=== PATIENT | female | born 1955 | race Caucasian/White ===

== ENCOUNTER 2023-07-06 10:53 | Outpatient (OUT) | payer MEDICARE, OTHER, SELFPAY ==
--- NOTE | 2023-07-06 10:55 | MM_ITS ---
Patient: TANYA WOODS Exam Date: 07/06/2023 : 1955 Gender:F Ordering : DR Karen Oneill M.D. Admission #: [id number] Family : Order #: [id number] CLICK HERE TO VIEW EXAM RADIOLOGY REPORT PROCEDURE: MM TOMOSYNTHESIS SCREENING BI COMPARISON: MG MAMM SCREEN ALCIDES W CAD, 08/25/2020. MG MAMM SCREEN ALCIDES W CAD, 09/13/2018. MG MAMM ALCIDES SCRN W CAD DIG, 10/03/2016. MG MAMM ALCIDES SCRN W CAD DIG, 04/08/2013. INDICATIONS: Screening Calculator Name NCI Breast Cancer Risk Assessment Tool 5 Year Breast Cancer Risk 1.40% Lifetime Breast Cancer Risk 5.00% Personal Breast Cancer No Personal Ovarian Cancer No Treatments None Family Cancers Mother with uterine cancer at age 50. LOCATION: [facility] [place] BREAST COMPOSITION: Heterogeneously dense,which may obscure small masses. FINDINGS: DIAGNOSTIC CATEGORY 2--BENIGN FINDING: RIGHT BREAST: No significant suspicious finding. Scattered benign-appearing nodules are present. Scattered benign-appearing calcifications are present. No significant change has occurred. LEFT BREAST: No significant suspicious finding. Scattered benign-appearing nodules are present. Scattered benign-appearing calcifications are present. No significant change has occurred. RECOMMENDATIONS: ROUTINE MAMMOGRAM AND CLINICAL EVALUATION IN 12 MONTHS. PLEASE NOTE: A NORMAL MAMMOGRAM DOES NOT EXCLUDE THE POSSIBILITY OF BREAST CANCER. A CLINICALLY SUSPICIOUS PALPABLE LUMP SHOULD BE BIOPSIED. Dictated by: Elijah Dailey M.D. on 07/07/2023 at 11:16 Approved by: Elijah Dailey M.D. on 07/07/2023 at 11:18
== END 2023-07-06 10:54 | disposition home or self-care (01) ==
LOC: MAMMO 10:53
PROVIDERS: PCP Family Medicine; Visit Provider Family Medicine
DX: Z12.31 Encounter for screening mammogram for malignant neoplasm of breast (principal); Z80.49 Family history of malignant neoplasm of other genital organs
CPT/HCPCS: 77063; 77067

== ENCOUNTER 2023-07-11 13:52 | Outpatient (OUT) | payer MEDICARE, OTHER, SELFPAY ==
--- NOTE | 2023-07-11 14:02 | ECG_ITS ---
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
--- NOTE | 2023-07-11 14:24 | XR_ITS ---
The [address] [address] Patient Name: TANYA WOODS MRN: [id number] date: 1955 Sex: F Assigned Patient Location: RAD Current Patient Location: RAD Accession/Order Number: [id number] Exam Date: 07/11/2023 14:27 Report Date: 07/11/2023 16:07 At the request of: CORDELL MASTERS Procedure: XR chest 2V EXAMINATION: XR chest 2V, 07/11/2023 2:27 PM EDT HISTORY: Cough, congestion COMPARISON: CT 08/12/2019 TECHNIQUE: PA and lateral views of the chest were obtained. FINDINGS: Medical devices: None. Cardiomediastinal silhouette is within normal limits. Minimal linear atelectasis/scarring in the lingula and anterior left lower lobe. Lungs are otherwise clear. No pleural effusion or pneumothorax. No acute bony or soft tissue abnormalities. XR/XR chest 2V IMPRESSION: 1. No acute cardiopulmonary abnormality. Electronically authenticated by: VIVIAN DRAPER Date: 07/11/2023 16:07
== END 2023-07-11 13:53 | disposition home or self-care (01) ==
LOC: RAD 13:56
PROVIDERS: PCP Family Medicine; Visit Provider Family Medicine
DX: R07.9 Chest pain, unspecified (principal)
CPT/HCPCS: 71046; 93005

== ENCOUNTER 2024-04-06 11:10 | Outpatient (OUT) | payer MEDICARE, OTHER, SELFPAY ==
[2024-04-06 11:49] LABS: Microalbum Creatinine Ratio Ur 6.9 mg/g (0.0-29.9)
[2024-04-06 11:52] LABS: Basophils Absolute Auto 0.1 10^3/uL (0.0-0.1); Basophils Percent Auto 0.7 % (0.2-2.0); Eosinophils Absolute Auto 0.1 10^3/uL (0.0-0.7); Eosinophils Percent Auto 1.4 % (0.9-7.0); Hematocrit 43.3 % (36.0-48.0); Immature Granulocytes Abs Auto 0.03 10^3/uL (0.00-0.03); Immature Granulocytes Pct Auto 0.4 % (0.0-0.5); Lymphocytes Percent Auto 23.1 % (20.5-60.0); Mean Corpuscular HGB Conc 32.3 g/dL (29.9-35.2); Mean Corpuscular Hemoglobin 31.2 pg (26.7-34.0); Mean Corpuscular Volume 96.4 fL (81.0-99.0); Mean Platelet Volume 9.1 fL (9.5-13.5); Monocytes Absolute Auto 0.5 10^3/uL (0.3-0.8); Monocytes Percent Auto 6.1 % (1.7-12.0); Neutrophils Absolute Auto 5.8 10^3/uL (1.4-6.5); Neutrophils Percent Auto 68.3 % (43.0-75.0); Platelet Count 375 10^3/uL (150-450); Red Blood Count 4.49 10^6/uL (4.20-5.40); Red Cell Distribution Width 12.7 % (11.0-15.0); White Blood Count 8.5 10^3/uL (4.0-11.0)
[2024-04-06 12:13] LABS: Free T4 1.07 ng/dL (0.76-1.46)
[2024-04-06 12:17] LABS: Alanine Aminotransferase 19 U/L (14-59); Albumin Globulin Ratio 0.8; Albumin Level 3.3 g/dL (3.4-5.0); Alkaline Phosphatase 99 U/L (46-116); Anion Gap 13.2; Aspartate Amino Transferase 9 U/L (15-37); BUN Creatinine Ratio 6.1; Bilirubin Total 0.7 mg/dL (0.2-1.0); Calcium 8.5 mg/dL (8.5-10.1); Carbon Dioxide 27.3 mmol/L (21.0-32.0); Chloride 101 mmol/L (98-107); Chol HDL Ratio 3.6; Cholesterol 153 mg/dL (<=200); Estimated GFR (African America >60 (>=60); Estimated GFR (Non-African Ame >60 (>=60); Glucose 146 mg/dL (74-106); HDL Cholesterol 43 mg/dL (40-60); Potassium 3.5 mmol/L (3.5-5.1); Sodium 138 mmol/L (136-145); Thyroid Stimulating Hormone 5.119 uIU/mL (0.358-3.740); Total Protein 7.3 g/dL (6.4-8.2); Triglycerides 206 mg/dL (<=150); VLDL CHOLESTEROL 41.2 mg/dL
[2024-04-06 13:22] LABS: Bilirubin Urine NEGATIVE (NEGATIVE); Blood Urine NEGATIVE (NEGATIVE); Clarity Urine CLEAR (CLEAR); Color Urine YELLOW (YELLOW); Glucose Urine UA NEGATIVE (NEGATIVE); Ketones Urine NEGATIVE (NEGATIVE); Leukocyte Esterase Urine NEGATIVE (NEGATIVE); Nitrite Urine NEGATIVE (NEGATIVE); Protein Urine TRACE mg/dL (NEG/TRACE); Specific Gravity Urine >=1.030 (1.005-1.025); Urobilinogen Urine 0.2 EU/dL (0.2-1.0)
[2024-04-06 13:27] LABS: Urine Microscopic Indicated NO
== END 2024-04-06 11:11 | disposition home or self-care (01) ==
PROVIDERS: PCP Nurse Practitioner; Visit Provider Nurse Practitioner
DX: E03.9 Hypothyroidism, unspecified (principal); E11.59 Type 2 diabetes mellitus with other circulatory complications; I10 Essential (primary) hypertension
CPT/HCPCS: 36415; 80053; 80061; 81003; 82043; 82570; 84439; 84443; 85025

== ENCOUNTER 2024-11-07 13:28 | Outpatient (OUT) | payer MEDICARE, OTHER, SELFPAY ==
[2024-11-07 14:39] LABS: Basophils Absolute Auto 0.1 10^3/uL (0.0-0.1); Basophils Percent Auto 0.8 % (0.2-2.0); Eosinophils Absolute Auto 0.1 10^3/uL (0.0-0.7); Eosinophils Percent Auto 1.7 % (0.9-7.0); Hematocrit 42.6 % (36.0-48.0); Hemoglobin 14.2 g/dL (12.0-16.0); Immature Granulocytes Abs Auto 0.02 10^3/uL (0.00-0.03); Immature Granulocytes Pct Auto 0.3 % (0.0-0.5); Lymphocytes Absolute Auto 1.7 10^3/uL (1.2-3.8); Lymphocytes Percent Auto 25.4 % (20.5-60.0); Mean Corpuscular HGB Conc 33.3 g/dL (29.9-35.2); Mean Corpuscular Hemoglobin 31.2 pg (26.7-34.0); Mean Corpuscular Volume 93.6 fL (81.0-99.0); Mean Platelet Volume 9.3 fL (9.5-13.5); Monocytes Absolute Auto 0.6 10^3/uL (0.3-0.8); Monocytes Percent Auto 8.6 % (1.7-12.0); Neutrophils Absolute Auto 4.2 10^3/uL (1.4-6.5); Neutrophils Percent Auto 63.2 % (43.0-75.0); Platelet Count 361 10^3/uL (150-450); Red Blood Count 4.55 10^6/uL (4.20-5.40); Red Cell Distribution Width 13.1 % (11.0-15.0); White Blood Count 6.6 10^3/uL (4.0-11.0)
[2024-11-07 15:13] LABS: Anion Gap 9.5; BUN Creatinine Ratio 10.4; Calcium 8.2 mg/dL (8.5-10.1); Carbon Dioxide 30.6 mmol/L (21.0-32.0); Chloride 102 mmol/L (98-107); Estimated GFR (African America >60 (>=60 mL/min/1.73m^2); Estimated GFR (Non-African Ame 52 (>=60 mL/min/1.73m^2); Glucose 172 mg/dL (74-106); Potassium 4.1 mmol/L (3.5-5.1); Sodium 138 mmol/L (136-145); Thyroid Stimulating Hormone 1.524 uIU/mL (0.358-3.740)
== END 2024-11-07 13:29 | disposition home or self-care (01) ==
LOC: LAB 13:30
PROVIDERS: PCP Nurse Practitioner; Visit Provider Nurse Practitioner
DX: E03.9 Hypothyroidism, unspecified (principal); I63.9 Cerebral infarction, unspecified; E11.59 Type 2 diabetes mellitus with other circulatory complications
CPT/HCPCS: 36415; 80048; 84439; 84443; 85025

== ENCOUNTER 2024-11-13 14:01 | Outpatient (OUT) | payer MEDICARE, OTHER, SELFPAY ==
--- OUTSIDE RECORDS SUMMARY | 2024-11-13 14:28 | XMS_ITS | CCD ---
Author Organization [facility] Care Team Providers Care Refrigeration Engineer Name Role Phone Cordell Masters Primary Care Provider BHARAT ARMANDO Referring Unavailable SARA-TORI PEDRAZA Consulting Unavailable DAVID KEY Admitting Unavailable CORBY CHARLES Attending Unavailable RANDAL, LILLIAM Mera Consulting Unavailable CHIQUIJATINDER ELLISON Consulting Unavailable JAGDISHLEONORA WRIGHT Consulting Unavailable AOUAMYLES Campo Consulting Unavailable CHRIS BUTLER Consulting Unavailable LUCINA RIVAS Consulting Unavailable ERICK CAIN Consulting Unavailable MANOLO CONKLIN Referring Unavailable CORDELL MASTERS Primary Care Unavailable LONGTHORNE POORNIMA Referring Unavailable CORDELL MASTERS Primary Care Unavailable Cordell Masters MD Primary Care Provider DR CORDELL MASTERS Primary Care Unavailable GUERRERO, DR CORDELL Reed Admitting Unavailable GUERRERO, DR CORDELL Reed Attending Unavailable GUERRERO, DR CORDELL Reed Consulting Unavailable GUERRERO, DR CORDELL Reed Primary Care Unavailable GUERRERO, DR CORDELL Reed Admitting Unavailable GUERRERO, DR CORDELL Reed Attending Unavailable GUERRERO, DR CORDELL Reed Consulting Unavailable Cordell Masters Unavailable RANDAL, GEOFF Attending Unavailable RANDAL, GEOFF Referring Unavailable CORDELL MASTERS Primary Care Unavailable RANDAL, GEOFF Attending Unavailable RANDAL, GEOFF Referring Unavailable CORDELL MASTERS Primary Care Unavailable RANDAL, GEOFF Attending Unavailable RANDAL, GEOFF Referring Unavailable CORDELL MASTERS Primary Care Unavailable RANDAL, GEOFF Attending Unavailable RANDAL, GEOFF Referring Unavailable CORDELL MASTERS Primary Care Unavailable RANDAL, GEOFF Attending Unavailable RANDAL, GEOFF Referring Unavailable CORDELL MASTERS Primary Care Unavailable Anna PET HOUSE SITTER, Monika Unavailable Joshua BROWNPaul Primary Care Provider [phone] Anna PET HOUSE SITTER, Monika Unavailable HALLE BYERS Attending Unavailable NATHANIEL MURILLO Referring Unavailable MONIKA CASTILLO Attending Unavailable MONIKA CASTILLO Attending Unavailable HALLE BYERS Attending Unavailable HALLE BYERS Attending Unavailable MONIKA CASTILLO Attending Unavailable Medications Current Medications Medication Drug Class(es) Dates Sig (Normalized) Sig (Original) 3 ML semaglutide 1.34 MG/ML Pen Injector [Ozempic] (3 sources) Start: 03-10-2023 Ozempic (1 MG/DOSE) 4 MG/3ML as directed Subcutaneous February, Active amLODIPine 10 mg oral tablet (16 sources) Dihydropyridine Calcium Channel Ryley Start: 04-03-2024 End: 01-22-2025 take 1 tablet by mouth once daily amLODIPine (Norvasc) 10 MG tablet Indications: Primary hypertension (CMS/HCC) Take 1 tablet (10 mg) by mouth Daily 90 tablet 1 10/24/2024 01/22/2025 Active Start: 01-01-2024 take 10 mg by mouth once daily Amlodipine Active 10 MG PO Daily January 01, 2024 12:00am take 1 tablet by hailey th every twenty-four hours amLODIPine Besylate 10 MG 1 tablet Orally Once a day Active aspirin 81 mg oral tablet (4 sources) Platelet Aggregation Inhibitor, Nonsteroidal Anti-inflammatory Drug take 81 mg by mouth once daily ASPIRIN 81 PO Take 81 mg by mouth Daily Active atorvastatin 80 mg oral tablet (11 sources) HMG-CoA Reductase Inhibitor Start: 024 End: 025 take 1 tablet by mouth at bedtime atorvastatin (Lipitor) 80 MG tablet Indications: 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/HCC) Take 1 tablet (80 mg) by mouth at bedtime 90 tablet 1 10/24/2024 01/22/2025 Active Start: 01-01-2024 take 1 tablet by hailey th once daily Atorvastatin Active 0 .ROUTE .COMPLEX January 01, 2024 10:06am TAKE 1 TABLET BY MOUTH EVERY DAY FOR 90 DAYS Start: 01-01-2024 End: 01-01-2024 take 80 mg by mouth once daily Atorvastatin Discontinu ed 80 MG PO Daily 90 90 January 01, 2024 12:00am January 01, 2024 10:06am carvedilol 25 mg oral tablet (19 sources) alpha-Adrenergic Ryley, beta-Adrenergic Ryley Start: 04-03-2024 End: 01-22-2025 take 1 tablet by mouth in the morning carvedilol (Coreg) 25 MG tablet Indications: Primary hypertension (CMS/HCC) Take 1 tablet (25 mg) by mouth in the morning and 1 tablet (25 mg) in the evening. Take with meals. 180 tablet 1 10/24/2024 01/22/2025 Active Start: 01-01-2024 take 25 mg by mouth twice pura y Carvedilol Active 25 MG PO Twice daily January 01, 2024 12:00am take 1 tablet by hailey th every twelve hours Carvedilol 25 MG 1 tablet with food Orally Twice a day Active take 1 tablet by hailey th twice daily at mealtime carvedilol (COREG) 12.5 MG tablet Take 12.5 mg by mouth 2 times daily (with meals) 0 Active clopidogrel 75 mg oral tablet (13 sources) [id number] Platelet Inhibitor Start: 08-09-2024 End: 01-22-2025 take 1 tablet by mouth once daily clopidogrel (Plavix) 75 MG tablet Indications: Cerebrovascular accident (CVA), unspecified mechanism (CMS/HCC) Take 1 tablet (75 mg) by mouth Daily 90 tablet 1 10/24/2024 01/22/2025 Active Start: 01-01-2024 take 75 mg by mouth once daily Clopidogrel Active 75 MG PO Daily January 01, 2024 12:00am take 1 tablet by hailey th once daily Clopidogrel Bisulfate 75 MG TAKE 1 TABLET BY MOUTH EVERY DAY for 90 Active escitalopram 10 mg oral tablet (15 sources) Serotonin Reuptake Inhibitor Start: 04-03-2024 End: 01-22-2025 take 1 tablet by mouth once daily escitalopram (Lexapro) 10 MG tablet Indications: Anxiety and depression (CMS/HCC) Take 1 tablet (10 mg) by mouth Daily 90 tablet 1 10/24/2024 01/22/2025 Active Start: 01-01-2024 take 10 mg by mouth once daily Escitalopram Oxalate Active 10 MG PO Daily January 01, 2024 12:00am take 1 tablet by hailey th every twenty-four hours Lexapro 10 MG 1 tablet Orally Once a day for 30 days Active glipiZIDE 10 mg oral tablet (14 sources) Sulfonylurea Start: 04-03-2024 take 1 tablet by mouth once daily glipiZIDE (Glucotrol) 10 MG tablet Indications: 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/HCC) Take 1 tablet (10 mg) by mouth Daily 90 tablet 1 04/03/2024 Active Start: 01-01-2024 take 10 mg by mouth once daily Glipizide Active 10 MG PO Daily January 01, 2024 12:00am take 1 tablet by hailey th once daily glipiZIDE 10 MG TAKE 1 TABLET BY MOUTH EVERY DAY for 90 Active hyoscyamine sulfate 0.125 mg oral tablet (6 sources) take 1 tablet by mouth every four hours as needed hyoscyamine (ANASPAZ;LEVSIN) 125 MCG tablet Take 125 mcg by mouth every 4 hours as needed for Cramping 0 Active 3 ml insulin glargine 100 unt/ml pen injector (7 sources) Insulin Analog Start: 05-23-20 24 insulin glargine (Lantus SoloStar) 100 UNIT/ML pen Indications: 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/HCC) Inject 24 Units under the skin at bedtime 15 mL 3 05/23/2024 Active levothyroxine sodium 0.112 mg oral tablet (20 sources) l-Thyroxine Start: 10-16-19 End: 01-23-20 take 1 tablet by mouth before mealtime levothyroxine (Synthroid, Levoxyl) 112 MCG tablet Indications: Hypothyroidism, unspecified type (CMS/HCC) Take 1 tablet (112 mcg) by mouth in the morning. Take before meals. 90 tablet 1 10/24/2024 01/22/2025 Active Start: 04-03-2024 take 1 tablet by hailey th before mealtime levothyroxine (Synthroid, Levoxyl) 112 MCG tablet Indications: Hypothyroidism, unspecified type (CMS/HCC) Take 1 tablet (112 mcg) by mouth in the morning. Take before meals. 90 tablet 1 04/03/2024 Active Start: 01-15-2024 take 1 tablet by hailey th once daily Levothyroxine Active 0 .ROUTE .COMPLEX 90 January 15, 2024 12:35pm TAKE 1 TABLET BY MOUTH EVERY DAY Start: 01-01-2024 End: 01-15-2024 take 112 ug by mouth once daily Levothyroxine Discontinued 112 MCG PO Daily January 01, 2024 12:00am January 15, 2024 12:35pm Start: 01-12-2023 take 1 tablet by hailey th every twenty-four hours Levothyroxine Sodium 112 MCG 1 tablet Orally Once a day for 90 days Dec, Active take 1 tablet by hailey th once daily Levothyroxine Sodium 112 MCG TAKE 1 TABLET BY MOUTH EVERY DAY for 90 Active take 1 tablet by hailey th once daily levothyroxine (SYNTHROID) 150 MCG tablet Take 150 mcg by mouth Daily 0 Active 24 hr metFORMIN hydrochloride 500 mg extended release oral tablet (13 sources) Biguanide Start: 01-01-2024 take 500 mg by mouth once daily Metformin Active 500 MG PO Daily January 01, 2024 12:00am Start: 01-09-2023 take 1 tablet by hailey th every twenty-four hours metFORMIN HCl ER 500 MG 1 tablet Orally Once a day for 90 days Dec, Active take 1 tablet by mouth once pura y metFORMIN (GLUCOPHAGE) 500 MG tablet Take 500 mg by mouth nightly 0 Active metoprolol tartrate 25 mg oral tablet (3 sources) beta-Adrenergic Ryley Start: 08-24-2019 take 1 tablet by mouth twice daily metoprolol tartrate (LOPRESSOR) 25 MG tablet Take 1 tablet by mouth 2 times daily 60 tablet 3 08/24/2019 Active ozempic (1 mg/dose) 4 mg/3ml solution pen-injector (3 sources) Start: 03-10-2023 Ozempic (1 MG/DOSE) 4 MG/3ML as directed Subcutaneous February, Active pen needle 33G x 4 mm misc (7 sources) Start: 03-14-2024 pen needle 33G x 4 mm misc Indications: 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/HCC) Injections subcutaneous daily 100 each 3 03/14/2024 Active Semaglutide (1 source) Start: 01-01-2024 Semaglutide Active 1 MG SUBCUT As Directed January 01, 2024 12:00am Semaglutide,0.25 or 0.5MG/DOS, (Ozempic, 0.25 or 0.5 MG/DOSE,) 2 MG/3ML solution pen-injector (7 sources) Semaglutide,0.25 or 0.5MG/DOS, (Ozempic, 0.25 or 0.5 MG/DOSE,) 2 MG/3ML solution pen-injector Inject 0.5 mg under the skin every 7 (seven) days Active SITagliptin 100 mg oral tablet (6 sources) Dipeptidyl Peptidase 4 Inhibitor Start: 08-22-2019 take 1 tablet by mouth once daily JANUVIA 100 MG tablet TAKE 1 TABLET BY MOUTH EVERY DAY 0 08/22/2019 Active sulfamethoxazole 800 mg / trimethoprim 160 mg oral tablet (3 sources) Dihydrofolate Reductase Inhibitor Antibacterial, Sulfonamide Antimicrobial Start: 03-10-2023 take 1 tablet by mouth every twelve hours Bactrim DS 800-160 MG 1 tablet Orally Twice a day for 10 day(s) February, Active Completed/Discontinued Medications Medication Drug Class(es) Dates Sig (Normalized) Sig (Original) levoFLOXacin 750 mg oral tablet (4 sources) Quinolone Antimicrobial Start: 01-01-2024 End: 01-25-2024 take 750 mg by mouth once daily Levofloxacin Discontinued 750 MG PO Daily January 01, 2024 12:00am January 25, 2024 10:46am take 1 tablet by mouth once pura y Levaquin 750 MG 1 tablet Orally Once a day for 5 days Active Problems Active Problems Problem Classification Problem Date Documented Da te Episodic/Chronic Acute cerebrovascular disease (9 sources) Cerebrovascular accident; Translations: [Cerebral infarction, unspecified] Onset: 04-08-2024 04-08-2024 Chronic Anxiety disorders (16 sources) Mixed anxiety and depressive disorder; Translations: [Other specified anxiety disorders] Onset: 04-03-2024 Chronic Chronic obstructive pulmonary disease and bronchiectasis (2 sources) Bronchitis, not specified as acute or chronic; Translations: [BRONCHITIS NOT SPEC ACUTE/CHRON] Onset: 04-13-2022 Episodic Diabetes mellitus with complications (18 sources) Type 2 diabetes mellitus with hyperglycemia; Translations: [Type 2 diabetes mellitus] Onset: 08-14-2019 08-19-2024 Chronic Diabetes mellitus without complication (20 sources) Type 2 diabetes mellitus without complication; Translations: [Type 2 diabetes mellitus without complications] Onset: 08-14-2019 08-14-2019 Chronic Essential hypertension (15 sources) Essential hypertension; Translations: [Essential (primary) hypertension] Onset: 04-03-2024 04-03-2024 Chronic Malaise and fatigue (10 sources) Chronic fatigue, unspecified; Translations: [Fatigue] Onset: 03-10-2023 Chronic Malaise and fatigue (6 sources) Fatigue; Translations: [Other fatigue] Episodic Mood disorders (6 sources) Depression; Translations: [Depression] Chronic Other aftercare (16 sources) Long-term current use of insulin; Translations: [senior care (current) use of insulin] Onset: 08-23-2024 Resolved: 10-24-2024 08-23-2024 Episodic Other gastrointestinal disorders (1 source) Irritable bowel syndrome; Translations: [Mixed irritable bowel syndrome] Chronic Other lower respiratory disease (1 source) Other forms of dyspnea; Translations: [Other forms of dyspnea] Onset: 08-17-2023 Episodic Other lower respiratory disease (1 source) Shortness of breath; Translations: [Shortness of breath] Onset: 08-17-2023 Episodic Other nutritional; endocrine; and metabolic disorders (7 sources) Obesity caused by energy imbalance; Translations: [Class 1 obesity due to excess calories in adult] Onset: 05-08-2024 05-08-2024 Chronic Other nutritional; endocrine; and metabolic disorders (2 sources) Hypocalcemia; Translations: [Hypocalcemia] Onset: 11-08-2024 11-08-2024 Chronic Thyroid disorders (20 sources) Hypothyroidism; Translations: [Hypothyroidism, unspecified] Onset: 08-14-2019 08-14-2019 Chronic Past or Other Problems Problem Classification Problem Date Documented Da te Episodic/Chronic Mood disorders (7 sources) Mood disorders Onset: 05-08-2024 05-08-2024 Other connective tissue disease (7 sources) Bursitis of left shoulder; Translations: [Bursitis of left shoulder] Onset: 05-08-2024 Resolved: 05-08-2024 05-08-2024 Episodic Other non-traumatic joint disorders (9 sources) Chronic pain of left upper limb; Translations: [Pain in left shoulder] Onset: 05-08-2024 05-08-2024 Episodic Other screening for suspected conditions (not mental disorders or infectious disease) (7 sources) Patient encounter status; Translations: [Encounter for screening mammogram for malignant neoplasm of breast] Onset: 04-04-2024 04-04-2024 Episodic Other upper respiratory infections (7 sources) Acute upper respiratory infection; Translations: [Acute upper respiratory infection, unspecified] Onset: 04-03-2024 Resolved: 10-24-2024 04-03-2024 Episodic Radha-; endo-; and myocarditis; cardiomyopathy (except that caused by tuberculosis or sexually transmitted disease) (20 sources) Pericardial effusion; Translations: [Acute bloody pericarditis] Onset: 08-13-2019 08-14-2019 Episodic Pleurisy; pneumothorax; pulmonary collapse (19 sources) Pleural effusion; Translations: [Atelectasis] 08-22-2019 Episodic Pneumonia (except that caused by tuberculosis or sexually transmitted disease) (6 sources) Infective pneumonia; Translations: [Pneumonia due to infectious organism] Onset: 08-14-2019 08-14-2019 Episodic Residual codes; unclassified (1 source) History of pericardiectomy; Translations: [S/P pericardial window creation] Episodic Viral infection (12 sources) Coxsackie virus disease; Translations: [Enterovirus infection, unspecified] Onset: 10-23-2019 10-23-2019 Episodic Results Test Name Value Interpretation Reference Range Facility ALL CBC WITH AUTO DIFFon BASOPHILS ABSOLUTE AUTO 0.1 [facility] Basophils/100 WBC (Bld) 0.8 % 0.2 - 2.0 % [facility] Eosinophils/100 WBC (Bld) 1.7 % 0.9 - 7.0 % [facility] Erythrocyte distribution width (RBC) [Ratio] 13.1 % 11.0 - 15.0 % [facility] Hematocrit (Bld) [Volume fraction] 42.6 % 36.0 - 48.0 % [facility] Hemoglobin (Bld) [Mass/Vol] 14.2 g/dL 12.0 - 16.0 g/dL [facility] IMMATURE GRANULOCYTES ABS AUTO 0.02 [facility] Immature granulocytes/100 WBC (Bld) 0.3 % 0.0 - 0.5 % [facility] Interpretation and review of laboratory results Abnormal [facility] LYMPHOCYTES ABSOLUTE AUTO 1.7 [facility] Lymphocytes/100 WBC (Bld) 25.4 % 20.5 - 60.0 % [facility] MCH (RBC) [Entitic mass] 31.2 pg 26.7 - 34.0 pg [facility] MCHC (RBC) [Mass/Vol] 33.3 g/dL 29.9 - 35.2 g/dL [facility] MCV (RBC) [Entitic vol] 93.6 fL 81.0 - 99.0 fL [facility] MONOCYTES ABSOLUTE AUTO 0.6 [facility] Monocytes/100 WBC (Bld) 8.6 % 1.7 - 12.0 % [facility] NEUTROPHILS ABSOLUTE AUTO 4.2 [facility] Neutrophils/100 WBC (Bld) 63.2 % 43.0 - 75.0 % [facility] Platelet mean volume (Bld) [Entitic vol] 9.3 fL Low 9.5 - 13.5 fL [facility] TBH EO # 0.1 [facility] PLT 361 [facility] RBC 4.55 [facility] WBC 6.6 [facility] HbA1c (Bld) [Mass fraction]o n 08-23-2024 Interpretation and review of laboratory results Normal [facility] - Hematology and Cell countson 08-23-2024 HbA1c (Bld) [Mass fraction] 6.6 % [facility] CBC AUTO DIFFon 03-10-2023 BASO # 0.0 103/ul Normal 0.0-0.1 [facility] Comment on above: Performed By: #### C BC #### [facility] [address] [place] [address] Dr. Almaz Hayward Basophils/100 WBC (Bld) 0.5 % Normal 0.2-2.0 [facility] Comment on above: Performed By: #### C BC #### [facility] [address] [place] [address] Dr. Almaz Hayward EO # 0.0 103/ul Normal 0.0-0.7 [facility] Comment on above: Performed By: #### C BC #### [facility] [address] [place] [address] Dr. Almaz Hayward Eosinophils/100 WBC (Bld) 0.5 % Critically low 0.9-7.0 [facility] Comment on above: Performed By: #### C BC #### [facility] [address] [place] [address] Dr. Almaz Hayward Erythrocyte distribution width (RBC) [Ratio] 12.6 % Normal 11.0-15.0 [facility] Comment on above: Performed By: #### C BC #### [facility] [address] [place] [address] Dr. Almaz Hayward Hematocrit (Bld) [Volume fraction] 46.3 % Normal 36.0-48.0 [facility] Comment on above: Performed By: #### C BC #### [facility] [address] [place] [address] Dr. Almaz Hayward Hemoglobin (Bld) [Mass/Vol] 15.8 g/dL Normal 12.0-16.0 [facility] Comment on above: Performed By: #### C BC #### [facility] [address] [place] [address] Dr. Almaz Hayward IG # 0.02 10e3/ul Normal 0.00-0.03 [facility] Comment on above: Performed By: #### C BC #### [facility] [address] [place] [address] Dr. Almaz Hayward IG % 0.3 % Normal 0.0-0.5 [facility] Comment on above: Performed By: #### C BC #### [facility] [address] [place] [address] Dr. Almaz Hayward LYMPH # 1.3 103/ul Normal 1.2-3.8 [facility] Comment on above: Performed By: #### C BC #### [facility] [address] [place] [address] Dr. Almaz Hayward Lymphocytes/100 WBC (Bld) 22.8 % Normal 20.5-60.0 [facility] Comment on above: Performed By: #### C BC #### [facility] [address] [place] [address] Dr. Almaz Hayward MANUAL DIFF REQ NO Normal [facility] Comment on above: Performed By: #### C BC #### [facility] [address] [place] [address] Dr. Almaz Hayward MCH (RBC) [Entitic mass] 30.9 pg Normal 26.7-34.0 [facility] Comment on above: Performed By: #### C BC #### [facility] [address] [place] [address] Dr. Almaz Hayward MCHC (RBC) [Mass/Vol] 34.1 g/dL Normal 29.9-35.2 [facility] Comment on above: Performed By: #### C BC #### [facility] [address] [place] [address] Dr. Almaz Hayward MCV (RBC) [Entitic vol] 90.4 fL Normal 81.0-99.0 [facility] Comment on above: Performed By: #### C BC #### [facility] [address] [place] [address] Dr. Almaz Hayward MONO # 0.3 103/ul Normal 0.3-0.8 [facility] Comment on above: Performed By: #### C BC #### [facility] [address] [place] [address] Dr. Almaz Hayward Monocytes/100 WBC (Bld) 5.6 % Normal 1.7-12.0 [facility] Comment on above: Performed By: #### C BC #### [facility] [address] [place] [address] Dr. Almaz Hayward NEUT # 4.1 103/ul Normal 1.4-6.5 [facility] Comment on above: Performed By: #### C BC #### [facility] [address] [place] [address] Dr. Almaz Hayward Neutrophils/100 WBC (Bld) 70.3 % Normal 43.0-75.0 [facility] Comment on above: Performed By: #### C BC #### [facility] [address] [place] [address] Dr. Almaz Hayward Platelet mean volume (Bld) [Entitic vol] 9.1 fL Critically low 9.5-13.5 [facility] Comment on above: Performed By: #### C BC #### [facility] [address] [place] [address] Dr. Almaz Hayward PLT 321 103/ul Normal 150-450 [facility] Comment on above: Performed By: #### C BC #### [facility] [address] [place] [address] Dr. Almaz Hayward RBC 5.12 106/ul Normal 4.20-5.40 [facility] Comment on above: Performed By: #### C BC #### [facility] [address] [place] [address] Dr. Almaz Hayward WBC 5.9 103/ul Normal 4.0-11.0 [facility] Comment on above: Performed By: #### C BC #### [facility] [address] [place] [address] Dr. Almaz Hayward FREE T4on 03-10-2023 Free T4 [Mass/Vol] 1.09 ng/dL Normal 0.76-1.46 [facility] Comment on above: Performed By: #### F T4 #### [facility] [address] [place] [address] Dr. Almaz Hayward GLYCOHEMOGLOBIN A1Con 2022 ADA RECOMMENDATION SEE BELOW Normal [facility] Comment on above: Result Comment: ADA RECOMMENDED LIMIT 4.0 - 6.0 ADA THERAPEUTIC TARGET < 7.0 ACTION SUGGESTED > 7.0 Performed By: #### A 1C #### [facility] [address] [place] [address] Dr. Almaz Hayward Glucose [Mass/Vol] 278 mg/dL Normal [facility] Comment on above: Performed By: #### A 1C #### [facility] [address] [place] [address] Dr. Almaz Hayward HbA1c (Bld) [Mass fraction] 11.3 % Critically high 4.5-6.2 [facility] Comment on above: Performed By: #### A 1C #### [facility] [address] [place] [address] Dr. Almaz Hayward PROF 14(COMP METB)on 023 Albumin [Mass/Vol] 3.8 g/dL Normal 3.4-5.0 [facility] Comment on above: Performed By: #### T SH, CMP #### [facility] [address] [address] [address] Almaz Hayward Albumin/Globulin [Mass ratio] 0.9 {ratio} Normal [facility] Comment on above: Performed By: #### T SH, CMP #### [facility] [address] [address] [address] Almaz Hayward ALP [Catalytic activity/Vol] 114 U/L Normal 46-116 [facility] Comment on above: Performed By: #### T SH, CMP #### [facility] [address] [address] [address] Almaz Hayward ALT [Catalytic activity/Vol] 25 U/L Normal 14-59 [facility] Comment on above: Performed By: #### T WEN, CMP #### [facility] [address] [place] [address] Dr. Almaz Hayward Anion gap [Moles/Vol] 14.9 mmol/L Normal [facility] Comment on above: Performed By: #### T WEN, CMP #### [facility] [address] [place] [address] Dr. lAmaz Hayward AST [Catalytic activity/Vol] 12 U/L Critically low 15-37 [facility] Comment on above: Performed By: #### T WEN, CMP #### [facility] [address] [place] [address] Dr. Almaz Hayward Bilirubin [Mass/Vol] 0.7 mg/dL Normal 0.2-1.0 [facility] Comment on above: Performed By: #### T WEN, CMP #### [facility] [address] [place] [address] Dr. Almaz Hayward Calcium [Mass/Vol] 9.3 mg/dL Normal 8.5-10.1 [facility] Comment on above: Performed By: #### T SH, CMP #### [facility] [address] [place] [address] Dr. Almaz Hayward Chloride [Moles/Vol] 98 mmol/L Normal 98-107 [facility] Comment on above: Performed By: #### T WEN, CMP #### [facility] [address] [address] [address] Almaz Hayward CO2 [Moles/Vol] 26.9 mmol/L Normal 21.0-32.0 [facility] Comment on above: Performed By: #### T SH, CMP #### [facility] [address] [address] [address] Almaz Hayward Creatinine [Mass/Vol] 0.89 mg/dL Normal 0.55-1.02 [facility] Comment on above: Performed By: #### T SH, CMP #### [facility] [address] [address] [address] Almaz Hayward EGFR-AF PALESTINIAN >60 Normal >=60 [facility] Comment on above: Performed By: #### T SH, CMP #### [facility] [address] [place] [address] Dr. Almaz Hayward EGFR-NON AF PALESTINIAN >60 Normal >=60 [facility] Comment on above: Performed By: #### T SH, CMP #### [facility] [address] [place] [address] Dr. Almaz Hayward Globulin (S) [Mass/Vol] 4.2 g/dL Normal [facility] Comment on above: Performed By: #### T SH, CMP #### [facility] [address] [place] [address] Dr. Almaz Hayward Glucose [Mass/Vol] 304 mg/dL Critically high 74-106 [facility] Comment on above: Performed By: #### T SH, CMP #### [facility] [address] [place] [address] Dr. Almaz Hayward Potassium [Moles/Vol] 3.8 mmol/L Normal 3.5-5.1 [facility] Comment on above: Performed By: #### T SH, CMP #### [facility] [address] [place] [address] Dr. Almaz Hayward Protein [Mass/Vol] 8.0 g/dL Normal 6.4-8.2 [facility] Comment on above: Performed By: #### T SH, CMP #### [facility] [address] [place] [address] Dr. Almaz Hayward Sodium [Moles/Vol] 136 mmol/L Normal 136-145 [facility] Comment on above: Performed By: #### T SH, CMP #### [facility] [address] [place] [address] Dr. Almaz Hayward Urea nitrogen [Mass/Vol] 10.0 mg/dL Normal 7.0-18.0 [facility] Comment on above: Performed By: #### T WEN, CMP #### [facility] [address] [place] [address] Dr. Almaz Hayward Urea nitrogen/Creatinine [Mass ratio] 11.2 mg/mg Normal [facility] Comment on above: Performed By: #### T WEN, CMP #### [facility] [address] [place] [address] Dr. Almaz Hayward TSHon 03-10-2023 TSH 2.289 uIU/mL Normal 0.358-3.740 [facility] Comment on above: Performed By: #### C VDTB #### [facility] [address] [place] [address] Dr. Almaz Hayward CBC AUTO DIFFon 04-08-2022 BASO # 0.1 103/ul Normal 0.0-0.1 [facility] Comment on above: Performed By: #### C VDTBH #### [facility] [address] [place] [address] Dr. Almaz Hayward Basophils/100 WBC (Bld) 0.6 % Normal 0.2-2.0 [facility] Comment on above: Performed By: #### C VDTBH #### [facility] [address] [place] [address] Dr. Almaz Hayward EO # 0.1 103/ul Normal 0.0-0.7 [facility] Comment on above: Performed By: #### C VDTBH #### [facility] [address] [place] [address] Dr. Almaz Hayward Eosinophils/100 WBC (Bld) 1.2 % Normal 0.9-7.0 [facility] Comment on above: Performed By: #### C VDTBH #### [facility] [address] [place] [address] Dr. Almaz Hayward Erythrocyte distribution width (RBC) [Ratio] 12.9 % Normal 11.0-15.0 [facility] Comment on above: Performed By: #### C VDTBH #### [facility] [address] [place] [address] Dr. Almaz Hayward Hematocrit (Bld) [Volume fraction] 43.1 % Normal 36.0-48.0 [facility] Comment on above: Performed By: #### C VDTBH #### [facility] [address] [place] [address] Dr. Almaz Hayward Hemoglobin (Bld) [Mass/Vol] 14.5 g/dL Normal 12.0-16.0 [facility] Comment on above: Performed By: #### C VDTBH #### [facility] [address] [place] [address] Dr. Almaz Hayward IG # 0.04 10e3/ul Critically high 0.00-0.03 [facility] Comment on above: Performed By: #### C VDTBH #### [facility] [address] [place] [address] Dr. Almaz Hayward IG % 0.5 % Normal 0.0-0.5 [facility] Comment on above: Performed By: #### C VDTBH #### [facility] [address] [place] [address] Dr. Almaz Hayward LYMPH # 1.6 103/ul Normal 1.2-3.8 [facility] Comment on above: Performed By: #### C VDTBH #### [facility] [address] [place] [address] Dr. Almaz Hayward Lymphocytes/100 WBC (Bld) 20.1 % Critically low 20.5-60.0 [facility] Comment on above: Performed By: #### C VDTBH #### [facility] [address] [place] [address] Dr. Almaz Hayward MANUAL DIFF REQ NO Normal [facility] Comment on above: Performed By: #### C VDTBH #### [facility] [address] [place] [address] Dr. Almaz Hayward MCH (RBC) [Entitic mass] 31.3 pg Normal 26.7-34.0 [facility] Comment on above: Performed By: #### C VDTBH #### [facility] [address] [place] [address] Dr. Almaz Hayward MCHC (RBC) [Mass/Vol] 33.6 g/dL Normal 29.9-35.2 [facility] Comment on above: Performed By: #### C VDTBH #### [facility] [address] [place] [address] Dr. Almaz Hayward MCV (RBC) [Entitic vol] 93.1 fL Normal 81.0-99.0 [facility] Comment on above: Performed By: #### C VDTBH #### [facility] [address] [place] [address] Dr. Almaz Hayward MONO # 0.5 103/ul Normal 0.3-0.8 [facility] Comment on above: Performed By: #### C VDTBH #### [facility] [address] [place] [address] Dr. Almaz Hayward Monocytes/100 WBC (Bld) 7.0 % Normal 1.7-12.0 [facility] Comment on above: Performed By: #### C VDTBH #### [facility] [address] [place] [address] Dr. Almaz Hayward NEUT # 5.5 103/ul Normal 1.4-6.5 [facility] Comment on above: Performed By: #### C VDTBH #### [facility] [address] [place] [address] Dr. Almaz Hayward Neutrophils/100 WBC (Bld) 70.6 % Normal 43.0-75.0 [facility] Comment on above: Performed By: #### C VDTBH #### [facility] [address] [place] [address] Dr. Almaz Hayward Platelet mean volume (Bld) [Entitic vol] 9.1 fL Critically low 9.5-13.5 [facility] Comment on above: Performed By: #### C VDTBH #### [facility] [address] [place] [address] Dr. Almaz Hayward PLT 364 103/ul Normal 150-450 [facility] Comment on above: Performed By: #### C VDTBH #### [facility] [address] [place] [address] Dr. Almaz Hayward RBC 4.63 106/ul Normal 4.20-5.40 [facility] Comment on above: Performed By: #### C VDTBH #### [facility] [address] [place] [address] Dr. Almaz Hayward WBC 7.7 103/ul Normal 4.0-11.0 [facility] Comment on above: Performed By: #### C VDTBH #### [facility] [address] [place] [address] Dr. Almaz Hayward Covid-19 PCR ([facility])on 03-17 SARS-CoV-2 (COVID-19) RNA TI+probe Ql (Unsp spec) Not detected Normal NOT DETECTED [facility] Comment on above: Result Comment: When diagnostic testing is negative, the possibility of a false negative should be considered in the context of a patient's recent exposures and the presence of clinical signs and symptoms consistent with SARS-CoV-2. This test is not yet approved or cleared by the [place] FDA. When there are no FDA-approved or cleared tests available, and other criteria are met, FDA can make tests available under an emergency access mechanism called an Emergency Use Authorization (EUA). The EUA for this test is supported by the Supervisor [place] [employer] of Health and Human Service's declaration that circumstances exist to justify the emergency use of in vitro diagnostics for the detection and/or diagnosis of the virus that causes COVID-19. This EUA will remain in effect for the duration of the COVID-19 declaration justifying emergency of IVDs, unless it is terminated or revoked by the FDA (after which the test may no longer be used). Performed By: #### C VDTBH #### [facility] [address] [address] [address] Almaz Hayward FREE T4on 04-08-2022 Free T4 [Mass/Vol] 1.29 ng/dL Normal 0.76-1.46 [facility] Comment on above: Performed By: #### F T4 #### [facility] [address] [address] [address] Almaz Hayward GLYCOHEMOGLOBIN A1Con 2021 ADA RECOMMENDATION SEE BELOW Normal [facility] Comment on above: Result Comment: ADA RECOMMENDED LIMIT 4.0 - 6.0 ADA THERAPEUTIC TARGET < 7.0 ACTION SUGGESTED > 7.0 Performed By: #### A 1C #### [facility] [address] [place] [address] Dr. Almaz Hayward Glucose [Mass/Vol] 163 mg/dL Normal [facility] Comment on above: Performed By: #### A 1C #### [facility] [address] [place] [address] Dr. Almaz Hayward HbA1c (Bld) [Mass fraction] 7.3 % Critically high 4.5-6.2 [facility] Comment on above: Performed By: #### A 1C #### [facility] [address] [place] [address] Dr. Almaz Hayward LIPID PROFILEon 04-08-2022 CHOL-HDL RATIO NORM SEE BELOW Normal [facility] Comment on above: Result Comment: 3.3 - 4.4 LOW RISK 4.4 - 7.1 AVERAGE RISK 7.1 - 11.0 MODERATE RISK >11.0 HIGH RISK Performed By: #### T SH, CMP, LIPID #### [facility] [address] [place] [address] Dr. Almaz Hayward Cholesterol [Mass/Vol] 160 mg/dL Normal <=200 [facility] Comment on above: Performed By: #### T SH, CMP, LIPID #### [facility] [address] [place] [address] Dr. Almaz Hayward Cholesterol in HDL [Mass/Vol] 43 mg/dL Normal 40-60 [facility] Comment on above: Performed By: #### T SH, CMP, LIPID #### [facility] [address] [address] [address] Almaz Hayward Cholesterol in LDL [Mass/Vol] 66.6 mg/dL Normal [facility] Comment on above: Performed By: #### T WEN, CMP, LIPID #### [facility] [address] [address] [address] Almaz Hayward Cholesterol.total/Ch olesterol in HDL [Mass ratio] 3.7 {ratio} Normal [facility] Comment on above: Performed By: #### T SH, CMP, LIPID #### [facility] [address] [address] [address] Almaz Hayward HDL NORMAL > or = 60 mg/dl - LO W CARDIOVASCULAR RISK <40 mg/dl - HIGH CARDIOVASCULAR RISK Normal [facility] Comment on above: Performed By: #### T WEN, CMP, LIPID #### [facility] [address] [place] [address] Dr. Almaz Hayward LDL CALC NORMAL SEE BELOW Normal [facility] Comment on above: Result Comment: <100 mg/dl OPTIMAL 100 - 129 mg/dl NEAR OR ABOVE OPTIMAL 130 - 159 mg/dl BORDERLINE HIGH 160 - 189 mg/dl HIGH >190 mg/dl VERY HIGH Performed By: #### T WEN CMP, LIPID #### [facility] [address] [place] [address] Dr. Almaz Hayward Triglyceride [Mass/Vol] 252 mg/dL Critically high <=150 [facility] Comment on above: Performed By: #### T WEN CMP, LIPID #### [facility] [address] [address] [address] Almaz Hayward VLDL CALC 50.4 mg/dL Normal [facility] Comment on above: Performed By: #### T SH, CMP, LIPID #### [facility] [address] [place] [address] Dr. Almaz Hayward PROF 14(COMP METB)on 022 Albumin [Mass/Vol] 3.5 g/dL Normal 3.4-5.0 [facility] Comment on above: Performed By: #### T SH, CMP, LIPID #### [facility] [address] [address] [address] Almaz Hayward Albumin/Globulin [Mass ratio] 0.9 {ratio} Normal [facility] Comment on above: Performed By: #### T SH, CMP, LIPID #### [facility] [address] [address] [address] Almaz Hayward ALP [Catalytic activity/Vol] 110 U/L Normal 46-116 [facility] Comment on above: Performed By: #### T SH, CMP, LIPID #### [facility] [address] [address] [address] Almaz Hayward ALT [Catalytic activity/Vol] 26 U/L Normal 14-59 [facility] Comment on above: Performed By: #### T SH, CMP, LIPID #### [facility] [address] [address] [address] Almaz Hayward Anion gap [Moles/Vol] 12.9 mmol/L Normal [facility] Comment on above: Performed By: #### T SH, CMP, LIPID #### [facility] [address] [address] [address] Almaz Hayward AST [Catalytic activity/Vol] 10 U/L Critically low 15-37 [facility] Comment on above: Performed By: #### T SH, CMP, LIPID #### [facility] [address] [address] [address] Almaz Hayward Bilirubin [Mass/Vol] 0.8 mg/dL Normal 0.2-1.0 [facility] Comment on above: Performed By: #### T SH, CMP, LIPID #### [facility] [address] [address] [address] Almaz Hayward Calcium [Mass/Vol] 8.7 mg/dL Normal 8.5-10.1 [facility] Comment on above: Performed By: #### T SH, CMP, LIPID #### [facility] [address] [address] [address] Almaz Hayward Chloride [Moles/Vol] 104 mmol/L Normal 98-107 [facility] Comment on above: Performed By: #### T SH, CMP, LIPID #### [facility] [address] [address] [address] Almaz Hayward CO2 [Moles/Vol] 27.0 mmol/L Normal 21.0-32.0 [facility] Comment on above: Performed By: #### T SH, CMP, LIPID #### [facility] [address] [address] [address] Almaz Hayward Creatinine [Mass/Vol] 0.71 mg/dL Normal 0.55-1.02 [facility] Comment on above: Performed By: #### T SH, CMP, LIPID #### [facility] [address] [address] [address] Almaz Hayward EGFR-AF PALESTINIAN >60 Normal >=60 [facility] Comment on above: Performed By: #### T SH, CMP, LIPID #### [facility] [address] [address] [address] Almaz Hayward EGFR-NON AF PALESTINIAN >60 Normal >=60 [facility] Comment on above: Performed By: #### T SH, CMP, LIPID #### [facility] [address] [address] [address] Almaz Hayward Globulin (S) [Mass/Vol] 4.1 g/dL Normal [facility] Comment on above: Performed By: #### T SH, CMP, LIPID #### [facility] [address] [address] [address] Almaz Hayward Glucose [Mass/Vol] 169 mg/dL Critically high 74-106 [facility] Comment on above: Performed By: #### T SH, CMP, LIPID #### [facility] [address] [address] [address] Almaz Hayward Potassium [Moles/Vol] 3.9 mmol/L Normal 3.5-5.1 [facility] Comment on above: Performed By: #### T SH, CMP, LIPID #### [facility] [address] [address] [address] Almaz Hayward Protein [Mass/Vol] 7.6 g/dL Normal 6.4-8.2 [facility] Comment on above: Performed By: #### T SH, CMP, LIPID #### [facility] [address] [address] [address] Almaz Hayward Sodium [Moles/Vol] 140 mmol/L Normal 136-145 [facility] Comment on above: Performed By: #### T SH, CMP, LIPID #### [facility] [address] [address] [address] Almaz Hayward Urea nitrogen [Mass/Vol] 10.0 mg/dL Normal 7.0-18.0 [facility] Comment on above: Performed By: #### T SH, CMP, LIPID #### [facility] [address] [address] [address] Almaz Hayward Urea nitrogen/Creatinine [Mass ratio] 14.1 mg/mg Normal [facility] Comment on above: Performed By: #### T SH, CMP, LIPID #### [facility] [address] [address] [address] Almaz Hayward TSHon 04-08-2022 TSH 0.096 uIU/mL Critically low 0.358-3.740 [facility] Comment on above: Performed By: #### T SH, CMP, LIPID #### [facility] [address] [place] [address] Dr. Almaz Naranjo 11-02-2019 Dontae rose. B1 1:80 Normal <1:10 [facility] Comment on above: Performed By: #### C DP, TROPI, BMP, CRP, SED #### [facility] [place] [address] Code And Test Clerk: MD Dontae Moran. B2 1:80 Normal <1:10 [facility] Comment on above: Performed By: #### C DP, TROPI, BMP, CRP, SED #### [facility] [address] [place] [address] [id number] Code And Test Clerk: MD Dontae Moran. B3 1:320 Normal <1:10 [facility] Comment on above: Performed By: #### C DP, TROPI, BMP, CRP, SED #### [facility] [place] [address] Code And Test Clerk: MD Dontae Moran. B4 1:320 Normal <1:10 [facility] Comment on above: Performed By: #### C DP, TROPI, BMP, CRP, SED #### [facility] [address] [place] [id number] Code And Test Clerk: MD Dontae Moran. B5 1:20 Normal <1:10 [facility] Comment on above: Performed By: #### C DP, TROPI, BMP, CRP, SED #### [facility] [address] [place] [id number] Code And Test Clerk: MD Dontae Moran. B6 <1:10 Normal <1:10 [facility] Comment on above: Result Comment: (NOT E) INTERPRETIVE INFORMATION: Coxsackie B Virus Single positive antibody titers of greater than or equal to 1:80 may indicate past or current infection. Sero- conversion or an increase in titers between acute and convalescent sera of at least fourfold is considered strong evidence of current or recent infection. Performed by [facility], [address] [place] [address] [id number] [email or web address], Clive Dowell MD, Lab. Director Performed By: #### C DP, TROPI, BMP, CRP, SED #### [facility] [employer] [address] [place] [id number] Code And Test Clerk: Campos Escobedo MD XR CHEST STANDARD (2 VW)Orde red By: Juanjo Coates on 10-21-2019 Interval decrease in the left effusion and improved aeration of the lung bases. No new airspace disease in the interval. [employer] Work Phone: EXAMINATION: TWO XRA Y VIEWS OF THE CHEST 10/21/2019 12:52 pm COMPARISON: September 06, 2019, August 24, 2019 HISTORY: ORDERING SYSTEM PROVIDED HISTORY: Pleural effusion on left TECHNOLOGIST PROVIDED HISTORY: pleural effusion FINDINGS: Interval decrease in left pleural effusion. Improved aeration of the lung bases. No new airspace disease, pneumothorax or evidence for edema. The cardiac mediastinal contours appear unchanged. No acute osseous abnormality identified. [employer] Phone: Yeyo, [facility] Incoming Radiant Results From [facility] - 10/21/2019 1:50 PM EST EXAMINATION: TWO XRAY VIEWS OF THE CHEST 10/21/2019 12:52 pm COMPARISON: September 06, 2019, August 24, 2019 HISTORY: ORDERING SYSTEM PROVIDED HISTORY: Pleural effusion on left TECHNOLOGIST PROVIDED HISTORY: pleural effusion FINDINGS: Interval decrease in left pleural effusion. Improved aeration of the lung bases. No new airspace disease, pneumothorax or evidence for edema. The cardiac mediastinal contours appear unchanged. No acute osseous abnormality identified. IMPRESSION: Interval decrease in the left effusion and improved aeration of the lung bases. No new airspace disease in the interval. [employer] Phone: Cult,Mycobacteriaon 10-07-20 19 Cult,Mycobacteria Specimen Description .THORACENTESIS FLUID Special Requests NOT REPORTED Direct Exam NO ACID FAST BACILLI SEEN (CONCENTRATED SMEAR) Culture NO GROWTH 44 DAYS Report Status FINAL 10/07/2019 [facility] Comment on above: Performed By: #### C DP, TROPI, BMP, CRP, SED #### [facility] [address] [place] [id number] Code And Test Clerk: Campos Escobedo MD Cult,Mycobacteria Specimen Description .PERICARDIAL FLUID Special Requests NOT REPORTED Direct Exam NO ACID FAST BACILLI SEEN (CONCENTRATED SMEAR) Culture NO GROWTH 45 DAYS Report Status FINAL 10/07/2019 [facility] Comment on above: Performed By: #### C DP, TROPI, BMP, CRP, SED #### [facility] [address] [place] [id number] Code And Test Clerk: Campos Escobedo MD Cult,Funguson 09-23-2019 Cult,Fungus Specimen Description .THORACENTESIS FLUID Special Requests NOT REPORTED Culture NO GROWTH 31 DAYS Report Status FINAL 09/23/2019 [facility] Comment on above: Performed By: #### C DP, TROPI, BMP, CRP, SED #### [facility] [address] [place] [address] [id number] Code And Test Clerk: Campos Escobedo MD Cult,Fungus Specimen Description .HEART Special Requests .TISSUE Culture NO GROWTH 33 DAYS Report Status FINAL 09/23/2019 Normal [facility] Comment on above: Performed By: #### C DP, TROPI, BMP, CRP, SED #### [facility] [address] [place] [address] [id number] Code And Test Clerk: Campos Escobedo MD Cult,Fungus Specimen Description .PERICARDIAL FLUID Special Requests NOT REPORTED Culture NO GROWTH 33 DAYS Report Status FINAL 09/23/2019 [facility] Comment on above: Performed By: #### C DP, TROPI, BMP, CRP, SED #### [address] [id number] Code And Test Clerk: Campos Escobedo MD ECHO Limitedon 09-04-2019 Transthoracic Echocardiography Report (TTE) Patient Name BLAKE Date of Study 09/04/2019 TANYA Date of 1955 Gender Female Age 64 year(s) Race Room Number Height: 65 inch, 165.1 cm Corporate ID [id number] Weight: 175 pounds, 79.4 kg # Patient Acct [id number] BSA: 1.87 m^2 BMI: 29.12 # kg/m^2 MR # [id number] [employer] Elaine,Alessandra Interpreting Physician Geoff Burr Fellow Referring Nurse Practitioner Interpreting Referring Physician HAN Story Fellow Type of Study TTE procedure:2D Echocardiogram, Limited Echo. Procedure Date Date: 09/04/2019 Start: 09:01 AM Study Location: [place] [facility] Technical Quality: Good visualization History / Tech. Comments: Procedure explained to patient. Limited echo to re-assess pericardial effusion. S/P Pericardial window, pericardial effusion, pneumonia Patient Status: Outpatient Height: 65 inches Weight: 175 pounds BSA: 1.87 m^2 BMI: 29.12 kg/m^2 HR: 66 bpm CONCLUSIONS Summary Limited Echo Global left ventricular systolic function is low normal. Estimated ejection fraction is 50 % . Calculated EF via heart model is 50 %. No significant pericardial effusion is seen. Anterior echo free space suggestive of adipose tissue is seen. Signature FINDINGS Left Ventricle Global left ventricular systolic function is low normal. Estimated ejection fraction is 50 % . Calculated EF via heart model is 50 %. Pericardial Effusion No significant pericardial effusion is seen. Anterior echo free space suggestive of adipose tissue is seen. 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 Procedure Date Date: 09/04/2019 Start: 09:01 AM Study Location: [facility] Technical Quality: Good visualization History / Tech. Comments: Procedure explained to patient. Limited echo to re-assess pericardial effusion. S/P Pericardial window, pericardial effusion, pneumonia Patient Status: Outpatient Height: 65 inches Weight: 175 pounds BSA: 1.87 m^2 BMI: 29.12 kg/m^2 HR: 66 bpm CONCLUSIONS Summary Limited Echo Global left ventricular systolic function is low normal. Estimated ejection fraction is 50 % . Calculated EF via heart model is 50 %. No significant pericardial effusion is seen. Anterior echo free space suggestive of adipose tissue is seen. Signature --------- - --------- - --------- - --------- - FINDINGS Left Ventricle Global left ventricular systolic function is low normal. Estimated ejection fraction is 50 % . Calculated EF via heart model is 50 %. Pericardial Effusion No significant pericardial effusion is seen. Anterior echo free space suggestive of adipose tissue is seen. [place], [place] Cult,Fluidon 08-29-2019 Cult,Fluid Specimen Description .THORACENTESIS FLUID Special Requests NOT REPORTED Direct Exam MODERATE NEUTROPHILS NO BACTERIA SEEN Gram stain made from cytocentrifuged specimen. Organisms and cells will be concentrated. Culture NO GROWTH 6 DAYS Report Status FINAL 08/29/2019 Normal [facility] Comment on above: Performed By: #### C DP, TROPI, BMP, CRP, SED #### [facility] [address] [place] [id number] Code And Test Clerk: Campos Escobedo MD Fluid Cell Count and Diffon 08-27-2019 Other Cells MONOCYTES, MESOTHELI AL CELLS Normal [facility] Comment on above: Result Comment: The reference range and other method performance specifications have not been established for this body fluid. The test result must be integrated into the clinical context for interpretation. Performed By: #### C DP, TROPI, BMP, CRP, SED #### [facility] [place] [address] Code And Test Clerk: Campos Escobedo MD LOIS Screenon 08-26-2019 LOIS Screen Negative Normal NEG [facility] Comment on above: Result Comment: This test was run on the [employer] LOIS test system. The system provides ten test results (HEp-2NA, dsDNA, SSA, SSB, Sm, BIO[employer]PERATIONS ENGINEER, Scl-70, Leonor-1, Centromere and Histone analytes) from a single patient sample. A negative LOIS screen indicates that the specimen was negative for all ten markers. Performed By: #### C DP, TROPI, BMP, CRP, SED #### [address] [address] Code And Test Clerk: Campos Escobedo MD LOIS Screen Negative Normal NEG [facility] [place] Comment on above: Result Comment: This test was run on the [employer] LOIS test system. The system provides ten test results (HEp-2NA, dsDNA, SSA, SSB, Sm, BIO[employer]S [employer] OPERATIONS ENGINEER, Scl-70, Leonor-1, Centromere and Histone analytes) from a single patient sample. A negative LOIS screen indicates that the specimen was negative for all ten markers. Performed By: #### C DP, TROPI, BMP, CRP, SED #### [place] [address] Code And Test Clerk: Campos Escobedo MD Anti CCPon 08-26-2019 Anti CCP <1.5 Normal <4.0 [facility] [place] Comment on above: Result Comment: Reference Range: 0.0-4.0 U/mL Non Reactive/Negative >4.0 U/mL Reactive/Positive Performed By: #### C DP, TROPI, BMP, CRP, SED #### [place] [address] Code And Test Clerk: MD Dontae Moran 08-26-2019 Dontae rose. B1 1:160 Normal <1:10 [facility] Comment on above: Performed By: #### C DP, TROPI, BMP, CRP, SED #### [address] [address] Code And Test Clerk: MD Dontae Moran. B2 1:320 Normal <1:10 [facility] Comment on above: Performed By: #### C DP, TROPI, BMP, CRP, SED #### [address] [address] Code And Test Clerk: MD Dontae Moran. B3 1:160 Normal <1:10 [facility] Comment on above: Performed By: #### C DP, TROPI, BMP, CRP, SED #### [facility] [address] [place] [address] Code And Test Clerk: MD Dontae Moran. B4 1:160 Normal <1:10 [facility] Comment on above: Performed By: #### C DP, TROPI, BMP, CRP, SED #### [facility] [address] [place] [address] Code And Test Clerk: MD Dontae Moran. B5 1:20 Normal <1:10 [facility] Comment on above: Performed By: #### C DP, TROPI, BMP, CRP, SED #### [facility] [address] [place] [address] Code And Test Clerk: MD Dontae Moran. B6 <1:10 Normal <1:10 [facility] Comment on above: Result Comment: (NOT E) INTERPRETIVE INFORMATION: Coxsackie B Virus Single positive antibody titers of greater than or equal to 1:80 may indicate past or current infection. Sero- conversion or an increase in titers between acute and convalescent sera of at least fourfold is considered strong evidence of current or recent infection. Performed by [facility], [address] [place] [phone] [email or web address], Clive Dowell MD, Lab. Director Performed By: #### C DP, TROPI, BMP, CRP, SED #### [facility] [place] [address] [place] [address] Code And Test Clerk: Campos Escobedo MD Cult,Aerobe/Anaerobeon 08-26 Cult,Aerobe/Anaerobe Specimen Descriptio n .PERITONEAL FLUID Special Requests NOT REPORTED Direct Exam FEW NEUTROPHILS NO BACTERIA SEEN Culture NO GROWTH 5 DAYS Report Status FINAL 08/26/2019 [facility] Comment on above: Performed By: #### C DP, TROPI, BMP, CRP, SED #### [address] [address] Code And Test Clerk: Campos Escobedo MD Cult,Tissueon 08-26-2019 Cult,Tissue Specimen Description .HEART Special Requests NOT REPORTED Direct Exam RARE NEUTROPHILS NO BACTERIA SEEN Culture NO GROWTH 5 DAYS Report Status FINAL 08/26/2019 [facility] Comment on above: Performed By: #### C DP, TROPI, BMP, CRP, SED #### [address] [id number] Code And Test Clerk: Campos Escobedo MD APTTon 08-24-2019 aPTT Coag (Bld) [Time] 23.9 s Normal 20.5-30.5 [facility] Comment on above: Performed By: #### C DP, TROPI, BMP, CRP, SED #### [address] [address] Code And Test Clerk: Campos Escobedo MD Basic Metabolic Profon 08-24 (cont.) [facility] Comment on above: Result Comment: Aver age GFR for 60-69 years old: 85 mL/min/1.73sq m Chronic Kidney Disease: <60 mL/min/1.73sq m Kidney failure: <15 mL/min/1.73sq m eGFR calculated using average adult body mass. Additional eGFR calculator available at: http://www.[employer].com/multiple_crcl_2012.htm Performed By: #### C DP, TROPI, BMP, CRP, SED #### [address] [id number] Code And Test Clerk: Campos Escobedo MD Anion gap [Moles/Vol] 12 mmol/L Normal 9-17 [facility] Comment on above: Performed By: #### C DP, TROPI, BMP, CRP, SED #### [facility] [address] Code And Test Clerk: Campos Escobedo MD Calcium [Mass/Vol] 8.7 mg/dL Normal 8.6-10.4 [facility] Comment on above: Performed By: #### C DP, TROPI, BMP, CRP, SED #### [address] [address] Code And Test Clerk: Campos Escobedo MD Chloride [Moles/Vol] 102 mmol/L Normal 98-107 [facility] Comment on above: Performed By: #### C DP, TROPI, BMP, CRP, SED #### [address] [address] Code And Test Clerk: Campos Escobedo MD CO2 [Moles/Vol] 23 mmol/L Normal 20-31 [facility] Comment on above: Performed By: #### C DP, TROPI, BMP, CRP, SED #### [address] [address] Code And Test Clerk: Campos Escobedo MD Creatinine [Mass/Vol] 0.54 mg/dL Normal 0.50-0.90 [facility] Comment on above: Performed By: #### C DP, TROPI, BMP, CRP, SED #### [address] [address] Code And Test Clerk: Campos Escobedo MD GFR, Amer >60 Normal >60 [facility] Comment on above: Performed By: #### C DP, TROPI, BMP, CRP, SED #### [address] [address] Code And Test Clerk: Campos Escobedo MD GFR,non Amer >60 Normal >60 [facility] Comment on above: Performed By: #### C DP, TROPI, BMP, CRP, SED #### [address] [id number] Code And Test Clerk: Campos Escobedo MD Glucose [Mass/Vol] 173 mg/dL High 70-99 [facility] Comment on above: Performed By: #### C DP, TROPI, BMP, CRP, SED #### [facility] [employer] [address] [place] [id number] Code And Test Clerk: Campos Escobedo MD Potassium [Moles/Vol] 4.5 mmol/L Normal 3.7-5.3 [facility] Comment on above: Performed By: #### C DP, TROPI, BMP, CRP, SED #### [facility] [employer] [address] [place] [address] Code And Test Clerk: Campos Escobedo MD Sodium [Moles/Vol] 137 mmol/L Normal 135-144 [facility] Comment on above: Performed By: #### C DP, TROPI, BMP, CRP, SED #### [facility] [employer] [address] [place] [id number] Code And Test Clerk: Campos Escobedo MD Urea nitrogen [Mass/Vol] 10 mg/dL Normal 8-23 [facility] Comment on above: Performed By: #### C DP, TROPI, BMP, CRP, SED #### [facility] [employer] [address] [place] [id number] Code And Test Clerk: Campos Escobedo MD BUN/CRE Ratio NOT REPORTED Normal 9-20 [facility] Comment on above: Performed By: #### C DP, TROPI, BMP, CRP, SED #### [facility] [employer] [address] [place] [phone] Code And Test Clerk: Campos Escobedo MD Staging: NOT REPORTED Normal [facility] Comment on above: Performed By: #### C DP, TROPI, BMP, CRP, SED #### [facility] [employer] [address] [place] [phone] Code And Test Clerk: Campos Escobedo MD CBC with Diffon 08-24-2019 Abs. Basophil 0.10 k/uL Normal 0.00-0.20 [facility] Comment on above: Performed By: #### C DP, TROPI, BMP, CRP, SED #### [address] [address] Code And Test Clerk: Campos Escobedo MD Abs.Imm.Granulocyte 0.12 k/uL Normal 0.00-0.30 [facility] Comment on above: Performed By: #### C DP, TROPI, BMP, CRP, SED #### [place] [address] Code And Test Clerk: Campos Escobedo MD Abs.Neutrophil (Seg) 4.17 k/uL Normal 1.50-8.10 [facility] Comment on above: Performed By: #### C DP, TROPI, BMP, CRP, SED #### [place] [address] Code And Test Clerk: Campos Escobedo MD Basophils/100 WBC (Bld) 1 % Normal 0-2 [facility] Comment on above: Performed By: #### C DP, TROPI, BMP, CRP, SED #### [place] [address] Code And Test Clerk: Campos Escobedo MD Eosinophils (Bld) [#/Vol] 0.29 10*3/uL Normal 0.00-0.44 [facility] Comment on above: Performed By: #### C DP, TROPI, BMP, CRP, SED #### [place] [address] Code And Test Clerk: Campos Escobedo MD Eosinophils/100 WBC (Bld) 4 % Normal 1-4 [facility] Comment on above: Performed By: #### C DP, TROPI, BMP, CRP, SED #### [place] [address] Code And Test Clerk: Campos Escobedo MD Erythrocyte distribution width (RBC) [Ratio] 12.8 % Normal 11.8-14.4 [facility] Comment on above: Performed By: #### C DP, TROPI, BMP, CRP, SED #### [place] [address] Code And Test Clerk: Campos Escobedo MD Hematocrit (Bld) [Volume fraction] 39.2 % Normal 36.3-47.1 [facility] Comment on above: Performed By: #### C DP, TROPI, BMP, CRP, SED #### [place] [address] Code And Test Clerk: Campos Escobedo MD Hemoglobin (Bld) [Mass/Vol] 11.9 g/dL Normal 11.9-15.1 [facility] Comment on above: Performed By: #### C DP, TROPI, BMP, CRP, SED #### [place] [address] Code And Test Clerk: Campos Escobedo MD Immature granulocytes (Bld) [#/Vol] 2 % High 0 [facility] Comment on above: Performed By: #### C DP, TROPI, BMP, CRP, SED #### [place] [address] Code And Test Clerk: Campos Escobedo MD Lymphocytes (Bld) [#/Vol] 2.68 10*3/uL Normal 1.10-3.70 [facility] [place] Comment on above: Performed By: #### C DP, TROPI, BMP, CRP, SED #### [place] [address] Code And Test Clerk: Campos Escobedo MD Lymphocytes/100 WBC (Bld) 34 % Normal 24-43 [facility] Comment on above: Performed By: #### C DP, TROPI, BMP, CRP, SED #### [place] [address] Code And Test Clerk: Campos Escobedo MD MCH (RBC) [Entitic mass] 29.8 pg Normal 25.2-33.5 [facility] Comment on above: Performed By: #### C DP, TROPI, BMP, CRP, SED #### [address] [address] Code And Test Clerk: Campos Escobedo MD MCHC (RBC) [Mass/Vol] 30.4 g/dL Normal 28.4-34.8 [facility] Comment on above: Performed By: #### C DP, TROPI, BMP, CRP, SED #### [place] [address] Code And Test Clerk: Campos Escobedo MD MCV (RBC) [Entitic vol] 98.0 fL Normal 82.6-102.9 [facility] [place] Comment on above: Performed By: #### C DP, TROPI, BMP, CRP, SED #### [place] [address] Code And Test Clerk: Campos Escobedo MD Monocytes (Bld) [#/Vol] 0.54 10*3/uL Normal 0.10-1.20 [facility] Comment on above: Performed By: #### C DP, TROPI, BMP, CRP, SED #### [place] [address] Code And Test Clerk: Campos Escobedo MD Monocytes/100 WBC (Bld) 7 % Normal 3-12 [facility] Comment on above: Performed By: #### C DP, TROPI, BMP, CRP, SED #### [address] [address] Code And Test Clerk: Campos Escobedo MD Neutrophil (Seg) 52 % Normal 36-65 [facility] Comment on above: Performed By: #### C DP, TROPI, BMP, CRP, SED #### [address] [address] Code And Test Clerk: Campos Escobedo MD NRBC Automated 0.0 per 100 WBC Normal 0.0 [facility] Comment on above: Performed By: #### C DP, TROPI, BMP, CRP, SED #### [address] [address] Code And Test Clerk: Campos Escobedo MD Platelet mean volume (Bld) [Entitic vol] 9.0 fL Normal 8.1-13.5 [facility] Comment on above: Performed By: #### C DP, TROPI, BMP, CRP, SED #### [address] [address] Code And Test Clerk: Campos Escobedo MD Platelets (Bld) [#/Vol] 664 10*3/uL High 138-453 [facility] Comment on above: Performed By: #### C DP, TROPI, BMP, CRP, SED #### [address] [address] Code And Test Clerk: Campos Escobedo MD RBC (Bld) [#/Vol] 4.00 10*6/uL Normal 3.95-5.11 [facility] Comment on above: Performed By: #### C DP, TROPI, BMP, CRP, SED #### [address] [address] Code And Test Clerk: Campos Escobedo MD WBC (Bld) [#/Vol] 7.9 10*3/uL Normal 3.5-11.3 [facility] Comment on above: Performed By: #### C DP, TROPI, BMP, CRP, SED #### [address] [address] Code And Test Clerk: Campos Escobedo MD Auto Diff Performed NOT REPORTED Normal [facility] Comment on above: Performed By: #### C DP, TROPI, BMP, CRP, SED #### [facility] [address] [place] [address] Code And Test Clerk: Campos Escobedo MD Platelets (Bld) [#/Vol] NOT REPORTED Normal [facility] Comment on above: Performed By: #### C DP, TROPI, BMP, CRP, SED #### [address] [address] Code And Test Clerk: Campos Escobedo MD RBC morphology finding Nom (Bld) NOT REPORTED Normal [facility] Comment on above: Performed By: #### C DP, TROPI, BMP, CRP, SED #### [facility] [employer] [address] [place] [address] Code And Test Clerk: Campos Escobedo MD WBC Morphology NOT REPORTED Normal [facility] Comment on above: Performed By: #### C DP, TROPI, BMP, CRP, SED #### [facility] [employer] [address] [place] [address] Code And Test Clerk: Campos Escobedo MD Calcium, Ionicon 08-24-2019 Calcium [Mass/Vol] 1.15 mmol/L Normal 1.13-1.33 [facility] [place] Comment on above: Performed By: #### C DP, TROPI, BMP, CRP, SED #### [address] [address] Code And Test Clerk: MD Dontae Moran 08-24-2019 Dontae garcia B1 1:80 Normal <1:10 [facility] Comment on above: Performed By: #### C DP, TROPI, BMP, CRP, SED #### [facility] [employer] [address] [place] [id number] Code And Test Clerk: MD Dontae Moran B2 1:160 Normal <1:10 [facility] Comment on above: Performed By: #### C DP, TROPI, BMP, CRP, SED #### [facility] [employer] [address] [place] [address] Code And Test Clerk: MD Dontae Moran. B3 1:320 Normal <1:10 [facility] Comment on above: Performed By: #### C DP, TROPI, BMP, CRP, SED #### [address] [address] Code And Test Clerk: MD Dontae Moran. B4 1:320 Normal <1:10 [facility] Comment on above: Performed By: #### C DP, TROPI, BMP, CRP, SED #### [address] [address] Code And Test Clerk: MD Dontae Moran. B5 1:20 Normal <1:10 [facility] Comment on above: Performed By: #### C DP, TROPI, BMP, CRP, SED #### [address] [address] Code And Test Clerk: MD Dontae Moran. B6 <1:10 Normal <1:10 [facility] Comment on above: Result Comment: (NOT E) INTERPRETIVE INFORMATION: Coxsackie B Virus Single positive antibody titers of greater than or equal to 1:80 may indicate past or current infection. Sero- conversion or an increase in titers between acute and convalescent sera of at least fourfold is considered strong evidence of current or recent infection. Performed by [facility], [address] [place] [id number] [email or web address], Clive Dowell MD, Lab. Director Performed By: #### C DP, TROPI, BMP, CRP, SED #### [address] [address] Code And Test Clerk: Campos Escobedo MD Magnesiumon 08-24-2019 Magnesium [Mass/Vol] 2.0 mg/dL Normal 1.6-2.6 [facility] Comment on above: Performed By: #### C DP, TROPI, BMP, CRP, SED #### [facility] [employer] [address] [place] [address] [phone] Code And Test Clerk: Campos Escobedo MD PTon 08-24-2019 INR Coag (PPP) [Relative time] 0.9 {INR} Normal [facility] Comment on above: Result Comment: Therapeutic Range: Moderate Anticoagulant Intensity: INR = 2.0-3.0 High Anticoagulant Intensity: INR = 2.5-3.5 Performed By: #### C DP, TROPI, BMP, CRP, SED #### [facility] [employer] [address] [place] [address] [phone] Code And Test Clerk: Campos Escobedo MD PT Coag (PPP) [Time] 9.9 s Normal 9.0-12.0 [facility] Comment on above: Performed By: #### C DP, TROPI, BMP, CRP, SED #### [facility] [address] [place] [phone] Code And Test Clerk: Campos Escobedo MD Phosphorus, Inorg.on 019 Phosphorus, Inorg. 3.3 mg/dL Normal 2.6-4.5 [facility] [place] Comment on above: Performed By: #### C DP, TROPI, BMP, CRP, SED #### [facility] [address] [place] [address] [phone] Code And Test Clerk: Campos Escobedo MD XR CHEST PORTABLEon 08-24-20 19 XR CHEST PORTABLE EXAMINATION: ONE XRAY VIEW OF THE CHEST 08/24/2019 8:28 am COMPARISON: August 23, 2019, August 21, 2019 HISTORY: ORDERING SYSTEM PROVIDED HISTORY: Pleural effusion s/p thoracentesis TECHNOLOGIST PROVIDED HISTORY: Pleural effusion s/p thoracentesis Reason for Exam: port upr FINDINGS: Interval reduction of small left effusion. Left basilar opacities remain. No new airspace disease identified. No pneumothorax. The cardiac and mediastinal contours appear unchanged. IMPRESSION: Interval reduction of left pleural effusion with small amount remaining. No pneumothorax identified. Interpreted by: Vladimir Acevedo MD Signed by: Vladimir Acevedo MD 08/24/19 Final result Normal [facility] APTTon 08-23-2019 aPTT Coag (Bld) [Time] 23.2 s Normal 20.5-30.5 [facility] Comment on above: Performed By: #### C DP, IOCAL, PT, PTT, BMP, MG, MAIKEL, TSHX #### [address] [id number] Code And Test Clerk: Campos Escobedo MD Basic Metabolic Profon 08-23 (cont.) Normal [facility] Comment on above: Result Comment: Aver age GFR for 60-69 years old: 85 mL/min/1.73sq m Chronic Kidney Disease: <60 mL/min/1.73sq m Kidney failure: <15 mL/min/1.73sq m eGFR calculated using average adult body mass. Additional eGFR calculator available at: http://www.[employer]/multiple_crcl_2012.htm Performed By: #### C DP, TROPI, BMP, CRP, SED #### [address] [address] Code And Test Clerk: Campos Escobedo MD Anion gap [Moles/Vol] 14 mmol/L Normal 9-17 [facility] Comment on above: Performed By: #### C DP, TROPI, BMP, CRP, SED #### [facility] [employer] [address] [place] [address] [phone] Code And Test Clerk: Campos Escobedo MD Calcium [Mass/Vol] 8.7 mg/dL Normal 8.6-10.4 [facility] Comment on above: Performed By: #### C DP, TROPI, BMP, CRP, SED #### [facility] [employer] [address] [place] [address] [phone] Code And Test Clerk: Campos Escobedo MD Chloride [Moles/Vol] 99 mmol/L Normal 98-107 [facility] Comment on above: Performed By: #### C DP, TROPI, BMP, CRP, SED #### [address] [address] Code And Test Clerk: Campos Escobedo MD CO2 [Moles/Vol] 22 mmol/L Normal 20-31 [facility] Comment on above: Performed By: #### C DP, TROPI, BMP, CRP, SED #### [address] [address] Code And Test Clerk: Campos Escobedo MD Creatinine [Mass/Vol] 0.55 mg/dL Normal 0.50-0.90 [facility] Comment on above: Performed By: #### C DP, TROPI, BMP, CRP, SED #### [facility] [employer] [address] [place] [phone] Code And Test Clerk: Campos Escobedo MD GFR, Amer >60 Normal >60 [facility] Comment on above: Performed By: #### C DP, TROPI, BMP, CRP, SED #### [address] [address] Code And Test Clerk: Campos Escobedo MD GFR,non Amer >60 Normal >60 [facility] Comment on above: Performed By: #### C DP, TROPI, BMP, CRP, SED #### [address] [address] Code And Test Clerk: Campos Escobedo MD Glucose [Mass/Vol] 141 mg/dL High 70-99 [facility] [place] Comment on above: Performed By: #### C DP, TROPI, BMP, CRP, SED #### [facility] [employer] [address] [place] [phone] Code And Test Clerk: Campos Escobedo MD Potassium [Moles/Vol] 3.9 mmol/L Normal 3.7-5.3 [facility] [place] Comment on above: Performed By: #### C DP, TROPI, BMP, CRP, SED #### [address] [address] Code And Test Clerk: Campos Escobedo MD Sodium [Moles/Vol] 135 mmol/L Normal 135-144 [facility] [place] Comment on above: Performed By: #### C DP, TROPI, BMP, CRP, SED #### [address] [address] Code And Test Clerk: Campos Escobedo MD Urea nitrogen [Mass/Vol] 18 mg/dL Normal 8-23 [facility] [place] Comment on above: Performed By: #### C DP, TROPI, BMP, CRP, SED #### [address] [address] Code And Test Clerk: Campos Escobedo MD BUN/CRE Ratio NOT REPORTED Normal 9- [facility] [place] Comment on above: Performed By: #### C DP, TROPI, BMP, CRP, SED #### [facility] [employer] [address] [place] [id number] Code And Test Clerk: Campos Escobedo MD Staging: NOT REPORTED Normal [facility] [place] Comment on above: Performed By: #### C DP, TROPI, BMP, CRP, SED #### [address] [address] Code And Test Clerk: Campos Escobedo MD C-Reactive Proteinon 019 CRP [Mass/Vol] 31.5 mg/L High 0.0-5.0 [facility] [place] Comment on above: Performed By: #### C DP, TROPI, BMP, CRP, SED #### [facility] [employer] [address] [place] [id number] Code And Test Clerk: Campos Escobedo MD CBC with Diffon 08-23-2019 Abs. Basophil 0.07 k/uL Normal 0.00-0.20 [facility] [place] Comment on above: Performed By: #### C DP, IOCAL, PT, PTT, BMP, MG, MAIKEL, TSHX #### [address] [address] Code And Test Clerk: Campos Escobedo MD Abs.Imm.Granulocyte 0.10 k/uL Normal 0.00-0.30 [facility] [place] Comment on above: Performed By: #### C DP, IOCAL, PT, PTT, BMP, MG, MAIKEL, TSHX #### [address] [address] Code And Test Clerk: Campos Escobedo MD Abs.Neutrophil (Seg) 7.10 k/uL Normal 1.50-8.10 [facility] Comment on above: Performed By: #### C DP, IOCAL, PT, PTT, BMP, MG, MAIKEL, TSHX #### [place] [address] Code And Test Clerk: Campos Escobedo MD Basophils/100 WBC (Bld) 1 % Normal 0-2 [facility] [place] Comment on above: Performed By: #### C DP, IOCAL, PT, PTT, BMP, MG, MAIKEL, TSHX #### [place] [address] Code And Test Clerk: Campos Escobedo MD Eosinophils (Bld) [#/Vol] 0.41 10*3/uL Normal 0.00-0.44 [facility] [place] Comment on above: Performed By: #### C DP, IOCAL, PT, PTT, BMP, MG, MAIKEL, TSHX #### [facility] [employer] [address] [place] [id number] Code And Test Clerk: Campos Escobedo MD Eosinophils/100 WBC (Bld) 4 % Normal 1-4 [facility] [place] Comment on above: Performed By: #### C DP, IOCAL, PT, PTT, BMP, MG, MAIKEL, TSHX #### [address] [address] Code And Test Clerk: Campos Escobedo MD Erythrocyte distribution width (RBC) [Ratio] 13.0 % Normal 11.8-14.4 [facility] [place] Comment on above: Performed By: #### C DP, IOCAL, PT, PTT, BMP, MG, MAIKEL, TSHX #### [address] [address] Code And Test Clerk: Campos Escobedo MD Hematocrit (Bld) [Volume fraction] 36.6 % Normal 36.3-47.1 [facility] [place] Comment on above: Performed By: #### C DP, IOCAL, PT, PTT, BMP, MG, MAIKEL, TSHX #### [place] [address] Code And Test Clerk: Campos Escobedo MD Hemoglobin (Bld) [Mass/Vol] 11.3 g/dL Low 11.9-15.1 [facility] [place] Comment on above: Performed By: #### C DP, IOCAL, PT, PTT, BMP, MG, MAIKEL, TSHX #### [place] [address] Code And Test Clerk: Campos Escobedo MD Immature granulocytes (Bld) [#/Vol] 1 % High 0 [facility] [place] Comment on above: Performed By: #### C DP, IOCAL, PT, PTT, BMP, MG, MAIKEL, TSHX #### [place] [address] Code And Test Clerk: Campos Escobedo MD Lymphocytes (Bld) [#/Vol] 2.58 10*3/uL Normal 1.10-3.70 [facility] [place] Comment on above: Performed By: #### C DP, IOCAL, PT, PTT, BMP, MG, MAIKEL, TSHX #### [address] [address] Code And Test Clerk: Campos Escobedo MD Lymphocytes/100 WBC (Bld) 24 % Normal 24-43 [facility] [place] Comment on above: Performed By: #### C DP, IOCAL, PT, PTT, BMP, MG, MAIKEL, TSHX #### [facility] [employer] [address] [place] [phone] Code And Test Clerk: Campos Escobedo MD MCH (RBC) [Entitic mass] 30.1 pg Normal 25.2-33.5 [facility] [place] Comment on above: Performed By: #### C DP, IOCAL, PT, PTT, BMP, MG, MAIKEL, TSHX #### [facility] [employer] [address] [place] [id number] Code And Test Clerk: Campos Escobedo MD MCHC (RBC) [Mass/Vol] 30.9 g/dL Normal 28.4-34.8 [facility] [place] Comment on above: Performed By: #### C DP, IOCAL, PT, PTT, BMP, MG, MAIKEL, TSHX #### [address] [address] Code And Test Clerk: Campos Escobedo MD MCV (RBC) [Entitic vol] 97.3 fL Normal 82.6-102.9 [facility] [place] Comment on above: Performed By: #### C DP, IOCAL, PT, PTT, BMP, MG, MAIKEL, TSHX #### [facility] [employer] [address] [place] [phone] Code And Test Clerk: Campos Escobedo MD Monocytes (Bld) [#/Vol] 0.47 10*3/uL Normal 0.10-1.20 [facility] [place] Comment on above: Performed By: #### C DP, IOCAL, PT, PTT, BMP, MG, MAIKEL, TSHX #### [facility] [employer] [address] [place] [phone] Code And Test Clerk: Campos Escobedo MD Monocytes/100 WBC (Bld) 4 % Normal 3-12 [facility] [place] Comment on above: Performed By: #### C DP, IOCAL, PT, PTT, BMP, MG, MAIKEL, TSHX #### [address] [address] Code And Test Clerk: Campos Escobedo MD Neutrophil (Seg) 66 % High 36-65 [facility] Comment on above: Performed By: #### C DP, IOCAL, PT, PTT, BMP, MG, MAIKEL, TSHX #### [address] [address] Code And Test Clerk: Campos Escobedo MD NRBC Automated 0.0 per 100 WBC Normal 0.0 [facility] [place] Comment on above: Performed By: #### C DP, IOCAL, PT, PTT, BMP, MG, MAIKEL, TSHX #### [address] [address] Code And Test Clerk: Campos Escobedo MD Platelet mean volume (Bld) [Entitic vol] 8.9 fL Normal 8.1-13.5 [facility] [place] Comment on above: Performed By: #### C DP, IOCAL, PT, PTT, BMP, MG, MAIKEL, TSHX #### [address] [address] Code And Test Clerk: Campos Escobedo MD Platelets (Bld) [#/Vol] 638 10*3/uL High 138-453 [facility] [place] Comment on above: Performed By: #### C DP, IOCAL, PT, PTT, BMP, MG, MAIKEL, TSHX #### [address] [address] Code And Test Clerk: Campos Escobedo MD RBC (Bld) [#/Vol] 3.76 10*6/uL Low 3.95-5.11 [facility] [place] Comment on above: Performed By: #### C DP, IOCAL, PT, PTT, BMP, MG, MAIKEL, TSHX #### [address] [address] Code And Test Clerk: Campos Escobedo MD WBC (Bld) [#/Vol] 10.7 10*3/uL Normal 3.5-11.3 [facility] [place] Comment on above: Performed By: #### C DP, IOCAL, PT, PTT, BMP, MG, MAIKEL, TSHX #### [address] [address] Code And Test Clerk: Campos Escobedo MD Auto Diff Performed NOT REPORTED Normal [facility] Comment on above: Performed By: #### C DP, IOCAL, PT, PTT, BMP, MG, MAIKEL, TSHX #### [address] [address] Code And Test Clerk: Campos Escobedo MD Platelets (Bld) [#/Vol] NOT REPORTED Normal [facility] [place] Comment on above: Performed By: #### C DP, IOCAL, PT, PTT, BMP, MG, MAIKEL, TSHX #### [address] [address] Code And Test Clerk: Campos Escobedo MD RBC morphology finding Nom (Bld) NOT REPORTED Normal [facility] [place] Comment on above: Performed By: #### C DP, IOCAL, PT, PTT, BMP, MG, AMIKEL, TSHX #### [address] [address] Code And Test Clerk: Campos Escobedo MD WBC Morphology NOT REPORTED Normal [facility] Comment on above: Performed By: #### C DP, IOCAL, PT, PTT, BMP, MG, MAIKEL, TSHX #### [address] [address] Code And Test Clerk: Campos Escobedo MD Calcium, Ionicon 08-23-2019 Calcium [Mass/Vol] 1.22 mmol/L Normal 1.13-1.33 [facility] [place] Comment on above: Performed By: #### C DP, IOCAL, PT, PTT, BMP, MG, MAIKEL, TSHX #### [address] [id number] Code And Test Clerk: Campos Escobedo MD Cult,Funguson 08-23-2019 Cult,Fungus Specimen Description .BODY FLUID Special Requests NOT REPORTED Culture DUPLICATE ORDER Report Status FINAL 08/23/2019 [facility] Comment on above: Performed By: #### C DP, TROPI, BMP, CRP, SED #### [address] [address] Code And Test Clerk: Campos Escobedo MD Cult,Mycobacteriaon 08-23-20 19 Cult,Mycobacteria Specimen Description .BODY FLUID Special Requests NOT REPORTED Direct Exam NOT REPORTED Culture DUPLICATE ORDER Report Status FINAL 08/23/2019 [facility] Comment on above: Performed By: #### C DP, TROPI, BMP, CRP, SED #### [address] [address] Code And Test Clerk: Campos Escobedo MD Fluid Cell Count and Diffon 08-23-2019 Lymphocytes/100 WBC (Bld) 49 % Normal [facility] [place] Comment on above: Result Comment: The reference range and other method performance specifications have not been established for this body fluid. The test result must be integrated into the clinical context for interpretation. Performed By: #### C DP, TROPI, BMP, CRP, SED #### [address] [address] Code And Test Clerk: Campos Escobedo MD Neutrophils/100 WBC (Bld) 4 % Normal [facility] [place] Comment on above: Result Comment: The reference range and other method performance specifications have not been established for this body fluid. The test result must be integrated into the clinical context for interpretation. Performed By: #### C DP, TROPI, BMP, CRP, SED #### [address] [address] Code And Test Clerk: Campos Escobedo MD RBC (Bld) [#/Vol] 73420 /mm3 Normal [facility] Comment on above: Result Comment: The reference range and other method performance specifications have not been established for this body fluid. The test result must be integrated into the clinical context for interpretation. Performed By: #### C DP, TROPI, BMP, CRP, SED #### [facility] [address] [place] [address] Code And Test Clerk: Campos Escobedo MD WBC (Bld) [#/Vol] 5151 /mm3 Normal [facility] Comment on above: Result Comment: The reference range and other method performance specifications have not been established for this body fluid. The test result must be integrated into the clinical context for interpretation. Performed By: #### C DP, TROPI, BMP, CRP, SED #### [address] [address] Code And Test Clerk: Campos Escobedo MD Appearance (U) NOT REPORTED Normal [facility] Comment on above: Performed By: #### C DP, TROPI, BMP, CRP, SED #### [address] [address] Code And Test Clerk: Campos Escobedo MD Basophils/100 WBC (Bld) NOT REPORTED Normal 0 [facility] [place] Comment on above: Performed By: #### C DP, TROPI, BMP, CRP, SED #### [facility] [address] [place] [address] Code And Test Clerk: Campos Escobedo MD Color (U) NOT REPORTED Normal [facility] [place] Comment on above: Performed By: #### C DP, TROPI, BMP, CRP, SED #### [facility] [address] [place] [address] Code And Test Clerk: Campos Escobedo MD Comment NOT REPORTED Normal [facility] [place] Comment on above: Performed By: #### C DP, TROPI, BMP, CRP, SED #### [facility] [address] [place] [address] Code And Test Clerk: Campos Escobedo MD Eosinophils (Bld) [#/Vol] NOT REPORTED Normal 0 [facility] [place] Comment on above: Performed By: #### C DP, TROPI, BMP, CRP, SED #### [address] [address] Code And Test Clerk: Campos Escobedo MD [place]/Macrophage NOT REPORTED Normal [facility] Comment on above: Performed By: #### C DP, TROPI, BMP, CRP, SED #### [address] [address] Code And Test Clerk: Campos Escobedo MD Type of Specimen .THORACENTESIS FLUID Normal [facility] [place] Comment on above: Performed By: #### C DP, TROPI, BMP, CRP, SED #### [facility] [employer] [address] [place] [address] Code And Test Clerk: Campos Escobedo MD Glucose,Fluidon 08-23-2019 Glucose [Mass/Vol] 160 mg/dL Normal [facility] [place] Comment on above: Result Comment: Ther e are no normals for body fluid samples. Performed By: #### C DP, TROPI, BMP, CRP, SED #### [address] [id number] Code And Test Clerk: Campos Escobedo MD Gram Stainon 08-23-2019 Microscopic observation Gram stain Nom (Unsp spec) Specimen Description .THORACENTESIS FLUID Special Requests NOT REPORTED Direct Exam DUPLICATE ORDER Report Status FINAL 08/23/2019 Normal [facility] [place] Comment on above: Performed By: #### C DP, TROPI, BMP, CRP, SED #### [address] [address] Code And Test Clerk: Campos Escobedo MD [facility] (NOTE) [phone] [facility] [employer] ANATOMIC PATHOLOGY [address] [place] [phone] NONGYNECOLOGICAL CYTOPATHOLOGY CONSULTATION Patient Name: TANYA BLAKE Med Rec: [id number] Path Number: [id number] Collected: 08/23/2019 Received: 08/26/2019 Reported: 08/28/2019 08:37 -- Diagnosis -- THORACENTESIS FLUID LEFT: NEGATIVE FOR MALIGNANCY. REACTIVE MESOTHELIAL CELLS. Johnson Hurtado Electronically Signed Out rdd/08/28/2019 Clinical Information No information given. Source of Specimen 1: THORACENTESIS FLUID LEFT Gross Description LEFT THORACENTESIS 100.0 ml. red cloudy fluid. MICROSCOPIC DESCRIPTION The smears and cell block show many mesothelial cells with a subpopulation of atypical large individual cells. These cells are further characterise utilizing immunostains with appropriately reactive controls. Atypical cells show mesothelial phenotype and are positive for CK 7, CK 5/6, calretinin and are negative for CK 20, TTF-1, and CEA. Mucin stain with an appropriate control is negative as well. Morphology and stain profile indicate reactive mesothelial cells. Note: The case is reviewed in intradepartmental pathology consultation with consensus (DEONTE, LHM, SLS, JOSUE). Normal [facility] [place] Comment on above: Performed By: #### C DP, TROPI, BMP, CRP, SED #### [facility] [address] [place] [address] [phone] Code And Test Clerk: Campos Escobedo MD Lactate Dehydrog, Flon 08-23 LD - Fluid 316 U/L Normal [facility] [place] Comment on above: Result Comment: Ther e are no normals for body fluid samples. Performed By: #### C DP, TROPI, BMP, CRP, SED #### [facility] [address] [place] [address] [id number] Code And Test Clerk: Campos Escobedo MD Type of Specimen .THORACENTESIS FLUID Normal [facility] [place] Comment on above: Performed By: #### C DP, TROPI, BMP, CRP, SED #### [facility] [address] [place] [address] Code And Test Clerk: Campos Escobedo MD Lactate Dehydrogenaseon LDH [Catalytic activity/Vol] 195 U/L Normal 135-214 [facility] [place] Comment on above: Performed By: #### C DP, TROPI, BMP, CRP, SED #### [facility] [employer] [address] [place] [address] Code And Test Clerk: Campos Escobedo MD Liver Profileon 08-23-2019 Albumin [Mass/Vol] 3.3 g/dL Low 3.5-5.2 [facility] [place] Comment on above: Performed By: #### C DP, TROPI, BMP, CRP, SED #### [facility] [employer] [address] [place] [address] Code And Test Clerk: Campos Escobedo MD Albumin/Globulin [Mass ratio] 1.0 {ratio} Normal 1.0-2.5 [facility] [place] Comment on above: Performed By: #### C DP, TROPI, BMP, CRP, SED #### [address] [address] Code And Test Clerk: Campos Escobedo MD Alkaline Phos 94 U/L Normal 35-104 [facility] [place] Comment on above: Performed By: #### C DP, TROPI, BMP, CRP, SED #### [address] [address] Code And Test Clerk: Campos Escobedo MD ALT [Catalytic activity/Vol] 11 U/L Normal 5-33 [facility] [place] Comment on above: Performed By: #### C DP, TROPI, BMP, CRP, SED #### [facility] [employer] [address] [place] [address] Code And Test Clerk: Campos Escobedo MD AST [Catalytic activity/Vol] 8 U/L Normal <32 [facility] [place] Comment on above: Performed By: #### C DP, TROPI, BMP, CRP, SED #### [facility] [employer] [address] [place] [address] Code And Test Clerk: Campos Escobedo MD Bilirubin Ql (U) 0.15 mg/dL Low 0.3-1.2 [facility] Comment on above: Performed By: #### C DP, TROPI, BMP, CRP, SED #### [facility] [employer] [address] [place] [address] Code And Test Clerk: Campos Escobedo MD Bilirubin, Indirect CANNOT BE CALCULATED Normal 0.00-1 .00 [facility] [place] Comment on above: Performed By: #### C DP, TROPI, BMP, CRP, SED #### [facility] [employer] [address] [place] [address] Code And Test Clerk: Campos Escobedo MD Bilirubin.direct [Mass/Vol] mg/dL Normal <0.31 [facility] [place] Comment on above: Performed By: #### C DP, TROPI, BMP, CRP, SED #### [facility] [employer] [address] [place] [address] Code And Test Clerk: Campos Escobedo MD Protein [Mass/Vol] 6.7 g/dL Normal 6.4-8.3 [facility] [place] Comment on above: Performed By: #### C DP, TROPI, BMP, CRP, SED #### [facility] [employer] [address] [place] [address] Code And Test Clerk: Campos Escobedo MD Globulin (S) [Mass/Vol] NOT REPORTED Normal 1.5-3.8 [facility] [place] Comment on above: Performed By: #### C DP, TROPI, BMP, CRP, SED #### [facility] [employer] [address] [place] [address] Code And Test Clerk: Campos Escobedo MD Magnesiumon 08-23-2019 Magnesium [Mass/Vol] 1.9 mg/dL Normal 1.6-2.6 [facility] Comment on above: Performed By: #### C DP, TROPI, BMP, CRP, SED #### [facility] [employer] [address] [place] [address] Code And Test Clerk: Campos Escobedo MD Non-Raw Material Planner Cytologyon 9 Case No: NOT REPORTED Normal [facility] [place] Comment on above: Performed By: #### C DP, TROPI, BMP, CRP, SED #### [address] [address] Code And Test Clerk: Campos Escobedo MD Specimen Description .THORACENTESIS FLUID Normal [facility] [place] Comment on above: Performed By: #### C DP, TROPI, BMP, CRP, SED #### [address] [address] Code And Test Clerk: Campos Escobedo MD PH, Quant, Fluidon 9 pH,Quant-Fluid 7.0 Normal [facility] [place] Comment on above: Result Comment: Ther e are no normals for body fluid samples. Performed By: #### C DP, TROPI, BMP, CRP, SED #### [place] [address] Code And Test Clerk: Campos Escobedo MD PTon 08-23-2019 INR Coag (PPP) [Relative time] 0.9 {INR} Normal [facility] [place] Comment on above: Result Comment: Therapeutic Range: Moderate Anticoagulant Intensity: INR = 2.0-3.0 High Anticoagulant Intensity: INR = 2.5-3.5 Performed By: #### C DP, IOCAL, PT, PTT, BMP, MG, MAIKEL, TSHX #### [address] [address] Code And Test Clerk: Campos Escobedo MD PT Coag (PPP) [Time] 10.1 s Normal 9.0-12.0 [facility] Comment on above: Performed By: #### C DP, IOCAL, PT, PTT, BMP, MG, MAIKEL, TSHX #### [address] [address] Code And Test Clerk: Campos Escobedo MD Phosphorus, Inorg.on 019 Phosphorus, Inorg. 3.6 mg/dL Normal 2.6-4.5 [facility] [place] Comment on above: Performed By: #### C DP, TROPI, BMP, CRP, SED #### [facility] [address] [place] [address] Code And Test Clerk: Campos Escobedo MD Protein,Tot,Fluidon 08-23-20 Tot Prot. Conc. 4.0 g/dL Normal [facility] [place] Comment on above: Result Comment: Ther e are no normals for body fluid samples. Performed By: #### C DP, TROPI, BMP, CRP, SED #### [facility] [address] [place] [address] Code And Test Clerk: Campos Escobedo MD THORACENTESISon 9 THORACENTESIS PROCEDURE: ULTRASOUNDGUIDED left THORACENTESIS 08/23/2019 HISTORY: ORDERING SYSTEM PROVIDED HISTORY: Left pleural effusion for thoracentesis ultrasound guided TECHNOLOGIST PROVIDED HISTORY: Left pleural effusion for thoracentesis ultrasound guided TECHNIQUE: Informed consent was obtained after a detailed explanation of the procedure including risks, benefits, and alternatives. [place] protocol was performed. The left chest was prepped and draped in sterile fashion and local anesthesia was achieved with lidocaine. An 5 Hungarian needle sheath was advanced under ultrasound guidance into pleural effusion and thoracentesis was performed. The patient tolerated the procedure well. Estimated blood loss: Minimal FINDINGS: A total of 200 mL was removed. Ayad colored fluid IMPRESSION: Successful ultrasound guided thoracentesis. Interpreted by: Gordo Brar MD Signed by: Gordo Brar MD 08/23/19 Final result Normal [facility] [place] XR CHEST (2 VW)on 08-23-2019 XR CHEST (2 VW) EXAMINATION: TWO XRAY VIEWS OF THE CHEST 08/23/2019 9:25 am COMPARISON: Chest radiograph performed 08/21/2019. HISTORY: ORDERING SYSTEM PROVIDED HISTORY: pleural effusion TECHNOLOGIST PROVIDED HISTORY: pleural effusion Reason for Exam: pleural effusion FINDINGS: There are bibasilar effusions. There is no pneumothorax. The mediastinal structures are stable. The upper abdomen is unremarkable. The extrathoracic soft tissues are unremarkable. IMPRESSION: Similar bibasilar effusions. Interpreted by: Renard Salcedo MD Signed by: Renard Salcedo MD 08/23/19 Final result Normal [facility] [place] APTTon 08-22-2019 aPTT Coag (Bld) [Time] 24.7 s Normal 20.5-30.5 [facility] [place] Comment on above: Performed By: #### C DP, IOCAL, PT, PTT, BMP, MG, MAIKEL, TSHX #### [address] [id number] Code And Test Clerk: Campos Escobedo MD Basic Metab w/rfx MGon 08-22 (cont.) Normal [facility] [place] Comment on above: Result Comment: Aver age GFR for 60-69 years old: 85 mL/min/1.73sq m Chronic Kidney Disease: <60 mL/min/1.73sq m Kidney failure: <15 mL/min/1.73sq m eGFR calculated using average adult body mass. Additional eGFR calculator available at: http://www.[employer]/multiple_crcl_2012.htm Performed By: #### C DP, IOCAL, PT, PTT, BMP, MG, MAIKEL, TSHX #### [address] [phone] Code And Test Clerk: Campos Escobedo MD Anion gap [Moles/Vol] 12 mmol/L Normal 9-17 [facility] [place] Comment on above: Performed By: #### C DP, IOCAL, PT, PTT, BMP, MG, MAIKEL, TSHX #### [facility] [employer] [address] [place] [address] [phone] Code And Test Clerk: Campos Escobedo MD Calcium [Mass/Vol] 8.9 mg/dL Normal 8.6-10.4 [facility] [place] Comment on above: Performed By: #### C DP, IOCAL, PT, PTT, BMP, MG, MAIKEL, TSHX #### [facility] [employer] [address] [place] [address] [phone] Code And Test Clerk: Campos Escobedo MD Chloride [Moles/Vol] 101 mmol/L Normal 98-107 [facility] Comment on above: Performed By: #### C DP, IOCAL, PT, PTT, BMP, MG, MAIKEL, TSHX #### [address] [address] Code And Test Clerk: Campos Escobedo MD CO2 [Moles/Vol] 27 mmol/L Normal 20-31 [facility] [place] Comment on above: Performed By: #### C DP, IOCAL, PT, PTT, BMP, MG, MAIKEL, TSHX #### [address] [address] Code And Test Clerk: Campos Escobedo MD Creatinine [Mass/Vol] 0.60 mg/dL Normal 0.50-0.90 [facility] [place] Comment on above: Performed By: #### C DP, IOCAL, PT, PTT, BMP, MG, MAIKEL, TSHX #### [address] [address] Code And Test Clerk: Campos Escobedo MD GFR, Amer >60 Normal >60 [facility] Comment on above: Performed By: #### C DP, IOCAL, PT, PTT, BMP, MG, MAIKEL, TSHX #### [address] [address] Code And Test Clerk: Campos Escobedo MD GFR,non Amer >60 Normal >60 [facility] [place] [facility] Comment on above: Performed By: #### C DP, IOCAL, PT, PTT, BMP, MG, MAIKEL, TSHX #### [address] [address] Code And Test Clerk: Campos Escobedo MD Glucose [Mass/Vol] 204 mg/dL High 70-99 [facility] [place] Comment on above: Performed By: #### C DP, IOCAL, PT, PTT, BMP, MG, MAIKEL, TSHX #### [address] [address] Code And Test Clerk: Campos Escobedo MD Potassium [Moles/Vol] 4.8 mmol/L Normal 3.7-5.3 [facility] [place] Comment on above: Performed By: #### C DP, IOCAL, PT, PTT, BMP, MG, MAIKEL, TSHX #### [address] [id number] Code And Test Clerk: Campos Escobedo MD Sodium [Moles/Vol] 140 mmol/L Normal 135-144 [facility] [place] Comment on above: Performed By: #### C DP, IOCAL, PT, PTT, BMP, MG, MAIKEL, TSHX #### [place] [address] Code And Test Clerk: Campos Escobedo MD Urea nitrogen [Mass/Vol] 17 mg/dL Normal 8-23 [facility] [place] Comment on above: Performed By: #### C DP, IOCAL, PT, PTT, BMP, MG, MAIKEL, TSHX #### [place] [address] Code And Test Clerk: Campos Escobedo MD BUN/CRE Ratio NOT REPORTED Normal 9-20 [facility] [place] Comment on above: Performed By: #### C DP, IOCAL, PT, PTT, BMP, MG, MAIKEL, TSHX #### [address] [address] Code And Test Clerk: Campos Escobedo MD Staging: NOT REPORTED Normal [facility] [place] Comment on above: Performed By: #### C DP, IOCAL, PT, PTT, BMP, MG, MAIKEL, TSHX #### [address] [address] Code And Test Clerk: Campos Escobedo MD CBC with Diffon 08-22-2019 Abs. Basophil 0.05 k/uL Normal 0.00-0.20 [facility] [place] Comment on above: Performed By: #### C DP, IOCAL, PT, PTT, BMP, MG, MAIKEL, TSHX #### [address] [address] Code And Test Clerk: Campos Escobedo MD Abs.Imm.Granulocyte 0.12 k/uL Normal 0.00-0.30 [facility] [place] Comment on above: Performed By: #### C DP, IOCAL, PT, PTT, BMP, MG, MAIKEL, TSHX #### [place] [address] Code And Test Clerk: Campos Escobedo MD Abs.Neutrophil (Seg) 11.05 k/uL High 1.50-8.10 [facility] Comment on above: Performed By: #### C DP, IOCAL, PT, PTT, BMP, MG, MAIKEL, TSHX #### [address] [address] Code And Test Clerk: Campos Escobedo MD Basophils/100 WBC (Bld) 0 % Normal 0-2 [facility] [place] Comment on above: Performed By: #### C DP, IOCAL, PT, PTT, BMP, MG, MAIKEL, TSHX #### [place] [address] Code And Test Clerk: Campos Escobedo MD Eosinophils (Bld) [#/Vol] 0.20 10*3/uL Normal 0.00-0.44 [facility] [place] Comment on above: Performed By: #### C DP, IOCAL, PT, PTT, BMP, MG, MAIKEL, TSHX #### [address] [address] Code And Test Clerk: Campos Escobedo MD Eosinophils/100 WBC (Bld) 1 % Normal 1-4 [facility] [place] Comment on above: Performed By: #### C DP, IOCAL, PT, PTT, BMP, MG, MAIKEL, TSHX #### [address] [address] Code And Test Clerk: Campos Escobedo MD Erythrocyte distribution width (RBC) [Ratio] 12.7 % Normal 11.8-14.4 [facility] [place] Comment on above: Performed By: #### C DP, IOCAL, PT, PTT, BMP, MG, MAIKEL, TSHX #### [place] [address] Code And Test Clerk: Campos Escobedo MD Hematocrit (Bld) [Volume fraction] 34.7 % Low 36.3-47.1 [facility] [place] Comment on above: Performed By: #### C DP, IOCAL, PT, PTT, BMP, MG, MAIKEL, TSHX #### [place] [address] Code And Test Clerk: Campos Escobedo MD Hemoglobin (Bld) [Mass/Vol] 10.8 g/dL Low 11.9-15.1 [facility] [place] Comment on above: Performed By: #### C DP, IOCAL, PT, PTT, BMP, MG, MAIKEL, TSHX #### [place] [address] Code And Test Clerk: Campos Escobedo MD Immature granulocytes (Bld) [#/Vol] 1 % High 0 [facility] [place] Comment on above: Performed By: #### C DP, IOCAL, PT, PTT, BMP, MG, MAIKEL, TSHX #### [place] [address] Code And Test Clerk: Campos Escobedo MD Lymphocytes (Bld) [#/Vol] 1.79 10*3/uL Normal 1.10-3.70 [facility] [place] Comment on above: Performed By: #### C DP, IOCAL, PT, PTT, BMP, MG, MAIKEL, TSHX #### [place] [address] Code And Test Clerk: Campos Escobedo MD Lymphocytes/100 WBC (Bld) 13 % Low 24-43 [facility] [place] Comment on above: Performed By: #### C DP, IOCAL, PT, PTT, BMP, MG, MAIKEL, TSHX #### [address] [address] Code And Test Clerk: Campos Escobedo MD MCH (RBC) [Entitic mass] 29.9 pg Normal 25.2-33.5 [facility] [place] Comment on above: Performed By: #### C DP, IOCAL, PT, PTT, BMP, MG, MAIKEL, TSHX #### [address] [address] Code And Test Clerk: Campos Escobedo MD MCHC (RBC) [Mass/Vol] 31.1 g/dL Normal 28.4-34.8 [facility] [place] Comment on above: Performed By: #### C DP, IOCAL, PT, PTT, BMP, MG, MAIKEL, TSHX #### [address] [address] Code And Test Clerk: Campos Escobedo MD MCV (RBC) [Entitic vol] 96.1 fL Normal 82.6-102.9 [facility] [place] Comment on above: Performed By: #### C DP, IOCAL, PT, PTT, BMP, MG, MAIKEL, TSHX #### [address] [address] Code And Test Clerk: Campos Escobedo MD Monocytes (Bld) [#/Vol] 0.71 10*3/uL Normal 0.10-1.20 [facility] [place] Comment on above: Performed By: #### C DP, IOCAL, PT, PTT, BMP, MG, MAIKEL, TSHX #### [address] [address] Code And Test Clerk: Campos Escobedo MD Monocytes/100 WBC (Bld) 5 % Normal 3-12 [facility] [place] Comment on above: Performed By: #### C DP, IOCAL, PT, PTT, BMP, MG, MAIKEL, TSHX #### [address] [address] Code And Test Clerk: Campos Escobedo MD Neutrophil (Seg) 79 % High 36-65 [facility] Comment on above: Performed By: #### C DP, IOCAL, PT, PTT, BMP, MG, MAIKEL, TSHX #### [address] [address] Code And Test Clerk: Campos Escobedo MD NRBC Automated 0.0 per 100 WBC Normal 0.0 [facility] Comment on above: Performed By: #### C DP, IOCAL, PT, PTT, BMP, MG, MAIKEL, TSHX #### [address] [address] Code And Test Clerk: Campos Escobedo MD Platelet mean volume (Bld) [Entitic vol] 9.1 fL Normal 8.1-13.5 [facility] [place] Comment on above: Performed By: #### C DP, IOCAL, PT, PTT, BMP, MG, MAIKEL, TSHX #### [address] [address] Code And Test Clerk: Campos Escobedo MD Platelets (Bld) [#/Vol] 625 10*3/uL High 138-453 [facility] Comment on above: Performed By: #### C DP, IOCAL, PT, PTT, BMP, MG, MAIKEL, TSHX #### [address] [address] Code And Test Clerk: Campos Escobedo MD RBC (Bld) [#/Vol] 3.61 10*6/uL Low 3.95-5.11 [facility] Comment on above: Performed By: #### C DP, IOCAL, PT, PTT, BMP, MG, MAIKEL, TSHX #### [address] [address] Code And Test Clerk: Campos Escobedo MD WBC (Bld) [#/Vol] 13.9 10*3/uL High 3.5-11.3 [facility] Comment on above: Performed By: #### C DP, IOCAL, PT, PTT, BMP, MG, MAIKEL, TSHX #### [address] [address] Code And Test Clerk: Campos Escobedo MD Auto Diff Performed NOT REPORTED Normal [facility] Comment on above: Performed By: #### C DP, IOCAL, PT, PTT, BMP, MG, MAIKEL, TSHX #### [address] [address] Code And Test Clerk: Campos Escobedo MD Platelets (Bld) [#/Vol] NOT REPORTED Normal [facility] Comment on above: Performed By: #### C DP, IOCAL, PT, PTT, BMP, MG, MAIKEL, TSHX #### [address] [address] Code And Test Clerk: Campos Escobedo MD RBC morphology finding Nom (Bld) NOT REPORTED Normal [facility] Comment on above: Performed By: #### C DP, IOCAL, PT, PTT, BMP, MG, MAIKEL, TSHX #### [address] [address] Code And Test Clerk: Campos Escobedo MD WBC Morphology NOT REPORTED Normal [facility] Comment on above: Performed By: #### C DP, IOCAL, PT, PTT, BMP, MG, MAIKEL, TSHX #### [address] [address] Code And Test Clerk: Campos Escobedo MD Calcium, Ionicon 08-22-2019 Calcium [Mass/Vol] 1.18 mmol/L Normal 1.13-1.33 [facility] [place] Comment on above: Performed By: #### C DP, IOCAL, PT, PTT, BMP, MG, MAIKEL, TSHX #### [address] [id number] Code And Test Clerk: Campos Escobedo MD K (Potassium)on 08-22-2019 Potassium [Moles/Vol] 4.3 mmol/L Normal 3.7-5.3 [facility] Comment on above: Performed By: #### C DP, IOCAL, PT, PTT, BMP, MG, MAIKEL, TSHX #### [address] [id number] Code And Test Clerk: Campos Escobedo MD Magnesiumon 08-22-2019 Magnesium [Mass/Vol] 2.0 mg/dL Normal 1.6-2.6 [facility] [place] [facility] Comment on above: Performed By: #### C DP, IOCAL, PT, PTT, BMP, MG, MAIKEL, TSHX #### [facility] [employer] [address] [place] [address] [id number] Code And Test Clerk: Campos Escobedo MD Magnesium [Mass/Vol] 2.2 mg/dL Normal 1.6-2.6 [facility] Comment on above: Performed By: #### C DP, IOCAL, PT, PTT, BMP, MG, MAIKEL, TSHX #### [facility] [employer] [address] [place], [place] [address] Code And Test Clerk: Campos Escobedo MD PTon 08-22-2019 INR Coag (PPP) [Relative time] 0.9 {INR} Normal [facility] Comment on above: Result Comment: Therapeutic Range: Moderate Anticoagulant Intensity: INR = 2.0-3.0 High Anticoagulant Intensity: INR = 2.5-3.5 Performed By: #### C DP, IOCAL, PT, PTT, BMP, MG, MAIKEL, TSHX #### [facility] [employer] [address] [place], [place] [address] Code And Test Clerk: Campos Escobedo MD PT Coag (PPP) [Time] 9.6 s Normal 9.0-12.0 [facility] [place] [facility] Comment on above: Performed By: #### C DP, IOCAL, PT, PTT, BMP, MG, MAIKEL, TSHX #### [address] [id number] Code And Test Clerk: Campos Escobedo MD Phosphorus, Inorg.on 019 Phosphorus, Inorg. 3.7 mg/dL Normal 2.6-4.5 [facility] Comment on above: Performed By: #### C DP, IOCAL, PT, PTT, BMP, MG, MAIKEL, TSHX #### [address] [id number] Code And Test Clerk: Campos Escobedo MD APTTon 08-21-2019 aPTT Coag (Bld) [Time] 26.4 s Normal 20.5-30.5 [facility] Comment on above: Performed By: #### C DP, IOCAL, PT, PTT, BMP, MG, MAIKEL, TSHX #### [address] [id number] Code And Test Clerk: Campos Escobedo MD Basic Metabolic Profon 08-21 (cont.) Normal [facility] Comment on above: Result Comment: Aver age GFR for 60-69 years old: 85 mL/min/1.73sq m Chronic Kidney Disease: <60 mL/min/1.73sq m Kidney failure: <15 mL/min/1.73sq m eGFR calculated using average adult body mass. Additional eGFR calculator available at: http://www.[employer].Youtuo/multiple_crcl_2012.htm Performed By: #### C DP, IOCAL, PT, PTT, BMP, MG, MAIKEL, TSHX #### [address] [id number] Code And Test Clerk: Campos Escobedo MD Anion gap [Moles/Vol] 14 mmol/L Normal - [facility] Comment on above: Performed By: #### C DP, IOCAL, PT, PTT, BMP, MG, MAIKEL, TSHX #### [address] [id number] Code And Test Clerk: Campos Escobedo MD Calcium [Mass/Vol] 8.5 mg/dL Low 8.6-10.4 [facility] Comment on above: Performed By: #### C DP, IOCAL, PT, PTT, BMP, MG, MAIKEL, TSHX #### [address] [address] Code And Test Clerk: Campos Escobedo MD Chloride [Moles/Vol] 100 mmol/L Normal 98-107 [facility] [place] [facility] Comment on above: Performed By: #### C DP, IOCAL, PT, PTT, BMP, MG, MAIKEL, TSHX #### [place] [address] Code And Test Clerk: Campos Escobedo MD CO2 [Moles/Vol] 24 mmol/L Normal 20-31 [facility] Comment on above: Performed By: #### C DP, IOCAL, PT, PTT, BMP, MG, MAIKEL, TSHX #### [place] [address] Code And Test Clerk: Campos Escobedo MD Creatinine [Mass/Vol] 0.44 mg/dL Low 0.50-0.90 [facility] Comment on above: Performed By: #### C DP, IOCAL, PT, PTT, BMP, MG, MAIKEL, TSHX #### [place] [address] Code And Test Clerk: Campos Escobedo MD GFR, Amer >60 Normal >60 [facility] Comment on above: Performed By: #### C DP, IOCAL, PT, PTT, BMP, MG, MAIKEL, TSHX #### [address] [address] Code And Test Clerk: Campos Escobedo MD GFR,non Amer >60 Normal >60 [facility] [place] [facility] Comment on above: Performed By: #### C DP, IOCAL, PT, PTT, BMP, MG, MAIKEL, TSHX #### [address] [address] Code And Test Clerk: Campos Escobedo MD Glucose [Mass/Vol] 205 mg/dL High 70-99 [facility] Comment on above: Performed By: #### C DP, IOCAL, PT, PTT, BMP, MG, MAIKEL, TSHX #### [address] [address] Code And Test Clerk: Campos Escobedo MD Potassium [Moles/Vol] 4.0 mmol/L Normal 3.7-5.3 [facility] Comment on above: Performed By: #### C DP, IOCAL, PT, PTT, BMP, MG, MAIKEL, TSHX #### [address] [address] Code And Test Clerk: Campos Escobedo MD Sodium [Moles/Vol] 138 mmol/L Normal 135-144 [facility] Comment on above: Performed By: #### C DP, IOCAL, PT, PTT, BMP, MG, MAIKEL, TSHX #### [address] [address] Code And Test Clerk: Campos Escobedo MD Urea nitrogen [Mass/Vol] 12 mg/dL Normal 8-23 [facility] Comment on above: Performed By: #### C DP, IOCAL, PT, PTT, BMP, MG, MAIKEL, TSHX #### [address] [address] Code And Test Clerk: Campos Escobedo MD BUN/CRE Ratio NOT REPORTED Normal 9-20 [facility] Comment on above: Performed By: #### C DP, IOCAL, PT, PTT, BMP, MG, MAIKEL, TSHX #### [address] [address] Code And Test Clerk: Campos Escobedo MD Staging: NOT REPORTED Normal [facility] Comment on above: Performed By: #### C DP, IOCAL, PT, PTT, BMP, MG, MAIKEL, TSHX #### [place] [address] Code And Test Clerk: Campos Escobedo MD CBC with Diffon 08-21-2019 Abs. Basophil 0.09 k/uL Normal 0.00-0.20 [facility] Comment on above: Performed By: #### C DP, IOCAL, PT, PTT, BMP, MG, MAIKEL, TSHX #### [place] [address] Code And Test Clerk: Campos Escobedo MD Abs.Imm.Granulocyte 0.16 k/uL Normal 0.00-0.30 [facility] Comment on above: Performed By: #### C DP, IOCAL, PT, PTT, BMP, MG, MAIKEL, TSHX #### [place] [address] Code And Test Clerk: Campos Escobedo MD Abs.Neutrophil (Seg) 5.82 k/uL Normal 1.50-8.10 [facility] [place] [facility] Comment on above: Performed By: #### C DP, IOCAL, PT, PTT, BMP, MG, MAIKEL, TSHX #### [place] [address] Code And Test Clerk: Campos Escobedo MD Basophils/100 WBC (Bld) 1 % Normal 0-2 [facility] Comment on above: Performed By: #### C DP, IOCAL, PT, PTT, BMP, MG, MAIKEL, TSHX #### [place] [address] Code And Test Clerk: Campos Escobedo MD Eosinophils (Bld) [#/Vol] 0.56 10*3/uL High 0.00-0.44 [facility] Comment on above: Performed By: #### C DP, IOCAL, PT, PTT, BMP, MG, MAIKEL, TSHX #### [address] [place] [address] Code And Test Clerk: Campos Escobedo MD Eosinophils/100 WBC (Bld) 6 % High 1-4 [facility] Comment on above: Performed By: #### C DP, IOCAL, PT, PTT, BMP, MG, MAIKEL, TSHX #### [place] [address] Code And Test Clerk: Campos Escobedo MD Erythrocyte distribution width (RBC) [Ratio] 12.5 % Normal 11.8-14.4 [facility] Comment on above: Performed By: #### C DP, IOCAL, PT, PTT, BMP, MG, MAIKEL, TSHX #### [place] [address] Code And Test Clerk: Campos Escobedo MD Hematocrit (Bld) [Volume fraction] 35.2 % Low 36.3-47.1 [facility] Comment on above: Performed By: #### C DP, IOCAL, PT, PTT, BMP, MG, MAIKEL, TSHX #### [place] [address] Code And Test Clerk: Campos Escobedo MD Hemoglobin (Bld) [Mass/Vol] 11.1 g/dL Low 11.9-15.1 [facility] Comment on above: Performed By: #### C DP, IOCAL, PT, PTT, BMP, MG, MAIKEL, TSHX #### [place] [address] Code And Test Clerk: Campos Escobedo MD Immature granulocytes (Bld) [#/Vol] 2 % High 0 [facility] Comment on above: Performed By: #### C DP, IOCAL, PT, PTT, BMP, MG, MAIKEL, TSHX #### [address] [address] Code And Test Clerk: Campos Escobedo MD Lymphocytes (Bld) [#/Vol] 1.68 10*3/uL Normal 1.10-3.70 [facility] Comment on above: Performed By: #### C DP, IOCAL, PT, PTT, BMP, MG, MAIKEL, TSHX #### [address] [id number] Code And Test Clerk: Campos Escobedo MD Lymphocytes/100 WBC (Bld) 19 % Low 24-43 [facility] Comment on above: Performed By: #### C DP, IOCAL, PT, PTT, BMP, MG, MAIKEL, TSHX #### [place] [address] Code And Test Clerk: Campos Escobedo MD MCH (RBC) [Entitic mass] 29.8 pg Normal 25.2-33.5 [facility] Comment on above: Performed By: #### C DP, IOCAL, PT, PTT, BMP, MG, MAIKEL, TSHX #### [place] [address] Code And Test Clerk: Campos Escobedo MD MCHC (RBC) [Mass/Vol] 31.5 g/dL Normal 28.4-34.8 [facility] Comment on above: Performed By: #### C DP, IOCAL, PT, PTT, BMP, MG, MAIKEL, TSHX #### [address] [address] Code And Test Clerk: Campos Escobedo MD MCV (RBC) [Entitic vol] 94.4 fL Normal 82.6-102.9 [facility] Comment on above: Performed By: #### C DP, IOCAL, PT, PTT, BMP, MG, MAIKEL, TSHX #### [address] [address] Code And Test Clerk: Campos Escobedo MD Monocytes (Bld) [#/Vol] 0.70 10*3/uL Normal 0.10-1.20 [facility] Comment on above: Performed By: #### C DP, IOCAL, PT, PTT, BMP, MG, MAIKEL, TSHX #### [address] [address] Code And Test Clerk: Campos Escobedo MD Monocytes/100 WBC (Bld) 8 % Normal 3-12 [facility] Comment on above: Performed By: #### C DP, IOCAL, PT, PTT, BMP, MG, MAIKEL, TSHX #### [address] [address] Code And Test Clerk: Campos Escobedo MD Neutrophil (Seg) 65 % Normal 36-65 [facility] Comment on above: Performed By: #### C DP, IOCAL, PT, PTT, BMP, MG, MAIKEL, TSHX #### [address] [address] Code And Test Clerk: Campos Escobedo MD NRBC Automated 0.0 per 100 WBC Normal 0.0 [facility] Comment on above: Performed By: #### C DP, IOCAL, PT, PTT, BMP, MG, MAIKEL, TSHX #### [address] [address] Code And Test Clerk: Campos Escobedo MD Platelet mean volume (Bld) [Entitic vol] 8.7 fL Normal 8.1-13.5 [facility] Comment on above: Performed By: #### C DP, IOCAL, PT, PTT, BMP, MG, MAIKEL, TSHX #### [address] [address] Code And Test Clerk: Campos Escobedo MD Platelets (Bld) [#/Vol] 576 10*3/uL High 138-453 [facility] Comment on above: Performed By: #### C DP, IOCAL, PT, PTT, BMP, MG, MAIKEL, TSHX #### [address] [address] Code And Test Clerk: Campos Escobedo MD RBC (Bld) [#/Vol] 3.73 10*6/uL Low 3.95-5.11 [facility] Comment on above: Performed By: #### C DP, IOCAL, PT, PTT, BMP, MG, MAIKEL, TSHX #### [address] [address] Code And Test Clerk: Campos Escobedo MD WBC (Bld) [#/Vol] 9.0 10*3/uL Normal 3.5-11.3 [facility] Comment on above: Performed By: #### C DP, IOCAL, PT, PTT, BMP, MG, MAIKEL, TSHX #### [address] [address] Code And Test Clerk: Campos Escobedo MD Auto Diff Performed NOT REPORTED Normal [facility] Comment on above: Performed By: #### C DP, IOCAL, PT, PTT, BMP, MG, MAIKEL, TSHX #### [place] [address] Code And Test Clerk: Campos Escobedo MD Platelets (Bld) [#/Vol] NOT REPORTED Normal [facility] Comment on above: Performed By: #### C DP, IOCAL, PT, PTT, BMP, MG, MAIKEL, TSHX #### [address] [address] Code And Test Clerk: Campos Escobedo MD RBC morphology finding Nom (Bld) NOT REPORTED Normal [facility] Comment on above: Performed By: #### C DP, IOCAL, PT, PTT, BMP, MG, MAIKEL, TSHX #### [address] [address] Code And Test Clerk: Campos Escobedo MD WBC Morphology NOT REPORTED Normal [facility] Comment on above: Performed By: #### C DP, IOCAL, PT, PTT, BMP, MG, MAIKEL, TSHX #### [address], [place] [id number] Code And Test Clerk: Campos Escobedo MD Calcium, Ionicon 08-21-2019 Calcium [Mass/Vol] 1.09 mmol/L Low 1.13-1.33 [facility] Comment on above: Performed By: #### C DP, IOCAL, PT, PTT, BMP, MG, MAIKEL, TSHX #### [address] [id number] Code And Test Clerk: Campos Escobedo MD Cult,Aerobe/Anaerobeon 08-21 Cult,Aerobe/Anaerobe Specimen Descriptio n .HEART Special Requests .TISSUE Direct Exam NOT REPORTED Culture DUE TO THE SPECIMEN TYPE, THE ORDER WAS CANCELED AND REORDERED. PLEASE REFER TO: TISSUE CULTURE Report Status FINAL 08/21/2019 [facility] Comment on above: Performed By: #### C DP, IOCAL, PT, PTT, BMP, MG, MAIKEL, TSHX #### [address] [id number] Code And Test Clerk: Campos Escobedo MD Histology [facility] 08-21 Histology [facility] (NOTE) [id number] [facility] CONSULTING PATHOLOGISTS [facility]ATOM[facility] PATHOLOG[facility] [address] [place] [phone] NONGYNECOLOGICAL CYTOPATHOLOGY CONSULTATION Patient Name: TANYA BLAKE [facility] Rec: [id number] Path Number: [id number] Collected: 08/21/2019 Received: 08/21/2019 Reported: 08/22/2019 12:28 -- Diagnosis -- PERICARDIAL FLUID: NEGATIVE FOR MALIGNANCY. Johnson Hurtado Electronically Signed Out rdd/08/22/2019 Clinical Information Pericardial effusion. Source of Specimen 1: PERICARDIAL FLUID Gross Description PERICARDIAL FLUID 15.0 ml. red cloudy fluid. MICROSCOPIC DESCRIPTION Microscopic examination performed. [facility] Comment on above: Performed By: #### C DP, IOCAL, PT, PTT, BMP, MG, MAIKEL, TSHX #### [address] [address] Code And Test Clerk: Campos Escobedo MD Magnesiumon 08-21-2019 Magnesium [Mass/Vol] 1.9 mg/dL Normal 1.6-2.6 [facility] [place] [facility] Comment on above: Performed By: #### C DP, IOCAL, PT, PTT, BMP, MG, MAIKEL, TSHX #### [address] [id number] Code And Test Clerk: Campos Escobedo MD Non-Raw Material Planner Cytologyon 9 Case No: [id number] Normal [facility] Comment on above: Performed By: #### C DP, IOCAL, PT, PTT, BMP, MG, MAIKEL, TSHX #### [address] [id number] Code And Test Clerk: Campos Escobedo MD Specimen Description PERICARDIAL FLUID Normal [facility] Comment on above: Performed By: #### C DP, IOCAL, PT, PTT, BMP, MG, MAIKEL, TSHX #### [address] [address] Code And Test Clerk: Campos Escobedo MD OPERATIVE REPORTon 9 OPERATIVE REPORT [address] [phone] OPERATIVE REPORT PATIENT NAME: TANYA BLAKE : 1955 MED REC NO: [id number] ROOM: [id number] ACCOUNT NO: [id number] ADMIT DATE: 08/12/2019 PROVIDER: Erick Cain MD DATE OF PROCEDURE: 08/21/2019 PRIMARY ATTENDING SURGEON: rEick Cain MD OTHER ASSISTANTS: Included Maura Mackey RN, RFA PREOPERATIVE DIAGNOSIS: Large circumferential pericardial effusion. POSTOPERATIVE DIAGNOSIS: Large circumferential pericardial effusion. PROCEDURES: Subxiphoid incision, pericardial window creation, drainage of fluid, pericardial biopsy, cultures and cytology studies of fluid sent, drain placement with 19-mm Rigoberto. COMPLICATIONS: None. CONDITION: Stable. DISPOSITION: To CVICU. ESTIMATED BLOOD LOSS: Not applicable. ANESTHESIA: General endotracheal with Dr. Alvaro Francis. INDICATIONS FOR SURGERY: The patient is a 64-year-old woman on whom I was consulted for a large circumferential pericardial effusion after she was taken to the lab systems analyst, and it was deemed to be not approachable in this matter safely; therefore, we were consulted for pericardial window creation. With her consent, I took her to surgery for this on 08/21/2019. FINDINGS AT SURGERY: There was 250 mL of bloody drainage. There was some fibrinous material within this drainage as well. I sent some of this as well as pericardial tissue for studies and sent the fluid for culture and studies as well. I left a 19-mm Rigoberto in place. Also noteworthy was a transesophageal echocardiogram was performed live-time, which showed resolution of all but the most posterior part of the effusion, which was not physiologically significant. SURGERY IN DETAIL: The patient was identified in her bed in the CVICU and was transported to the operating room, where she was induced for general endotracheal anesthesia without difficulty. This included uneventful endotracheal intubation and the appropriate placement of lines and access for cardiac surgery. The operation began with the performance of a subxiphoid incision and I removed the very tip of the xiphoid. Through this, I was able to access the pericardium and achieve a window procedure. 250 mL of fluid were expressed and I gathered some of the fibrinous tissue from inside the pericardium as well at the pericardium itself and sent these things for studies. Ultimately, a 19-mm Rigoberto was left in place and WILLOW guide and showed that there was a small residual posterior effusion, but this was not physiologically significant. It was not safe for me to perform more aggressive maneuvers to work posteriorly through this incision given the anatomy, and I was uncomfortable doing so, therefore. Because there was a small and insignificant effusion, I left this behind. The wound was then closed in the usual layered fashion. The patient tolerated the procedure well and was extubated and brought to the CVICU in stable condition. There were no adequately trained or available residents for assistance in this operation, and the presence of Maura Mackey was critical for first assistance necessary to complete the operation. ERICK CAIN MD [id number]/[id number] Doc#: [id number] CC: Normal [facility] PTon 08-21-2019 INR Coag (PPP) [Relative time] 1.0 {INR} Normal [facility] Comment on above: Result Comment: Therapeutic Range: Moderate Anticoagulant Intensity: INR = 2.0-3.0 High Anticoagulant Intensity: INR = 2.5-3.5 Performed By: #### C DP, IOCAL, PT, PTT, BMP, MG, MAIKEL, TSHX #### [employer] [address] [place] [address] [id number] Code And Test Clerk: Campos Escobedo MD PT Coag (PPP) [Time] 10.4 s Normal 9.0-12.0 [facility] Comment on above: Performed By: #### C DP, IOCAL, PT, PTT, BMP, MG, MAIKEL, TSHX #### [address] [address] Code And Test Clerk: Camops Escobedo MD Phosphorus, Inorg.on 019 Phosphorus, Inorg. 3.3 mg/dL Normal 2.6-4.5 [facility] Comment on above: Performed By: #### C DP, IOCAL, PT, PTT, BMP, MG, MAIKEL, TSHX #### [employer] [address] [place] [address] Code And Test Clerk: Campos Escobedo MD Surgical Pathologyon 019 Surgical Pathology (NOTE) [id number] [facility] [employer] CONSULTING PATHOLOGISTS [facility] [address] [place] [id number] SURGICAL PATHOLOGY CONSULTATION Patient Name: TANYA BLAKE [facility] Rec: [id number] Path Number: [id number] Collected: 08/21/2019 Received: 08/21/2019 Reported: 08/22/2019 13:12 -- Diagnosis -- Diagnosis pericardium, biopsy: Chronic inflammation and organizing fibrinous exudate. Negative for malignancy. Johnson Hurtado Electronically Signed Out rdd/08/22/2019 Clinical Information Pre-op Diagnosis: PERICARDIAL EFFUSION Operative Findings: PERICARDIUM Operation Performed: PERICARDIAL WINDOW CREATION Source of Specimen 1: PERICARDIUM Gross Description TANYA BLAKE, PERICARDIUM Received fresh for frozen section are rubbery fragments of pink tissue 1 x 1 x 0.3 cm. FSX 1 1cs. Intraoperative Diagnosis FSDX: Pericardium, heavy inflammation. (RDD, 0850) Microscopic Description Microscopic examination performed. Normal [facility] Comment on above: Performed By: #### C DP, IOCAL, PT, PTT, BMP, MG, MAIKEL, TSHX #### [facility] [address] [place] [address] Code And Test Clerk: Campos Escobedo MD Type + Screenon 08-21-2019 Type + Screen Sample Expiration 08/23/2019,2359 Arm Band Number [id number] ABO/Rh(D) O POSITIVE Antibody Screen NEGATIVE Unit Number [id number] Blood Component Type Leukocyte Reduced Red Cell Unit Division 00 Status of Unit REL FROM ALLOC Transfusion Status OK TO TRANSFUSE Crossmatch Result COMPATIBLE Unit Number [id number] Blood Component Type Leukocyte Reduced Red Cell Unit Division 00 Status of Unit REL FROM ALLOC Transfusion Status OK TO TRANSFUSE Crossmatch Result COMPATIBLE Normal [facility] Comment on above: Performed By: #### C DP, IOCAL, PT, PTT, BMP, MG, MAIKEL, TSHX #### [facility] [address] [place] [address] Code And Test Clerk: Campos Escobedo MD XR CHEST PORTABLEon 08-21-20 19 XR CHEST PORTABLE EXAMINATION: ONE XRAY VIEW OF THE CHEST 08/21/2019 5:29 pm COMPARISON: 17 August 2019 HISTORY: ORDERING SYSTEM PROVIDED HISTORY: follow up pna, Lt effusion TECHNOLOGIST PROVIDED HISTORY: follow up pna, Lt effusion FINDINGS: AP portable view of the chest time stamped at 1720 hours demonstrates cardiomegaly, with heart size slightly smaller than on prior exam. Prior right basilar opacity has resolved. There is still blunting of the left costophrenic angle with left retrocardiac density possibly related to effusion IMPRESSION: Interval clearing of right basilar opacity. Persistent left effusion with left retrocardiac opacity. Interpreted by: Jillian Delong MD Signed by: Jillian Delong MD 08/21/19 Final result Normal [facility] APTTon 08-20-2019 aPTT Coag (Bld) [Time] 25.5 s Normal 20.5-30.5 [facility] Comment on above: Performed By: #### C DP, IOCAL, PT, PTT, BMP, MG, MAIKEL, TSHX #### [address] [id number] Code And Test Clerk: Campos Escobedo MD Basic Metabolic Profon 08-20 (cont.) Normal [facility] Comment on above: Result Comment: Aver age GFR for 60-69 years old: 85 mL/min/1.73sq m Chronic Kidney Disease: <60 mL/min/1.73sq m Kidney failure: <15 mL/min/1.73sq m eGFR calculated using average adult body mass. Additional eGFR calculator available at: http://www.[employer]/multiple_crcl_2012.htm Performed By: #### C DP, IOCAL, PT, PTT, BMP, MG, MAIKEL, TSHX #### [address] [id number] Code And Test Clerk: Campos Escobedo MD Anion gap [Moles/Vol] 11 mmol/L Normal 9-17 [facility] Comment on above: Performed By: #### C DP, IOCAL, PT, PTT, BMP, MG, MAIKEL, TSHX #### [address] [id number] Code And Test Clerk: Campos Escobedo MD Calcium [Mass/Vol] 8.6 mg/dL Normal 8.6-10.4 [facility] Comment on above: Performed By: #### C DP, IOCAL, PT, PTT, BMP, MG, MAIKEL, TSHX #### [address] [id number] Code And Test Clerk: Campos Escobedo MD Chloride [Moles/Vol] 100 mmol/L Normal 98-107 [facility] Comment on above: Performed By: #### C DP, IOCAL, PT, PTT, BMP, MG, MAIKEL, TSHX #### [address] [address] Code And Test Clerk: Campos Escobedo MD CO2 [Moles/Vol] 25 mmol/L Normal 20-31 [facility] Comment on above: Performed By: #### C DP, IOCAL, PT, PTT, BMP, MG, MAIKEL, TSHX #### [address] [address] Code And Test Clerk: Campos Escobedo MD Creatinine [Mass/Vol] 0.55 mg/dL Normal 0.50-0.90 [facility] Comment on above: Performed By: #### C DP, IOCAL, PT, PTT, BMP, MG, MAIKEL, TSHX #### [address] [address] Code And Test Clerk: Campos Escobedo MD GFR, Amer >60 Normal >60 [facility] Comment on above: Performed By: #### C DP, IOCAL, PT, PTT, BMP, MG, MAIKEL, TSHX #### [address] [address] Code And Test Clerk: Campos Escobedo MD GFR,non Amer >60 Normal >60 [facility] Comment on above: Performed By: #### C DP, IOCAL, PT, PTT, BMP, MG, MAIKEL, TSHX #### [address] [address] Code And Test Clerk: Campos Escobedo MD Glucose [Mass/Vol] 199 mg/dL High 70-99 [facility] Comment on above: Performed By: #### C DP, IOCAL, PT, PTT, BMP, MG, MAIKEL, TSHX #### [address] [address] Code And Test Clerk: Campos Escobedo MD Potassium [Moles/Vol] 4.1 mmol/L Normal 3.7-5.3 [facility] Comment on above: Performed By: #### C DP, IOCAL, PT, PTT, BMP, MG, MAIKEL, TSHX #### [address] [id number] Code And Test Clerk: Campos Escobedo MD Sodium [Moles/Vol] 136 mmol/L Normal 135-144 [facility] Comment on above: Performed By: #### C DP, IOCAL, PT, PTT, BMP, MG, MAIKEL, TSHX #### [address] [address] Code And Test Clerk: Campos Escobedo MD Urea nitrogen [Mass/Vol] 11 mg/dL Normal 8-23 [facility] Comment on above: Performed By: #### C DP, IOCAL, PT, PTT, BMP, MG, MAIKEL, TSHX #### [address] [address] Code And Test Clerk: Campos Escobedo MD BUN/CRE Ratio NOT REPORTED Normal 9- [facility] Comment on above: Performed By: #### C DP, IOCAL, PT, PTT, BMP, MG, MAIKEL, TSHX #### [address] [address] Code And Test Clerk: Campos Escobedo MD Staging: NOT REPORTED Normal [facility] Comment on above: Performed By: #### C DP, IOCAL, PT, PTT, BMP, MG, MAIKEL, TSHX #### [address] [address] Code And Test Clerk: Campos Escobedo MD Blood Bank Specimenon 2018 Blood Bank Specimen NOT REPORTED Normal [facility] CBC with Diffon 08-20-2019 Abs. Basophil 0.09 k/uL Normal 0.00-0.20 [facility] Comment on above: Performed By: #### C DP, IOCAL, PT, PTT, BMP, MG, MAIKEL, TSHX #### [facility] [employer] [address] [place] [id number] Code And Test Clerk: Campos Escobedo MD Abs.Imm.Granulocyte 0.09 k/uL Normal 0.00-0.30 [facility] Comment on above: Performed By: #### C DP, IOCAL, PT, PTT, BMP, MG, MAIKEL, TSHX #### [place] [address] Code And Test Clerk: Campos Escobedo MD Abs.Neutrophil (Seg) 5.67 k/uL Normal 1.50-8.10 [facility] Comment on above: Performed By: #### C DP, IOCAL, PT, PTT, BMP, MG, MAIKEL, TSHX #### [place] [address] Code And Test Clerk: Campos Escobedo MD Basophils/100 WBC (Bld) 1 % Normal 0-2 [facility] Comment on above: Performed By: #### C DP, IOCAL, PT, PTT, BMP, MG, MAIKEL, TSHX #### [place] [address] Code And Test Clerk: Campos Escobedo MD Eosinophils (Bld) [#/Vol] 0.56 10*3/uL High 0.00-0.44 [facility] Comment on above: Performed By: #### C DP, IOCAL, PT, PTT, BMP, MG, MAIKEL, TSHX #### [facility] [employer] [address] [place] [address] Code And Test Clerk: Campos Escobedo MD Eosinophils/100 WBC (Bld) 6 % High 1-4 [facility] Comment on above: Performed By: #### C DP, IOCAL, PT, PTT, BMP, MG, MAIKEL, TSHX #### [facility] [employer] [address] [place] [address] Code And Test Clerk: Campos Escobedo MD Erythrocyte distribution width (RBC) [Ratio] 12.6 % Normal 11.8-14.4 [facility] Comment on above: Performed By: #### C DP, IOCAL, PT, PTT, BMP, MG, MAIKEL, TSHX #### [place] [address] Code And Test Clerk: Campos Escobedo MD Hematocrit (Bld) [Volume fraction] 35.6 % Low 36.3-47.1 [facility] Comment on above: Performed By: #### C DP, IOCAL, PT, PTT, BMP, MG, MAIKEL, TSHX #### [place] [address] Code And Test Clerk: Campos Escobedo MD Hemoglobin (Bld) [Mass/Vol] 11.3 g/dL Low 11.9-15.1 [facility] Comment on above: Performed By: #### C DP, IOCAL, PT, PTT, BMP, MG, MAIKEL, TSHX #### [place] [address] Code And Test Clerk: Campos Escobedo MD Immature granulocytes (Bld) [#/Vol] 1 % High 0 [facility] Comment on above: Performed By: #### C DP, IOCAL, PT, PTT, BMP, MG, MAIKEL, TSHX #### [place] [address] Code And Test Clerk: Campos Escobedo MD Lymphocytes (Bld) [#/Vol] 1.57 10*3/uL Normal 1.10-3.70 [facility] Comment on above: Performed By: #### C DP, IOCAL, PT, PTT, BMP, MG, MAIKEL, TSHX #### [place] [address] Code And Test Clerk: Campos Escobedo MD Lymphocytes/100 WBC (Bld) 18 % Low 24-43 [facility] Comment on above: Performed By: #### C DP, IOCAL, PT, PTT, BMP, MG, MAIKEL, TSHX #### [address] [id number] Code And Test Clerk: Campos Escobedo MD MCH (RBC) [Entitic mass] 30.5 pg Normal 25.2-33.5 [facility] Comment on above: Performed By: #### C DP, IOCAL, PT, PTT, BMP, MG, MAIKEL, TSHX #### [place] [address] Code And Test Clerk: Campos Escobedo MD MCHC (RBC) [Mass/Vol] 31.7 g/dL Normal 28.4-34.8 [facility] Comment on above: Performed By: #### C DP, IOCAL, PT, PTT, BMP, MG, MAIKEL, TSHX #### [place] [address] Code And Test Clerk: Campos Escobedo MD MCV (RBC) [Entitic vol] 96.0 fL Normal 82.6-102.9 [facility] Comment on above: Performed By: #### C DP, IOCAL, PT, PTT, BMP, MG, MAIKEL, TSHX #### [address] [address] Code And Test Clerk: Campos Escobedo MD Monocytes (Bld) [#/Vol] 0.73 10*3/uL Normal 0.10-1.20 [facility] Comment on above: Performed By: #### C DP, IOCAL, PT, PTT, BMP, MG, MAIKEL, TSHX #### [address] [address] Code And Test Clerk: Campos Escobedo MD Monocytes/100 WBC (Bld) 8 % Normal 3-12 [facility] Comment on above: Performed By: #### C DP, IOCAL, PT, PTT, BMP, MG, MAIKEL, TSHX #### [address] [address] Code And Test Clerk: Campos Escobedo MD Neutrophil (Seg) 65 % Normal 36-65 [facility] Comment on above: Performed By: #### C DP, IOCAL, PT, PTT, BMP, MG, MAIKEL, TSHX #### [address] [address] Code And Test Clerk: Campos Escobedo MD NRBC Automated 0.0 per 100 WBC Normal 0.0 [facility] Comment on above: Performed By: #### C DP, IOCAL, PT, PTT, BMP, MG, MAIKEL, TSHX #### [address] [address] Code And Test Clerk: Campos Escobedo MD Platelet mean volume (Bld) [Entitic vol] 8.9 fL Normal 8.1-13.5 [facility] Comment on above: Performed By: #### C DP, IOCAL, PT, PTT, BMP, MG, MAIKEL, TSHX #### [address] [address] Code And Test Clerk: Campos Escobedo MD Platelets (Bld) [#/Vol] 599 10*3/uL High 138-453 [facility] Comment on above: Performed By: #### C DP, IOCAL, PT, PTT, BMP, MG, MAIKEL, TSHX #### [address] [address] Code And Test Clerk: Campos Escobedo MD RBC (Bld) [#/Vol] 3.71 10*6/uL Low 3.95-5.11 [facility] Comment on above: Performed By: #### C DP, IOCAL, PT, PTT, BMP, MG, MAIKEL, TSHX #### [address] [address] Code And Test Clerk: Campos Escobedo MD WBC (Bld) [#/Vol] 8.7 10*3/uL Normal 3.5-11.3 [facility] Comment on above: Performed By: #### C DP, IOCAL, PT, PTT, BMP, MG, MAIKEL, TSHX #### [address] [address] Code And Test Clerk: Campos Escobedo MD Auto Diff Performed NOT REPORTED Normal [facility] Comment on above: Performed By: #### C DP, IOCAL, PT, PTT, BMP, MG, MAIKEL, TSHX #### [address] [address] Code And Test Clerk: Campos Escobedo MD Platelets (Bld) [#/Vol] NOT REPORTED Normal [facility] Comment on above: Performed By: #### C DP, IOCAL, PT, PTT, BMP, MG, MAIKEL, TSHX #### [facility] [employer] [address] [place] [address] Code And Test Clerk: Campos Escobedo MD RBC morphology finding Nom (Bld) NOT REPORTED Normal [facility] Comment on above: Performed By: #### C DP, IOCAL, PT, PTT, BMP, MG, MAIKEL, TSHX #### [facility] [employer] [address] [place] [address] Code And Test Clerk: Campos Escobedo MD WBC Morphology NOT REPORTED Normal [facility] Comment on above: Performed By: #### C DP, IOCAL, PT, PTT, BMP, MG, MAIKEL, TSHX #### [facility] [employer] [address] [place] [id number] Code And Test Clerk: Campos Escobedo MD Calcium, Ionicon 08-20-2019 Calcium [Mass/Vol] 1.20 mmol/L Normal 1.13-1.33 [facility] Comment on above: Performed By: #### C DP, IOCAL, PT, PTT, BMP, MG, MAIKEL, TSHX #### [address] [id number] Code And Test Clerk: Campos Escobedo MD Magnesiumon 08-20-2019 Magnesium [Mass/Vol] 2.0 mg/dL Normal 1.6-2.6 [facility] Comment on above: Performed By: #### C DP, IOCAL, PT, PTT, BMP, MG, MAIKEL, TSHX #### [place] [id number] Code And Test Clerk: Campos Escobedo MD PTon 08-20-2019 INR Coag (PPP) [Relative time] 1.0 {INR} Normal [facility] Comment on above: Result Comment: Therapeutic Range: Moderate Anticoagulant Intensity: INR = 2.0-3.0 High Anticoagulant Intensity: INR = 2.5-3.5 Performed By: #### C DP, IOCAL, PT, PTT, BMP, MG, MAIKEL, TSHX #### [address] [id number] Code And Test Clerk: Campos Escobedo MD PT Coag (PPP) [Time] 10.3 s Normal 9.0-12.0 [facility] Comment on above: Performed By: #### C DP, IOCAL, PT, PTT, BMP, MG, MAIKEL, TSHX #### [place] [id number] Code And Test Clerk: Campos Escobedo MD Phosphorus, Inorg.on 019 Phosphorus, Inorg. 3.4 mg/dL Normal 2.6-4.5 [facility] Comment on above: Performed By: #### C DP, IOCAL, PT, PTT, BMP, MG, MAIKEL, TSHX #### [address] [id number] Code And Test Clerk: Campos Escobedo MD APTTon 08-19-2019 aPTT Coag (Bld) [Time] 26.3 s Normal 20.5-30.5 [facility] Comment on above: Performed By: #### C DP, IOCAL, PT, PTT, BMP, MG, MAIKEL, TSHX #### [address] [address] Code And Test Clerk: Campos Escobedo MD Basic Metabolic Profon 08-19 (cont.) [facility] Comment on above: Result Comment: Aver age GFR for 60-69 years old: 85 mL/min/1.73sq m Chronic Kidney Disease: <60 mL/min/1.73sq m Kidney failure: <15 mL/min/1.73sq m eGFR calculated using average adult body mass. Additional eGFR calculator available at: http://www.[employer]/multiple_crcl_2011.htm Performed By: #### C DP, IOCAL, PT, PTT, BMP, MG, MAIKEL, TSHX #### [address] [address] Code And Test Clerk: Campos Escobedo MD Anion gap [Moles/Vol] 12 mmol/L Normal 9-17 [facility] Comment on above: Performed By: #### C DP, IOCAL, PT, PTT, BMP, MG, MAIKEL, TSHX #### [address] [address] Code And Test Clerk: Campos Escobedo MD Calcium [Mass/Vol] 8.7 mg/dL Normal 8.6-10.4 [facility] Comment on above: Performed By: #### C DP, IOCAL, PT, PTT, BMP, MG, MAIKEL, TSHX #### [address] [address] Code And Test Clerk: Campos Escobedo MD Chloride [Moles/Vol] 101 mmol/L Normal 98-107 [facility] Comment on above: Performed By: #### C DP, IOCAL, PT, PTT, BMP, MG, MAIKEL, TSHX #### [address] [address] Code And Test Clerk: Campos Escobedo MD CO2 [Moles/Vol] 24 mmol/L Normal 20-31 [facility] Comment on above: Performed By: #### C DP, IOCAL, PT, PTT, BMP, MG, MAIKEL, TSHX #### [address] [phone] Code And Test Clerk: Campos Escobedo MD Creatinine [Mass/Vol] 0.47 mg/dL Low 0.50-0.90 [facility] Comment on above: Performed By: #### C DP, IOCAL, PT, PTT, BMP, MG, MAIKEL, TSHX #### [address] [address] Code And Test Clerk: Campos Escobedo MD GFR, Amer >60 Normal >60 [facility] Comment on above: Performed By: #### C DP, IOCAL, PT, PTT, BMP, MG, MAIKLE, TSHX #### [address] [address] Code And Test Clerk: Campos Escobedo MD GFR,non Amer >60 Normal >60 [facility] Comment on above: Performed By: #### C DP, IOCAL, PT, PTT, BMP, MG, MAIKEL, TSHX #### [address] [id number] Code And Test Clerk: Campos Escobedo MD Glucose [Mass/Vol] 200 mg/dL High 70-99 [facility] Comment on above: Performed By: #### C DP, IOCAL, PT, PTT, BMP, MG, MAIKEL, TSHX #### [address] [address] Code And Test Clerk: Campos Escobdeo MD Potassium [Moles/Vol] 4.3 mmol/L Normal 3.7-5.3 [facility] Comment on above: Performed By: #### C DP, IOCAL, PT, PTT, BMP, MG, MAIKEL, TSHX #### [address] [address] Code And Test Clerk: Campos Escobedo MD Sodium [Moles/Vol] 137 mmol/L Normal 135-144 [facility] Comment on above: Performed By: #### C DP, IOCAL, PT, PTT, BMP, MG, MAIKEL, TSHX #### [address] [address] Code And Test Clerk: Campos Escobedo MD Urea nitrogen [Mass/Vol] 9 mg/dL Normal 8-23 [facility] Comment on above: Performed By: #### C DP, IOCAL, PT, PTT, BMP, MG, MAIKEL, TSHX #### [address] [address] Code And Test Clerk: Campos Escobedo MD BUN/CRE Ratio NOT REPORTED Normal 9-20 [facility] Comment on above: Performed By: #### C DP, IOCAL, PT, PTT, BMP, MG, MAIKEL, TSHX #### [address] [address] Code And Test Clerk: Campos Escobedo MD Staging: NOT REPORTED Normal [facility] Comment on above: Performed By: #### C DP, IOCAL, PT, PTT, BMP, MG, MAIKEL, TSHX #### [address] [address] Code And Test Clerk: Campos Escobedo MD CBC with Diffon 08-19-2019 Abs. Basophil 0.07 k/uL Normal 0.00-0.20 [facility] Comment on above: Performed By: #### C DP, IOCAL, PT, PTT, BMP, MG, MAIKEL, TSHX #### [address] [address] Code And Test Clerk: Campos Escobedo MD Abs.Imm.Granulocyte 0.09 k/uL Normal 0.00-0.30 [facility] Comment on above: Performed By: #### C DP, IOCAL, PT, PTT, BMP, MG, MAIKEL, TSHX #### [place] [address] Code And Test Clerk: Campos Escobedo MD Abs.Neutrophil (Seg) 5.72 k/uL Normal 1.50-8.10 [facility] Comment on above: Performed By: #### C DP, IOCAL, PT, PTT, BMP, MG, MAIKEL, TSHX #### [place] [address] Code And Test Clerk: Campos Escobedo MD Basophils/100 WBC (Bld) 1 % Normal 0-2 [facility] Comment on above: Performed By: #### C DP, IOCAL, PT, PTT, BMP, MG, MAIKEL, TSHX #### [place] [address] Code And Test Clerk: Campos Escobedo MD Eosinophils (Bld) [#/Vol] 0.49 10*3/uL High 0.00-0.44 [facility] Comment on above: Performed By: #### C DP, IOCAL, PT, PTT, BMP, MG, MAIKEL, TSHX #### [place] [address] Code And Test Clerk: Campos Escobedo MD Eosinophils/100 WBC (Bld) 6 % High 1-4 [facility] Comment on above: Performed By: #### C DP, IOCAL, PT, PTT, BMP, MG, MAIKEL, TSHX #### [place] [address] Code And Test Clerk: Campos Escobedo MD Erythrocyte distribution width (RBC) [Ratio] 12.7 % Normal 11.8-14.4 [facility] Comment on above: Performed By: #### C DP, IOCAL, PT, PTT, BMP, MG, MAIKEL, TSHX #### [address] [address] Code And Test Clerk: Campos Escobedo MD Hematocrit (Bld) [Volume fraction] 37.4 % Normal 36.3-47.1 [facility] Comment on above: Performed By: #### C DP, IOCAL, PT, PTT, BMP, MG, MAIKEL, TSHX #### [place] [address] Code And Test Clerk: Campos Escobedo MD Hemoglobin (Bld) [Mass/Vol] 11.7 g/dL Low 11.9-15.1 [facility] Comment on above: Performed By: #### C DP, IOCAL, PT, PTT, BMP, MG, MAIKEL, TSHX #### [address] [address] Code And Test Clerk: Campos Escobedo MD Immature granulocytes (Bld) [#/Vol] 1 % High 0 [facility] Comment on above: Performed By: #### C DP, IOCAL, PT, PTT, BMP, MG, MAIKEL, TSHX #### [place] [address] Code And Test Clerk: Campos Escobedo MD Lymphocytes (Bld) [#/Vol] 1.24 10*3/uL Normal 1.10-3.70 [facility] Comment on above: Performed By: #### C DP, IOCAL, PT, PTT, BMP, MG, MAIKEL, TSHX #### [address] [address] Code And Test Clerk: Campos Escoebdo MD Lymphocytes/100 WBC (Bld) 15 % Low 24-43 [facility] [place] Comment on above: Performed By: #### C DP, IOCAL, PT, PTT, BMP, MG, MAIKEL, TSHX #### [address] [address] Code And Test Clerk: Campos Escobedo MD MCH (RBC) [Entitic mass] 30.2 pg Normal 25.2-33.5 [facility] [place] Comment on above: Performed By: #### C DP, IOCAL, PT, PTT, BMP, MG, MAIKEL, TSHX #### [address] [address] Code And Test Clerk: Campos Escobedo MD MCHC (RBC) [Mass/Vol] 31.3 g/dL Normal 28.4-34.8 [facility] [place] Comment on above: Performed By: #### C DP, IOCAL, PT, PTT, BMP, MG, MAIKEL, TSHX #### [address] [address] Code And Test Clerk: Campos Escobedo MD MCV (RBC) [Entitic vol] 96.6 fL Normal 82.6-102.9 [facility] [place] Comment on above: Performed By: #### C DP, IOCAL, PT, PTT, BMP, MG, MAIKEL, TSHX #### [address] [address] Code And Test Clerk: Campos Escobedo MD Monocytes (Bld) [#/Vol] 0.72 10*3/uL Normal 0.10-1.20 [facility] [place] Comment on above: Performed By: #### C DP, IOCAL, PT, PTT, BMP, MG, MAIKEL, TSHX #### [place] [address] Code And Test Clerk: Campos Escobedo MD Monocytes/100 WBC (Bld) 9 % Normal 3-12 [facility] [place] Comment on above: Performed By: #### C DP, IOCAL, PT, PTT, BMP, MG, MAIKEL, TSHX #### [address] [address] Code And Test Clerk: Campos Escobedo MD Neutrophil (Seg) 69 % High 36-65 [facility] Comment on above: Performed By: #### C DP, IOCAL, PT, PTT, BMP, MG, MAIKEL, TSHX #### [address] [id number] Code And Test Clerk: Campos Escobedo MD NRBC Automated 0.0 per 100 WBC Normal 0.0 [facility] [place] Comment on above: Performed By: #### C DP, IOCAL, PT, PTT, BMP, MG, MAIKEL, TSHX #### [address] [id number] Code And Test Clerk: Campos Escobedo MD Platelet mean volume (Bld) [Entitic vol] 8.6 fL Normal 8.1-13.5 [facility] [place] Comment on above: Performed By: #### C DP, IOCAL, PT, PTT, BMP, MG, MAIKEL, TSHX #### [address] [address] Code And Test Clerk: Campos Escobedo MD Platelets (Bld) [#/Vol] 588 10*3/uL High 138-453 [facility] [place] Comment on above: Performed By: #### C DP, IOCAL, PT, PTT, BMP, MG, MAIKEL, TSHX #### [address] [address] Code And Test Clerk: Campos Escobedo MD RBC (Bld) [#/Vol] 3.87 10*6/uL Low 3.95-5.11 [facility] [place] Comment on above: Performed By: #### C DP, IOCAL, PT, PTT, BMP, MG, MAIKEL, TSHX #### [address] [address] Code And Test Clerk: Campos Escobedo MD WBC (Bld) [#/Vol] 8.3 10*3/uL Normal 3.5-11.3 [facility] [place] Comment on above: Performed By: #### C DP, IOCAL, PT, PTT, BMP, MG, MAIKEL, TSHX #### [address] [place] [address] Code And Test Clerk: Campos Escobedo MD Auto Diff Performed NOT REPORTED Normal [facility] Comment on above: Performed By: #### C DP, IOCAL, PT, PTT, BMP, MG, MAIKEL, TSHX #### [address] [address] Code And Test Clerk: Campos Escobedo MD Platelets (Bld) [#/Vol] NOT REPORTED Normal [facility] [place] Comment on above: Performed By: #### C DP, IOCAL, PT, PTT, BMP, MG, MAIKEL, TSHX #### [address] [address] Code And Test Clerk: Campos Escobedo MD RBC morphology finding Nom (Bld) NOT REPORTED Normal [facility] [place] Comment on above: Performed By: #### C DP, IOCAL, PT, PTT, BMP, MG, MAIKEL, TSHX #### [address] [address] Code And Test Clerk: Campos Escobedo MD WBC Morphology NOT REPORTED Normal [facility] Comment on above: Performed By: #### C DP, IOCAL, PT, PTT, BMP, MG, MAIKEL, TSHX #### [address] [address] Code And Test Clerk: Campos Escobedo MD Calcium, Ionicon 08-19-2019 Calcium [Mass/Vol] 0.99 mmol/L Low 1.13-1.33 [facility] [place] Comment on above: Performed By: #### C DP, IOCAL, PT, PTT, BMP, MG, MAIKEL, TSHX #### [facility] [address] [place] [id number] Code And Test Clerk: Campos Escobedo MD Hemoglobin A1Con 08-19-2019 HbA1c (Bld) [Mass fraction] 7.4 % High 4.0-6.0 [facility] [place] Comment on above: Performed By: #### C DP, IOCAL, PT, PTT, BMP, MG, MAIKEL, TSHX #### [address] [id number] Code And Test Clerk: Campos Escobedo MD HbA1c (Bld) [Mass fraction] 166 mg/dL Normal [facility] [place] Comment on above: Result Comment: The ADA and AACC recommend providing the estimated average glucose result to permit better patient understanding of their HBA1c result. Performed By: #### C DP, IOCAL, PT, PTT, BMP, MG, MAIKEL, TSHX #### [address] [id number] Code And Test Clerk: Campos Escobedo MD Inf Dis Interventionon 08-19 Intervention: IV to PO Normal [facility] [place] Comment on above: Performed By: #### C DP, IOCAL, PT, PTT, BMP, MG, MAIKEL, TSHX #### [place] [id number] Code And Test Clerk: Campos Escobedo MD Magnesiumon 08-19-2019 Magnesium [Mass/Vol] 2.2 mg/dL Normal 1.6-2.6 [facility] Comment on above: Performed By: #### C DP, IOCAL, PT, PTT, BMP, MG, MAIKEL, TSHX #### [address] [id number] Code And Test Clerk: Campos Escobedo MD PTon 08-19-2019 INR Coag (PPP) [Relative time] 0.9 {INR} Normal [facility] [place] Comment on above: Result Comment: Therapeutic Range: Moderate Anticoagulant Intensity: INR = 2.0-3.0 High Anticoagulant Intensity: INR = 2.5-3.5 Performed By: #### C DP, IOCAL, PT, PTT, BMP, MG, MAIKEL, TSHX #### [address] [id number] Code And Test Clerk: Campos Escobedo MD PT Coag (PPP) [Time] 10.0 s Normal 9.0-12.0 [facility] Comment on above: Performed By: #### C DP, IOCAL, PT, PTT, BMP, MG, MAIKEL, TSHX #### [address] [address] Code And Test Clerk: Campos Escobedo MD Phosphorus, Inorg.on 019 Phosphorus, Inorg. 3.3 mg/dL Normal 2.6-4.5 [facility] [place] Comment on above: Performed By: #### C DP, IOCAL, PT, PTT, BMP, MG, MAIKEL, TSHX #### [address] [address] Code And Test Clerk: Campos Escobedo MD APTTon 08-18-2019 aPTT Coag (Bld) [Time] 24.7 s Normal 20.5-30.5 [facility] [place] Comment on above: Performed By: #### C DP, IOCAL, PT, PTT, BMP, MG, MAIKEL, TSHX #### [address] [address] Code And Test Clerk: Campos Escobedo MD Basic Metabolic Profon 08-18 (cont.) [facility] Comment on above: Result Comment: Aver age GFR for 60-69 years old: 85 mL/min/1.73sq m Chronic Kidney Disease: <60 mL/min/1.73sq m Kidney failure: <15 mL/min/1.73sq m eGFR calculated using average adult body mass. Additional eGFR calculator available at: http://www.[employer].com/multiple_crcl_2012.htm Performed By: #### C DP, IOCAL, PT, PTT, BMP, MG, MAIKEL, TSHX #### [address] [address] Code And Test Clerk: Campos Escobedo MD Anion gap [Moles/Vol] 12 mmol/L Normal 9-17 [facility] [place] Comment on above: Performed By: #### C DP, IOCAL, PT, PTT, BMP, MG, MAIKEL, TSHX #### [address] [phone] Code And Test Clerk: Campos Escobedo MD Calcium [Mass/Vol] 8.9 mg/dL Normal 8.6-10.4 [facility] Comment on above: Performed By: #### C DP, IOCAL, PT, PTT, BMP, MG, MAIKEL, TSHX #### [address] [address] Code And Test Clerk: Campos Escobedo MD Chloride [Moles/Vol] 98 mmol/L Normal 98-107 [facility] Comment on above: Performed By: #### C DP, IOCAL, PT, PTT, BMP, MG, MAIKEL, TSHX #### [address] [address] Code And Test Clerk: Campos Escobedo MD CO2 [Moles/Vol] 26 mmol/L Normal 20-31 [facility] [place] Comment on above: Performed By: #### C DP, IOCAL, PT, PTT, BMP, MG, MAIKEL, TSHX #### [address] [address] Code And Test Clerk: Campos Escobedo MD Creatinine [Mass/Vol] 0.51 mg/dL Normal 0.50-0.90 [facility] [place] Comment on above: Performed By: #### C DP, IOCAL, PT, PTT, BMP, MG, MAIKEL, TSHX #### [address] [address] Code And Test Clerk: Campos Escobedo MD GFR, Amer >60 Normal >60 [facility] Comment on above: Performed By: #### C DP, IOCAL, PT, PTT, BMP, MG, MAIKEL, TSHX #### [address] [phone] Code And Test Clerk: Campos Escobedo MD GFR,non Amer >60 Normal >60 [facility] Comment on above: Performed By: #### C DP, IOCAL, PT, PTT, BMP, MG, MAIKEL, TSHX #### [address] [phone] Code And Test Clerk: Campos Escobedo MD Glucose [Mass/Vol] 206 mg/dL High 70-99 [facility] [place] Comment on above: Performed By: #### C DP, IOCAL, PT, PTT, BMP, MG, MAIKEL, TSHX #### [address] [phone] Code And Test Clerk: Campos Escobedo MD Potassium [Moles/Vol] 4.8 mmol/L Normal 3.7-5.3 [facility] [place] Comment on above: Result Comment: SPEC IMEN SLIGHTLY HEMOLYZED, RESULTS MAY BE ADVERSELY AFFECTED. Performed By: #### C DP, IOCAL, PT, PTT, BMP, MG, MAIKEL, TSHX #### [address] [phone] Code And Test Clerk: Campos Escobedo MD Sodium [Moles/Vol] 136 mmol/L Normal 135-144 [facility] [place] Comment on above: Performed By: #### C DP, IOCAL, PT, PTT, BMP, MG, MAIKEL, TSHX #### [address] [phone] Code And Test Clerk: Campos Escobedo MD Urea nitrogen [Mass/Vol] 8 mg/dL Normal 8-23 [facility] Comment on above: Performed By: #### C DP, IOCAL, PT, PTT, BMP, MG, MAIKEL, TSHX #### [address] [id number] Code And Test Clerk: Campos Escobedo MD BUN/CRE Ratio NOT REPORTED Normal 9-20 [facility] Comment on above: Performed By: #### C DP, IOCAL, PT, PTT, BMP, MG, MAIKEL, TSHX #### [address] [address] Code And Test Clerk: Campos Escobedo MD Staging: NOT REPORTED Normal [facility] Comment on above: Performed By: #### C DP, IOCAL, PT, PTT, BMP, MG, MAIKEL, TSHX #### [place] [address] Code And Test Clerk: Campos Escobedo MD CBC with Diffon 08-18-2019 Abs. Basophil 0.08 k/uL Normal 0.00-0.20 [facility] Comment on above: Performed By: #### C DP, IOCAL, PT, PTT, BMP, MG, MAIKEL, TSHX #### [place] [address] Code And Test Clerk: Campos Escobedo MD Abs.Imm.Granulocyte 0.08 k/uL Normal 0.00-0.30 [facility] Comment on above: Performed By: #### C DP, IOCAL, PT, PTT, BMP, MG, MAIKEL, TSHX #### [place] [address] Code And Test Clerk: Campos Escobedo MD Abs.Neutrophil (Seg) 6.32 k/uL Normal 1.50-8.10 [facility] Comment on above: Performed By: #### C DP, IOCAL, PT, PTT, BMP, MG, MAIKEL, TSHX #### [place] [address] Code And Test Clerk: Campos Escobedo MD Basophils/100 WBC (Bld) 1 % Normal 0-2 [facility] Comment on above: Performed By: #### C DP, IOCAL, PT, PTT, BMP, MG, MAIKEL, TSHX #### [address] [address] Code And Test Clerk: Campos Escobedo MD Eosinophils (Bld) [#/Vol] 0.43 10*3/uL Normal 0.00-0.44 [facility] Comment on above: Performed By: #### C DP, IOCAL, PT, PTT, BMP, MG, MAIKEL, TSHX #### [place] [address] Code And Test Clerk: Campos Escobedo MD Eosinophils/100 WBC (Bld) 5 % High 1-4 [facility] Comment on above: Performed By: #### C DP, IOCAL, PT, PTT, BMP, MG, MAIKEL, TSHX #### [place] [address] Code And Test Clerk: Campos Escobedo MD Erythrocyte distribution width (RBC) [Ratio] 12.7 % Normal 11.8-14.4 [facility] Comment on above: Performed By: #### C DP, IOCAL, PT, PTT, BMP, MG, MAIKEL, TSHX #### [place] [address] Code And Test Clerk: Campos Escobedo MD Hematocrit (Bld) [Volume fraction] 36.6 % Normal 36.3-47.1 [facility] Comment on above: Performed By: #### C DP, IOCAL, PT, PTT, BMP, MG, MAIKEL, TSHX #### [place] [address] Code And Test Clerk: Campos Escobedo MD Hemoglobin (Bld) [Mass/Vol] 11.7 g/dL Low 11.9-15.1 [facility] Comment on above: Performed By: #### C DP, IOCAL, PT, PTT, BMP, MG, MAIKEL, TSHX #### [address] [address] Code And Test Clerk: Campos Escobedo MD Immature granulocytes (Bld) [#/Vol] 1 % High 0 [facility] Comment on above: Performed By: #### C DP, IOCAL, PT, PTT, BMP, MG, MAIKEL, TSHX #### [address] [address] Code And Test Clerk: Campos Escobedo MD Lymphocytes (Bld) [#/Vol] 1.17 10*3/uL Normal 1.10-3.70 [facility] [place] Comment on above: Performed By: #### C DP, IOCAL, PT, PTT, BMP, MG, MAIKEL, TSHX #### [address] [address] Code And Test Clerk: Campos Escobedo MD Lymphocytes/100 WBC (Bld) 13 % Low 24-43 [facility] Comment on above: Performed By: #### C DP, IOCAL, PT, PTT, BMP, MG, MAIKEL, TSHX #### [address] [address] Code And Test Clerk: Campos Escobedo MD MCH (RBC) [Entitic mass] 31.0 pg Normal 25.2-33.5 [facility] Comment on above: Performed By: #### C DP, IOCAL, PT, PTT, BMP, MG, MAIKEL, TSHX #### [address] [address] Code And Test Clerk: Campos Escobedo MD MCHC (RBC) [Mass/Vol] 32.0 g/dL Normal 28.4-34.8 [facility] Comment on above: Performed By: #### C DP, IOCAL, PT, PTT, BMP, MG, MAIKEL, TSHX #### [address] [address] Code And Test Clerk: Campos Escobedo MD MCV (RBC) [Entitic vol] 97.1 fL Normal 82.6-102.9 [facility] Comment on above: Performed By: #### C DP, IOCAL, PT, PTT, BMP, MG, MAIKEL, TSHX #### [facility] [employer] [address] [place] [id number] Code And Test Clerk: Campos Escobedo MD Monocytes (Bld) [#/Vol] 0.71 10*3/uL Normal 0.10-1.20 [facility] Comment on above: Performed By: #### C DP, IOCAL, PT, PTT, BMP, MG, MAIKEL, TSHX #### [address] [address] Code And Test Clerk: Campos Escobedo MD Monocytes/100 WBC (Bld) 8 % Normal 3-12 [facility] Comment on above: Performed By: #### C DP, IOCAL, PT, PTT, BMP, MG, MAIKEL, TSHX #### [address] [address] Code And Test Clerk: Campos Escobedo MD Neutrophil (Seg) 72 % High 36-65 [facility] Comment on above: Performed By: #### C DP, IOCAL, PT, PTT, BMP, MG, MAIKEL, TSHX #### [address] [address] Code And Test Clerk: Campos Escobedo MD NRBC Automated 0.0 per 100 WBC Normal 0.0 [facility] Comment on above: Performed By: #### C DP, IOCAL, PT, PTT, BMP, MG, MAIKEL, TSHX #### [address] [address] Code And Test Clerk: Campos Escobedo MD Platelet mean volume (Bld) [Entitic vol] 8.8 fL Normal 8.1-13.5 [facility] Comment on above: Performed By: #### C DP, IOCAL, PT, PTT, BMP, MG, MAIKEL, TSHX #### [address] [address] Code And Test Clerk: Campos Escobedo MD Platelets (Bld) [#/Vol] 612 10*3/uL High 138-453 [facility] Comment on above: Performed By: #### C DP, IOCAL, PT, PTT, BMP, MG, MAIKEL, TSHX #### [address] [address] Code And Test Clerk: Campos Escobedo MD RBC (Bld) [#/Vol] 3.77 10*6/uL Low 3.95-5.11 [facility] Comment on above: Performed By: #### C DP, IOCAL, PT, PTT, BMP, MG, MAIKEL, TSHX #### [address] [address] Code And Test Clerk: Campos Escobedo MD WBC (Bld) [#/Vol] 8.8 10*3/uL Normal 3.5-11.3 [facility] Comment on above: Performed By: #### C DP, IOCAL, PT, PTT, BMP, MG, MAIKEL, TSHX #### [place] [address] Code And Test Clerk: Campos Escobedo MD Auto Diff Performed NOT REPORTED Normal [facility] Comment on above: Performed By: #### C DP, IOCAL, PT, PTT, BMP, MG, MAIKEL, TSHX #### [address] [address] Code And Test Clerk: Campos Escobedo MD Platelets (Bld) [#/Vol] NOT REPORTED Normal [facility] Comment on above: Performed By: #### C DP, IOCAL, PT, PTT, BMP, MG, MAIKEL, TSHX #### [address] [address] Code And Test Clerk: Campos Escobedo MD RBC morphology finding Nom (Bld) NOT REPORTED Normal [facility] Comment on above: Performed By: #### C DP, IOCAL, PT, PTT, BMP, MG, MAIKEL, TSHX #### [address] [address] Code And Test Clerk: Campos Escobedo MD WBC Morphology NOT REPORTED Normal [facility] Comment on above: Performed By: #### C DP, IOCAL, PT, PTT, BMP, MG, MAIKEL, TSHX #### [facility] [address] [place] [address] [phone] Code And Test Clerk: Campos Escobedo MD Calcium, Ionicon 08-18-2019 Calcium [Mass/Vol] 1.14 mmol/L Normal 1.13-1.33 [facility] Comment on above: Performed By: #### C DP, TROPI, BMP, CRP, SED #### [facility] [employer] [address] [place] [address] [phone] Code And Test Clerk: Campos Escobedo MD Magnesiumon 08-18-2019 Magnesium [Mass/Vol] 2.1 mg/dL Normal 1.6-2.6 [facility] Comment on above: Performed By: #### C DP, IOCAL, PT, PTT, BMP, MG, MAIKEL, TSHX #### [facility] [employer] [address] [place] [id number] Code And Test Clerk: Campos Escobedo MD PTon 08-18-2019 INR Coag (PPP) [Relative time] 1.0 {INR} Normal [facility] Comment on above: Result Comment: Therapeutic Range: Moderate Anticoagulant Intensity: INR = 2.0-3.0 High Anticoagulant Intensity: INR = 2.5-3.5 Performed By: #### C DP, IOCAL, PT, PTT, BMP, MG, MAIKEL, TSHX #### [facility] [employer] [address] [place] [id number] Code And Test Clerk: Campos Escobedo MD PT Coag (PPP) [Time] 10.3 s Normal 9.0-12.0 [facility] Comment on above: Performed By: #### C DP, IOCAL, PT, PTT, BMP, MG, MAIKEL, TSHX #### [facility] [employer] [address] [place] [address] [phone] Code And Test Clerk: Campos Escobedo MD Phosphorus, Inorg.on 019 Phosphorus, Inorg. 3.4 mg/dL Normal 2.6-4.5 [facility] Comment on above: Performed By: #### C DP, IOCAL, PT, PTT, BMP, MG, MAIKEL, TSHX #### [address] [id number] Code And Test Clerk: Campos Escobedo MD APTTon 08-17-2019 aPTT Coag (Bld) [Time] 26.5 s Normal 20.5-30.5 [facility] Comment on above: Performed By: #### C DP, TROPI, BMP, CRP, SED #### [place] [id number] Code And Test Clerk: Campos Escobedo MD Basic Metabolic Profon 08-17 (cont.) Normal [facility] Comment on above: Result Comment: Aver age GFR for 60-69 years old: 85 mL/min/1.73sq m Chronic Kidney Disease: <60 mL/min/1.73sq m Kidney failure: <15 mL/min/1.73sq m eGFR calculated using average adult body mass. Additional eGFR calculator available at: http://www.[employer]/multiple_crcl_2012.htm Performed By: #### C DP, TROPI, BMP, CRP, SED #### [place] [id number] Code And Test Clerk: Campos Escobedo MD Anion gap [Moles/Vol] 11 mmol/L Normal 9-17 [facility] Comment on above: Performed By: #### C DP, TROPI, BMP, CRP, SED #### [facility] [employer] [address] [place] [address] [phone] Code And Test Clerk: Campos Escobedo MD Calcium [Mass/Vol] 8.6 mg/dL Normal 8.6-10.4 [facility] Comment on above: Performed By: #### C DP, TROPI, BMP, CRP, SED #### [address] [address] Code And Test Clerk: Campos Escobedo MD Chloride [Moles/Vol] 101 mmol/L Normal 98-107 [facility] Comment on above: Performed By: #### C DP, TROPI, BMP, CRP, SED #### [address] [address] Code And Test Clerk: Campos Escobedo MD CO2 [Moles/Vol] 27 mmol/L Normal 20-31 [facility] Comment on above: Performed By: #### C DP, TROPI, BMP, CRP, SED #### [address] [address] Code And Test Clerk: Campos Escobedo MD Creatinine [Mass/Vol] 0.57 mg/dL Normal 0.50-0.90 [facility] Comment on above: Performed By: #### C DP, TROPI, BMP, CRP, SED #### [address] [address] Code And Test Clerk: Campos Escobedo MD GFR, Amer >60 Normal >60 [facility] Comment on above: Performed By: #### C DP, TROPI, BMP, CRP, SED #### [address] [address] Code And Test Clerk: Campos Escobedo MD GFR,non Amer >60 Normal >60 [facility] Comment on above: Performed By: #### C DP, TROPI, BMP, CRP, SED #### [facility] [employer] [address] [place] [id number] Code And Test Clerk: Campos Escobedo MD Glucose [Mass/Vol] 178 mg/dL High 70-99 [facility] Comment on above: Performed By: #### C DP, TROPI, BMP, CRP, SED #### [address] [address] Code And Test Clerk: Campos Escobedo MD Potassium [Moles/Vol] 4.1 mmol/L Normal 3.7-5.3 [facility] Comment on above: Performed By: #### C DP, TROPI, BMP, CRP, SED #### [address] [address] Code And Test Clerk: Campos Escobedo MD Sodium [Moles/Vol] 139 mmol/L Normal 135-144 [facility] Comment on above: Performed By: #### C DP, TROPI, BMP, CRP, SED #### [address] [address] Code And Test Clerk: Campos Escobedo MD Urea nitrogen [Mass/Vol] 10 mg/dL Normal 8-23 [facility] Comment on above: Performed By: #### C DP, TROPI, BMP, CRP, SED #### [address] [address] Code And Test Clerk: Campos Escobedo MD BUN/CRE Ratio NOT REPORTED Normal -20 [facility] Comment on above: Performed By: #### C DP, TROPI, BMP, CRP, SED #### [address] [address] Code And Test Clerk: Campos Escobedo MD Staging: NOT REPORTED Normal [facility] Comment on above: Performed By: #### C DP, TROPI, BMP, CRP, SED #### [address] [address] Code And Test Clerk: Campos Escobedo MD CBC with Diffon 08-17-2019 Abs. Basophil 0.07 k/uL Normal 0.00-0.20 [facility] Comment on above: Performed By: #### C DP, TROPI, BMP, CRP, SED #### [facility] [employer] [address] [place] [phone] Code And Test Clerk: Campos Escobedo MD Abs.Imm.Granulocyte 0.11 k/uL Normal 0.00-0.30 [facility] Comment on above: Performed By: #### C DP, TROPI, BMP, CRP, SED #### [place] [address] Code And Test Clerk: Campos Escobedo MD Abs.Neutrophil (Seg) 6.28 k/uL Normal 1.50-8.10 [facility] Comment on above: Performed By: #### C DP, TROPI, BMP, CRP, SED #### [place] [address] Code And Test Clerk: Campos Escobedo MD Basophils/100 WBC (Bld) 1 % Normal 0-2 [facility] Comment on above: Performed By: #### C DP, TROPI, BMP, CRP, SED #### [place] [address] Code And Test Clerk: Campos Escobedo MD Eosinophils (Bld) [#/Vol] 0.43 10*3/uL Normal 0.00-0.44 [facility] Comment on above: Performed By: #### C DP, TROPI, BMP, CRP, SED #### [place] [address] Code And Test Clerk: Campos Escobedo MD Eosinophils/100 WBC (Bld) 5 % High 1-4 [facility] Comment on above: Performed By: #### C DP, TROPI, BMP, CRP, SED #### [place] [address] Code And Test Clerk: Campos Escobedo MD Erythrocyte distribution width (RBC) [Ratio] 12.7 % Normal 11.8-14.4 [facility] Comment on above: Performed By: #### C DP, TROPI, BMP, CRP, SED #### [address] [address] Code And Test Clerk: Campos Escobedo MD Hematocrit (Bld) [Volume fraction] 33.9 % Low 36.3-47.1 [facility] Comment on above: Performed By: #### C DP, TROPI, BMP, CRP, SED #### [place] [address] Code And Test Clerk: Campos Escobedo MD Hemoglobin (Bld) [Mass/Vol] 10.6 g/dL Low 11.9-15.1 [facility] Comment on above: Performed By: #### C DP, TROPI, BMP, CRP, SED #### [place] [address] Code And Test Clerk: Campos Escobedo MD Immature granulocytes (Bld) [#/Vol] 1 % High 0 [facility] Comment on above: Performed By: #### C DP, TROPI, BMP, CRP, SED #### [place] [address] Code And Test Clerk: Campos Escobedo MD Lymphocytes (Bld) [#/Vol] 1.70 10*3/uL Normal 1.10-3.70 [facility] Comment on above: Performed By: #### C DP, TROPI, BMP, CRP, SED #### [place] [address] Code And Test Clerk: Campos Escobedo MD Lymphocytes/100 WBC (Bld) 18 % Low 24-43 [facility] [facility] Comment on above: Performed By: #### C DP, TROPI, BMP, CRP, SED #### [place] [address] Code And Test Clerk: Campos Escobedo MD MCH (RBC) [Entitic mass] 30.3 pg Normal 25.2-33.5 [facility] Comment on above: Performed By: #### C DP, TROPI, BMP, CRP, SED #### [address] [address] Code And Test Clerk: Campos Escobedo MD MCHC (RBC) [Mass/Vol] 31.3 g/dL Normal 28.4-34.8 [facility] Comment on above: Performed By: #### C DP, TROPI, BMP, CRP, SED #### [address] [address] Code And Test Clerk: Campos Escobedo MD MCV (RBC) [Entitic vol] 96.9 fL Normal 82.6-102.9 [facility] Comment on above: Performed By: #### C DP, TROPI, BMP, CRP, SED #### [address] [address] Code And Test Clerk: Campos Escobedo MD Monocytes (Bld) [#/Vol] 0.98 10*3/uL Normal 0.10-1.20 [facility] Comment on above: Performed By: #### C DP, TROPI, BMP, CRP, SED #### [address] [address] Code And Test Clerk: Campos Escobedo MD Monocytes/100 WBC (Bld) 10 % Normal 3-12 [facility] Comment on above: Performed By: #### C DP, TROPI, BMP, CRP, SED #### [address] [address] Code And Test Clerk: Campos Escobedo MD Neutrophil (Seg) 65 % Normal 36-65 [facility] Comment on above: Performed By: #### C DP, TROPI, BMP, CRP, SED #### [address] [address] Code And Test Clerk: Campos Escobedo MD NRBC Automated 0.0 per 100 WBC Normal 0.0 [facility] Comment on above: Performed By: #### C DP, TROPI, BMP, CRP, SED #### [address] [address] Code And Test Clerk: Campos Escobedo MD Platelet mean volume (Bld) [Entitic vol] 9.1 fL Normal 8.1-13.5 [facility] Comment on above: Performed By: #### C DP, TROPI, BMP, CRP, SED #### [address] [address] Code And Test Clerk: Campos Escobedo MD Platelets (Bld) [#/Vol] 575 10*3/uL High 138-453 [facility] Comment on above: Performed By: #### C DP, TROPI, BMP, CRP, SED #### [address] [address] Code And Test Clerk: Campos Escobedo MD RBC (Bld) [#/Vol] 3.50 10*6/uL Low 3.95-5.11 [facility] Comment on above: Performed By: #### C DP, TROPI, BMP, CRP, SED #### [address] [address] Code And Test Clerk: Campos Escobedo MD WBC (Bld) [#/Vol] 9.6 10*3/uL Normal 3.5-11.3 [facility] Comment on above: Performed By: #### C DP, TROPI, BMP, CRP, SED #### [address] [address] Code And Test Clerk: Campos Escobedo MD Auto Diff Performed NOT REPORTED Normal [facility] Comment on above: Performed By: #### C DP, TROPI, BMP, CRP, SED #### [address] [address] Code And Test Clerk: Campos Escobedo MD Platelets (Bld) [#/Vol] NOT REPORTED Normal [facility] Comment on above: Performed By: #### C DP, TROPI, BMP, CRP, SED #### [facility] [employer] [address] [place] [phone] Code And Test Clerk: Campos Escobedo MD RBC morphology finding Nom (Bld) NOT REPORTED Normal [facility] Comment on above: Performed By: #### C DP, TROPI, BMP, CRP, SED #### [facility] [employer] [address] [place] [address] Code And Test Clerk: Campos Escobedo MD WBC Morphology NOT REPORTED Normal [facility] Comment on above: Performed By: #### C DP, TROPI, BMP, CRP, SED #### [facility] [address] [place] [address] Code And Test Clerk: Campos Escobedo MD Calcium, Ionicon 08-17-2019 Calcium [Mass/Vol] 1.14 mmol/L Normal 1.13-1.33 [facility] Comment on above: Performed By: #### C DP, TROPI, BMP, CRP, SED #### [facility] [employer] [address] [place] [phone] Code And Test Clerk: Campos Escobedo MD Magnesiumon 08-17-2019 Magnesium [Mass/Vol] 2.0 mg/dL Normal 1.6-2.6 [facility] Comment on above: Performed By: #### C DP, TROPI, BMP, CRP, SED #### [facility] [address] [place] [address] Code And Test Clerk: Campos Escobedo MD PTon 08-17-2019 INR Coag (PPP) [Relative time] 1.0 {INR} Normal [facility] Comment on above: Result Comment: Therapeutic Range: Moderate Anticoagulant Intensity: INR = 2.0-3.0 High Anticoagulant Intensity: INR = 2.5-3.5 Performed By: #### C DP, TROPI, BMP, CRP, SED #### [facility] [address] [place] [id number] Code And Test Clerk: Campos Escobedo MD PT Coag (PPP) [Time] 10.6 s Normal 9.0-12.0 [facility] Comment on above: Performed By: #### C DP, TROPI, BMP, CRP, SED #### [facility] [employer] [address] [place] [address] [phone] Code And Test Clerk: Campos Escobedo MD Phosphorus, Inorg.on 019 Phosphorus, Inorg. 3.6 mg/dL Normal 2.6-4.5 [facility] [place] Comment on above: Performed By: #### C DP, TROPI, BMP, CRP, SED #### [facility] [employer] [address] [place] [phone] Code And Test Clerk: Campos Escobedo MD XR CHEST (2 VW)on 08-17-2019 XR CHEST (2 VW) EXAMINATION: TWO XRAY VIEWS OF THE CHEST 08/17/2019 9:17 am COMPARISON: Chest radiograph dated 08/13/2019 HISTORY: ORDERING SYSTEM PROVIDED HISTORY: left lower lobe pneumonia TECHNOLOGIST PROVIDED HISTORY: Portable if pt not mobile left lower lobe pneumonia FINDINGS: No interval change of infiltrate at the left lung base. Stable moderate left pleural effusion. Mild atelectasis at the right lung base. Small right pleural effusion. Stable cardiomegaly. No pneumothorax. No free air IMPRESSION: No interval change of infiltrate at the left lung base. Stable moderate left pleural effusion. Mild atelectasis at the right lung base. Small right pleural effusion. Interpreted by: Olamide Fontanez MD Signed by: Olamide Fontanez MD 08/17/19 Final result Normal [facility] APTTon 08-16-2019 aPTT Coag (Bld) [Time] 24.5 s Normal 20.5-30.5 [facility] Comment on above: Performed By: #### C DP, TROPI, BMP, CRP, SED #### [facility] [employer] [address] [place] [address] [phone] Code And Test Clerk: Campos Escobedo MD Basic Metabolic Profon 11-01 -2019 (cont.) Normal [facility] Comment on above: Result Comment: Aver age GFR for 60-69 years old: 85 mL/min/1.73sq m Chronic Kidney Disease: <60 mL/min/1.73sq m Kidney failure: <15 mL/min/1.73sq m eGFR calculated using average adult body mass. Additional eGFR calculator available at: http://www.[employer]/multiple_crcl_2012.htm Performed By: #### C DP, TROPI, BMP, CRP, SED #### [facility] [address] [place] [id number] Code And Test Clerk: Campos Escobedo MD Anion gap [Moles/Vol] 14 mmol/L Normal 9-17 [facility] Comment on above: Performed By: #### C DP, TROPI, BMP, CRP, SED #### [facility] [employer] [address] [place] [phone] Code And Test Clerk: Campos Escobedo MD Calcium [Mass/Vol] 8.6 mg/dL Normal 8.6-10.4 [facility] Comment on above: Performed By: #### C DP, TROPI, BMP, CRP, SED #### [facility] [employer] [address] [place] [id number] Code And Test Clerk: Campos Escobedo MD Chloride [Moles/Vol] 102 mmol/L Normal 98-107 [facility] Comment on above: Performed By: #### C DP, TROPI, BMP, CRP, SED #### [facility] [address] [place] [address] Code And Test Clerk: Campos Escobedo MD CO2 [Moles/Vol] 21 mmol/L Normal 20-31 [facility] Comment on above: Performed By: #### C DP, TROPI, BMP, CRP, SED #### [facility] [address] [place] [address] Code And Test Clerk: Campos Escobedo MD Creatinine [Mass/Vol] 0.45 mg/dL Low 0.50-0.90 [facility] Comment on above: Performed By: #### C DP, TROPI, BMP, CRP, SED #### [address] [address] Code And Test Clerk: Campos Escobedo MD GFR, Amer >60 Normal >60 [facility] Comment on above: Performed By: #### C DP, TROPI, BMP, CRP, SED #### [address] [address] Code And Test Clerk: Campos Escobedo MD GFR,non Amer >60 Normal >60 [facility] Comment on above: Performed By: #### C DP, TROPI, BMP, CRP, SED #### [address] [address] Code And Test Clerk: Campos Escobedo MD Glucose [Mass/Vol] 191 mg/dL High 70-99 [facility] Comment on above: Performed By: #### C DP, TROPI, BMP, CRP, SED #### [address] [address] Code And Test Clerk: Campos Escobedo MD Potassium [Moles/Vol] 3.6 mmol/L Low 3.7-5.3 [facility] Comment on above: Performed By: #### C DP, TROPI, BMP, CRP, SED #### [facility] [employer] [address] [place] [phone] Code And Test Clerk: Campos Escobedo MD Sodium [Moles/Vol] 137 mmol/L Normal 135-144 [facility] Comment on above: Performed By: #### C DP, TROPI, BMP, CRP, SED #### [facility] [employer] [address] [place] [phone] Code And Test Clerk: Campos Escobedo MD Urea nitrogen [Mass/Vol] 8 mg/dL Normal 8-23 [facility] Comment on above: Performed By: #### C DP, TROPI, BMP, CRP, SED #### [place] [address] Code And Test Clerk: Campos Escobedo MD BUN/CRE Ratio NOT REPORTED Normal 9-20 [facility] Comment on above: Performed By: #### C DP, TROPI, BMP, CRP, SED #### [place] [address] Code And Test Clerk: Campos Escobedo MD Staging: NOT REPORTED Normal [facility] Comment on above: Performed By: #### C DP, TROPI, BMP, CRP, SED #### [place] [address] Code And Test Clerk: Campos Escobedo MD CBC with Diffon 08-16-2019 Abs. Basophil 0.08 k/uL Normal 0.00-0.20 [facility] Comment on above: Performed By: #### C DP, TROPI, BMP, CRP, SED #### [place] [address] Code And Test Clerk: Campos Escobedo MD Abs.Imm.Granulocyte 0.09 k/uL Normal 0.00-0.30 [facility] Comment on above: Performed By: #### C DP, TROPI, BMP, CRP, SED #### [place] [address] Code And Test Clerk: Campos Escobedo MD Abs.Neutrophil (Seg) 7.15 k/uL Normal 1.50-8.10 [facility] Comment on above: Performed By: #### C DP, TROPI, BMP, CRP, SED #### [place] [address] Code And Test Clerk: Campos Escobedo MD Basophils/100 WBC (Bld) 1 % Normal 0-2 [facility] Comment on above: Performed By: #### C DP, TROPI, BMP, CRP, SED #### [address] [address] Code And Test Clerk: Campos Escobedo MD Eosinophils (Bld) [#/Vol] 0.38 10*3/uL Normal 0.00-0.44 [facility] Comment on above: Performed By: #### C DP, TROPI, BMP, CRP, SED #### [place] [address] Code And Test Clerk: Campos Escobedo MD Eosinophils/100 WBC (Bld) 4 % Normal 1-4 [facility] Comment on above: Performed By: #### C DP, TROPI, BMP, CRP, SED #### [place] [address] Code And Test Clerk: Campos Escobedo MD Erythrocyte distribution width (RBC) [Ratio] 12.4 % Normal 11.8-14.4 [facility] Comment on above: Performed By: #### C DP, TROPI, BMP, CRP, SED #### [place] [address] Code And Test Clerk: Campos Escobedo MD Hematocrit (Bld) [Volume fraction] 34.5 % Low 36.3-47.1 [facility] Comment on above: Performed By: #### C DP, TROPI, BMP, CRP, SED #### [place] [address] Code And Test Clerk: Campos Escobedo MD Hemoglobin (Bld) [Mass/Vol] 10.8 g/dL Low 11.9-15.1 [facility] Comment on above: Performed By: #### C DP, TROPI, BMP, CRP, SED #### [place] [address] Code And Test Clerk: Campos Escobedo MD Immature granulocytes (Bld) [#/Vol] 1 % High 0 [facility] Comment on above: Performed By: #### C DP, TROPI, BMP, CRP, SED #### [address] [address] Code And Test Clerk: Campos Escobedo MD Lymphocytes (Bld) [#/Vol] 1.20 10*3/uL Normal 1.10-3.70 [facility] Comment on above: Performed By: #### C DP, TROPI, BMP, CRP, SED #### [address] [address] Code And Test Clerk: Campos Escobedo MD Lymphocytes/100 WBC (Bld) 12 % Low 24-43 [facility] Comment on above: Performed By: #### C DP, TROPI, BMP, CRP, SED #### [place] [address] Code And Test Clerk: Campos Escobedo MD MCH (RBC) [Entitic mass] 30.4 pg Normal 25.2-33.5 [facility] Comment on above: Performed By: #### C DP, TROPI, BMP, CRP, SED #### [address] [address] Code And Test Clerk: Campos Escobedo MD MCHC (RBC) [Mass/Vol] 31.3 g/dL Normal 28.4-34.8 [facility] Comment on above: Performed By: #### C DP, TROPI, BMP, CRP, SED #### [address] [address] Code And Test Clerk: Campos Escobedo MD MCV (RBC) [Entitic vol] 97.2 fL Normal 82.6-102.9 [facility] Comment on above: Performed By: #### C DP, TROPI, BMP, CRP, SED #### [address] [address] Code And Test Clerk: Campos Escobedo MD Monocytes (Bld) [#/Vol] 0.77 10*3/uL Normal 0.10-1.20 [facility] Comment on above: Performed By: #### C DP, TROPI, BMP, CRP, SED #### [address] [address] Code And Test Clerk: Campos Escobedo MD Monocytes/100 WBC (Bld) 8 % Normal 3-12 [facility] Comment on above: Performed By: #### C DP, TROPI, BMP, CRP, SED #### [address] [address] Code And Test Clerk: Campos Escobedo MD Neutrophil (Seg) 74 % High 36-65 [facility] Comment on above: Performed By: #### C DP, TROPI, BMP, CRP, SED #### [address] [address] Code And Test Clerk: Campos Escobedo MD NRBC Automated 0.0 per 100 WBC Normal 0.0 [facility] Comment on above: Performed By: #### C DP, TROPI, BMP, CRP, SED #### [address] [address] Code And Test Clerk: Campos Escobedo MD Platelet mean volume (Bld) [Entitic vol] 9.0 fL Normal 8.1-13.5 [facility] Comment on above: Performed By: #### C DP, TROPI, BMP, CRP, SED #### [address] [address] Code And Test Clerk: Campos Escobedo MD Platelets (Bld) [#/Vol] 560 10*3/uL High 138-453 [facility] Comment on above: Performed By: #### C DP, TROPI, BMP, CRP, SED #### [address] [address] Code And Test Clerk: Campos Escobedo MD RBC (Bld) [#/Vol] 3.55 10*6/uL Low 3.95-5.11 [facility] Comment on above: Performed By: #### C DP, TROPI, BMP, CRP, SED #### [address] [address] Code And Test Clerk: Campos Escobedo MD WBC (Bld) [#/Vol] 9.7 10*3/uL Normal 3.5-11.3 [facility] Comment on above: Performed By: #### C DP, TROPI, BMP, CRP, SED #### [address] [address] Code And Test Clerk: Campos Escobedo MD Auto Diff Performed NOT REPORTED Normal [facility] Comment on above: Performed By: #### C DP, TROPI, BMP, CRP, SED #### [address] [address] Code And Test Clerk: Campos Escobedo MD Platelets (Bld) [#/Vol] NOT REPORTED Normal [facility] Comment on above: Performed By: #### C DP, TROPI, BMP, CRP, SED #### [address] [address] Code And Test Clerk: Campos Escobedo MD RBC morphology finding Nom (Bld) NOT REPORTED Normal [facility] Comment on above: Performed By: #### C DP, TROPI, BMP, CRP, SED #### [address] [address] Code And Test Clerk: Campos Escobedo MD WBC Morphology NOT REPORTED Normal [facility] Comment on above: Performed By: #### C DP, TROPI, BMP, CRP, SED #### [address] [address] Code And Test Clerk: Campos Escobedo MD Calcium, Ionicon 08-16-2019 Calcium [Mass/Vol] 1.21 mmol/L Normal 1.13-1.33 [facility] Comment on above: Performed By: #### C DP, TROPI, BMP, CRP, SED #### [facility] [address] [place] [address] Code And Test Clerk: Campos Escobedo MD Magnesiumon 08-16-2019 Magnesium [Mass/Vol] 2.1 mg/dL Normal 1.6-2.6 [facility] Comment on above: Performed By: #### C DP, TROPI, BMP, CRP, SED #### [facility] [employer] [address] [place] [id number] Code And Test Clerk: Campos Escobedo MD Mycoplasma Ab, IgMon 019 Mycoplasma Ab, IgM 0.39 Normal <0.91 [facility] Comment on above: Result Comment: Reference Range: <=0.90 Negative 0.91-1.09 Equivocal >=1.10 Positive Performed By: #### C DP, TROPI, BMP, CRP, SED #### [facility] [employer] [address] [place] [phone] Code And Test Clerk: Campos Escobedo MD PTon 08-16-2019 INR Coag (PPP) [Relative time] 1.0 {INR} Normal [facility] Comment on above: Result Comment: Therapeutic Range: Moderate Anticoagulant Intensity: INR = 2.0-3.0 High Anticoagulant Intensity: INR = 2.5-3.5 Performed By: #### C DP, TROPI, BMP, CRP, SED #### [facility] [employer] [address] [place] [address] Code And Test Clerk: Campos Escobedo MD PT Coag (PPP) [Time] 10.7 s Normal 9.0-12.0 [facility] Comment on above: Performed By: #### C DP, TROPI, BMP, CRP, SED #### [facility] [address] [place] [address] Code And Test Clerk: Campos Escobedo MD Phosphorus, Inorg.on Phosphorus, Inorg. 3.3 mg/dL Normal 2.6-4.5 [facility] Comment on above: Performed By: #### C DP, TROPI, BMP, CRP, SED #### [address] [address] Code And Test Clerk: Campos Escobedo MD Specimen Rejectionon Reason for rejection Unable to perform testing: Specimen clotted. Normal [facility] Comment on above: Performed By: #### C DP, TROPI, BMP, CRP, SED #### [address] [address] Code And Test Clerk: Campos Escobedo MD Source of sample .BLOOD Normal [facility] Comment on above: Performed By: #### C DP, TROPI, BMP, CRP, SED #### [address] [address] Code And Test Clerk: Campos Escobedo MD Test ordered PT, PTT Normal [facility] Comment on above: Performed By: #### C DP, TROPI, BMP, CRP, SED #### [facility] [employer] [address] [place] [phone] Code And Test Clerk: Campos Escobedo MD ----- NOT REPORTED Normal [facility] Comment on above: Performed By: #### C DP, TROPI, BMP, CRP, SED #### [facility] [employer] [address] [place] [address] Code And Test Clerk: Campos Escobedo MD APTTon 08-15-2019 aPTT Coag (Bld) [Time] 27.3 s Normal 20.5-30.5 [facility] Comment on above: Performed By: #### C DP, TROPI, BMP, CRP, SED #### [facility] [employer] [address] [place] [phone] Code And Test Clerk: Campos Escobedo MD Basic Metabolic Profon 08-15 (cont.) Normal [facility] Comment on above: Result Comment: Aver age GFR for 60-69 years old: 85 mL/min/1.73sq m Chronic Kidney Disease: <60 mL/min/1.73sq m Kidney failure: <15 mL/min/1.73sq m eGFR calculated using average adult body mass. Additional eGFR calculator available at: http://www.[employer]/multiple_crcl_2012.htm Performed By: #### C DP, TROPI, BMP, CRP, SED #### [facility] [employer] [address] [place] [id number] Code And Test Clerk: Campos Escobedo MD Anion gap [Moles/Vol] 11 mmol/L Normal 9-17 [facility] Comment on above: Performed By: #### C DP, TROPI, BMP, CRP, SED #### [address] [address] Code And Test Clerk: Campos Escobedo MD Calcium [Mass/Vol] 8.1 mg/dL Low 8.6-10.4 [facility] Comment on above: Performed By: #### C DP, TROPI, BMP, CRP, SED #### [facility] [employer] [address] [place] [phone] Code And Test Clerk: Campos Escobedo MD Chloride [Moles/Vol] 103 mmol/L Normal 98-107 [facility] Comment on above: Performed By: #### C DP, TROPI, BMP, CRP, SED #### [facility] [employer] [address] [place] [address] Code And Test Clerk: Campos Escobedo MD CO2 [Moles/Vol] 23 mmol/L Normal 20-31 [facility] Comment on above: Performed By: #### C DP, TROPI, BMP, CRP, SED #### [facility] [employer] [address] [place] [address] Code And Test Clerk: Campos Escobedo MD Creatinine [Mass/Vol] 0.49 mg/dL Low 0.50-0.90 [facility] Comment on above: Performed By: #### C DP, TROPI, BMP, CRP, SED #### [address] [address] Code And Test Clerk: Campos Escobedo MD GFR, Amer >60 Normal >60 [facility] Comment on above: Performed By: #### C DP, TROPI, BMP, CRP, SED #### [facility] [employer] [address] [place] [address] Code And Test Clerk: Campos Escobedo MD GFR,non Amer >60 Normal >60 [facility] Comment on above: Performed By: #### C DP, TROPI, BMP, CRP, SED #### [address] [address] Code And Test Clerk: Campos Escobedo MD Glucose [Mass/Vol] 183 mg/dL High 70-99 [facility] Comment on above: Performed By: #### C DP, TROPI, BMP, CRP, SED #### [address] [address] Code And Test Clerk: Campos Escobedo MD Potassium [Moles/Vol] 3.6 mmol/L Low 3.7-5.3 [facility] Comment on above: Performed By: #### C DP, TROPI, BMP, CRP, SED #### [facility] [employer] [address] [place] [id number] Code And Test Clerk: Campos Escobedo MD Sodium [Moles/Vol] 137 mmol/L Normal 135-144 [facility] Comment on above: Performed By: #### C DP, TROPI, BMP, CRP, SED #### [facility] [employer] [address] [place] [id number] Code And Test Clerk: Campos Escobedo MD Urea nitrogen [Mass/Vol] 5 mg/dL Low 8-23 [facility] Comment on above: Performed By: #### C DP, TROPI, BMP, CRP, SED #### [address] [address] Code And Test Clerk: Campos Escobedo MD BUN/CRE Ratio NOT REPORTED Normal 07-05 [facility] Comment on above: Performed By: #### C DP, TROPI, BMP, CRP, SED #### [address] [address] Code And Test Clerk: Campos Escobedo MD Staging: NOT REPORTED Normal [facility] Comment on above: Performed By: #### C DP, TROPI, BMP, CRP, SED #### [address] [address] Code And Test Clerk: Campos Escobedo MD C-Reactive Proteinon 019 CRP [Mass/Vol] 169.1 mg/L High 0.0-5.0 [facility] Comment on above: Performed By: #### C DP, TROPI, BMP, CRP, SED #### [address] [address] Code And Test Clerk: Campos Escobedo MD CBC with Diffon 08-15-2019 Abs. Basophil 0.06 k/uL Normal 0.00-0.20 [facility] Comment on above: Performed By: #### C DP, TROPI, BMP, CRP, SED #### [address] [address] Code And Test Clerk: Campos Escobedo MD Abs.Imm.Granulocyte 0.10 k/uL Normal 0.00-0.30 [facility] Comment on above: Performed By: #### C DP, TROPI, BMP, CRP, SED #### [address] [address] Code And Test Clerk: Campos Escobedo MD Abs.Neutrophil (Seg) 7.41 k/uL Normal 1.50-8.10 [facility] Comment on above: Performed By: #### C DP, TROPI, BMP, CRP, SED #### [place] [address] Code And Test Clerk: Campos Escobedo MD Basophils/100 WBC (Bld) 1 % Normal 0-2 [facility] Comment on above: Performed By: #### C DP, TROPI, BMP, CRP, SED #### [place] [address] Code And Test Clerk: Campos Escobedo MD Eosinophils (Bld) [#/Vol] 0.38 10*3/uL Normal 0.00-0.44 [facility] [place] Comment on above: Performed By: #### C DP, TROPI, BMP, CRP, SED #### [place] [address] Code And Test Clerk: Campos Escobedo MD Eosinophils/100 WBC (Bld) 4 % Normal 1-4 [facility] [place] Comment on above: Performed By: #### C DP, TROPI, BMP, CRP, SED #### [place] [address] Code And Test Clerk: Campos Escobedo MD Erythrocyte distribution width (RBC) [Ratio] 12.4 % Normal 11.8-14.4 [facility] [place] Comment on above: Performed By: #### C DP, TROPI, BMP, CRP, SED #### [place] [address] Code And Test Clerk: Campos Escobedo MD Hematocrit (Bld) [Volume fraction] 31.0 % Low 36.3-47.1 [facility] [place] Comment on above: Performed By: #### C DP, TROPI, BMP, CRP, SED #### [place] [address] Code And Test Clerk: Campos Escobedo MD Hemoglobin (Bld) [Mass/Vol] 9.9 g/dL Low 11.9-15.1 [facility] [place] Comment on above: Performed By: #### C DP, TROPI, BMP, CRP, SED #### [address] [address] Code And Test Clerk: Campos Escobedo MD Immature granulocytes (Bld) [#/Vol] 1 % High 0 [facility] Comment on above: Performed By: #### C DP, TROPI, BMP, CRP, SED #### [address] [address] Code And Test Clerk: Campos Escobedo MD Lymphocytes (Bld) [#/Vol] 1.03 10*3/uL Low 1.10-3.70 [facility] [place] Comment on above: Performed By: #### C DP, TROPI, BMP, CRP, SED #### [address] [address] Code And Test Clerk: Campos Escobedo MD Lymphocytes/100 WBC (Bld) 11 % Low 24-43 [facility] [place] Comment on above: Performed By: #### C DP, TROPI, BMP, CRP, SED #### [address] [address] Code And Test Clerk: Campos Escobedo MD MCH (RBC) [Entitic mass] 30.9 pg Normal 25.2-33.5 [facility] [place] Comment on above: Performed By: #### C DP, TROPI, BMP, CRP, SED #### [facility] [employer] [address] [place] [address] Code And Test Clerk: Campos Escobedo MD MCHC (RBC) [Mass/Vol] 31.9 g/dL Normal 28.4-34.8 [facility] [place] Comment on above: Performed By: #### C DP, TROPI, BMP, CRP, SED #### [facility] [employer] [address] [place] [address] Code And Test Clerk: Campos Escobedo MD MCV (RBC) [Entitic vol] 96.9 fL Normal 82.6-102.9 [facility] [place] Comment on above: Performed By: #### C DP, TROPI, BMP, CRP, SED #### [address] [address] Code And Test Clerk: Campos Escobedo MD Monocytes (Bld) [#/Vol] 0.72 10*3/uL Normal 0.10-1.20 [facility] [place] Comment on above: Performed By: #### C DP, TROPI, BMP, CRP, SED #### [address] [address] Code And Test Clerk: Campos Escobedo MD Monocytes/100 WBC (Bld) 7 % Normal 3-12 [facility] [place] Comment on above: Performed By: #### C DP, TROPI, BMP, CRP, SED #### [address] [address] Code And Test Clerk: Campos Escobedo MD Neutrophil (Seg) 76 % High 36-65 [facility] Comment on above: Performed By: #### C DP, TROPI, BMP, CRP, SED #### [address] [address] Code And Test Clerk: Campos Escobedo MD NRBC Automated 0.0 per 100 WBC Normal 0.0 [facility] [place] Comment on above: Performed By: #### C DP, TROPI, BMP, CRP, SED #### [address] [address] Code And Test Clerk: Campos Escobedo MD Platelet mean volume (Bld) [Entitic vol] 8.8 fL Normal 8.1-13.5 [facility] [place] Comment on above: Performed By: #### C DP, TROPI, BMP, CRP, SED #### [address] [address] Code And Test Clerk: Campos Escobedo MD Platelets (Bld) [#/Vol] 486 10*3/uL High 138-453 [facility] [place] Comment on above: Performed By: #### C DP, TROPI, BMP, CRP, SED #### [address] [address] Code And Test Clerk: Campos Escobedo MD RBC (Bld) [#/Vol] 3.20 10*6/uL Low 3.95-5.11 [facility] Comment on above: Performed By: #### C DP, TROPI, BMP, CRP, SED #### [address] [address] Code And Test Clerk: Campos Escobedo MD WBC (Bld) [#/Vol] 9.7 10*3/uL Normal 3.5-11.3 [facility] [place] Comment on above: Performed By: #### C DP, TROPI, BMP, CRP, SED #### [address] [address] Code And Test Clerk: Campos Escobedo MD Auto Diff Performed NOT REPORTED Normal [facility] Comment on above: Performed By: #### C DP, TROPI, BMP, CRP, SED #### [address] [address] Code And Test Clerk: Campos Escobedo MD Platelets (Bld) [#/Vol] NOT REPORTED Normal [facility] Comment on above: Performed By: #### C DP, TROPI, BMP, CRP, SED #### [address] [address] Code And Test Clerk: Campos Escobedo MD RBC morphology finding Nom (Bld) NOT REPORTED Normal [facility] Comment on above: Performed By: #### C DP, TROPI, BMP, CRP, SED #### [facility] [employer] [address] [place] [address] Code And Test Clerk: Campos Escobdeo MD WBC Morphology NOT REPORTED Normal [facility] Comment on above: Performed By: #### C DP, TROPI, BMP, CRP, SED #### [facility] [employer] [address] [place] [id number] Code And Test Clerk: Campos Escobedo MD Calcium, Ionicon 08-15-2019 Calcium [Mass/Vol] 1.06 mmol/L Low 1.13-1.33 [facility] [place] Comment on above: Performed By: #### C DP, TROPI, BMP, CRP, SED #### [facility] [employer] [address] [place] [address] Code And Test Clerk: Campos Escobedo MD Magnesiumon 08-15-2019 Magnesium [Mass/Vol] 1.9 mg/dL Normal 1.6-2.6 [facility] Comment on above: Performed By: #### C DP, TROPI, BMP, CRP, SED #### [facility] [employer] [address] [place] [phone] Code And Test Clerk: Campos Escobedo MD PTon 08-15-2019 INR Coag (PPP) [Relative time] 1.0 {INR} Normal [facility] Comment on above: Result Comment: Therapeutic Range: Moderate Anticoagulant Intensity: INR = 2.0-3.0 High Anticoagulant Intensity: INR = 2.5-3.5 Performed By: #### C DP, TROPI, BMP, CRP, SED #### [facility] [employer] [address] [place] [address] Code And Test Clerk: Campos Escobedo MD PT Coag (PPP) [Time] 10.7 s Normal 9.0-12.0 [facility] Comment on above: Performed By: #### C DP, TROPI, BMP, CRP, SED #### [facility] [employer] [address] [place] [address] Code And Test Clerk: Campos Escobedo MD Phosphorus, Inorg.on 019 Phosphorus, Inorg. 2.9 mg/dL Normal 2.6-4.5 [facility] [place] Comment on above: Performed By: #### C DP, TROPI, BMP, CRP, SED #### [facility] [employer] [address] [place] [address] Code And Test Clerk: Campos Escobedo MD APTTon 08-14-2019 aPTT Coag (Bld) [Time] 26.3 s Normal 20.5-30.5 [facility] Comment on above: Performed By: #### C DP, TROPI, BMP, CRP, SED #### [place] [address] Code And Test Clerk: Campos Escobedo MD Basic Metabolic Profon 08-14 (cont.) Normal [facility] Comment on above: Result Comment: Aver age GFR for 60-69 years old: 85 mL/min/1.73sq m Chronic Kidney Disease: <60 mL/min/1.73sq m Kidney failure: <15 mL/min/1.73sq m eGFR calculated using average adult body mass. Additional eGFR calculator available at: http://www.[employer]/multiple_crcl_2012.htm Performed By: #### C DP, TROPI, BMP, CRP, SED #### [facility] [employer] [address] [place] [address] Code And Test Clerk: Campos Escobedo MD Anion gap [Moles/Vol] 13 mmol/L Normal 9-17 [facility] Comment on above: Performed By: #### C DP, TROPI, BMP, CRP, SED #### [facility] [employer] [address] [place] [address] Code And Test Clerk: Campos Escobedo MD Calcium [Mass/Vol] 8.1 mg/dL Low 8.6-10.4 [facility] Comment on above: Performed By: #### C DP, TROPI, BMP, CRP, SED #### [facility] [employer] [address] [place] [address] Code And Test Clerk: Campos Escobedo MD Chloride [Moles/Vol] 101 mmol/L Normal 98-107 [facility] Comment on above: Performed By: #### C DP, TROPI, BMP, CRP, SED #### [address] [address] Code And Test Clerk: Campos Escobedo MD CO2 [Moles/Vol] 23 mmol/L Normal 20-31 [facility] Comment on above: Performed By: #### C DP, TROPI, BMP, CRP, SED #### [address] [address] Code And Test Clerk: Campos Escobedo MD Creatinine [Mass/Vol] 0.56 mg/dL Normal 0.50-0.90 [facility] Comment on above: Performed By: #### C DP, TROPI, BMP, CRP, SED #### [facility] [employer] [address] [place] [id number] Code And Test Clerk: Campos Escobedo MD GFR, Amer >60 Normal >60 [facility] Comment on above: Performed By: #### C DP, TROPI, BMP, CRP, SED #### [facility] [employer] [address] [place] [address] Code And Test Clerk: Campos Escobedo MD GFR,non Amer >60 Normal >60 [facility] Comment on above: Performed By: #### C DP, TROPI, BMP, CRP, SED #### [facility] [employer] [address] [place] [address] Code And Test Clerk: Campos Escobedo MD Glucose [Mass/Vol] 164 mg/dL High 70-99 [facility] Comment on above: Performed By: #### C DP, TROPI, BMP, CRP, SED #### [facility] [employer] [address] [place] [address] Code And Test Clerk: Campos Escobedo MD Potassium [Moles/Vol] 3.8 mmol/L Normal 3.7-5.3 [facility] Comment on above: Performed By: #### C DP, TROPI, BMP, CRP, SED #### [address] [address] Code And Test Clerk: Campos Escobedo MD Sodium [Moles/Vol] 137 mmol/L Normal 135-144 [facility] Comment on above: Performed By: #### C DP, TROPI, BMP, CRP, SED #### [address] [address] Code And Test Clerk: Campos Escobedo MD Urea nitrogen [Mass/Vol] 7 mg/dL Low 8- [facility] Comment on above: Performed By: #### C DP, TROPI, BMP, CRP, SED #### [address] [address] Code And Test Clerk: Campos Escobedo MD BUN/CRE Ratio NOT REPORTED Normal - [facility] Comment on above: Performed By: #### C DP, TROPI, BMP, CRP, SED #### [address] [address] Code And Test Clerk: Campos Escobedo MD Staging: NOT REPORTED Normal [facility] Comment on above: Performed By: #### C DP, TROPI, BMP, CRP, SED #### [address] [address] Code And Test Clerk: Campos Escobedo MD CBC with Diffon 08-14-2019 Abs. Basophil 0.05 k/uL Normal 0.00-0.20 [facility] Comment on above: Performed By: #### C DP, TROPI, BMP, CRP, SED #### [facility] [employer] [address] [place] [address] Code And Test Clerk: Campos Escobedo MD Abs.Imm.Granulocyte 0.11 k/uL Normal 0.00-0.30 [facility] Comment on above: Performed By: #### C DP, TROPI, BMP, CRP, SED #### [place] [address] Code And Test Clerk: Campos Escobedo MD Abs.Neutrophil (Seg) 6.99 k/uL Normal 1.50-8.10 [facility] Comment on above: Performed By: #### C DP, TROPI, BMP, CRP, SED #### [place] [address] Code And Test Clerk: Campos Escobedo MD Basophils/100 WBC (Bld) 1 % Normal 0-2 [facility] Comment on above: Performed By: #### C DP, TROPI, BMP, CRP, SED #### [place] [address] Code And Test Clerk: Campos Escobedo MD Eosinophils (Bld) [#/Vol] 0.38 10*3/uL Normal 0.00-0.44 [facility] Comment on above: Performed By: #### C DP, TROPI, BMP, CRP, SED #### [place] [address] Code And Test Clerk: Campos Escobedo MD Eosinophils/100 WBC (Bld) 4 % Normal 1-4 [facility] Comment on above: Performed By: #### C DP, TROPI, BMP, CRP, SED #### [place] [address] Code And Test Clerk: Campos Escobedo MD Erythrocyte distribution width (RBC) [Ratio] 12.6 % Normal 11.8-14.4 [facility] Comment on above: Performed By: #### C DP, TROPI, BMP, CRP, SED #### [place] [address] Code And Test Clerk: Campos Escobedo MD Hematocrit (Bld) [Volume fraction] 31.7 % Low 36.3-47.1 [facility] Comment on above: Performed By: #### C DP, TROPI, BMP, CRP, SED #### [facility] [employer] [address] [place] [phone] Code And Test Clerk: Campos Escobedo MD Hemoglobin (Bld) [Mass/Vol] 9.9 g/dL Low 11.9-15.1 [facility] Comment on above: Performed By: #### C DP, TROPI, BMP, CRP, SED #### [facility] [employer] [address] [place] [address] Code And Test Clerk: Campos Escobedo MD Immature granulocytes (Bld) [#/Vol] 1 % High 0 [facility] Comment on above: Performed By: #### C DP, TROPI, BMP, CRP, SED #### [facility] [employer] [address] [place] [address] Code And Test Clerk: Campos Escobedo MD Lymphocytes (Bld) [#/Vol] 1.19 10*3/uL Normal 1.10-3.70 [facility] Comment on above: Performed By: #### C DP, TROPI, BMP, CRP, SED #### [facility] [employer] [address] [place] [address] Code And Test Clerk: Campos Escobedo MD Lymphocytes/100 WBC (Bld) 13 % Low 24-43 [facility] Comment on above: Performed By: #### C DP, TROPI, BMP, CRP, SED #### [facility] [employer] [address] [place] [address] Code And Test Clerk: Campos Escobedo MD MCH (RBC) [Entitic mass] 30.3 pg Normal 25.2-33.5 [facility] Comment on above: Performed By: #### C DP, TROPI, BMP, CRP, SED #### [facility] [employer] [address] [place] [address] Code And Test Clerk: Campos Escobedo MD MCHC (RBC) [Mass/Vol] 31.2 g/dL Normal 28.4-34.8 [facility] Comment on above: Performed By: #### C DP, TROPI, BMP, CRP, SED #### [address] [address] Code And Test Clerk: Campos Escobedo MD MCV (RBC) [Entitic vol] 96.9 fL Normal 82.6-102.9 [facility] Comment on above: Performed By: #### C DP, TROPI, BMP, CRP, SED #### [place] [address] Code And Test Clerk: Campos Escobedo MD Monocytes (Bld) [#/Vol] 0.79 10*3/uL Normal 0.10-1.20 [facility] Comment on above: Performed By: #### C DP, TROPI, BMP, CRP, SED #### [address] [address] Code And Test Clerk: Campos Escobedo MD Monocytes/100 WBC (Bld) 8 % Normal 3-12 [facility] Comment on above: Performed By: #### C DP, TROPI, BMP, CRP, SED #### [address] [address] Code And Test Clerk: Campos Escobedo MD Neutrophil (Seg) 73 % High 36-65 [facility] Comment on above: Performed By: #### C DP, TROPI, BMP, CRP, SED #### [address] [address] Code And Test Clerk: Campos Escobedo MD NRBC Automated 0.0 per 100 WBC Normal 0.0 [facility] Comment on above: Performed By: #### C DP, TROPI, BMP, CRP, SED #### [place] [address] Code And Test Clerk: Campos Escobedo MD Platelet mean volume (Bld) [Entitic vol] 8.8 fL Normal 8.1-13.5 [facility] Comment on above: Performed By: #### C DP, TROPI, BMP, CRP, SED #### [address] [address] Code And Test Clerk: Campos Escobedo MD Platelets (Bld) [#/Vol] 493 10*3/uL High 138-453 [facility] Comment on above: Performed By: #### C DP, TROPI, BMP, CRP, SED #### [address] [address] Code And Test Clerk: Campos Escobedo MD RBC (Bld) [#/Vol] 3.27 10*6/uL Low 3.95-5.11 [facility] Comment on above: Performed By: #### C DP, TROPI, BMP, CRP, SED #### [address] [address] Code And Test Clerk: Campos Escobedo MD WBC (Bld) [#/Vol] 9.5 10*3/uL Normal 3.5-11.3 [facility] Comment on above: Performed By: #### C DP, TROPI, BMP, CRP, SED #### [address] [address] Code And Test Clerk: Campos Escobedo MD Auto Diff Performed NOT REPORTED Normal [facility] Comment on above: Performed By: #### C DP, TROPI, BMP, CRP, SED #### [address] [address] Code And Test Clerk: Campos Escobedo MD Platelets (Bld) [#/Vol] NOT REPORTED Normal [facility] Comment on above: Performed By: #### C DP, TROPI, BMP, CRP, SED #### [address] [address] Code And Test Clerk: Campos Escobedo MD RBC morphology finding Nom (Bld) NOT REPORTED Normal [facility] Comment on above: Performed By: #### C DP, TROPI, BMP, CRP, SED #### [address] [address] Code And Test Clerk: Campos Escobedo MD WBC Morphology NOT REPORTED Normal [facility] Comment on above: Performed By: #### C DP, TROPI, BMP, CRP, SED #### [address] [address] Code And Test Clerk: Campos Escobedo MD Calcium, Ionicon 08-14-2019 Calcium [Mass/Vol] 1.09 mmol/L Low 1.13-1.33 [facility] Comment on above: Performed By: #### C DP, TROPI, BMP, CRP, SED #### [address] [address] Code And Test Clerk: Campos Escobedo MD Magnesiumon 08-14-2019 Magnesium [Mass/Vol] 1.8 mg/dL Normal 1.6-2.6 [facility] Comment on above: Performed By: #### C DP, TROPI, BMP, CRP, SED #### [address] [address] Code And Test Clerk: Campos Escobedo MD Mycoplasma Ab, IgMon 019 Mycoplasma Ab, IgM 0.40 Normal <0.91 [facility] Comment on above: Result Comment: Reference Range: <=0.90 Negative 0.91-1.09 Equivocal >=1.10 Positive Performed By: #### C DP, TROPI, BMP, CRP, SED #### [address] [address] Code And Test Clerk: Campos Escobedo MD PTon 08-14-2019 INR Coag (PPP) [Relative time] 1.0 {INR} Normal [facility] Comment on above: Result Comment: Therapeutic Range: Moderate Anticoagulant Intensity: INR = 2.0-3.0 High Anticoagulant Intensity: INR = 2.5-3.5 Performed By: #### C DP, TROPI, BMP, CRP, SED #### [address] [address] Code And Test Clerk: Campos Escobedo MD PT Coag (PPP) [Time] 10.7 s Normal 9.0-12.0 [facility] Comment on above: Performed By: #### C DP, TROPI, BMP, CRP, SED #### [address] [address] Code And Test Clerk: Campos Escobedo MD Phosphorus, Inorg.on 019 Phosphorus, Inorg. 3.1 mg/dL Normal 2.6-4.5 [facility] Comment on above: Performed By: #### C DP, TROPI, BMP, CRP, SED #### [facility] [employer] [address] [place] [address] Code And Test Clerk: Campos Escobedo MD APTTon 08-13-2019 aPTT Coag (Bld) [Time] 26.0 s Normal 20.5-30.5 [facility] Comment on above: Performed By: #### C DP, IOCAL, PT, PTT, BMP, MG, MAIKEL, TSHX #### [facility] [employer] [address] [place] [address] Code And Test Clerk: Campos Escobedo MD Basic Metabolic Profon 08-13 (cont.) Normal [facility] Comment on above: Result Comment: Aver age GFR for 60-69 years old: 85 mL/min/1.73sq m Chronic Kidney Disease: <60 mL/min/1.73sq m Kidney failure: <15 mL/min/1.73sq m eGFR calculated using average adult body mass. Additional eGFR calculator available at: http://www.[employer]/multiple_crcl_2011.htm Performed By: #### C DP, IOCAL, PT, PTT, BMP, MG, MAIKEL, TSHX #### [address] [address] Code And Test Clerk: Campos Escobedo MD Anion gap [Moles/Vol] 14 mmol/L Normal 9-17 [facility] Comment on above: Performed By: #### C DP, IOCAL, PT, PTT, BMP, MG, MAIKEL, TSHX #### [address] [address] Code And Test Clerk: Campos Escobedo MD Calcium [Mass/Vol] 8.3 mg/dL Low 8.6-10.4 [facility] Comment on above: Performed By: #### C DP, IOCAL, PT, PTT, BMP, MG, MAIKEL, TSHX #### [place] [address] Code And Test Clerk: Campos Escobedo MD Chloride [Moles/Vol] 97 mmol/L Low 98-107 [facility] Comment on above: Performed By: #### C DP, IOCAL, PT, PTT, BMP, MG, MAIKEL, TSHX #### [address] [address] Code And Test Clerk: Campos Escobedo MD CO2 [Moles/Vol] 23 mmol/L Normal 20-31 [facility] Comment on above: Performed By: #### C DP, IOCAL, PT, PTT, BMP, MG, MAIKEL, TSHX #### [address] [address] Code And Test Clerk: Campos Escobedo MD Creatinine [Mass/Vol] 0.51 mg/dL Normal 0.50-0.90 [facility] Comment on above: Performed By: #### C DP, IOCAL, PT, PTT, BMP, MG, MAIKEL, TSHX #### [address] [address] Code And Test Clerk: Campos Escobedo MD GFR, Amer >60 Normal >60 [facility] Comment on above: Performed By: #### C DP, IOCAL, PT, PTT, BMP, MG, MAIKEL, TSHX #### [address] [address] Code And Test Clerk: Campos Escobedo MD GFR,non Amer >60 Normal >60 [facility] Comment on above: Performed By: #### C DP, IOCAL, PT, PTT, BMP, MG, MAIKEL, TSHX #### [address] [address] Code And Test Clerk: Campos Escobedo MD Glucose [Mass/Vol] 192 mg/dL High 70-99 [facility] Comment on above: Performed By: #### C DP, IOCAL, PT, PTT, BMP, MG, MAIKEL, TSHX #### [address] [address] Code And Test Clerk: Campos Escobedo MD Potassium [Moles/Vol] 3.3 mmol/L Low 3.7-5.3 [facility] Comment on above: Performed By: #### C DP, IOCAL, PT, PTT, BMP, MG, MAIKEL, TSHX #### [address] [address] Code And Test Clerk: Campos Escobedo MD Sodium [Moles/Vol] 134 mmol/L Low 135-144 [facility] Comment on above: Performed By: #### C DP, IOCAL, PT, PTT, BMP, MG, MAIKEL, TSHX #### [address] [address] Code And Test Clerk: Campos Escobedo MD Urea nitrogen [Mass/Vol] 8 mg/dL Normal 8-23 [facility] Comment on above: Performed By: #### C DP, IOCAL, PT, PTT, BMP, MG, MAIKEL, TSHX #### [address] [address] Code And Test Clerk: Campos Escobedo MD BUN/CRE Ratio NOT REPORTED Normal - [facility] Comment on above: Performed By: #### C DP, IOCAL, PT, PTT, BMP, MG, MAIKEL, TSHX #### [address] [address] Code And Test Clerk: Campos Escobedo MD Staging: NOT REPORTED Normal [facility] Comment on above: Performed By: #### C DP, IOCAL, PT, PTT, BMP, MG, MAIKEL, TSHX #### [address] [address] Code And Test Clerk: Campos Escobedo MD Anion gap [Moles/Vol] 15 mmol/L Normal - [facility] Comment on above: Performed By: #### C DP, TROPI, BMP, CRP, SED #### [address] [address] Code And Test Clerk: Campos Escobedo MD Calcium [Mass/Vol] 8.4 mg/dL Low 8.6-10.4 [facility] Comment on above: Performed By: #### C DP, TROPI, BMP, CRP, SED #### [address] [address] Code And Test Clerk: Campos Escobedo MD Chloride [Moles/Vol] 98 mmol/L Normal 98-107 [facility] Comment on above: Performed By: #### C DP, TROPI, BMP, CRP, SED #### [address] [address] Code And Test Clerk: Campos Escobedo MD CO2 [Moles/Vol] 24 mmol/L Normal 20-31 [facility] Comment on above: Performed By: #### C DP, TROPI, BMP, CRP, SED #### [address] [address] Code And Test Clerk: Campos Escobedo MD Creatinine [Mass/Vol] 0.53 mg/dL Normal 0.50-0.90 [facility] Comment on above: Performed By: #### C DP, TROPI, BMP, CRP, SED #### [address] [address] Code And Test Clerk: Campos Escobedo MD GFR, Amer >60 Normal >60 [facility] Comment on above: Performed By: #### C DP, TROPI, BMP, CRP, SED #### [address] [address] Code And Test Clerk: Campos Escobedo MD GFR,non Amer >60 Normal >60 [facility] Comment on above: Performed By: #### C DP, TROPI, BMP, CRP, SED #### [address] [address] Code And Test Clerk: Campos Escobedo MD Glucose [Mass/Vol] 169 mg/dL High 70-99 [facility] [place] Comment on above: Performed By: #### C DP, TROPI, BMP, CRP, SED #### [address] [address] Code And Test Clerk: Campos Escobedo MD Potassium [Moles/Vol] 3.3 mmol/L Low 3.7-5.3 [facility] [place] Comment on above: Performed By: #### C DP, TROPI, BMP, CRP, SED #### [address] [address] Code And Test Clerk: Campos Escobedo MD Sodium [Moles/Vol] 137 mmol/L Normal 135-144 [facility] [place] Comment on above: Performed By: #### C DP, TROPI, BMP, CRP, SED #### [facility] [employer] [address] [place] [address] [place] [address] Code And Test Clerk: Campos Escobedo MD Urea nitrogen [Mass/Vol] 8 mg/dL Normal 8-23 [facility] [place] Comment on above: Performed By: #### C DP, TROPI, BMP, CRP, SED #### [address] [address] Code And Test Clerk: Campos Escobedo MD (cont.) Normal [facility] [place] Comment on above: Result Comment: Aver age GFR for 60-69 years old: 85 mL/min/1.73sq m Chronic Kidney Disease: <60 mL/min/1.73sq m Kidney failure: <15 mL/min/1.73sq m eGFR calculated using average adult body mass. Additional eGFR calculator available at: http://www.[employer]/multiple_crcl_2012.htm Performed By: #### C DP, TROPI, BMP, CRP, SED #### [address] [address] Code And Test Clerk: Campos Escobedo MD BUN/CRE Ratio NOT REPORTED Normal - [facility] [place] Comment on above: Performed By: #### C DP, TROPI, BMP, CRP, SED #### [facility] [employer] [address] [place] [address] Code And Test Clerk: Campos Escobedo MD Staging: NOT REPORTED Normal [facility] [place] Comment on above: Performed By: #### C DP, TROPI, BMP, CRP, SED #### [facility] [employer] [address] [place] [address] Code And Test Clerk: Campos Escobedo MD C-Reactive Proteinon 10-29- 019 CRP [Mass/Vol] 169.2 mg/L High 0.0-5.0 [facility] [place] Comment on above: Performed By: #### C DP, TROPI, BMP, CRP, SED #### [facility] [employer] [address] [place] [address] Code And Test Clerk: Campos Escobedo MD CBC with Diffon 08-13-2019 Abs. Basophil 0.06 k/uL Normal 0.00-0.20 [facility] [place] Comment on above: Performed By: #### C DP, IOCAL, PT, PTT, BMP, MG, MAIKEL, TSHX #### [place] [address] Code And Test Clerk: Campos Escobedo MD Abs.Imm.Granulocyte 0.08 k/uL Normal 0.00-0.30 [facility] [place] Comment on above: Performed By: #### C DP, IOCAL, PT, PTT, BMP, MG, MAIKEL, TSHX #### [place] [address] Code And Test Clerk: Campos Escobedo MD Abs.Neutrophil (Seg) 7.45 k/uL Normal 1.50-8.10 [facility] Comment on above: Performed By: #### C DP, IOCAL, PT, PTT, BMP, MG, MAIKEL, TSHX #### [place] [address] Code And Test Clerk: Campos Escobedo MD Basophils/100 WBC (Bld) 1 % Normal 0-2 [facility] [place] Comment on above: Performed By: #### C DP, IOCAL, PT, PTT, BMP, MG, MAIKEL, TSHX #### [place] [address] Code And Test Clerk: Campos Escobedo MD Eosinophils (Bld) [#/Vol] 0.35 10*3/uL Normal 0.00-0.44 [facility] [place] Comment on above: Performed By: #### C DP, IOCAL, PT, PTT, BMP, MG, MAIKEL, TSHX #### [address] [address] Code And Test Clerk: Campos Escobedo MD Eosinophils/100 WBC (Bld) 4 % Normal 1-4 [facility] [place] Comment on above: Performed By: #### C DP, IOCAL, PT, PTT, BMP, MG, MAIKEL, TSHX #### [place] [address] Code And Test Clerk: Campos Escobedo MD Erythrocyte distribution width (RBC) [Ratio] 12.4 % Normal 11.8-14.4 [facility] [place] Comment on above: Performed By: #### C DP, IOCAL, PT, PTT, BMP, MG, MAIKEL, TSHX #### [place] [address] Code And Test Clerk: Campos Escobedo MD Hematocrit (Bld) [Volume fraction] 33.5 % Low 36.3-47.1 [facility] [place] Comment on above: Performed By: #### C DP, IOCAL, PT, PTT, BMP, MG, MAIKEL, TSHX #### [place] [address] Code And Test Clerk: Campos Escobedo MD Hemoglobin (Bld) [Mass/Vol] 10.6 g/dL Low 11.9-15.1 [facility] [place] Comment on above: Performed By: #### C DP, IOCAL, PT, PTT, BMP, MG, MAIKEL, TSHX #### [place] [address] Code And Test Clerk: Campos Escobedo MD Immature granulocytes (Bld) [#/Vol] 1 % High 0 [facility] [place] Comment on above: Performed By: #### C DP, IOCAL, PT, PTT, BMP, MG, MAIKEL, TSHX #### [place] [address] Code And Test Clerk: Campos Escobedo MD Lymphocytes (Bld) [#/Vol] 1.20 10*3/uL Normal 1.10-3.70 [facility] [place] Comment on above: Performed By: #### C DP, IOCAL, PT, PTT, BMP, MG, MAIKEL, TSHX #### [address] [address] Code And Test Clerk: Campos Escobedo MD Lymphocytes/100 WBC (Bld) 12 % Low 24-43 [facility] [place] Comment on above: Performed By: #### C DP, IOCAL, PT, PTT, BMP, MG, MAIKEL, TSHX #### [address] [address] Code And Test Clerk: Campos Escobedo MD MCH (RBC) [Entitic mass] 30.1 pg Normal 25.2-33.5 [facility] [place] Comment on above: Performed By: #### C DP, IOCAL, PT, PTT, BMP, MG, MAIKEL, TSHX #### [address] [address] Code And Test Clerk: Campos Escobedo MD MCHC (RBC) [Mass/Vol] 31.6 g/dL Normal 28.4-34.8 [facility] [place] Comment on above: Performed By: #### C DP, IOCAL, PT, PTT, BMP, MG, MAIKEL, TSHX #### [address] [address] Code And Test Clerk: Campos Escobedo MD MCV (RBC) [Entitic vol] 95.2 fL Normal 82.6-102.9 [facility] [place] Comment on above: Performed By: #### C DP, IOCAL, PT, PTT, BMP, MG, MAIKEL, TSHX #### [address] [address] Code And Test Clerk: Campos Escobedo MD Monocytes (Bld) [#/Vol] 0.83 10*3/uL Normal 0.10-1.20 [facility] [place] Comment on above: Performed By: #### C DP, IOCAL, PT, PTT, BMP, MG, MAIKEL, TSHX #### [address] [address] Code And Test Clerk: Campos Escobedo MD Monocytes/100 WBC (Bld) 8 % Normal 3-12 [facility] [place] Comment on above: Performed By: #### C DP, IOCAL, PT, PTT, BMP, MG, MAIKEL, TSHX #### [address] [address] Code And Test Clerk: Campos Escobedo MD Neutrophil (Seg) 74 % High 36-65 [facility] Comment on above: Performed By: #### C DP, IOCAL, PT, PTT, BMP, MG, MAIKEL, TSHX #### [address] [address] Code And Test Clerk: Campos Escobedo MD NRBC Automated 0.0 per 100 WBC Normal 0.0 [facility] [place] Comment on above: Performed By: #### C DP, IOCAL, PT, PTT, BMP, MG, MAIKEL, TSHX #### [address] [address] Code And Test Clerk: Campos Escobedo MD Platelet mean volume (Bld) [Entitic vol] 9.1 fL Normal 8.1-13.5 [facility] [place] Comment on above: Performed By: #### C DP, IOCAL, PT, PTT, BMP, MG, MAIKEL, TSHX #### [address] [address] Code And Test Clerk: Campos Escobedo MD Platelets (Bld) [#/Vol] 487 10*3/uL High 138-453 [facility] [place] Comment on above: Performed By: #### C DP, IOCAL, PT, PTT, BMP, MG, MAIKEL, TSHX #### [address] [address] Code And Test Clerk: Campos Escobedo MD RBC (Bld) [#/Vol] 3.52 10*6/uL Low 3.95-5.11 [facility] [place] Comment on above: Performed By: #### C DP, IOCAL, PT, PTT, BMP, MG, MAIKEL, TSHX #### [address] [address] Code And Test Clerk: Campos Escobedo MD WBC (Bld) [#/Vol] 10.0 10*3/uL Normal 3.5-11.3 [facility] [place] Comment on above: Performed By: #### C DP, IOCAL, PT, PTT, BMP, MG, MAIKEL, TSHX #### [address] [address] Code And Test Clerk: Campos Escobedo MD Auto Diff Performed NOT REPORTED Normal [facility] Comment on above: Performed By: #### C DP, IOCAL, PT, PTT, BMP, MG, MAIKEL, TSHX #### [place] [address] Code And Test Clerk: Campos Escobedo MD Platelets (Bld) [#/Vol] NOT REPORTED Normal [facility] [place] Comment on above: Performed By: #### C DP, IOCAL, PT, PTT, BMP, MG, MAIKEL, TSHX #### [address] [address] Code And Test Clerk: Campos Escobedo MD RBC morphology finding Nom (Bld) NOT REPORTED Normal [facility] [place] Comment on above: Performed By: #### C DP, IOCAL, PT, PTT, BMP, MG, MAIKEL, TSHX #### [address] [address] Code And Test Clerk: Campos Escobedo MD WBC Morphology NOT REPORTED Normal [facility] Comment on above: Performed By: #### C DP, IOCAL, PT, PTT, BMP, MG, MAIKEL, TSHX #### [address] [address] Code And Test Clerk: Campos Escobedo MD Abs. Basophil 0.06 k/uL Normal 0.00-0.20 [facility] [place] Comment on above: Performed By: #### C DP, TROPI, BMP, CRP, SED #### [place] [address] Code And Test Clerk: Campos Escobedo MD Abs.Imm.Granulocyte 0.08 k/uL Normal 0.00-0.30 [facility] [place] Comment on above: Performed By: #### C DP, TROPI, BMP, CRP, SED #### [place] [address] Code And Test Clerk: Campos Escobedo MD Abs.Neutrophil (Seg) 6.97 k/uL Normal 1.50-8.10 [facility] Comment on above: Performed By: #### C DP, TROPI, BMP, CRP, SED #### [place] [address] Code And Test Clerk: Campos Escobedo MD Basophils/100 WBC (Bld) 1 % Normal 0-2 [facility] [place] Comment on above: Performed By: #### C DP, TROPI, BMP, CRP, SED #### [place] [address] Code And Test Clerk: Campos Escobedo MD Eosinophils (Bld) [#/Vol] 0.35 10*3/uL Normal 0.00-0.44 [facility] [place] Comment on above: Performed By: #### C DP, TROPI, BMP, CRP, SED #### [address] [address] Code And Test Clerk: Campos Escobedo MD Eosinophils/100 WBC (Bld) 4 % Normal 1-4 [facility] [place] Comment on above: Performed By: #### C DP, TROPI, BMP, CRP, SED #### [address] [address] Code And Test Clerk: Campos Escobedo MD Erythrocyte distribution width (RBC) [Ratio] 12.5 % Normal 11.8-14.4 [facility] [place] Comment on above: Performed By: #### C DP, TROPI, BMP, CRP, SED #### [address] [address] Code And Test Clerk: Campos Escobedo MD Hematocrit (Bld) [Volume fraction] 32.3 % Low 36.3-47.1 [facility] [place] Comment on above: Performed By: #### C DP, TROPI, BMP, CRP, SED #### [address] [address] Code And Test Clerk: Campos Escobedo MD Hemoglobin (Bld) [Mass/Vol] 10.6 g/dL Low 11.9-15.1 [facility] [place] Comment on above: Performed By: #### C DP, TROPI, BMP, CRP, SED #### [place] [address] Code And Test Clerk: Campos Escobedo MD Immature granulocytes (Bld) [#/Vol] 1 % High 0 [facility] [place] Comment on above: Performed By: #### C DP, TROPI, BMP, CRP, SED #### [address] [address] Code And Test Clerk: Campos Escobedo MD Lymphocytes (Bld) [#/Vol] 1.62 10*3/uL Normal 1.10-3.70 [facility] [place] Comment on above: Performed By: #### C DP, TROPI, BMP, CRP, SED #### [address] [address] Code And Test Clerk: Campos Escobedo MD Lymphocytes/100 WBC (Bld) 16 % Low 24-43 [facility] [place] Comment on above: Performed By: #### C DP, TROPI, BMP, CRP, SED #### [address] [address] Code And Test Clerk: Campos Escobedo MD MCH (RBC) [Entitic mass] 30.9 pg Normal 25.2-33.5 [facility] [place] Comment on above: Performed By: #### C DP, TROPI, BMP, CRP, SED #### [address] [address] Code And Test Clerk: Campos Escobedo MD MCHC (RBC) [Mass/Vol] 32.8 g/dL Normal 28.4-34.8 [facility] Comment on above: Performed By: #### C DP, TROPI, BMP, CRP, SED #### [address] [address] Code And Test Clerk: Campos Escobedo MD MCV (RBC) [Entitic vol] 94.2 fL Normal 82.6-102.9 [facility] Comment on above: Performed By: #### C DP, TROPI, BMP, CRP, SED #### [place] [address] Code And Test Clerk: Campos Escobedo MD Monocytes (Bld) [#/Vol] 0.96 10*3/uL Normal 0.10-1.20 [facility] [place] Comment on above: Performed By: #### C DP, TROPI, BMP, CRP, SED #### [address] [address] Code And Test Clerk: Campos Escobedo MD Monocytes/100 WBC (Bld) 10 % Normal 3-12 [facility] [place] Comment on above: Performed By: #### C DP, TROPI, BMP, CRP, SED #### [address] [address] Code And Test Clerk: Campos Escobedo MD Neutrophil (Seg) 68 % High 36-65 [facility] Comment on above: Performed By: #### C DP, TROPI, BMP, CRP, SED #### [place] [address] Code And Test Clerk: Campos Escobedo MD NRBC Automated 0.0 per 100 WBC Normal 0.0 [facility] [place] Comment on above: Performed By: #### C DP, TROPI, BMP, CRP, SED #### [address] [address] Code And Test Clerk: Campos Escobedo MD Platelet mean volume (Bld) [Entitic vol] 8.7 fL Normal 8.1-13.5 [facility] [place] Comment on above: Performed By: #### C DP, TROPI, BMP, CRP, SED #### [place] [address] Code And Test Clerk: Campos Escobedo MD Platelets (Bld) [#/Vol] 460 10*3/uL High 138-453 [facility] [place] Comment on above: Performed By: #### C DP, TROPI, BMP, CRP, SED #### [place] [address] Code And Test Clerk: Campos Escobedo MD RBC (Bld) [#/Vol] 3.43 10*6/uL Low 3.95-5.11 [facility] [place] Comment on above: Performed By: #### C DP, TROPI, BMP, CRP, SED #### [address] [address] Code And Test Clerk: Campos Escobedo MD WBC (Bld) [#/Vol] 10.0 10*3/uL Normal 3.5-11.3 [facility] [place] Comment on above: Performed By: #### C DP, TROPI, BMP, CRP, SED #### [address] [address] Code And Test Clerk: Campos Escobedo MD Auto Diff Performed NOT REPORTED Normal [facility] Comment on above: Performed By: #### C DP, TROPI, BMP, CRP, SED #### [address] [address] Code And Test Clerk: Campos Escobedo MD Platelets (Bld) [#/Vol] NOT REPORTED Normal [facility] Comment on above: Performed By: #### C DP, TROPI, BMP, CRP, SED #### [address] [address] Code And Test Clerk: Campos Escobedo MD RBC morphology finding Nom (Bld) NOT REPORTED Normal [facility] Comment on above: Performed By: #### C DP, TROPI, BMP, CRP, SED #### [address] [address] Code And Test Clerk: Campos Escobedo MD WBC Morphology NOT REPORTED Normal [facility] Comment on above: Performed By: #### C DP, TROPI, BMP, CRP, SED #### [address] [address] Code And Test Clerk: Campos Escobedo MD Calcium, Ionicon 08-13-2019 Calcium [Mass/Vol] 1.08 mmol/L Low 1.13-1.33 [facility] [place] Comment on above: Performed By: #### C DP, IOCAL, PT, PTT, BMP, MG, MAIKEL, TSHX #### [address] [address] Code And Test Clerk: Campos Escobedo MD Flu A/B Ag Detectionon 08-13 Flu A/B Ag Detection Specimen Descriptio n .NASOPHARYNGEAL SWAB Special Requests NOT REPORTED Direct Exam PRESUMPTIVE NEGATIVE for Influenza A + B antigens. PCR testing to confirm this result is available upon request. Specimen will be saved in the laboratory for 7 days. Please call [phone] if PCR testing is indicated. Report Status FINAL 08/13/2019 Normal [facility] Comment on above: Performed By: #### C DP, TROPI, BMP, CRP, SED #### [address] [address] Code And Test Clerk: Campos Escobedo MD MRSA, DNA, Nasalon 9 MRSA, DNA, Nasal NEGATIVE: MRSA DNA n ot detected by nucleic acid amplification. Normal NMRSAA [facility] Comment on above: Result Comment: Results should be used as an adjunct to nosocomial control efforts to identify patients needing enhanced precautions. The test is not intended to identify patients with staphylococcal infections. Results should not be used to guide or monitor treatment for MRSA infections. Performed By: #### C DP, TROPI, BMP, CRP, SED #### [facility] [address] [place] [id number] Code And Test Clerk: Campos Escobedo MD Specimen Description .NASAL SWAB Normal [facility] Comment on above: Performed By: #### C DP, TROPI, BMP, CRP, SED #### [facility] [employer] [address] [place] [address] Code And Test Clerk: Campos Escobedo MD Magnesiumon 08-13-2019 Magnesium [Mass/Vol] 1.8 mg/dL Normal 1.6-2.6 [facility] Comment on above: Performed By: #### C DP, TROPI, BMP, CRP, SED #### [facility] [employer] [address] [place] [address] Code And Test Clerk: Campos Escobedo MD PTon 08-13-2019 INR Coag (PPP) [Relative time] 1.0 {INR} Normal [facility] Comment on above: Result Comment: Therapeutic Range: Moderate Anticoagulant Intensity: INR = 2.0-3.0 High Anticoagulant Intensity: INR = 2.5-3.5 Performed By: #### C DP, IOCAL, PT, PTT, BMP, MG, MAIKEL, TSHX #### [facility] [employer] [address] [place] [address] Code And Test Clerk: Campos Escobedo MD PT Coag (PPP) [Time] 11.0 s Normal 9.0-12.0 [facility] Comment on above: Performed By: #### C DP, IOCAL, PT, PTT, BMP, MG, MAIKEL, TSHX #### [facility] [employer] [address] [place] [address] Code And Test Clerk: Campos Escobedo MD Phosphorus, Inorg.on 019 Phosphorus, Inorg. 2.8 mg/dL Normal 2.6-4.5 [facility] Comment on above: Performed By: #### C DP, TROPI, BMP, CRP, SED #### [facility] [employer] [address] [place] [address] Code And Test Clerk: Campos Escobedo MD Sedimentation Rateon 019 Sedimentation Rate 104 mm High 0-20 [facility] Comment on above: Performed By: #### C DP, TROPI, BMP, CRP, SED #### [facility] [employer] [address] [place] [address] Code And Test Clerk: Campos Escobedo MD TSH w/reflex to FT4on 2018 TSH Qn 4.54 m[IU]/L Normal 0.30-5.00 [facility] Comment on above: Performed By: #### C DP, TROPI, BMP, CRP, SED #### [facility] [employer] [address] [place] [address] Code And Test Clerk: Campos Escobedo MD Troponinon 08-13-2019 Troponin I.cardiac [Mass/Vol] 6 ng/L Normal 0-14 [facility] Comment on above: Result Comment: High Sensitivity Troponin values cannot be compared with other Troponin methodologies. Patients with high levels of Biotin oral intake (i.e >5mg/day) may have falsely decreased Troponin levels. Samples collected within 8 hours of biotin intake may require additional information for diagnosis. Performed By: #### C DP, TROPI, BMP, CRP, SED #### [facility] [employer] [address] [place] [address] Code And Test Clerk: Campos Escobedo MD Troponin I.cardiac [Mass/Vol] NOT REPORTED Normal <0.03 [facility] Comment on above: Performed By: #### C DP, TROPI, BMP, CRP, SED #### [id number] [place], [place] [id number] Code And Test Clerk: Campos Escobedo MD XR CHEST PORTABLEon 08-13-20 XR CHEST PORTABLE EXAMINATION: ONE XRAY VIEW OF THE CHEST 08/13/2019 6:08 am COMPARISON: None. HISTORY: ORDERING SYSTEM PROVIDED HISTORY: re eval Left lower pna on CTA TECHNOLOGIST PROVIDED HISTORY: re eval Left lower pna on CTA Reason for Exam: uprt port Acuity: Unknown Type of Exam: Unknown FINDINGS: Cardiomegaly. Retrocardiac airspace opacity. Right basilar atelectasis/scarring. Trachea is midline. Osseous structures and soft tissues are grossly intact. IMPRESSION: Cardiomegaly and retrocardiac airspace disease. Interpreted by: Kai Elias MD Signed by: Kai Elias MD 08/13/19 Final result Normal [facility] Vital Signs Date Time Vital Sign Value Performing Clinician Facility 10-24-2024 14:51-0500 Body height 162.6 cm Monika Castillo [employer] Work Phone: [facility] 10-24-2024 14:51-0500 Body mass index (BMI) [Ratio] 32.82 kg/m2 Monika Castillo [employer] Work Phone: [facility] 10-24-2024 14:51-0500 Body temperature 98.8 [degF] Monika Castillo [employer] Work Phone: [facility] 10-24-2024 14:51-0500 Body weight 86.73 kg Monika Castillo [employer] Work Phone: [facility] 10-24-2024 14:51-0500 Diastolic blood pressure 80 mm[Hg] Monika Castillo [employer] Work Phone: [facility] 10-24-2024 14:51-0500 Heart rate 78 /min Monika Castillo [employer] Work Phone: [facility] 10-24-2024 14:51-0500 Respiratory rate 18 /min Monika Castillo [employer] Work Phone: [facility] 10-24-2024 14:51-0500 SaO2% (BldA) [Mass fraction] 94 % Monika Castillo [employer] Work Phone: [facility] 10-24-2024 14:51-0500 Systolic blood pressure 138 mm[Hg] Monika Castillo [employer] Work Phone: [facility] 08-23-2024 10:18-0500 Body height 162.6 cm Halle Petznick DO Work Phone: [facility] 08-23-2024 10:18-0500 Body mass index (BMI) [Ratio] 31.93 kg/m2 Halle Petznick DO Work Phone: [facility] 08-23-2024 10:18-0500 Body temperature 97.9 [degF] Halle Petznick DO Work Phone: [facility] 08-23-2024 10:18-0500 Body weight 84.37 kg Halle Petznick DO Work Phone: [facility] 08-23-2024 10:18-0500 Diastolic blood pressure 82 mm[Hg] Halle Petznick DO Work Phone: [facility] 08-23-2024 10:18-0500 Heart rate 60 /min Halle Petznick DO Work Phone: [facility] 08-23-2024 10:18-0500 SaO2% (BldA) [Mass fraction] 94 % Halle Petznick DO Work Phone: [facility] 08-23-2024 10:18-0500 Systolic blood pressure 136 mm[Hg] Halle Petznick DO Work Phone: [facility] 01-25-2024 10:41-0400 Body height 162.56 cm [facility] 01-25-2024 10:41-0400 Body mass index (BMI) [Ratio] 32.4 kg/m2 [facility] 01-25-2024 10:41-0400 Body weight 85.72 kg [facility] 01-25-2024 10:41-0400 Diastolic blood pressure 79 mm[Hg] [facility] 01-25-2024 10:41-0400 Heart rate 71 /min [facility] 01-25-2024 10:41-0400 Systolic blood pressure 136 mm[Hg] [facility] 09-26-2023 10:45-0500 Body height 162.56 cm Cordell Masters Other [employer] [facility] [employer] Other 09-26-2023 10:45-0500 Body mass index (BMI) [Ratio] 30.86 kg/m2 Cordell Masters Other [employer] Other 09-26-2023 10:45-0500 Body temperature 96.1 [degF] Cordell Masters Other [employer] Other 09-26-2023 10:45-0500 Body weight 81.56 kg Cordell Masters Other [employer] Other 09-26-2023 10:45-0500 Diastolic blood pressure 71 mm[Hg] Cordell Masters Other [employer] Other 09-26-2023 10:45-0500 Systolic blood pressure 135 mm[Hg] Cordell Masters Other [employer] Other Encounters Encounter Date Encounter Type Care Provider Facility Start: 11-08-2024 End: 11-08-2024 Orders Only Monika Castillo [employer] Work Phone: [facility] Comment on above: Hypocalcemia (Primar y Dx) Start: 11-07-2024 End: 11-07-2024 Clinisync Result Encounter Monika Castillo [employer] Work Phone: [facility] External Department Unsolicited Start: 11-07-2024 End: 11-07-2024 Clinisync Result Encounter Monika Castillo [employer] Work Phone: [facility] External Department Unsolicited Start: 10-24-2024 End: 10-24-2024 Office outpatient visit 25 minutes Monika Castillo [employer] Work Phone: [facility] Comment on above: Primary hypertension (CMS/HCC) (Primary Dx); 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/HCC); 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); Other specified diabetes mellitus without complications (CMS/HCC); 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) (CMS/[facility]); Anxiety and depression (CMS/HCC); Hypothyroidism, unspecified type ([facility]/HCC); Pericardial effusion; Cerebrovascular accident (CVA), unspecified mechanism ([facility]/HCC); Chronic left shoulder pain Start: 10-24-2024 End: 10-24-2024 ambulatory MONIKA CASTILLO Not Available Start: 10-24-2024 End: 10-24-2024 Bamboo flowsheet Monika Castillo [employer] Work Phone: [facility] Start: 10-24-2024 End: 10-24-2024 Bamboo flowsheet Monika Castillo [employer] Work Phone: [facility] Start: 08-23-2024 End: 08-23-2024 Office outpatient visit 25 minutes Halle Byers DO Work Phone: [facility] [phone] Comment on above: 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) (HCC) ([facility]/HCC) (Primary Dx); 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/HCC); Long-term insulin use ([facility]) Start: 08-23-2024 End: 08-23-2024 ambulatory HALLE M PETZNICK Not Available Start: 05-23-2024 End: 05-23-2024 ambulatory HALLE M PETZNICK Not Available Start: 05-08-2024 End: 05-08-2024 ambulatory MONIKA AICHHOLZ Not Available Start: 05-08-2024 Patient encounter procedure Halle Petznick DO Work Phone: [facility] Start: 04-03-2024 End: 04-03-2024 ambulatory MONIKA CASTILLO Not Available Start: 03-14-2024 End: 03-14-2024 ambulatory HALLE BYERS Not Available Start: 01-25-2024 End: 01-25-2024 ambulatory [facility] Work Phone: Start: 01-25-2024 End: 01-25-2024 Patient encounter procedure [facility] Physician [facility] Work Phone: Start: 01-01-2024 Non-patient / Non-visit [facility] Work Phone: Start: 11-02-2023 End: 11-02-2023 ambulatory Cordell Masters Other [facility] Other Start: 11-02-2023 Telephone encounter [facility] Start: 10-05-2023 End: 10-05-2023 ambulatory Cordell Masters Other [facility] Other Start: 10-05-2023 Telephone encounter [facility] Start: 09-26-2023 End: 09-26-2023 ambulatory Codrell Masters Other [facility] Other Start: 09-26-2023 Office outpatient vi sit 15 minutes [facility] Start: 08-18-2023 End: 08-21-2023 ambulatory [facility]OFF RANDAL [facility] Start: 08-17-2023 End: 08-20-2023 ambulatory GEOFF RANDAL [facility] Start: 08-02-2023 End: 08-02-2023 ambulatory Cordell Masters Other [facility] Other Start: 08-02-2023 Telephone encounter [facility] Start: 07-13-2023 End: 07-13-2023 ambulatory Cordell Masters Other [facility] Other Start: 07-13-2023 Telephone encounter [facility] Start: 03-14-2023 End: 03-14-2023 ambulatory Cordell Masters Other [facility] Other Start: 03-14-2023 Telephone encounter [facility] Start: 03-10-2023 End: 03-11-[address] CORDELL MASTERS Facility:[facility] Start: 04-13-2022 Encounter for genera l adult medical examination without abnormal findings DR CORDELL MASTERS [facility] Start: 04-08-2022 End: 04-09-[address] CORDELL MASTERS Facility:[facility] Start: 04-08-2022 End: 04-09-2022 Encounter for general adult medical examination without abnormal findings DR CORDELL MASTERS Facility:[facility] Start: 10-24-2019 End: 10-25-2019 Patient encounter procedure POORNIMA GREEN [facility] Start: 10-24-2019 End: 10-24-2019 Subsequent hospital visit by physician Cordell Masters MD Work Phone: [facility] Comment on above: Coxsackie virus infe ction Start: 10-21-2019 End: 10-23-2019 Subsequent hospital visit by physician [address] Radiology Comment on above: Pleural effusion on left Start: 09-18-2019 End: 09-18-2019 Subsequent hospital visit by physician Cordell Masters [facility] Laboratory Comment on above: Coxsackie virus infe ction Start: 09-06-2019 End: 09-08-2019 Subsequent hospital visit by physician Cordell Masters [facility] Start: 09-04-2019 End: 09-05-2019 Patient encounter procedure MANOLO CONKLIN [facility] Start: 09-04-2019 End: 09-04-2019 Subsequent hospital visit by physician Lito Echo [address] [facility] Comment on above: S/P pericardial wind ow creation; Pericardial effusion Start: 08-13-2019 End: 08-24-2019 Evaluation and management of inpatient BHARAT ARMANDO [facility] [place] Procedures Date Procedure Procedure Detail Performing Clinician Start: 11-07-2024 ALL CBC WITH AUTO DIFF Monika Anna [employer] Work Phone: Start: 08-23-2024 Hemoglobin glycosylated a1c Halle Byers DO Work Phone: Start: 04-04-2024 Colonoscopy Halle devi DO Work Phone: Start: 04-04-2024 Mammography Halle devi DO Work Phone: Start: 10-24-[address] [facility] Start: 10-21-2019 Radiologic exam ches t 2 views Juanjo Coates MD Work Phone: Start: 09-04-2019 Echo transthorc r-t 2d w/wo m-mode rec f-up/lmtd [facility]AT [facility] Start: 09-04-2019 ECHOCARDIOGRAM LIMITED Manolo Ornelas Óscar Work Phone: Start: 08-24-2019 Gluc bld gluc mntr d ev cleared fda spec home use [facility]AT [facility] Start: 08-24-2019 ACAPELLA BHARAT RE [facility]EC[facility] Start: 08-24-2019 Assay of magnesium STEP HEN REINECK Start: 08-24-2019 Assay of phosphorus inorganic BH[facility]AT REINECK Start: 08-24-2019 Basic metabolic pane l calcium total BH[facility]AT RE[facility]EC[facility] Start: 08-24-2019 Blood count complete auto&auto difrntl wbc [facility]AT [facility] Start: 08-24-2019 Calcium ionized [facility]AT [facility] Start: 08-24-2019 INCENTIVE SPIROMETRY RT BHARAT RE[facility]ECK Start: 08-24-2019 Prothrombin time STEPHE N REINECK Start: 08-24-2019 Thromboplastin time partial plasma/whole blood BHARAT REINECK Start: 08-24-2019 ACAPELLA BH[facility]AT RE INEC[facility] Start: 08-24-2019 INCENTIVE SPIROMETRY RT [facility]AT RE[facility]ECK Start: 08-24-2019 ACAPELLA BHARAT RE INECK Start: 08-24-2019 INCENTIVE SPIROMETRY RT [facility]AT RE[facility]EC[facility] Start: 08-24-2019 DISCHARGE PATIENT IMELDA EN REINECK Start: 08-24-2019 ACAPELLA BHARAT RE INECK Start: 08-24-2019 INCENTIVE SPIROMETRY RT [facility]AT [facility] Start: 08-24-2019 Glucose blood reagent strip [facility]AT [facility] Start: 08-24-2019 ACABELINDA BLANKENSHIPCK Start: 08-24-2019 INCENTIVE SPIROMETRY RT [facility] Start: 08-24-2019 Gluc bld gluc mntr d ev cleared fda spec home use [facility]AT REINECK Start: 08-24-2019 Radiologic exam ches t single view [facility]AT [facility] Start: 08-24-2019 ACAPERADHA GOLDMAN INECK Start: 08-24-2019 INCENTIVE SPIROMETRY RT [facility] Start: 08-24-2019 INITIATE OXYGEN THER APY PROTOCOL [facility]AT [facility] Start: 08-24-[address] [facility] Start: 08-24-2019 Glucose blood reagent strip BHARAT RE[facility]EC[facility] Start: 08-24-2019 ACAPELLA BHARAT GOLDMAN INECK Start: 08-24-2019 INCENTIVE SPIROMETRY RT [facility]AT REINECK Start: 08-24-2019 Assay of magnesium STEP HEN REINECK Start: 08-24-2019 Assay of phosphorus inorganic BHARAT REINECK Start: 08-24-2019 Basic metabolic pane l calcium total BHARAT REINECK Start: 08-24-2019 Blood count complete auto&auto difrntl wbc BHARAT REINECK Start: 08-24-2019 Calcium ionized BHARAT REINECK Start: 08-24-2019 Prothrombin time STEPHE N REINECK Start: 08-24-2019 Thromboplastin time partial plasma/whole blood BHARAT REINECK Start: 08-24-2019 Gluc bld gluc mntr d ev cleared fda spec home use BHARAT REINECK Start: 08-24-2019 INTAKE AND OUTPUT IMELDA EN REINECK Start: 08-24-2019 Gluc bld gluc mntr d ev cleared fda spec home use [facility]AT REINECK Start: 08-24-2019 ACAPELLJenny GOLDMAN INECK Start: 08-24-2019 INCENTIVE SPIROMETRY RT [facility]AT [facility]EC[facility] Start: 08-23-2019 Glucose blood reagent strip BHARAT REINECK Start: 08-23-2019 ACAPELLA BHARAT GOLDMAN INECK Start: 08-23-2019 INCENTIVE SPIROMETRY RT [facility]AT REINECK Start: 08-23-2019 Gluc bld gluc mntr d ev cleared fda spec home use BH[facility]AT REINECK Start: 08-23-2019 Culture fngi mold/ye ast prsmptv oth xcpt blood [facility]AT REINEC[facility] Start: 08-23-2019 Cytopath fl nongyn, sm/fltr [facility] Start: 08-23-2019 Culture tubercle/oth acid-fast bacilli any isol [facility]AT OTOOLEECK Start: 08-23-2019 Cul bact xcpt urine blood/stool aerobic isol [facility]AT [facility] Start: 08-23-2019 Smr prim src gram/gi emsa stain bct fungi/cell [facility]AT OTOOLEECK Start: 08-23-2019 Cell count misc body fluids w/differential count BH[facility]AT OTOOLEECK Start: 08-23-2019 Glucose body fluid o ther than blood BH[facility]AT OTOOLEECK Start: 08-23-2019 Lactate dehydrogenase ldh BH[facility]AT OTOOLEECK Start: 08-23-2019 Ph body fluid not el sewhere specified BHARAT OTOOLEECK Start: 08-23-2019 Protein total xcpt refractometry oth src BH[facility]AT OTOOLEECK Start: 08-23-2019 ACAPELLA BHARATSKYLAR POND Start: 08-23-2019 INCENTIVE SPIROMETRY RT BHARAT OTOOLEECK Start: 08-23-2019 Glucose blood reagent strip BHARAT OTOOLEECK Start: 08-23-2019 ACAPELLA BHARAT POND Start: 08-23-2019 INCENTIVE SPIROMETRY RT BHARAT OTOOLEECK Start: 08-23-2019 DIETARY NUTRITION SUPPLEMENTS BHARAT OTOOLEECK Start: 08-23-2019 Antinuclear antibodies lois BHARAT OTOOLEECK Start: 08-23-2019 ACAPELLA BHARAT POND Start: 08-23-2019 INCENTIVE SPIROMETRY RT BHARAT OTOOLEECK Start: 08-23-2019 Thoracentesis needle /cath pleura w/imaging BHARAT OTOOLEECK Start: 08-23-2019 ACAPELLA BHARATSKYLAR POND Start: 08-23-2019 INCENTIVE SPIROMETRY RT BHARAT OTOOLEECK Start: 08-23-2019 Antinuclear antibodies lois [facility]AT [facility] Start: 08-23-2019 C-reactive protein JEANETH CHENG REINECK Start: 08-23-2019 Cyclic citrullinated peptide antibody BHARAT OTOOLEECK Start: 08-23-2019 Hepatic function panel BHARAT OTOOLEECK Start: 08-23-2019 Lactate dehydrogenase ldh BHARAT REINECK Start: 08-23-2019 Glucose blood reagent strip BHARAT OTOOLEECK Start: 08-23-2019 ACAPELLA BHARATSKYLAR POND Start: 08-23-2019 INCENTIVE SPIROMETRY RT BHARAT OTOOLEECK Start: 08-23-2019 Radiologic exam ches t 2 views BHARAT OTOOLEECK Start: 08-23-2019 Gluc bld gluc mntr d ev cleared fda spec home use BHARAT REINECK Start: 08-23-2019 ACAPELLA BHARAT RE INECK Start: 08-23-2019 INCENTIVE SPIROMETRY RT BH[facility]AT REINECK Start: 08-23-[address] [facility] Start: 08-23-2019 INITIATE OXYGEN THER APY PROTOCOL BHARAT REINECK Start: 08-23-2019 Glucose blood reagent strip BAHRAT REINECK Start: 08-23-2019 ACAPELLA BHARAT RE INECK Start: 08-23-2019 INCENTIVE SPIROMETRY RT BHARAT REINECK Start: 08-23-2019 Gluc bld gluc mntr d ev cleared fda spec home use BHARAT REINECK Start: 08-23-2019 Assay of magnesium STEP HEN REINECK Start: 08-23-2019 Assay of phosphorus inorganic BHARAT REINECK Start: 08-23-2019 Basic metabolic pane l calcium total BHARAT REINECK Start: 08-23-2019 Blood count complete auto&auto difrntl wbc BHARAT REINECK Start: 08-23-2019 Calcium ionized BHARAT REINECK Start: 08-23-2019 Prothrombin time STEPHE N REINECK Start: 08-23-2019 Thromboplastin time partial plasma/whole blood BHARAT REINECK Start: 08-23-2019 INTAKE AND OUTPUT IMELDA EN REINECK Start: 08-23-2019 Gluc bld gluc mntr d ev cleared fda spec home use BHARAT REINECK Start: 08-23-2019 ACAPELLA BHARAT RE INECK Start: 08-23-2019 INCENTIVE SPIROMETRY RT BHARAT REINECK Start: 08-22-2019 Glucose blood reagent strip BHARAT REINECK Start: 08-22-2019 ACAPELLA BHARAT RE INECK Start: 08-22-2019 INCENTIVE SPIROMETRY RT BHARAT REINECK Start: 08-22-2019 Gluc bld gluc mntr d ev cleared fda spec home use BHARAT REINECK Start: 08-22-2019 ACAPELLA BHARAT RE INECK Start: 08-22-2019 INCENTIVE SPIROMETRY RT BHARAT REINECK Start: 08-22-2019 Assay of magnesium STEP HEN REINECK Start: 08-22-2019 Potassium serum plasma/whole blood BHARAT REINECK Start: 08-22-2019 ACAPELLA BHARAT RE INECK Start: 08-22-2019 INCENTIVE SPIROMETRY RT BHARAT REINECK Start: 08-22-2019 Glucose blood reagent strip BHARAT REINECK Start: 08-22-[address] JAYNA [facility] Start: 08-22-2019 ACAPELLA BHARAT POND Start: 08-22-2019 INCENTIVE SPIROMETRY RT BHARAT REINECK Start: 08-22-2019 ACAPERADHA POND Start: 08-22-2019 INCENTIVE SPIROMETRY RT BHARAT REINECK Start: 08-22-2019 Glucose blood reagent strip BHARAT REINECK Start: 08-22-2019 ACAPESCARLETTJenny GOLDMAN KRZYSZTOFETHAN Start: 08-22-2019 INCENTIVE SPIROMETRY RT BHARAT REINECK Start: 08-22-2019 Gluc bld gluc mntr d ev cleared fda spec home use BHARAT REINECK Start: 08-22-2019 ACAPELLA BHARAT POND Start: 08-22-2019 INCENTIVE SPIROMETRY RT BHARAT REINECK Start: 08-22-2019 INITIATE OXYGEN THER APY PROTOCOL BHARAT REINECK Start: 08-22-2019 Glucose blood reagent strip BHARAT REINECK Start: 08-22-2019 Assay of magnesium STEP SKYLAR REINECK Start: 08-22-2019 Assay of phosphorus inorganic BHARAT REINECK Start: 08-22-2019 Blood count complete auto&auto difrntl wbc BHARAT REINECK Start: 08-22-2019 Calcium ionized BHARAT REINECK Start: 08-22-2019 Comprehensive metabo lic panel BHARAT REINECK Start: 08-22-2019 Prothrombin time STEPHE N REINECK Start: 08-22-2019 Thromboplastin time partial plasma/whole blood BHARAT REINECK Start: 08-22-2019 ACAPERADHA BHARAT GOLDMAN KRZYSZTOFETHAN Start: 08-22-2019 INCENTIVE SPIROMETRY RT BHARAT REINECK Start: 08-22-2019 Gluc bld gluc mntr d ev cleared fda spec home use BHARAT REINECK Start: 08-22-2019 DAILY WEIGHTS BHARAT JOHNSON Start: 08-22-2019 INTAKE AND OUTPUT IMELDA EN REINECK Start: 08-22-2019 Gluc bld gluc mntr d ev cleared fda spec home use BHARAT REINECK Start: 08-22-2019 ACAPELLJenny POND Start: 08-22-2019 INCENTIVE SPIROMETRY RT BHARAT REINECK Start: 08-21-2019 Glucose blood reagent strip BHARAT REINECK Start: 08-21-2019 ACAPERADHA BHARAT GOLDMAN DEJAH Start: 08-21-2019 INCENTIVE SPIROMETRY RT BHARAT REINECK Start: 08-21-2019 Gluc bld gluc mntr d ev cleared fda spec home use BHARAT REINECK Start: 08-21-2019 ACAPELLJenny NICHOLSON RE KRZYSZTOFCK Start: 08-21-2019 INCENTIVE SPIROMETRY RT BHARAT REINECK Start: 08-21-2019 Radiologic exam ches t single view BHARAT REINECK Start: 08-21-2019 Glucose blood reagent strip BHARAT REINECK Start: 08-21-2019 ACAPERADHA NICHOLSON RE KRZYSZTOFCK Start: 08-21-2019 INCENTIVE SPIROMETRY RT BHARAT REINECK Start: 08-21-2019 ACAPELLA BHARAT RE INECK Start: 08-21-2019 INCENTIVE SPIROMETRY RT BHARAT REINECK Start: 08-21-2019 Level iv surg pathol ogy gross&microscopic exam BHARAT REINECK Start: 08-21-2019 ACAPERADHA NICHOLSON RE KRZYSZTOFCK Start: 08-21-2019 INCENTIVE SPIROMETRY RT BHARAT REINECK Start: 08-21-2019 DIET CARDIAC BHARAT POND Start: 08-21-2019 Glucose blood reagent strip BHARAT REINECK Start: 08-21-2019 Cul prsmptv pthgnc o rganism scrn w/colony estimj BHARAT REINECK Start: 08-21-2019 Culture fngi mold/ye ast prsmptv oth xcpt blood BHARAT REINECK Start: 08-21-2019 Culture tubercle/oth acid-fast bacilli any isol BHARAT REINECK Start: 08-21-2019 Cytopath fl nongyn, sm/fltr BH[facility]AT REINEC[facility] Start: 08-21-2019 OT EVAL AND TREAT IMELDA EN REINECK Start: 08-21-2019 PLACE INTERMITTENT PNEUMATIC COMPRESSION DEVICE BHARAT REINECK Start: 08-21-2019 PT EVAL AND TREAT IMELDA EN REINECK Start: 08-21-2019 ACAPELLA BHARAT RE INECK Start: 08-21-2019 ADVANCE DIET TOLE RATED (NURSING COMMUNICATION) BHARAT REINECK Start: 08-21-2019 AMBULATE PATIENT STEPHE N REINECK Start: 08-21-2019 CHEST TUBE TO CONTIN UOUS SUCTION BHARAT REINECK Start: 08-21-2019 ELEVATE HOB BHARAT RE DEJAH Start: 08-21-2019 ENCOURAGE DEEP BREAT TREVOR AND COUGHING BHARAT REINECK Start: 08-21-2019 FULL CODE BHARAT RE INECK Start: 08-21-2019 INCENTIVE SPIROMETRY RT BHARAT REINECK Start: 08-21-2019 INTAKE AND OUTPUT IMELDA EN REINECK Start: 08-21-2019 NOTIFY PHYSICIAN (SPECIFY) BHARAT REINECK Start: 08-21-2019 NURSING COMMUNICATION S DOMONIQUE OTOOLEECK Start: 08-21-2019 TUBE SITE CARE BHARAT REINECK Start: 08-21-2019 VITAL SIGNS BHARAT POND Start: 08-21-2019 WOUND CARE BHARAT GOLDMAN INEETHAN Start: 08-21-2019 Gluc bld gluc mntr d ev cleared fda spec home use BHARAT REINECK Start: 08-21-2019 Cul prsmptv pthgnc o rganism scrn w/colony estimj BHARAT REINECK Start: 08-21-2019 Cul bact xcpt urine blood/stool aerobic isol BHARAT REINECK Start: 08-21-2019 Culture fngi mold/ye ast prsmptv oth xcpt blood BHARAT REINECK Start: 08-21-2019 Level iv surg pathol ogy gross&microscopic exam BHARAT REINECK Start: 08-21-2019 INITIATE OXYGEN THER APY PROTOCOL BHARAT REINECK Start: 08-21-2019 PREPARE RBC (CROSSMATCH) BHARAT REINECK Start: 08-21-2019 Transfusion blood/bl ood components BHARAT REINECK Start: 08-21-2019 Assay of magnesium STEP SKYLAR REINECK Start: 08-21-2019 Assay of phosphorus inorganic BHARAT REINECK Start: 08-21-2019 Basic metabolic pane l calcium total BHARAT REINECK Start: 08-21-2019 Blood count complete auto&auto difrntl wbc BHARAT REINECK Start: 08-21-2019 Calcium ionized BHARAT REINECK Start: 08-21-2019 Prothrombin time STEPHE N REINECK Start: 08-21-2019 Thromboplastin time partial plasma/whole blood BHARAT REINECK Start: 08-21-2019 Gluc bld gluc mntr d ev cleared fda spec home use BHARAT REINECK Start: 08-21-2019 INTAKE AND OUTPUT IMELDA EN REINECK Start: 08-21-2019 Gluc bld gluc mntr d ev cleared fda spec home use BHARAT REINECK Start: 08-20-2019 Glucose blood reagent strip BHARAT REINECK Start: 08-20-2019 Gluc bld gluc mntr d ev cleared fda spec home use BHARAT REINECK Start: 08-20-2019 Glucose blood reagent strip BHARAT REINECK Start: 08-20-2019 Glucose blood reagent strip BHARAT REINECK Start: 08-20-2019 Autol bld/component collj storage predeposited BHARAT REINECK Start: 08-20-2019 TYPE AND SCREEN BHARAT REINECK Start: 08-20-2019 Gluc bld gluc mntr d ev cleared fda spec home use BHARAT REINECK Start: 08-20-2019 INITIATE OXYGEN THER APY PROTOCOL BHARAT REINECK Start: 08-20-2019 Glucose blood reagent strip BHARAT REINECK Start: 08-20-2019 Assay of magnesium STEP HEN REINECK Start: 08-20-2019 Assay of phosphorus inorganic BHARAT REINECK Start: 08-20-2019 Basic metabolic pane l calcium total BHARAT REINECK Start: 08-20-2019 Blood count complete auto&auto difrntl wbc BHARAT REINECK Start: 08-20-2019 Calcium ionized BHARAT REINECK Start: 08-20-2019 Prothrombin time STEPHE N REINECK Start: 08-20-2019 Thromboplastin time partial plasma/whole blood BHARAT REINECK Start: 08-20-2019 Gluc bld gluc mntr d ev cleared fda spec home use BHARAT REINECK Start: 08-20-2019 INTAKE AND OUTPUT IMELDA EN REINECK Start: 08-20-2019 Gluc bld gluc mntr d ev cleared fda spec home use BHARAT REINECK Start: 08-19-2019 Glucose blood reagent strip BHARAT REINECK Start: 08-19-2019 Gluc bld gluc mntr d ev cleared fda spec home use BHARAT REINECK Start: 08-19-[address] SERENAEN REINEC[facility] Start: 08-19-2019 Glucose blood reagent strip BHARAT REINECK Start: 08-19-2019 IP CONSULT TO CARDIOTHORACIC SURGERY BHARAT REINECK Start: 08-19-2019 Glucose blood reagent strip BHARAT REINECK Start: 08-19-2019 Echo transthorc r-t 2d w/wo m-mode rec f-up/lmtd BHARAT REINECK Start: 08-19-2019 Gluc bld gluc mntr d ev cleared fda spec home use BHARAT REINECK Start: 08-19-2019 INITIATE OXYGEN THER APY PROTOCOL BHARAT REINECK Start: 08-19-2019 Assay of magnesium STEP HEN REINECK Start: 08-19-2019 Assay of phosphorus inorganic BHARAT REINECK Start: 08-19-2019 Basic metabolic pane l calcium total BHARAT REINECK Start: 08-19-2019 Blood count complete auto&auto difrntl wbc BHARAT REINECK Start: 08-19-2019 Calcium ionized BHARAT REINECK Start: 08-19-2019 Hemoglobin glycosylated a1c BHARAT REINECK Start: 08-19-2019 Prothrombin time STEPHE N REINECK Start: 08-19-2019 Thromboplastin time partial plasma/whole blood BHARAT REINECK Start: 08-19-2019 Glucose blood reagent strip BHARAT REINECK Start: 08-19-2019 Gluc bld gluc mntr d ev cleared fda spec home use BHARAT REINECK Start: 08-19-2019 INTAKE AND OUTPUT IMELDA EN REINECK Start: 08-19-2019 Gluc bld gluc mntr d ev cleared fda spec home use BHARAT REINECK Start: 08-18-2019 Gluc bld gluc mntr d ev cleared fda spec home use BHARAT REINECK Start: 08-18-2019 Glucose blood reagent strip BHARAT REINECK Start: 08-18-2019 Glucose blood reagent strip BHARAT REINECK Start: 08-18-2019 Gluc bld gluc mntr d ev cleared fda spec home use BHARAT REINECK Start: 08-18-2019 Assay of magnesium STEP HEN REINECK Start: 08-18-2019 Assay of phosphorus inorganic BHARAT REINECK Start: 08-18-2019 Basic metabolic pane l calcium total BHARAT REINECK Start: 08-18-2019 Blood count complete auto&auto difrntl wbc BHARAT REINECK Start: 08-18-2019 Calcium ionized BHARAT REINECK Start: 08-18-2019 Prothrombin time STEPHE N REINECK Start: 08-18-2019 Thromboplastin time partial plasma/whole blood BHARAT REINECK Start: 08-18-2019 INITIATE OXYGEN THER APY PROTOCOL BHARAT REINECK Start: 08-18-2019 Glucose blood reagent strip BHARAT REINECK Start: 08-18-2019 Gluc bld gluc mntr d ev cleared fda spec home use BHARAT REINECK Start: 08-18-2019 INTAKE AND OUTPUT IMELDA EN REINECK Start: 08-18-2019 Gluc bld gluc mntr d ev cleared fda spec home use BHARAT REINECK Start: 08-17-2019 Glucose blood reagent strip BHARAT REINECK Start: 08-17-2019 Gluc bld gluc mntr d ev cleared fda spec home use BHARAT REINECK Start: 08-17-2019 Glucose blood reagent strip BHARAT REINECK Start: 08-17-2019 Glucose blood reagent strip BHARAT REINECK Start: 08-17-2019 Radiologic exam ches t 2 views BHARAT REINECK Start: 08-17-2019 Gluc bld gluc mntr d ev cleared fda spec home use BHARAT REINECK Start: 08-17-2019 INITIATE OXYGEN THER APY PROTOCOL BHARAT REINECK Start: 08-17-2019 Glucose blood reagent strip BHARAT REINECK Start: 08-17-2019 Assay of magnesium STEP HEN REINECK Start: 08-17-2019 Assay of phosphorus inorganic BHARAT REINECK Start: 08-17-2019 Basic metabolic pane l calcium total BHARAT REINECK Start: 08-17-2019 Blood count complete auto&auto difrntl wbc BHARAT REINECK Start: 08-17-2019 Calcium ionized BHARAT REINECK Start: 08-17-2019 Prothrombin time STEPHE N REINECK Start: 08-17-2019 Thromboplastin time partial plasma/whole blood BHARAT REINECK Start: 08-17-2019 Gluc bld gluc mntr d ev cleared fda spec home use BHARAT REINECK Start: 08-17-2019 INTAKE AND OUTPUT IMELDA EN REINECK Start: 08-17-2019 Gluc bld gluc mntr d ev cleared fda spec home use BHARAT REINECK Start: 08-16-2019 Glucose blood reagent strip BHARAT REINECK Start: 08-16-2019 Gluc bld gluc mntr d ev cleared fda spec home use BHARAT REINECK Start: 08-16-2019 Culture fngi mold/ye ast prsmptv oth xcpt blood BHARAT REINECK Start: 08-16-2019 Culture tubercle/oth acid-fast bacilli any isol BHARAT REINECK Start: 08-16-2019 Glucose blood reagent strip BHARAT REINECK Start: 08-16-2019 Calcium ionized BHARAT REINECK Start: 08-16-2019 PREVIOUS SPECIMEN IMELDA EN REINECK Start: 08-16-2019 Prothrombin time STEPHE N REINECK Start: 08-16-2019 Thromboplastin time partial plasma/whole blood BHARAT REINECK Start: 08-16-2019 Glucose blood reagent strip BHARAT REINECK Start: 08-16-2019 Gluc bld gluc mntr d ev cleared fda spec home use BHARAT REINECK Start: 08-16-2019 VERIFY INFORMED CONSENT BHARAT REINECK Start: 08-16-2019 INITIATE OXYGEN THER APY PROTOCOL BHARAT REINECK Start: 08-16-2019 Assay of magnesium STEP SKYLAR REINECK Start: 08-16-2019 Assay of phosphorus inorganic BHARAT REINECK Start: 08-16-2019 Basic metabolic pane l calcium total BHARAT REINECK Start: 08-16-2019 Blood count complete auto&auto difrntl wbc BHARAT REINECK Start: 08-16-2019 Drug tst prsmv instr mnt chem analyzers pr date BHARAT REINECK Start: 08-16-2019 Glucose blood reagent strip BHARAT REINECK Start: 08-16-2019 Cul prsmptv pthgnc o rganism scrn w/[place] estimj BHARAT REINECK Start: 08-16-2019 Gluc bld gluc mntr d ev cleared fda spec home use BHARAT REINECK Start: 08-16-2019 INTAKE AND OUTPUT IMELDA EN REINECK Start: 08-16-2019 Gluc bld gluc mntr d ev cleared fda spec home use BHARAT REINECK Start: 08-15-2019 Glucose blood reagent strip BHARAT REINECK Start: 08-15-2019 Gluc bld gluc mntr d ev cleared fda spec home use BHARAT REINECK Start: 08-15-2019 Glucose blood reagent strip BHARAT REINECK Start: 08-15-2019 R & l hrt cath w/njx l ventriculog img s&i BHARAT REINECK Start: 08-15-2019 Echo transthorc r-t 2d w/wo m-mode rec f-up/lmtd BHARAT REINECK Start: 08-15-2019 Glucose blood reagent strip BHARAT REINECK Start: 08-15-2019 Gluc bld gluc mntr d ev cleared fda spec home use BHARAT REINECK Start: 08-15-2019 INITIATE OXYGEN THER APY PROTOCOL BHARAT REINECK Start: 08-15-2019 Assay of magnesium STEP SKYLAR REINECK Start: 08-15-2019 Assay of phosphorus inorganic BHARAT REINECK Start: 08-15-2019 Basic metabolic pane l calcium total BHARAT REINECK Start: 08-15-2019 Blood count complete auto&auto difrntl wbc BHARAT REINECK Start: 08-15-2019 C-reactive protein STEP SKYLAR REINECK Start: 08-15-2019 Calcium ionized BHARAT REINECK Start: 08-15-2019 Prothrombin time STEPHE N REINECK Start: 08-15-2019 Thromboplastin time partial plasma/whole blood BHARAT REINECK Start: 08-15-2019 Gluc bld gluc mntr d ev cleared fda spec home use BHARAT REINECK Start: 08-15-2019 INTAKE AND OUTPUT IMELDA EN REINECK Start: 08-15-2019 Gluc bld gluc mntr d ev cleared fda spec home use BHARAT REINECK Start: 08-14-2019 Glucose blood reagent strip BHARAT REINECK Start: 08-14-2019 Gluc bld gluc mntr d ev cleared fda spec home use BHARAT REINECK Start: 08-14-[address] EPHEN RE[facility]ECK Start: 08-14-2019 INFECTIOUS DISEASE INTERVENTION BHARAT REINECK Start: 08-14-2019 Glucose blood reagent strip BHARAT REINECK Start: 08-14-2019 MAINTAIN INTERMITTEN T PNEUMATIC COMPRESSION DEVICE BHARAT REINECK Start: 08-14-2019 Echo transthorc r-t 2d w/wo m-mode rec f-up/lmtd BHARAT REINECK Start: 08-14-2019 Glucose blood reagent strip BHARAT REINECK Start: 08-14-2019 Antibody mycoplsm IMELDA EN REINECK Start: 08-14-[address] EPHEN REINECK Start: 08-14-2019 Gluc bld gluc mntr d ev cleared fda spec home use BHARAT REINECK Start: 08-14-2019 IP CONSULT TO INFECT IOUS DISEASES BHARAT REINECK Start: 08-14-2019 INITIATE OXYGEN THER APY PROTOCOL BHARAT REINECK Start: 08-14-2019 Glucose blood reagent strip BHARAT REINECK Start: 08-14-2019 Assay of magnesium STEP HEN REINECK Start: 08-14-2019 Assay of phosphorus inorganic BHARAT REINECK Start: 08-14-2019 Basic metabolic pane l calcium total BHARAT REINECK Start: 08-14-2019 Blood count complete auto&auto difrntl wbc BHARAT REINECK Start: 08-14-2019 Calcium ionized BHARAT REINECK Start: 08-14-2019 Prothrombin time STEPHE N REINECK Start: 08-14-2019 Thromboplastin time partial plasma/whole blood BHARAT REINECK Start: 08-14-2019 Gluc bld gluc mntr d ev cleared fda spec home use BHARAT REINECK Start: 08-14-2019 INTAKE AND OUTPUT IMELDA EN REINECK Start: 08-14-2019 Gluc bld gluc mntr d ev cleared fda spec home use BHARAT REINECK Start: 08-13-2019 Glucose blood reagent strip BHARAT REINECK Start: 08-13-2019 IP CONSULT TO HOSPITALIST BHARAT REINECK Start: 08-13-2019 Gluc bld gluc mntr d ev cleared fda spec home use BHARAT REINECK Start: 08-13-2019 Glucose blood reagent strip BHARAT REINECK Start: 08-13-2019 TRANSFER PATIENT STEPHE N REINECK Start: 08-13-2019 Glucose blood reagent strip BHARAT REINECK Start: 08-13-2019 Gluc bld gluc mntr d ev cleared fda spec home use BHARAT REINECK Start: 08-13-2019 INITIATE OXYGEN THER APY PROTOCOL BHARAT REINECK Start: 08-13-2019 Glucose blood reagent strip BHARAT REINECK Start: 08-13-2019 Radiologic exam ches t single view BHARAT REINECK Start: 08-13-2019 Assay of magnesium STEP HEN REINECK Start: 08-13-2019 Assay of phosphorus inorganic BHARAT REINECK Start: 08-13-2019 Assay of thyroid stimulating hormone tsh BHARAT REINECK Start: 08-13-2019 Basic metabolic pane l calcium total BHARAT REINECK Start: 08-13-2019 Blood count complete auto&auto difrntl wbc BHARAT REINECK Start: 08-13-2019 Calcium ionized BHARAT REINECK Start: 08-13-2019 Prothrombin time STEPHE N REINECK Start: 08-13-2019 Thromboplastin time partial plasma/whole blood BHARAT REINECK Start: 08-13-2019 Gluc bld gluc mntr d ev cleared fda spec home use BHARAT REINECK Start: 08-13-2019 Iaadiadoo influenza PIERRE PHEN REINECK Start: 08-13-2019 Glucose blood reagent strip BHARAT REINECK Start: 08-13-2019 DAILY WEIGHTS BHARAT JOHNSON Start: 08-13-2019 INTAKE AND OUTPUT IMELDA EN REINECK Start: 08-13-2019 Gluc bld gluc mntr d ev cleared fda spec home use BHARAT REINECK Start: 08-13-2019 Assay of troponin quantitative BHARAT REINECK Start: 08-13-2019 Basic metabolic pane l calcium total BHARAT REINECK Start: 08-13-2019 Blood count complete auto&auto difrntl wbc BHARAT REINECK Start: 08-13-2019 C-reactive protein JEANETH HEN REINECK Start: 08-13-2019 Sedimentation rate r bc automated BHARAT REINECK Start: 08-13-2019 Antibody mycoplsm IMELDA EN REINECK Start: 08-13-2019 Iadna s aureus methi cillin resist amp probe tq BHARAT REINECK Start: 08-13-2019 Ecg routine ecg w/le ast 12 lds w/i&r BHARAT REINECK Start: 08-13-2019 EKG REPORT BHARAT POND Start: 08-13-2019 IP CONSULT TO CARDIOLOGY BHARAT REINECK Start: 08-13-2019 REASON FOR NO CHEMIC AL VTE PROPHYLAXIS BHARAT REINECK Start: 08-13-2019 BEDREST BHARAT POND Start: 08-13-2019 INITIATE OXYGEN THER APY PROTOCOL BHARAT REINECK Start: 08-13-2019 INTAKE AND OUTPUT IMELDA EN REINECK Start: 08-13-2019 NOTIFY PHYSICIAN (SPECIFY) BHARAT REINECK Start: 08-13-2019 PLACE INTERMITTENT PNEUMATIC COMPRESSION DEVICE BHARAT REINECK Start: 08-13-2019 RESPIRATORY CARE TANYA LUATION ONLY BHARAT REINECK Start: 08-13-[address] JAYNA REINECK Start: 08-13-2019 VITAL SIGNS BHARAT POND Start: 08-12-2019 PATIENT STATUS (DIRECT) BHARAT ARMANDO Plan of Treatment Date Care Activity Detail Author Start: 04-04-2034 Screening for malignant neoplasm of colon [facility] Start: 07-16-2025 Glaucoma screening Diabetes: Retinopathy Screening [facility] Start: 05-08-2025 Medicare Annual Wellness (AWV) Medicare Annual Wellness (AWV) [facility] Start: 04-06-2025 Urine screening for protein Diabetes: Urine Protein Screening [facility] Start: 04-04-2025 Screening for malignant neoplasm of breast Mammogram [facility] Start: 01-22-2025 End: 01-22-2025 Patient encounter procedure 01/22/2025 1:00 PM EDT Office Visit [facility] [address] [place] [address] Monika Castillo NP [address] [place] [address] [facility] Start: 12-19-2024 End: 12-19-2024 Patient encounter procedure 12/19/2024 11:15 AM EST Office Visit [facility] [address] [place] [phone] ToniHalle allred [address] [place] [address] [facility] [address] Start: 11-23-2024 Hemoglobin A1c measurement Diabetes: Hemoglobin A1C [facility] Start: 11-08-2024 End: 11-08-2025 25-hydroxyvitamin D3 [Mass/volume] in Serum or Plasma Vitamin D 25 hydroxy Lab Routine Hypocalcemia Expected: 11/08/2024 (Approximate), Expires: 11/08/2025 [facility] Work Phone: Comment on above: Expected: 11/08/2024 (Approximate), Expi res: 11/08/2025 Start: 10-24-2024 End: 10-24-2024 Patient encounter procedure 10/24/2024 2:40 PM EST Office Visit [facility] [address] [place] [phone] Monika Castillo, FABIOLA [address] [place] [address] Primary hypertension (CMS/HCC) (Primary Dx); 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/HCC); 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); Other specified diabetes mellitus without complications (CMS/HCC); 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); Anxiety and depression (CMS/HCC) [facility] Comment on above: Primary hypertension (CMS/HCC) (Primary Dx); 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/HCC); senior care (current) use of insulin (CMS/HCC); Other specified diabetes mellitus without complications (CMS/HCC); 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); Anxiety and depression (CMS/HCC) Start: 10-24-2024 End: 10-24-2025 Basic metabolic 1998 panel - Serum or Plasma Basic metabolic panel Lab Routine Type 2 diabetes mellitus with other circulatory complications ([facility]/HCC) Expected: 10/24/2024 (Approximate), Expires: 10/24/2025 [facility] Comment on above: Expected: 10/24/2024 (Approximate), Expi res: 10/24/2025 Start: 10-24-2024 End: 10-24-2025 CBC W Auto Differential panel - Blood CBC and differential Lab Routine Cerebrovascular accident (CVA), unspecified mechanism ([facility]) Expected: 10/24/2024 (Approximate), Expires: 10/24/2025 [facility] Comment on above: Expected: 10/24/2024 (Approximate), Expi res: 10/24/2025 Start: 10-24-2024 End: 10-24-2025 Thyrotropin [Units/volume] in Serum or Plasma TSH Lab Routine Hypothyroidism, unspecified type ([facility]/HCC) Expected: 10/24/2024 (Approximate), Expires: 10/24/2025 [facility] Work Phone: Comment on above: Expected: 10/24/2024 (Approximate), Expi res: 10/24/2025 Start: 10-24-2024 End: 10-24-2025 Thyroxine (T4) free [Mass/volume] in Serum or Plasma T4, free Lab Routine Hypothyroidism, unspecified type ([facility]/HCC) Expected: 10/24/2024 (Approximate), Expires: 10/24/2025 [facility] Comment on above: Expected: 10/24/2024 (Approximate), Expi res: 10/24/2025 Start: 01-25-2024 Patient referral [facility] Work Phone: Start: 08-19-2020 A1C test (Diabetic or Prediabetic) A1C test (Diabetic or Prediabetic) [facility] Start: 08-13-2020 TSH testing TSH testing [facility] Start: 01-16-2020 End: 01-16-2020 Patient encounter procedure 01/16/2020 Office Visit Infectious Diseases Chris Butler MD [address] [facility] [address] [place] [address] [phone] [facility] Start: 11-21-2019 End: 11-21-2019 Patient encounter procedure 11/21/2019 Office Visit Pulmonology Juanjo Coates MD [address] [facility] [address] [place] [address] [phone] [facility] Start: 10-24-2019 End: 10-24-2019 Office Visit [facility] Comment on above: Acute bloody pericarditis (Primary Dx); Coxsackie virus infection; Pneumonia of left lower lobe due to infectious organism (HCC); Pleural effusion on left; Type 2 diabetes mellitus without complication, without long-term current use of insulin (HCC) Start: 09-26-2019 End: 09-26-2019 Office Visit 09/26/2019 Office Visit Pulmonology Juanjo Coates MD [address] [address] [phone] [facility] [place] Start: 06-16-2019 Influenza vaccination Flu vaccine (#1) [place], [place] Start: 2006 Breast cancer screen Breast cancer screen [place], [place] Start: 2006 Colon cancer screen colonoscopy Colon cancer screen colonoscopy [place] Start: 2006 Shingles Vaccine (1 of 2) Shingles Vaccine (1 of 2) [place], [place] Start: 1977 Cervical cancer screen Cervical cancer screen [place], [place] Start: 1974 Diabetic microalbuminuria test Diabetic microalbuminuria test [place] Start: 1971 HIV screen HIV screen [place] Start: 1967 DTaP/Tdap/Td vaccine (1 - Tdap) DTaP/Tdap/Td vaccine (1 - Tdap) [place] Start: 1966 [object Object] Diabetic foot exam [place] Start: 1966 Diabetic retinal exam Diabetic retinal exam [place], [place] Start: 1966 Lipid screen Lipid screen [place] Start: 1962 Pneumococcal 0-64 years Vaccine (1 of 1 - PPSV23) Pneumococcal 0-64 years Vaccine (1 of 1 - PPSV23) [place], [place] Start: 1956 Hepatitis C screen Hepatitis C screen [place], [place] Start: 1956 Screening for malignant neoplasm of colon [facility] End: 09-18-2019 Coxsackie B Virus Abs Coxsackie B Virus Abs Lab Routine Coxsackie virus infection 1 Occurrences starting 09/18/2019 until 09/18/2019 [place] Comment on above: 1 Occurrences starting 09/18/2019 until 09/18/2019 Coxsackie B Virus Abs [place] End: 10-24-2019 Coxsackie B Virus Abs Coxsackie B Virus Abs Lab Routine Coxsackie virus infection 1 Occurrences starting 10/24/2019 until 10/24/2019 [facility] Work Phone: Comment on above: 1 Occurrences starting 10/24/2019 until 10/24/2019 Patient referral [facility] Work Phone: Payers Date Payer Category Payer Private Health Insurance [facility] [place] [id number] 2021 Medicare MEDICARE [id number] 2018 Unknown VERONICA SANDOVAL [facility] SAMREEN xxxxxxxxxxx 2018-Present [phone] [address] [place] [address] xxxxxxxxxxx [id number] 2018 Unknown [id number] 1959 Medicare [id number] 1959 Unknown [id number] 1956 Unknown [id number] [id number]. 175 1956 Unknown [id number] 2.16.840.1.838332.3.579.2. 175 1956 Unknown [id number] 2.16.840.1.116146.3.579.2. 175 1956 Unknown [id number] 2.16.840.1.940489.3.579.2. 593 1956 Unknown [id number] 2.16.840.1.174150.3.579.2. 593 1956 Unknown [id number] 2.16.840.1.021613.3.579.2. 173 1956 Unknown [id number] 2.16.840.1.325420.3.579.2. 173 1956 Unknown [id number] 2.16.840.1.501454.3.579.2. 173 1956 Unknown [id number] 2.16.840.1.299146.3.579.2. 173 1956 Unknown [id number] 2.16.840.1.753534.3.579.2. 173 1956 Unknown [id number] 2.16.840.1.044648.3.579.2. 1259 1956 Unknown [id number] 2.16.840.1.375897.3.579.2. 9 1956 Unknown [id number] 2.16.840.1.020731.3.579.2. 9 1956 Unknown [id number] 2.16.840.1.621720.3.579.2. 9 1956 Unknown [id number] 2.16.840.1.152532.3.579.2. 9 1956 Unknown [id number] [id number]. 1259 Social History Date Type Detail Facility Start: 09-04-2019 End: 03-14-2024 Tobacco smoking status NHIS Never smoker [place] Start: 09-04-2019 End: 10-24-2019 Alcohol intake Ex-drinker (finding) [facility] Start: 1955 Sex Assigned At Not on file [place] Start: 05-20-2024 End: 08-23-2024 Sex Assigned At [facility] Start: 1955 Sex Assigned At Female F [facility] Start: 03-14-2024 Tobacco use and exposure Smokeless tobacco non-user [facility] Start: 08-23-2024 End: 10-24-2024 Alcoholic beverage intake Current drinker of alcohol (finding) [facility] Start: 05-20-2024 End: 08-23-2024 History of Social function [facility] How often do you nee d to have someone help you when you read instructions, pamphlets, or other written material from your doctor or pharmacy [SILS] Never [facility] How often to you hav e a drink containing alcohol? 2-4 times a month [facility] How many standard drinks containing alcohol do you have on a typical day? 1 or 2 [facility] How often do you hav e 6 or more drinks on 1 occasion? Never [facility] In the past 12 month s, was there a time when you were not able to pay the mortgage or rent on time? No [facility] Start: 04-03-2024 Alcohol Comment drinks caffine [facility] Start: 03-07-2024 Gender identity Identifies as female gender (finding) [facility] Medical Equipment Procedure Code Equipment Code Equipment Origin al Text Equipment Identifier Dates Inject 1 each un sunday the skin Daily Start: 03-14-2024 Clinical Notes 08-02-2023 to 10-24-2024 Monika Castillo NP - 10/24/2024 4:45 PM Thad Castillo NP - 10/24/2024 4:44 PM Thad Castillo, FABIOLA - 10/24/2024 3:23 PM Thad Castillo NP - 10/24/2024 3:22 PM ESTPatient Instructions Note Date & Type Note Facility 10-24-2024 History of Presen t illness Narrative Associated Problem(s): Chronic left shoulder pain Suspect more bursitis, not cuff pathology Had ortho appt cancelled it, she will call them back to schedule Associated Problem(s): Hypothyroidism (CMS/HCC) Is currently taking her levo, however is feeling more fatigue Will check labs to see where TSH stands also check CBC and chem 8 Associated Problem(s): Pericardial effusion Does not want to follow with cardiology in [place] Had stress and ECHO late 2022, EF >55% Associated Problem(s): CVA (cerebral vascular accident) (CMS/HCC) Plavix and asa Pt provider who takes care of her diabetes had taken her off of her metformin Pt has not had her appt for her shoulder yet she did however she had to cancel it and has not rescheduled. Shoulder does feel worse and is effecting her left hand-pt states the pain is not every day it comes and goes and is unsure if it is related to any of her past falls Tanya Blake is a 69 y.o. female presents with chief complaint of Anxiety HPI: Anxiety Presents for follow-up visit. Patient reports no chest pain, compulsions, depressed mood, dizziness, excessive worry, insomnia, irritability, muscle tension, nausea, nervous/anxious behavior, palpitations, restlessness, shortness of breath or suicidal ideas. Symptoms occur occasionally. The severity of symptoms is mild. The quality of sleep is good. Compliance with medications is 76-100%. Shoulder Pain This is a chronic problem. The current episode started more than 1 year ago. Pertinent negatives include no fever. Depression Visit Type: follow-up Patient is not experiencing: anhedonia, compulsions, depressed mood, excessive worry, feelings of worthlessness, hypersomnia, insomnia, irritability, muscle tension, nervousness/anxiety, palpitations, restlessness, shortness of breath, suicidal ideas, suicidal planning, thoughts of and weight loss. Frequency of symptoms: occasionally Severity: mild Sleep quality: good Nighttime awakenings: none Compliance with medications: 76-100% Thyroid Problem Presents for follow-up visit. Symptoms include fatigue. Patient reports no anxiety, constipation, depressed mood, diarrhea, dry skin, hoarse voice, menstrual problem, palpitations, tremors or weight loss. The symptoms have been worsening. SUBJECTIVE: MEDICATIONS: Current Outpatient Medications Medication Instructions amLODIPine (NORVASC) 10 mg, Oral, Daily ASPIRIN 81 PO 81 mg, Daily atorvastatin (LIPITOR) 80 mg, Oral, Nightly BD Pen Needle Lauren 2nd Gen 32G X 4 MM misc 1 each, Daily carvedilol (COREG) 25 mg, Oral, 2 times daily with meals clopidogrel (PLAVIX) 75 mg, Oral, Daily escitalopram (LEXAPRO) 10 mg, Oral, Daily glipiZIDE (GLUCOTROL) 10 mg, Oral, Daily Lantus SoloStar 24 Units, Subcutaneous, Nightly levothyroxine (SYNTHROID, LEVOXYL) 112 mcg, Oral, Daily before breakfast Ozempic (0.25 or 0.5 MG/DOSE) 0.5 mg, Every 7 days pen needle 33G x 4 mm misc Injections subcutaneous daily ALLERGIES: No Known Allergies REVIEW OF SYMPTOMS: Review of Systems Constitutional: Positive for fatigue. Negative for appetite change, chills, fever, irritability and weight loss. HENT: Negative for congestion, ear pain, hoarse voice and sore throat. Eyes: Negative for pain, discharge, redness and visual disturbance. Respiratory: Negative for cough, shortness of breath and wheezing. Cardiovascular: Negative for chest pain, palpitations and leg swelling. Gastrointestinal: Negative for abdominal pain, blood in stool, constipation, diarrhea, nausea and vomiting. Genitourinary: Negative for difficulty urinating, dysuria, frequency and menstrual problem. Musculoskeletal: Positive for arthralgias. Negative for back pain, joint swelling and myalgias. Skin: Negative for rash and wound. Neurological: Negative for dizziness, tremors, seizures, syncope and headaches. Psychiatric/Behavioral: Positive for depression. Negative for behavioral problems, self-injury and suicidal ideas. The patient is not nervous/anxious and does not have insomnia. Hematological: Does not bruise/bleed easily. Endocrine: Negative for polydipsia, polyphagia and polyuria. Allergic/Immunologic: Negative for environmental allergies and food allergies. PAST MEDICAL HISTORY Past Medical History: Diagnosis Date Anxiety Depression (CMS/HCC) Diabetes mellitus (CMS/HCC) Disease of thyroid gland (CMS/HCC) Hypertension (CMS/HCC) Inflammatory bowel disease SOB (shortness of breath) Past Surgical History: Procedure Laterality Date FOOT SURGERY HYSTERECTOMY KNEE SURGERY Right PERICARDIUM SURGERY 08/18/2019 family history includes COPD in her mother; Heart disease in her father and mother; Ovarian cancer in her mother; Thyroid disease in her mother. OBJECTIVE: Visit Vitals BP 138/80 (BP Location: Left arm, Patient Position: Sitting, BP Cuff Size: Adult long) Pulse 78 Temp 98.8 F (Temporal) Resp 18 Ht 5' 4 Wt 191 lb 3.2 oz SpO2 94% BMI 32.82 kg/m Smoking Status Never BSA 1.98 m Physical Exam Vitals and nursing note reviewed. Constitutional: General: She is not in acute distress. Appearance: Normal appearance. She is obese. HENT: Head: Normocephalic and atraumatic. Right Ear: External ear normal. Left Ear: External ear normal. Nose: Nose normal. Mouth/Throat: Mouth: Mucous membranes are moist. Eyes: Extraocular Movements: Extraocular movements intact. Conjunctiva/sclera: Conjunctivae normal. Neck: Vascular: No carotid bruit. Cardiovascular: Rate and Rhythm: Normal rate and regular rhythm. Pulses: Normal pulses. Heart sounds: Normal heart sounds. Pulmonary: Effort: Pulmonary effort is normal. Breath sounds: Normal breath sounds. No wheezing or rales. Abdominal: General: Bowel sounds are normal. There is no distension. Palpations: Abdomen is soft. There is no mass. Tenderness: There is no abdominal tenderness. Musculoskeletal: Cervical back: Normal range of motion and neck supple. Right lower leg: No edema. Left lower leg: No edema. Comments: Painful ROM left shoulder, +tenderness AC joint line, cuff strength 5/5 +empty can and cross arm abduction Lymphadenopathy: Cervical: No cervical adenopathy. Skin: General: Skin is warm and dry. Capillary Refill: Capillary refill takes 2 to 3 seconds. Findings: No rash. Neurological: General: No focal deficit present. Mental Status: She is alert and oriented to person, place, and time. Psychiatric: Mood and Affect: Mood normal. Behavior: Behavior normal. Thought Content: Thought content normal. Judgment: Judgment normal. ASSESSMENT AND PLAN: Follow up in about 3 months (around 01/22/2025) for Recheck. 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 Take medications (pills or insulin) as directed. Monitor for s/s of hypoglycemia (sweaty, dizziness, nausea, vomiting, or shakiness). Watch for increase in thirst, urination, or appetite. Inspect feet frequently monitoring for open wounds , and also recommend yearly eye exam. Pt should attempt to remain as physically active as chronic conditions allow, as well as trying to follow a diet low in carbohydrates, and simple sugars. Continues with dr byers Current meds: ozempic, insulin, glipizide, statin Pericardial effusion Does not want to follow with cardiology in [place] Had stress and ECHO late 2022, EF >55% Primary hypertension (CMS/HCC) - Primary Please check blood pressure daily and record DASH diet Limit caffeine Take medication as directed Contact office if chest pain, pressure, dizziness, shortness of breath, swelling legs Recommend slow position changes Current meds: amlodipine, carvedilol, Relevant Medications amLODIPine (Norvasc) 10 MG tablet carvedilol (Coreg) 25 MG tablet Anxiety and depression (CMS/HCC) Is currently taking lexapro, no dose change at this time Has a new puppy which is helping Relevant Medications escitalopram (Lexapro) 10 MG tablet CVA (cerebral vascular accident) (CMS/HCC) Plavix and asa Relevant Medications clopidogrel (Plavix) 75 MG tablet Other Relevant Orders CBC and differential Chronic left shoulder pain Suspect more bursitis, not cuff pathology Had ortho appt cancelled it, she will call them back to 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 Take medications (pills or insulin) as directed. Monitor for s/s of hypoglycemia (sweaty, dizziness, nausea, vomiting, or shakiness). Watch for increase in thirst, urination, or appetite. Inspect feet frequently monitoring for open wounds , and also recommend yearly eye exam. Pt should attempt to remain as physically active as chronic conditions allow, as well as trying to follow a diet low in carbohydrates, and simple sugars. Continues with dr byers Current meds: ozempic, insulin, glipizide, statin Associated Problem(s): Primary hypertension (CMS/HCC) Please check blood pressure daily and record DASH diet Limit caffeine Take medication as directed Contact office if chest pain, pressure, dizziness, shortness of breath, swelling legs Recommend slow position changes Current meds: amlodipine, carvedilol, documented in this encounter [facility] 10-24-2024 Instructions Monika Castillo NP - 10/24/2024 2:40 PM EST Check thyroid lab to make sure thyroid is ok, Call ortho for appt documented in this encounter [facility] 08-23-2024 History of Presen t illness Narrative Associated Problem(s): 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/HCC) During the appointment today all pertinent labs, imaging, health maintenance, and glucose readings were reviewed. Encouraged to check blood glucose throughout the day with some fasting and some PP readings. They are to bring their glucose meter/cgm in to all appointments. All of the patients questions, treatment options, and current care plan and goals were discussed. A copy of this along with pertinent instructions were given to the patient at the end of the appointment. The patient voices understanding of all of this and is to call in between appointments if they have any problems or questions. Tanya Blake is doing very well and encouraged on this. , Will stay on current medications. She is to take her meter to work with her and check if she feels low. She can decrease her lantus to 20-22 units the night before work if she knows she will be really active that day. Images from the original note were not included. Tanya Blake is a 69 y.o. female presents with chief complaint of Diabetes HPI: Diabetes Mellitus Follow-up: Tanya Blake is here for follow-up evaluation of diabetes mellitus. The initial diagnosis of diabetes was made around 2020 Complications include: none She has been checking her blood glucose 2 times a day Bg running 150's in the am, 150's at bedtime Last A1c: 7.3 (05/23/24) Eye exam: 2022 [employer] [facility] Current concerns include: Bg have been improving overall between 150-170 Diet: watching carbs and portions sizes, Snacks: carrots with ranch, crackers with peanut butter, strawberries and rasperries Drinks: coffee with milk or half and half, water Exercise: none Hypoglycemia: none SUBJECTIVE: PROBLEM LIST SOCIAL ALLERGIES: Patient Active Problem List Diagnosis Hypothyroidism ([facility]) Type 2 diabetes mellitus with other circulatory complications ([facility]) 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) ([facility]) ([facility]) Acute bloody pericarditis Coxsackie virus infection Pericardial effusion Primary hypertension ([facility]) URI, acute Anxiety and depression ([facility]) Encounter for screening mammogram for malignant neoplasm of breast CVA (cerebral vascular accident) ([facility]) Encounter for subsequent annual wellness visit (AWV) in Medicare patient Class 1 obesity due to excess calories in adult Chronic left shoulder pain Long-term insulin use ([facility]) Social History Tobacco Use Smoking status: Never Smokeless tobacco: Never Vaping Use Vaping status: Never Used Substance Use Topics Alcohol use: Yes Comment: drinks caffine Drug use: Never No Known Allergies Synopsis [facility] 08/23/2024 07/02/2024 23:59 05/26/2024 01:00 Antidiabetic medications glipiZIDE 10 mg Daily PO - -Rx End 10 mg Daily PO Insulin Glargine 24 Units Nightly SC 24 Units Nightly SC 24 Units Nightly SC Semaglutide 0.5 mg q7 days SC (2 MG/3ML SOPN) Inject 0.5 mg under the skin every 7 (seven) days Inject 0.5 mg under the skin every 7 (seven) days Labs MHPT A1C 6.6 Outpatient prescription Medication marked as long-term Patient-reported REVIEW OF SYMPTOMS: Review of Systems Constitutional: Negative for appetite change, fatigue and unexpected weight change. Eyes: Negative for visual disturbance. Respiratory: Negative for cough, shortness of breath and wheezing. Cardiovascular: Negative for chest pain, palpitations and leg swelling. Neurological: Negative for numbness. Endocrine: Negative for polydipsia, polyphagia and polyuria. OBJECTIVE: 08/23/2024 10:18 AM 05/23/2024 10:37 AM 05/08/2024 4:06 PM Vitals BMI 31.93 kg/m2 31.76 kg/m2 31.93 kg/m2 Systolic 136 134 140 Diastolic 82 78 80 Heart Rate 60 78 72 Temp 97.9 F 98 F 98.5 F Resp 18 Height (in) 5' 4 5' 4 5' 4 Weight (lb) 186 185 186 Visit Report Report Report Report Physical Exam Constitutional: General: She is not in acute distress. Appearance: Normal appearance. Cardiovascular: Rate and Rhythm: Normal rate and regular rhythm. Heart sounds: No murmur heard. No friction rub. No gallop. Pulmonary: Breath sounds: Normal breath sounds. No wheezing, rhonchi or rales. Musculoskeletal: General: No swelling. Neurological: Mental Status: She is alert. ASSESSMENT AND PLAN: Problem List Items Addressed This Visit 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/HCC) During the appointment today all pertinent labs, imaging, health maintenance, and glucose readings were reviewed. Encouraged to check blood glucose throughout the day with some fasting and some PP readings. They are to bring their glucose meter/cgm in to all appointments. All of the patients questions, treatment options, and current care plan and goals were discussed. A copy of this along with pertinent instructions were given to the patient at the end of the appointment. The patient voices understanding of all of this and is to call in between appointments if they have any problems or questions. Tanya Blake is doing very well and encouraged on this. , Will stay on current medications. She is to take her meter to work with her and check if she feels low. She can decrease her lantus to 20-22 units the night before work if she knows she will be really active that day. 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 Patient's Medications New Prescriptions No medications on file Previous Medications AMLODIPINE (NORVASC) 10 MG TABLET Take 1 tablet (10 mg) by mouth Daily ATORVASTATIN (LIPITOR) 80 MG TABLET Take 1 tablet (80 mg) by mouth at bedtime BD PEN NEEDLE LAURNE 2ND GEN 32G X 4 MM MISC Inject 1 each under the skin Daily CARVEDILOL (COREG) 25 MG TABLET Take 1 tablet (25 mg) by mouth in the morning and 1 tablet (25 mg) in the evening. Take with meals. ESCITALOPRAM (LEXAPRO) 10 MG TABLET Take 1 tablet (10 mg) by mouth Daily GLIPIZIDE (GLUCOTROL) 10 MG TABLET Take 1 tablet (10 mg) by mouth Daily INSULIN GLARGINE (LANTUS SOLOSTAR) 100 UNIT/ML PEN Inject 24 Units under the skin at bedtime LEVOTHYROXINE (SYNTHROID, LEVOXYL) 112 MCG TABLET Take 1 tablet (112 mcg) by mouth in the morning. Take before meals. PEN NEEDLE 33G X 4 MM MISC Injections subcutaneous daily SEMAGLUTIDE,0.25 OR 0.5MG/DOS, (OZEMPIC, 0.25 OR 0.5 MG/DOSE,) 2 MG/3ML SOLUTION PEN-INJECTOR Inject 0.5 mg under the skin every 7 (seven) days Modified Medications No medications on file Discontinued Medications No medications on file I have reviewed and reconciled the history and medication list with the patient today. documented in this encounter [facility] 11-02-2023 Evaluation note Encounter Date Diagnosis Assessment Notes Oct, Depression with anxiety (ICD-10 - F41.8) [facility] Other 12-12-2023 Evaluation note* Encounter Date Diagnosis Assessment Notes Treatment Notes Treatment Clinical Notes Sep, Bronchitis (ICD-10 - J40) discussed her hx of several episodes of pneumonia and her daughter's decreased immune system. No crackles or wheezing on exam. Will treat empirically before her symptoms worsen. If they do, she understands to call for CXR or go to ER. [facility] Other 10-18-2023 Evaluation note* Encounter Date Diagnosis Assessment Notes Treatment Notes Treatment Clinical Notes Jul, Depression with anxiety (ICD-10 - F41.8) [facility] Other Evaluation note* Diagnosis Pleural effusion on left Unspecified pleural effusion documented in this encounter [employer] Phone: evaluation note* Diagnosis Coxsackie virus infection Coxsackievirus infection in conditions classified elsewhere and of unspecified site documented in this encounter [employer] Phone: [email or web address] noteNo InformationNort [employer] Other Evaluation note* Diagnosis Onset Date Resolution Status Type II diabetes mellitus [facility] Work Phone: Evaluation note* Diagnosis 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/HCC)- Primary 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) Anxiety and depression (CMS/HCC)- Primary Hypothyroidism, unspecified type (CMS/HCC) 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/HCC) Primary hypertension (CMS/HCC) Unspecified essential hypertension URI, acute Acute upper respiratory infections of unspecified site Acute bloody pericarditis Unspecified acute pericarditis Encounter for subsequent annual wellness visit (AWV) in Medicare patient- Primary Class 1 obesity due to excess calories with serious comorbidity and body mass index (BMI) of 31.0 to 31.9 in adult Chronic left shoulder pain Pain in joint, shoulder region 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)- Primary 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/HCC) Long-term insulin use (CMS/HCC) documented in this encounter [facility] Healthcare[facility]* Diagnosis 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/HCC)- Primary 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) Anxiety and depression (CMS/HCC)- Primary Hypothyroidism, unspecified type (CMS/HCC) 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/HCC) Primary hypertension (CMS/HCC) Unspecified essential hypertension URI, acute Acute upper respiratory infections of unspecified site Acute bloody pericarditis Unspecified acute pericarditis Encounter for subsequent annual wellness visit (AWV) in Medicare patient- Primary Class 1 obesity due to excess calories with serious comorbidity and body mass index (BMI) of 31.0 to 31.9 in adult Chronic left shoulder pain Pain in joint, shoulder region 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) ([facility]/HCC)- Primary 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/HCC) Long-term insulin use (CMS/HCC) Primary hypertension (CMS/HCC)- Primary Unspecified essential hypertension 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/HCC) 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) Other specified diabetes mellitus without complications (CMS/HCC) 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) ([facility]/HCC) Anxiety and depression (CMS/HCC) Hypothyroidism, unspecified type (CMS/HCC) Pericardial effusion Unspecified disease of pericardium Cerebrovascular accident (CVA), unspecified mechanism (CMS/HCC) Chronic left shoulder pain Pain in joint, shoulder region documented in this encounter [facility] HealthcareEvaluation note* Diagnosis 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/HCC)- Primary 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) Anxiety and depression (CMS/HCC)- Primary Hypothyroidism, unspecified type (CMS/HCC) 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/HCC) Primary hypertension (CMS/HCC) Unspecified essential hypertension URI, acute Acute upper respiratory infections of unspecified site Acute bloody pericarditis Unspecified acute pericarditis Encounter for subsequent annual wellness visit (AWV) in Medicare patient- Primary Class 1 obesity due to excess calories with serious comorbidity and body mass index (BMI) of 31.0 to 31.9 in adult Chronic left shoulder pain Pain in joint, shoulder region 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) ([facility]/HCC)- Primary 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/HCC) Long-term insulin use ([facility]/HCC) Primary hypertension ([facility]/HCC)- Primary Unspecified essential hypertension 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/HCC) 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 ([facility]/HCC) Other specified diabetes mellitus without complications ([facility]/HCC) 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) ([facility]) ([facility]) Anxiety and depression ([facility]/HCC) Hypothyroidism, unspecified type (CMS/HCC) Pericardial effusion Unspecified disease of pericardium Cerebrovascular accident (CVA), unspecified mechanism ([facility]/HCC) Chronic left shoulder pain Pain in joint, shoulder region Hypocalcemia- Primary documented in this encounter [facility] Narrative - Reported* Type Description Date Medical History Type 2 diabetes mellitus without complications Medical History Acquired hypothyroidism Medical History Depression Medical History Essential (primary) hypertension Medical History Irritable bowel synd george with both constipation and diarrhea Medical History Fatigue Surgical History HYST BSO Surgical History RIGHT KNEE ARTHROSCOPY/MENISECT ROM Surgical History FOOT SURGERY Hospitalization History SEE SURGICAL HX [facility] Other Hospital Discharge instructionsAmbulatory Orders* Referral to Diabetes Management Time Frame: 01/25/24, Location: None [facility] Work Phone: Assessments Diagnosis Coxsackie virus infection Coxsackievirus infection in conditions classified elsewhere and of unspecified site Diagnosis S/P pericardial window creation Pericardial effusion Unspecified disease of pericardium Advance Directives Documents on File Type Date Recorded Patient 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 Service Writer Expl anation Advance Directives and Living Will Power of Pneumatic System Conveyor Operator Latest Code Status on File Code Status Date Activated Date Inactivated Comments Full Code 08/21/2019 9:02 AM 08/24/2019 9:24 PM Full Code 08/16/2019 8:23 AM 08/21/2019 9:01 AM Full Code 08/12/2019 10:41 PM 08/16/2019 8:23 AM Documents on File Type Date Recorded Patient Automotive Service Writer Expl anation Advance Directives and Living Will Power of Pneumatic System Conveyor Operator Latest Code Status on File Code Status Date Activated Date Inactivated Comments Full Code 08/21/2019 9:02 AM 08/24/2019 9:24 PM Full Code 08/16/2019 8:23 AM 08/21/2019 9:01 AM Full Code 08/12/2019 10:41 PM 08/16/2019 8:23 AM Advance Directive Response Recorded Date/ Time Advance Directives No January 24, 2 024 10:20am Summary Purpose Family History Relationship Condition Age at Onset Recorded Date/T vega daughter Malignant neoplasm Unknown father Unknown Heart disease Unknown Not Specified Unknown Reason for Referral Status Reason Specialty Diagnoses / Procedures Re ferred By Contact Referred To Contact Closed Cardiology Diagnoses S/P pericardial window creation Pericardial effusion Procedures ECHO Limited HC 2-D ECHOCARDIOGRAM LTD OR [facility] 2D ECHO WITHOUT CONTRAST - WITH DOP/COLOR FLOW Manolo Conklin PA [address] [facility] [address] [address] Chief Complaint and Reason for Visit Chief Complaint Amb Documentation BS discussion Reason for Visit Type II diabetes colten litus Additional Source Comments INFORMATION SOURCE (unrecogn ized section and content) DATE CREATED AUTHOR 11/02/2019 [facility] DATE CREATED AUTHOR AUTHOR'S ORGANIZ ATION 03/24/2023 [facility] DATE CREATED AUTHOR AUTHOR'S ORGANIZ ATION 08/21/2023 [facility] DATE CREATED AUTHOR AUTHOR'S ORGANIZ ATION 10/29/2024 [facility] EPIC Reason for Visit (unrecogniz ed section and content) Status Reason Specialty Diagnoses / Procedures Re ferred By Contact Referred To Contact Closed Cardiology Diagnoses S/P pericardial window creation Pericardial effusion Procedures ECHO Limited HC 2-D ECHOCARDIOGRAM LTD OR FOLL 2D ECHO WITHOUT CONTRAST - WITH DOP/COLOR FLOW Manolo Conklin PA [address] [facility] [address] [address] Reason Comments Diabetes Reason Comments Anxiety Care Teams (unrecognized sec tion and content) Team Status: Active Member Role Status Dates Cordell Masters MD Primary Care Provider Active Team Status: Active Member Role Status Dates Cordell Masters MD Primary Care Provider Active Start: January 01, 2024 RHIANNON Hager Attending Provider Active Start : January 01, 2024 Team Status: Inactive Member Role Status Dates Cordell Masters MD Primary Care Provide r, Attending Provider Active Start: January 25, 2024 End: January 25, 2024 Refrigeration Engineer Relationship Specialty Start Date End Date Paul Lewis MD [address] [place] [phone] PCP - General Family Medicine 05/01/24 Monika Castillo NP [address] [place] [phone] Nurse Practitioner Family Medicine 04/03/24 Monika Castillo NP [address] [place] [phone] Nurse Practitioner Family Medicine 05/01/24 Refrigeration Engineer Relationship Specialty Start Date End Date Paul Lewis MD [address] [place] [phone] PCP - General Family Medicine 05/01/24 Monika Castillo NP [address] [place] [phone] Nurse Practitioner Family Medicine 04/03/24 Monika Castillo NP [address] [place] [phone] Nurse Practitioner Family Medicine 05/01/24 Refrigeration Engineer Relationship Specialty Start Date End Date Paul Lewis MD [address] [place] [phone] PCP - General Family Medicine 05/01/24 Monika Castillo NP [address] [place] [phone] Nurse Practitioner Family Medicine 04/03/24 Monika Castillo NP [address] [place] [phone] Nurse Practitioner Family Medicine 05/01/24 Refrigeration Engineer Relationship Specialty Start Date End Date Paul Lewis MD [address] [place] [phone] PCP - General Family Medicine 05/01/24 Monika Castillo NP [address] [place] [phone] Nurse Practitioner Family Medicine 04/03/24 Monika Castillo NP [address] [place] [phone] Nurse Practitioner Family Medicine 05/01/24 Refrigeration Engineer Relationship Specialty Start Date End Date Paul Lewis MD [address] [place] [phone] PCP - General Family Medicine 05/01/24 Monika Castillo NP [address] [place] [address] Nurse Practitioner Family Medicine 04/03/24 Monika Castillo NP [address] [place] [address] Nurse Practitioner Family Medicine 05/01/24 Goals (unrecognized section and content) Goals may be documented in a n alternate section FOR RECORDS PERTAINING TO PATIENTS WHO ARE OR HAVE BEEN ENROLLED IN A CHEMICAL DEPENDENCY/SUBSTANCEABUSE PROGRAM, SOME INFORMATION MAY BE OMITTED. This clinical summary was aggregated from multiple sources. Caution should be exercised in using it in the provision of clinical care. This summary normalizes information from multiple sources, and as a consequence, information in this document may materially change the coding, format and clinical context of patient data. In addition, data may be omitted in some cases. CLINICAL DECISIONS SHOULD BE BASED ON THE PRIMARY CLINICAL RECORDS. [facility] [employer] provides no warranty or guarantee of the accuracy or completeness of information in this document.
== END 2024-11-13 14:02 | disposition home or self-care (01) ==
PROVIDERS: PCP Nurse Practitioner; Visit Provider Nurse Practitioner
DX: E83.51 Hypocalcemia (principal)
CPT/HCPCS: 36415; 82306

== ENCOUNTER 2025-03-22 09:14 | Outpatient (OUT) | payer MEDICARE, OTHER, SELFPAY ==
--- OUTSIDE RECORDS SUMMARY | 2025-03-12 15:20 | XMS_ITS | Encounter Summary ---
Author Organization [facility] Address [address] [place] [address] Care Team Providers Care Pinking Machine Operator Name Role Phone Monika Castillo CHASER APPRENTICE Unavailable [phone] Paul Lewis MD Primary Care Provider [phone] Monika Castillo CHASER APPRENTICE Unavailable [phone] Reason for Visit * Reason Comments Hypertension Encounter Details Date Type Department Care Team (Late st Contact Info) Description 03/12/2025 3:20 PM EDT Office Visit [facility] [address] [place] [address] Monika Castillo, FABIOLA [address] [place] [address] Anxiety and depression (CMS/HCC) (Primary Dx); Class 1 obesity due to excess calories with serious comorbidity and body mass index (BMI) of 31.0 to 31.9 in adult; Hypothyroidism, unspecified type (CMS/HCC); Encounter for screening mammogram for malignant neoplasm of breast; Primary hypertension (CMS/HCC); Type 2 diabetes mellitus with other circulatory complications; Vitamin D deficiency Social History Tobacco Use Types Packs/Day Years Used Date Smoking Tobacco: Never Smokeless Tobacco: Never Alcohol Use Standard Drinks/Week Comments Not Currently 0 (1 standard drink = 0.6 oz pur e alcohol) drinks caffine B1300 Health Literacy Answer Date Recor ded How often do you need to hav e someone help you when you read instructions, pamphlets, or other written material from your doctor or pharmacy? Never 05/20/2024 Social Connection and Isolation Panel [NHANES] A nswer Date Recorded In a typical week, how many times do you talk on the phone with family, friends, or neighbors? Twice a week 05/20/2024 How often do you get togethe r with friends or relatives? Once a week 05/20/2024 How often do you attend samaritan or latter-day serv ices? Patient declined 05/20/2024 Active Member of Clubs or Organizations Not on f ile 05/20/2024 Attends Club or Organization Meetings Not on celia e 05/20/2024 Marital Status Not on file 05/20/2024 AUDIT-C Answer Date Recorded Q1: How often do you have a drink containing alc ohol? 2-4 times a month 05/20/2024 Average Number of Drinks Not on file 024 Frequency of Binge Drinking Not on file 02/2024 PHQ-2 Answer Date Recorded Patient Health Questionnaire-2 Score 0 12/26/2024 Housing Stability Vital Sign Answer Lbaze e Recorded In the last 12 months, was t here a time when you were not able to pay the mortgage or rent on time? No 05/20/2024 In the past 12 months, how m any times have you moved where you were living? 0 05/20/2024 At any time in the past 12 m [facility], were you homeless or living in a jail (including now)? No 05/20/2024 Comments Unknown Sex and Gender Information Value Date Recorded Sex Assigned at Not on file Legal Sex Female 6:52 PM EDT Gender Identity Female 03/07/2024 8:36 AM EDT Sexual Orientation Not on file documented as of this encounter Last Filed Vital Signs Vital Sign Reading Time Taken Comments Blood Pressure 142/82 03/12/2025 4:18 PM EDT Pulse 81 03/12/2025 3:38 PM EDT Temperature 36.7 C (98 F) 03/12/2025 3:38 PM EDT Respiratory Rate 19 03/12/2025 3:38 PM EDT Oxygen Saturation 93% 03/12/2025 3:38 PM EDT Inhaled Oxygen Concentration - - Weight 88.4 kg (194 lb 12.8 oz) 03/12/2025 3:38 PM EDT Height - - Body Mass Index 33.44 12/26/2024 11:02 AM EDT documented in this encounter Patient Instructions * Patient Instructions* Monika Castillo NP - 03/12/2025 3:20 PM EDT Increase escitalopram to 20mg documented in this encounter Progress Notes * TANIYA KENNEY - 03/12/2025 3:20 PM EDT Pt would like a vit D refill 02 stats range 89-93 wheezing Pt states she does not feel SOB or tightness in her chest * Monika Castillo NP - 03/12/2025 3:20 PM EDT Images from the original note were not included. Cheri Blake is a 69 y.o. female presents with chief complaint of Hypertension HPI: Depression/anxiety: taking lexapro, no SI/HI/hallucinations, going through life and the motions, some crying, irritate/aggitate easily, sleeping takes an OTC sleep aid, puppy helps. Would like to increase lexapro Hypertension This is a chronic problem. The current episode started more than 1 year ago. The problem is controlled. Pertinent negatives include no blurred vision, chest pain, headaches, palpitations, peripheral edema or shortness of breath. There are no associated agents to hypertension. Risk factors for coronary artery disease include diabetes mellitus, dyslipidemia and sedentary lifestyle. Past treatments include beta blockers and calcium channel blockers. The current treatment provides significant improvement. There are no compliance problems. Identifiable causes of hypertension include a thyroid problem. Thyroid Problem Presents for follow-up visit. Symptoms include anxiety and depressed mood. Patient reports no constipation, diarrhea, hair loss, hoarse voice, leg swelling, palpitations, tremors, weight gain or weight loss. The symptoms have been stable. SUBJECTIVE: MEDICATIONS: Current Outpatient Medications Medication Instructions amLODIPine (NORVASC) 10 mg, Oral, Daily ASPIRIN 81 PO 81 mg, Daily atorvastatin (LIPITOR) 80 mg, Oral, Nightly BD Pen Needle Lauren 2nd Gen 32G X 4 MM misc 1 each, Daily carvedilol (COREG) 25 mg, Oral, 2 times daily with meals cholecalciferol (VITAMIN D-3) 125 mcg, Oral, Daily escitalopram (LEXAPRO) 20 mg, Oral, Daily glipiZIDE (GLUCOTROL) 10 mg, Oral, Daily Lantus SoloStar 24 Units, Subcutaneous, Nightly levothyroxine (SYNTHROID, LEVOXYL) 112 mcg, Oral, Daily before breakfast Ozempic (0.25 or 0.5 MG/DOSE) 0.5 mg, Every 7 days ALLERGIES: No Known Allergies REVIEW OF SYMPTOMS: Review of Systems Constitutional: Negative for appetite change, chills, fever, weight gain and weight loss. HENT: Negative for congestion, ear pain, hoarse voice and sore throat. Eyes: Negative for blurred vision, pain, discharge, redness and visual disturbance. Respiratory: Negative for cough, shortness of breath and wheezing. Cardiovascular: Negative for chest pain, palpitations and leg swelling. Gastrointestinal: Negative for abdominal pain, blood in stool, constipation, diarrhea, nausea and vomiting. Genitourinary: Negative for difficulty urinating, dysuria and frequency. Musculoskeletal: Negative for arthralgias, back pain, joint swelling and myalgias. Skin: Negative for rash and wound. Neurological: Negative for dizziness, tremors, seizures, syncope and headaches. Psychiatric/Behavioral: Negative for behavioral problems, self-injury and suicidal ideas. The patient is nervous/anxious. Depression Hematological: Does not bruise/bleed easily. Endocrine: Negative [...] family history includes COPD in her mother; Cancer in her mother; Heart disease in her father and mother; Ovarian cancer in her mother; Thyroid disease in her mother. OBJECTIVE: Visit Vitals BP 142/82 (BP Location: Left arm, Patient Position: Sitting, BP Cuff Size: Large adult) Pulse 81 Temp 98 ??F (Temporal) Resp 19 Wt 194 lb 12.8 oz SpO2 93% BMI 33.44 kg/m?? Smoking Status Never BSA 2 m?? Physical Exam Vitals and nursing note reviewed. Constitutional: General: She is not in acute distress. Appearance: Normal appearance. HENT: Head: Normocephalic and atraumatic. Right Ear: External ear normal. Left Ear: External ear normal. Ears: Comments: Large amount cerumen removed Nose: Nose normal. No congestion or rhinorrhea. Mouth/Throat: Mouth: Mucous membranes are moist. Pharynx: No oropharyngeal exudate or posterior oropharyngeal erythema. Eyes: Extraocular Movements: Extraocular movements intact. Conjunctiva/sclera: Conjunctivae normal. Neck: Vascular: No carotid bruit. Cardiovascular: Rate and Rhythm: Normal rate and regular rhythm. Pulses: Normal pulses. Heart sounds: Normal heart sounds. Pulmonary: Effort: Pulmonary effort is normal. Breath sounds: Normal breath sounds. Abdominal: General: Bowel sounds are normal. There is no distension. Palpations: Abdomen is soft. There is no mass. Tenderness: There is no abdominal tenderness. Musculoskeletal: General: Normal range of motion. Cervical back: Normal range of motion and neck supple. Lymphadenopathy: Cervical: No cervical adenopathy. Skin: General: [...] ASSESSMENT AND PLAN: Follow up in about 6 weeks (around 04/23/2025) for Recheck. Problem List Items Addressed This Visit Hypothyroidism (CMS/HCC) Thyroid levels from 11/09 are stable Current dose : levo 112mcg daily Relevant Medications levothyroxine (Synthroid, Levoxyl) 112 MCG tablet Type 2 diabetes mellitus with other circulatory complications Relevant Medications atorvastatin (Lipitor) 80 MG tablet Primary hypertension (CMS/HCC) Relevant Medications amLODIPine (Norvasc) 10 MG tablet carvedilol (Coreg) 25 MG tablet Anxiety and depression (CMS/HCC) - Primary Is currently taking lexapro Relevant Medications escitalopram (Lexapro) 20 MG tablet Encounter for screening mammogram for malignant neoplasm of breast Relevant Orders Bilateral screening mammogram Class 1 obesity due to excess calories in adult Discussed with patient their BMI (actual, verses recommended). We have also discussed lifestyle modifications: attempts to perform physical activity as chronic conditions allow, also to monitor dietary intake: increasing protein/fruits/veggies and lowering carb intake (unless contraindicated). Limit sodas, juices, and sugary drinks. Currently takes GLP 1 for diabetes Vitamin D deficiency Relevant Medications cholecalciferol (Vitamin D-3) 125 MCG (5000 UT) capsule Other Relevant Orders Vitamin D 25 hydroxy * Monika Castillo NP - 03/12/2025 7:18 AM EDTAssociated Problem(s): Anxiety and depression (CMS/HCC) Is currently taking lexapro * Monika Castillo NP - 03/12/2025 7:17 AM EDTAssociated Problem(s): Hypothyroidism (CMS/HCC) Thyroid levels from 11/09 are stable Current dose : levo 112mcg daily * Monika Castillo NP - 03/12/2025 7:16 AM EDTAssociated Problem(s): Class 1 obesity due to excess calories in adult Discussed with patient their BMI (actual, verses recommended). We have also discussed lifestyle modifications: attempts to perform physical activity as chronic conditions allow, also to monitor dietary intake: increasing protein/fruits/veggies and lowering carb intake (unless contraindicated). Limit sodas, juices, and sugary drinks. Currently takes GLP 1 for diabetes documented in this encounter Plan of Treatment Upcoming Encounters Date Type Department Care Team (Late st Contact Info) Description 04/24/2025 10:00 AM EDT Office Visit [facility] [address] [place] [address] Monika Castillo NP [address] [place] [phone] 05/01/2025 10:30 AM EDT Office Visit [facility] [address] [place] [phone] Halle Kaur DO [address] [place] [id number] Scheduled Orders Name Type Priority Associated Diagnoses Orde r Schedule Bilateral screening mammogram Imaging Routine Encounter for screening mammogram for malignant neoplasm of breast Expected: 04/12/2025 (Approximate), Expires: 05/12/2026 Vitamin D 25 hydroxy Lab Routine Vitamin D deficiency Expected: 03/12/2025 (Approximate), Expires: 03/12/2026 documented as of this encounter Visit Diagnoses Diagnosis Anxiety and depression (CMS/HCC)- Primary Class 1 obesity due to excess calories with serious comorbidity and body mass index (BMI) of 31.0 to 31.9 in adult Hypothyroidism, unspecified type (CMS/HCC) Encounter for screening mammogram for malignant neoplasm of breast Primary hypertension (CMS/HCC) Unspecified essential hypertension Type 2 diabetes mellitus with other circulatory complications Vitamin D deficiency documented in this encounter Additional Health Concerns Assessment Noted Time PHQ-9 Depression Total Score: 7 05/08/20 24 4:15 PM EDT documented as of this encounter Care Teams Pinking Machine Operator Relationship Specialty Start Date End Date Paul Lewis MD [address] [place] [phone] PCP - General Family Medicine 05/01/24 Monika Castillo NP [address] [place] [phone] Nurse Practitioner Family Medicine 04/03/24 Monika Castillo NP [address] [place] [address] Nurse Practitioner Family Medicine 05/01/24 documented as of this encounter
--- OUTSIDE RECORDS SUMMARY | 2025-03-22 09:19 | XMS_ITS | Encounter Summary ---
Author Organization [facility] Address [address] [place] [address] Care Team Providers Care Manager Environmental Health And Safety Name Role Phone Karen Oneill MD Primary Care Provider [phone] Monika Castillo NP Unavailable [phone] Paul Lewis MD Primary Care Provider [phone] Monika Castillo NP Unavailable [phone] Encounter Details Date Type Department Care Team (Late st Contact Info) Description 04/04/2024 Orders Only [facility] [address] [place] [address] Karen Oneill MD [address] [place] [address] Social History Tobacco Use Types Packs/Day Years Used Date Smoking Tobacco: Never Smokeless Tobacco: Never Alcohol Use Standard Drinks/Week Comments Yes 0 (1 standard drink = 0.6 oz pur e alcohol) drinks caffine AUDIT-C Answer Date Recorded Q1: How often do you have a drink containing alc ohol? Monthly or less 03/14/2024 Q2: How many drinks containi ng alcohol do you have on a typical day when you are drinking? 1 or 2 03/14/2024 Q3: How often do you have si x or more drinks on one occasion? Never 03/14/2024 PHQ-2 Answer Date Recorded Patient Health Questionnaire-2 Score 2 04/03/2024 Comments Unknown Sex and Gender Information Value Date Recorded Sex Assigned at Not on file Legal Sex Female 6:52 PM EDT Gender Identity Female 03/07/2024 8:36 AM EDT Sexual Orientation Not on file documented as of this encounter Plan of Treatment Upcoming Encounters Date Type Department Care Team (Late Contact Info) Description 04/24/2025 10:00 AM EDT Office Visit [facility] [address] [place] [address] Monika Castillo, FABIOLA [address] [place] [address] 05/01/2025 10:30 AM EDT Office Visit [facility] [address] [place] [address] Halle Kaur, DO [address] [place] [address] documented as of this encounter Procedures Procedure Name Priority Date/Time Associated Diagnosis Comments COLONOSCOPY Routine 04/04/2024 3:31 PM EDT COLONOSCOPY Routine 04/04/2024 2:19 PM EDT MAMMOGRAM, BILATERAL, SCREEN:* Routine 04/04/2024 1:30 PM EDT documented in this encounter Results * Colonoscopy (04/04/2024 3:31 PM EDT) Anatomical Region Laterality Modality Endoscopy Hay Marin MD ENDOSCOPY PROCEDURE ORDERABLES F inal Result * Colonoscopy (04/04/2024 2:19 PM EDT) Anatomical Region Laterality Modality Endoscopy Hay Marin MD ENDOSCOPY PROCEDURE ORDERABLES F inal Result * MAMMOGRAM, BILATERAL, SCREEN:* (04/04/2024 1:30 PM EDT) Anatomical Region Laterality Modality Radiographic Elba ging Karen Oneill MD IMG XR PROCEDURES Final Result documented in this encounter Visit Diagnoses Not on filedocumented in this encounter Care Teams Manager Environmental Health And Safety Relationship Specialty Start Date End Date Karen Oneill MD PCP - General Family Medicine 04/03/24 04/30/24 Paul Lewis MD [address] [place] [address] PCP - General Family Medicine 05/01/24 Monika Castillo NP [address] [place] [phone] Nurse Practitioner Family Medicine 04/03/24 Monika Castillo NP [address] [place] [phone] Nurse Practitioner Family Medicine 05/01/24 documented as of this encounter
--- OUTSIDE RECORDS SUMMARY | 2025-03-22 09:19 | XMS_ITS | Encounter Summary ---
Author Organization [facility] Address [address] [facility] [place] [address] Care Team Providers Care Drapery Hemmer Automatic Name Role Phone Karen Oneill MD Primary Care Provider [phone] Karen Oneill MD Primary Care Provider [phone] Monika Castillo BUILDER'S LABOURER Unavailable [phone] Paul Lewis MD Primary Care Provider [phone] Monika Castillo BUILDER'S LABOURER Unavailable [phone] Encounter Details Date Type Department Care Team (Late st Contact Info) Description 03/21/2024 Abstract [facility] [address] [facility] [address] [place] [address] Halle Kaur, DO [address] [facility] [address] [place] [address] Social History Tobacco Use Types Packs/Day Years Used Date Smoking Tobacco: Never Smokeless Tobacco: Never Alcohol Use Standard Drinks/Week Comments Yes 0 (1 standard drink = 0.6 oz pur e alcohol) AUDIT-C Answer Date Recorded Q1: How often do you have a drink containing alc ohol? Monthly or less 03/14/2024 Q2: How many drinks containi ng alcohol do you have on a typical day when you are drinking? 1 or 2 03/14/2024 Q3: How often do you have si x or more drinks on one occasion? Never 03/14/2024 Comments Unknown Sex and Gender Information Value [...] [facility] [address] [place] [address] Monika Castillo, FABIOLA [address] [place] [address] 05/01/2025 10:30 AM EDT Office Visit [facility] [address] [place] [address] Halle Kaur DO [address] [place] [address] documented as of this encounter Visit Diagnoses Not on filedocumented in this encounter Care Teams Drapery Hemmer Automatic Relationship Specialty Start Date End Date Karen Oneill MD PCP - General Family Medicine 03/14/24 04/02/24 Karen Oneill MD PCP - General Family Medicine 04/03/24 04/30/24 Paul Lewis MD [address] [place] [address] PCP - General Family Medicine 05/01/24 Monika Castillo NP [address] [place] [address] Nurse Practitioner Family Medicine 04/03/24 Monika Castillo NP [address] [place] [address] Nurse Practitioner Family Medicine 05/01/24 documented as of this encounter
--- OUTSIDE RECORDS SUMMARY | 2025-03-22 09:19 | XMS_ITS | Encounter Summary ---
Author Organization [facility] Address [address] [facility] [place] [address] Care Team Providers Care Packaging Line Attendant Name Role Phone Monika Castillo FORGING PRESS OPERATOR Unavailable [phone] Paul Lewis MD Primary Care Provider [phone] Monika Castillo FORGING PRESS OPERATOR Unavailable [phone] Reason for Visit * Reason Comments Med Refill Encounter Details Date Type Department Care Team (Late st Contact Info) Description 09/26/2024 Refill [facility] [address] [place] [address] Halle Kaur, DO [address] [facility] [address] [place] [address] Primary hypertension (CMS/HCC) Social History Tobacco Use Types Packs/Day Years [...] week 05/20/2024 How often do you attend taoism or yarsanism serv ices? Patient declined 05/20/2024 Active Member [...] Date Recorded Patient Health Questionnaire-2 Score 0 08/23/2024 Housing Stability Vital Sign Answer Blaze e Recorded In the last 12 months, was t here a time when you were not able to pay the mortgage or rent on time? No 05/20/2024 In the past 12 months, how m any times have you moved where you were living? 0 05/20/2024 At any time in the past 12 m [facility], were you homeless or living in a halfway (including now)? No 05/20/2024 Comments Unknown Sex [...] 04/24/2025 10:00 AM EDT Office Visit [facility] [address] [place] [address] Monika Castillo NP [address] [place] [address] 05/01/2025 10:30 AM EDT Office Visit [facility] [address] [place] [address] Halle Kaur DO [address] [place] [address] documented as of this encounter Visit Diagnoses Diagnosis Primary hypertension (CMS/HCC) Unspecified essential hypertension documented in this encounter Additional Health Concerns Assessment Noted Time PHQ-9 Depression Total Score: 7 05/08/20 4:15 PM EDT documented as of this encounter Care Teams Packaging Line Attendant Relationship Specialty Start Date End Date Paul Lewis MD [address] [place] [place] [address] PCP - General Family Medicine 05/01/24 Monika Castillo NP [address] [place] [address] Nurse Practitioner Family Medicine 04/03/24 Monika Castillo NP [address] [place] [address] Nurse Practitioner Family Medicine 05/01/24 documented as of this encounter
--- OUTSIDE RECORDS SUMMARY | 2025-03-22 09:19 | XMS_ITS | Encounter Summary ---
Author Organization [facility] Address [address] [facility] [place] [address] Care Team Providers Care Transformation Manager Name Role Phone Karen Oneill MD Primary Care Provider [phone] Karen Oneill MD Primary Care Provider [phone] Monika Castillo EMERY WHEEL MOLDER Unavailable [phone] Paul Lewis MD Primary Care Provider [phone] Monika Castillo EMERY WHEEL MOLDER Unavailable [phone] Encounter Details Date Type Department Care Team (Late st Contact Info) Description 03/21/2024 Abstract [facility] [address] [facility] [address] [place] [address] Halle Kaur, DO [address] [facility] [address] [place] [address] Social History Tobacco Use Types Packs/Day Years [...] [facility] [address] [place] [address] Monika Castillo, FABIOLA [address] [place] [address] 05/01/2025 10:30 AM EDT Office Visit [facility] [address] [place] [address] Halle Kaur DO [address] [place] [address] documented as of this encounter Visit Diagnoses Not on filedocumented in this encounter Care Teams Transformation Manager Relationship Specialty Start Date End Date Karen Oneill MD PCP - General Family Medicine 03/14/24 04/02/24 Karen Oneill MD PCP - General Family Medicine 04/03/24 04/30/24 Paul Lewis MD [address] [place] [address] PCP - General Family Medicine 05/01/24 Monika Castillo NP [address] [place] [address] Nurse Practitioner Family Medicine 04/03/24 Monika Castillo NP [address] [place] [address] Nurse Practitioner Family Medicine 05/01/24 documented as of this encounter
--- OUTSIDE RECORDS SUMMARY | 2025-03-22 09:19 | XMS_ITS | Clinical Summary ---
Author Organization [facility] Address [address] [place] [address] Care Team Providers Care Application Tester Name Role Phone Monika Castillo NP Unavailable [phone] Paul Lewis MD Primary Care Provider [phone] Monika Castillo ENVIRONMENTAL PROJECT MANAGER Unavailable [phone] Allergies No known active allergies Medications Semaglutide,0.25 or 0.5MG/DOS, (Ozempic, 0.25 or 0.5 MG/DOSE,) 2 MG/3ML solution pen-injector Inject 0.5 mg under the skin every 7 (seven) days Active BD Pen Needle Lauren 2nd Gen 32G X 4 MM misc Inject 1 each under the skin Daily 4 Active insulin glargine (Lantus SoloStar) 100 UNIT/ML penIndications:Ty pe 2 diabetes mellitus with other circulatory complications Inject 24 Units under the skin at bedtime 15 mL 3 4 Active ASPIRIN 81 PO Take 81 mg by mouth Daily Active glipiZIDE (Glucotrol) 10 MG tabletIndications :Type 2 diabetes mellitus with other circulatory complications Take 1 tablet (10 mg) by mouth Daily 90 tablet 1 5 03/26/20 25 Active amLODIPine (Norvasc) 10 MG tabletIndications :Primary hypertension (CMS/HCC) Take 1 tablet (10 mg) by mouth Daily 90 tablet 1 5 06/10/20 25 Active atorvastatin (Lipitor) 80 MG tabletIndications :Type 2 diabetes mellitus with other circulatory complications Take 1 tablet (80 mg) by mouth at bedtime 90 tablet 1 5 06/10/20 25 Active carvedilol (Coreg) 25 MG tabletIndications :Primary hypertension (CMS/HCC) Take 1 tablet (25 mg) by mouth in the morning and 1 tablet (25 mg) in the evening. Take with meals. 180 tablet 1 5 06/10/20 25 Active levothyroxine (Synthroid, Levoxyl) 112 MCG tabletIndications :Hypothyroidism, unspecified type (CMS/HCC) Take 1 tablet (112 mcg) by mouth in the morning. Take before meals. 90 tablet 1 5 06/10/20 25 Active cholecalciferol (Vitamin D-3) 125 MCG (5000 UT) capsuleIndication s:Vitamin D deficiency Take 1 capsule (125 mcg) by mouth Daily 90 capsule 5 06/10/20 25 Active escitalopram (Lexapro) 20 MG tabletIndications :Anxiety and depression (CMS/HCC) Take 1 tablet (20 mg) by mouth Daily 90 tablet 5 06/10/20 25 Active amLODIPine (Norvasc) 10 MG tabletIndications :Primary hypertension (CMS/HCC) Take 1 tablet (10 mg) by mouth Daily 90 tablet 1 5 03/12/20 25 Discontinu ed(Reorder ) atorvastatin (Lipitor) 80 MG tabletIndications :Type 2 diabetes mellitus with other circulatory complications Take 1 tablet (80 mg) by mouth at bedtime 90 tablet 1 5 03/12/20 25 Discontinu ed(Reorder ) escitalopram (Lexapro) 10 MG tabletIndications :Anxiety and depression (CMS/HCC) Take 1 tablet (10 mg) by mouth Daily 90 tablet 1 5 03/12/20 25 Discontinu ed(Ineffec tive) levothyroxine (Synthroid, Levoxyl) 112 MCG tabletIndications :Hypothyroidism, unspecified type (CMS/HCC) Take 1 tablet (112 mcg) by mouth in the morning. Take before meals. 90 tablet 1 5 03/12/20 25 Discontinu ed(Reorder ) cholecalciferol (Vitamin D-3) 125 MCG (5000 UT) capsuleIndication s:Vitamin D deficiency Take 1 capsule (125 mcg) by mouth Daily 90 capsule 5 03/12/20 25 Discontinu ed(Reorder ) carvedilol (Coreg) 25 MG tabletIndications :Primary hypertension (CMS/HCC) Take 1 tablet (25 mg) by mouth in the morning and 1 tablet (25 mg) in the evening. Take with meals. 180 tablet 1 5 03/12/20 25 Discontinu ed(Reorder ) Active Problems Problem Noted Date Diagnosed Date Vitamin D deficiency 11/13/2024 Hypocalcemia 11/08/2024 [facility] (current) use of insulin 10/24/2024 Other specified diabetes mellitus without compli cations 10/24/2024 Assessment & Plan (10/24/2024 7:26 AM EST): Cont with dr kaur Encounter for subsequent [employer] wellness visit (AWV) in Medicare patient 05/08/2024 Assessment & Plan (05/08/2024 4:32 PM EDT): I have reviewed Ht/Wt/BMI, I have reviewed recommended vaccines for patient's age, as well as all recommended screenings I have reviewed available care everywhere notes as well. I have recommended eating a balanced diet, as well as activity as chronic conditions allow It is recommended that the patient have a yearly eye exam, as well as twice a year dental exams Fu in this office for wellness on a yearly basis Class 1 obesity due to excess calories in adult 05/08/2024 Assessment & Plan (03/12/2025 7:16 AM EDT): Discussed with patient their BMI (actual, verses recommended). We have also discussed lifestyle modifications: attempts to perform physical activity as chronic conditions allow, also to monitor dietary intake: increasing protein/fruits/veggies and lowering carb intake (unless contraindicated). Limit sodas, juices, and sugary drinks. Currently takes GLP 1 for diabetes Chronic left shoulder pain 05/08/2024 Assessment & Plan (10/24/2024 4:45 PM EST): Suspect more bursitis, not cuff pathology Had ortho appt cancelled it, she will call them back to schedule Assessment & Plan (05/08/2024 4:54 PM EDT): Suspect more bursitis, and less rotator cuff Will send to ortho for possible injection and management of this CVA (cerebral vascular accident) 04/08/2024 Assessment & Plan (10/24/2024 3:22 PM EST): Plavix and asa Encounter for screening mamm ogram for malignant neoplasm of breast 04/04/2024 Overview (04/04/2024): 07/06/23: [facility] normal Acute bloody pericarditis 04/03/2024 Assessment & Plan (04/03/2024 11:54 AM EDT): Follows every 6-12 months w cardiology Difficulty getting to her appt up in [place] d/t daughter being sick with pancreatic cancer ,cardiology will not fill her meds if they dont see her Primary hypertension 04/03/2024 Assessment & Plan (10/24/2024 7:23 AM EST): Please check blood pressure daily and record DASH diet Limit caffeine Take medication as directed Contact office if chest pain, pressure, dizziness, shortness of breath, swelling legs Recommend slow position changes Current meds: amlodipine, carvedilol, Assessment & Plan (04/03/2024 11:55 AM EDT): At goal, re ordered meds Check labs Obtain notes from PCP and cardiology Anxiety and depression 04/03/2024 Assessment & Plan (03/12/2025 7:18 AM EDT): Is currently taking lexapro Assessment & Plan (10/24/2024 4:44 PM EST): Is currently taking lexapro, no dose change at this time Has a new puppy which is helping Assessment & Plan (04/03/2024 11:56 AM EDT): Feels that she is doing adequate with her lexapro dose where it is Daughter has terminal cancer, another daughter heart problems 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 Continues with dr kaur Current meds: ozempic, insulin, glipizide, statin Assessment & Plan (05/23/2024 9:04 PM EDT): During the appointment today all pertinent labs, [...] if they have any problems or questions. Cheri Blake is doing very well and encouraged on this. , Instructions given today include: Insulin instructions. Will stop metformin and increase her insulin. Would like to eventually wean off glipizide but can't do this yet. May consider increasing ozempic in the future as well. She gets this through patient assistance. Coxsackie virus infection 10/23/2019 Hypothyroidism 08/14/2019 Assessment & Plan (03/12/2025 7:17 AM EDT): Thyroid levels from 11/09 are stable Current dose : levo 112mcg daily Assessment & Plan (10/24/2024 4:44 PM EST): Is currently taking her levo, however is feeling more fatigue Will check labs to see where TSH stands also check CBC and chem 8 Assessment & Plan (04/03/2024 11:55 AM EDT): Continue current med at current dose Check labs Type 2 diabetes mellitus wit h other circulatory complications 08/14/2019 Assessment & Plan (12/26/2024 11:26 AM EDT): During the appointment today all pertinent labs, [...] if they have any problems or questions. Cheri Blake is doing very well and encouraged on this. , Will stay on current medications. , Instructions given today include: Insulin instructions and Dietary education Assessment & Plan (08/23/2024 10:47 AM EST): During the appointment today all pertinent labs, [...] if they have any problems or questions. Cheri Blake is doing very well and encouraged on this. , Will stay on current medications. She is to take her meter to work with her and check if she feels low. She can decrease her lantus to 20-22 units the night before work if she knows she will be really active that day. Assessment & Plan (04/03/2024 11:55 AM EDT): Continue following with dr kaur Assessment & Plan (03/14/2024 12:01 PM EDT): During the appointment today all pertinent labs, [...] if they have any problems or questions. Cheri Blake is struggling to gain control of their diabetes. I am very concerned for diabetes related complications. , Discussed dietary changes at length. Encouraged to limit simple carbs and focus more on healthy protein/fat with all meals and snacks. They should also avoid any sugary drinks. , Discussed importance of checking blood glucose regularly and bringing them in to their appointment in order for me to better adjust their medications. , Instructed on the proper insulin injection technique either in the abdomen, upper outer thigh, or back of the arm. They are to rotate injection sites to prevent scar tissue. , Instructions given today include: Hypoglycemia management, Insulin instructions, and Dietary education. Suspect that she has RACHEL. Would like to eventually get her off glipizide but can't do that yet. Will start lantus. Insulin Injections: Instructed on the physiology of insulin as well as administration of this. Discussed signs/symptoms of hypoglycemia and treatment if needed. Will increase ozempic and work on getting her set up through patient assistance for this to help with cost. Pericardial effusion 08/13/2019 Assessment & Plan (10/24/2024 3:23 PM EST): Does not want to follow with cardiology in [place] Had stress and ECHO late 2022, EF >55% Resolved Problems Problem Noted Date Diagnosed Date Resolved Date Long-term insulin use 08/23/20242024 Chronic bursitis of left shoulder 05/08/2024 05/08/2024 Assessment & Plan (05/08/2024 4:53 PM EDT): Suspect bursitis URI, acute 04/03/2024 10/24/2024 Assessment & Plan (04/03/2024 11:56 AM EDT): Will treat with atb d/t her co morbidities Augmentin, fluids, rest Fu if not better No acute distress at this time Encounters Date Type Department Care Team Description 03/12/2025 3:20 PM EDT Office Visit [facility] [address] [place] [address] Monika Castillo NP Anxiety and depression (CMS/HCC) (Primary Dx); Class 1 obesity due to excess calories with serious comorbidity and body mass index (BMI) of 31.0 to 31.9 in adult; Hypothyroidism, unspecified type (CMS/HCC); Encounter for screening mammogram for malignant neoplasm of breast; Primary hypertension (CMS/HCC); Type 2 diabetes mellitus with other circulatory complications; Vitamin D deficiency 01/26/2025 Refill [facility] [address] [place] [address] Monika Castillo NP Primary hypertension (CMS/HCC) 12/26/2024 11:15 AM EDT Office Visit [facility] [address] [place] [address] Halle Kaur DO 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) (Primary Dx); 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/HCC); [facility] (current) use of insulin (CMS/HCC) 12/26/2024 Abstract [facility] [address] [address] Halle Kaur DO 12/26/2024 Travel 12/26/2024 [facility] [address] [place] [address] Monika Castillo NP 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/HCC) from Last 3 Months Family History Medical History Relation Name Comments Heart disease Father Simone Rios COPD Mother Cheri Rios Cancer Mother Cheri Gabriel Heart disease Mother Cheri Rios Ovarian cancer Mother Cheri Rios Thyroid disease Mother Cheri Rios Relation Name Status Comments Daughter Alive 21- of diego creatic cancer at 46 years1- heart disease Father Simone Rios Mother Cheri Rios Son Alive 21 had open hea rt surgery1- hypertension Social History Tobacco Use Types Packs/Day Years Used Date Smoking Tobacco: Never Smokeless Tobacco: Never Tobacco Cessation:Counseling Given: Not Answered Alcohol Use Standard Drinks/Week Comments Not Currently [...] week 05/20/2024 How often do you attend oriental orthodox or rastafarian serv ices? Patient declined 05/20/2024 Active Member [...] 0 12/26/2024 Housing Stability Vital Sign Answer Blaze e Recorded In the last 12 months, was t here a time when you were not able to pay the mortgage or rent on time? No 05/20/2024 In the past 12 months, how m any times have you moved where you were living? 0 05/20/2024 At any time in the past 12 m [facility], were you homeless or living in a [facility] (including now)? No 05/20/2024 Comments Unknown Sex and Gender Information Value Date Recorded Sex Assigned at Not on file Legal Sex Female 6:52 PM EDT Gender Identity Female 03/07/2024 8:36 AM EDT Sexual Orientation Not on file Last Filed Vital Signs Vital Sign Reading Time Taken Comments Blood Pressure 142/82 03/12/2025 4:18 PM EDT Pulse 81 03/12/2025 3:38 PM EDT Temperature 36.7 C (98 F) 03/12/2025 3:38 PM EDT Respiratory Rate 19 03/12/2025 3:38 PM EDT Oxygen Saturation 93% 03/12/2025 3:38 PM EDT Inhaled Oxygen Concentration - - Weight 88.4 kg (194 lb 12.8 oz) 03/12/2025 3:38 PM EDT Height 162.6 cm (5' 4 ) 12/26/2024 11:0 2 AM EDT Body Mass Index 33.44 12/26/2024 11:02 AM EDT Plan of Treatment Upcoming Encounters Date Type Department Care Team (Late st Contact Info) Description 04/24/2025 10:00 AM EDT Office Visit [facility] [address] [place] [address] Monika Castillo, ENVIRONMENTAL PROJECT MANAGER [address] [place] [address] 05/01/2025 10:30 AM EDT Office Visit [facility] [address] [place] [phone] Halle Kaur DO [address] [place] [address] Health Maintenance Due Date Last Done Comments CT Colonography 1956 FIT-DNA 1956 FIT 1956 FOBT 1955 Sigmoidoscopy 1955 Diabetes: Hemoglobin A1C 03/28/2025 025, 08/23/2024, 05/23/2024, Additional history exists Mammogram 04/04/2025 04/04/2024 Diabetes: Urine Protein Screening 04/06/2025 024 Medicare Annual Wellness (AWV) 05/08/2025 0 05/08/2024, 05/08/2024, 05/08/2024 Diabetes: Retinopathy Screening 07/16/2025 Colonoscopy 04/04/2034 04/04/2024, 04/04/2024 Colorectal Cancer Screening 04/04/2034 Influenza Vaccine Discontinued Pneumococcal Vaccine: 65+ Years Discontinued Procedures Procedure Name Priority Date/Time Associated Diagnosis Comments POCT GLYCOSYLATED HEMOGLOBIN (HGB A1C) Routine 12/26/2024 11:15 AM EDT Type 2 diabetes mellitus with other circulatory complications ([facility]) COLONOSCOPY Routine 04/04/2024 2:19 PM EDT MAMMOGRAM, BILATERAL, SCREEN:* Routine 04/04/2024 1:30 PM EDT from Last 3 Months or Most Recently Relevant to Health Maintenance Results * POCT glycosylated hemoglobin (Hb A1C) docked device (12/26/2024 11:15 AM EDT) Hemoglobin A1C 6.9 Blood Venous blood specimen / Unknown 12/26/2024 11:15 AM EDT Halle Kaur DO POINT OF CARE TEST ENTER/E DIT ORDERABLES Final Result * Colonoscopy (04/04/2024 2:19 PM EDT) Anatomical Region Laterality Modality Endoscopy Hay Marin MD ENDOSCOPY PROCEDURE ORDERABLES F inal Result * MAMMOGRAM, BILATERAL, SCREEN:* (04/04/2024 1:30 PM EDT) Anatomical Region Laterality Modality Radiographic Elba ging aKren Oneill MD IMG XR PROCEDURES Final Result from Last 3 Months or Most Recently Relevant to Health Maintenance Insurance [employer] Care Teams Application Tester Relationship Specialty Start Date End Date Paul Lewis MD [address] [place] [address] PCP - General Family Medicine 05/01/24 Monika Castillo NP [address] [place] [address] [place] [address] Nurse Practitioner Family Medicine 04/03/24 Monika Castillo NP [address] [place] [address] Nurse Practitioner Family Medicine 05/01/24
--- OUTSIDE RECORDS SUMMARY | 2025-03-22 09:19 | XMS_ITS | Encounter Summary ---
Author Organization [facility] Address [address] [facility] [place] [address] Care Team Providers Care Land Survey Technician Name Role Phone Monika Castillo UNBUNDLER Unavailable [phone] Paul Lewis MD Primary Care Provider [phone] Monika Castillo UNBUNDLER Unavailable [phone] Encounter Details Date Type Department Care Team (Late st Contact Info) Description 12/26/2024 Abstract [facility] [address] [place] [address] Halle Kaur, DO [address] [facility] [address] [place] [address] Social History Tobacco Use Types Packs/Day Years [...] week 05/20/2024 How often do you attend islam or gnosticist serv ices? Patient declined 05/20/2024 Active Member [...] any time in the past 12 m [facility], were you homeless or living in a [facility] (including now)? No 05/20/2024 Comments Unknown Sex and Gender Information Value Date Recorded Sex Assigned at Not on file Legal Sex Female 6:52 PM EDT Gender Identity Female 03/07/2024 8:36 AM EDT Sexual Orientation Not on file documented as of this encounter Functional Status * Over the past 2 weeks, how often have you been bothered by any of the following problems? Question Answer Date of Assessment Author Little interest or pleasure in doing things Not at all 12/26/2024 11:02 AM EDT Genny Carrizales LPN Feeling down, depressed, or hopeless Not at all 12/26/2024 11:02 AM EDT Genny Carrizales LPN Patient Health Questionnaire-2 Score 0 12/26/2024 11:02 AM EDT Rivera Carrizales LPN documented as of this encounter Plan of Treatment Upcoming Encounters Date Type Department Care Team (Late st Contact Info) Description 04/24/2025 10:00 AM EDT Office Visit [facility] [address] [place] [address] Monika Castillo NP [address] [place] [address] 05/01/2025 10:30 AM EDT Office Visit [facility] [address] [place] [phone] Halle Kaur DO [address] [place] [address] documented as of this encounter Visit Diagnoses Not on filedocumented in this encounter Additional Health Concerns Assessment Noted Time PHQ-9 Depression Total Score: 7 05/08/20 4:15 PM EDT documented as of this encounter Care Teams Land Survey Technician Relationship Specialty Start Date End Date Paul Lewis MD [address] [place] [phone] PCP - General Family Medicine 05/01/24 Monika Castillo NP [address] [place] [address] Nurse Practitioner Family Medicine 04/03/24 Monika Castillo NP [address] [place] [id number] Nurse Practitioner Family Medicine 05/01/24 documented as of this encounter
--- OUTSIDE RECORDS SUMMARY | 2025-03-22 09:19 | XMS_ITS | Clinical Summary ---
Author Organization [facility] Address [address] [place] [address] Care Team Providers Care Global Implementation Manager Name Role Phone Karen Oneill MD Primary Care Provider [phone] Allergies No known active allergies Medications metFORMIN (GLUCOPHAGE) 500 MG tablet Take 500 mg by mouth nightly Active hyoscyamine (ANASPAZ;LEVSIN ) 125 MCG tablet Take 125 mcg by mouth every 4 hours as needed for Cramping Active levothyroxine (SYNTHROID) 150 MCG tablet Take 150 mcg by mouth Daily Active JANUVIA 100 MG tablet TAKE 1 TABLET BY MOUTH EVERY DAY 0 9 Active atorvastatin (LIPITOR) 80 MG tablet Take 1 tablet by mouth 3 Active clopidogrel (PLAVIX) 75 MG tablet Take 1 tablet by mouth daily 3 Active carvedilol (COREG) 25 MG tablet TAKE 1 TABLET BY MOUTH TWICE A DAY *NEED TO CALL FOR AN APPOINTMENT FOR FURTHER REFILLS* 180 tablet 3 Active Active Problems Problem Noted Date Diagnosed Date Coxsackie virus infection 10/23/2019 Pneumonia due to infectious organism 08/14/2019 Hypothyroidism 08/14/2019 Type 2 diabetes mellitus wit hout complication, without long-term current use of insulin 08/14/2019 Pericardial effusion 08/13/2019 Pleural effusion on left Atelectasis Bloody pleural effusion Acute bloody pericarditis Social History Tobacco Use Types Packs/Day Years Used Date Smoking Tobacco: Never Smokeless Tobacco: Never Alcohol Use Standard Drinks/Week Comments Not Currently 0 (1 standard drink = 0.6 oz pur e alcohol) Comments Unknown Sex and Gender Information Value Date Recorded Sex Assigned at Not on file Legal Sex Female 4:19 PM EST Gender Identity Not on file Sexual Orientation Not on file Last Filed Vital Signs Vital Sign Reading Time Taken Comments Blood Pressure 178/108 08/17/2023 10:16 AM EDT Pulse 90 10/24/2019 2:01 PM EST Temperature 36.9 C (98.5 F) 10/24/2019 2:00 PM EST Respiratory Rate 16 09/26/2019 3:58 PM EST Oxygen Saturation 97% 09/26/2019 3:58 PM EST Inhaled Oxygen Concentration - - Weight 81.2 kg (178 lb 15.9 oz) 023 10:16 AM EDT Height 165.1 cm (5' 5 ) 08/17/2023 10:1 6 AM EDT Body Mass Index 29.79 08/17/2023 10:16 AM EDT Plan of Treatment Health Maintenance Due Date Last Done Comments Diabetic foot exam 1966 Lipids 1966 Depression Screen 1968 Diabetic Alb to Cr ratio (uACR) test 1974 Diabetic retinal exam 1974 Hepatitis C screen 1974 DTaP/Tdap/Td vaccine (1 - Tdap) 1975 Pneumococcal 50+ years Vaccine (1 of 2 - PCV) 1975 Breast cancer screen 1996 Colonoscopy 2001 Colorectal Cancer Screen 2001 FIT/FOBT: Average risk 2001 Fecal-DNA (Cologuard): Average risk 2001 Sigmoidoscopy/CT colonography 2001 Shingles vaccine (1 of 2) 2006 DEXA (modify frequency per FRAX score) 2011 Respiratory Syncytial Virus (RSV) or age 60 yrs+ (1 - Risk 60-74 years 1-dose series) 2016 A1C test (Diabetic or Prediabetic) 08/19/2020 08/19/2019 GFR test (Diabetes, CKD 3-4, OR last GFR 15-59) 08/24/2020 08/24/2019, 08/23/2019, 08/22/2019, Additional history exists Annual Wellness Visit (Medicare) 09/11/2023 COVID-19 Vaccine ( season) 2024 Flu vaccine (Season Ended) 2025 Hepatitis A vaccine Aged Out No longe r eligible based on patient's age to complete this topic Hepatitis B vaccine Aged Out No longe r eligible based on patient's age to complete this topic Hib vaccine Aged Out No longer eligi ble based on patient's age to complete this topic Meningococcal (ACWY) vaccine Aged Out No longer eligible based on patient's age to complete this topic Meningococcal B vaccine Aged Out No l onger eligible based on patient's age to complete this topic Polio vaccine Aged Out No longer elig ible based on patient's age to complete this topic Procedures Procedure Name Priority Date/Time Associated Diagnosis Comments BASIC METABOLIC PANEL Routine 08/24/2019 4:49 AM EST HEMOGLOBIN A1C Routine 08/19/2019 7:37 AM EST from Last 3 Months or Most Recently Relevant to Health Maintenance Results * (ABNORMAL) Basic Metabolic Panel (08/24/2019 4:49 AM EST) Glucose 173(H) 70 - 99 mg/dL 08/24/2019 4:49 AM EST [facility] BUN 10 8 - 23 mg/dL 08/24/2019 4:49 AM EST [facility] Creatinine 0.54 0.50 - 0.90 mg/dL 08/24/2019 4:49 AM EST [facility] BUN/Creatinine Ratio NOT REPORTED 9 - 20 08/24/2019 4:49 AM EST [facility] Calcium 8.7 8.6 - 10.4 mg/dL 08/24/2019 4:49 AM EST [facility] Sodium 137 135 - 144 mmol/L 08/24/2019 4:49 AM EST [facility] Potassium 4.5 3.7 - 5.3 mmol/L 08/24/2019 4:49 AM EST [facility] Chloride 102 98 - 107 mmol/L 08/24/2019 4:49 AM EST [facility] CO2 23 20 - 31 mmol/L 08/24/2019 4:49 AM EST [facility] Anion Gap 12 9 - 17 mmol/L 08/24/2019 4:49 AM EST [facility] GFR Non- >60 >60 mL/min 08/24/2019 4:49 AM EST [facility] GFR >60 >60 mL/min 08/24/2019 4:49 AM EST [facility] GFR Comment 08/24/2019 4:49 AM EST [facility] Comment: Average GFR for 60-69 years old: 85 mL/min/1.73sq m Chronic Kidney Disease: <60 mL/min/1.73sq m Kidney failure: <15 mL/min/1.73sq m eGFR calculated using average adult body mass. Additional eGFR calculator available at: http://www.[employer]/multiple_crcl_2012.htm GFR Staging NOT REPORTED 08/24/2019 4:49 AM EST [facility] BLOOD SPECIMEN / Unknown 08/24/2019 4:49 AM EST 08/24/2019 4:59 AM EST us Manolo SHORT CHEMISTRY ORDERABLES Final Result Performing Organization Address [facility] Co de Phone Number [facility] [address] [place] [address] * (ABNORMAL) HEMOGLOBIN A1C (08/19/2019 7:37 AM EST) Hemoglobin A1C 7.4(H) 4.0 - 6.0 % 08/19/2019 7:37 AM EST [facility] Estimated Avg Glucose 166 mg/dL 08/19/2019 7:37 AM EST [facility] Comment: The ADA and AACC recommend providing the estimated average glucose result to permit better patient understanding of their HBA1c result. BLOOD SPECIMEN / Unknown 08/19/2019 7:37 AM EST 08/19/2019 7:51 AM EST us Laurent Flood MD CHEMISTRY ORDERABLES Final Resul t Performing Organization Address [facility] Co de Phone Number [facility] [address] [place] [address] from Last 3 Months or Most Recently Relevant to Health Maintenance Insurance MEDICARE [place] [id number] [facility] [place] Advance Directives * Full Code (Latest Code Status on File) Date Activated Date Inactivated Comments 08/21/2019 9:02 AM 08/24/2019 9:24 PM * Full Code Date Activated Date Inactivated Comments 08/16/2019 8:23 AM 08/21/2019 9:01 AM * Full Code Date Activated Date Inactivated Comments 08/12/2019 10:41 PM 08/16/2019 8:23 AM Care Teams Global Implementation Manager Relationship Specialty Start Date End Date Karen Oneill MD PCP - General Family Medicine 09/04/19
--- OUTSIDE RECORDS SUMMARY | 2025-03-22 09:19 | XMS_ITS | Encounter Summary ---
Author Organization [facility] Address [address] [place] [address] Care Team Providers Care Claim Benefit Specialist Name Role Phone Monika Castillo BARREL [employer]OOK Unavailable [phone] Paul Lewis MD Primary Care Provider Monika Castillo [employer]OOK Unavailable [phone] Reason for Visit * Reason Comments Med Refill Encounter Details Date Type Department Care Team (Late st Contact Info) Description 10/16/2024 Refill [facility] [address] [place] [address] Monika Castillo, FABIOLA [address] [place] [address] Hypothyroidism, unspecified type (CMS/HCC) Social History Tobacco Use Types Packs/Day [...] week 05/20/2024 How often do you attend protestant or methodist serv ices? Patient declined 05/20/2024 Active Member [...] any time in the past 12 m [facility], were you homeless or living in a fdc (including now)? No 05/20/2024 Comments Unknown Sex and Gender Information Value Date Recorded Sex Assigned at Not on file Legal Sex Female 6:52 PM EDT Gender Identity Female 03/07/2024 8:36 AM EDT Sexual Orientation Not on file documented as of this encounter Miscellaneous Notes * Telephone Encounter - Monika Castillo NP - 10/16/2024 8:15 PM EST Please contact pt, she needs a fu appt with me [place] documented in this encounter Plan of Treatment Upcoming Encounters Date Type Department Care Team (Late st Contact Info) Description 04/24/2025 10:00 AM EDT Office Visit [facility] [address] [place] [phone] Monika Castillo NP [address] [place] [address] 05/01/2025 10:30 AM EDT Office Visit [facility] [address] [place] [address] Halle Kaur, [address] [place] [address] documented as of this encounter Visit Diagnoses Diagnosis Hypothyroidism, unspecified type (CMS/HCC) documented in this encounter Additional Health Concerns Assessment Noted Time PHQ-9 Depression Total Score: 7 05/08/20 4:15 PM EDT documented as of this encounter Care Teams Claim Benefit Specialist Relationship Specialty Start Date End Date Pual Lewis MD [address] [place] [phone] PCP - General Family Medicine 05/01/24 Monika Castillo NP [address] [place] [phone] Nurse Practitioner Family Medicine 04/03/24 Monika Castillo NP [address] [place] [phone] Nurse Practitioner Family Medicine 05/01/24 documented as of this encounter
--- OUTSIDE RECORDS SUMMARY | 2025-03-22 09:20 | XMS_ITS | CCD ---
Author Organization [facility] Care Team Providers Care Telephone Sales Representative Name Role Phone Cordell Masters Primary Care [...] Unavailable CORDELL MASTERS Primary Care Unavailable Anna CONTENT PRODUCTION SPECIALIST, Monika Unavailable Joshua BROWNPaul Primary Care Provider Anna CONTENT PRODUCTION SPECIALIST, Monika Unavailable MARY KAY WOMACK Attending Unavailable MARY KAY WOMACK Referring Unavailable MONIKA CASTILLO Attending Unavailable MONIKA CASTILLO Attending Unavailable HALLE BYERS Attending Unavailable MONIKA CASTILLO Attending Unavailable HALLE BYERS Attending Unavailable HALLE BYERS Attending Unavailable MONIKA CASTILLO Attending Unavailable Medications Current Medications Medication Drug Class(es) Dates Sig (Normalized) Sig (Original) 3 ML semaglutide 1.34 MG/ML Pen Injector [Ozempic] (3 sources) Start: 03-10-2023 Ozempic (1 MG/DOSE) 4 MG/3ML as directed Subcutaneous February, Active aspirin 81 mg oral tablet (16 sources) Platelet Aggregation Inhibitor, Nonsteroidal Anti-inflammatory Drug take 81 mg by mouth once daily ASPIRIN 81 PO Take 81 mg by mouth Daily Active clopidogrel 75 mg oral tablet (20 sources) P2Y12 Platelet Inhibitor Start: 08-09-2024 End: [...] MOUTH EVERY DAY for 90 Active escitalopram 20 mg oral tablet (20 sources) Serotonin Reuptake Inhibitor Start: 03-12-2025 End: 06-10-2025 take 1 tablet by mouth once daily escitalopram (Lexapro) 20 MG tablet Indications: Anxiety and depression (CMS/HCC) Take 1 tablet (20 mg) by mouth Daily 90 tablet 03/12/2025 06/10/2025 Active Start: 04-03-2024 End: 03-12-2025 take 1 tablet by mouth once daily escitalopram (Lexapro) 10 MG tablet Indications: Anxiety and depression (CMS/HCC) Take 1 tablet (10 mg) by mouth Daily 90 tablet 1 10/24/2024 03/12/2025 Discontinued (Ineffective) Start: 01-01-2024 take 10 mg by mouth once daily Escitalopram Oxalate Active 10 MG PO Daily January 01, 2024 12:00am take 1 tablet by hailey th every twenty-four hours Lexapro 10 MG 1 tablet Orally Once a day for 30 days Active glipiZIDE 10 mg oral tablet (20 sources) Sulfonylurea Start: 12-26-2024 End: 03-26-2025 take 1 tablet by mouth once daily glipiZIDE (Glucotrol) 10 MG tablet Indications: Type 2 diabetes mellitus with other circulatory complications Take 1 tablet (10 mg) by mouth Daily 90 tablet 1 12/26/2024 03/26/2025 Active Start: 04-03-2024 take 1 tablet by hailey th once daily glipiZIDE (Glucotrol) 10 MG tablet [...] ml insulin glargine 100 unt/ml pen injector (19 sources) Insulin Analog Start: insulin glargine (Lantus SoloStar) 100 UNIT/ML pen Indications: Type 2 diabetes mellitus with other circulatory complications Inject 24 Units under the skin at bedtime 15 mL 3 05/23/2024 Active 24 hr metFORMIN hydrochloride 500 mg extended release oral tablet (13 sources) Biguanide Start: take 500 mg by mouth once daily [...] pen needle 33G x 4 mm misc (16 sources) Start: 03-14-2024 End: 12-26-2024 pen needle 33G x 4 mm misc Indications: 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/HCC) Injections subcutaneous daily 100 each 3 03/14/2024 12/26/2024 Discontinued (Therapy completed) Start: 03-14-2024 pen needle 33G x 4 mm misc Indications: 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/HCC) Injections subcutaneous daily 100 each 3 03/14/2024 Active Semaglutide (1 source) Start: 01-01-2024 Semaglutide Active 1 MG SUBCUT As Directed January 01, 2024 12:00am Semaglutide,0.25 or 0.5MG/DOS, (Ozempic, 0.25 or 0.5 MG/DOSE,) 2 MG/3ML solution pen-injector (19 sources) Semaglutide,0.25 or 0.5MG/DOS, (Ozempic, 0.25 or [...] Drug Class(es) Dates Sig (Normalized) Sig (Original) amLODIPine 10 mg oral tablet (20 sources) Dihydropyridine Calcium Channel Ryley Start: 04-03-2024 End: 06-10-2025 take 1 tablet by mouth once daily amLODIPine (Norvasc) 10 MG tablet Indications: Primary hypertension (CMS/HCC) Take 1 tablet (10 mg) by mouth Daily 90 tablet 1 10/24/2024 03/12/2025 Discontinued (Reorder) Start: 01-01-2024 take 10 mg by mouth once daily Amlodipine Active 10 MG PO Daily January 01, 2024 12:00am take 1 tablet by hailey th every twenty-four hours amLODIPine Besylate 10 MG 1 tablet Orally Once a day Active atorvastatin 80 mg oral tablet (20 sources) HMG-CoA Reductase Inhibitor Start: 04-03-2024 End: 06-10-2025 take 1 tablet by mouth at bedtime atorvastatin (Lipitor) 80 MG tablet Indications: Type 2 diabetes mellitus with other circulatory complications Take 1 tablet (80 mg) by mouth at bedtime 90 tablet 1 10/24/2024 03/12/2025 Discontinued (Reorder) Start: 01-01-2024 take 1 tablet by hailey th once daily Atorvastatin Active 0 .ROUTE .COMPLEX January 01, 2024 10:06am TAKE 1 TABLET BY MOUTH EVERY DAY FOR 90 DAYS Start: 01-01-2024 End: 01-01-2024 take 80 mg by mouth once daily Atorvastatin Discontinu ed 80 MG PO Daily 90 January 01, 2024 12:00am January 01, 2024 10:06am carvedilol 25 mg oral tablet (20 sources) alpha-Adrenergic Ryley, beta-Adrenergic Ryley Start: 04-03-2024 End: 06-10-2025 take 1 tablet by mouth in the morning carvedilol (Coreg) 25 MG tablet Indications: Primary hypertension (CMS/HCC) Take 1 tablet (25 mg) by mouth in the morning and 1 tablet (25 mg) in the evening. Take with meals. 180 tablet 1 01/27/2025 03/12/2025 Discontinued (Reorder) Start: 01-01-2024 take 25 mg by mouth [...] 2 times daily (with meals) 0 Active cholecalciferol 0.125 mg oral capsule (15 sources) Vitamin D Start: 11-13-2024 End: 06-10-2025 take 1 capsule by mouth once daily cholecalciferol (Vitamin D-3) 125 MCG (5000 UT) capsule Indications: Vitamin D deficiency Take 1 capsule (125 mcg) by mouth Daily 90 capsule 12/11/2024 03/12/2025 Discontinued (Reorder) levoFLOXacin 750 mg oral tablet (4 sources) Quinolone Antimicrobial Start: 01-01-2024 End: 01-25-2024 take 750 mg by mouth once daily Levofloxacin Discontinued 750 MG PO Daily January 01, 2024 12:00am January 25, 2024 10:46am take 1 tablet by mouth once pura y Levaquin 750 MG 1 tablet Orally Once a day for 5 days Active levothyroxine sodium 0.112 mg oral tablet (20 sources) l-Thyroxine Start: 10-16-2024 End: 06-10-2025 take 1 tablet by mouth before mealtime levothyroxine (Synthroid, Levoxyl) 112 MCG tablet Indications: Hypothyroidism, unspecified type (CMS/HCC) Take 1 tablet (112 mcg) by mouth in the morning. Take before meals. 90 tablet 1 10/24/2024 03/12/2025 Discontinued (Reorder) Start: 04-03-2024 take 1 tablet by hailey [...] 150 mcg by mouth Daily 0 Active 1 ml methylPREDNISolone acetate 40 mg/ml injection (4 sources) Corticosteroid Start: 11-20-2024 End: 11-20-2024 methylPREDNISolone acetate (DEPO-Medrol) injection 40 mg Start: 11-20-2024 End: 11-20-2024 40 mg, Intra-articular, Once PRN Procedure, Starting on Mon11/20/24 at 1623, For 1 dose Problems Active Problems Problem Classification Problem Date Documented Da te Episodic/Chronic Acute cerebrovascular disease (20 sources) Cerebrovascular accident; Translations: [Cerebral infarction, unspecified] Onset: 4 04-08-2024 Chronic Anxiety disorders (20 sources) Mixed anxiety and depressive disorder; Translations: [Other specified anxiety disorders] Onset: 4 Chronic Chronic obstructive pulmonary disease and bronchiectasis (2 sources) Bronchitis, not specified as acute or chronic; Translations: [BRONCHITIS NOT SPEC ACUTE/CHRON] Onset: 2 Episodic Diabetes mellitus with complications (20 sources) Type 2 diabetes mellitus with hyperglycemia; Translations: [Type 2 diabetes mellitus] Onset: 9 08-19-2024 Chronic Diabetes mellitus without complication (20 sources) Type 2 diabetes mellitus without complication; Translations: [Type 2 diabetes mellitus without complications] Onset: 9 08-14-2019 Chronic Essential hypertension (20 sources) Essential hypertension; Translations: [Essential (primary) hypertension] Onset: 4 04-03-2024 Chronic Malaise and fatigue (10 sources) Chronic fatigue, unspecified; Translations: [Fatigue] Onset: 3 Chronic Malaise and fatigue (6 sources) Fatigue; Translations: [Other fatigue] Episodic Mood disorders (6 sources) Depression; Translations: [Depression] Chronic Nutritional deficiencies (16 sources) Vitamin D deficiency; Translations: [Vitamin D deficiency, unspecified] Onset: 5 11-13-2024 Chronic Osteoarthritis (2 sources) Arthritis of left acromioclavicular joint; Translations: [Primary osteoarthritis, left shoulder] 11-20-2024 Chronic Other gastrointestinal disorders (1 source) Irritable bowel syndrome; Translations: [Mixed irritable bowel syndrome] Chronic Other lower respiratory disease (1 source) Other forms of dyspnea; Translations: [Other forms of dyspnea] Onset: 3 Episodic Other lower respiratory disease (1 source) Shortness of breath; Translations: [Shortness of breath] Onset: 3 Episodic Other non-traumatic joint disorders (4 sources) Disorder of shoulder; Translations: [Other specified joint disorders, left shoulder] 11-20-2024 Episodic Other non-traumatic joint disorders (2 sources) Pain in left shoulder; Translations: [Pain in joint, shoulder region] 11-19-2024 Episodic Other nutritional; endocrine; and metabolic disorders (20 sources) Obesity caused by energy imbalance; Translations: [Class 1 obesity due to excess calories in adult] Onset: 4 05-08-2024 Chronic Other nutritional; endocrine; and metabolic disorders (14 sources) Hypocalcemia; Translations: [Hypocalcemia] Onset: 5 11-08-2024 Chronic Other screening for suspected conditions (not mental disorders or infectious disease) (20 sources) Patient encounter status; Translations: [Encounter for screening mammogram for malignant neoplasm of breast] Onset: 4 04-04-2024 Episodic Thyroid disorders (20 sources) Hypothyroidism; Translations: [Hypothyroidism, unspecified] Onset: 9 08-14-2019 Chronic Past or Other Problems Problem Classification Problem Date Documented Da te Episodic/Chronic Mood disorders (19 sources) Mood disorders Onset: 05-08-2024 05-08-2024 Other aftercare (20 sources) Long-term current use of insulin; 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] Onset: 08-23-2024 Resolved: 10-24-2024 08-23-2024 Episodic Other connective tissue disease (19 sources) Bursitis of left shoulder; Translations: [Bursitis of left shoulder] Onset: 05-08-2024 Resolved: 05-08-2024 05-08-2024 Episodic Other non-traumatic joint disorders (20 sources) Chronic pain of left upper limb; Translations: [Pain in left shoulder] Onset: 05-08-2024 05-08-2024 Episodic Other upper respiratory infections (19 sources) Acute upper respiratory infection; Translations: [Acute [...] [S/P pericardial window creation] Episodic Viral infection (20 sources) Coxsackie virus disease; Translations: [Enterovirus infection, unspecified] Onset: 10-23-2019 10-23-2019 Episodic Results Test Name Value Interpretation Reference Range Facility HbA1c (Bld) [Mass fraction]o n 12-26-2024 Interpretation and review of laboratory results Normal [facility] - Hematology and Cell countson 12-26-2024 HbA1c (Bld) [Mass fraction] 6.9 % [facility] No Panel Informationon 11-20 Mary Kay Womack NP 11/20/2024 4:24 PM L Inj/Asp: L subacromial bursa on 11/20/2024 4:23 PM Indications: pain Details: 20 G needle, ultrasound-guided lateral approach Medications: 40 mg methylPREDNISolone acetate 40 MG/ML Outcome: tolerated well, no immediate complications Site cleaned with isopropyl alcohol Procedure, treatment alternatives, risks and benefits explained, specific risks discussed. Consent was given by the patient. [facility] XR Shoulder - left 2 Viewson 11-20-2024 Imaging Result: 11/20/2024: external AP, Grashey and scapular Y of left shoulder show humeral head to be well centered in the glenoid fossa without evidence of fracture or dislocation or degeneration. The acromioclavicular joint showed global degenerative changes with decreased joint space and marginal osteophytes noted. Lung zavala visualized on today's x-ray showed excellent lung markings. Impression no acute bony process left shoulder. Mary Kay Womack SENIOR LINUX SYSTEMS ENGINEER-SANFORIZER [facility] Radiology Study observation (narrative) [facility] TBH VITAMIN D 25 OHon 2024 VITAMIN D 6.3 ng/mL [facility] Comment on above: <20 ng/mL Vit D defi cient 20-<30 ng/mL Vit D insufficient 30-100 ng/mL Vit D sufficient >100 ng/mL Potential Toxicity [facility] ALL CBC WITH AUTO DIFFon BASOPHILS ABSOLUTE AUTO 0.1 [facility] Basophils/100 WBC (Bld) 0.8 % 0.2 - 2.0 % [facility] Eosinophils/100 WBC (Bld) 1.7 % 0.9 - 7.0 % [facility] Erythrocyte distribution width (RBC) [Ratio] 13.1 % 11.0 - 15.0 % [facility] Hematocrit (Bld) [Volume fraction] 42.6 % 36.0 - 48.0 % [facility] Hemoglobin (Bld) [Mass/Vol] 14.2 g/dL 12.0 - 16.0 g/dL [facility] IMMATURE GRANULOCYTES ABS AUTO 0.02 [facility] Immature granulocytes/100 WBC (Bld) 0.3 % 0.0 - 0.5 % [facility] Interpretation and review of laboratory results Abnormal [facility] LYMPHOCYTES ABSOLUTE AUTO 1.7 [facility] Lymphocytes/100 WBC (Bld) 25.4 % 20.5 - 60.0 % [facility] MCH (RBC) [Entitic mass] 31.2 pg 26.7 - 34.0 pg [facility] MCHC (RBC) [Mass/Vol] 33.3 g/dL 29.9 - 35.2 g/dL [facility] MCV (RBC) [Entitic vol] 93.6 fL 81.0 - 99.0 fL [facility] MONOCYTES ABSOLUTE AUTO 0.6 [facility] Monocytes/100 WBC (Bld) 8.6 % 1.7 - 12.0 % [facility] NEUTROPHILS ABSOLUTE AUTO 4.2 [facility] Neutrophils/100 WBC (Bld) 63.2 % 43.0 - 75.0 % [facility] Platelet mean volume (Bld) [Entitic vol] 9.3 fL Low 9.5 - 13.5 fL [facility] EO # 0.1 [facility] PLT 361 [facility] RBC 4.55 [facility] WBC 6.6 [facility] HbA1c (Bld) [Mass fraction]o n 08-23-2024 Interpretation and review of laboratory results Normal [facility] - Hematology and Cell countson 08-23-2024 HbA1c (Bld) [Mass fraction] 6.6 % [facility] CBC AUTO DIFFon 03-10-2023 BASO # 0.0 103/ul Normal 0.0-0.1 [facility] Comment on above: Performed By: #### C BC #### [facility] [address] [place] [address] Dr. Almaz Hayward Basophils/100 WBC (Bld) 0.5 % Normal 0.2-2.0 [facility] Comment on above: Performed By: #### C BC #### [facility] [address] [place] [address] Dr. Almaz Hayward EO # 0.0 103/ul Normal 0.0-0.7 [facility] Comment on above: Performed By: #### C BC #### [facility] [address] [place] [address] Dr. Almaz Hayward Eosinophils/100 WBC (Bld) 0.5 % Critically low 0.9-7.0 [facility] Comment on above: Performed By: #### C BC #### [facility] [address] [place] [address] Dr. Almaz Hayward Erythrocyte distribution width (RBC) [Ratio] 12.6 % Normal 11.0-15.0 [facility] Comment on above: Performed By: #### C BC #### [facility] [address] [place] [address] Dr. Almaz Hayward Hematocrit (Bld) [Volume fraction] 46.3 % Normal 36.0-48.0 [facility] Comment on above: Performed By: #### C BC #### [facility] [address] [place] [address] Dr. Almaz Hayward Hemoglobin (Bld) [Mass/Vol] 15.8 g/dL Normal 12.0-16.0 [facility] Comment on above: Performed By: #### C BC #### [facility] [address] [place] [address] Dr. Almaz Hayward IG # 0.02 10e3/ul Normal 0.00-0.03 [facility] Comment on above: Performed By: #### C BC #### [facility] [address] [place] [address] Dr. Almaz Hayward IG % 0.3 % Normal 0.0-0.5 [facility] Comment on above: Performed By: #### C BC #### [facility] [address] [place] [address] Dr. Almaz Hayward LYMPH # 1.3 103/ul Normal 1.2-3.8 [facility] Comment on above: Performed By: #### C BC #### [facility] [address] [place] [address] Dr. Almaz Hayward Lymphocytes/100 WBC (Bld) 22.8 % Normal 20.5-60.0 [facility] Comment on above: Performed By: #### C BC #### [facility] [address] [place] [address] Dr. Almaz Hayward MANUAL DIFF REQ NO Normal [facility] Comment on above: Performed By: #### C BC #### [facility] [address] [place] [address] Dr. Almaz Hayward MCH (RBC) [Entitic mass] 30.9 pg Normal 26.7-34.0 [facility] Comment on above: Performed By: #### C BC #### [facility] [address] [place] [address] Dr. Almaz Hayward MCHC (RBC) [Mass/Vol] 34.1 g/dL Normal 29.9-35.2 [facility] Comment on above: Performed By: #### C BC #### [facility] [address] [address] [address] Almaz Hayward MCV (RBC) [Entitic vol] 90.4 fL Normal 81.0-99.0 [facility] Comment on above: Performed By: #### C BC #### [facility] [address] [address] [address] Almaz Hayward MONO # 0.3 103/ul Normal 0.3-0.8 [facility] Comment on above: Performed By: #### C BC #### [facility] [address] [address] [address] Almaz Hayward Monocytes/100 WBC (Bld) 5.6 % Normal 1.7-12.0 [facility] Comment on above: Performed By: #### C BC #### [facility] [address] [place] [address] Dr. Almaz Hayward NEUT # 4.1 103/ul Normal 1.4-6.5 [facility] Comment on above: Performed By: #### C BC #### [facility] [address] [place] [address] Dr. Almaz Hayward Neutrophils/100 WBC (Bld) 70.3 % Normal 43.0-75.0 [facility] Comment on above: Performed By: #### C BC #### [facility] [address] [place] [address] Dr. Almaz Hayward Platelet mean volume (Bld) [Entitic vol] 9.1 fL Critically low 9.5-13.5 [facility] Comment on above: Performed By: #### C BC #### [facility] [address] [place] [address] Dr. Almaz Hayward PLT 321 103/ul Normal 150-450 [facility] Comment on above: Performed By: #### C BC #### [facility] [address] [address] [address] Almaz Hayward RBC 5.12 106/ul Normal 4.20-5.40 [facility] Comment on above: Performed By: #### C BC #### [facility] [address] [place] [address] Dr. Almaz Hayward WBC 5.9 103/ul Normal 4.0-11.0 [facility] Comment on above: Performed By: #### C BC #### [facility] [address] [place] [address] Dr. Almaz Hayward FREE T4on 03-10-2023 Free T4 [Mass/Vol] 1.09 ng/dL Normal 0.76-1.46 [facility] Comment on above: Performed By: #### F T4 #### [facility] [address] [place] [address] Dr. Almaz Hayward GLYCOHEMOGLOBIN A1Con 2022 ADA RECOMMENDATION SEE BELOW Normal [facility] Comment on above: Result Comment: ADA RECOMMENDED LIMIT 4.0 - 6.0 ADA THERAPEUTIC TARGET < 7.0 ACTION SUGGESTED > 7.0 Performed By: #### A 1C #### [facility] [address] [place] [address] Dr. Almaz Hayward Glucose [Mass/Vol] 278 mg/dL Normal [facility] Comment on above: Performed By: #### A 1C #### [facility] [address] [place] [address] Dr. Almaz Hayward HbA1c (Bld) [Mass fraction] 11.3 % Critically high 4.5-6.2 [facility] Comment on above: Performed By: #### A 1C #### [facility] [address] [place] [address] Dr. Almaz Hyaward PROF 14(COMP METB)on 023 Albumin [Mass/Vol] 3.8 g/dL Normal 3.4-5.0 [facility] Comment on above: Performed By: #### T SH, CMP #### [facility] [address] [place] [address] Dr. Almaz Hayward Albumin/Globulin [Mass ratio] 0.9 {ratio} Normal [facility] Comment on above: Performed By: #### T SH, CMP #### [facility] [address] [place] [address] Dr. Almaz Hayward ALP [Catalytic activity/Vol] 114 U/L Normal 46-116 [facility] Comment on above: Performed By: #### T SH, CMP #### [facility] [address] [place] [address] Dr. Almaz Hayward ALT [Catalytic activity/Vol] 25 U/L Normal 14-59 [facility] Comment on above: Performed By: #### T SH, CMP #### [facility] [address] [place] [address] Dr. Almaz Hayward Anion gap [Moles/Vol] 14.9 mmol/L Normal [facility] Comment on above: Performed By: #### T SH, CMP #### [facility] [address] [place] [address] Dr. Almaz Hayward AST [Catalytic activity/Vol] 12 U/L Critically low 15-37 [facility] Comment on above: Performed By: #### T SH, CMP #### [facility] [address] [place] [address] Dr. Almaz Hayward Bilirubin [Mass/Vol] 0.7 mg/dL Normal 0.2-1.0 [facility] Comment on above: Performed By: #### T SH, CMP #### [facility] [address] [place] [address] Dr. Almaz Hayward Calcium [Mass/Vol] 9.3 mg/dL Normal 8.5-10.1 [facility] Comment on above: Performed By: #### T SH, CMP #### [facility] [address] [place] [address] Dr. Almaz Hayward Chloride [Moles/Vol] 98 mmol/L Normal 98-107 [facility] Comment on above: Performed By: #### T SH, CMP #### [facility] [address] [place] [address] Dr. Almaz Hayward CO2 [Moles/Vol] 26.9 mmol/L Normal 21.0-32.0 [facility] Comment on above: Performed By: #### T SH, CMP #### [facility] [address] [place] [address] Dr. Almaz Hayward Creatinine [Mass/Vol] 0.89 mg/dL Normal 0.55-1.02 [facility] Comment on above: Performed By: #### T SH, CMP #### [facility] [address] [place] [address] Dr. Almaz Hayward EGFR-AF MONEGASQUE >60 Normal >=60 [facility] Comment on above: Performed By: #### T SH, CMP #### [facility] [address] [place] [address] Dr. Almaz Hayward EGFR-NON AF MONEGASQUE >60 Normal >=60 [facility] Comment on above: Performed By: #### T SH, CMP #### [facility] [address] [place] [address] Dr. Almaz Hayward Globulin (S) [Mass/Vol] 4.2 g/dL Normal [facility] Comment on above: Performed By: #### T SH, CMP #### [facility] [address] [place] [address] Dr. Almaz Hayward Glucose [Mass/Vol] 304 mg/dL Critically high 74-106 [facility] Comment on above: Performed By: #### T SH, CMP #### [facility] [address] [place] [address] Dr. Almaz Hayward Potassium [Moles/Vol] 3.8 mmol/L Normal 3.5-5.1 [facility] Comment on above: Performed By: #### T SH, CMP #### [facility] [address] [place] [address] Dr. Almaz Hayward Protein [Mass/Vol] 8.0 g/dL Normal 6.4-8.2 [facility] Comment on above: Performed By: #### T SH, CMP #### [facility] [address] [place] [address] Dr. Almaz Hayward Sodium [Moles/Vol] 136 mmol/L Normal 136-145 [facility] Comment on above: Performed By: #### T SH, CMP #### [facility] [address] [place] [address] Dr. Almaz Hayward Urea nitrogen [Mass/Vol] 10.0 mg/dL Normal 7.0-18.0 [facility] Comment on above: Performed By: #### T SH, CMP #### [facility] [address] [place] [address] Dr. Almaz Hayward Urea nitrogen/Creatinine [Mass ratio] 11.2 mg/mg Normal [facility] Comment on above: Performed By: #### T SH, CMP #### [facility] [address] [place] [address] Dr. Almaz Hayward TSHon 03-10-2023 TSH 2.289 uIU/mL Normal 0.358-3.740 [facility] Comment on above: Performed By: #### C VDTB #### [facility] [address] [place] [address] Dr. Almaz Hayward CBC AUTO DIFFon 04-08-2022 BASO # 0.1 103/ul Normal 0.0-0.1 [facility] Comment on above: Performed By: #### C VDTB #### [facility] [address] [place] [address] Dr. Almaz Hayward Basophils/100 WBC (Bld) 0.6 % Normal 0.2-2.0 [facility] Comment on above: Performed By: #### C VDTBH #### [facility] [address] [place] [address] Dr. Almaz Hayward EO # 0.1 103/ul Normal 0.0-0.7 [facility] Comment on above: Performed By: #### C VDTBH #### [facility] [address] [place] [address] Dr. Almaz Hayward Eosinophils/100 WBC (Bld) 1.2 % Normal 0.9-7.0 [facility] Comment on above: Performed By: #### C VDTBH #### [facility] [address] [place] [address] Dr. Almaz Hayward Erythrocyte distribution width (RBC) [Ratio] 12.9 % Normal 11.0-15.0 [facility] Comment on above: Performed By: #### C VDTBH #### [facility] [address] [place] [address] Dr. Almaz Hayward Hematocrit (Bld) [Volume fraction] 43.1 % Normal 36.0-48.0 [facility] Comment on above: Performed By: #### C VDTBH #### [facility] [address] [place] [address] Dr. Almaz Hayward Hemoglobin (Bld) [Mass/Vol] 14.5 g/dL Normal 12.0-16.0 [facility] Comment on above: Performed By: #### C VDTBH #### [facility] [address] [place] [address] Dr. Almaz Hayward IG # 0.04 10e3/ul Critically high 0.00-0.03 [facility] Comment on above: Performed By: #### C VDTBH #### [facility] [address] [place] [address] Dr. Almaz Hayward IG % 0.5 % Normal 0.0-0.5 [facility] Comment on above: Performed By: #### C VDTBH #### [facility] [address] [place] [address] Dr. Almaz Hayward LYMPH # 1.6 103/ul Normal 1.2-3.8 [facility] Comment on above: Performed By: #### C VDTBH #### [facility] [address] [place] [address] Dr. Almaz Hayward Lymphocytes/100 WBC (Bld) 20.1 % Critically low 20.5-60.0 [facility] Comment on above: Performed By: #### C VDTBH #### [facility] [address] [place] [address] Dr. Almaz Hayward MANUAL DIFF REQ NO Normal [facility] Comment on above: Performed By: #### C VDTBH #### [facility] [address] [place] [address] Dr. Almaz Hayward MCH (RBC) [Entitic mass] 31.3 pg Normal 26.7-34.0 [facility] Comment on above: Performed By: #### C VDTBH #### [facility] [address] [place] [address] Dr. Almaz Hayward MCHC (RBC) [Mass/Vol] 33.6 g/dL Normal 29.9-35.2 [facility] Comment on above: Performed By: #### C VDTBH #### [facility] [address] [place] [address] Dr. Almaz Hayward MCV (RBC) [Entitic vol] 93.1 fL Normal 81.0-99.0 [facility] Comment on above: Performed By: #### C VDTBH #### [facility] [address] [place] [address] Dr. Almaz Hayward MONO # 0.5 103/ul Normal 0.3-0.8 [facility] Comment on above: Performed By: #### C VDTBH #### [facility] [address] [place] [address] Dr. Almaz Hayward Monocytes/100 WBC (Bld) 7.0 % Normal 1.7-12.0 [facility] Comment on above: Performed By: #### C VDTBH #### [facility] [address] [place] [address] Dr. Almaz Hayward NEUT # 5.5 103/ul Normal 1.4-6.5 [facility] Comment on above: Performed By: #### C VDTBH #### [facility] [address] [place] [address] Dr. Almaz Hayward Neutrophils/100 WBC (Bld) 70.6 % Normal 43.0-75.0 [facility] Comment on above: Performed By: #### C VDTBH #### [facility] [address] [place] [address] Dr. Almaz Hayward Platelet mean volume (Bld) [Entitic vol] 9.1 fL Critically low 9.5-13.5 [facility] Comment on above: Performed By: #### C VDTBH #### [facility] [address] [place] [address] Dr. Almaz Hayward PLT 364 103/ul Normal 150-450 [facility] Comment on above: Performed By: #### C VDTBH #### [facility] [address] [place] [address] Dr. Almaz Hayward RBC 4.63 106/ul Normal 4.20-5.40 [facility] Comment on above: Performed By: #### C VDTBH #### [facility] [address] [place] [address] Dr. Almaz Hayward WBC 7.7 103/ul Normal 4.0-11.0 [facility] Comment on above: Performed By: #### C VDTBH #### [facility] [address] [place] [address] Dr. Almaz Hayward Covid-19 PCR ([facility])on 03-17 SARS-CoV-2 (COVID-19) RNA TI+probe Ql (Unsp spec) Not detected Normal NOT DETECTED [facility] Comment on above: Result Comment: When diagnostic [...] for this test is supported by the [place] of Health and Human Service's declaration that [...] used). Performed By: #### C VDTBH #### [facility] [address] [place] [address] Dr. Almaz Hayward FREE T4on 04-08-2022 Free T4 [Mass/Vol] 1.29 ng/dL Normal 0.76-1.46 [facility] Comment on above: Performed By: #### F T4 #### [facility] [address] [place] [address] Dr. Almaz Hayward GLYCOHEMOGLOBIN A1Con 2021 ADA RECOMMENDATION SEE BELOW Normal [facility] Comment on above: Result Comment: ADA RECOMMENDED LIMIT 4.0 - 6.0 ADA THERAPEUTIC TARGET < 7.0 ACTION SUGGESTED > 7.0 Performed By: #### A 1C #### [facility] [address] [address] [address] Almaz Hayward Glucose [Mass/Vol] 163 mg/dL Normal [facility] Comment on above: Performed By: #### A 1C #### [facility] [address] [address] [address] Almaz Hayward HbA1c (Bld) [Mass fraction] 7.3 % Critically high 4.5-6.2 [facility] Comment on above: Performed By: #### A 1C #### [facility] [address] [place] [address] Dr. Almaz Hayward LIPID PROFILEon 04-08-2022 CHOL-HDL RATIO NORM SEE BELOW Normal [facility] Comment on above: Result Comment: 3.3 - 4.4 LOW RISK 4.4 - 7.1 AVERAGE RISK 7.1 - 11.0 MODERATE RISK >11.0 HIGH RISK Performed By: #### T SH, CMP, LIPID #### [facility] [address] [place] [address] Dr. Almaz Hayward Cholesterol [Mass/Vol] 160 mg/dL Normal <=200 [facility] Comment on above: Performed By: #### T SH, CMP, LIPID #### [facility] [address] [place] [address] Dr. Almaz Hayward Cholesterol in HDL [Mass/Vol] 43 mg/dL Normal 40-60 [facility] Comment on above: Performed By: #### T SH, CMP, LIPID #### [facility] [address] [place] [address] Dr. Almaz Hayward Cholesterol in LDL [Mass/Vol] 66.6 mg/dL Normal [facility] Comment on above: Performed By: #### T SH, CMP, LIPID #### [facility] [address] [place] [address] Dr. Almaz Hayward Cholesterol.total/Ch olesterol in HDL [Mass ratio] 3.7 {ratio} Normal [facility] Comment on above: Performed By: #### T SH, CMP, LIPID #### [facility] [address] [address] [address] Almaz Hayward HDL NORMAL > or = 60 mg/dl - LO W CARDIOVASCULAR RISK <40 mg/dl - HIGH CARDIOVASCULAR RISK Normal [facility] Comment on above: Performed By: #### T SH, CMP, LIPID #### [facility] [address] [address] [address] Almaz Hayward LDL CALC NORMAL SEE BELOW Normal [facility] Comment on above: Result Comment: <100 mg/dl OPTIMAL 100 - 129 mg/dl NEAR OR ABOVE OPTIMAL 130 - 159 mg/dl BORDERLINE HIGH 160 - 189 mg/dl HIGH >190 mg/dl VERY HIGH Performed By: #### T SH, CMP, LIPID #### [facility] [address] [address] [address] Almaz Hayward Triglyceride [Mass/Vol] 252 mg/dL Critically high <=150 [facility] Comment on above: Performed By: #### T SH, CMP, LIPID #### [facility] [address] [address] [address] Almaz Hayward VLDL CALC 50.4 mg/dL Normal [facility] Comment on above: Performed By: #### T SH, CMP, LIPID #### [facility] [address] [address] [address] Almaz Hayward PROF 14(COMP METB)on 022 Albumin [Mass/Vol] 3.5 g/dL Normal 3.4-5.0 [facility] Comment on above: Performed By: #### T SH, CMP, LIPID #### [facility] [address] [place] [address] Dr. Almaz Hayward Albumin/Globulin [Mass ratio] 0.9 {ratio} Normal [facility] Comment on above: Performed By: #### T SH, CMP, LIPID #### [facility] [address] [address] [address] Almaz Hayward ALP [Catalytic activity/Vol] 110 U/L Normal 46-116 [facility] Comment on above: Performed By: #### T SH, CMP, LIPID #### [facility] [address] [address] [address] Almaz Hayward ALT [Catalytic activity/Vol] 26 U/L Normal 14-59 [facility] Comment on above: Performed By: #### T SH, CMP, LIPID #### [facility] [address] [address] [address] Almaz Hayward Anion gap [Moles/Vol] 12.9 mmol/L Normal [facility] Comment on above: Performed By: #### T SH, CMP, LIPID #### [facility] [address] [place] [address] Dr. Almaz Hayward AST [Catalytic activity/Vol] 10 U/L Critically low 15-37 [facility] Comment on above: Performed By: #### T SH, CMP, LIPID #### [facility] [address] [place] [address] Dr. Almaz Hayward Bilirubin [Mass/Vol] 0.8 mg/dL Normal 0.2-1.0 [facility] Comment on above: Performed By: #### T SH, CMP, LIPID #### [facility] [address] [place] [address] Dr. Almaz Hayward Calcium [Mass/Vol] 8.7 mg/dL Normal 8.5-10.1 [facility] Comment on above: Performed By: #### T SH, CMP, LIPID #### [facility] [address] [place] [address] Dr. Almaz Hayward Chloride [Moles/Vol] 104 mmol/L Normal 98-107 [facility] Comment on above: Performed By: #### T SH, CMP, LIPID #### [facility] [address] [place] [address] Dr. Almaz Hayward CO2 [Moles/Vol] 27.0 mmol/L Normal 21.0-32.0 [facility] Comment on above: Performed By: #### T SH, CMP, LIPID #### [facility] [address] [place] [address] Dr. Almaz Hayward Creatinine [Mass/Vol] 0.71 mg/dL Normal 0.55-1.02 [facility] Comment on above: Performed By: #### T SH, CMP, LIPID #### [facility] [address] [address] [address] Almaz Hayward EGFR-AF MONEGASQUE >60 Normal >=60 [facility] Comment on above: Performed By: #### T SH, CMP, LIPID #### [facility] [address] [address] [address] Almaz Hayward EGFR-NON AF MONEGASQUE >60 Normal >=60 [facility] Comment on above: Performed By: #### T SH, CMP, LIPID #### [facility] [address] [address] [address] Almaz Hayward Globulin (S) [Mass/Vol] 4.1 g/dL Normal [facility] Comment on above: Performed By: #### T SH, CMP, LIPID #### [facility] [address] [address] [address] Almaz Hayward Glucose [Mass/Vol] 169 mg/dL Critically high 74-106 [facility] Comment on above: Performed By: #### T WEN CMP, LIPID #### [facility] [address] [place] [address] Dr. Almaz Hayward Potassium [Moles/Vol] 3.9 mmol/L Normal 3.5-5.1 [facility] Comment on above: Performed By: #### T SH, CMP, LIPID #### [facility] [address] [place] [address] Dr. Almaz Hayward Protein [Mass/Vol] 7.6 g/dL Normal 6.4-8.2 [facility] Comment on above: Performed By: #### T SH, CMP, LIPID #### [facility] [address] [place] [address] Dr. Almaz Hayward Sodium [Moles/Vol] 140 mmol/L Normal 136-145 [facility] Comment on above: Performed By: #### T SH, CMP, LIPID #### [facility] [address] [address] [address] Almaz Hayward Urea nitrogen [Mass/Vol] 10.0 mg/dL Normal 7.0-18.0 [facility] Comment on above: Performed By: #### T SH, CMP, LIPID #### [facility] [address] [address] [address] Almaz Hayward Urea nitrogen/Creatinine [Mass ratio] 14.1 mg/mg Normal [facility] Comment on above: Performed By: #### T WEN, CMP, LIPID #### [facility] [address] [address] [address] Almaz Hayward TSHon 04-08-2022 TSH 0.096 uIU/mL Critically low 0.358-3.740 [facility] Comment on above: Performed By: #### T WEN, CMP, LIPID #### [facility] [address] [place] [address] Dr. Almaz Stewart Abon 11-02-2019 Dontae rose. B1 1:80 Normal <1:10 [facility] Comment on above: Performed By: #### C DP, TROPI, BMP, CRP, SED #### [facility] [address] [place] [phone] Equine Pharmacology Technician: MD Dontae Moran. B2 1:80 Normal <1:10 [facility] Comment on above: Performed By: #### C DP, TROPI, BMP, CRP, SED #### [facility] [address] [place] [id number] Equine Pharmacology Technician: MD Dontae Moran. B3 1:320 Normal <1:10 [facility] Comment on above: Performed By: #### C DP, TROPI, BMP, CRP, SED #### [facility] [address] [place] [id number] Equine Pharmacology Technician: MD Dontae Moran. B4 1:320 Normal <1:[address] [facility] Comment on above: Performed By: #### C DP, TROPI, BMP, CRP, SED #### [facility] [place], [place] [phone] Equine Pharmacology Technician: MD Dontae Moran. B5 1:20 Normal <1:10 [facility] Comment on above: Performed By: #### C DP, TROPI, BMP, CRP, SED #### [facility] [address] [place] [address] [phone] Equine Pharmacology Technician: MD Dontae Moran. B6 <1:10 Normal <1:10 [facility] Comment on above: Result Comment: (NOT E) INTERPRETIVE INFORMATION: Coxsackie B Virus Single positive antibody titers of greater than or equal to 1:80 may indicate past or current infection. Sero- conversion or an increase in titers between acute and convalescent sera of at least fourfold is considered strong evidence of current or recent infection. Performed by [facility], [address] [place] [id number] [email or web address], Clive Dowell MD, Lab. Director Performed By: #### C DP, TROPI, BMP, CRP, SED #### [facility] [address] [place] [address] [phone] Equine Pharmacology Technician: Campos Escobedo MD XR CHEST STANDARD (2 VW)Orde red By: Juanjo Coates on 10-21-2019 Interval decrease in the left effusion and improved aeration of the lung bases. No new airspace disease in the interval. [employer] Phone: EXAMINATION: TWO XRA Y VIEWS OF [...] appear unchanged. No acute osseous abnormality identified. [employer] Phone: [employer], [employer] Incoming Radiant Results From [employer] - 10/21/2019 1:50 PM EST EXAMINATION: TWO [...] No new airspace disease in the interval. [facility] [employer] Phone: Cult,Mycobacteriaon 10-07-20 19 Cult,Mycobacteria Specimen Description .THORACENTESIS FLUID Special Requests NOT REPORTED Direct Exam NO ACID FAST BACILLI SEEN (CONCENTRATED SMEAR) Culture NO GROWTH 44 DAYS Report Status FINAL 10/07/2019 [facility] Comment on above: Performed By: #### C DP, TROPI, BMP, CRP, SED #### [email or web address] [address] [place] [address] [phone] Equine Pharmacology Technician: Campos Escobedo MD Cult,Mycobacteria Specimen Description .PERICARDIAL FLUID Special Requests NOT REPORTED Direct Exam NO ACID FAST BACILLI SEEN (CONCENTRATED SMEAR) Culture NO GROWTH 45 DAYS Report Status FINAL 10/07/2019 [facility] Comment on above: Performed By: #### C DP, TROPI, BMP, CRP, SED #### [email or web address] [address] [place] [address] [phone] Equine Pharmacology Technician: Campos Escobedo MD Cult,Funguson 09-23-2019 Cult,Fungus Specimen Description .THORACENTESIS FLUID Special Requests NOT REPORTED Culture NO GROWTH 31 DAYS Report Status FINAL 09/23/2019 [facility] Comment on above: Performed By: #### C DP, TROPI, BMP, CRP, SED #### [email or web address] [address] [place] [address] [phone] Equine Pharmacology Technician: Campos Escobedo MD Cult,Fungus Specimen Description .HEART Special Requests .TISSUE Culture NO GROWTH 33 DAYS Report Status FINAL 09/23/2019 Normal [facility] Comment on above: Performed By: #### C DP, TROPI, BMP, CRP, SED #### [email or web address] [facility] [place] [address] Equine Pharmacology Technician: Campos Escobedo MD Cult,Fungus Specimen Description .PERICARDIAL FLUID Special Requests NOT REPORTED Culture NO GROWTH 33 DAYS Report Status FINAL 09/23/2019 [facility] Comment on above: Performed By: #### C DP, TROPI, BMP, CRP, SED #### [email or web address] [address] [place], [place] [id number] Equine Pharmacology Technician: Campos Escobedo MD ECHO Limitedon 09-04-2019 Transthoracic Echocardiography Report (TTE) Patient Name BLAKE Date of Study 09/04/2019 TANYA Date of 1955 Gender Female Age 64 year(s) Race Room Number Height: 65 inch, 165.1 cm Corporate ID [id number] Weight: 175 pounds, 79.4 kg # Patient Acct [id number] BSA: 1.87 m^2 BMI: 29.12 # kg/m^2 MR # [id number] [employer] Alessandra Henry Interpreting Physician Geoff Burr Fellow Referring Nurse Practitioner Interpreting Referring Physician HAN Story Fellow Type of Study TTE procedure:2D Echocardiogram, Limited Echo. Procedure Date Date: 09/04/2019 Start: 09:01 AM Study Location: [facility] Technical Quality: Good visualization History / Tech. [...] space suggestive of adipose tissue is seen. [facility] [place], [place] [employer], [employer] Incoming Cardio Results From [facility] - 09/04/2019 12:26 PM EST Transthoracic Echocardiography Report (TTE) Patient Name BLAKE Date of Study 09/04/2019 TANYA Date of 1955 Gender Female Age 64 year(s) Race Room Number Height: 65 inch, 165.1 cm Corporate ID [id number] Weight: 175 pounds, 79.4 kg # Patient Acct [id number] BSA: 1.87 m^2 BMI: 29.12 # kg/m^2 MR # [id number] [employer]ger Alessandra Henry Interpreting Physician Geoff Burr Fellow Referring Nurse Practitioner Interpreting Referring Physician HAN Story Fellow Type of Study TTE procedure:2D Echocardiogram, Limited Echo. Procedure Date Date: 09/04/2019 Start: 09:01 AM Study Location: [facility] Technical Quality: Good visualization History / Tech. [...] space suggestive of adipose tissue is seen. [facility], [place] Cult,Fluidon 08-29-2019 Cult,Fluid Specimen Description .THORACENTESIS FLUID Special Requests NOT REPORTED Direct Exam MODERATE NEUTROPHILS NO BACTERIA SEEN Gram stain made from cytocentrifuged specimen. Organisms and cells will be concentrated. Culture NO GROWTH 6 DAYS Report Status FINAL 08/29/2019 Normal [facility] Comment on above: Performed By: #### C DP, TROPI, BMP, CRP, SED #### [address] [address] Equine Pharmacology Technician: Campos Escobedo MD Fluid Cell Count and Diffon 08-27-2019 Other Cells MONOCYTES, MESOTHELI AL CELLS Normal [facility] Comment on above: Result Comment: The reference range and other method performance specifications have not been established for this body fluid. The test result must be integrated into the clinical context for interpretation. Performed By: #### C DP, TROPI, BMP, CRP, SED #### [address] [address] Equine Pharmacology Technician: Campos Escobedo MD LOIS Screenon 08-26-2019 LOIS Screen Negative Normal NEG [facility] Comment on above: Result Comment: This test was run on the [employer] LOIS test system. The system provides ten test results (HEp-2NA, dsDNA, SSA, SSB, Sm, CONSTRUCTION JOB COST ESTIMATOR, Scl-70, Leonor-1, Centromere and Histone analytes) from a single patient sample. A negative LOIS screen indicates that the specimen was negative for all ten markers. Performed By: #### C DP, TROPI, BMP, CRP, SED #### [address] [address] Equine Pharmacology Technician: Campos Escobedo MD LOIS Screen Negative Normal NEG [facility] Comment on above: Result Comment: This test was run on the [employer] LOIS test system. The system provides ten test results (HEp-2NA, dsDNA, SSA, SSB, Sm, CONSTRUCTION JOB COST ESTIMATOR, Scl-70, Leonor-1, Centromere and Histone analytes) from a single patient sample. A negative LOIS screen indicates that the specimen was negative for all ten markers. Performed By: #### C DP, TROPI, BMP, CRP, SED #### [facility] [address] [place] [phone] Equine Pharmacology Technician: Campos Escobedo MD Anti CCPon 08-26-2019 Anti CCP <1.5 Normal <4.0 [facility] Comment on above: Result Comment: Reference Range: 0.0-4.0 U/mL Non Reactive/Negative >4.0 U/mL Reactive/Positive Performed By: #### C DP, TROPI, BMP, CRP, SED #### [address] [address] Equine Pharmacology Technician: MD Dontae Moran 08-26-2019 Dontae rose. B1 1:160 Normal <1:10 [facility] Comment on above: Performed By: #### C DP, TROPI, BMP, CRP, SED #### [facility] [address] [place] [id number] Equine Pharmacology Technician: MD Dontae Moran. B2 1:320 Normal <1:10 [facility] Comment on above: Performed By: #### C DP, TROPI, BMP, CRP, SED #### [facility] [address] [place] [id number] Equine Pharmacology Technician: MD Dontae Moran. B3 1:160 Normal <1:10 [facility] Comment on above: Performed By: #### C DP, TROPI, BMP, CRP, SED #### [facility] [address] [place] [phone] Equine Pharmacology Technician: MD Dontae Moran. B4 1:160 Normal <1:10 [facility] Comment on above: Performed By: #### C DP, TROPI, BMP, CRP, SED #### [facility] [address] [phone] Equine Pharmacology Technician: MD Dontae Moran. B5 1:20 Normal <1:10 [facility] Comment on above: Performed By: #### C DP, TROPI, BMP, CRP, SED #### [facility] [address] [place] [address] [phone] Equine Pharmacology Technician: MD Dontae Moran. B6 <1:10 Normal <1:10 [facility] Comment on above: Result Comment: (NOT E) INTERPRETIVE INFORMATION: Coxsackie B Virus Single positive antibody titers of greater than or equal to 1:80 may indicate past or current infection. Sero- conversion or an increase in titers between acute and convalescent sera of at least fourfold is considered strong evidence of current or recent infection. Performed by [facility], [address] [place] [address] [id number] [email or web address], Clive Dowell MD, Lab. Director Performed By: #### C DP, TROPI, BMP, CRP, SED #### [address] [phone] Equine Pharmacology Technician: Campos Escobedo MD Cult,Aerobe/Anaerobeon 08-26 Cult,Aerobe/Anaerobe Specimen Descriptio n .PERITONEAL FLUID Special Requests NOT REPORTED Direct Exam FEW NEUTROPHILS NO BACTERIA SEEN Culture NO GROWTH 5 DAYS Report Status FINAL 08/26/2019 Normal [facility] Comment on above: Performed By: #### C DP, TROPI, BMP, CRP, SED #### [facility] [address] [place] [address] [phone] Equine Pharmacology Technician: Campos Escobedo MD Cult,Tissueon 08-26-2019 Cult,Tissue Specimen Description .HEART Special Requests NOT REPORTED Direct Exam RARE NEUTROPHILS NO BACTERIA SEEN Culture NO GROWTH 5 DAYS Report Status FINAL 08/26/2019 [facility] Comment on above: Performed By: #### C DP, TROPI, BMP, CRP, SED #### [address] [phone] Equine Pharmacology Technician: Campos Escobedo MD APTTon 08-24-2019 aPTT Coag (Bld) [Time] 23.9 s Normal 20.5-30.5 [facility] Comment on above: Performed By: #### C DP, TROPI, BMP, CRP, SED #### [address] [phone] Equine Pharmacology Technician: Campos Escobedo MD Basic Metabolic Profon 08-24 (cont.) [facility] Comment on above: Result Comment: Aver age GFR for 60-69 years old: 85 mL/min/1.73sq m Chronic Kidney Disease: <60 mL/min/1.73sq m Kidney failure: <15 mL/min/1.73sq m eGFR calculated using average adult body mass. Additional eGFR calculator available at: http://www.FlagTap.TORIA/multiple_crcl_2012.htm Performed By: #### C DP, TROPI, BMP, CRP, SED #### [address] [phone] Equine Pharmacology Technician: Campos Escoebdo MD Anion gap [Moles/Vol] 12 mmol/L Normal 9-17 [facility] Comment on above: Performed By: #### C DP, TROPI, BMP, CRP, SED #### [address] [phone] Equine Pharmacology Technician: Campos Escobedo MD Calcium [Mass/Vol] 8.7 mg/dL Normal 8.6-10.4 [facility] Comment on above: Performed By: #### C DP, TROPI, BMP, CRP, SED #### [facility] [address] [place] [address] Equine Pharmacology Technician: Campos Escobedo MD Chloride [Moles/Vol] 102 mmol/L Normal 98-107 [facility] Comment on above: Performed By: #### C DP, TROPI, BMP, CRP, SED #### [address] [address] Equine Pharmacology Technician: Campos Escobedo MD CO2 [Moles/Vol] 23 mmol/L Normal 20-31 [facility] Comment on above: Performed By: #### C DP, TROPI, BMP, CRP, SED #### [address] [address] Equine Pharmacology Technician: Campos Escobedo MD Creatinine [Mass/Vol] 0.54 mg/dL Normal 0.50-0.90 [facility] Comment on above: Performed By: #### C DP, TROPI, BMP, CRP, SED #### [address] [address] Equine Pharmacology Technician: Campos Escobedo MD GFR, Amer >60 Normal >60 [facility] Comment on above: Performed By: #### C DP, TROPI, BMP, CRP, SED #### [address] [address] Equine Pharmacology Technician: Campos Escobedo MD GFR,non Amer >60 Normal >60 [facility] Comment on above: Performed By: #### C DP, TROPI, BMP, CRP, SED #### [address] [address] Equine Pharmacology Technician: Campos Escobedo MD Glucose [Mass/Vol] 173 mg/dL High 70-99 [facility] Comment on above: Performed By: #### C DP, TROPI, BMP, CRP, SED #### [address] [address] Equine Pharmacology Technician: Campos Escobedo MD Potassium [Moles/Vol] 4.5 mmol/L Normal 3.7-5.3 [facility] Comment on above: Performed By: #### C DP, TROPI, BMP, CRP, SED #### [address] [address] Equine Pharmacology Technician: Campos Escobedo MD Sodium [Moles/Vol] 137 mmol/L Normal 135-144 [facility] Comment on above: Performed By: #### C DP, TROPI, BMP, CRP, SED #### [address] [address] Equine Pharmacology Technician: Campos Escobedo MD Urea nitrogen [Mass/Vol] 10 mg/dL Normal 8-23 [facility] Comment on above: Performed By: #### C DP, TROPI, BMP, CRP, SED #### [address] [address] Equine Pharmacology Technician: Campos Escobedo MD BUN/CRE Ratio NOT REPORTED Normal 9-20 [facility] Comment on above: Performed By: #### C DP, TROPI, BMP, CRP, SED #### [address] [address] Equine Pharmacology Technician: Campos Escobedo MD Staging: NOT REPORTED Normal [facility] Comment on above: Performed By: #### C DP, TROPI, BMP, CRP, SED #### [address] [address] Equine Pharmacology Technician: Campos Escobedo MD CBC with Diffon 08-24-2019 Abs. Basophil 0.10 k/uL Normal 0.00-0.20 [facility] Comment on above: Performed By: #### C DP, TROPI, BMP, CRP, SED #### [facility] [address] [place] [address] Equine Pharmacology Technician: Campos Escobedo MD Abs.Imm.Granulocyte 0.12 k/uL Normal 0.00-0.30 [facility] Comment on above: Performed By: #### C DP, TROPI, BMP, CRP, SED #### [address] [address] Equine Pharmacology Technician: Campos Escobedo MD Abs.Neutrophil (Seg) 4.17 k/uL Normal 1.50-8.10 [facility] Comment on above: Performed By: #### C DP, TROPI, BMP, CRP, SED #### [address] [address] Equine Pharmacology Technician: Campos Escobedo MD Basophils/100 WBC (Bld) 1 % Normal 0-2 [facility] Comment on above: Performed By: #### C DP, TROPI, BMP, CRP, SED #### [place] [address] Equine Pharmacology Technician: Campos Escobedo MD Eosinophils (Bld) [#/Vol] 0.29 10*3/uL Normal 0.00-0.44 [facility] Comment on above: Performed By: #### C DP, TROPI, BMP, CRP, SED #### [address] [address] Equine Pharmacology Technician: Campos Escobedo MD Eosinophils/100 WBC (Bld) 4 % Normal 1-4 [facility] Comment on above: Performed By: #### C DP, TROPI, BMP, CRP, SED #### [place] [address] Equine Pharmacology Technician: Campos Escobedo MD Erythrocyte distribution width (RBC) [Ratio] 12.8 % Normal 11.8-14.4 [facility] Comment on above: Performed By: #### C DP, TROPI, BMP, CRP, SED #### [address] [address] Equine Pharmacology Technician: Campos Escobedo MD Hematocrit (Bld) [Volume fraction] 39.2 % Normal 36.3-47.1 [facility] Comment on above: Performed By: #### C DP, TROPI, BMP, CRP, SED #### [place] [address] Equine Pharmacology Technician: Campos Escobedo MD Hemoglobin (Bld) [Mass/Vol] 11.9 g/dL Normal 11.9-15.1 [facility] Comment on above: Performed By: #### C DP, TROPI, BMP, CRP, SED #### [place] [address] Equine Pharmacology Technician: Campos Escobedo MD Immature granulocytes (Bld) [#/Vol] 2 % High 0 [facility] Comment on above: Performed By: #### C DP, TROPI, BMP, CRP, SED #### [place] [address] Equine Pharmacology Technician: Campos Escobedo MD Lymphocytes (Bld) [#/Vol] 2.68 10*3/uL Normal 1.10-3.70 [facility] Comment on above: Performed By: #### C DP, TROPI, BMP, CRP, SED #### [place] [address] Equine Pharmacology Technician: Campos Escobedo MD Lymphocytes/100 WBC (Bld) 34 % Normal 24-43 [facility] Comment on above: Performed By: #### C DP, TROPI, BMP, CRP, SED #### [place] [address] Equine Pharmacology Technician: Campos Escobedo MD MCH (RBC) [Entitic mass] 29.8 pg Normal 25.2-33.5 [facility] Comment on above: Performed By: #### C DP, TROPI, BMP, CRP, SED #### [place] [address] Equine Pharmacology Technician: Campos Escobedo MD MCHC (RBC) [Mass/Vol] 30.4 g/dL Normal 28.4-34.8 [facility] Comment on above: Performed By: #### C DP, TROPI, BMP, CRP, SED #### [address] [address] Equine Pharmacology Technician: Campos Escobedo MD MCV (RBC) [Entitic vol] 98.0 fL Normal 82.6-102.9 [facility] Comment on above: Performed By: #### C DP, TROPI, BMP, CRP, SED #### [address] [address] Equine Pharmacology Technician: Campos Escobedo MD Monocytes (Bld) [#/Vol] 0.54 10*3/uL Normal 0.10-1.20 [facility] Comment on above: Performed By: #### C DP, TROPI, BMP, CRP, SED #### [address] [address] Equine Pharmacology Technician: Campos Escobeod MD Monocytes/100 WBC (Bld) 7 % Normal 3-12 [facility] Comment on above: Performed By: #### C DP, TROPI, BMP, CRP, SED #### [address] [address] Equine Pharmacology Technician: Campos Escobedo MD Neutrophil (Seg) 52 % Normal 36-65 [facility] Comment on above: Performed By: #### C DP, TROPI, BMP, CRP, SED #### [address] [address] Equine Pharmacology Technician: Campos Escobedo MD NRBC Automated 0.0 per 100 WBC Normal 0.0 [facility] Comment on above: Performed By: #### C DP, TROPI, BMP, CRP, SED #### [address] [place] [address] Equine Pharmacology Technician: Campos Escobedo MD Platelet mean volume (Bld) [Entitic vol] 9.0 fL Normal 8.1-13.5 [facility] Comment on above: Performed By: #### C DP, TROPI, BMP, CRP, SED #### [address] [address] Equine Pharmacology Technician: Campos Escobedo MD Platelets (Bld) [#/Vol] 664 10*3/uL High 138-453 [facility] Comment on above: Performed By: #### C DP, TROPI, BMP, CRP, SED #### [address] [address] Equine Pharmacology Technician: Campos Escobedo MD RBC (Bld) [#/Vol] 4.00 10*6/uL Normal 3.95-5.11 [facility] Comment on above: Performed By: #### C DP, TROPI, BMP, CRP, SED #### [address] [address] Equine Pharmacology Technician: Campos Escobedo MD WBC (Bld) [#/Vol] 7.9 10*3/uL Normal 3.5-11.3 [facility] Comment on above: Performed By: #### C DP, TROPI, BMP, CRP, SED #### [address] [address] Equine Pharmacology Technician: Campos Escobedo MD Auto Diff Performed NOT REPORTED Normal [facility] Comment on above: Performed By: #### C DP, TROPI, BMP, CRP, SED #### [address] [address] Equine Pharmacology Technician: Campos Escobedo MD Platelets (Bld) [#/Vol] NOT REPORTED Normal [facility] Comment on above: Performed By: #### C DP, TROPI, BMP, CRP, SED #### [facility] [address] [place] [address] Equine Pharmacology Technician: Campos Escobedo MD RBC morphology finding Nom (Bld) NOT REPORTED Normal [facility] Comment on above: Performed By: #### C DP, TROPI, BMP, CRP, SED #### [facility] [address] [place] [address] Equine Pharmacology Technician: Campos Escobedo MD WBC Morphology NOT REPORTED Normal [facility] Comment on above: Performed By: #### C DP, TROPI, BMP, CRP, SED #### [facility] [address] [place] [address] Equine Pharmacology Technician: Campos Escobedo MD Calcium, Ionicon 08-24-2019 Calcium [Mass/Vol] 1.15 mmol/L Normal 1.13-1.33 [facility] Comment on above: Performed By: #### C DP, TROPI, BMP, CRP, SED #### [facility] [address] [place] [address] Equine Pharmacology Technician: MD Dontae Moran 08-24-2019 Dontae rose. B1 1:80 Normal <1:10 [facility] Comment on above: Performed By: #### C DP, TROPI, BMP, CRP, SED #### [facility] [address] [place] [address] Equine Pharmacology Technician: MD Dontae Moran. B2 1:160 Normal <1:10 [facility] Comment on above: Performed By: #### C DP, TROPI, BMP, CRP, SED #### [facility] [address] [place] [address] Equine Pharmacology Technician: MD Dontae Moran B3 1:320 Normal <1:10 [facility] Comment on above: Performed By: #### C DP, TROPI, BMP, CRP, SED #### [address] [place] [place] [address] Equine Pharmacology Technician: MD Dontae Moran B4 1:320 Normal <1:10 [facility] Comment on above: Performed By: #### C DP, TROPI, BMP, CRP, SED #### [address] [address] Equine Pharmacology Technician: MD Dontae Moran B5 1:20 Normal <1:10 [facility] Comment on above: Performed By: #### C DP, TROPI, BMP, CRP, SED #### [address] [address] Equine Pharmacology Technician: MD Dontae Moran. B6 <1:10 Normal <1:10 [facility] Comment on above: Result Comment: (NOT E) INTERPRETIVE INFORMATION: Coxsackie B Virus Single positive antibody titers of greater than or equal to 1:80 may indicate past or current infection. Sero- conversion or an increase in titers between acute and convalescent sera of at least fourfold is considered strong evidence of current or recent infection. Performed by [facility], [address] [place] [id number] [email or web address], Clive Dowell MD, Lab. Director Performed By: #### C DP, TROPI, BMP, CRP, SED #### [facility] [address] [place] [address] Equine Pharmacology Technician: Campos Escobedo MD Magnesiumon 08-24-2019 Magnesium [Mass/Vol] 2.0 mg/dL Normal 1.6-2.6 [facility] Comment on above: Performed By: #### C DP, TROPI, BMP, CRP, SED #### [facility] [address] [place] [address] Equine Pharmacology Technician: Campos Escobedo MD PTon 08-24-2019 INR Coag (PPP) [Relative time] 0.9 {INR} Normal [facility] Comment on above: Result Comment: Therapeutic Range: Moderate Anticoagulant Intensity: INR = 2.0-3.0 High Anticoagulant Intensity: INR = 2.5-3.5 Performed By: #### C DP, TROPI, BMP, CRP, SED #### [email or web address] [address] [place] [address] [phone] Equine Pharmacology Technician: Campos Escobedo MD PT Coag (PPP) [Time] 9.9 s Normal 9.0-12.0 [facility] Comment on above: Performed By: #### C DP, TROPI, BMP, CRP, SED #### [facility] [address] [place] [address] [phone] Equine Pharmacology Technician: Campos Escobedo MD Phosphorus, Inorg.on 019 Phosphorus, Inorg. 3.3 mg/dL Normal 2.6-4.5 [facility] Comment on above: Performed By: #### C DP, TROPI, BMP, CRP, SED #### [facility] [address] [place] [address] [phone] Equine Pharmacology Technician: Campos Escobedo MD XR CHEST PORTABLEon 08-24-20 XR CHEST PORTABLE EXAMINATION: ONE XRAY VIEW [...] Vladimir Acevedo MD 08/24/19 Final result Normal [facility] APTTon 08-23-2019 aPTT Coag (Bld) [Time] 23.2 s Normal 20.5-30.5 [facility] Comment on above: Performed By: #### C DP, IOCAL, PT, PTT, BMP, MG, MAIKEL, TSHX #### [address] [address] Equine Pharmacology Technician: Campos Escobedo MD Basic Metabolic Profon 08-23 (cont.) Normal [facility] Comment on above: Result Comment: Aver age GFR for 60-69 years old: 85 mL/min/1.73sq m Chronic Kidney Disease: <60 mL/min/1.73sq m Kidney failure: <15 mL/min/1.73sq m eGFR calculated using average adult body mass. Additional eGFR calculator available at: http://www.FlagTap.TORIA/multiple_crcl_2011.htm Performed By: #### C DP, TROPI, BMP, CRP, SED #### [address] [address] Equine Pharmacology Technician: Campos Escobedo MD Anion gap [Moles/Vol] 14 mmol/L Normal 9-17 [facility] Comment on above: Performed By: #### C DP, TROPI, BMP, CRP, SED #### [address] [address] Equine Pharmacology Technician: Campos Escobedo MD Calcium [Mass/Vol] 8.7 mg/dL Normal 8.6-10.4 [facility] Comment on above: Performed By: #### C DP, TROPI, BMP, CRP, SED #### [address] [address] Equine Pharmacology Technician: Campos Escobedo MD Chloride [Moles/Vol] 99 mmol/L Normal 98-107 [facility] Comment on above: Performed By: #### C DP, TROPI, BMP, CRP, SED #### [facility] [address] [place] [address] Equine Pharmacology Technician: Campos Escobedo MD CO2 [Moles/Vol] 22 mmol/L Normal 20-31 [facility] Comment on above: Performed By: #### C DP, TROPI, BMP, CRP, SED #### [address] [address] Equine Pharmacology Technician: Campos Escobedo MD Creatinine [Mass/Vol] 0.55 mg/dL Normal 0.50-0.90 [facility] Comment on above: Performed By: #### C DP, TROPI, BMP, CRP, SED #### [address] [address] Equine Pharmacology Technician: Campos Escobedo MD GFR, Amer >60 Normal >60 [facility] Comment on above: Performed By: #### C DP, TROPI, BMP, CRP, SED #### [address] [address] Equine Pharmacology Technician: Campos Escobedo MD GFR,non Amer >60 Normal >60 [facility] Comment on above: Performed By: #### C DP, TROPI, BMP, CRP, SED #### [address] [address] Equine Pharmacology Technician: Campos Escobedo MD Glucose [Mass/Vol] 141 mg/dL High 70-99 [facility] Comment on above: Performed By: #### C DP, TROPI, BMP, CRP, SED #### [address] [address] Equine Pharmacology Technician: Campos Escobedo MD Potassium [Moles/Vol] 3.9 mmol/L Normal 3.7-5.3 [facility] Comment on above: Performed By: #### C DP, TROPI, BMP, CRP, SED #### [address] [address] Equine Pharmacology Technician: Campos Escobedo MD Sodium [Moles/Vol] 135 mmol/L Normal 135-144 [facility] Comment on above: Performed By: #### C DP, TROPI, BMP, CRP, SED #### [address] [address] Equine Pharmacology Technician: Campos Escobedo MD Urea nitrogen [Mass/Vol] 18 mg/dL Normal - [facility] Comment on above: Performed By: #### C DP, TROPI, BMP, CRP, SED #### [address] [address] Equine Pharmacology Technician: Campos Escobedo MD BUN/CRE Ratio NOT REPORTED Normal - [facility] Comment on above: Performed By: #### C DP, TROPI, BMP, CRP, SED #### [address] [address] Equine Pharmacology Technician: Campos Escobedo MD Staging: NOT REPORTED Normal [facility] Comment on above: Performed By: #### C DP, TROPI, BMP, CRP, SED #### [address] [address] Equine Pharmacology Technician: Campos Escobedo MD C-Reactive Proteinon 019 CRP [Mass/Vol] 31.5 mg/L High 0.0-5.0 [facility] Comment on above: Performed By: #### C DP, TROPI, BMP, CRP, SED #### [address] [address] Equine Pharmacology Technician: Campos Escobedo MD CBC with Diffon 08-23-2019 Abs. Basophil 0.07 k/uL Normal 0.00-0.20 [facility] Comment on above: Performed By: #### C DP, IOCAL, PT, PTT, BMP, MG, MAIKEL, TSHX #### [address] [address] Equine Pharmacology Technician: Campos Escobedo MD Abs.Imm.Granulocyte 0.10 k/uL Normal 0.00-0.30 [facility] Comment on above: Performed By: #### C DP, IOCAL, PT, PTT, BMP, MG, MAIKEL, TSHX #### [address] [address] Equine Pharmacology Technician: Campos Escobedo MD Abs.Neutrophil (Seg) 7.10 k/uL Normal 1.50-8.10 [facility] Comment on above: Performed By: #### C DP, IOCAL, PT, PTT, BMP, MG, MAIKEL, TSHX #### [place] [address] Equine Pharmacology Technician: Campos Escobedo MD Basophils/100 WBC (Bld) 1 % Normal 0-2 [facility] Comment on above: Performed By: #### C DP, IOCAL, PT, PTT, BMP, MG, MAIKEL, TSHX #### [place] [address] Equine Pharmacology Technician: Campos Escobedo MD Eosinophils (Bld) [#/Vol] 0.41 10*3/uL Normal 0.00-0.44 [facility] Comment on above: Performed By: #### C DP, IOCAL, PT, PTT, BMP, MG, MAIKEL, TSHX #### [place] [address] Equine Pharmacology Technician: Campos Escobedo MD Eosinophils/100 WBC (Bld) 4 % Normal 1-4 [facility] Comment on above: Performed By: #### C DP, IOCAL, PT, PTT, BMP, MG, MAIKEL, TSHX #### [place] [address] Equine Pharmacology Technician: Campos Escobedo MD Erythrocyte distribution width (RBC) [Ratio] 13.0 % Normal 11.8-14.4 [facility] Comment on above: Performed By: #### C DP, IOCAL, PT, PTT, BMP, MG, MAIKEL, TSHX #### [place] [address] Equine Pharmacology Technician: Campos Escobedo MD Hematocrit (Bld) [Volume fraction] 36.6 % Normal 36.3-47.1 [facility] Comment on above: Performed By: #### C DP, IOCAL, PT, PTT, BMP, MG, MAIKEL, TSHX #### [address] [address] Equine Pharmacology Technician: Campos Escobedo MD Hemoglobin (Bld) [Mass/Vol] 11.3 g/dL Low 11.9-15.1 [facility] Comment on above: Performed By: #### C DP, IOCAL, PT, PTT, BMP, MG, MAIKEL, TSHX #### [place] [address] Equine Pharmacology Technician: Campos Escobedo MD Immature granulocytes (Bld) [#/Vol] 1 % High 0 [facility] Comment on above: Performed By: #### C DP, IOCAL, PT, PTT, BMP, MG, MAIKEL, TSHX #### [place] [address] Equine Pharmacology Technician: Campos Escobedo MD Lymphocytes (Bld) [#/Vol] 2.58 10*3/uL Normal 1.10-3.70 [facility] Comment on above: Performed By: #### C DP, IOCAL, PT, PTT, BMP, MG, MAIKEL, TSHX #### [place] [address] Equine Pharmacology Technician: Campos Escobedo MD Lymphocytes/100 WBC (Bld) 24 % Normal 24-43 [facility] Comment on above: Performed By: #### C DP, IOCAL, PT, PTT, BMP, MG, MAIKEL, TSHX #### [address] [address] Equine Pharmacology Technician: Campos Escobedo MD MCH (RBC) [Entitic mass] 30.1 pg Normal 25.2-33.5 [facility] Comment on above: Performed By: #### C DP, IOCAL, PT, PTT, BMP, MG, MAIKEL, TSHX #### [address] [address] Equine Pharmacology Technician: Campos Escobedo MD MCHC (RBC) [Mass/Vol] 30.9 g/dL Normal 28.4-34.8 [facility] Comment on above: Performed By: #### C DP, IOCAL, PT, PTT, BMP, MG, MAIKEL, TSHX #### [place] [address] Equine Pharmacology Technician: Campos Escobedo MD MCV (RBC) [Entitic vol] 97.3 fL Normal 82.6-102.9 [facility] Comment on above: Performed By: #### C DP, IOCAL, PT, PTT, BMP, MG, MAIKEL, TSHX #### [place] [address] Equine Pharmacology Technician: Campos Escobedo MD Monocytes (Bld) [#/Vol] 0.47 10*3/uL Normal 0.10-1.20 [facility] Comment on above: Performed By: #### C DP, IOCAL, PT, PTT, BMP, MG, MAIKEL, TSHX #### [address] [address] Equine Pharmacology Technician: Campos Escobedo MD Monocytes/100 WBC (Bld) 4 % Normal 3-12 [facility] Comment on above: Performed By: #### C DP, IOCAL, PT, PTT, BMP, MG, MAIKEL, TSHX #### [place] [address] Equine Pharmacology Technician: Campos Escobedo MD Neutrophil (Seg) 66 % High 36-65 [facility] Comment on above: Performed By: #### C DP, IOCAL, PT, PTT, BMP, MG, MAIKEL, TSHX #### [address] [address] Equine Pharmacology Technician: Campos Escobedo MD NRBC Automated 0.0 per 100 WBC Normal 0.0 [facility] Comment on above: Performed By: #### C DP, IOCAL, PT, PTT, BMP, MG, MAIKEL, TSHX #### [address] [address] Equine Pharmacology Technician: Campos Escobedo MD Platelet mean volume (Bld) [Entitic vol] 8.9 fL Normal 8.1-13.5 [facility] Comment on above: Performed By: #### C DP, IOCAL, PT, PTT, BMP, MG, MAIKEL, TSHX #### [address] [address] Equine Pharmacology Technician: Campos Escobedo MD Platelets (Bld) [#/Vol] 638 10*3/uL High 138-453 [facility] Comment on above: Performed By: #### C DP, IOCAL, PT, PTT, BMP, MG, MAIKEL, TSHX #### [address] [address] Equine Pharmacology Technician: Campos Escobedo MD RBC (Bld) [#/Vol] 3.76 10*6/uL Low 3.95-5.11 [facility] Comment on above: Performed By: #### C DP, IOCAL, PT, PTT, BMP, MG, MAIKEL, TSHX #### [address] [address] Equine Pharmacology Technician: Campos Escobedo MD WBC (Bld) [#/Vol] 10.7 10*3/uL Normal 3.5-11.3 [facility] Comment on above: Performed By: #### C DP, IOCAL, PT, PTT, BMP, MG, MAIKEL, TSHX #### [address] [address] Equine Pharmacology Technician: Campos Escobedo MD Auto Diff Performed NOT REPORTED Normal [facility] Comment on above: Performed By: #### C DP, IOCAL, PT, PTT, BMP, MG, MAIKEL, TSHX #### [facility] [address] [place] [address] Equine Pharmacology Technician: Campos Escobedo MD Platelets (Bld) [#/Vol] NOT REPORTED Normal [facility] Comment on above: Performed By: #### C DP, IOCAL, PT, PTT, BMP, MG, MAIKEL, TSHX #### [facility] [address] [place] [phone] Equine Pharmacology Technician: Campos Escobedo MD RBC morphology finding Nom (Bld) NOT REPORTED Normal [facility] Comment on above: Performed By: #### C DP, IOCAL, PT, PTT, BMP, MG, MAIKEL, TSHX #### [address] [address] Equine Pharmacology Technician: Campos Escobedo MD WBC Morphology NOT REPORTED Normal [facility] Comment on above: Performed By: #### C DP, IOCAL, PT, PTT, BMP, MG, MAIKEL, TSHX #### [facility] [address] [place] [phone] Equine Pharmacology Technician: Campos Escobedo MD Calcium, Ionicon 08-23-2019 Calcium [Mass/Vol] 1.22 mmol/L Normal 1.13-1.33 [facility] Comment on above: Performed By: #### C DP, IOCAL, PT, PTT, BMP, MG, MAIKEL, TSHX #### [facility] [address] [place] [address] Equine Pharmacology Technician: Campos Escobedo MD Cult,Funguson 08-23-2019 Cult,Fungus Specimen Description .BODY FLUID Special Requests NOT REPORTED Culture DUPLICATE ORDER Report Status FINAL 08/23/2019 Normal [facility] Comment on above: Performed By: #### C DP, TROPI, BMP, CRP, SED #### [facility] [address] [place] [address] Equine Pharmacology Technician: Campos Escobedo MD Cult,Mycobacteriaon 08-23-20 19 Cult,Mycobacteria Specimen Description .BODY FLUID Special Requests NOT REPORTED Direct Exam NOT REPORTED Culture DUPLICATE ORDER Report Status FINAL 08/23/2019 Normal [facility] Comment on above: Performed By: #### C DP, TROPI, BMP, CRP, SED #### [address] [address] Equine Pharmacology Technician: Campos Escobedo MD Fluid Cell Count and Diffon 08-23-2019 Lymphocytes/100 WBC (Bld) 49 % Normal [facility] Comment on above: Result Comment: The reference range and other method performance specifications have not been established for this body fluid. The test result must be integrated into the clinical context for interpretation. Performed By: #### C DP, TROPI, BMP, CRP, SED #### [address] [address] Equine Pharmacology Technician: Campos Escobedo MD Neutrophils/100 WBC (Bld) 4 % Normal [facility] Comment on above: Result Comment: The reference range and other method performance specifications have not been established for this body fluid. The test result must be integrated into the clinical context for interpretation. Performed By: #### C DP, TROPI, BMP, CRP, SED #### [facility] [address] [address] Equine Pharmacology Technician: Campos Escobedo MD RBC (Bld) [#/Vol] 63335 /mm3 Normal [facility] Comment on above: Result Comment: The reference range and other method performance specifications have not been established for this body fluid. The test result must be integrated into the clinical context for interpretation. Performed By: #### C DP, TROPI, BMP, CRP, SED #### [facility] [address] [place] [address] Equine Pharmacology Technician: Campos Escobedo MD WBC (Bld) [#/Vol] 5151 /mm3 Normal [facility] Comment on above: Result Comment: The reference range and other method performance specifications have not been established for this body fluid. The test result must be integrated into the clinical context for interpretation. Performed By: #### C DP, TROPI, BMP, CRP, SED #### [address] [address] Equine Pharmacology Technician: Campos Escobedo MD Appearance (U) NOT REPORTED Normal [facility] Comment on above: Performed By: #### C DP, TROPI, BMP, CRP, SED #### [address] [address] Equine Pharmacology Technician: Campos Escobedo MD Basophils/100 WBC (Bld) NOT REPORTED Normal 0 [facility] Comment on above: Performed By: #### C DP, TROPI, BMP, CRP, SED #### [address] [address] Equine Pharmacology Technician: Campos Escobedo MD Color (U) NOT REPORTED Normal [facility] Comment on above: Performed By: #### C DP, TROPI, BMP, CRP, SED #### [address] [address] Equine Pharmacology Technician: Campos Escobedo MD Comment NOT REPORTED Normal [facility] Comment on above: Performed By: #### C DP, TROPI, BMP, CRP, SED #### [address] [address] Equine Pharmacology Technician: Campos Escobedo MD Eosinophils (Bld) [#/Vol] NOT REPORTED Normal 0 [facility] Comment on above: Performed By: #### C DP, TROPI, BMP, CRP, SED #### [facility] [address] [place] [address] Equine Pharmacology Technician: Campos Escobedo MD [place]/Macrophage NOT REPORTED Normal [facility] Comment on above: Performed By: #### C DP, TROPI, BMP, CRP, SED #### [address] [phone] Equine Pharmacology Technician: Campos Escobedo MD Type of Specimen .THORACENTESIS FLUID Normal [facility] Comment on above: Performed By: #### C DP, TROPI, BMP, CRP, SED #### [address] [phone] Equine Pharmacology Technician: Campos Escobedo MD Glucose,Fluidon 08-23-2019 Glucose [Mass/Vol] 160 mg/dL Normal [facility] Comment on above: Result Comment: Ther e are no normals for body fluid samples. Performed By: #### C DP, TROPI, BMP, CRP, SED #### [address] [id number] Equine Pharmacology Technician: Campos Escobedo MD Gram Stainon 08-23-2019 Microscopic observation Gram stain Nom (Unsp spec) Specimen Description .THORACENTESIS FLUID Special Requests NOT REPORTED Direct Exam DUPLICATE ORDER Report Status FINAL 08/23/2019 Normal [facility] Comment on above: Performed By: #### C DP, TROPI, BMP, CRP, SED #### [address] [id number] Equine Pharmacology Technician: Campos Escobedo MD Histology [facility] 08-23 Histology [facility] (NOTE) [id number] [facility] ANATOMIC PATHOLOGY [address] [place] [phone] NONGYNECOLOGICAL CYTOPATHOLOGY CONSULTATION Patient Name: TANYA BLAKE [facility] Rec: [id number] Path Number: [id number] Collected: 08/23/2019 Received: 08/26/2019 Reported: 08/28/2019 08:37 [...] with consensus (DEONTE, LHM, SLS, JOSUE). Normal [facility] Comment on above: Performed By: #### C DP, TROPI, BMP, CRP, SED #### [facility] [address] [place] [address] Equine Pharmacology Technician: Campos Escobedo MD Lactate Dehydrog, Flon 08-23 LD - Fluid 316 U/L Normal [facility] Comment on above: Result Comment: Ther e are no normals for body fluid samples. Performed By: #### C DP, TROPI, BMP, CRP, SED #### [facility] [address] [place] [address] Equine Pharmacology Technician: Campos Escobedo MD Type of Specimen .THORACENTESIS FLUID Normal [facility] Comment on above: Performed By: #### C DP, TROPI, BMP, CRP, SED #### [email or web address] [address] [place] [address] Equine Pharmacology Technician: Campos Escobedo MD Lactate Dehydrogenaseon LDH [Catalytic activity/Vol] 195 U/L Normal 135-214 [facility] Comment on above: Performed By: #### C DP, TROPI, BMP, CRP, SED #### [email or web address] [address] [place] [address] Equine Pharmacology Technician: Campos Escobedo MD Liver Profileon 08-23-2019 Albumin [Mass/Vol] 3.3 g/dL Low 3.5-5.2 [facility] Comment on above: Performed By: #### C DP, TROPI, BMP, CRP, SED #### [address] [address] Equine Pharmacology Technician: Campos Escobedo MD Albumin/Globulin [Mass ratio] 1.0 {ratio} Normal 1.0-2.5 [facility] Comment on above: Performed By: #### C DP, TROPI, BMP, CRP, SED #### [address] [address] Equine Pharmacology Technician: Campos Escobedo MD Alkaline Phos 94 U/L Normal 35-104 [facility] Comment on above: Performed By: #### C DP, TROPI, BMP, CRP, SED #### [address] [address] Equine Pharmacology Technician: Campos Escobedo MD ALT [Catalytic activity/Vol] 11 U/L Normal 5-33 [facility] Comment on above: Performed By: #### C DP, TROPI, BMP, CRP, SED #### [address] [address] Equine Pharmacology Technician: Campos Escobedo MD AST [Catalytic activity/Vol] 8 U/L Normal <32 [facility] Comment on above: Performed By: #### C DP, TROPI, BMP, CRP, SED #### [address] [address] Equine Pharmacology Technician: Campos Escobedo MD Bilirubin Ql (U) 0.15 mg/dL Low 0.3-1.2 [facility] Comment on above: Performed By: #### C DP, TROPI, BMP, CRP, SED #### [address] [address] Equine Pharmacology Technician: Campos Esocbedo MD Bilirubin, Indirect CANNOT BE CALCULATED Normal 0.00-1 .00 [facility] Comment on above: Performed By: #### C DP, TROPI, BMP, CRP, SED #### [facility] [address] [place] [address] Equine Pharmacology Technician: Campos Escobedo MD Bilirubin.direct [Mass/Vol] mg/dL Normal <0.31 [facility] Comment on above: Performed By: #### C DP, TROPI, BMP, CRP, SED #### [facility] [address] [place] [address] Equine Pharmacology Technician: Campos Escobedo MD Protein [Mass/Vol] 6.7 g/dL Normal 6.4-8.3 [facility] Comment on above: Performed By: #### C DP, TROPI, BMP, CRP, SED #### [facility] [address] [place] [address] Equine Pharmacology Technician: Campos Escobedo MD Globulin (S) [Mass/Vol] NOT REPORTED Normal 1.5-3.8 [facility] Comment on above: Performed By: #### C DP, TROPI, BMP, CRP, SED #### [facility] [address] [place] [address] Equine Pharmacology Technician: Campos Escobedo MD Magnesiumon 08-23-2019 Magnesium [Mass/Vol] 1.9 mg/dL Normal 1.6-2.6 [facility] Comment on above: Performed By: #### C DP, TROPI, BMP, CRP, SED #### [facility] [address] [place] [address] Equine Pharmacology Technician: Campos Escobedo MD Non-Assignment Editor Cytologyon 9 Case No: NOT REPORTED Normal [facility] Comment on above: Performed By: #### C DP, TROPI, BMP, CRP, SED #### [facility] [address] [place] [address] Equine Pharmacology Technician: Campos Escobedo MD Specimen Description .THORACENTESIS FLUID Normal [facility] Comment on above: Performed By: #### C DP, TROPI, BMP, CRP, SED #### [address] [address] Equine Pharmacology Technician: Campos Escobedo MD PH, Quant, Fluidon 9 pH,Quant-Fluid 7.0 Normal [facility] Comment on above: Result Comment: Ther e are no normals for body fluid samples. Performed By: #### C DP, TROPI, BMP, CRP, SED #### [facility] [address] [place] [address] Equine Pharmacology Technician: Campos Escobedo MD PTon 08-23-2019 INR Coag (PPP) [Relative time] 0.9 {INR} Normal [facility] Comment on above: Result Comment: Therapeutic Range: Moderate Anticoagulant Intensity: INR = 2.0-3.0 High Anticoagulant Intensity: INR = 2.5-3.5 Performed By: #### C DP, IOCAL, PT, PTT, BMP, MG, MAIKEL, TSHX #### [facility] [address] [place] [address] Equine Pharmacology Technician: Campos Escobedo MD PT Coag (PPP) [Time] 10.1 s Normal 9.0-12.0 [facility] Comment on above: Performed By: #### C DP, IOCAL, PT, PTT, BMP, MG, MAIKEL, TSHX #### [address] [address] Equine Pharmacology Technician: Campos Escobedo MD Phosphorus, Inorg.on 019 Phosphorus, Inorg. 3.6 mg/dL Normal 2.6-4.5 [facility] Comment on above: Performed By: #### C DP, TROPI, BMP, CRP, SED #### [facility] [address] [place] [address] Equine Pharmacology Technician: Campos Escobedo MD Protein,Tot,Fluidon 08-23-20 19 Tot Prot. Conc. 4.0 g/dL Normal [facility] Comment on above: Result Comment: Ther e are no normals for body fluid samples. Performed By: #### C DP, TROPI, BMP, CRP, SED #### [email or web address] [place] [address] Equine Pharmacology Technician: Campos Escobedo MD US THORACENTESISon 9 US THORACENTESIS PROCEDURE: ULTRASOUNDGUIDED left THORACENTESIS 08/23/2019 HISTORY: ORDERING SYSTEM PROVIDED HISTORY: Left pleural effusion for thoracentesis ultrasound guided TECHNOLOGIST PROVIDED HISTORY: Left pleural effusion for thoracentesis ultrasound guided TECHNIQUE: Informed consent was obtained after a detailed explanation of the procedure including risks, benefits, and alternatives. Yulee protocol was performed. The left chest was prepped and draped in sterile fashion and local anesthesia was achieved with lidocaine. An 5 Lao needle sheath was advanced under ultrasound guidance into pleural effusion and thoracentesis was performed. The patient tolerated the procedure well. Estimated blood loss: Minimal FINDINGS: A total of 200 mL was removed. Ayad colored fluid IMPRESSION: Successful ultrasound guided thoracentesis. Interpreted by: Gordo Brar MD Signed by: Gordo Brar MD 08/23/19 Final result Normal [facility] XR CHEST (2 VW)on 08-23-2019 XR CHEST [...] Renard Salcedo MD 08/23/19 Final result Normal [facility] APTTon 08-22-2019 aPTT Coag (Bld) [Time] 24.7 s Normal 20.5-30.5 [facility] Comment on above: Performed By: #### C DP, IOCAL, PT, PTT, BMP, MG, MAIKEL, TSHX #### [address] [address] Equine Pharmacology Technician: Campos Escobedo MD Basic Metab w/rfx MGon 08-22 (cont.) Normal [facility] Comment on above: Result Comment: Aver age GFR for 60-69 years old: 85 mL/min/1.73sq m Chronic Kidney Disease: <60 mL/min/1.73sq m Kidney failure: <15 mL/min/1.73sq m eGFR calculated using average adult body mass. Additional eGFR calculator available at: http://www.FlagTap.TORIA/multiple_crcl_2012.htm Performed By: #### C DP, IOCAL, PT, PTT, BMP, MG, MAIKEL, TSHX #### [address] [address] Equine Pharmacology Technician: Campos Escobedo MD Anion gap [Moles/Vol] 12 mmol/L Normal 9-17 [facility] Comment on above: Performed By: #### C DP, IOCAL, PT, PTT, BMP, MG, MAIKEL, TSHX #### [address] [address] Equine Pharmacology Technician: Campos Escobedo MD Calcium [Mass/Vol] 8.9 mg/dL Normal 8.6-10.4 [facility] Comment on above: Performed By: #### C DP, IOCAL, PT, PTT, BMP, MG, MAIKEL, TSHX #### [address] [address] Equine Pharmacology Technician: Campos Escobedo MD Chloride [Moles/Vol] 101 mmol/L Normal 98-107 [facility] Comment on above: Performed By: #### C DP, IOCAL, PT, PTT, BMP, MG, MAIKEL, TSHX #### [address] [address] Equine Pharmacology Technician: Campos Escobedo MD CO2 [Moles/Vol] 27 mmol/L Normal 20-31 [facility] Comment on above: Performed By: #### C DP, IOCAL, PT, PTT, BMP, MG, MAIKEL, TSHX #### [address] [address] Equine Pharmacology Technician: Campos Escobedo MD Creatinine [Mass/Vol] 0.60 mg/dL Normal 0.50-0.90 [facility] Comment on above: Performed By: #### C DP, IOCAL, PT, PTT, BMP, MG, MAIKEL, TSHX #### [address] [address] Equine Pharmacology Technician: Campos Escobedo MD GFR, Amer >60 Normal >60 [facility] Comment on above: Performed By: #### C DP, IOCAL, PT, PTT, BMP, MG, MAIKEL, TSHX #### [address] [address] Equine Pharmacology Technician: Campos Escobedo MD GFR,non Amer >60 Normal >60 [facility] Comment on above: Performed By: #### C DP, IOCAL, PT, PTT, BMP, MG, MAIKEL, TSHX #### [address] [address] Equine Pharmacology Technician: Campos Escobedo MD Glucose [Mass/Vol] 204 mg/dL High 70-99 [facility] Comment on above: Performed By: #### C DP, IOCAL, PT, PTT, BMP, MG, MAIKEL, TSHX #### [address] [address] Equine Pharmacology Technician: Campos Escobedo MD Potassium [Moles/Vol] 4.8 mmol/L Normal 3.7-5.3 [facility] Comment on above: Performed By: #### C DP, IOCAL, PT, PTT, BMP, MG, MAIKEL, TSHX #### [address] [address] Equine Pharmacology Technician: Campos Escobedo MD Sodium [Moles/Vol] 140 mmol/L Normal 135-144 [facility] Comment on above: Performed By: #### C DP, IOCAL, PT, PTT, BMP, MG, MAIKEL, TSHX #### [address] [address] Equine Pharmacology Technician: Campos Escobedo MD Urea nitrogen [Mass/Vol] 17 mg/dL Normal 8- [facility] Comment on above: Performed By: #### C DP, IOCAL, PT, PTT, BMP, MG, MAIKEL, TSHX #### [address] [address] Equine Pharmacology Technician: Campos Escobedo MD BUN/CRE Ratio NOT REPORTED Normal - [facility] Comment on above: Performed By: #### C DP, IOCAL, PT, PTT, BMP, MG, MAIKEL, TSHX #### [address] [address] Equine Pharmacology Technician: Campos Escobedo MD Staging: NOT REPORTED Normal [facility] Comment on above: Performed By: #### C DP, IOCAL, PT, PTT, BMP, MG, MAIKEL, TSHX #### [address] [address] Equine Pharmacology Technician: Campos Escobedo MD CBC with Diffon 08-22-2019 Abs. Basophil 0.05 k/uL Normal 0.00-0.20 [facility] Comment on above: Performed By: #### C DP, IOCAL, PT, PTT, BMP, MG, MAIKEL, TSHX #### [address] [address] Equine Pharmacology Technician: Campos Escobedo MD Abs.Imm.Granulocyte 0.12 k/uL Normal 0.00-0.30 [facility] Comment on above: Performed By: #### C DP, IOCAL, PT, PTT, BMP, MG, MAIKEL, TSHX #### [address] [address] Equine Pharmacology Technician: Campos Escobedo MD Abs.Neutrophil (Seg) 11.05 k/uL High 1.50-8.10 [facility] Comment on above: Performed By: #### C DP, IOCAL, PT, PTT, BMP, MG, MAIKEL, TSHX #### [place] [address] Equine Pharmacology Technician: Campos Escobedo MD Basophils/100 WBC (Bld) 0 % Normal 0-2 [facility] Comment on above: Performed By: #### C DP, IOCAL, PT, PTT, BMP, MG, MAIKEL, TSHX #### [place] [address] Equine Pharmacology Technician: Campos Escobedo MD Eosinophils (Bld) [#/Vol] 0.20 10*3/uL Normal 0.00-0.44 [facility] Comment on above: Performed By: #### C DP, IOCAL, PT, PTT, BMP, MG, MAIKEL, TSHX #### [place] [address] Equine Pharmacology Technician: Campos Escobedo MD Eosinophils/100 WBC (Bld) 1 % Normal 1-4 [facility] Comment on above: Performed By: #### C DP, IOCAL, PT, PTT, BMP, MG, MAIKEL, TSHX #### [place] [address] Equine Pharmacology Technician: Campos Escobedo MD Erythrocyte distribution width (RBC) [Ratio] 12.7 % Normal 11.8-14.4 [facility] Comment on above: Performed By: #### C DP, IOCAL, PT, PTT, BMP, MG, MAIKEL, TSHX #### [place] [address] Equine Pharmacology Technician: Campos Escobedo MD Hematocrit (Bld) [Volume fraction] 34.7 % Low 36.3-47.1 [facility] Comment on above: Performed By: #### C DP, IOCAL, PT, PTT, BMP, MG, MAIKEL, TSHX #### [address] [address] Equine Pharmacology Technician: Campos Escobedo MD Hemoglobin (Bld) [Mass/Vol] 10.8 g/dL Low 11.9-15.1 [facility] Comment on above: Performed By: #### C DP, IOCAL, PT, PTT, BMP, MG, MAIKEL, TSHX #### [place] [address] Equine Pharmacology Technician: Campos Escobedo MD Immature granulocytes (Bld) [#/Vol] 1 % High 0 [facility] Comment on above: Performed By: #### C DP, IOCAL, PT, PTT, BMP, MG, MAIKEL, TSHX #### [place] [address] Equine Pharmacology Technician: Campos Escobedo MD Lymphocytes (Bld) [#/Vol] 1.79 10*3/uL Normal 1.10-3.70 [facility] Comment on above: Performed By: #### C DP, IOCAL, PT, PTT, BMP, MG, MAIKEL, TSHX #### [place] [address] Equine Pharmacology Technician: Campos Escobedo MD Lymphocytes/100 WBC (Bld) 13 % Low 24-43 [facility] Comment on above: Performed By: #### C DP, IOCAL, PT, PTT, BMP, MG, MAIKEL, TSHX #### [address] [address] Equine Pharmacology Technician: Campos Escobedo MD MCH (RBC) [Entitic mass] 29.9 pg Normal 25.2-33.5 [facility] Comment on above: Performed By: #### C DP, IOCAL, PT, PTT, BMP, MG, MAIKEL, TSHX #### [address] [address] Equine Pharmacology Technician: Campos Escobedo MD MCHC (RBC) [Mass/Vol] 31.1 g/dL Normal 28.4-34.8 [facility] Comment on above: Performed By: #### C DP, IOCAL, PT, PTT, BMP, MG, MAIKEL, TSHX #### [address] [address] Equine Pharmacology Technician: Campos Escobedo MD MCV (RBC) [Entitic vol] 96.1 fL Normal 82.6-102.9 [facility] Comment on above: Performed By: #### C DP, IOCAL, PT, PTT, BMP, MG, MAIKEL, TSHX #### [address] [address] Equine Pharmacology Technician: Campos Escobedo MD Monocytes (Bld) [#/Vol] 0.71 10*3/uL Normal 0.10-1.20 [facility] Comment on above: Performed By: #### C DP, IOCAL, PT, PTT, BMP, MG, MAIKEL, TSHX #### [address] [address] Equine Pharmacology Technician: Campos Escobedo MD Monocytes/100 WBC (Bld) 5 % Normal 3-12 [facility] Comment on above: Performed By: #### C DP, IOCAL, PT, PTT, BMP, MG, MAIKEL, TSHX #### [address] [address] Equine Pharmacology Technician: Campos Escobedo MD Neutrophil (Seg) 79 % High 36-65 [facility] Comment on above: Performed By: #### C DP, IOCAL, PT, PTT, BMP, MG, MAIKEL, TSHX #### [address] [address] Equine Pharmacology Technician: Campos Escobedo MD NRBC Automated 0.0 per 100 WBC Normal 0.0 [facility] Comment on above: Performed By: #### C DP, IOCAL, PT, PTT, BMP, MG, MAIKEL, TSHX #### [address] [address] Equine Pharmacology Technician: Campos Escobedo MD Platelet mean volume (Bld) [Entitic vol] 9.1 fL Normal 8.1-13.5 [facility] Comment on above: Performed By: #### C DP, IOCAL, PT, PTT, BMP, MG, MAIKEL, TSHX #### [place] [address] Equine Pharmacology Technician: Campos Escobedo MD Platelets (Bld) [#/Vol] 625 10*3/uL High 138-453 [facility] Comment on above: Performed By: #### C DP, IOCAL, PT, PTT, BMP, MG, MAIKEL, TSHX #### [address] [address] Equine Pharmacology Technician: Campos Escobedo MD RBC (Bld) [#/Vol] 3.61 10*6/uL Low 3.95-5.11 [facility] Comment on above: Performed By: #### C DP, IOCAL, PT, PTT, BMP, MG, MAIKEL, TSHX #### [address] [address] Equine Pharmacology Technician: Campos Escobedo MD WBC (Bld) [#/Vol] 13.9 10*3/uL High 3.5-11.3 [facility] Comment on above: Performed By: #### C DP, IOCAL, PT, PTT, BMP, MG, MAIKEL, TSHX #### [address] [address] Equine Pharmacology Technician: Campos Escobedo MD Auto Diff Performed NOT REPORTED Normal [facility] Comment on above: Performed By: #### C DP, IOCAL, PT, PTT, BMP, MG, MAIKEL, TSHX #### [address] [address] Equine Pharmacology Technician: Campos Escobedo MD Platelets (Bld) [#/Vol] NOT REPORTED Normal [facility] Comment on above: Performed By: #### C DP, IOCAL, PT, PTT, BMP, MG, MAIKEL, TSHX #### [address] [address] Equine Pharmacology Technician: Campos Escobedo MD RBC morphology finding Nom (Bld) NOT REPORTED Normal [facility] Comment on above: Performed By: #### C DP, IOCAL, PT, PTT, BMP, MG, MAIKEL, TSHX #### [address] [address] Equine Pharmacology Technician: Campos Escobedo MD WBC Morphology NOT REPORTED Normal [facility] Comment on above: Performed By: #### C DP, IOCAL, PT, PTT, BMP, MG, MAIKEL, TSHX #### [facility] [address] [place] [address] Equine Pharmacology Technician: Campos Escobedo MD Calcium, Ionicon 08-22-2019 Calcium [Mass/Vol] 1.18 mmol/L Normal 1.13-1.33 [facility] Comment on above: Performed By: #### C DP, IOCAL, PT, PTT, BMP, MG, MAIKEL, TSHX #### [facility] [address] [place] [address] Equine Pharmacology Technician: Campos Escobedo MD K (Potassium)on 08-22-2019 Potassium [Moles/Vol] 4.3 mmol/L Normal 3.7-5.3 [facility] Comment on above: Performed By: #### C DP, IOCAL, PT, PTT, BMP, MG, MAIKEL, TSHX #### [address] [id number] Equine Pharmacology Technician: Campos Escobedo MD Magnesiumon 08-22-2019 Magnesium [Mass/Vol] 2.0 mg/dL Normal 1.6-2.6 [facility] Comment on above: Performed By: #### C DP, IOCAL, PT, PTT, BMP, MG, MAIKEL, TSHX #### [address] [id number] Equine Pharmacology Technician: Campos Escobedo MD Magnesium [Mass/Vol] 2.2 mg/dL Normal 1.6-2.6 [facility] Comment on above: Performed By: #### C DP, IOCAL, PT, PTT, BMP, MG, MAIKEL, TSHX #### [address] [address] Equine Pharmacology Technician: Campos Escobedo MD PTon 08-22-2019 INR Coag (PPP) [Relative time] 0.9 {INR} Normal [facility] Comment on above: Result Comment: Therapeutic Range: Moderate Anticoagulant Intensity: INR = 2.0-3.0 High Anticoagulant Intensity: INR = 2.5-3.5 Performed By: #### C DP, IOCAL, PT, PTT, BMP, MG, MAIKEL, TSHX #### [address] [phone] Equine Pharmacology Technician: Campos Escobedo MD PT Coag (PPP) [Time] 9.6 s Normal 9.0-12.0 [facility] Comment on above: Performed By: #### C DP, IOCAL, PT, PTT, BMP, MG, MAIKEL, TSHX #### [place] [address] Equine Pharmacology Technician: Campos Escobedo MD Phosphorus, Inorg.on 019 Phosphorus, Inorg. 3.7 mg/dL Normal 2.6-4.5 [facility] Comment on above: Performed By: #### C DP, IOCAL, PT, PTT, BMP, MG, MAIKEL, TSHX #### [address] [id number] Equine Pharmacology Technician: Campos Escobedo MD APTTon 08-21-2019 aPTT Coag (Bld) [Time] 26.4 s Normal 20.5-30.5 [facility] Comment on above: Performed By: #### C DP, IOCAL, PT, PTT, BMP, MG, MAIKEL, TSHX #### [address] [phone] Equine Pharmacology Technician: Campos Escobedo MD Basic Metabolic Profon 08-21 (cont.) Normal [facility] Comment on above: Result Comment: Aver age GFR for 60-69 years old: 85 mL/min/1.73sq m Chronic Kidney Disease: <60 mL/min/1.73sq m Kidney failure: <15 mL/min/1.73sq m eGFR calculated using average adult body mass. Additional eGFR calculator available at: http://www.FlagTap.TORIA/multiple_crcl_2012.htm Performed By: #### C DP, IOCAL, PT, PTT, BMP, MG, MAIKEL, TSHX #### [address] [phone] Equine Pharmacology Technician: Campos Escobedo MD Anion gap [Moles/Vol] 14 mmol/L Normal 9-17 [facility] Comment on above: Performed By: #### C DP, IOCAL, PT, PTT, BMP, MG, MAIKEL, TSHX #### [facility] [address] [place] [address] [phone] Equine Pharmacology Technician: Campos Escobedo MD Calcium [Mass/Vol] 8.5 mg/dL Low 8.6-10.4 [facility] Comment on above: Performed By: #### C DP, IOCAL, PT, PTT, BMP, MG, MAIKEL, TSHX #### [facility] [address] [place] [address] [phone] Equine Pharmacology Technician: Campos Escobedo MD Chloride [Moles/Vol] 100 mmol/L Normal 98-107 [facility] Comment on above: Performed By: #### C DP, IOCAL, PT, PTT, BMP, MG, MAIKEL, TSHX #### [address] [phone] Equine Pharmacology Technician: Campos Escobedo MD CO2 [Moles/Vol] 24 mmol/L Normal 20-31 [facility] Comment on above: Performed By: #### C DP, IOCAL, PT, PTT, BMP, MG, MAIKEL, TSHX #### [address] [phone] Equine Pharmacology Technician: Campos Escobedo MD Creatinine [Mass/Vol] 0.44 mg/dL Low 0.50-0.90 [facility] Comment on above: Performed By: #### C DP, IOCAL, PT, PTT, BMP, MG, MAIKEL, TSHX #### [facility] [address] [place] [address] [phone] Equine Pharmacology Technician: Campos Escobedo MD GFR, Amer >60 Normal >60 [facility] Comment on above: Performed By: #### C DP, IOCAL, PT, PTT, BMP, MG, MAIKEL, TSHX #### [address] [phone] Equine Pharmacology Technician: Campos Escobedo MD GFR,non Amer >60 Normal >60 [facility] Comment on above: Performed By: #### C DP, IOCAL, PT, PTT, BMP, MG, MAIKEL, TSHX #### [facility] [address] [place] [phone] Equine Pharmacology Technician: Campos Escobedo MD Glucose [Mass/Vol] 205 mg/dL High 70-99 [facility] Comment on above: Performed By: #### C DP, IOCAL, PT, PTT, BMP, MG, MAIKEL, TSHX #### [address] [address] Equine Pharmacology Technician: Campos Escobedo MD Potassium [Moles/Vol] 4.0 mmol/L Normal 3.7-5.3 [facility] Comment on above: Performed By: #### C DP, IOCAL, PT, PTT, BMP, MG, MAIKEL, TSHX #### [address] [address] Equine Pharmacology Technician: Campos Escobedo MD Sodium [Moles/Vol] 138 mmol/L Normal 135-144 [facility] Comment on above: Performed By: #### C DP, IOCAL, PT, PTT, BMP, MG, MAIKEL, TSHX #### [address] [address] Equine Pharmacology Technician: Campos Escobedo MD Urea nitrogen [Mass/Vol] 12 mg/dL Normal 8-23 [facility] Comment on above: Performed By: #### C DP, IOCAL, PT, PTT, BMP, MG, MAIKEL, TSHX #### [address] [address] Equine Pharmacology Technician: Campos Escobedo MD BUN/CRE Ratio NOT REPORTED Normal 9- [facility] Comment on above: Performed By: #### C DP, IOCAL, PT, PTT, BMP, MG, MAIKEL, TSHX #### [address] [phone] Equine Pharmacology Technician: Campos Escobedo MD Staging: NOT REPORTED Normal [facility] Comment on above: Performed By: #### C DP, IOCAL, PT, PTT, BMP, MG, MAIKEL, TSHX #### [address] [phone] Equine Pharmacology Technician: Campos Escobedo MD CBC with Diffon 08-21-2019 Abs. Basophil 0.09 k/uL Normal 0.00-0.20 [facility] Comment on above: Performed By: #### C DP, IOCAL, PT, PTT, BMP, MG, MAIKEL, TSHX #### [address] [address] Equine Pharmacology Technician: Campos Escobedo MD Abs.Imm.Granulocyte 0.16 k/uL Normal 0.00-0.30 [facility] Comment on above: Performed By: #### C DP, IOCAL, PT, PTT, BMP, MG, MAIKEL, TSHX #### [address] [address] Equine Pharmacology Technician: Campos Escobedo MD Abs.Neutrophil (Seg) 5.82 k/uL Normal 1.50-8.10 [facility] Comment on above: Performed By: #### C DP, IOCAL, PT, PTT, BMP, MG, MAIKEL, TSHX #### [place] [address] Equine Pharmacology Technician: Campos Escobedo MD Basophils/100 WBC (Bld) 1 % Normal 0-2 [facility] Comment on above: Performed By: #### C DP, IOCAL, PT, PTT, BMP, MG, MAIKEL, TSHX #### [address] [address] Equine Pharmacology Technician: Campos Escobedo MD Eosinophils (Bld) [#/Vol] 0.56 10*3/uL High 0.00-0.44 [facility] Comment on above: Performed By: #### C DP, IOCAL, PT, PTT, BMP, MG, MAIKEL, TSHX #### [address] [address] Equine Pharmacology Technician: Campos Escobedo MD Eosinophils/100 WBC (Bld) 6 % High 1-4 [facility] Comment on above: Performed By: #### C DP, IOCAL, PT, PTT, BMP, MG, MIAKEL, TSHX #### [address] [place] [address] Equine Pharmacology Technician: Campos Escobedo MD Erythrocyte distribution width (RBC) [Ratio] 12.5 % Normal 11.8-14.4 [facility] Comment on above: Performed By: #### C DP, IOCAL, PT, PTT, BMP, MG, MAIKEL, TSHX #### [place] [address] Equine Pharmacology Technician: Campos Escobedo MD Hematocrit (Bld) [Volume fraction] 35.2 % Low 36.3-47.1 [facility] Comment on above: Performed By: #### C DP, IOCAL, PT, PTT, BMP, MG, MAIKEL, TSHX #### [place] [address] Equine Pharmacology Technician: Campos Escobedo MD Hemoglobin (Bld) [Mass/Vol] 11.1 g/dL Low 11.9-15.1 [facility] Comment on above: Performed By: #### C DP, IOCAL, PT, PTT, BMP, MG, MAIKEL, TSHX #### [place] [address] Equine Pharmacology Technician: Campos Escobedo MD Immature granulocytes (Bld) [#/Vol] 2 % High 0 [facility] Comment on above: Performed By: #### C DP, IOCAL, PT, PTT, BMP, MG, MAIKEL, TSHX #### [place] [address] Equine Pharmacology Technician: Campos Escobedo MD Lymphocytes (Bld) [#/Vol] 1.68 10*3/uL Normal 1.10-3.70 [facility] Comment on above: Performed By: #### C DP, IOCAL, PT, PTT, BMP, MG, MAIKEL, TSHX #### [place] [address] Equine Pharmacology Technician: Campos Escobedo MD Lymphocytes/100 WBC (Bld) 19 % Low 24-43 [facility] Comment on above: Performed By: #### C DP, IOCAL, PT, PTT, BMP, MG, MAIKEL, TSHX #### [address] [address] Equine Pharmacology Technician: Campos Escobedo MD MCH (RBC) [Entitic mass] 29.8 pg Normal 25.2-33.5 [facility] Comment on above: Performed By: #### C DP, IOCAL, PT, PTT, BMP, MG, MAIKEL, TSHX #### [address] [address] Equine Pharmacology Technician: Campos Escobedo MD MCHC (RBC) [Mass/Vol] 31.5 g/dL Normal 28.4-34.8 [facility] Comment on above: Performed By: #### C DP, IOCAL, PT, PTT, BMP, MG, MAIKEL, TSHX #### [address] [address] Equine Pharmacology Technician: Campos Escobedo MD MCV (RBC) [Entitic vol] 94.4 fL Normal 82.6-102.9 [facility] Comment on above: Performed By: #### C DP, IOCAL, PT, PTT, BMP, MG, MAIKEL, TSHX #### [place] [address] Equine Pharmacology Technician: Campos Escobedo MD Monocytes (Bld) [#/Vol] 0.70 10*3/uL Normal 0.10-1.20 [facility] Comment on above: Performed By: #### C DP, IOCAL, PT, PTT, BMP, MG, MAIKEL, TSHX #### [address] [address] Equine Pharmacology Technician: Campos Escobedo MD Monocytes/100 WBC (Bld) 8 % Normal 3-12 [facility] Comment on above: Performed By: #### C DP, IOCAL, PT, PTT, BMP, MG, MAIKEL, TSHX #### [address] [address] Equine Pharmacology Technician: Campos Escobedo MD Neutrophil (Seg) 65 % Normal 36-65 [facility] Comment on above: Performed By: #### C DP, IOCAL, PT, PTT, BMP, MG, MAIKEL, TSHX #### [address] [address] Equine Pharmacology Technician: Campos Escobedo MD NRBC Automated 0.0 per 100 WBC Normal 0.0 [facility] Comment on above: Performed By: #### C DP, IOCAL, PT, PTT, BMP, MG, MAIKEL, TSHX #### [address] [address] Equine Pharmacology Technician: Campos Escobedo MD Platelet mean volume (Bld) [Entitic vol] 8.7 fL Normal 8.1-13.5 [facility] Comment on above: Performed By: #### C DP, IOCAL, PT, PTT, BMP, MG, MAIKEL, TSHX #### [address] [address] Equine Pharmacology Technician: Campos Escobedo MD Platelets (Bld) [#/Vol] 576 10*3/uL High 138-453 [facility] Comment on above: Performed By: #### C DP, IOCAL, PT, PTT, BMP, MG, MAIKEL, TSHX #### [address] [address] Equine Pharmacology Technician: Campos Escobedo MD RBC (Bld) [#/Vol] 3.73 10*6/uL Low 3.95-5.11 [facility] Comment on above: Performed By: #### C DP, IOCAL, PT, PTT, BMP, MG, MAIKEL, TSHX #### [address] [phone] Equine Pharmacology Technician: Campos Escobedo MD WBC (Bld) [#/Vol] 9.0 10*3/uL Normal 3.5-11.3 [facility] Comment on above: Performed By: #### C DP, IOCAL, PT, PTT, BMP, MG, MAIKEL, TSHX #### [address] [address] Equine Pharmacology Technician: Campos Escobedo MD Auto Diff Performed NOT REPORTED Normal [facility] Comment on above: Performed By: #### C DP, IOCAL, PT, PTT, BMP, MG, MAIKEL, TSHX #### [address] [address] Equine Pharmacology Technician: Campos Escobedo MD Platelets (Bld) [#/Vol] NOT REPORTED Normal [facility] Comment on above: Performed By: #### C DP, IOCAL, PT, PTT, BMP, MG, MAIKEL, TSHX #### [address] [address] Equine Pharmacology Technician: Campos Escobedo MD RBC morphology finding Nom (Bld) NOT REPORTED Normal [facility] Comment on above: Performed By: #### C DP, IOCAL, PT, PTT, BMP, MG, MAIKEL, TSHX #### [address] [address] Equine Pharmacology Technician: Campos Escobedo MD WBC Morphology NOT REPORTED Normal [facility] Comment on above: Performed By: #### C DP, IOCAL, PT, PTT, BMP, MG, MAIKEL, TSHX #### [address] [address] Equine Pharmacology Technician: Campos Escobedo MD Calcium, Ionicon 08-21-2019 Calcium [Mass/Vol] 1.09 mmol/L Low 1.13-1.33 [facility] Comment on above: Performed By: #### C DP, IOCAL, PT, PTT, BMP, MG, MAIKEL, TSHX #### [facility] [address] [place] [address] [phone] Equine Pharmacology Technician: Campos Escobedo MD Cult,Aerobe/Anaerobeon 08-21 Cult,Aerobe/Anaerobe Specimen Descriptio n .HEART Special Requests .TISSUE Direct Exam NOT REPORTED Culture DUE TO THE SPECIMEN TYPE, THE ORDER WAS CANCELED AND REORDERED. PLEASE REFER TO: TISSUE CULTURE Report Status FINAL 08/21/2019 [facility] Comment on above: Performed By: #### C DP, IOCAL, PT, PTT, BMP, MG, MAIKEL, TSHX #### [address] [phone] Equine Pharmacology Technician: Campos Escobedo MD Histology [facility] 08-21 Histology [facility] (NOTE) [id number] [facility] CONSULTING PATHOLOGISTS [facility] ANATOMIC PATHOLOGY [address] [place] [phone] NONGYNECOLOGICAL CYTOPATHOLOGY CONSULTATION Patient Name: TANYA BLAKE [facility] Rec: [id number] Path Number: [id number] Collected: 08/21/2019 Received: 08/21/2019 Reported: 08/22/2019 12:28 -- Diagnosis -- PERICARDIAL FLUID: NEGATIVE FOR MALIGNANCY. Johnson Hurtado Electronically Signed Out rdd/08/22/2019 Clinical Information Pericardial effusion. Source of Specimen 1: PERICARDIAL FLUID Gross Description PERICARDIAL FLUID 15.0 ml. red cloudy fluid. MICROSCOPIC DESCRIPTION Microscopic examination performed. Normal [facility] Comment on above: Performed By: #### C DP, IOCAL, PT, PTT, BMP, MG, MAIKEL, TSHX #### [address] [address] Equine Pharmacology Technician: Campos Escobedo MD Magnesiumon 08-21-2019 Magnesium [Mass/Vol] 1.9 mg/dL Normal 1.6-2.6 [facility] Comment on above: Performed By: #### C DP, IOCAL, PT, PTT, BMP, MG, MAIKEL, TSHX #### [facility] [address] [place] [address] Equine Pharmacology Technician: Campos Escobedo MD Non-Assignment Editor Cytologyon 9 Case No: [id number] Normal [facility] Comment on above: Performed By: #### C DP, IOCAL, PT, PTT, BMP, MG, MAIKEL, TSHX #### [facility] [address] [place] [address] Equine Pharmacology Technician: Campos Escobedo MD Specimen Description PERICARDIAL FLUID Normal [facility] Comment on above: Performed By: #### C DP, IOCAL, PT, PTT, BMP, MG, MAIKEL, TSHX #### [facility] [place] [address] Equine Pharmacology Technician: Campos Escobedo MD OPERATIVE REPORTon 9 OPERATIVE REPORT [address] [phone] OPERATIVE REPORT PATIENT NAME: TANYA BLAKE : 1955 MED REC NO: [id number] ROOM: 1009 ACCOUNT NO: [id number] ADMIT DATE: 08/12/2019 PROVIDER: Erick Cain MD DATE OF PROCEDURE: 08/21/2019 PRIMARY ATTENDING SURGEON: Erick Cain MD OTHER ASSISTANTS: Included Maura Mackey [...] after she was taken to the lab pack chemist, and it was deemed to be not [...] to complete the operation. ERICK CAIN MD [id number]_[id number] Doc#: [id number] CC: Normal [facility] PTon 08-21-2019 INR Coag (PPP) [Relative time] 1.0 {INR} Normal [facility] Comment on above: Result Comment: Therapeutic Range: Moderate Anticoagulant Intensity: INR = 2.0-3.0 High Anticoagulant Intensity: INR = 2.5-3.5 Performed By: #### C DP, IOCAL, PT, PTT, BMP, MG, MAIKEL, TSHX #### [email or web address] [address] [place] [phone] Equine Pharmacology Technician: Campos Escobedo MD PT Coag (PPP) [Time] 10.4 s Normal 9.0-12.0 [facility] Comment on above: Performed By: #### C DP, IOCAL, PT, PTT, BMP, MG, MAIKEL, TSHX #### [email or web address] [address] [place] [address] [phone] Equine Pharmacology Technician: Campos Escobedo MD Phosphorus, Inorg.on Phosphorus, Inorg. 3.3 mg/dL Normal 2.6-4.5 [facility] Comment on above: Performed By: #### C DP, IOCAL, PT, PTT, BMP, MG, MAIKEL, TSHX #### [facility] [address] [place] [address] [phone] Equine Pharmacology Technician: Campos Escobedo MD Surgical Pathologyon 019 Surgical Pathology (NOTE) [id number] [facility] CONSULTING PATHOLOGISTS [facility] ANATOMIC PATHOLOGY [address] [place] [phone] SURGICAL PATHOLOGY CONSULTATION Patient Name: TANYA BLAKE [facility] Rec: [id number] Path Number: [id number] Collected: 08/21/2019 Received: 08/21/2019 Reported: 08/22/2019 13:12 -- Diagnosis -- Diagnosis pericardium, biopsy: Chronic inflammation and organizing fibrinous exudate. Negative for malignancy. Johnson Hurtado Electronically Signed Out rdd/08/22/2019 Clinical Information Pre-op Diagnosis: PERICARDIAL EFFUSION Operative Findings: PERICARDIUM Operation Performed: PERICARDIAL WINDOW CREATION Source of Specimen 1: PERICARDIUM Gross Description TANYA BLAKE PERICARDIUM Received fresh for frozen section are rubbery fragments of pink tissue 1 x 1 x 0.3 cm. FSX 1 1cs. Intraoperative Diagnosis FSDX: Pericardium, heavy inflammation. (RDD, 0812) Microscopic Description Microscopic examination performed. Normal [facility] Comment on above: Performed By: #### C DP, IOCAL, PT, PTT, BMP, MG, MAIKEL, TSHX #### [email or web address] [address] [place] [address] Equine Pharmacology Technician: Campos Escobedo MD Type + Screenon 08-21-2019 Type + Screen Sample Expiration 08/23/2019,2359 Arm Band Number [id number] ABO/Rh(D) O POSITIVE Antibody Screen NEGATIVE Unit Number [id number] Blood Component Type Leukocyte Reduced Red Cell Unit Division 00 Status of Unit REL FROM ALLOC Transfusion Status OK TO TRANSFUSE Crossmatch Result COMPATIBLE Unit Number [id number] Blood Component Type Leukocyte Reduced Red Cell Unit Division 00 Status of Unit REL FROM ALLOC Transfusion Status OK TO TRANSFUSE Crossmatch Result COMPATIBLE Normal [facility] Comment on above: Performed By: #### C DP, IOCAL, PT, PTT, BMP, MG, MAIKEL, TSHX #### [facility] [address] [place] [address] Equine Pharmacology Technician: Campos Escobedo MD XR CHEST PORTABLEon 08-21-20 XR CHEST PORTABLE EXAMINATION: ONE XRAY VIEW [...] Jillian Delong MD 08/21/19 Final result Normal [facility] APTTon 08-20-2019 aPTT Coag (Bld) [Time] 25.5 s Normal 20.5-30.5 [facility] Comment on above: Performed By: #### C DP, IOCAL, PT, PTT, BMP, MG, MAIKEL, TSHX #### [address] [phone] Equine Pharmacology Technician: Campos Escobedo MD Basic Metabolic Profon 08-20 (cont.) Normal [facility] Comment on above: Result Comment: Aver age GFR for 60-69 years old: 85 mL/min/1.73sq m Chronic Kidney Disease: <60 mL/min/1.73sq m Kidney failure: <15 mL/min/1.73sq m eGFR calculated using average adult body mass. Additional eGFR calculator available at: http://www.FlagTap.TORIA/multiple_crcl_2012.htm Performed By: #### C DP, IOCAL, PT, PTT, BMP, MG, MAIKEL, TSHX #### [address] [address] Equine Pharmacology Technician: Campos Escobedo MD Anion gap [Moles/Vol] 11 mmol/L Normal 9-17 [facility] Comment on above: Performed By: #### C DP, IOCAL, PT, PTT, BMP, MG, MAIKEL, TSHX #### [address] [address] Equine Pharmacology Technician: Campos Escobedo MD Calcium [Mass/Vol] 8.6 mg/dL Normal 8.6-10.4 [facility] Comment on above: Performed By: #### C DP, IOCAL, PT, PTT, BMP, MG, MAIKEL, TSHX #### [address] [address] Equine Pharmacology Technician: Campos Escobedo MD Chloride [Moles/Vol] 100 mmol/L Normal 98-107 [facility] Comment on above: Performed By: #### C DP, IOCAL, PT, PTT, BMP, MG, MAIKEL, TSHX #### [address] [address] Equine Pharmacology Technician: Campos Escobedo MD CO2 [Moles/Vol] 25 mmol/L Normal 20-31 [facility] Comment on above: Performed By: #### C DP, IOCAL, PT, PTT, BMP, MG, MAIKEL, TSHX #### [address] [address] Equine Pharmacology Technician: Campos Escobedo MD Creatinine [Mass/Vol] 0.55 mg/dL Normal 0.50-0.90 [facility] Comment on above: Performed By: #### C DP, IOCAL, PT, PTT, BMP, MG, MAIKEL, TSHX #### [address] [address] Equine Pharmacology Technician: Campos Escobedo MD GFR, Amer >60 Normal >60 [facility] Comment on above: Performed By: #### C DP, IOCAL, PT, PTT, BMP, MG, MAIKEL, TSHX #### [address] [address] Equine Pharmacology Technician: Campos Escobedo MD GFR,non Amer >60 Normal >60 [facility] Comment on above: Performed By: #### C DP, IOCAL, PT, PTT, BMP, MG, MAIKEL, TSHX #### [address] [address] Equine Pharmacology Technician: Campos Escobedo MD Glucose [Mass/Vol] 199 mg/dL High 70-99 [facility] Comment on above: Performed By: #### C DP, IOCAL, PT, PTT, BMP, MG, MAIKEL, TSHX #### [address] [address] Equine Pharmacology Technician: Campos Escobedo MD Potassium [Moles/Vol] 4.1 mmol/L Normal 3.7-5.3 [facility] Comment on above: Performed By: #### C DP, IOCAL, PT, PTT, BMP, MG, MAIKEL, TSHX #### [address] [address] Equine Pharmacology Technician: Campos Escobedo MD Sodium [Moles/Vol] 136 mmol/L Normal 135-144 [facility] Comment on above: Performed By: #### C DP, IOCAL, PT, PTT, BMP, MG, MAIKEL, TSHX #### [address] [phone] Equine Pharmacology Technician: Campos Escobedo MD Urea nitrogen [Mass/Vol] 11 mg/dL Normal 8-23 [facility] Comment on above: Performed By: #### C DP, IOCAL, PT, PTT, BMP, MG, MAIKEL, TSHX #### [address] [address] Equine Pharmacology Technician: Campos Escobedo MD BUN/CRE Ratio NOT REPORTED Normal - [facility] Comment on above: Performed By: #### C DP, IOCAL, PT, PTT, BMP, MG, MAIKEL, TSHX #### [address] [address] Equine Pharmacology Technician: Campos Escobedo MD Staging: NOT REPORTED Normal [facility] Comment on above: Performed By: #### C DP, IOCAL, PT, PTT, BMP, MG, MAIKEL, TSHX #### [address] [phone] Equine Pharmacology Technician: Campos Escobedo MD Blood Bank Specimenon 2018 Blood Bank Specimen NOT REPORTED Normal [facility] CBC with Diffon 08-20-2019 Abs. Basophil 0.09 k/uL Normal 0.00-0.20 [facility] Comment on above: Performed By: #### C DP, IOCAL, PT, PTT, BMP, MG, MAIKEL, TSHX #### [address] [address] Equine Pharmacology Technician: Campos Escobedo MD Abs.Imm.Granulocyte 0.09 k/uL Normal 0.00-0.30 [facility] Comment on above: Performed By: #### C DP, IOCAL, PT, PTT, BMP, MG, MAIKEL, TSHX #### [place] [address] Equine Pharmacology Technician: Campos Escobedo MD Abs.Neutrophil (Seg) 5.67 k/uL Normal 1.50-8.10 [facility] Comment on above: Performed By: #### C DP, IOCAL, PT, PTT, BMP, MG, MAIKEL, TSHX #### [place] [address] Equine Pharmacology Technician: Campos Escobedo MD Basophils/100 WBC (Bld) 1 % Normal 0-2 [facility] Comment on above: Performed By: #### C DP, IOCAL, PT, PTT, BMP, MG, MAIKEL, TSHX #### [place] [address] Equine Pharmacology Technician: Campos Escobedo MD Eosinophils (Bld) [#/Vol] 0.56 10*3/uL High 0.00-0.44 [facility] Comment on above: Performed By: #### C DP, IOCAL, PT, PTT, BMP, MG, MAIKEL, TSHX #### [place] [address] Equine Pharmacology Technician: Campos Escobedo MD Eosinophils/100 WBC (Bld) 6 % High 1-4 [facility] Comment on above: Performed By: #### C DP, IOCAL, PT, PTT, BMP, MG, MAIKEL, TSHX #### [place] [address] Equine Pharmacology Technician: Campos Escobedo MD Erythrocyte distribution width (RBC) [Ratio] 12.6 % Normal 11.8-14.4 [facility] Comment on above: Performed By: #### C DP, IOCAL, PT, PTT, BMP, MG, MAIKEL, TSHX #### [address] [place] [address] Equine Pharmacology Technician: Campos Escobedo MD Hematocrit (Bld) [Volume fraction] 35.6 % Low 36.3-47.1 [facility] Comment on above: Performed By: #### C DP, IOCAL, PT, PTT, BMP, MG, MAIKEL, TSHX #### [place] [address] Equine Pharmacology Technician: Campos Escobedo MD Hemoglobin (Bld) [Mass/Vol] 11.3 g/dL Low 11.9-15.1 [facility] Comment on above: Performed By: #### C DP, IOCAL, PT, PTT, BMP, MG, MAIKEL, TSHX #### [place] [address] Equine Pharmacology Technician: Campos Escobedo MD Immature granulocytes (Bld) [#/Vol] 1 % High 0 [facility] Comment on above: Performed By: #### C DP, IOCAL, PT, PTT, BMP, MG, MAIKEL, TSHX #### [place] [address] Equine Pharmacology Technician: Campos Escobedo MD Lymphocytes (Bld) [#/Vol] 1.57 10*3/uL Normal 1.10-3.70 [facility] Comment on above: Performed By: #### C DP, IOCAL, PT, PTT, BMP, MG, MAIKEL, TSHX #### [place] [address] Equine Pharmacology Technician: Campos Escobedo MD Lymphocytes/100 WBC (Bld) 18 % Low 24-43 [facility] Comment on above: Performed By: #### C DP, IOCAL, PT, PTT, BMP, MG, MAIKEL, TSHX #### [place] [address] Equine Pharmacology Technician: Campos Escobedo MD MCH (RBC) [Entitic mass] 30.5 pg Normal 25.2-33.5 [facility] Comment on above: Performed By: #### C DP, IOCAL, PT, PTT, BMP, MG, MAIKEL, TSHX #### [place] [address] Equine Pharmacology Technician: Campos Escobedo MD MCHC (RBC) [Mass/Vol] 31.7 g/dL Normal 28.4-34.8 [facility] Comment on above: Performed By: #### C DP, IOCAL, PT, PTT, BMP, MG, MAIKEL, TSHX #### [place] [address] Equine Pharmacology Technician: Campos Escobedo MD MCV (RBC) [Entitic vol] 96.0 fL Normal 82.6-102.9 [facility] Comment on above: Performed By: #### C DP, IOCAL, PT, PTT, BMP, MG, MAIKEL, TSHX #### [place] [address] Equine Pharmacology Technician: Campos Escobedo MD Monocytes (Bld) [#/Vol] 0.73 10*3/uL Normal 0.10-1.20 [facility] Comment on above: Performed By: #### C DP, IOCAL, PT, PTT, BMP, MG, MAIKEL, TSHX #### [place] [address] Equine Pharmacology Technician: Campos Escobedo MD Monocytes/100 WBC (Bld) 8 % Normal 3-12 [facility] Comment on above: Performed By: #### C DP, IOCAL, PT, PTT, BMP, MG, MAIKEL, TSHX #### [place] [address] Equine Pharmacology Technician: Campos Escobedo MD Neutrophil (Seg) 65 % Normal 36-65 [facility] Comment on above: Performed By: #### C DP, IOCAL, PT, PTT, BMP, MG, MAIKEL, TSHX #### [address] [address] Equine Pharmacology Technician: Campos Escobedo MD NRBC Automated 0.0 per 100 WBC Normal 0.0 [facility] Comment on above: Performed By: #### C DP, IOCAL, PT, PTT, BMP, MG, MAIKEL, TSHX #### [address] [address] Equine Pharmacology Technician: Campos Escobedo MD Platelet mean volume (Bld) [Entitic vol] 8.9 fL Normal 8.1-13.5 [facility] Comment on above: Performed By: #### C DP, IOCAL, PT, PTT, BMP, MG, MAIKEL, TSHX #### [address] [address] Equine Pharmacology Technician: Campos Escobedo MD Platelets (Bld) [#/Vol] 599 10*3/uL High 138-453 [facility] Comment on above: Performed By: #### C DP, IOCAL, PT, PTT, BMP, MG, MAIKEL, TSHX #### [address] [address] Equine Pharmacology Technician: Campos Escobedo MD RBC (Bld) [#/Vol] 3.71 10*6/uL Low 3.95-5.11 [facility] Comment on above: Performed By: #### C DP, IOCAL, PT, PTT, BMP, MG, MAIKEL, TSHX #### [address] [address] Equine Pharmacology Technician: Campos Escobedo MD WBC (Bld) [#/Vol] 8.7 10*3/uL Normal 3.5-11.3 [facility] Comment on above: Performed By: #### C DP, IOCAL, PT, PTT, BMP, MG, MAIKEL, TSHX #### [address] [address] Equine Pharmacology Technician: Campos Escobedo MD Auto Diff Performed NOT REPORTED Normal [facility] Comment on above: Performed By: #### C DP, IOCAL, PT, PTT, BMP, MG, MAIKEL, TSHX #### [address] [address] Equine Pharmacology Technician: Campos Escobedo MD Platelets (Bld) [#/Vol] NOT REPORTED Normal [facility] Comment on above: Performed By: #### C DP, IOCAL, PT, PTT, BMP, MG, MAIKEL, TSHX #### [address] [address] Equine Pharmacology Technician: Campos Escobedo MD RBC morphology finding Nom (Bld) NOT REPORTED Normal [facility] Comment on above: Performed By: #### C DP, IOCAL, PT, PTT, BMP, MG, MAIKEL, TSHX #### [facility] [address] [place] [address] Equine Pharmacology Technician: Campos Escobedo MD WBC Morphology NOT REPORTED Normal [facility] Comment on above: Performed By: #### C DP, IOCAL, PT, PTT, BMP, MG, MAIKEL, TSHX #### [facility] [address] [place] [address] Equine Pharmacology Technician: Campos Escobedo MD Calcium, Ionicon 08-20-2019 Calcium [Mass/Vol] 1.20 mmol/L Normal 1.13-1.33 [facility] Comment on above: Performed By: #### C DP, IOCAL, PT, PTT, BMP, MG, MAIKEL, TSHX #### [facility] [address] [place] [address] Equine Pharmacology Technician: Campos Escobedo MD Magnesiumon 08-20-2019 Magnesium [Mass/Vol] 2.0 mg/dL Normal 1.6-2.6 [facility] Comment on above: Performed By: #### C DP, IOCAL, PT, PTT, BMP, MG, MAIKEL, TSHX #### [address] [phone] Equine Pharmacology Technician: Campos Escobedo MD PTon 08-20-2019 INR Coag (PPP) [Relative time] 1.0 {INR} Normal [facility] Comment on above: Result Comment: Therapeutic Range: Moderate Anticoagulant Intensity: INR = 2.0-3.0 High Anticoagulant Intensity: INR = 2.5-3.5 Performed By: #### C DP, IOCAL, PT, PTT, BMP, MG, MAIKEL, TSHX #### [address] [phone] Equine Pharmacology Technician: Campos Escobedo MD PT Coag (PPP) [Time] 10.3 s Normal 9.0-12.0 [facility] Comment on above: Performed By: #### C DP, IOCAL, PT, PTT, BMP, MG, MAIKEL, TSHX #### [address] [phone] Equine Pharmacology Technician: Campos Escobedo MD Phosphorus, Inorg.on 019 Phosphorus, Inorg. 3.4 mg/dL Normal 2.6-4.5 [facility] Comment on above: Performed By: #### C DP, IOCAL, PT, PTT, BMP, MG, MAIKEL, TSHX #### [address] [phone] Equine Pharmacology Technician: Campos Escobedo MD APTTon 08-19-2019 aPTT Coag (Bld) [Time] 26.3 s Normal 20.5-30.5 [facility] Comment on above: Performed By: #### C DP, IOCAL, PT, PTT, BMP, MG, MAIKEL, TSHX #### [address] [phone] Equine Pharmacology Technician: Campos Escobedo MD Basic Metabolic Profon 08-19 (cont.) [facility] Comment on above: Result Comment: Aver age GFR for 60-69 years old: 85 mL/min/1.73sq m Chronic Kidney Disease: <60 mL/min/1.73sq m Kidney failure: <15 mL/min/1.73sq m eGFR calculated using average adult body mass. Additional eGFR calculator available at: http://www.FlagTap.TORIA/multiple_crcl_2012.htm Performed By: #### C DP, IOCAL, PT, PTT, BMP, MG, MAIKEL, TSHX #### [address] [address] Equine Pharmacology Technician: Campos Escobedo MD Anion gap [Moles/Vol] 12 mmol/L Normal 9-17 [facility] Comment on above: Performed By: #### C DP, IOCAL, PT, PTT, BMP, MG, MAIKEL, TSHX #### [address] [address] Equine Pharmacology Technician: Campos Escobedo MD Calcium [Mass/Vol] 8.7 mg/dL Normal 8.6-10.4 [facility] Comment on above: Performed By: #### C DP, IOCAL, PT, PTT, BMP, MG, MAIKEL, TSHX #### [address] [address] Equine Pharmacology Technician: Campos Escobedo MD Chloride [Moles/Vol] 101 mmol/L Normal 98-107 [facility] Comment on above: Performed By: #### C DP, IOCAL, PT, PTT, BMP, MG, MAIKEL, TSHX #### [address] [address] Equine Pharmacology Technician: Campos Escobedo MD CO2 [Moles/Vol] 24 mmol/L Normal 20-31 [facility] Comment on above: Performed By: #### C DP, IOCAL, PT, PTT, BMP, MG, MAIKEL, TSHX #### [address] [phone] Equine Pharmacology Technician: Campos Escobedo MD Creatinine [Mass/Vol] 0.47 mg/dL Low 0.50-0.90 [facility] Comment on above: Performed By: #### C DP, IOCAL, PT, PTT, BMP, MG, MAIKEL, TSHX #### [address] [address] Equine Pharmacology Technician: Campos Escobedo MD GFR, Amer >60 Normal >60 [facility] Comment on above: Performed By: #### C DP, IOCAL, PT, PTT, BMP, MG, MAIKEL, TSHX #### [place] [address] Equine Pharmacology Technician: Campos Escobedo MD GFR,non Amer >60 Normal >60 [facility] Comment on above: Performed By: #### C DP, IOCAL, PT, PTT, BMP, MG, MAIKEL, TSHX #### [address] [address] Equine Pharmacology Technician: Campos Escobedo MD Glucose [Mass/Vol] 200 mg/dL High 70-99 [facility] Comment on above: Performed By: #### C DP, IOCAL, PT, PTT, BMP, MG, MAIKEL, TSHX #### [address] [address] Equine Pharmacology Technician: Campos Escobedo MD Potassium [Moles/Vol] 4.3 mmol/L Normal 3.7-5.3 [facility] Comment on above: Performed By: #### C DP, IOCAL, PT, PTT, BMP, MG, MAIKEL, TSHX #### [address] [address] Equine Pharmacology Technician: Campos Escobedo MD Sodium [Moles/Vol] 137 mmol/L Normal 135-144 [facility] Comment on above: Performed By: #### C DP, IOCAL, PT, PTT, BMP, MG, MAIKEL, TSHX #### [address] [address] Equine Pharmacology Technician: Campos Escobedo MD Urea nitrogen [Mass/Vol] 9 mg/dL Normal - [facility] Comment on above: Performed By: #### C DP, IOCAL, PT, PTT, BMP, MG, MAIKEL, TSHX #### [address] [address] Equine Pharmacology Technician: Campos Escobedo MD BUN/CRE Ratio NOT REPORTED Normal - [facility] Comment on above: Performed By: #### C DP, IOCAL, PT, PTT, BMP, MG, MAIKEL, TSHX #### [address] [address] Equine Pharmacology Technician: Campos Escobedo MD Staging: NOT REPORTED Normal [facility] Comment on above: Performed By: #### C DP, IOCAL, PT, PTT, BMP, MG, MAIKEL, TSHX #### [address] [address] Equine Pharmacology Technician: Campos Escobedo MD CBC with Diffon 08-19-2019 Abs. Basophil 0.07 k/uL Normal 0.00-0.20 [facility] Comment on above: Performed By: #### C DP, IOCAL, PT, PTT, BMP, MG, MAIKEL, TSHX #### [address] [address] Equine Pharmacology Technician: Campos Escobedo MD Abs.Imm.Granulocyte 0.09 k/uL Normal 0.00-0.30 [facility] Comment on above: Performed By: #### C DP, IOCAL, PT, PTT, BMP, MG, MAIKEL, TSHX #### [address] [address] Equine Pharmacology Technician: Campos Escobedo MD Abs.Neutrophil (Seg) 5.72 k/uL Normal 1.50-8.10 [facility] Comment on above: Performed By: #### C DP, IOCAL, PT, PTT, BMP, MG, MAIKEL, TSHX #### [place] [address] Equine Pharmacology Technician: Campos Escobedo MD Basophils/100 WBC (Bld) 1 % Normal 0-2 [facility] Comment on above: Performed By: #### C DP, IOCAL, PT, PTT, BMP, MG, MAIKEL, TSHX #### [place] [address] Equine Pharmacology Technician: Campos Escobedo MD Eosinophils (Bld) [#/Vol] 0.49 10*3/uL High 0.00-0.44 [facility] Comment on above: Performed By: #### C DP, IOCAL, PT, PTT, BMP, MG, MAIKEL, TSHX #### [place] [address] Equine Pharmacology Technician: Campos Escobedo MD Eosinophils/100 WBC (Bld) 6 % High 1-4 [facility] Comment on above: Performed By: #### C DP, IOCAL, PT, PTT, BMP, MG, MAIKEL, TSHX #### [place] [address] Equine Pharmacology Technician: aCmpos Escobedo MD Erythrocyte distribution width (RBC) [Ratio] 12.7 % Normal 11.8-14.4 [facility] Comment on above: Performed By: #### C DP, IOCAL, PT, PTT, BMP, MG, MAIKEL, TSHX #### [facility] [address] [place] [address] Equine Pharmacology Technician: Campos Escobedo MD Hematocrit (Bld) [Volume fraction] 37.4 % Normal 36.3-47.1 [facility] Comment on above: Performed By: #### C DP, IOCAL, PT, PTT, BMP, MG, MAIKEL, TSHX #### [address] [address] Equine Pharmacology Technician: Campos Escobedo MD Hemoglobin (Bld) [Mass/Vol] 11.7 g/dL Low 11.9-15.1 [facility] Comment on above: Performed By: #### C DP, IOCAL, PT, PTT, BMP, MG, MAIKEL, TSHX #### [address] [address] Equine Pharmacology Technician: Campos Escobedo MD Immature granulocytes (Bld) [#/Vol] 1 % High 0 [facility] Comment on above: Performed By: #### C DP, IOCAL, PT, PTT, BMP, MG, MAIKEL, TSHX #### [address] [address] Equine Pharmacology Technician: Campos Escobedo MD Lymphocytes (Bld) [#/Vol] 1.24 10*3/uL Normal 1.10-3.70 [facility] Comment on above: Performed By: #### C DP, IOCAL, PT, PTT, BMP, MG, AMIKEL, TSHX #### [address] [address] Equine Pharmacology Technician: Campos Escobedo MD Lymphocytes/100 WBC (Bld) 15 % Low 24-43 [facility] Comment on above: Performed By: #### C DP, IOCAL, PT, PTT, BMP, MG, MAIKEL, TSHX #### [facility] [address] [place] [address] Equine Pharmacology Technician: Campos Escobedo MD MCH (RBC) [Entitic mass] 30.2 pg Normal 25.2-33.5 [facility] Comment on above: Performed By: #### C DP, IOCAL, PT, PTT, BMP, MG, MAIKEL, TSHX #### [address] [address] Equine Pharmacology Technician: Campos Escobedo MD MCHC (RBC) [Mass/Vol] 31.3 g/dL Normal 28.4-34.8 [facility] Comment on above: Performed By: #### C DP, IOCAL, PT, PTT, BMP, MG, MAIKEL, TSHX #### [address] [address] Equine Pharmacology Technician: Campos Escobedo MD MCV (RBC) [Entitic vol] 96.6 fL Normal 82.6-102.9 [facility] Comment on above: Performed By: #### C DP, IOCAL, PT, PTT, BMP, MG, MAIKEL, TSHX #### [place] [address] Equine Pharmacology Technician: Campos Escobedo MD Monocytes (Bld) [#/Vol] 0.72 10*3/uL Normal 0.10-1.20 [facility] Comment on above: Performed By: #### C DP, IOCAL, PT, PTT, BMP, MG, MAIKEL, TSHX #### [address] [address] Equine Pharmacology Technician: Campos Escobedo MD Monocytes/100 WBC (Bld) 9 % Normal 3-12 [facility] Comment on above: Performed By: #### C DP, IOCAL, PT, PTT, BMP, MG, MAIKEL, TSHX #### [place] [address] Equine Pharmacology Technician: Campos Escobedo MD Neutrophil (Seg) 69 % High 36-65 [facility] Comment on above: Performed By: #### C DP, IOCAL, PT, PTT, BMP, MG, MAIKEL, TSHX #### [address] [address] Equine Pharmacology Technician: Campos Escobedo MD NRBC Automated 0.0 per 100 WBC Normal 0.0 [facility] Comment on above: Performed By: #### C DP, IOCAL, PT, PTT, BMP, MG, MAIKEL, TSHX #### [address] [address] Equine Pharmacology Technician: Campos Escobedo MD Platelet mean volume (Bld) [Entitic vol] 8.6 fL Normal 8.1-13.5 [facility] Comment on above: Performed By: #### C DP, IOCAL, PT, PTT, BMP, MG, MAIKEL, TSHX #### [address] [address] Equine Pharmacology Technician: Campos Escobedo MD Platelets (Bld) [#/Vol] 588 10*3/uL High 138-453 [facility] Comment on above: Performed By: #### C DP, IOCAL, PT, PTT, BMP, MG, MAIKEL, TSHX #### [place] [address] Equine Pharmacology Technician: Campos Escobedo MD RBC (Bld) [#/Vol] 3.87 10*6/uL Low 3.95-5.11 [facility] Comment on above: Performed By: #### C DP, IOCAL, PT, PTT, BMP, MG, MAIKEL, TSHX #### [address] [address] Equine Pharmacology Technician: Campos Escobedo MD WBC (Bld) [#/Vol] 8.3 10*3/uL Normal 3.5-11.3 [facility] Comment on above: Performed By: #### C DP, IOCAL, PT, PTT, BMP, MG, MAIKEL, TSHX #### [place] [address] Equine Pharmacology Technician: Campos Escobedo MD Auto Diff Performed NOT REPORTED Normal [facility] Comment on above: Performed By: #### C DP, IOCAL, PT, PTT, BMP, MG, MAIKEL, TSHX #### [place] [address] Equine Pharmacology Technician: Campos Escobedo MD Platelets (Bld) [#/Vol] NOT REPORTED Normal [facility] Comment on above: Performed By: #### C DP, IOCAL, PT, PTT, BMP, MG, MAIKEL, TSHX #### [address] [address] Equine Pharmacology Technician: Campos Escobedo MD RBC morphology finding Nom (Bld) NOT REPORTED Normal [facility] Comment on above: Performed By: #### C DP, IOCAL, PT, PTT, BMP, MG, MAIKEL, TSHX #### [address] [address] Equine Pharmacology Technician: Campos Escobedo MD WBC Morphology NOT REPORTED Normal [facility] Comment on above: Performed By: #### C DP, IOCAL, PT, PTT, BMP, MG, MAIKEL, TSHX #### [address] [address] Equine Pharmacology Technician: Campos Escobedo MD Calcium, Ionicon 08-19-2019 Calcium [Mass/Vol] 0.99 mmol/L Low 1.13-1.33 [facility] Comment on above: Performed By: #### C DP, IOCAL, PT, PTT, BMP, MG, MAIKEL, TSHX #### [address] [address] Equine Pharmacology Technician: Campos Escobedo MD Hemoglobin A1Con 08-19-2019 HbA1c (Bld) [Mass fraction] 7.4 % High 4.0-6.0 [facility] Comment on above: Performed By: #### C DP, IOCAL, PT, PTT, BMP, MG, MAIKEL, TSHX #### [address] [address] Equine Pharmacology Technician: Campos Escobedo MD HbA1c (Bld) [Mass fraction] 166 mg/dL Normal [facility] Comment on above: Result Comment: The ADA and AACC recommend providing the estimated average glucose result to permit better patient understanding of their HBA1c result. Performed By: #### C DP, IOCAL, PT, PTT, BMP, MG, MAIKEL, TSHX #### [facility] [address] [place] [address] [phone] Equine Pharmacology Technician: Campos Escobedo MD Inf Dis Interventionon 08-19 Intervention: IV to PO Normal [facility] Comment on above: Performed By: #### C DP, IOCAL, PT, PTT, BMP, MG, MAIKEL, TSHX #### [address] [phone] Equine Pharmacology Technician: Campos Escobedo MD Magnesiumon 08-19-2019 Magnesium [Mass/Vol] 2.2 mg/dL Normal 1.6-2.6 [facility] Comment on above: Performed By: #### C DP, IOCAL, PT, PTT, BMP, MG, MAIKEL, TSHX #### [address] [phone] Equine Pharmacology Technician: Campos Escobedo MD PTon 08-19-2019 INR Coag (PPP) [Relative time] 0.9 {INR} Normal [facility] Comment on above: Result Comment: Therapeutic Range: Moderate Anticoagulant Intensity: INR = 2.0-3.0 High Anticoagulant Intensity: INR = 2.5-3.5 Performed By: #### C DP, IOCAL, PT, PTT, BMP, MG, MAIKEL, TSHX #### [address] [phone] Equine Pharmacology Technician: Campos Escobedo MD PT Coag (PPP) [Time] 10.0 s Normal 9.0-12.0 [facility] Comment on above: Performed By: #### C DP, IOCAL, PT, PTT, BMP, MG, MAIKEL, TSHX #### [facility] [address] [place] [address] [phone] Equine Pharmacology Technician: Campos Escobedo MD Phosphorus, Inorg.on 019 Phosphorus, Inorg. 3.3 mg/dL Normal 2.6-4.5 [facility] Comment on above: Performed By: #### C DP, IOCAL, PT, PTT, BMP, MG, MAIKEL, TSHX #### [address] [phone] Equine Pharmacology Technician: Campos Escobedo MD APTTon 08-18-2019 aPTT Coag (Bld) [Time] 24.7 s Normal 20.5-30.5 [facility] Comment on above: Performed By: #### C DP, IOCAL, PT, PTT, BMP, MG, MAIKEL, TSHX #### [address] [phone] Equine Pharmacology Technician: Campos Escobedo MD Basic Metabolic Profon 08-18 (cont.) Normal [facility] Comment on above: Result Comment: Aver age GFR for 60-69 years old: 85 mL/min/1.73sq m Chronic Kidney Disease: <60 mL/min/1.73sq m Kidney failure: <15 mL/min/1.73sq m eGFR calculated using average adult body mass. Additional eGFR calculator available at: http://www.FlagTap.TORIA/multiple_crcl_2012.htm Performed By: #### C DP, IOCAL, PT, PTT, BMP, MG, MAIKEL, TSHX #### [address] [phone] Equine Pharmacology Technician: Campos Escobedo MD Anion gap [Moles/Vol] 12 mmol/L Normal 9-17 [facility] Comment on above: Performed By: #### C DP, IOCAL, PT, PTT, BMP, MG, MAIKEL, TSHX #### [address] [phone] Equine Pharmacology Technician: Campos Escobedo MD Calcium [Mass/Vol] 8.9 mg/dL Normal 8.6-10.4 [facility] Comment on above: Performed By: #### C DP, IOCAL, PT, PTT, BMP, MG, MAIKEL, TSHX #### [address] [address] Equine Pharmacology Technician: Campos Escobedo MD Chloride [Moles/Vol] 98 mmol/L Normal 98-107 [facility] Comment on above: Performed By: #### C DP, IOCAL, PT, PTT, BMP, MG, MAIKEL, TSHX #### [address] [address] Equine Pharmacology Technician: Campos Escobedo MD CO2 [Moles/Vol] 26 mmol/L Normal 20-31 [facility] Comment on above: Performed By: #### C DP, IOCAL, PT, PTT, BMP, MG, MAIKEL, TSHX #### [address] [address] Equine Pharmacology Technician: Campos Escobedo MD Creatinine [Mass/Vol] 0.51 mg/dL Normal 0.50-0.90 [facility] Comment on above: Performed By: #### C DP, IOCAL, PT, PTT, BMP, MG, MAIKEL, TSHX #### [address] [address] Equine Pharmacology Technician: Campos Escobedo MD GFR, Amer >60 Normal >60 [facility] Comment on above: Performed By: #### C DP, IOCAL, PT, PTT, BMP, MG, MAIKEL, TSHX #### [address] [address] Equine Pharmacology Technician: Campos Escobedo MD GFR,non Amer >60 Normal >60 [facility] Comment on above: Performed By: #### C DP, IOCAL, PT, PTT, BMP, MG, MAIKEL, TSHX #### [address] [address] Equine Pharmacology Technician: Campos Escobedo MD Glucose [Mass/Vol] 206 mg/dL High 70-99 [facility] Comment on above: Performed By: #### C DP, IOCAL, PT, PTT, BMP, MG, MAIKEL, TSHX #### [facility] [address] [place] [address] Equine Pharmacology Technician: Campos Escobedo MD Potassium [Moles/Vol] 4.8 mmol/L Normal 3.7-5.3 [facility] Comment on above: Result Comment: SPEC IMEN SLIGHTLY HEMOLYZED, RESULTS MAY BE ADVERSELY AFFECTED. Performed By: #### C DP, IOCAL, PT, PTT, BMP, MG, MAIKEL, TSHX #### [address] [address] Equine Pharmacology Technician: Campos Escobedo MD Sodium [Moles/Vol] 136 mmol/L Normal 135-144 [facility] Comment on above: Performed By: #### C DP, IOCAL, PT, PTT, BMP, MG, MAIKEL, TSHX #### [facility] [address] [place] [address] Equine Pharmacology Technician: Campos Escobedo MD Urea nitrogen [Mass/Vol] 8 mg/dL Normal 8-23 [facility] Comment on above: Performed By: #### C DP, IOCAL, PT, PTT, BMP, MG, MAIKEL, TSHX #### [facility] [address] [place] [phone] Equine Pharmacology Technician: Campos Escobedo MD BUN/CRE Ratio NOT REPORTED Normal 9-20 [facility] Comment on above: Performed By: #### C DP, IOCAL, PT, PTT, BMP, MG, MAIKEL, TSHX #### [address] [address] Equine Pharmacology Technician: Campos Escobedo MD Staging: NOT REPORTED Normal [facility] Comment on above: Performed By: #### C DP, IOCAL, PT, PTT, BMP, MG, MAIKEL, TSHX #### [address] [address] Equine Pharmacology Technician: Campos Escobedo MD CBC with Diffon 08-18-2019 Abs. Basophil 0.08 k/uL Normal 0.00-0.20 [facility] Comment on above: Performed By: #### C DP, IOCAL, PT, PTT, BMP, MG, MAIKEL, TSHX #### [place] [address] Equine Pharmacology Technician: Campos Escobedo MD Abs.Imm.Granulocyte 0.08 k/uL Normal 0.00-0.30 [facility] Comment on above: Performed By: #### C DP, IOCAL, PT, PTT, BMP, MG, MAIKEL, TSHX #### [place] [address] Equine Pharmacology Technician: Campos Escobedo MD Abs.Neutrophil (Seg) 6.32 k/uL Normal 1.50-8.10 [facility] Comment on above: Performed By: #### C DP, IOCAL, PT, PTT, BMP, MG, MAIKEL, TSHX #### [place] [address] Equine Pharmacology Technician: Campos Escobedo MD Basophils/100 WBC (Bld) 1 % Normal 0-2 [facility] Comment on above: Performed By: #### C DP, IOCAL, PT, PTT, BMP, MG, MAIKEL, TSHX #### [place] [address] Equine Pharmacology Technician: Campos Escobedo MD Eosinophils (Bld) [#/Vol] 0.43 10*3/uL Normal 0.00-0.44 [facility] Comment on above: Performed By: #### C DP, IOCAL, PT, PTT, BMP, MG, MAIKEL, TSHX #### [place] [address] Equine Pharmacology Technician: Campos Escobedo MD Eosinophils/100 WBC (Bld) 5 % High 1-4 [facility] Comment on above: Performed By: #### C DP, IOCAL, PT, PTT, BMP, MG, MAIKEL, TSHX #### [place] [address] Equine Pharmacology Technician: Campos Escobedo MD Erythrocyte distribution width (RBC) [Ratio] 12.7 % Normal 11.8-14.4 [facility] Comment on above: Performed By: #### C DP, IOCAL, PT, PTT, BMP, MG, MAIKEL, TSHX #### [place] [address] Equine Pharmacology Technician: Campos Escobedo MD Hematocrit (Bld) [Volume fraction] 36.6 % Normal 36.3-47.1 [facility] Comment on above: Performed By: #### C DP, IOCAL, PT, PTT, BMP, MG, MAIKEL, TSHX #### [place] [address] Equine Pharmacology Technician: Campos Escobedo MD Hemoglobin (Bld) [Mass/Vol] 11.7 g/dL Low 11.9-15.1 [facility] Comment on above: Performed By: #### C DP, IOCAL, PT, PTT, BMP, MG, MAIKEL, TSHX #### [place] [address] Equine Pharmacology Technician: Campos Escobedo MD Immature granulocytes (Bld) [#/Vol] 1 % High 0 [facility] Comment on above: Performed By: #### C DP, IOCAL, PT, PTT, BMP, MG, MAIKEL, TSHX #### [place] [address] Equine Pharmacology Technician: Campos Escobedo MD Lymphocytes (Bld) [#/Vol] 1.17 10*3/uL Normal 1.10-3.70 [facility] Comment on above: Performed By: #### C DP, IOCAL, PT, PTT, BMP, MG, MAIKEL, TSHX #### [address] [address] Equine Pharmacology Technician: Campos Escobedo MD Lymphocytes/100 WBC (Bld) 13 % Low 24-43 [facility] Comment on above: Performed By: #### C DP, IOCAL, PT, PTT, BMP, MG, MAIKEL, TSHX #### [address] [address] Equine Pharmacology Technician: Campos Escobedo MD MCH (RBC) [Entitic mass] 31.0 pg Normal 25.2-33.5 [facility] Comment on above: Performed By: #### C DP, IOCAL, PT, PTT, BMP, MG, MAIKEL, TSHX #### [address] [address] Equine Pharmacology Technician: Campos Escobedo MD MCHC (RBC) [Mass/Vol] 32.0 g/dL Normal 28.4-34.8 [facility] Comment on above: Performed By: #### C DP, IOCAL, PT, PTT, BMP, MG, MAIKEL, TSHX #### [address] [address] Equine Pharmacology Technician: Campos Escobedo MD MCV (RBC) [Entitic vol] 97.1 fL Normal 82.6-102.9 [facility] Comment on above: Performed By: #### C DP, IOCAL, PT, PTT, BMP, MG, MAIKEL, TSHX #### [address] [phone] Equine Pharmacology Technician: Campos Escobedo MD Monocytes (Bld) [#/Vol] 0.71 10*3/uL Normal 0.10-1.20 [facility] Comment on above: Performed By: #### C DP, IOCAL, PT, PTT, BMP, MG, MAIKEL, TSHX #### [address] [address] Equine Pharmacology Technician: Campos Escobedo MD Monocytes/100 WBC (Bld) 8 % Normal 3-12 [facility] Comment on above: Performed By: #### C DP, IOCAL, PT, PTT, BMP, MG, MAIKEL, TSHX #### [address] [address] Equine Pharmacology Technician: Campos Escobedo MD Neutrophil (Seg) 72 % High 36-65 [facility] Comment on above: Performed By: #### C DP, IOCAL, PT, PTT, BMP, MG, MAIKEL, TSHX #### [address] [address] Equine Pharmacology Technician: Campos Escobedo MD NRBC Automated 0.0 per 100 WBC Normal 0.0 [facility] Comment on above: Performed By: #### C DP, IOCAL, PT, PTT, BMP, MG, MAIKEL, TSHX #### [address] [address] Equine Pharmacology Technician: Campos Escobedo MD Platelet mean volume (Bld) [Entitic vol] 8.8 fL Normal 8.1-13.5 [facility] Comment on above: Performed By: #### C DP, IOCAL, PT, PTT, BMP, MG, MAIKEL, TSHX #### [address] [address] Equine Pharmacology Technician: Campos Escobedo MD Platelets (Bld) [#/Vol] 612 10*3/uL High 138-453 [facility] Comment on above: Performed By: #### C DP, IOCAL, PT, PTT, BMP, MG, MAIKEL, TSHX #### [address] [address] Equine Pharmacology Technician: Campos Escobedo MD RBC (Bld) [#/Vol] 3.77 10*6/uL Low 3.95-5.11 [facility] Comment on above: Performed By: #### C DP, IOCAL, PT, PTT, BMP, MG, MAIKEL, TSHX #### [address] [address] Equine Pharmacology Technician: Campos Escobedo MD WBC (Bld) [#/Vol] 8.8 10*3/uL Normal 3.5-11.3 [facility] Comment on above: Performed By: #### C DP, IOCAL, PT, PTT, BMP, MG, MAIKEL, TSHX #### [address] [address] Equine Pharmacology Technician: Campos Escobedo MD Auto Diff Performed NOT REPORTED Normal [facility] Comment on above: Performed By: #### C DP, IOCAL, PT, PTT, BMP, MG, MAIKEL, TSHX #### [address] [address] Equine Pharmacology Technician: Campos Escobedo MD Platelets (Bld) [#/Vol] NOT REPORTED Normal [facility] Comment on above: Performed By: #### C DP, IOCAL, PT, PTT, BMP, MG, MAIKEL, TSHX #### [address] [address] Equine Pharmacology Technician: Campos Escobedo MD RBC morphology finding Nom (Bld) NOT REPORTED Normal [facility] Comment on above: Performed By: #### C DP, IOCAL, PT, PTT, BMP, MG, MAIKEL, TSHX #### [address] [address] Equine Pharmacology Technician: Campos Escobedo MD WBC Morphology NOT REPORTED Normal [facility] Comment on above: Performed By: #### C DP, IOCAL, PT, PTT, BMP, MG, MAIKEL, TSHX #### [address] [address] Equine Pharmacology Technician: Campos Escobedo MD Calcium, Ionicon 08-18-2019 Calcium [Mass/Vol] 1.14 mmol/L Normal 1.13-1.33 [facility] Comment on above: Performed By: #### C DP, TROPI, BMP, CRP, SED #### [facility] [address] [place], [place] [id number] Equine Pharmacology Technician: Campos Escobedo MD Magnesiumon 08-18-2019 Magnesium [Mass/Vol] 2.1 mg/dL Normal 1.6-2.6 [facility] Comment on above: Performed By: #### C DP, IOCAL, PT, PTT, BMP, MG, MAIKEL, TSHX #### [facility] [address] [place] [address] Equine Pharmacology Technician: Campos Escobedo MD PTon 08-18-2019 INR Coag (PPP) [Relative time] 1.0 {INR} Normal [facility] Comment on above: Result Comment: Therapeutic Range: Moderate Anticoagulant Intensity: INR = 2.0-3.0 High Anticoagulant Intensity: INR = 2.5-3.5 Performed By: #### C DP, IOCAL, PT, PTT, BMP, MG, MAIKEL, TSHX #### [facility] [address] [place] [address] Equine Pharmacology Technician: Capmos Escobedo MD PT Coag (PPP) [Time] 10.3 s Normal 9.0-12.0 [facility] Comment on above: Performed By: #### C DP, IOCAL, PT, PTT, BMP, MG, MAIKEL, TSHX #### [facility] [address] [place] [address] Equine Pharmacology Technician: Campos Escobedo MD Phosphorus, Inorg.on 019 Phosphorus, Inorg. 3.4 mg/dL Normal 2.6-4.5 [facility] Comment on above: Performed By: #### C DP, IOCAL, PT, PTT, BMP, MG, MAIKEL, TSHX #### [address] [id number] Equine Pharmacology Technician: Campos Escobedo MD APTTon 08-17-2019 aPTT Coag (Bld) [Time] 26.5 s Normal 20.5-30.5 [facility] Comment on above: Performed By: #### C DP, TROPI, BMP, CRP, SED #### [address] [id number] Equine Pharmacology Technician: Campos Escobedo MD Basic Metabolic Profon 08-17 (cont.) Normal [facility] Comment on above: Result Comment: Aver age GFR for 60-69 years old: 85 mL/min/1.73sq m Chronic Kidney Disease: <60 mL/min/1.73sq m Kidney failure: <15 mL/min/1.73sq m eGFR calculated using average adult body mass. Additional eGFR calculator available at: http://www.[employer]/multiple_crcl_2012.htm Performed By: #### C DP, TROPI, BMP, CRP, SED #### [address] [address] Equine Pharmacology Technician: Campos Escobedo MD Anion gap [Moles/Vol] 11 mmol/L Normal 9-17 [facility] Comment on above: Performed By: #### C DP, TROPI, BMP, CRP, SED #### [address] [id number] Equine Pharmacology Technician: Campos Escobedo MD Calcium [Mass/Vol] 8.6 mg/dL Normal 8.6-10.4 [facility] Comment on above: Performed By: #### C DP, TROPI, BMP, CRP, SED #### [address] [address] Equine Pharmacology Technician: Campos Escobedo MD Chloride [Moles/Vol] 101 mmol/L Normal 98-107 [facility] Comment on above: Performed By: #### C DP, TROPI, BMP, CRP, SED #### [facility] [address] [place] [address] Equine Pharmacology Technician: Campos Escobedo MD CO2 [Moles/Vol] 27 mmol/L Normal 20-31 [facility] Comment on above: Performed By: #### C DP, TROPI, BMP, CRP, SED #### [address] [address] Equine Pharmacology Technician: Campos Escobedo MD Creatinine [Mass/Vol] 0.57 mg/dL Normal 0.50-0.90 [facility] Comment on above: Performed By: #### C DP, TROPI, BMP, CRP, SED #### [facility] [address] [place] [address] Equine Pharmacology Technician: Campos Escobedo MD GFR, Amer >60 Normal >60 [facility] Comment on above: Performed By: #### C DP, TROPI, BMP, CRP, SED #### [facility] [address] [place] [address] Equine Pharmacology Technician: Campos Escobedo MD GFR,non Amer >60 Normal >60 [facility] Comment on above: Performed By: #### C DP, TROPI, BMP, CRP, SED #### [facility] [address] [place] [address] Equine Pharmacology Technician: Campos Escobedo MD Glucose [Mass/Vol] 178 mg/dL High 70-99 [facility] Comment on above: Performed By: #### C DP, TROPI, BMP, CRP, SED #### [facility] [address] [place] [address] Equine Pharmacology Technician: Campos Escobedo MD Potassium [Moles/Vol] 4.1 mmol/L Normal 3.7-5.3 [facility] Comment on above: Performed By: #### C DP, TROPI, BMP, CRP, SED #### [address] [address] Equine Pharmacology Technician: Campos Escobedo MD Sodium [Moles/Vol] 139 mmol/L Normal 135-144 [facility] Comment on above: Performed By: #### C DP, TROPI, BMP, CRP, SED #### [address] [address] Equine Pharmacology Technician: Campos Escobedo MD Urea nitrogen [Mass/Vol] 10 mg/dL Normal 8-23 [facility] Comment on above: Performed By: #### C DP, TROPI, BMP, CRP, SED #### [address] [address] Equine Pharmacology Technician: Campos Escobedo MD BUN/CRE Ratio NOT REPORTED Normal 9-20 [facility] Comment on above: Performed By: #### C DP, TROPI, BMP, CRP, SED #### [address] [address] Equine Pharmacology Technician: Campos Escobedo MD Staging: NOT REPORTED Normal [facility] Comment on above: Performed By: #### C DP, TROPI, BMP, CRP, SED #### [address] [address] Equine Pharmacology Technician: Campos Escobdeo MD CBC with Diffon 08-17-2019 Abs. Basophil 0.07 k/uL Normal 0.00-0.20 [facility] Comment on above: Performed By: #### C DP, TROPI, BMP, CRP, SED #### [facility] [address] [place] [address] Equine Pharmacology Technician: Campos Escobedo MD Abs.Imm.Granulocyte 0.11 k/uL Normal 0.00-0.30 [facility] Comment on above: Performed By: #### C DP, TROPI, BMP, CRP, SED #### [address] [address] Equine Pharmacology Technician: Campos Escobedo MD Abs.Neutrophil (Seg) 6.28 k/uL Normal 1.50-8.10 [facility] Comment on above: Performed By: #### C DP, TROPI, BMP, CRP, SED #### [address] [address] Equine Pharmacology Technician: Campos Escobedo MD Basophils/100 WBC (Bld) 1 % Normal 0-2 [facility] Comment on above: Performed By: #### C DP, TROPI, BMP, CRP, SED #### [place] [address] Equine Pharmacology Technician: Campos Escobedo MD Eosinophils (Bld) [#/Vol] 0.43 10*3/uL Normal 0.00-0.44 [facility] Comment on above: Performed By: #### C DP, TROPI, BMP, CRP, SED #### [place] [address] Equine Pharmacology Technician: Campos Escobedo MD Eosinophils/100 WBC (Bld) 5 % High 1-4 [facility] Comment on above: Performed By: #### C DP, TROPI, BMP, CRP, SED #### [place] [address] Equine Pharmacology Technician: Campos Escobedo MD Erythrocyte distribution width (RBC) [Ratio] 12.7 % Normal 11.8-14.4 [facility] Comment on above: Performed By: #### C DP, TROPI, BMP, CRP, SED #### [place] [address] Equine Pharmacology Technician: Campos Escobedo MD Hematocrit (Bld) [Volume fraction] 33.9 % Low 36.3-47.1 [facility] Comment on above: Performed By: #### C DP, TROPI, BMP, CRP, SED #### [address] [address] Equine Pharmacology Technician: Campos Escobedo MD Hemoglobin (Bld) [Mass/Vol] 10.6 g/dL Low 11.9-15.1 [facility] Comment on above: Performed By: #### C DP, TROPI, BMP, CRP, SED #### [address] [address] Equine Pharmacology Technician: Campos Escobedo MD Immature granulocytes (Bld) [#/Vol] 1 % High 0 [facility] Comment on above: Performed By: #### C DP, TROPI, BMP, CRP, SED #### [place] [address] Equine Pharmacology Technician: Campos Escobedo MD Lymphocytes (Bld) [#/Vol] 1.70 10*3/uL Normal 1.10-3.70 [facility] Comment on above: Performed By: #### C DP, TROPI, BMP, CRP, SED #### [place] [address] Equine Pharmacology Technician: Campos Escobedo MD Lymphocytes/100 WBC (Bld) 18 % Low 24-43 [facility] Comment on above: Performed By: #### C DP, TROPI, BMP, CRP, SED #### [place] [address] Equine Pharmacology Technician: Campos Escobedo MD MCH (RBC) [Entitic mass] 30.3 pg Normal 25.2-33.5 [facility] Comment on above: Performed By: #### C DP, TROPI, BMP, CRP, SED #### [address] [address] Equine Pharmacology Technician: Campos Escobedo MD MCHC (RBC) [Mass/Vol] 31.3 g/dL Normal 28.4-34.8 [facility] Comment on above: Performed By: #### C DP, TROPI, BMP, CRP, SED #### [address] [address] Equine Pharmacology Technician: Campos Escobedo MD MCV (RBC) [Entitic vol] 96.9 fL Normal 82.6-102.9 [facility] Comment on above: Performed By: #### C DP, TROPI, BMP, CRP, SED #### [address] [address] Equine Pharmacology Technician: Campos Escobedo MD Monocytes (Bld) [#/Vol] 0.98 10*3/uL Normal 0.10-1.20 [facility] Comment on above: Performed By: #### C DP, TROPI, BMP, CRP, SED #### [address] [address] Equine Pharmacology Technician: Campos Escobedo MD Monocytes/100 WBC (Bld) 10 % Normal 3-12 [facility] Comment on above: Performed By: #### C DP, TROPI, BMP, CRP, SED #### [address] [address] Equine Pharmacology Technician: Campos Escobedo MD Neutrophil (Seg) 65 % Normal 36-65 [facility] Comment on above: Performed By: #### C DP, TROPI, BMP, CRP, SED #### [address] [address] Equine Pharmacology Technician: Campos Escobedo MD NRBC Automated 0.0 per 100 WBC Normal 0.0 [facility] Comment on above: Performed By: #### C DP, TROPI, BMP, CRP, SED #### [address] [address] Equine Pharmacology Technician: Campos Escobedo MD Platelet mean volume (Bld) [Entitic vol] 9.1 fL Normal 8.1-13.5 [facility] Comment on above: Performed By: #### C DP, TROPI, BMP, CRP, SED #### [address] [address] Equine Pharmacology Technician: Campos Escobedo MD Platelets (Bld) [#/Vol] 575 10*3/uL High 138-453 [facility] Comment on above: Performed By: #### C DP, TROPI, BMP, CRP, SED #### [address] [address] Equine Pharmacology Technician: Campos Escobedo MD RBC (Bld) [#/Vol] 3.50 10*6/uL Low 3.95-5.11 [facility] Comment on above: Performed By: #### C DP, TROPI, BMP, CRP, SED #### [address] [address] Equine Pharmacology Technician: Campos Escobedo MD WBC (Bld) [#/Vol] 9.6 10*3/uL Normal 3.5-11.3 [facility] Comment on above: Performed By: #### C DP, TROPI, BMP, CRP, SED #### [address] [address] Equine Pharmacology Technician: Campos Escobedo MD Auto Diff Performed NOT REPORTED Normal [facility] Comment on above: Performed By: #### C DP, TROPI, BMP, CRP, SED #### [address] [address] Equine Pharmacology Technician: Campos Escobedo MD Platelets (Bld) [#/Vol] NOT REPORTED Normal [facility] Comment on above: Performed By: #### C DP, TROPI, BMP, CRP, SED #### [address] [address] Equine Pharmacology Technician: Campos Escobedo MD RBC morphology finding Nom (Bld) NOT REPORTED Normal [facility] Comment on above: Performed By: #### C DP, TROPI, BMP, CRP, SED #### [facility] [address] [place] [address] Equine Pharmacology Technician: Campos Escobedo MD WBC Morphology NOT REPORTED Normal [facility] Comment on above: Performed By: #### C DP, TROPI, BMP, CRP, SED #### [facility] [address] [place] [address] Equine Pharmacology Technician: Campos Escobedo MD Calcium, Ionicon 08-17-2019 Calcium [Mass/Vol] 1.14 mmol/L Normal 1.13-1.33 [facility] Comment on above: Performed By: #### C DP, TROPI, BMP, CRP, SED #### [facility] [address] [place] [address] Equine Pharmacology Technician: Campos Escobedo MD Magnesiumon 08-17-2019 Magnesium [Mass/Vol] 2.0 mg/dL Normal 1.6-2.6 [facility] Comment on above: Performed By: #### C DP, TROPI, BMP, CRP, SED #### [facility] [address] [place] [address] Equine Pharmacology Technician: Campos Escobedo MD PTon 08-17-2019 INR Coag (PPP) [Relative time] 1.0 {INR} Normal [facility] Comment on above: Result Comment: Therapeutic Range: Moderate Anticoagulant Intensity: INR = 2.0-3.0 High Anticoagulant Intensity: INR = 2.5-3.5 Performed By: #### C DP, TROPI, BMP, CRP, SED #### [facility] [address] [place] [address] Equine Pharmacology Technician: Campos Escobedo MD PT Coag (PPP) [Time] 10.6 s Normal 9.0-12.0 [facility] Comment on above: Performed By: #### C DP, TROPI, BMP, CRP, SED #### [email or web address] [address] [place] [address] Equine Pharmacology Technician: Campos Escobedo MD Phosphorus, Inorg.on 019 Phosphorus, Inorg. 3.6 mg/dL Normal 2.6-4.5 [facility] Comment on above: Performed By: #### C DP, TROPI, BMP, CRP, SED #### [address] [id number] Equine Pharmacology Technician: Campos Escobedo MD XR CHEST (2 VW)on [...] Olamide Fontanez MD 08/17/19 Final result Normal [facility] APTTon 08-16-2019 aPTT Coag (Bld) [Time] 24.5 s Normal 20.5-30.5 [facility] Comment on above: Performed By: #### C DP, TROPI, BMP, CRP, SED #### [facility] [address] [place] [id number] Equine Pharmacology Technician: Campos Escobedo MD Basic Metabolic Profon 08-16 (cont.) Normal [facility] Comment on above: Result Comment: Aver age GFR for 60-69 years old: 85 mL/min/1.73sq m Chronic Kidney Disease: <60 mL/min/1.73sq m Kidney failure: <15 mL/min/1.73sq m eGFR calculated using average adult body mass. Additional eGFR calculator available at: http://www.[employer]/multiple_crcl_2012.htm Performed By: #### C DP, TROPI, BMP, CRP, SED #### [address] [address] Equine Pharmacology Technician: Campos Escobedo MD Anion gap [Moles/Vol] 14 mmol/L Normal 9-17 [facility] Comment on above: Performed By: #### C DP, TROPI, BMP, CRP, SED #### [address] [address] Equine Pharmacology Technician: Campos Escobedo MD Calcium [Mass/Vol] 8.6 mg/dL Normal 8.6-10.4 [facility] Comment on above: Performed By: #### C DP, TROPI, BMP, CRP, SED #### [address] [address] Equine Pharmacology Technician: Campos Escobedo MD Chloride [Moles/Vol] 102 mmol/L Normal 98-107 [facility] Comment on above: Performed By: #### C DP, TROPI, BMP, CRP, SED #### [address] [address] Equine Pharmacology Technician: Campos Escobedo MD CO2 [Moles/Vol] 21 mmol/L Normal 20-31 [facility] Comment on above: Performed By: #### C DP, TROPI, BMP, CRP, SED #### [address] [address] Equine Pharmacology Technician: Campos Escobedo MD Creatinine [Mass/Vol] 0.45 mg/dL Low 0.50-0.90 [facility] Comment on above: Performed By: #### C DP, TROPI, BMP, CRP, SED #### [address] [address] Equine Pharmacology Technician: Campos Escobedo MD GFR, Amer >60 Normal >60 [facility] Comment on above: Performed By: #### C DP, TROPI, BMP, CRP, SED #### [address] [address] Equine Pharmacology Technician: Campos Escobedo MD GFR,non Amer >60 Normal >60 [facility] Comment on above: Performed By: #### C DP, TROPI, BMP, CRP, SED #### [address] [address] Equine Pharmacology Technician: Campos Escobedo MD Glucose [Mass/Vol] 191 mg/dL High 70-99 [facility] Comment on above: Performed By: #### C DP, TROPI, BMP, CRP, SED #### [address] [address] Equine Pharmacology Technician: Campos Escobedo MD Potassium [Moles/Vol] 3.6 mmol/L Low 3.7-5.3 [facility] Comment on above: Performed By: #### C DP, TROPI, BMP, CRP, SED #### [address] [address] Equine Pharmacology Technician: Campos Escobedo MD Sodium [Moles/Vol] 137 mmol/L Normal 135-144 [facility] Comment on above: Performed By: #### C DP, TROPI, BMP, CRP, SED #### [address] [address] Equine Pharmacology Technician: Campos Escobedo MD Urea nitrogen [Mass/Vol] 8 mg/dL Normal 8-23 [facility] Comment on above: Performed By: #### C DP, TROPI, BMP, CRP, SED #### [facility] [address] [place] [address] Equine Pharmacology Technician: Campos Escobedo MD BUN/CRE Ratio NOT REPORTED Normal 9-20 [facility] Comment on above: Performed By: #### C DP, TROPI, BMP, CRP, SED #### [address] [address] Equine Pharmacology Technician: Campos Escobedo MD Staging: NOT REPORTED Normal [facility] Comment on above: Performed By: #### C DP, TROPI, BMP, CRP, SED #### [place] [address] Equine Pharmacology Technician: Campos Escobedo MD CBC with Diffon 08-16-2019 Abs. Basophil 0.08 k/uL Normal 0.00-0.20 [facility] Comment on above: Performed By: #### C DP, TROPI, BMP, CRP, SED #### [place] [address] Equine Pharmacology Technician: Campos Escobedo MD Abs.Imm.Granulocyte 0.09 k/uL Normal 0.00-0.30 [facility] Comment on above: Performed By: #### C DP, TROPI, BMP, CRP, SED #### [place] [address] Equine Pharmacology Technician: Campos Escobedo MD Abs.Neutrophil (Seg) 7.15 k/uL Normal 1.50-8.10 [facility] Comment on above: Performed By: #### C DP, TROPI, BMP, CRP, SED #### [place] [address] Equine Pharmacology Technician: Campos Escobedo MD Basophils/100 WBC (Bld) 1 % Normal 0-2 [facility] Comment on above: Performed By: #### C DP, TROPI, BMP, CRP, SED #### [place] [address] Equine Pharmacology Technician: Campos Escobedo MD Eosinophils (Bld) [#/Vol] 0.38 10*3/uL Normal 0.00-0.44 [facility] Comment on above: Performed By: #### C DP, TROPI, BMP, CRP, SED #### [address] [address] Equine Pharmacology Technician: Campos Escobedo MD Eosinophils/100 WBC (Bld) 4 % Normal 1-4 [facility] Comment on above: Performed By: #### C DP, TROPI, BMP, CRP, SED #### [place] [address] Equine Pharmacology Technician: Campos Escobedo MD Erythrocyte distribution width (RBC) [Ratio] 12.4 % Normal 11.8-14.4 [facility] Comment on above: Performed By: #### C DP, TROPI, BMP, CRP, SED #### [place] [address] Equine Pharmacology Technician: Campos Escobedo MD Hematocrit (Bld) [Volume fraction] 34.5 % Low 36.3-47.1 [facility] Comment on above: Performed By: #### C DP, TROPI, BMP, CRP, SED #### [place] [address] Equine Pharmacology Technician: Campos Escobedo MD Hemoglobin (Bld) [Mass/Vol] 10.8 g/dL Low 11.9-15.1 [facility] Comment on above: Performed By: #### C DP, TROPI, BMP, CRP, SED #### [place] [address] Equine Pharmacology Technician: Campos Escobedo MD Immature granulocytes (Bld) [#/Vol] 1 % High 0 [facility] Comment on above: Performed By: #### C DP, TROPI, BMP, CRP, SED #### [address] [address] Equine Pharmacology Technician: Campos Escobedo MD Lymphocytes (Bld) [#/Vol] 1.20 10*3/uL Normal 1.10-3.70 [facility] Comment on above: Performed By: #### C DP, TROPI, BMP, CRP, SED #### [place] [address] Equine Pharmacology Technician: Campos Escobedo MD Lymphocytes/100 WBC (Bld) 12 % Low 24-43 [facility] Comment on above: Performed By: #### C DP, TROPI, BMP, CRP, SED #### [place] [address] Equine Pharmacology Technician: Campos Escobedo MD MCH (RBC) [Entitic mass] 30.4 pg Normal 25.2-33.5 [facility] Comment on above: Performed By: #### C DP, TROPI, BMP, CRP, SED #### [place] [address] Equine Pharmacology Technician: Campos Escobedo MD MCHC (RBC) [Mass/Vol] 31.3 g/dL Normal 28.4-34.8 [facility] Comment on above: Performed By: #### C DP, TROPI, BMP, CRP, SED #### [place] [address] Equine Pharmacology Technician: Campos Escobedo MD MCV (RBC) [Entitic vol] 97.2 fL Normal 82.6-102.9 [facility] Comment on above: Performed By: #### C DP, TROPI, BMP, CRP, SED #### [place] [address] Equine Pharmacology Technician: Campos Escobedo MD Monocytes (Bld) [#/Vol] 0.77 10*3/uL Normal 0.10-1.20 [facility] Comment on above: Performed By: #### C DP, TROPI, BMP, CRP, SED #### [place] [address] Equine Pharmacology Technician: Campos Escobedo MD Monocytes/100 WBC (Bld) 8 % Normal 3-12 [facility] Comment on above: Performed By: #### C DP, TROPI, BMP, CRP, SED #### [address] [address] Equine Pharmacology Technician: Campos Escobedo MD Neutrophil (Seg) 74 % High 36-65 [facility] Comment on above: Performed By: #### C DP, TROPI, BMP, CRP, SED #### [facility] [address] [place] [address] Equine Pharmacology Technician: Campos Escobedo MD NRBC Automated 0.0 per 100 WBC Normal 0.0 [facility] Comment on above: Performed By: #### C DP, TROPI, BMP, CRP, SED #### [address] [address] Equine Pharmacology Technician: Campos Escobedo MD Platelet mean volume (Bld) [Entitic vol] 9.0 fL Normal 8.1-13.5 [facility] Comment on above: Performed By: #### C DP, TROPI, BMP, CRP, SED #### [address] [address] Equine Pharmacology Technician: Campos Escobedo MD Platelets (Bld) [#/Vol] 560 10*3/uL High 138-453 [facility] Comment on above: Performed By: #### C DP, TROPI, BMP, CRP, SED #### [address] [address] Equine Pharmacology Technician: Campos Escobedo MD RBC (Bld) [#/Vol] 3.55 10*6/uL Low 3.95-5.11 [facility] Comment on above: Performed By: #### C DP, TROPI, BMP, CRP, SED #### [address] [address] Equine Pharmacology Technician: Campos Escobedo MD WBC (Bld) [#/Vol] 9.7 10*3/uL Normal 3.5-11.3 [facility] Comment on above: Performed By: #### C DP, TROPI, BMP, CRP, SED #### [address] [address] Equine Pharmacology Technician: Campos Escobedo MD Auto Diff Performed NOT REPORTED Normal [facility] Comment on above: Performed By: #### C DP, TROPI, BMP, CRP, SED #### [address] [address] Equine Pharmacology Technician: Campos Escobedo MD Platelets (Bld) [#/Vol] NOT REPORTED Normal [facility] Comment on above: Performed By: #### C DP, TROPI, BMP, CRP, SED #### [address] [address] Equine Pharmacology Technician: Campos Escobedo MD RBC morphology finding Nom (Bld) NOT REPORTED Normal [facility] Comment on above: Performed By: #### C DP, TROPI, BMP, CRP, SED #### [address] [address] Equine Pharmacology Technician: Campos Escobedo MD WBC Morphology NOT REPORTED Normal [facility] Comment on above: Performed By: #### C DP, TROPI, BMP, CRP, SED #### [address] [address] Equine Pharmacology Technician: Campos Escobedo MD Calcium, Ionicon 08-16-2019 Calcium [Mass/Vol] 1.21 mmol/L Normal 1.13-1.33 [facility] Comment on above: Performed By: #### C DP, TROPI, BMP, CRP, SED #### [address] [address] Equine Pharmacology Technician: Campos Escobedo MD Magnesiumon 08-16-2019 Magnesium [Mass/Vol] 2.1 mg/dL Normal 1.6-2.6 [facility] Comment on above: Performed By: #### C DP, TROPI, BMP, CRP, SED #### [facility] [address] [place] [address] Equine Pharmacology Technician: Campos Escobedo MD Mycoplasma Ab, IgMon 019 Mycoplasma Ab, IgM 0.39 Normal <0.91 [facility] Comment on above: Result Comment: Reference Range: <=0.90 Negative 0.91-1.09 Equivocal >=1.10 Positive Performed By: #### C DP, TROPI, BMP, CRP, SED #### [facility] [address] [place] [address] Equine Pharmacology Technician: Campos Escobedo MD PTon 08-16-2019 INR Coag (PPP) [Relative time] 1.0 {INR} Normal [facility] Comment on above: Result Comment: Therapeutic Range: Moderate Anticoagulant Intensity: INR = 2.0-3.0 High Anticoagulant Intensity: INR = 2.5-3.5 Performed By: #### C DP, TROPI, BMP, CRP, SED #### [facility] [address] [place] [address] Equine Pharmacology Technician: Campos Escobedo MD PT Coag (PPP) [Time] 10.7 s Normal 9.0-12.0 [facility] Comment on above: Performed By: #### C DP, TROPI, BMP, CRP, SED #### [email or web address] [address] [place] [address] Equine Pharmacology Technician: Campos Escobedo MD Phosphorus, Inorg.on 019 Phosphorus, Inorg. 3.3 mg/dL Normal 2.6-4.5 [facility] Comment on above: Performed By: #### C DP, TROPI, BMP, CRP, SED #### [email or web address] [address] [place] [address] Equine Pharmacology Technician: Campos Escobedo MD Specimen Rejectionon 019 Reason for rejection Unable to perform testing: Specimen clotted. Normal [facility] Comment on above: Performed By: #### C DP, TROPI, BMP, CRP, SED #### [address] [address] Equine Pharmacology Technician: Campos Escobedo MD Source of sample .BLOOD Normal [facility] Comment on above: Performed By: #### C DP, TROPI, BMP, CRP, SED #### [facility] [address] [place] [address] Equine Pharmacology Technician: Campos Escobedo MD Test ordered PT, PTT [facility] Comment on above: Performed By: #### C DP, TROPI, BMP, CRP, SED #### [address] [address] Equine Pharmacology Technician: Campos Escobedo MD ----- NOT REPORTED Normal [facility] Comment on above: Performed By: #### C DP, TROPI, BMP, CRP, SED #### [address] [address] Equine Pharmacology Technician: Campos Escobedo MD APTTon 08-15-2019 aPTT Coag (Bld) [Time] 27.3 s Normal 20.5-30.5 [facility] Comment on above: Performed By: #### C DP, TROPI, BMP, CRP, SED #### [facility] [address] [place] [address] Equine Pharmacology Technician: Campos Escobedo MD Basic Metabolic Profon 08-15 (cont.) [facility] Comment on above: Result Comment: Aver age GFR for 60-69 years old: 85 mL/min/1.73sq m Chronic Kidney Disease: <60 mL/min/1.73sq m Kidney failure: <15 mL/min/1.73sq m eGFR calculated using average adult body mass. Additional eGFR calculator available at: http://www.[employer]TORIA/multiple_crcl_2012.htm Performed By: #### C DP, TROPI, BMP, CRP, SED #### [address] [address] Equine Pharmacology Technician: Campos Escobedo MD Anion gap [Moles/Vol] 11 mmol/L Normal 9-17 [facility] Comment on above: Performed By: #### C DP, TROPI, BMP, CRP, SED #### [address] [address] Equine Pharmacology Technician: Campos Escobedo MD Calcium [Mass/Vol] 8.1 mg/dL Low 8.6-10.4 [facility] Comment on above: Performed By: #### C DP, TROPI, BMP, CRP, SED #### [address] [address] Equine Pharmacology Technician: Campos Escobedo MD Chloride [Moles/Vol] 103 mmol/L Normal 98-107 [facility] Comment on above: Performed By: #### C DP, TROPI, BMP, CRP, SED #### [address] [address] Equine Pharmacology Technician: Campos Escobedo MD CO2 [Moles/Vol] 23 mmol/L Normal 20-31 [facility] Comment on above: Performed By: #### C DP, TROPI, BMP, CRP, SED #### [facility] [address] [place] [address] Equine Pharmacology Technician: Campos Escobedo MD Creatinine [Mass/Vol] 0.49 mg/dL Low 0.50-0.90 [facility] Comment on above: Performed By: #### C DP, TROPI, BMP, CRP, SED #### [facility] [address] [place] [address] Equine Pharmacology Technician: Campos Escobedo MD GFR, Amer >60 Normal >60 [facility] Comment on above: Performed By: #### C DP, TROPI, BMP, CRP, SED #### [address] [address] Equine Pharmacology Technician: Campos Escobedo MD GFR,non Amer >60 Normal >60 [facility] Comment on above: Performed By: #### C DP, TROPI, BMP, CRP, SED #### [address] [address] Equine Pharmacology Technician: Campos Escobedo MD Glucose [Mass/Vol] 183 mg/dL High 70-99 [facility] Comment on above: Performed By: #### C DP, TROPI, BMP, CRP, SED #### [address] [address] Equine Pharmacology Technician: Campos Escobedo MD Potassium [Moles/Vol] 3.6 mmol/L Low 3.7-5.3 [facility] Comment on above: Performed By: #### C DP, TROPI, BMP, CRP, SED #### [address] [address] Equine Pharmacology Technician: Campos Escobedo MD Sodium [Moles/Vol] 137 mmol/L Normal 135-144 [facility] Comment on above: Performed By: #### C DP, TROPI, BMP, CRP, SED #### [address] [address] Equine Pharmacology Technician: Campos Escobedo MD Urea nitrogen [Mass/Vol] 5 mg/dL Low 8-23 [facility] Comment on above: Performed By: #### C DP, TROPI, BMP, CRP, SED #### [facility] [address] [place] [address] Equine Pharmacology Technician: Campos Escobedo MD BUN/CRE Ratio NOT REPORTED Normal 9-20 [facility] Comment on above: Performed By: #### C DP, TROPI, BMP, CRP, SED #### [address] [address] Equine Pharmacology Technician: Campos Escobedo MD Staging: NOT REPORTED Normal [facility] Comment on above: Performed By: #### C DP, TROPI, BMP, CRP, SED #### [place] [address] Equine Pharmacology Technician: Campos Escobedo MD C-Reactive Proteinon 019 CRP [Mass/Vol] 169.1 mg/L High 0.0-5.0 [facility] Comment on above: Performed By: #### C DP, TROPI, BMP, CRP, SED #### [place] [address] Equine Pharmacology Technician: Campos Escobedo MD CBC with Diffon 08-15-2019 Abs. Basophil 0.06 k/uL Normal 0.00-0.20 [facility] Comment on above: Performed By: #### C DP, TROPI, BMP, CRP, SED #### [place] [address] Equine Pharmacology Technician: Campos Escobedo MD Abs.Imm.Granulocyte 0.10 k/uL Normal 0.00-0.30 [facility] Comment on above: Performed By: #### C DP, TROPI, BMP, CRP, SED #### [place] [address] Equine Pharmacology Technician: Campos Escobedo MD Abs.Neutrophil (Seg) 7.41 k/uL Normal 1.50-8.10 [facility] Comment on above: Performed By: #### C DP, TROPI, BMP, CRP, SED #### [address] [address] Equine Pharmacology Technician: Campos Escobedo MD Basophils/100 WBC (Bld) 1 % Normal 0-2 [facility] Comment on above: Performed By: #### C DP, TROPI, BMP, CRP, SED #### [address] [address] Equine Pharmacology Technician: Campos Escobedo MD Eosinophils (Bld) [#/Vol] 0.38 10*3/uL Normal 0.00-0.44 [facility] Comment on above: Performed By: #### C DP, TROPI, BMP, CRP, SED #### [address] [address] Equine Pharmacology Technician: Campos Escobedo MD Eosinophils/100 WBC (Bld) 4 % Normal 1-4 [facility] Comment on above: Performed By: #### C DP, TROPI, BMP, CRP, SED #### [place] [address] Equine Pharmacology Technician: Campos Escobedo MD Erythrocyte distribution width (RBC) [Ratio] 12.4 % Normal 11.8-14.4 [facility] Comment on above: Performed By: #### C DP, TROPI, BMP, CRP, SED #### [place] [address] Equine Pharmacology Technician: Campos Escobedo MD Hematocrit (Bld) [Volume fraction] 31.0 % Low 36.3-47.1 [facility] Comment on above: Performed By: #### C DP, TROPI, BMP, CRP, SED #### [place] [address] Equine Pharmacology Technician: Campos Escobedo MD Hemoglobin (Bld) [Mass/Vol] 9.9 g/dL Low 11.9-15.1 [facility] Comment on above: Performed By: #### C DP, TROPI, BMP, CRP, SED #### [address] [address] Equine Pharmacology Technician: Campos Escobedo MD Immature granulocytes (Bld) [#/Vol] 1 % High 0 [facility] Comment on above: Performed By: #### C DP, TROPI, BMP, CRP, SED #### [address] [address] Equine Pharmacology Technician: Campos Escobedo MD Lymphocytes (Bld) [#/Vol] 1.03 10*3/uL Low 1.10-3.70 [facility] Comment on above: Performed By: #### C DP, TROPI, BMP, CRP, SED #### [address] [address] Equine Pharmacology Technician: Campos Escobedo MD Lymphocytes/100 WBC (Bld) 11 % Low 24-43 [facility] Comment on above: Performed By: #### C DP, TROPI, BMP, CRP, SED #### [address] [address] Equine Pharmacology Technician: Campos Escobedo MD MCH (RBC) [Entitic mass] 30.9 pg Normal 25.2-33.5 [facility] Comment on above: Performed By: #### C DP, TROPI, BMP, CRP, SED #### [address] [address] Equine Pharmacology Technician: Campos Escobedo MD MCHC (RBC) [Mass/Vol] 31.9 g/dL Normal 28.4-34.8 [facility] Comment on above: Performed By: #### C DP, TROPI, BMP, CRP, SED #### [address] [address] Equine Pharmacology Technician: Campos Escobedo MD MCV (RBC) [Entitic vol] 96.9 fL Normal 82.6-102.9 [facility] Comment on above: Performed By: #### C DP, TROPI, BMP, CRP, SED #### [facility] [address] [place] [address] Equine Pharmacology Technician: Campos Escobedo MD Monocytes (Bld) [#/Vol] 0.72 10*3/uL Normal 0.10-1.20 [facility] Comment on above: Performed By: #### C DP, TROPI, BMP, CRP, SED #### [address] [address] Equine Pharmacology Technician: Campos Escobedo MD Monocytes/100 WBC (Bld) 7 % Normal 3-12 [facility] Comment on above: Performed By: #### C DP, TROPI, BMP, CRP, SED #### [place] [address] Equine Pharmacology Technician: Campos Escobedo MD Neutrophil (Seg) 76 % High 36-65 [facility] Comment on above: Performed By: #### C DP, TROPI, BMP, CRP, SED #### [place] [address] Equine Pharmacology Technician: Campos Escobedo MD NRBC Automated 0.0 per 100 WBC Normal 0.0 [facility] Comment on above: Performed By: #### C DP, TROPI, BMP, CRP, SED #### [place] [address] Equine Pharmacology Technician: Campos Escobedo MD Platelet mean volume (Bld) [Entitic vol] 8.8 fL Normal 8.1-13.5 [facility] Comment on above: Performed By: #### C DP, TROPI, BMP, CRP, SED #### [place] [address] Equine Pharmacology Technician: Campos Escobedo MD Platelets (Bld) [#/Vol] 486 10*3/uL High 138-453 [facility] Comment on above: Performed By: #### C DP, TROPI, BMP, CRP, SED #### [place] [address] Equine Pharmacology Technician: Campos Escobedo MD RBC (Bld) [#/Vol] 3.20 10*6/uL Low 3.95-5.11 [facility] Comment on above: Performed By: #### C DP, TROPI, BMP, CRP, SED #### [address] [address] Equine Pharmacology Technician: Campos Escobedo MD WBC (Bld) [#/Vol] 9.7 10*3/uL Normal 3.5-11.3 [facility] Comment on above: Performed By: #### C DP, TROPI, BMP, CRP, SED #### [address] [address] Equine Pharmacology Technician: Campos Escobedo MD Auto Diff Performed NOT REPORTED Normal [facility] Comment on above: Performed By: #### C DP, TROPI, BMP, CRP, SED #### [address] [address] Equine Pharmacology Technician: Campos Escobedo MD Platelets (Bld) [#/Vol] NOT REPORTED Normal [facility] Comment on above: Performed By: #### C DP, TROPI, BMP, CRP, SED #### [address] [address] Equine Pharmacology Technician: Campos Escobedo MD RBC morphology finding Nom (Bld) NOT REPORTED Normal [facility] Comment on above: Performed By: #### C DP, TROPI, BMP, CRP, SED #### [address] [address] Equine Pharmacology Technician: Campos Escobedo MD WBC Morphology NOT REPORTED Normal [facility] Comment on above: Performed By: #### C DP, TROPI, BMP, CRP, SED #### [address] [address] Equine Pharmacology Technician: Campos Escobedo MD Calcium, Ionicon 08-15-2019 Calcium [Mass/Vol] 1.06 mmol/L Low 1.13-1.33 [facility] Comment on above: Performed By: #### C DP, TROPI, BMP, CRP, SED #### [facility] [address] [place] [address] Equine Pharmacology Technician: Campos Escobedo MD Magnesiumon 08-15-2019 Magnesium [Mass/Vol] 1.9 mg/dL Normal 1.6-2.6 [facility] Comment on above: Performed By: #### C DP, TROPI, BMP, CRP, SED #### [facility] [address] [place] [address] Equine Pharmacology Technician: Campos Escobedo MD PTon 08-15-2019 INR Coag (PPP) [Relative time] 1.0 {INR} Normal [facility] Comment on above: Result Comment: Therapeutic Range: Moderate Anticoagulant Intensity: INR = 2.0-3.0 High Anticoagulant Intensity: INR = 2.5-3.5 Performed By: #### C DP, TROPI, BMP, CRP, SED #### [facility] [address] [place] [address] Equine Pharmacology Technician: Campos Escobedo MD PT Coag (PPP) [Time] 10.7 s Normal 9.0-12.0 [facility] Comment on above: Performed By: #### C DP, TROPI, BMP, CRP, SED #### [facility] [address] [place] [address] Equine Pharmacology Technician: Campos Escobedo MD Phosphorus, Inorg.on 019 Phosphorus, Inorg. 2.9 mg/dL Normal 2.6-4.5 [facility] Comment on above: Performed By: #### C DP, TROPI, BMP, CRP, SED #### [facility] [address] [place] [address] Equine Pharmacology Technician: Campos Escobedo MD APTTon 08-14-2019 aPTT Coag (Bld) [Time] 26.3 s Normal 20.5-30.5 [facility] Comment on above: Performed By: #### C DP, TROPI, BMP, CRP, SED #### [facility] [address] [place] [address] Equine Pharmacology Technician: Campos Escobedo MD Basic Metabolic Profon 08-14 (cont.) Normal [facility] Comment on above: Result Comment: Aver age GFR for 60-69 years old: 85 mL/min/1.73sq m Chronic Kidney Disease: <60 mL/min/1.73sq m Kidney failure: <15 mL/min/1.73sq m eGFR calculated using average adult body mass. Additional eGFR calculator available at: http://www.[employer]/multiple_crcl_2012.htm Performed By: #### C DP, TROPI, BMP, CRP, SED #### [facility] [address] [place] [address] Equine Pharmacology Technician: Campos Escobedo MD Anion gap [Moles/Vol] 13 mmol/L Normal 9-17 [facility] Comment on above: Performed By: #### C DP, TROPI, BMP, CRP, SED #### [facility] [address] [place] [address] Equine Pharmacology Technician: Campos Escobedo MD Calcium [Mass/Vol] 8.1 mg/dL Low 8.6-10.4 [facility] Comment on above: Performed By: #### C DP, TROPI, BMP, CRP, SED #### [facility] [address] [place] [address] Equine Pharmacology Technician: Campos Escobedo MD Chloride [Moles/Vol] 101 mmol/L Normal 98-107 [facility] Comment on above: Performed By: #### C DP, TROPI, BMP, CRP, SED #### [facility] [address] [place] [address] Equine Pharmacology Technician: Camops Escobedo MD CO2 [Moles/Vol] 23 mmol/L Normal 20-31 [facility] Comment on above: Performed By: #### C DP, TROPI, BMP, CRP, SED #### [facility] [address] [place] [address] Equine Pharmacology Technician: Campos Escobedo MD Creatinine [Mass/Vol] 0.56 mg/dL Normal 0.50-0.90 [facility] Comment on above: Performed By: #### C DP, TROPI, BMP, CRP, SED #### [address] [address] Equine Pharmacology Technician: Campos Escobedo MD GFR, Amer >60 Normal >60 [facility] Comment on above: Performed By: #### C DP, TROPI, BMP, CRP, SED #### [facility] [address] [place] [address] Equine Pharmacology Technician: Campso Escobedo MD GFR,non Amer >60 Normal >60 [facility] Comment on above: Performed By: #### C DP, TROPI, BMP, CRP, SED #### [facility] [address] [place] [address] Equine Pharmacology Technician: Campos Escobedo MD Glucose [Mass/Vol] 164 mg/dL High 70-99 [facility] Comment on above: Performed By: #### C DP, TROPI, BMP, CRP, SED #### [facility] [address] [place] [address] Equine Pharmacology Technician: Campos Escobedo MD Potassium [Moles/Vol] 3.8 mmol/L Normal 3.7-5.3 [facility] Comment on above: Performed By: #### C DP, TROPI, BMP, CRP, SED #### [facility] [address] [place] [address] Equine Pharmacology Technician: Campos Escobedo MD Sodium [Moles/Vol] 137 mmol/L Normal 135-144 [facility] Comment on above: Performed By: #### C DP, TROPI, BMP, CRP, SED #### [address] [address] Equine Pharmacology Technician: Campos Escobedo MD Urea nitrogen [Mass/Vol] 7 mg/dL Low 06-07 [facility] Comment on above: Performed By: #### C DP, TROPI, BMP, CRP, SED #### [facility] [address] [place] [address] Equine Pharmacology Technician: Campos Escobedo MD BUN/CRE Ratio NOT REPORTED Normal 07-05 [facility] Comment on above: Performed By: #### C DP, TROPI, BMP, CRP, SED #### [address] [address] Equine Pharmacology Technician: Campos Escobedo MD Staging: NOT REPORTED Normal [facility] Comment on above: Performed By: #### C DP, TROPI, BMP, CRP, SED #### [facility] [address] [place] [address] Equine Pharmacology Technician: Campos Escobedo MD CBC with Diffon 08-14-2019 Abs. Basophil 0.05 k/uL Normal 0.00-0.20 [facility] Comment on above: Performed By: #### C DP, TROPI, BMP, CRP, SED #### [facility] [address] [place] [address] Equine Pharmacology Technician: Campos Escobedo MD Abs.Imm.Granulocyte 0.11 k/uL Normal 0.00-0.30 [facility] Comment on above: Performed By: #### C DP, TROPI, BMP, CRP, SED #### [facility] [address] [place] [address] Equine Pharmacology Technician: Campos Escobedo MD Abs.Neutrophil (Seg) 6.99 k/uL Normal 1.50-8.10 [facility] Comment on above: Performed By: #### C DP, TROPI, BMP, CRP, SED #### [address] [address] Equine Pharmacology Technician: Campos Escobedo MD Basophils/100 WBC (Bld) 1 % Normal 0-2 [facility] Comment on above: Performed By: #### C DP, TROPI, BMP, CRP, SED #### [place] [address] Equine Pharmacology Technician: Campos Escobedo MD Eosinophils (Bld) [#/Vol] 0.38 10*3/uL Normal 0.00-0.44 [facility] Comment on above: Performed By: #### C DP, TROPI, BMP, CRP, SED #### [place] [address] Equine Pharmacology Technician: Campos Escobedo MD Eosinophils/100 WBC (Bld) 4 % Normal 1-4 [facility] Comment on above: Performed By: #### C DP, TROPI, BMP, CRP, SED #### [place] [address] Equine Pharmacology Technician: Campos Escobedo MD Erythrocyte distribution width (RBC) [Ratio] 12.6 % Normal 11.8-14.4 [facility] Comment on above: Performed By: #### C DP, TROPI, BMP, CRP, SED #### [place] [address] Equine Pharmacology Technician: Campos Escobedo MD Hematocrit (Bld) [Volume fraction] 31.7 % Low 36.3-47.1 [facility] Comment on above: Performed By: #### C DP, TROPI, BMP, CRP, SED #### [place] [address] Equine Pharmacology Technician: Campos Escobedo MD Hemoglobin (Bld) [Mass/Vol] 9.9 g/dL Low 11.9-15.1 [facility] Comment on above: Performed By: #### C DP, TROPI, BMP, CRP, SED #### [address] [address] Equine Pharmacology Technician: Campos Escobedo MD Immature granulocytes (Bld) [#/Vol] 1 % High 0 [facility] Comment on above: Performed By: #### C DP, TROPI, BMP, CRP, SED #### [address] [address] Equine Pharmacology Technician: Campos Escobedo MD Lymphocytes (Bld) [#/Vol] 1.19 10*3/uL Normal 1.10-3.70 [facility] Comment on above: Performed By: #### C DP, TROPI, BMP, CRP, SED #### [address] [address] Equine Pharmacology Technician: Campos Escobedo MD Lymphocytes/100 WBC (Bld) 13 % Low 24-43 [facility] Comment on above: Performed By: #### C DP, TROPI, BMP, CRP, SED #### [address] [address] Equine Pharmacology Technician: Campos Escobedo MD MCH (RBC) [Entitic mass] 30.3 pg Normal 25.2-33.5 [facility] Comment on above: Performed By: #### C DP, TROPI, BMP, CRP, SED #### [address] [address] Equine Pharmacology Technician: Campos Escobedo MD MCHC (RBC) [Mass/Vol] 31.2 g/dL Normal 28.4-34.8 [facility] Comment on above: Performed By: #### C DP, TROPI, BMP, CRP, SED #### [facility] [address] [place] [address] Equine Pharmacology Technician: Campos Escobedo MD MCV (RBC) [Entitic vol] 96.9 fL Normal 82.6-102.9 [facility] Comment on above: Performed By: #### C DP, TROPI, BMP, CRP, SED #### [address] [address] Equine Pharmacology Technician: Campos Escobedo MD Monocytes (Bld) [#/Vol] 0.79 10*3/uL Normal 0.10-1.20 [facility] Comment on above: Performed By: #### C DP, TROPI, BMP, CRP, SED #### [place] [address] Equine Pharmacology Technician: Campos Escobedo MD Monocytes/100 WBC (Bld) 8 % Normal 3-12 [facility] Comment on above: Performed By: #### C DP, TROPI, BMP, CRP, SED #### [place] [address] Equine Pharmacology Technician: Campos Escobedo MD Neutrophil (Seg) 73 % High 36-65 [facility] Comment on above: Performed By: #### C DP, TROPI, BMP, CRP, SED #### [place] [address] Equine Pharmacology Technician: Campos Escobedo MD NRBC Automated 0.0 per 100 WBC Normal 0.0 [facility] Comment on above: Performed By: #### C DP, TROPI, BMP, CRP, SED #### [address] [address] Equine Pharmacology Technician: Campos Escobedo MD Platelet mean volume (Bld) [Entitic vol] 8.8 fL Normal 8.1-13.5 [facility] Comment on above: Performed By: #### C DP, TROPI, BMP, CRP, SED #### [address] [place] [address] Equine Pharmacology Technician: Campos Escobedo MD Platelets (Bld) [#/Vol] 493 10*3/uL High 138-453 [facility] Comment on above: Performed By: #### C DP, TROPI, BMP, CRP, SED #### [address] [address] Equine Pharmacology Technician: Campos Escobedo MD RBC (Bld) [#/Vol] 3.27 10*6/uL Low 3.95-5.11 [facility] Comment on above: Performed By: #### C DP, TROPI, BMP, CRP, SED #### [address] [address] Equine Pharmacology Technician: Campos Escobedo MD WBC (Bld) [#/Vol] 9.5 10*3/uL Normal 3.5-11.3 [facility] Comment on above: Performed By: #### C DP, TROPI, BMP, CRP, SED #### [address] [address] Equine Pharmacology Technician: Campos Escobedo MD Auto Diff Performed NOT REPORTED Normal [facility] Comment on above: Performed By: #### C DP, TROPI, BMP, CRP, SED #### [address] [address] Equine Pharmacology Technician: Campos Escobedo MD Platelets (Bld) [#/Vol] NOT REPORTED Normal [facility] Comment on above: Performed By: #### C DP, TROPI, BMP, CRP, SED #### [address] [address] Equine Pharmacology Technician: Campos Escobedo MD RBC morphology finding Nom (Bld) NOT REPORTED Normal [facility] Comment on above: Performed By: #### C DP, TROPI, BMP, CRP, SED #### [address] [address] Equine Pharmacology Technician: Campos Escobedo MD WBC Morphology NOT REPORTED Normal [facility] Comment on above: Performed By: #### C DP, TROPI, BMP, CRP, SED #### [facility] [address] [place] [address] Equine Pharmacology Technician: Campos Escobedo MD Calcium, Ionicon 08-14-2019 Calcium [Mass/Vol] 1.09 mmol/L Low 1.13-1.33 [facility] Comment on above: Performed By: #### C DP, TROPI, BMP, CRP, SED #### [facility] [address] [place] [address] Equine Pharmacology Technician: Campos Escobedo MD Magnesiumon 08-14-2019 Magnesium [Mass/Vol] 1.8 mg/dL Normal 1.6-2.6 [facility] Comment on above: Performed By: #### C DP, TROPI, BMP, CRP, SED #### [facility] [address] [place] [address] Equine Pharmacology Technician: Campos Escobedo MD Mycoplasma Ab, IgMon 019 Mycoplasma Ab, IgM 0.40 Normal <0.91 [facility] Comment on above: Result Comment: Reference Range: <=0.90 Negative 0.91-1.09 Equivocal >=1.10 Positive Performed By: #### C DP, TROPI, BMP, CRP, SED #### [facility] [address] [place] [address] Equine Pharmacology Technician: Campos Escobedo MD PTon 08-14-2019 INR Coag (PPP) [Relative time] 1.0 {INR} Normal [facility] Comment on above: Result Comment: Therapeutic Range: Moderate Anticoagulant Intensity: INR = 2.0-3.0 High Anticoagulant Intensity: INR = 2.5-3.5 Performed By: #### C DP, TROPI, BMP, CRP, SED #### [facility] [address] [place] [phone] Equine Pharmacology Technician: Campos Escobedo MD PT Coag (PPP) [Time] 10.7 s Normal 9.0-12.0 [facility] Comment on above: Performed By: #### C DP, TROPI, BMP, CRP, SED #### [address] [id number] Equine Pharmacology Technician: Campos Escobedo MD Phosphorus, Inorg.on 019 Phosphorus, Inorg. 3.1 mg/dL Normal 2.6-4.5 [facility] Comment on above: Performed By: #### C DP, TROPI, BMP, CRP, SED #### [address] [phone] Equine Pharmacology Technician: Campos Escobedo MD APTTon 08-13-2019 aPTT Coag (Bld) [Time] 26.0 s Normal 20.5-30.5 [facility] Comment on above: Performed By: #### C DP, IOCAL, PT, PTT, BMP, MG, MAIKEL, TSHX #### [address] [id number] Equine Pharmacology Technician: Campos Escobedo MD Basic Metabolic Profon 08-13 (cont.) Normal [facility] Comment on above: Result Comment: Aver age GFR for 60-69 years old: 85 mL/min/1.73sq m Chronic Kidney Disease: <60 mL/min/1.73sq m Kidney failure: <15 mL/min/1.73sq m eGFR calculated using average adult body mass. Additional eGFR calculator available at: http://www.[employer].com/multiple_crcl_2012.htm Performed By: #### C DP, IOCAL, PT, PTT, BMP, MG, MAIKEL, TSHX #### [address] [address] [place], [place] [id number] Equine Pharmacology Technician: Campos Escobedo MD Anion gap [Moles/Vol] 14 mmol/L Normal - [facility] Comment on above: Performed By: #### C DP, IOCAL, PT, PTT, BMP, MG, MAIKEL, TSHX #### [address] [address] Equine Pharmacology Technician: Campos Escobedo MD Calcium [Mass/Vol] 8.3 mg/dL Low 8.6-10.4 [facility] Comment on above: Performed By: #### C DP, IOCAL, PT, PTT, BMP, MG, MAIKEL, TSHX #### [address] [address] Equine Pharmacology Technician: Campos Escobedo MD Chloride [Moles/Vol] 97 mmol/L Low 98-107 [facility] Comment on above: Performed By: #### C DP, IOCAL, PT, PTT, BMP, MG, MAIKEL, TSHX #### [address] [address] Equine Pharmacology Technician: Campos Escobedo MD CO2 [Moles/Vol] 23 mmol/L Normal 20-31 [facility] Comment on above: Performed By: #### C DP, IOCAL, PT, PTT, BMP, MG, MAIKEL, TSHX #### [facility] [address] [place] [address] Equine Pharmacology Technician: Campos Escobedo MD Creatinine [Mass/Vol] 0.51 mg/dL Normal 0.50-0.90 [facility] Comment on above: Performed By: #### C DP, IOCAL, PT, PTT, BMP, MG, MAIKEL, TSHX #### [address] [address] Equine Pharmacology Technician: Campos Escobedo MD GFR, Amer >60 Normal >60 [facility] Comment on above: Performed By: #### C DP, IOCAL, PT, PTT, BMP, MG, MAIKEL, TSHX #### [facility] [address] [place] [address] Equine Pharmacology Technician: Campos Escobedo MD GFR,non Amer >60 Normal >60 [facility] Comment on above: Performed By: #### C DP, IOCAL, PT, PTT, BMP, MG, MAIKEL, TSHX #### [address] [address] Equine Pharmacology Technician: Campos Escobedo MD Glucose [Mass/Vol] 192 mg/dL High 70-99 [facility] Comment on above: Performed By: #### C DP, IOCAL, PT, PTT, BMP, MG, MAIKEL, TSHX #### [address] [address] Equine Pharmacology Technician: Campos Escobedo MD Potassium [Moles/Vol] 3.3 mmol/L Low 3.7-5.3 [facility] Comment on above: Performed By: #### C DP, IOCAL, PT, PTT, BMP, MG, MAIKEL, TSHX #### [address] [address] Equine Pharmacology Technician: Campos Escobedo MD Sodium [Moles/Vol] 134 mmol/L Low 135-144 [facility] Comment on above: Performed By: #### C DP, IOCAL, PT, PTT, BMP, MG, MAIKEL, TSHX #### [address] [address] Equine Pharmacology Technician: Campos Escobedo MD Urea nitrogen [Mass/Vol] 8 mg/dL Normal 8-23 [facility] Comment on above: Performed By: #### C DP, IOCAL, PT, PTT, BMP, MG, MAIKEL, TSHX #### [address] [address] Equine Pharmacology Technician: Campos Escobedo MD BUN/CRE Ratio NOT REPORTED Normal 9-20 [facility] Comment on above: Performed By: #### C DP, IOCAL, PT, PTT, BMP, MG, MAIKEL, TSHX #### [address] [address] Equine Pharmacology Technician: Campos Ecsobedo MD Staging: NOT REPORTED Normal [facility] Comment on above: Performed By: #### C DP, IOCAL, PT, PTT, BMP, MG, MAIKEL, TSHX #### [address] [address] Equine Pharmacology Technician: Campos Escobedo MD Anion gap [Moles/Vol] 15 mmol/L Normal 9-17 [facility] Comment on above: Performed By: #### C DP, TROPI, BMP, CRP, SED #### [address] [address] Equine Pharmacology Technician: Campos Escobedo MD Calcium [Mass/Vol] 8.4 mg/dL Low 8.6-10.4 [facility] Comment on above: Performed By: #### C DP, TROPI, BMP, CRP, SED #### [address] [address] Equine Pharmacology Technician: Campos Escobedo MD Chloride [Moles/Vol] 98 mmol/L Normal 98-107 [facility] Comment on above: Performed By: #### C DP, TROPI, BMP, CRP, SED #### [address] [address] Equine Pharmacology Technician: Campos Escobedo MD CO2 [Moles/Vol] 24 mmol/L Normal 20-31 [facility] Comment on above: Performed By: #### C DP, TROPI, BMP, CRP, SED #### [address] [address] Equine Pharmacology Technician: Campos Escobedo MD Creatinine [Mass/Vol] 0.53 mg/dL Normal 0.50-0.90 [facility] Comment on above: Performed By: #### C DP, TROPI, BMP, CRP, SED #### [address] [address] Equine Pharmacology Technician: Campos Escobedo MD GFR, Amer >60 Normal >60 [facility] Comment on above: Performed By: #### C DP, TROPI, BMP, CRP, SED #### [address] [address] Equine Pharmacology Technician: Campos Escobedo MD GFR,non Amer >60 Normal >60 [facility] Comment on above: Performed By: #### C DP, TROPI, BMP, CRP, SED #### [address] [address] Equine Pharmacology Technician: Campos Escobedo MD Glucose [Mass/Vol] 169 mg/dL High 70-99 [facility] Comment on above: Performed By: #### C DP, TROPI, BMP, CRP, SED #### [address] [address] Equine Pharmacology Technician: Campos Escobedo MD Potassium [Moles/Vol] 3.3 mmol/L Low 3.7-5.3 [facility] Comment on above: Performed By: #### C DP, TROPI, BMP, CRP, SED #### [address] [address] Equine Pharmacology Technician: Campos Escobedo MD Sodium [Moles/Vol] 137 mmol/L Normal 135-144 [facility] Comment on above: Performed By: #### C DP, TROPI, BMP, CRP, SED #### [facility] [address] [place] [address] Equine Pharmacology Technician: Campos Escobedo MD Urea nitrogen [Mass/Vol] 8 mg/dL Normal 8-23 [facility] Comment on above: Performed By: #### C DP, TROPI, BMP, CRP, SED #### [facility] [address] [place] [address] Equine Pharmacology Technician: Campos Escobedo MD (cont.) Normal [facility] Comment on above: Result Comment: Aver age GFR for 60-69 years old: 85 mL/min/1.73sq m Chronic Kidney Disease: <60 mL/min/1.73sq m Kidney failure: <15 mL/min/1.73sq m eGFR calculated using average adult body mass. Additional eGFR calculator available at: http://www.[employer]/multiple_crcl_2012.htm Performed By: #### C DP, TROPI, BMP, CRP, SED #### [address] [address] Equine Pharmacology Technician: Campos Escobedo MD BUN/CRE Ratio NOT REPORTED Normal 07-05 [facility] Comment on above: Performed By: #### C DP, TROPI, BMP, CRP, SED #### [facility] [address] [place] [address] Equine Pharmacology Technician: Campos Escobedo MD Staging: NOT REPORTED Normal [facility] Comment on above: Performed By: #### C DP, TROPI, BMP, CRP, SED #### [facility] [address] [place] [address] Equine Pharmacology Technician: Campos Escobedo MD C-Reactive Proteinon 019 CRP [Mass/Vol] 169.2 mg/L High 0.0-5.0 [facility] Comment on above: Performed By: #### C DP, TROPI, BMP, CRP, SED #### [facility] [address] [place], [place] [phone] Equine Pharmacology Technician: Campos Escobedo MD CBC with Diffon 08-13-2019 Abs. Basophil 0.06 k/uL Normal 0.00-0.20 [facility] Comment on above: Performed By: #### C DP, IOCAL, PT, PTT, BMP, MG, MAIKEL, TSHX #### [facility] [address] [place] [address] Equine Pharmacology Technician: Campos Escobedo MD Abs.Imm.Granulocyte 0.08 k/uL Normal 0.00-0.30 [facility] Comment on above: Performed By: #### C DP, IOCAL, PT, PTT, BMP, MG, MAIKEL, TSHX #### [place] [address] Equine Pharmacology Technician: Campos Escobedo MD Abs.Neutrophil (Seg) 7.45 k/uL Normal 1.50-8.10 [facility] Comment on above: Performed By: #### C DP, IOCAL, PT, PTT, BMP, MG, MAIKEL, TSHX #### [place] [address] Equine Pharmacology Technician: Campos Escobedo MD Basophils/100 WBC (Bld) 1 % Normal 0-2 [facility] Comment on above: Performed By: #### C DP, IOCAL, PT, PTT, BMP, MG, MAIKEL, TSHX #### [place] [address] Equine Pharmacology Technician: Campos Escobedo MD Eosinophils (Bld) [#/Vol] 0.35 10*3/uL Normal 0.00-0.44 [facility] Comment on above: Performed By: #### C DP, IOCAL, PT, PTT, BMP, MG, MAIKEL, TSHX #### [place] [address] Equine Pharmacology Technician: Campos Escobedo MD Eosinophils/100 WBC (Bld) 4 % Normal 1-4 [facility] Comment on above: Performed By: #### C DP, IOCAL, PT, PTT, BMP, MG, MAIKEL, TSHX #### [address] [address] Equine Pharmacology Technician: Campos Escobedo MD Erythrocyte distribution width (RBC) [Ratio] 12.4 % Normal 11.8-14.4 [facility] Comment on above: Performed By: #### C DP, IOCAL, PT, PTT, BMP, MG, MAIKEL, TSHX #### [facility] [address] [place] [address] Equine Pharmacology Technician: Campos Escobedo MD Hematocrit (Bld) [Volume fraction] 33.5 % Low 36.3-47.1 [facility] Comment on above: Performed By: #### C DP, IOCAL, PT, PTT, BMP, MG, MAIKEL, TSHX #### [facility] [address] [place] [address] Equine Pharmacology Technician: Campos Escobedo MD Hemoglobin (Bld) [Mass/Vol] 10.6 g/dL Low 11.9-15.1 [facility] Comment on above: Performed By: #### C DP, IOCAL, PT, PTT, BMP, MG, MAIKEL, TSHX #### [facility] [address] [place] [address] Equine Pharmacology Technician: Campos Escobedo MD Immature granulocytes (Bld) [#/Vol] 1 % High 0 [facility] Comment on above: Performed By: #### C DP, IOCAL, PT, PTT, BMP, MG, MAIKEL, TSHX #### [place] [address] Equine Pharmacology Technician: Campos Escobedo MD Lymphocytes (Bld) [#/Vol] 1.20 10*3/uL Normal 1.10-3.70 [facility] Comment on above: Performed By: #### C DP, IOCAL, PT, PTT, BMP, MG, MAIKEL, TSHX #### [facility] [address] [place] [address] Equine Pharmacology Technician: Campos Escobedo MD Lymphocytes/100 WBC (Bld) 12 % Low 24-43 [facility] Comment on above: Performed By: #### C DP, IOCAL, PT, PTT, BMP, MG, MAIKEL, TSHX #### [address] [address] Equine Pharmacology Technician: Campos Escobedo MD MCH (RBC) [Entitic mass] 30.1 pg Normal 25.2-33.5 [facility] Comment on above: Performed By: #### C DP, IOCAL, PT, PTT, BMP, MG, MAIKEL, TSHX #### [address] [address] Equine Pharmacology Technician: Campos Escobedo MD MCHC (RBC) [Mass/Vol] 31.6 g/dL Normal 28.4-34.8 [facility] Comment on above: Performed By: #### C DP, IOCAL, PT, PTT, BMP, MG, MAIKEL, TSHX #### [address] [address] Equine Pharmacology Technician: Campos Escobedo MD MCV (RBC) [Entitic vol] 95.2 fL Normal 82.6-102.9 [facility] Comment on above: Performed By: #### C DP, IOCAL, PT, PTT, BMP, MG, MAIKEL, TSHX #### [address] [address] Equine Pharmacology Technician: Campos Escobedo MD Monocytes (Bld) [#/Vol] 0.83 10*3/uL Normal 0.10-1.20 [facility] Comment on above: Performed By: #### C DP, IOCAL, PT, PTT, BMP, MG, MAIKEL, TSHX #### [address] [address] Equine Pharmacology Technician: Campos Escobedo MD Monocytes/100 WBC (Bld) 8 % Normal 3-12 [facility] Comment on above: Performed By: #### C DP, IOCAL, PT, PTT, BMP, MG, MAIKEL, TSHX #### [address] [address] Equine Pharmacology Technician: Campos Escobedo MD Neutrophil (Seg) 74 % High 36-65 [facility] Comment on above: Performed By: #### C DP, IOCAL, PT, PTT, BMP, MG, MAIKEL, TSHX #### [address] [address] Equine Pharmacology Technician: Campos Escobedo MD NRBC Automated 0.0 per 100 WBC Normal 0.0 [facility] Comment on above: Performed By: #### C DP, IOCAL, PT, PTT, BMP, MG, MAIKEL, TSHX #### [address] [address] Equine Pharmacology Technician: Campos Escobedo MD Platelet mean volume (Bld) [Entitic vol] 9.1 fL Normal 8.1-13.5 [facility] Comment on above: Performed By: #### C DP, IOCAL, PT, PTT, BMP, MG, MAIKEL, TSHX #### [address] [address] Equine Pharmacology Technician: Campos Escobedo MD Platelets (Bld) [#/Vol] 487 10*3/uL High 138-453 [facility] Comment on above: Performed By: #### C DP, IOCAL, PT, PTT, BMP, MG, MAIKEL, TSHX #### [address] [address] Equine Pharmacology Technician: Campos Escobedo MD RBC (Bld) [#/Vol] 3.52 10*6/uL Low 3.95-5.11 [facility] Comment on above: Performed By: #### C DP, IOCAL, PT, PTT, BMP, MG, MAIKEL, TSHX #### [address] [address] Equine Pharmacology Technician: Campos Escobedo MD WBC (Bld) [#/Vol] 10.0 10*3/uL Normal 3.5-11.3 [facility] Comment on above: Performed By: #### C DP, IOCAL, PT, PTT, BMP, MG, MAIKEL, TSHX #### [place] [address] Equine Pharmacology Technician: Campos Escobedo MD Auto Diff Performed NOT REPORTED Normal [facility] Comment on above: Performed By: #### C DP, IOCAL, PT, PTT, BMP, MG, MAIKEL, TSHX #### [place] [address] Equine Pharmacology Technician: Campos Escobedo MD Platelets (Bld) [#/Vol] NOT REPORTED Normal [facility] Comment on above: Performed By: #### C DP, IOCAL, PT, PTT, BMP, MG, MAIKEL, TSHX #### [place] [address] Equine Pharmacology Technician: Campos Escobedo MD RBC morphology finding Nom (Bld) NOT REPORTED Normal [facility] Comment on above: Performed By: #### C DP, IOCAL, PT, PTT, BMP, MG, MAIKEL, TSHX #### [place] [address] Equine Pharmacology Technician: Campos Escobedo MD WBC Morphology NOT REPORTED Normal [facility] Comment on above: Performed By: #### C DP, IOCAL, PT, PTT, BMP, MG, MAIKEL, TSHX #### [place] [address] Equine Pharmacology Technician: Campos Escobedo MD Abs. Basophil 0.06 k/uL Normal 0.00-0.20 [facility] Comment on above: Performed By: #### C DP, TROPI, BMP, CRP, SED #### [address] [address] Equine Pharmacology Technician: Campos Escobedo MD Abs.Imm.Granulocyte 0.08 k/uL Normal 0.00-0.30 [facility] Comment on above: Performed By: #### C DP, TROPI, BMP, CRP, SED #### [place] [address] Equine Pharmacology Technician: Campos Escobedo MD Abs.Neutrophil (Seg) 6.97 k/uL Normal 1.50-8.10 [facility] Comment on above: Performed By: #### C DP, TROPI, BMP, CRP, SED #### [place] [address] Equine Pharmacology Technician: Campos Escobedo MD Basophils/100 WBC (Bld) 1 % Normal 0-2 [facility] Comment on above: Performed By: #### C DP, TROPI, BMP, CRP, SED #### [place] [address] Equine Pharmacology Technician: Campos Escobedo MD Eosinophils (Bld) [#/Vol] 0.35 10*3/uL Normal 0.00-0.44 [facility] Comment on above: Performed By: #### C DP, TROPI, BMP, CRP, SED #### [place] [address] Equine Pharmacology Technician: Campos Escobedo MD Eosinophils/100 WBC (Bld) 4 % Normal 1-4 [facility] Comment on above: Performed By: #### C DP, TROPI, BMP, CRP, SED #### [place] [address] Equine Pharmacology Technician: Campos Escobedo MD Erythrocyte distribution width (RBC) [Ratio] 12.5 % Normal 11.8-14.4 [facility] Comment on above: Performed By: #### C DP, TROPI, BMP, CRP, SED #### [place] [address] Equine Pharmacology Technician: Campos Escobedo MD Hematocrit (Bld) [Volume fraction] 32.3 % Low 36.3-47.1 [facility] Comment on above: Performed By: #### C DP, TROPI, BMP, CRP, SED #### [address] [address] Equine Pharmacology Technician: Campos Escobedo MD Hemoglobin (Bld) [Mass/Vol] 10.6 g/dL Low 11.9-15.1 [facility] Comment on above: Performed By: #### C DP, TROPI, BMP, CRP, SED #### [address] [address] Equine Pharmacology Technician: Campos Escobedo MD Immature granulocytes (Bld) [#/Vol] 1 % High 0 [facility] Comment on above: Performed By: #### C DP, TROPI, BMP, CRP, SED #### [address] [address] Equine Pharmacology Technician: Campos Escobedo MD Lymphocytes (Bld) [#/Vol] 1.62 10*3/uL Normal 1.10-3.70 [facility] Comment on above: Performed By: #### C DP, TROPI, BMP, CRP, SED #### [address] [address] Equine Pharmacology Technician: Campos Escobedo MD Lymphocytes/100 WBC (Bld) 16 % Low 24-43 [facility] Comment on above: Performed By: #### C DP, TROPI, BMP, CRP, SED #### [facility] [address] [place] [address] Equine Pharmacology Technician: Campos Escobedo MD MCH (RBC) [Entitic mass] 30.9 pg Normal 25.2-33.5 [facility] Comment on above: Performed By: #### C DP, TROPI, BMP, CRP, SED #### [facility] [address] [place] [address] Equine Pharmacology Technician: Campos Escobedo MD MCHC (RBC) [Mass/Vol] 32.8 g/dL Normal 28.4-34.8 [facility] Comment on above: Performed By: #### C DP, TROPI, BMP, CRP, SED #### [address] [address] Equine Pharmacology Technician: Campos Escobedo MD MCV (RBC) [Entitic vol] 94.2 fL Normal 82.6-102.9 [facility] Comment on above: Performed By: #### C DP, TROPI, BMP, CRP, SED #### [address] [address] Equine Pharmacology Technician: Campos Escobedo MD Monocytes (Bld) [#/Vol] 0.96 10*3/uL Normal 0.10-1.20 [facility] Comment on above: Performed By: #### C DP, TROPI, BMP, CRP, SED #### [address] [address] Equine Pharmacology Technician: Campos Escobedo MD Monocytes/100 WBC (Bld) 10 % Normal 3-12 [facility] Comment on above: Performed By: #### C DP, TROPI, BMP, CRP, SED #### [address] [address] Equine Pharmacology Technician: Campos Escobedo MD Neutrophil (Seg) 68 % High 36-65 [facility] Comment on above: Performed By: #### C DP, TROPI, BMP, CRP, SED #### [address] [address] Equine Pharmacology Technician: Campos Escobedo MD NRBC Automated 0.0 per 100 WBC Normal 0.0 [facility] Comment on above: Performed By: #### C DP, TROPI, BMP, CRP, SED #### [address] [address] Equine Pharmacology Technician: Campos Escobedo MD Platelet mean volume (Bld) [Entitic vol] 8.7 fL Normal 8.1-13.5 [facility] Comment on above: Performed By: #### C DP, TROPI, BMP, CRP, SED #### [address] [address] Equine Pharmacology Technician: Campos Escobedo MD Platelets (Bld) [#/Vol] 460 10*3/uL High 138-453 [facility] Comment on above: Performed By: #### C DP, TROPI, BMP, CRP, SED #### [address] [address] Equine Pharmacology Technician: Campos Escobedo MD RBC (Bld) [#/Vol] 3.43 10*6/uL Low 3.95-5.11 [facility] Comment on above: Performed By: #### C DP, TROPI, BMP, CRP, SED #### [address] [address] Equine Pharmacology Technician: Campos Escobedo MD WBC (Bld) [#/Vol] 10.0 10*3/uL Normal 3.5-11.3 [facility] Comment on above: Performed By: #### C DP, TROPI, BMP, CRP, SED #### [address] [address] Equine Pharmacology Technician: Campos Escobedo MD Auto Diff Performed NOT REPORTED Normal [facility] Comment on above: Performed By: #### C DP, TROPI, BMP, CRP, SED #### [address] [address] Equine Pharmacology Technician: Campos Escobedo MD Platelets (Bld) [#/Vol] NOT REPORTED Normal [facility] Comment on above: Performed By: #### C DP, TROPI, BMP, CRP, SED #### [address] [address] Equine Pharmacology Technician: Campos Escobedo MD RBC morphology finding Nom (Bld) NOT REPORTED Normal [facility] Comment on above: Performed By: #### C DP, TROPI, BMP, CRP, SED #### [facility] [address] [place] [address] Equine Pharmacology Technician: Campos Escobedo MD WBC Morphology NOT REPORTED Normal [facility] Comment on above: Performed By: #### C DP, TROPI, BMP, CRP, SED #### [facility] [address] [place] [address] Equine Pharmacology Technician: Campos Escobedo MD Calcium, Ionicon 08-13-2019 Calcium [Mass/Vol] 1.08 mmol/L Low 1.13-1.33 [facility] Comment on above: Performed By: #### C DP, IOCAL, PT, PTT, BMP, MG, MAIKEL, TSHX #### [address] [address] Equine Pharmacology Technician: Campos Escobedo MD Flu A/B Ag Detectionon 08-13 Flu A/B Ag Detection Specimen Descriptio n .NASOPHARYNGEAL SWAB Special Requests NOT REPORTED Direct Exam PRESUMPTIVE NEGATIVE for Influenza A + B antigens. PCR testing to confirm this result is available upon request. Specimen will be saved in the laboratory for 7 days. Please call [phone] if PCR testing is indicated. Report Status FINAL 08/13/2019 Normal [facility] Comment on above: Performed By: #### C DP, TROPI, BMP, CRP, SED #### [address] [address] Equine Pharmacology Technician: Campos Escobedo MD MRSA, DNA, Nasalon 9 MRSA, DNA, Nasal NEGATIVE: MRSA DNA n ot detected by nucleic acid amplification. [facility] Comment on above: Result Comment: Results should be used as an adjunct to nosocomial control efforts to identify patients needing enhanced precautions. The test is not intended to identify patients with staphylococcal infections. Results should not be used to guide or monitor treatment for MRSA infections. Performed By: #### C DP, TROPI, BMP, CRP, SED #### [address] [address] Equine Pharmacology Technician: Campos Escobedo MD Specimen Description .NASAL SWAB Normal [facility] Comment on above: Performed By: #### C DP, TROPI, BMP, CRP, SED #### [place] [address] Equine Pharmacology Technician: Campos Escobedo MD Magnesiumon 08-13-2019 Magnesium [Mass/Vol] 1.8 mg/dL Normal 1.6-2.6 [facility] Comment on above: Performed By: #### C DP, TROPI, BMP, CRP, SED #### [place] [address] Equine Pharmacology Technician: Campos Escobedo MD PTon 08-13-2019 INR Coag (PPP) [Relative time] 1.0 {INR} Normal [facility] Comment on above: Result Comment: Therapeutic Range: Moderate Anticoagulant Intensity: INR = 2.0-3.0 High Anticoagulant Intensity: INR = 2.5-3.5 Performed By: #### C DP, IOCAL, PT, PTT, BMP, MG, MAIKEL, TSHX #### [address] [address] Equine Pharmacology Technician: Campos Escobedo MD PT Coag (PPP) [Time] 11.0 s Normal 9.0-12.0 [facility] Comment on above: Performed By: #### C DP, IOCAL, PT, PTT, BMP, MG, MAIKEL, TSHX #### [address] [id number] Equine Pharmacology Technician: Campos Escobedo MD Phosphorus, Inorg.on 019 Phosphorus, Inorg. 2.8 mg/dL Normal 2.6-4.5 [facility] Comment on above: Performed By: #### C DP, TROPI, BMP, CRP, SED #### [facility] [address] [place] [phone] Equine Pharmacology Technician: Campos Escobedo MD Sedimentation Rateon 019 Sedimentation Rate 104 mm High 0-20 [facility] Comment on above: Performed By: #### C DP, TROPI, BMP, CRP, SED #### [facility] [address] [place] [id number] Equine Pharmacology Technician: Campos Escobedo MD TSH w/reflex to FT4on 2018 TSH Qn 4.54 m[IU]/L Normal 0.30-5.00 [facility] Comment on above: Performed By: #### C DP, TROPI, BMP, CRP, SED #### [address] [address] Equine Pharmacology Technician: Campos Escobedo MD Troponinon 08-13-2019 Troponin I.cardiac [Mass/Vol] 6 ng/L Normal 0-14 [facility] Comment on above: Result Comment: High Sensitivity Troponin values cannot be compared with other Troponin methodologies. Patients with high levels of Biotin oral intake (i.e >5mg/day) may have falsely decreased Troponin levels. Samples collected within 8 hours of biotin intake may require additional information for diagnosis. Performed By: #### C DP, TROPI, BMP, CRP, SED #### [facility] [address] [place] [phone] Equine Pharmacology Technician: Campos Escobedo MD Troponin I.cardiac [Mass/Vol] NOT REPORTED Normal <0.03 [facility] Comment on above: Performed By: #### C DP, TROPI, BMP, CRP, SED #### [facility] [address] [place] [address] Equine Pharmacology Technician: Campos Escobedo MD XR CHEST PORTABLEon 08-13-20 19 XR CHEST PORTABLE EXAMINATION: ONE XRAY [...] Kai Elias MD 08/13/19 Final result Normal [facility] Vital Signs Date Time Vital Sign Value Performing Clinician Facility 03-12-2025 16:18-0400 Diastolic blood pressure 82 mm[Hg] Monikajenny Castillo CONTENT PRODUCTION SPECIALIST Work Phone: [facility] 03-12-2025 16:18-0400 Systolic blood pressure 142 mm[Hg] Monika Anna CONTENT PRODUCTION SPECIALIST Work Phone: [facility] 03-12-2025 15:38-0400 Body mass index (BMI) [Ratio] 33.44 kg/m2 Monika Anna CONTENT PRODUCTION SPECIALIST Work Phone: [facility] 03-12-2025 15:38-0400 Body temperature 98.01 [degF] Monika Anna CONTENT PRODUCTION SPECIALIST Work Phone: [facility] 03-12-2025 15:38-0400 Body weight 88.36 kg Monika Anna CONTENT PRODUCTION SPECIALIST Work Phone: [facility] 03-12-2025 15:38-0400 Heart rate 81 /min Monika Anna CONTENT PRODUCTION SPECIALIST Work Phone: [facility] 03-12-2025 15:38-0400 Respiratory rate 19 /min Monika Anna CONTENT PRODUCTION SPECIALIST Work Phone: [facility] 03-12-2025 15:38-0400 SaO2% (BldA) [Mass fraction] 93 % Monika Anna CONTENT PRODUCTION SPECIALIST Work Phone: [facility] 12-26-2024 11:02-0400 Body height 162.6 cm Halle Petznick DO Work Phone: [facility] 12-26-2024 11:02-0400 Body mass index (BMI) [Ratio] 32.96 kg/m2 Halle Petznick DO Work Phone: [facility] 12-26-2024 11:02-0400 Body temperature 97.9 [degF] Halle Petznick DO Work Phone: [facility] 12-26-2024 11:02-0400 Body weight 87.09 kg Halle Petznick DO Work Phone: [facility] 12-26-2024 11:02-0400 Diastolic blood pressure 64 mm[Hg] Halle Petznick DO Work Phone: [facility] 12-26-2024 11:02-0400 Heart rate 73 /min Halle Petznick DO Work Phone: [facility] 12-26-2024 11:02-0400 SaO2% (BldA) [Mass fraction] 93 % Halle Petznick DO Work Phone: [facility] 12-26-2024 11:02-0400 Systolic blood pressure 122 mm[Hg] Halle Petznick DO Work Phone: [facility] 10-24-2024 14:51-0500 Body height 162.6 cm Monika Castillo CONTENT PRODUCTION SPECIALIST Work Phone: [facility] 10-24-2024 14:51-0500 Body mass index (BMI) [Ratio] 32.82 kg/m2 Monika Anna CONTENT PRODUCTION SPECIALIST Work Phone: [facility] 10-24-2024 14:51-0500 Body temperature 98.8 [degF] Monika Anna CONTENT PRODUCTION SPECIALIST Work Phone: [facility] 10-24-2024 14:51-0500 Body weight 86.73 kg Monika Anna CONTENT PRODUCTION SPECIALIST Work Phone: [facility] 10-24-2024 14:51-0500 Diastolic blood pressure 80 mm[Hg] Monika Anna CONTENT PRODUCTION SPECIALIST Work Phone: [facility] 10-24-2024 14:51-0500 Heart rate 78 /min Monika Castillo CONTENT PRODUCTION SPECIALIST Work Phone: [facility] 10-24-2024 14:51-0500 Respiratory rate 18 /min Monika Castillo CONTENT PRODUCTION SPECIALIST Work Phone: [facility] 10-24-2024 14:51-0500 SaO2% (BldA) [Mass fraction] 94 % Monika Castillo CONTENT PRODUCTION SPECIALIST Work Phone: [facility] 10-24-2024 14:51-0500 Systolic blood pressure 138 mm[Hg] Monika Castillo CONTENT PRODUCTION SPECIALIST Work Phone: [facility] 08-23-2024 10:18-0500 Body height 162.6 cm Halle Petznick DO Work Phone: [facility] 08-23-2024 10:18-0500 Body mass index (BMI) [Ratio] 31.93 kg/m2 Halle Petznick DO Work Phone: [facility] 08-23-2024 10:18-0500 Body temperature 97.9 [degF] Ahlle Petznick DO Work Phone: [facility] 08-23-2024 10:18-0500 Body weight 84.37 kg Halle Petznick DO Work Phone: [facility] 08-23-2024 10:18-0500 Diastolic blood pressure 82 mm[Hg] Halle Petznick DO Work Phone: [facility] 08-23-2024 10:18-0500 Heart rate 60 /min Halle Petznick DO Work Phone: [facility] 08-23-2024 10:18-0500 SaO2% (BldA) [Mass fraction] 94 % Halle Petznick DO Work Phone: [facility] 08-23-2024 10:18-0500 Systolic blood pressure 136 mm[Hg] Halle Petznick DO Work Phone: [facility] 01-25-2024 10:41-0400 Body height 162.56 cm [facility] 01-25-2024 10:41-0400 Body mass index (BMI) [Ratio] 32.4 kg/m2 [facility] 01-25-2024 10:41-0400 Body weight 85.72 kg [facility] 01-25-2024 10:41-0400 Diastolic blood pressure 79 mm[Hg] [facility] 01-25-2024 10:41-0400 Heart rate 71 /min [facility] 01-25-2024 10:41-0400 Systolic blood pressure 136 mm[Hg] [facility] 09-26-2023 10:45-0500 Body height 162.56 cm Cordell Masters Other [facility] [employer] Other 09-26-2023 10:45-0500 Body mass index (BMI) [Ratio] 30.86 kg/m2 Cordell Masters Other [employer] Other 09-26-2023 10:45-0500 Body temperature 96.1 [degF] Cordell Masters Other [employer] Other 09-26-2023 10:45-0500 Body weight 81.56 kg Cordell Masters Other [employer] Other 09-26-2023 10:45-0500 Diastolic blood pressure 71 mm[Hg] Cordell Masters Other [employer] Other 09-26-2023 10:45-0500 Systolic blood pressure 135 mm[Hg] Cordell Masters Other [employer] Other Encounters Encounter Date Encounter Type Care Provider Facility Start: 03-12-2025 End: 03-12-2025 Office outpatient visit 25 minutes Monika Castillo CONTENT PRODUCTION SPECIALIST Work Phone: [facility] Comment on above: Anxiety and depressi on ([facility]/HCC) (Primary Dx); Class 1 obesity due to excess calories with serious comorbidity and body mass index (BMI) of 31.0 to 31.9 in adult; Hypothyroidism, unspecified type ([facility]); Encounter for screening mammogram for malignant neoplasm of breast; Primary hypertension ([facility]); Type 2 diabetes mellitus with other circulatory complications; Vitamin D deficiency Start: 03-12-2025 End: 03-12-2025 ambulatory MONIKA AICHHOLZ Not Available Start: 01-26-2025 End: 01-27-2025 Refill Monika Aichholz CONTENT PRODUCTION SPECIALIST Work Phone: [facility] FM Comment on above: Primary hypertension ([facility]) Start: 12-26-2024 End: 12-26-2024 Office outpatient visit 25 minutes Halle Byers DO Work Phone: [facility] [phone] Comment on above: 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) ([facility]) ([facility]) (Primary Dx); Type 2 diabetes mellitus with other circulatory complications ([facility]); alf (current) use of insulin ([facility]) Start: 12-26-2024 End: 12-26-2024 ambulatory HALLE BYERS Not Available Start: 12-11-2024 End: 12-11-2024 Refill Monika Aichholz CONTENT PRODUCTION SPECIALIST Work Phone: [facility] FM Comment on above: Vitamin D deficiency Start: 12-06-2024 End: 12-06-2024 Refill Monika Aichholz CONTENT PRODUCTION SPECIALIST Work Phone: [facility] Comment on above: Vitamin D deficiency Start: 11-20-2024 End: 11-20-2024 Office outpatient new 45 minutes Mary Kay Womack CONTENT PRODUCTION SPECIALIST Work Phone: [facility] Comment on above: Impingement of left shoulder (Primary Dx); Left shoulder pain, unspecified chronicity; Arthritis of left acromioclavicular joint Start: 11-20-2024 End: 11-20-2024 ambulatory MARY KAY WOMACK Not Available Start: 11-20-2024 End: 11-20-2024 Bamboo flowsheet Mary Kay Womack CONTENT PRODUCTION SPECIALIST Work Phone: [facility] Start: 11-20-2024 End: 11-20-2024 Bamboo flowsheet Mary Kay Womack CONTENT PRODUCTION SPECIALIST Work Phone: [facility] Start: 11-13-2024 End: 11-13-2024 Clinisync Result Encounter Monika Anna CONTENT PRODUCTION SPECIALIST Work Phone: [facility] Unsolicited Start: 11-13-2024 End: 11-13-2024 Clinisync Result Encounter Monika Anna CONTENT PRODUCTION SPECIALIST Work Phone: [facility] Unsolicited Start: 11-13-2024 End: 11-13-2024 Refill Monika Castillo CONTENT PRODUCTION SPECIALIST Work Phone: [facility] Comment on above: Vitamin D deficiency (Primary Dx) Start: 11-08-2024 End: 11-08-2024 Orders Only Monika Castillo CONTENT PRODUCTION SPECIALIST Work Phone: [facility] Comment on above: Hypocalcemia (Primar y Dx) Start: 11-07-2024 End: 11-07-2024 Clinisync Result Encounter Monika Anna CONTENT PRODUCTION SPECIALIST Work Phone: [facility] Unsolicited Start: 11-07-2024 End: 11-07-2024 Clinisync Result Encounter Monika Anna CONTENT PRODUCTION SPECIALIST Work Phone: [facility] Unsolicited Start: 10-24-2024 End: 10-24-2024 Office outpatient visit 25 minutes Monika Castillo CONTENT PRODUCTION SPECIALIST Work Phone: [facility] Comment on above: Primary hypertension (CMS/HCC) (Primary Dx); 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/HCC); alf (current) use of insulin (CMS/HCC); Other specified diabetes mellitus without complications (CMS/HCC); 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); Anxiety and depression (CMS/HCC); Hypothyroidism, unspecified type (CMS/HCC); Pericardial effusion; Cerebrovascular accident (CVA), unspecified mechanism ([facility]); Chronic left shoulder pain Start: 10-24-2024 End: 10-24-2024 ambulatory MONIKA AICHHOLZ Not Available Start: 10-24-2024 End: 10-24-2024 Bamboo flowsheet Monika Aichholz CONTENT PRODUCTION SPECIALIST Work Phone: [facility] Start: 10-24-2024 End: 10-24-2024 Bamboo flowsheet Monika Aichholz CONTENT PRODUCTION SPECIALIST Work Phone: [facility] Start: 08-23-2024 End: 08-23-2024 Office outpatient visit 25 minutes Halle Johnson Byers DO Work Phone: [facility] 230 Comment on above: 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) ([facility]) ([facility]) (Primary Dx); Type 2 diabetes mellitus with other circulatory complications ([facility]); Long-term insulin use ([facility]) Start: 08-23-2024 End: 08-23-2024 ambulatory HALLE Ornelas PETABHISHEKICK Not Available Start: 05-23-2024 End: 05-23-2024 ambulatory HALLE Ornelas PETZNICK Not Available Start: 05-08-2024 End: 05-08-2024 ambulatory MONIKA AICHHOLZ Not Available Start: 05-08-2024 Patient encounter procedure Al tanvi Byers DO Work Phone: [facility] Start: 04-03-2024 End: 04-03-2024 ambulatory MONIKA AICHHOLZ Not Available Start: 01-25-2024 End: 01-25-2024 ambulatory [facility] Work Phone: Start: 01-25-2024 End: 01-25-2024 Patient encounter procedure [facility] Work Phone: Start: 01-01-2024 Non-patient / Non-visit [facility] Work Phone: Start: 11-02-2023 End: 11-02-2023 ambulatory Cordell Masters Other [employer] Other Start: 11-02-2023 Telephone encounter Cordell Masters [facility] Start: 10-05-2023 End: 10-05-2023 ambulatory Cordell Masters Other [employer] Other Start: 10-05-2023 Telephone encounter Cordell Masters [facility] Start: 09-26-2023 End: 09-26-2023 ambulatory Cordell Masters Other [employer] Other Start: 09-26-2023 Office outpatient vi sit 15 minutes Cordell Masters [facility] Start: 08-18-2023 End: 08-21-2023 ambulatory [facility] Start: 08-17-2023 End: 08-20-2023 ambulatory GEOFF RANDAL [facility] Start: 08-02-2023 End: 08-02-2023 ambulatory Cordell Masters Other [employer] Other Start: 08-02-2023 Telephone encounter Cordell Masters [facility] Start: 07-13-2023 End: 07-13-2023 ambulatory Cordell Masters Other [employer] Other Start: 07-13-2023 Telephone encounter Cordell Masters [facility] Start: 03-14-2023 End: 03-14-2023 ambulatory Cordell Masters Other [employer] Other Start: 03-14-2023 Telephone encounter Cordell Masters [facility] Start: 03-10-2023 End: 03-11-[address] CORDELL MASTERS Facility:[facility] Start: 04-13-2022 Encounter for genera l adult medical examination without abnormal findings DR CORDELL MASTERS [facility] Start: 04-08-2022 End: 04-09-[address] CORDELL MASTERS Facility:[facility] Start: 04-08-2022 End: 04-09-2022 Encounter for general adult medical examination without abnormal findings DR CORDELL MASTERS Facility:[facility] Start: 10-24-2019 End: 10-25-2019 Patient encounter procedure POORNIMA GREEN [facility] Start: 10-24-2019 End: 10-24-2019 Subsequent hospital visit by physician Cordell Masters MD Work Phone: [facility] Comment on above: Coxsackie virus infe ction Start: 10-21-2019 End: 10-23-2019 Subsequent hospital visit by physician [address] Radiology Comment on above: Pleural effusion on left Start: 09-18-2019 End: 09-18-2019 Subsequent hospital visit by physician Cordell Masters [facility] Comment on above: Coxsackie virus infe ction Start: 09-06-2019 End: 09-08-2019 Subsequent hospital visit by physician Cordell Masters [facility]iology Start: 09-04-2019 End: 09-05-2019 Patient encounter procedure MANOLO CONKLIN [facility] Start: 09-04-2019 End: 09-04-2019 Subsequent hospital visit by physician [id number] Comment on above: S/P pericardial wind ow creation; Pericardial effusion Start: 08-13-2019 End: 08-24-2019 Evaluation and management of inpatient BHARAT ARMANDO [facility] Procedures Date Procedure Procedure Detail Performing Clinician Start: 12-26-2024 Hemoglobin glycosylated a1c Halle Byers DO Work Phone: Start: 11-20-2024 Arthrocentesis aspir &/inj major jt/bursa w/us Mary Kay Womack CONTENT PRODUCTION SPECIALIST Work Phone: Start: 11-20-2024 Radex shoulder compl ete minimum 2 views Mary Kay Womack CONTENT PRODUCTION SPECIALIST Work Phone: Start: 11-13-2024 TBH VITAMIN D 25 [place] Lis a Anna CONTENT PRODUCTION SPECIALIST Work Phone: Start: 11-07-2024 ALL CBC WITH AUTO DIFF Monika Castillo CONTENT PRODUCTION SPECIALIST Work Phone: Start: 08-23-2024 Hemoglobin glycosylated a1c Halle Byers DO Work Phone: Start: 04-04-2024 Colonoscopy aHlle devi DO Work Phone: Start: 04-04-2024 Mammography Halle devi DO Work Phone: Start: 10-24-[address] [facility] Start: 10-21-2019 Radiologic exam ches t 2 views Juanjo Coates MD Work Phone: Start: 09-04-2019 Echo transthorc r-t 2d w/wo m-mode rec f-up/lmtd BHARAT [facility] Start: 09-04-2019 ECHOCARDIOGRAM LIMITED Manolo Avendanouthers Work Phone: Start: 08-24-2019 Gluc bld gluc [...] strip BHARAT RE[facility] Start: 08-24-2019 ACAPELLA BHARAT RE INECK Start: 08-24-2019 INCENTIVE SPIROMETRY RT [facility]AT [facility] Start: 08-24-2019 Gluc bld gluc mntr d ev cleared fda spec home use BHARAT REINECK Start: 08-24-2019 Radiologic exam ches t single view BHARAT REINECK Start: 08-24-2019 ACAPERADHA POND Start: 08-24-2019 INCENTIVE SPIROMETRY RT [facility]AT RE[facility] Start: 08-24-2019 INITIATE OXYGEN THER APY PROTOCOL BHARAT RE[facility] Start: 08-24-[address] EPHEN [facility] Start: 08-24-2019 Glucose blood reagent strip BHARAT REINECK Start: 08-24-2019 ACAPERADHA POND Start: 08-24-2019 INCENTIVE SPIROMETRY RT BHARAT REINECK [...] spec home use BHARAT REINECK Start: 08-24-2019 ZENAIDA POND Start: 08-24-2019 INCENTIVE SPIROMETRY RT [facility] Start: 08-23-2019 Glucose blood reagent strip BHARAT REINECK Start: 08-23-2019 ACABELINDA POND Start: 08-23-2019 INCENTIVE SPIROMETRY RT [facility] Start: 08-23-2019 Gluc bld gluc mntr d ev cleared fda spec home use BHARAT REINEC[facility] Start: 08-23-2019 Culture fngi mold/ye ast prsmptv oth xcpt blood BH[facility]AT [facility] Start: 08-23-2019 Cytopath fl nongyn, sm/fltr BH[facility]AT RE[facility]EC[facility] Start: 08-23-2019 Culture tubercle/oth acid-fast bacilli any isol [facility]AT [facility] Start: 08-23-2019 Cul bact xcpt urine blood/stool aerobic isol [facility]AT [facility] Start: 08-23-2019 Smr prim src gram/gi emsa stain bct fungi/cell BHARAT OTOOLEECK Start: 08-23-2019 Cell count misc body fluids w/differential count [facility]AT [facility] Start: 08-23-2019 Glucose body fluid o ther than blood [facility] Start: 08-23-2019 Lactate dehydrogenase ldh BHARAT REINECK Start: 08-23-2019 Ph body fluid not el sewhere specified BHARAT OTOOLEECK Start: 08-23-2019 Protein total xcpt refractometry oth src BHARAT REINECK Start: 08-23-2019 ACAPELLA BHARAT RE DEJAH Start: 08-23-2019 INCENTIVE SPIROMETRY RT [facility]AT REINECK Start: 08-23-2019 Glucose blood reagent strip BHARAT OTOOLEECK Start: 08-23-2019 ACAPELLA BHARAT RE DEJAH Start: 08-23-2019 INCENTIVE SPIROMETRY RT BHARAT OTOLOEECK Start: 08-23-2019 DIETARY NUTRITION SUPPLEMENTS BHARAT OTOOLEECK Start: 08-23-2019 Antinuclear antibodies lois BH[facility]AT [facility] Start: 08-23-2019 ACAPELLA BHARATSKYLAR POND Start: 08-23-2019 INCENTIVE SPIROMETRY RT [facility]AT [facility] Start: 08-23-2019 Thoracentesis needle /cath pleura w/imaging BHARAT OTOOLEECK Start: 08-23-2019 ACAPELLA BHARAT RE DEJAH Start: 08-23-2019 INCENTIVE SPIROMETRY RT [facility]AT [facility] Start: 08-23-2019 Antinuclear antibodies lois [facility] Start: 08-23-2019 C-reactive protein JEANETH [facility] Start: 08-23-2019 Cyclic citrullinated peptide antibody BH[facility]AT [facility] Start: 08-23-2019 Hepatic function panel BHARAT OTOOLEECK Start: 08-23-2019 Lactate dehydrogenase ldh BHARAT REINECK Start: 08-23-2019 Glucose blood reagent strip BHARAT OTOOLEECK Start: 08-23-2019 ACAPELLA BHARAT RE DEJAH Start: 08-23-2019 INCENTIVE SPIROMETRY RT [facility]AT [facility] Start: 08-23-2019 Radiologic exam ches t 2 views BHARAT OTOOLEECK Start: 08-23-2019 Gluc bld gluc mntr d ev cleared fda spec home use BHARAT OTOOLEECK Start: 08-23-2019 ACAPELLA BHARAT RE DEJAH Start: 08-23-2019 INCENTIVE SPIROMETRY RT [facility]AT REINECK Start: 08-23-[address] [facility] Start: 08-23-2019 INITIATE OXYGEN THER APY PROTOCOL BHARAT REINECK Start: 08-23-2019 Glucose blood reagent strip BHARAT REINECK Start: 08-23-2019 ACAPELLA BHARATSKYLAR POND Start: 08-23-2019 INCENTIVE SPIROMETRY RT BHARAT REINECK [...] spec home use BHARAT REINECK Start: 08-23-2019 ACAPELLJenny BHARATSKYLAR POND Start: 08-23-2019 INCENTIVE SPIROMETRY RT [facility] Start: 08-22-2019 Glucose blood reagent strip BHARAT REINECK Start: 08-22-2019 ACAPERADHA POND Start: 08-22-2019 INCENTIVE SPIROMETRY RT [facility] Start: 08-22-2019 Gluc bld gluc mntr d ev cleared fda spec home use BHARAT REINECK Start: 08-22-2019 ACABELINDA POND Start: 08-22-2019 INCENTIVE SPIROMETRY RT [facility] Start: 08-22-2019 Assay of magnesium STEP HEN [facility] Start: 08-22-2019 Potassium serum plasma/whole blood BHARAT REINECK Start: 08-22-2019 ACAPELLA BHARAT POND Start: 08-22-2019 INCENTIVE SPIROMETRY RT BHARAT REINECK Start: 08-22-2019 Glucose blood reagent strip BHARAT REINECK Start: 08-22-[address] [facility] Start: 08-22-2019 ACAPERADHA POND Start: 08-22-2019 INCENTIVE SPIROMETRY RT BHARAT REINECK Start: 08-22-2019 ACAPERADHA GOLDMAN DEJAH Start: 08-22-2019 INCENTIVE SPIROMETRY RT [facility] Start: 08-22-2019 Glucose blood reagent strip BHARAT REINECK Start: 08-22-2019 ACAPERADHA GOLDMAN DEJAH Start: 08-22-2019 INCENTIVE SPIROMETRY RT [facility]AT [facility]EC[facility] Start: 08-22-2019 Gluc bld gluc mntr d ev cleared fda spec home use BHARAT REINECK Start: 08-22-2019 ACAPERADHA GOLDMAN DEJAH Start: 08-22-2019 INCENTIVE SPIROMETRY RT [facility]AT REINECK Start: 08-22-2019 INITIATE OXYGEN THER APY PROTOCOL BHARAT REINECK Start: 08-22-2019 Glucose blood reagent strip BHARAT REINECK Start: 08-22-2019 Assay of magnesium STEP HEN REINECK Start: 08-22-2019 Assay of phosphorus inorganic BHARAT REINECK Start: 08-22-2019 Blood count complete auto&auto difrntl wbc BHARAT REINECK Start: 08-22-2019 Calcium ionized BHARAT REINECK Start: 08-22-2019 Comprehensive metabo lic panel BHARAT REINECK Start: 08-22-2019 Prothrombin time STEPHE N REINECK Start: 08-22-2019 Thromboplastin time partial plasma/whole blood [facility]AT [facility] Start: 08-22-2019 ACAGURPREETJenny GOLDMAN DEJAH Start: 08-22-2019 INCENTIVE SPIROMETRY RT [facility]AT RE[facility]EC[facility] Start: 08-22-2019 Gluc bld gluc mntr d ev cleared fda spec home use BHARAT REINECK Start: 08-22-2019 DAILY WEIGHTS BHARAT Martini NAYELYETHAN Start: 08-22-2019 INTAKE AND OUTPUT IMELDA EN REINECK Start: 08-22-2019 Gluc bld gluc mntr d ev cleared fda spec home use BHARAT REINECK Start: 08-22-2019 ACABELINDA GOLDMAN DEJAH Start: 08-22-2019 INCENTIVE SPIROMETRY RT [facility] Start: 08-21-2019 Glucose blood reagent strip BAHRAT REINECK Start: 08-21-2019 ACAGURPREETJenny GOLDMAN DEJAH Start: 08-21-2019 INCENTIVE SPIROMETRY RT [facility]AT RE[facility]EC[facility] Start: 08-21-2019 Gluc bld gluc mntr d ev cleared fda spec home use BHARAT REINECK Start: 08-21-2019 ACAGURPREETJenny GOLDMAN DEJAH Start: 08-21-2019 INCENTIVE SPIROMETRY RT [facility]AT REINECK Start: 08-21-2019 Radiologic exam ches t single view BHARAT REINECK Start: 08-21-2019 Glucose blood reagent strip BHARAT REINECK Start: 08-21-2019 ACAPELLJenny NICHOLSON RE DEJAH Start: 08-21-2019 INCENTIVE SPIROMETRY RT [facility] Start: 08-21-2019 ACAPERADHA NICHOLSON RE KRZYSZTOFCK Start: 08-21-2019 INCENTIVE SPIROMETRY RT [facility]AT [facility] Start: 08-21-2019 Level iv surg pathol ogy gross&microscopic exam BHARAT REINECK Start: 08-21-2019 ACAPELLA BHARAT RE KRZYSZTOFCK Start: 08-21-2019 INCENTIVE SPIROMETRY RT [facility] Start: 08-21-2019 DIET CARDIAC BHARAT RE INECK Start: 08-21-2019 Glucose blood reagent strip BHARAT [...] AND TREAT IMELDA EN REINECK Start: 08-21-2019 ACAPERADHA POND Start: 08-21-2019 ADVANCE DIET TOLE RATED (NURSING COMMUNICATION) BHARAT REINECK Start: 08-21-2019 AMBULATE PATIENT STEPHE N REINECK Start: 08-21-2019 CHEST TUBE TO CONTIN UOUS SUCTION BHARAT REINECK Start: 08-21-2019 ELEVATE HOB BHARAT RE INECK Start: 08-21-2019 ENCOURAGE DEEP BREAT TREVOR AND COUGHING BHARAT REINECK Start: 08-21-2019 FULL CODE BHARAT RE INECK Start: 08-21-2019 INCENTIVE SPIROMETRY RT [facility]AT [facility] Start: 08-21-2019 INTAKE AND OUTPUT IMELDA EN REINECK Start: 08-21-2019 NOTIFY PHYSICIAN (SPECIFY) BH[facility]AT RE[facility] Start: 08-21-2019 NURSING COMMUNICATION S DOMONIQUE REINECK Start: 08-21-2019 TUBE SITE CARE BHARAT REINECK Start: 08-21-2019 VITAL SIGNS BHARAT POND Start: 08-21-2019 WOUND CARE BHARAT POND Start: 08-21-2019 Gluc bld gluc mntr d [...] [facility]AT [facility] Start: 08-19-[address] [facility] Start: 08-19-2019 Glucose blood reagent strip [...] d ev cleared fda spec home use BAHRAT REINECK Start: 08-18-2019 INTAKE AND OUTPUT IMELDA [...] REINECK Start: 08-16-2019 Assay of magnesium STEP HEN REINECK Start: 08-16-2019 Assay of phosphorus inorganic [...] BHARAT REINECK Start: 08-15-2019 C-reactive protein STEP HEN REINECK Start: 08-15-2019 Calcium ionized BHARAT REINECK [...] strip [facility]AT [facility] Start: 08-13-2019 TRANSFER PATIENT BIGG N REINECK Start: 08-13-2019 Glucose blood reagent [...] wbc BHARAT REINECK Start: 08-13-2019 C-reactive protein STEP HEN REINECK Start: 08-13-2019 Sedimentation rate r [...] 04-04-2034 Screening for malignant neoplasm of colon [facility] Start: 07-16-2025 Glaucoma screening Diabetes: Retinopathy Screening [facility] Start: 05-08-2025 Medicare Annual Wellness (AWV) Medicare Annual Wellness (AWV) [facility] Start: 05-01-2025 End: 05-01-2025 Patient encounter procedure 05/01/2025 10:30 AM EDT Office Visit [facility] [address] [place] [address] Halle Byers DO [address] [place] [address] [facility] Start: 04-12-2025 End: 05-12-2026 MG Breast - bilateral Screening Bilateral screening mammogram Imaging Routine Encounter for screening mammogram for malignant neoplasm of breast Expected: 04/12/2025 (Approximate), Expires: 05/12/2026 [facility] Work Phone: Comment on above: Expected: 04/12/2025 (Approximate), Expi res: 05/12/2026 Start: 04-06-2025 Urine screening for protein Diabetes: Urine Protein Screening [facility] Start: 04-04-2025 Screening for malignant neoplasm of breast Mammogram [facility] Start: 03-28-2025 Hemoglobin A1c measurement Diabetes: Hemoglobin A1C [facility] Start: 03-12-2025 End: 03-12-2026 25-hydroxyvitamin D3 [Mass/volume] in Serum or Plasma Vitamin D 25 hydroxy Lab Routine Vitamin D deficiency Expected: 03/12/2025 (Approximate), Expires: 03/12/2026 [facility] Comment on above: Expected: 03/12/2025 (Approximate), Expi res: 03/12/2026 Start: 02-05-2025 End: 02-05-2025 Patient encounter procedure 02/05/2025 2:20 PM EDT Office Visit [facility] [address] [place] [address] Monika Castillo NP [address] [place] [address] [facility] Start: 01-22-2025 End: 01-22-2025 Patient encounter procedure 01/22/2025 1:00 PM EDT Office Visit [facility] [address] [place] [address] Monika Castillo, FABIOLA [address] [place] [address] [facility] Start: 12-19-2024 End: 12-19-2024 Patient encounter procedure 12/19/2024 11:15 AM EST Office Visit [facility] [address] [place] [id number] Halle Byers DO [address] [place] [address] [facility] [address] Start: 12-11-2024 End: 12-11-2024 Patient encounter procedure 12/11/2024 2:45 PM EST Office Visit [facility] [address] [place] [address] Mary Kay Womack, FABIOLA [address] [place] [address] [facility] Start: 11-23-2024 Hemoglobin A1c measurement Diabetes: Hemoglobin A1C [facility] Start: 11-20-2024 End: 11-20-2024 Patient encounter procedure [facility] Comment on above: Left shoulder pain, unspecified chronici ty Start: 11-08-2024 End: 11-08-2025 25-hydroxyvitamin D3 [Mass/volume] in Serum or Plasma Vitamin D 25 hydroxy Lab Routine Hypocalcemia Expected: 11/08/2024 (Approximate), Expires: 11/08/2025 [facility] Work Phone: Comment on above: Expected: 11/08/2024 (Approximate), Expi res: 11/08/2025 Start: 10-24-2024 End: 10-24-2024 Patient encounter procedure 10/24/2024 2:40 PM EST Office Visit [facility] [address] [place] [address] Monika Castillo NP [address] [place] [address] Primary hypertension (CMS/HCC) (Primary Dx); 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/HCC); technician terminal and repeater (current) use of insulin (CMS/HCC); Other specified diabetes mellitus without complications (CMS/HCC); 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); Anxiety and depression (CMS/HCC) [facility] Comment on above: Primary hypertension (CMS/HCC) (Primary Dx); 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/HCC); technician terminal and repeater (current) use of insulin (CMS/HCC); Other specified diabetes mellitus without complications (CMS/HCC); 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); Anxiety and depression ([facility]) Start: 10-24-2024 End: 10-24-2025 Basic metabolic 1998 panel - Serum or Plasma Basic metabolic panel Lab Routine Type 2 diabetes mellitus with other circulatory complications ([facility]) Expected: 10/24/2024 (Approximate), Expires: 10/24/2025 [facility] Comment on above: Expected: 10/24/2024 (Approximate), Expi res: 10/24/2025 Start: 10-24-2024 End: 10-24-2025 CBC W Auto Differential panel - Blood CBC and differential Lab Routine Cerebrovascular accident (CVA), unspecified mechanism ([facility]) Expected: 10/24/2024 (Approximate), Expires: 10/24/2025 [facility] Comment on above: Expected: 10/24/2024 (Approximate), Expi res: 10/24/2025 Start: 10-24-2024 End: 10-24-2025 Thyrotropin [Units/volume] in Serum or Plasma TSH Lab Routine Hypothyroidism, unspecified type ([facility]/HCC) Expected: 10/24/2024 (Approximate), Expires: 10/24/2025 [facility] Work Phone: Comment on above: Expected: 10/24/2024 (Approximate), Expi res: 10/24/2025 Start: 10-24-2024 End: 10-24-2025 Thyroxine (T4) free [Mass/volume] in Serum or Plasma T4, free Lab Routine Hypothyroidism, unspecified type ([facility]/HCC) Expected: 10/24/2024 (Approximate), Expires: 10/24/2025 [facility] Comment on above: Expected: 10/24/2024 (Approximate), Expi res: 10/24/2025 Start: 01-25-2024 Patient referral [facility] Work Phone: Start: 08-19-2020 A1C test (Diabetic or Prediabetic) A1C test (Diabetic or Prediabetic) [place], [place] Start: 08-13-2020 TSH testing TSH testing [place], [place] Start: 01-16-2020 End: 01-16-2020 Patient encounter procedure 01/16/2020 Office Visit Infectious Diseases Chris Butler MD [address] [place], [place] [id number] [facility] Start: 11-21-2019 End: 11-21-2019 Patient encounter procedure 11/21/2019 Office Visit Pulmonology Juanjo Coates MD [address] [place], [place] [id number] [facility] Start: 10-24-2019 End: 10-24-2019 Office Visit [facility] Comment on above: Acute bloody pericarditis (Primary Dx); Coxsackie virus infection; Pneumonia of left lower lobe due to infectious organism (HCC); Pleural effusion on left; Type 2 diabetes mellitus without complication, without long-term current use of insulin (HCC) Start: 09-26-2019 End: 09-26-2019 Office Visit 09/26/2019 Office Visit Pulmonology Juanjo Coates MD [address] [place] [address] [phone] [facility] [place] Start: 06-16-2019 Influenza vaccination Flu vaccine (#1) [place], [place] Start: 2006 Breast cancer screen Breast cancer screen [place], [place] Start: 2006 Colon cancer screen colonoscopy Colon cancer screen colonoscopy [place] Start: 2006 Shingles Vaccine (1 of 2) Shingles Vaccine (1 of 2) [place], [place] Start: 1977 Cervical cancer screen Cervical cancer screen [place] Start: 1974 Diabetic microalbuminuria test Diabetic microalbuminuria test [place] Start: 1971 HIV screen HIV screen [place] Start: 1967 DTaP/Tdap/Td vaccine (1 - Tdap) DTaP/Tdap/Td vaccine (1 - Tdap) [place] Start: 1966 [object Object] Diabetic foot exam [place] Start: 1966 Diabetic retinal exam Diabetic retinal exam [place], [place] Start: 1966 Lipid screen Lipid screen [place] Start: 1962 Pneumococcal 0-64 years Vaccine (1 of 1 - PPSV23) Pneumococcal 0-64 years Vaccine (1 of 1 - PPSV23) [place] Start: 1956 Hepatitis C screen Hepatitis C screen [place], [place] Start: 1956 Screening for malignant neoplasm of colon [facility] End: 09-18-2019 Coxsackie B Virus Abs Coxsackie B Virus Abs Lab Routine Coxsackie virus infection 1 Occurrences starting 09/18/2019 until 09/18/2019 [place] Comment on above: 1 Occurrences starting 09/18/2019 until 09/18/2019 Coxsackie B Virus Abs [place] End: 10-24-2019 Coxsackie B Virus Abs Coxsackie B Virus Abs Lab Routine Coxsackie virus infection 1 Occurrences starting 10/24/2019 until 10/24/2019 [facility] Work Phone: Comment on above: 1 Occurrences starting 10/24/2019 until 10/24/2019 Patient referral [facility] Work Phone: Payers Date Payer Category Payer Private Health Insurance [employer] [id number] 2021 Medicare MEDICARE [id number] 2018 Unknown VERONICA SANDOVAL [facility] SAMREEN xxxxxxxxxxx 2018-Present [phone] [address] [place] [address] xxxxxxxxxxx [id number] 2018 Unknown [id number] 1959 Medicare [id number] 1959 Unknown [id number] 1956 Unknown [id number] 2.16.840.1.908314.3.579.2. 175 1956 Unknown [id number] 2.16.840.1.158150.3.579.2. 175 1956 Unknown [id number] 2.16.840.1.931368.3.579.2. 175 1956 Unknown [id number] 2.16.840.1.445454.3.579.2. 593 1956 Unknown [id number] 2.16.840.1.079195.3.579.2. 593 1956 Unknown [id number] 2.16.840.1.210574.3.579.2. 173 1956 Unknown [id number] 2.16.840.1.010805.3.579.2. 173 1956 Unknown [id number] 2.16.840.1.851411.3.579.2. 173 1956 Unknown [id number] 2.16.840.1.894469.3.579.2. 173 1956 Unknown [id number] 2.16.840.1.659295.3.579.2. 173 1956 Unknown [id number] 2.16.840.1.602926.3.579.2. 9 1956 Unknown [id number] 2.16.840.1.207079.3.579.2. 9 1956 Unknown [id number] 2.16.840.1.753771.3.579.2. 1258 1956 Unknown [id number] 2.16.840.1.104010.3.579.2. 9 1956 Unknown [id number] 2.16.840.1.460000.3.579.2. 1258 1956 Unknown [id number] 2.16.840.1.730568.3.579.2. 9 1956 Unknown [id number] 2.16.840.1.550776.3.579.2. 1258 1956 Unknown [id number] 2.16.840.1.190161.3.579.2. 9 1956 Unknown [id number] 2.16.840.1.317626.3.579.2. 1259 Social History Date Type Detail Facility Start: 09-04-2019 End: 03-14-2024 Tobacco smoking status NHIS Never smoker [place] Start: 09-04-2019 End: 03-12-2025 Alcohol intake Ex-drinker (finding) [facility] Start: 1955 Sex Assigned At Not on file [place] Start: 05-20-2024 End: 12-26-2024 Sex Assigned At [facility] Start: 1955 Sex Assigned At Female F [facility] Start: 03-14-2024 Tobacco use and exposure Smokeless tobacco non-user [facility] Start: 08-23-2024 End: 11-20-2024 Alcoholic beverage intake Current drinker of alcohol (finding) [facility] Start: 05-20-2024 End: 12-26-2024 History of Social function [facility] How [...] Daily Start: 03-14-2024 Clinical Notes 08-02-2023 to 03-12-2025 TANIYA KENNEY - 03/12/2025 3:20 PM EDSandra Castillo NP - 03/12/2025 3:20 PM Karyn Castillo, FABIOLA - 03/12/2025 7:18 AM Karyn Castillo NP - 03/12/2025 7:17 AM EDTPatient Instructions Note Date & Type Note Facility 03-12-2025 History of Presen t illness Narrative Pt would like a vit D refill 02 stats range 89-93 wheezing Pt states she does not feel SOB or tightness in her chest Images from the original note were not [...] Size: Large adult) Pulse 81 Temp 98 F (Temporal) Resp 19 Wt 194 lb 12.8 oz SpO2 93% BMI 33.44 kg/m Smoking Status Never BSA 2 m Physical Exam Vitals and nursing note [...] Other Relevant Orders Vitamin D 25 hydroxy Associated Problem(s): Anxiety and depression (CMS/HCC) Is currently taking lexapro Associated Problem(s): Hypothyroidism (CMS/HCC) Thyroid levels from 11/09 are stable Current dose : levo 112mcg daily Associated Problem(s): Class 1 obesity due to excess calories in adult Discussed with patient their BMI (actual, verses recommended). We have also discussed lifestyle modifications: attempts to perform physical activity as chronic conditions allow, also to monitor dietary intake: increasing protein/fruits/veggies and lowering carb intake (unless contraindicated). Limit sodas, juices, and sugary drinks. Currently takes GLP 1 for diabetes documented in this encounter [facility] 03-12-2025 Instructions Monika Castillo NP - 03/12/2025 3:20 PM EDT Increase escitalopram to 20mg documented in this encounter [facility] 12-26-2024 History of Presen t illness Narrative Associated Problem(s): Type 2 diabetes mellitus with other circulatory complications ([facility]) During the appointment today all pertinent labs, [...] today include: Insulin instructions and Dietary education Images from the original note were not included. Tanya Blake is a 69 y.o. female presents with chief complaint of Diabetes HPI: Diabetes Mellitus Follow-up: Tanya Blake is here for follow-up evaluation of diabetes mellitus. The initial diagnosis of diabetes was made around 2020 Complications include: none She has been checking her blood glucose 2-3 times a week. Last A1c: 6.6 (08/23/24) Eye exam: 2022 [employer] [facility] Current concerns include: BG levels: 145-188 fasting or 1-2 hours after a meal. Diet: watching carbs and portions sizes Drinks: water, coffee with milk or half and half Exercise: not recent since she fell on the ice 3-4 weeks ago. Has not been as active due to this but is getting better. Just bought a treadmill to start using right before her fall. 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) ([facility]) ([facility]) Acute bloody pericarditis Coxsackie virus infection Pericardial effusion Primary hypertension ([facility]) Anxiety and depression ([facility]) Encounter for screening mammogram for malignant neoplasm of breast CVA (cerebral vascular accident) ([facility]) Encounter for subsequent annual wellness visit (AWV) in Medicare patient Class 1 obesity due to excess calories in adult Chronic left shoulder pain alf (current) use of insulin ([facility]) Other specified diabetes mellitus without complications ([facility]) Hypocalcemia Vitamin D deficiency Social History Tobacco Use Smoking status: Never Smokeless tobacco: Never Vaping Use Vaping status: Never Used Substance Use Topics Alcohol use: Not Currently Comment: drinks caffine Drug use: Never No Known Allergies Synopsis [facility] 12/26/2024 10/24/2024 15:18 09/27/2024 23:00 Antidiabetic medications glipiZIDE 10 mg Daily PO 10 mg Daily PO 10 mg Daily PO Insulin Glargine 24 Units Nightly SC 24 Units Nightly SC 24 Units Nightly SC Semaglutide 0.5 mg q7 days SC (2 MG/3ML SOPN) Inject 0.5 mg under the skin every 7 (seven) days Inject 0.5 mg under the skin every 7 (seven) days Labs [facility] HEMOGLOBIN A1C/HEMOGLOBIN.TOTAL:MFR:PT:BLD:QN: 6.9 Outpatient prescription Medication marked as long-term Patient-reported The ASCVD Risk score (Grupo OMER, et al., 2019) failed to calculate for the following reasons: Risk score cannot be calculated because patient has a medical history suggesting prior/existing ASCVD REVIEW OF SYMPTOMS: Review of Systems Constitutional: Negative for appetite change, fatigue and unexpected weight change. Eyes: Negative for visual disturbance. Respiratory: Negative for cough, shortness of breath and wheezing. Cardiovascular: Negative for chest pain, palpitations and leg swelling. Neurological: Negative for numbness. Endocrine: Negative for polydipsia, polyphagia and polyuria. OBJECTIVE: 12/26/2024 11:02 AM 10/24/2024 2:51 PM 08/23/2024 10:18 AM Vitals BMI 32.96 kg/m2 32.82 kg/m2 31.93 kg/m2 Systolic 122 138 136 Diastolic 64 80 82 Heart Rate 73 78 60 Temp 97.9 F 98.8 F 97.9 F Resp 18 Height (in) 5' 4 5' 4 5' 4 Weight (lb) 192 191.2 186 Visit Report Report Report Report Physical [...] 2 diabetes mellitus with other circulatory complications ([facility]) During the appointment today all pertinent labs, [...] today include: Insulin instructions and Dietary education Relevant Orders POCT glycosylated hemoglobin (Hb A1C) docked device (Completed) 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 Patient's Medications New Prescriptions No medications on file Previous Medications AMLODIPINE (NORVASC) 10 MG TABLET Take 1 tablet (10 mg) by mouth Daily ASPIRIN 81 PO Take 81 mg by mouth Daily ATORVASTATIN (LIPITOR) 80 MG TABLET Take 1 tablet (80 mg) by mouth at bedtime BD PEN NEEDLE LAUREN 2ND GEN 32G X 4 MM MISC Inject 1 each under the skin Daily CARVEDILOL (COREG) 25 MG TABLET Take 1 tablet (25 mg) by mouth in the morning and 1 tablet (25 mg) in the evening. Take with meals. CHOLECALCIFEROL (VITAMIN D-3) 125 MCG (5000 UT) CAPSULE Take 1 capsule (125 mcg) by mouth Daily CLOPIDOGREL (PLAVIX) 75 MG TABLET Take 1 tablet (75 mg) by mouth Daily ESCITALOPRAM (LEXAPRO) 10 MG TABLET Take 1 tablet (10 mg) by mouth Daily GLIPIZIDE (GLUCOTROL) 10 MG TABLET Take 1 tablet (10 mg) by mouth Daily INSULIN GLARGINE (LANTUS SOLOSTAR) 100 UNIT/ML PEN Inject 24 Units under the skin at bedtime LEVOTHYROXINE (SYNTHROID, LEVOXYL) 112 MCG TABLET Take 1 tablet (112 mcg) by mouth in the morning. Take before meals. SEMAGLUTIDE,0.25 OR 0.5MG/DOS, (OZEMPIC, 0.25 OR 0.5 MG/DOSE,) 2 MG/3ML SOLUTION PEN-INJECTOR Inject 0.5 mg under the skin every 7 (seven) days Modified Medications No medications on file Discontinued Medications PEN NEEDLE 33G X 4 MM MISC Injections subcutaneous daily I have reviewed and reconciled the history and medication list with the patient today. documented in this encounter [facility] 11-20-2024 History of Presen t illness Narrative Associated Order(s): L Inj/Asp: L subacromial bursa Post-Procedure Diagnose(s): Impingement of left shoulder Images from the original note were not included. NAME: Tanya Blake : 1955 HISTORY OF PRESENT ILLNESS: NEW PT Tanya Blake is an 69 y.o. @ female. (NEW PT) MONIKA CASTILLO REFERRAL. LT SHOULDER PAIN ~4 MTHS (07/2024), SLIPPED ON STEPS AND CAME BACK AND HIT WALL. XRAY TODAY EPIC 11/20/24 PAIN ANTERIOR SHOULDER. INTERMITTENT, DEPENDING ON WHAT SHE IS DOING. CAN RADIATE DOWN TO FOREARM. ALSO FEELS OCCAS PULL IN CHEST. +TYL ARTHRITIS DAILY. +ICE PRN. UNABLE TO LAY ON IT. LIMITED ROM. TIGHTNESS. DENIES N/T. OCCAS GETS PAIN IN THUMB. DENIES SWELLING. DENIES POPPING/GRINDING. NOTES HER HAND WILL RANDOMLY SHAKE AT TIMES. 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 PAST MEDICAL HISTORY: Past Medical History: Diagnosis Date Anxiety Depression (CMS/HCC) Diabetes mellitus (CMS/HCC) Disease of thyroid gland (CMS/HCC) Hypertension (CMS/HCC) Inflammatory bowel disease SOB (shortness of breath) PAST SURGICAL HISTORY: Past Surgical History: Procedure Laterality Date FOOT SURGERY HYSTERECTOMY KNEE SURGERY Right PERICARDIUM SURGERY 08/18/2019 SOCIAL HISTORY: Social History Occupational History Not on file Tobacco Use Smoking status: Never Smokeless tobacco: Never Vaping Use Vaping status: Never Used Substance and Sexual Activity Alcohol use: Yes Comment: drinks caffine Drug use: Never Sexual activity: Not Currently ALLERGIES: No Known Allergies HOME MEDICATIONS: Current Outpatient Medications Medication Instructions amLODIPine (NORVASC) 10 mg, Oral, Daily ASPIRIN 81 PO 81 mg, Daily atorvastatin (LIPITOR) 80 mg, Oral, Nightly BD Pen Needle Lauren 2nd Gen 32G X 4 MM misc 1 each, Daily carvedilol (COREG) 25 mg, Oral, 2 times daily with meals cholecalciferol (VITAMIN D-3) 125 mcg, Oral, Daily clopidogrel (PLAVIX) 75 mg, Oral, Daily escitalopram (LEXAPRO) 10 mg, Oral, Daily glipiZIDE (GLUCOTROL) 10 mg, Oral, Daily Lantus SoloStar 24 Units, Subcutaneous, Nightly levothyroxine (SYNTHROID, LEVOXYL) 112 mcg, Oral, Daily before breakfast Ozempic (0.25 or 0.5 MG/DOSE) 0.5 mg, Every 7 days pen needle 33G x 4 mm misc Injections subcutaneous daily REVIEW OF SYSTEMS: Review of Systems Vitals: There is no height or weight on file to calculate BMI. Tobacco Use: Low Risk (11/20/2024) Patient History Smoking Tobacco Use: Never Smokeless Tobacco Use: Never Passive Exposure: Not on file Alcohol Use: Not At Risk (05/20/2024) AUDIT-C Frequency of Alcohol Consumption: 2-4 times a month Average Number of Drinks: 1 or 2 Frequency of Binge Drinking: Never PHYSICAL EXAM: Shoulder Musculoskeletal Exam Inspection Left Left shoulder inspection is normal. Ecchymosis: none Peripheral edema: none Atrophy: none Masses: none Palpation Left Crepitus: no crepitus Increased warmth: none Tenderness: present Anterior shoulder: mild AC joint: moderate Lateral arm: moderate Range of Motion Right Right shoulder active abduction: + pain passing 90 degrees. Left Left shoulder range of motion is normal. Active ROM: pain. Passive ROM: pain. Strength Left External rotation: 5/5. Internal rotation: 5/5. Abduction: 5/5. Biceps: 5/5. Triceps: 5/5. Neurovascular Left Radial pulse: normal and 2+ Capillary refill: <3 sec Axillary nerve sensory distribution: normal Scapula Left Left shoulder scapula is normal. Position: normal Winging: none Special Tests Left Rotator Cuff Signs Painful arc test: positive Biceps/jam Signs Speed's test: negative AC Joint Signs Active horizontal adduction pain: positive General Constitutional: appears stated age Neurological: alert and oriented x3 IMAGING: XR shoulder 2+ views left Imaging Result: 11/20/2024: external AP, Grashey and scapular Y of left shoulder show humeral head to be well centered in the glenoid fossa without evidence of fracture or dislocation or degeneration. The acromioclavicular joint showed global degenerative changes with decreased joint space and marginal osteophytes noted. Lung zavala visualized on today's x-ray showed excellent lung markings. Impression no acute bony process left shoulder. Mary Kay Womack SENIOR LINUX SYSTEMS ENGINEER-SANFORIZER L Inj/Asp: L subacromial bursa on 11/20/2024 4:23 PM Indications: pain Details: 20 G needle, ultrasound-guided lateral approach Medications: 40 mg methylPREDNISolone acetate 40 MG/ML Outcome: tolerated well, no immediate complications Site cleaned with isopropyl alcohol Procedure, treatment alternatives, risks and benefits explained, specific risks discussed. Consent was given by the patient. Orders Placed This Encounter Procedures L Inj/Asp This order was created via procedure documentation XR shoulder 2+ views left Order Specific Question: Reason for exam: Answer: pain ASSESSMENT: ICD-10-CM 1. Impingement of left shoulder M25.812 2. Left shoulder pain, unspecified chronicity M25.512 XR shoulder 2+ views left 3. Arthritis of left acromioclavicular joint M19.012 PLAN: I reviewed xray findings with the patient and discussed treatment options, answered questions. I discussed with the patient the option of an injection. I advised the patient of risks associated with an injection including a reaction to medication, infection, failure to improve and possible worsening. The patient demonstrated understanding. Patient requesting injection. Skin Cleansed with alcohol swab. Ultrasound guidance to the area was performed in a limited fashion. Surrounding bone, tendon and soft tissues identified. Utilizing aseptic technique patient given 40mg Depomedrol was injected. Patient tolerated this well. Neurovasc intact s/p injection. Needle localization with image capture saved to the permanent record. This process facilitates more accurate injection placement which improves efficacy and reduces post injection reactions. Post injection care instructions discussed. She will follow up in 4 weeks for RCK. Questions answered in laymen terms at the bedside. The diagnosis, home exercise plan and any ongoing restrictions/ recommendations reviewed. If unable to be reached in office, I recommend evaluation at nearest Emergency Room if any symptoms worsened or new symptoms develop for requiring urgent evaluation. documented in this encounter [facility] 11-13-2024 Telephone encount er Note Sent in script for vit d 3 [facility] 11-13-2024 Miscellaneous Notes Formattin g of this note might be different from the original. Sent in script for vit d 3 documented in this encounter [facility] 10-24-2024 History of Presen t illness Narrative [...] >55% Associated Problem(s): CVA (cerebral vascular accident) ([facility]) Plavix and asa Pt provider who takes [...] List Items Addressed This Visit Hypothyroidism (CMS/HCC) Is currently taking her levo, however is feeling more fatigue Will check labs to see where TSH stands also check CBC and chem 8 Relevant Medications levothyroxine (Synthroid, Levoxyl) 112 MCG tablet Other Relevant Orders TSH T4, free Type 2 diabetes mellitus with other circulatory complications ([facility]) Relevant Medications atorvastatin (Lipitor) 80 MG tablet Other Relevant Orders Basic metabolic panel 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) ([facility]) ([facility]) Check blood sugars daily, notify if [...] not want to follow with cardiology in [place] Had stress and ECHO late 2022, EF >55% Primary hypertension ([facility]) - Primary Please check blood pressure daily and record DASH diet Limit caffeine Take medication as directed Contact office if chest pain, pressure, dizziness, shortness of breath, swelling legs Recommend slow position changes Current meds: amlodipine, carvedilol, Relevant Medications amLODIPine (Norvasc) 10 MG tablet carvedilol (Coreg) 25 MG tablet Anxiety and depression ([facility]) Is currently taking lexapro, no dose change at this time Has a new puppy which is helping Relevant Medications escitalopram (Lexapro) 10 MG tablet CVA (cerebral vascular accident) ([facility]) Plavix and asa Relevant Medications clopidogrel (Plavix) 75 MG tablet Other Relevant Orders CBC and differential Chronic left shoulder pain Suspect more bursitis, not cuff pathology Had ortho appt cancelled it, she will call them back to schedule alf (current) use of insulin ([facility]) Other specified diabetes mellitus without complications ([facility]) Cont with dr byers Associated Problem(s): Anxiety and depression ([facility]) Is currently taking lexapro, no dose change at this time Has a new puppy which is helping Associated Problem(s): Other specified diabetes mellitus without complications ([facility]) Cont with dr byers Associated Problem(s): 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) ([facility]) Check blood sugars daily, notify if [...] insulin, glipizide, statin Associated Problem(s): Primary hypertension ([facility]) Please check blood pressure daily and record DASH diet Limit caffeine Take medication as directed Contact office if chest pain, pressure, dizziness, shortness of breath, swelling legs Recommend slow position changes Current meds: amlodipine, carvedilol, documented in this encounter [facility] 10-24-2024 Instructions Monika Castillo NP - 10/24/2024 2:40 PM EST Check thyroid lab to make sure thyroid is ok, Call ortho for appt documented in this encounter [facility] 08-23-2024 History of Presen t illness Narrative [...] Last A1c: 7.3 (05/23/24) Eye exam: 2022 [facility] Current concerns include: Bg have been improving overall between 150-170 Diet: watching carbs and portions sizes, Snacks: carrots with ranch, crackers with peanut butter, strawberries and rasperries Drinks: coffee with milk or half and half, water Exercise: none Hypoglycemia: none SUBJECTIVE: PROBLEM LIST SOCIAL ALLERGIES: Patient Active Problem List Diagnosis Hypothyroidism (CMS/HCC) Type 2 diabetes mellitus with other circulatory complications ([facility]/HCC) 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) ([facility]) Acute bloody pericarditis Coxsackie virus infection Pericardial effusion Primary hypertension ([facility]/HCC) URI, acute Anxiety and depression ([facility]) Encounter for screening mammogram for malignant neoplasm of breast CVA (cerebral vascular accident) ([facility]) Encounter for subsequent annual wellness visit (AWV) in Medicare patient Class 1 obesity due to excess calories in adult Chronic left shoulder pain Long-term insulin use ([facility]) Social History Tobacco Use Smoking status: [...] 2 diabetes mellitus with other circulatory complications ([facility]) During the appointment today all pertinent labs, [...] 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 Patient's Medications New Prescriptions No medications on file Previous Medications AMLODIPINE (NORVASC) 10 MG TABLET Take 1 tablet (10 mg) by mouth Daily ATORVASTATIN (LIPITOR) 80 MG TABLET Take 1 tablet (80 mg) by mouth at bedtime BD PEN NEEDLE LAUREN 2ND GEN 32G X 4 MM MISC [...] the patient today. documented in this encounter [facility] 11-02-2023 Evaluation note Encounter Date Diagnosis Assessment Notes Oct, Depression with anxiety (ICD-10 - F41.8) [employer] Other 12-12-2023 Evaluation note* Encounter Date Diagnosis Assessment Notes Treatment Notes Treatment Clinical Notes Sep, Bronchitis (ICD-10 - J40) discussed her hx of several episodes of pneumonia and her daughter's decreased immune system. No crackles or wheezing on exam. Will treat empirically before her symptoms worsen. If they do, she understands to call for CXR or go to ER. [employer] Other 10-18-2023 Evaluation note* Encounter Date Diagnosis Assessment Notes Treatment Notes Treatment Clinical Notes Jul, Depression with anxiety (ICD-10 - F41.8) [employer] Other Evaluation note* Diagnosis Pleural effusion on left Unspecified pleural effusion documented in this encounter [employer] Phone: evaluation note* Diagnosis Coxsackie virus infection Coxsackievirus infection in conditions classified elsewhere and of unspecified site documented in this encounter [employer] Phone: evaluation [employer]No [employer] Other Evaluation note* Diagnosis Onset Date Resolution Status Type II diabetes mellitus [facility] Work Phone: Evaluation note* Diagnosis 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/HCC)- Primary 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) ([facility]/HCC) Anxiety and depression (CMS/HCC)- Primary Hypothyroidism, unspecified [...] (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) (HCC) ([facility]/HCC) 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) ([facility])- Primary Type 2 diabetes mellitus with other circulatory complications ([facility]/HCC) Long-term insulin use ([facility]) documented in this encounter [facility] Healthcare[facility]* Diagnosis 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/HCC)- Primary 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) ([facility]) Anxiety and depression ([facility]/HCC)- Primary Hypothyroidism, unspecified type (CMS/HCC) 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/HCC) Primary hypertension ([facility]/HCC) Unspecified essential hypertension URI, acute Acute upper [...] (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) (HCC) ([facility]/HCC) 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) ([facility]/HCC)- Primary 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/HCC) Long-term insulin use (CMS/HCC) Primary hypertension ([facility]/HCC)- Primary Unspecified essential hypertension Type 2 diabetes mellitus with other circulatory complications ([facility]/HCC) alf (current) use of insulin (CMS/HCC) Other specified diabetes mellitus without complications (CMS/HCC) 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) Anxiety and depression (CMS/HCC) Hypothyroidism, unspecified type (CMS/HCC) Pericardial effusion Unspecified disease of pericardium Cerebrovascular accident (CVA), unspecified mechanism (CMS/HCC) Chronic left shoulder pain Pain in joint, shoulder region documented in this encounter [facility]* Diagnosis 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/HCC)- Primary 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) ([facility]) Anxiety and depression (CMS/HCC)- Primary Hypothyroidism, unspecified type (CMS/HCC) 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/HCC) Primary hypertension ([facility]/HCC) Unspecified essential hypertension URI, acute Acute upper [...] (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) (HCC) ([facility]/HCC) 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) ([facility]/HCC)- Primary 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/HCC) Long-term insulin use (/HCC) Primary hypertension (CMS/HCC)- Primary Unspecified essential hypertension 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/HCC) alf (current) use of insulin (CMS/HCC) Other specified diabetes mellitus without complications (CMS/HCC) 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) ([facility]/HCC) Anxiety and depression (CMS/HCC) Hypothyroidism, unspecified type (CMS/HCC) Pericardial effusion Unspecified disease of pericardium Cerebrovascular accident (CVA), unspecified mechanism (CMS/HCC) Chronic left shoulder pain Pain in joint, shoulder region Hypocalcemia- Primary documented in this encounter [facility]* Diagnosis 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/HCC)- Primary 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) ([facility]) Anxiety and depression (CMS/HCC)- Primary Hypothyroidism, unspecified type (CMS/HCC) 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/HCC) Primary hypertension ([facility]/HCC) Unspecified essential hypertension URI, acute Acute upper [...] (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) (HCC) ([facility]/HCC) 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) ([facility])- Primary 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/HCC) Long-term insulin use ([facility]) Primary hypertension ([facility]/HCC)- Primary Unspecified essential hypertension 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/HCC) technician terminal and repeater (current) use of insulin ([facility]) Other specified diabetes mellitus without complications ([facility]/HCC) 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) ([facility]) Anxiety and depression ([facility]) Hypothyroidism, unspecified type (CMS/HCC) Pericardial effusion Unspecified disease of pericardium Cerebrovascular accident (CVA), unspecified mechanism ([facility]) Chronic left shoulder pain Pain in joint, shoulder region Vitamin D deficiency- Primary documented in this encounter [facility]* Diagnosis 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/HCC)- Primary 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) ([facility]) Anxiety and depression ([facility]/HCC)- Primary Hypothyroidism, unspecified type ([facility]/HCC) 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/HCC) Primary hypertension ([facility]) Unspecified essential hypertension URI, acute Acute upper [...] diabetes mellitus with other circulatory complications (CMS/HCC) technician terminal and repeater (current) use of insulin (CMS/HCC) Other specified diabetes mellitus without complications (CMS/HCC) 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) Anxiety and depression (CMS/HCC) Hypothyroidism, unspecified type (CMS/) Pericardial effusion Unspecified disease of pericardium Cerebrovascular accident (CVA), unspecified mechanism (CMS/) Chronic left shoulder pain Pain in joint, shoulder region Impingement of left shoulder- Primary Left shoulder pain, unspecified chronicity Arthritis of left acromioclavicular joint documented in this encounter [facility]* Diagnosis 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/)- Primary 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) ([facility]/) Anxiety and depression (/)- Primary Hypothyroidism, unspecified type (/) Type 2 diabetes mellitus with other circulatory complications (/) Primary hypertension ([facility]/) Unspecified essential hypertension URI, acute Acute upper [...] (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) (HCC) (/HCC) 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) (/HCC)- Primary 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/HCC) Long-term insulin use (/HCC) Primary hypertension (CMS/HCC)- Primary Unspecified essential hypertension 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/HCC) technician terminal and repeater (current) use of insulin (/) Other specified diabetes mellitus without complications (/HCC) 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) Anxiety and depression (CMS/HCC) Hypothyroidism, unspecified type (CMS/HCC) Pericardial effusion Unspecified disease of pericardium Cerebrovascular accident (CVA), unspecified mechanism (CMS/HCC) Chronic left shoulder pain Pain in joint, shoulder region Vitamin D deficiency documented in this encounter [facility]Evaluation note* Diagnosis 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/HCC)- Primary 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) ([facility]/HCC) Anxiety and depression (CMS/HCC)- Primary Hypothyroidism, unspecified [...] (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) (HCC) ([facility]/HCC)- Primary 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/HCC) Long-term insulin use (CMS/HCC) Primary hypertension (CMS/HCC)- Primary Unspecified essential hypertension 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/HCC) alf (current) use of insulin (CMS/HCC) Other specified diabetes mellitus without complications (CMS/HCC) 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) ([facility]/HCC) Anxiety and depression (CMS/HCC) Hypothyroidism, unspecified type (CMS/HCC) Pericardial effusion Unspecified disease of pericardium Cerebrovascular accident (CVA), unspecified mechanism (CMS/HCC) Chronic left shoulder pain Pain in joint, shoulder region Vitamin D deficiency documented in this encounter [facility]* Diagnosis 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/HCC)- Primary 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) ([facility]/HCC) Anxiety and depression (CMS/HCC)- Primary Hypothyroidism, unspecified type (CMS/HCC) 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/HCC) Primary hypertension (CMS/[facility]) Unspecified essential hypertension URI, acute Acute upper [...] 2 diabetes mellitus with other circulatory complications ([facility]/HCC) 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) ([facility]) 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) ([facility])- Primary Type 2 diabetes mellitus with other circulatory complications ([facility]) Long-term insulin use ([facility]) Primary hypertension ([facility])- Primary Unspecified essential hypertension Type 2 diabetes mellitus with other circulatory complications ([facility]) technician terminal and repeater (current) use of insulin ([facility]) Other specified diabetes mellitus without complications ([facility]) 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) ([facility]) ([facility]) Anxiety and depression ([facility]) Hypothyroidism, unspecified type ([facility]) Pericardial effusion Unspecified disease of pericardium Cerebrovascular accident (CVA), unspecified mechanism ([facility]) Chronic left shoulder pain Pain in joint, shoulder region 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) ([facility])- Primary Type 2 diabetes mellitus with other circulatory complications ([facility]) technician terminal and repeater (current) use of insulin ([facility]) documented in this encounter [facility]* Diagnosis Type 2 diabetes mellitus with other circulatory complications- Primary 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) ([facility]) Anxiety and depression ([facility])- Primary Hypothyroidism, unspecified type ([facility]) Type 2 diabetes mellitus with other circulatory complications Primary hypertension ([facility]) Unspecified essential hypertension URI, acute Acute upper [...] 2 diabetes mellitus with other circulatory complications 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) ([facility]) 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) ([facility])- Primary Type 2 diabetes mellitus with other circulatory complications Long-term insulin use ([facility]) Primary hypertension ([facility])- Primary Unspecified essential hypertension Type 2 diabetes mellitus with other circulatory complications alf (current) use of insulin ([facility]) Other specified diabetes mellitus without complications 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) ([facility]) Anxiety and depression ([facility]) Hypothyroidism, unspecified type ([facility]) Pericardial effusion Unspecified disease of pericardium Cerebrovascular accident (CVA), unspecified mechanism ([facility]) Chronic left shoulder pain Pain in joint, shoulder region 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) ([facility])- Primary Type 2 diabetes mellitus with other circulatory complications alf (current) use of insulin ([facility]) Primary hypertension ([facility]) Unspecified essential hypertension documented in this encounter [facility]* Diagnosis Type 2 diabetes mellitus with other circulatory complications- Primary 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) ([facility]) Anxiety and depression ([facility])- Primary Hypothyroidism, unspecified type ([facility]) Type 2 diabetes mellitus with other circulatory complications Primary hypertension ([facility]) Unspecified essential hypertension URI, acute Acute upper [...] 2 diabetes mellitus with other circulatory complications 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) ([facility]) 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) ([facility])- Primary Type 2 diabetes mellitus with other circulatory complications Long-term insulin use ([facility]) Primary hypertension ([facility])- Primary Unspecified essential hypertension Type 2 diabetes mellitus with other circulatory complications alf (current) use of insulin ([facility]) Other specified diabetes mellitus without complications 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) ([facility]) Anxiety and depression ([facility]) Hypothyroidism, unspecified type (CMS/HCC) Pericardial effusion Unspecified disease of pericardium Cerebrovascular accident (CVA), unspecified mechanism ([facility]/HCC) Chronic left shoulder pain Pain in joint, shoulder region 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) ([facility]) ([facility])- Primary Type 2 diabetes mellitus with other circulatory complications technician terminal and repeater (current) use of insulin (CMS/HCC) Anxiety and depression ([facility])- Primary Class 1 obesity due to excess calories with serious comorbidity and body mass index (BMI) of 31.0 to 31.9 in adult Hypothyroidism, unspecified type ([facility]) Encounter for screening mammogram for malignant neoplasm of breast Primary hypertension ([facility]) Unspecified essential hypertension Type 2 diabetes mellitus with other circulatory complications Vitamin D deficiency documented in [facility] encounter [facility] [...] FOOT SURGERY Hospitalization History SEE SURGICAL HX [place] [employer] Other Hospital Discharge instructionsAmbulatory Orders* Referral to Diabetes Management Time Frame: 01/25/24, Location: [facility] Work Phone: Assessments Diagnosis Coxsackie virus infection Coxsackievirus infection in conditions classified elsewhere and of unspecified site Diagnosis S/P pericardial window creation Pericardial effusion Unspecified disease of pericardium Advance Directives No Advanced Directives Records FoundDocuments on File Type Date Recorded 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 Advance Directives and Living Will Power of Quarter Folder Latest Code Status on File Code Status Date Activated Date Inactivated Comments Full Code 08/21/2019 9:02 AM 08/24/2019 9:24 PM Full Code 08/16/2019 8:23 AM 08/21/2019 9:01 AM Full Code 08/12/2019 10:41 PM 08/16/2019 8:23 AM Documents on File Type Date Recorded 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 Advance Directives and Living Will Power of Quarter Folder Latest Code Status on File Code Status Date Activated Date Inactivated Comments Full Code 08/21/2019 9:02 AM 08/24/2019 9:24 PM Full Code 08/16/2019 8:23 AM 08/21/2019 9:01 AM Full Code 08/12/2019 10:41 PM 08/16/2019 8:23 AM Advance Directive Response Recorded Date/ Time Advance Directives No January 24 10:20am Summary Purpose Family History No Family History Records Found Relationship Condition Age at Onset Recorded Date/T vega daughter Malignant neoplasm Unknown father Unknown Heart disease Unknown Not Specified Unknown Reason for Referral Status Reason Specialty Diagnoses / Procedures Re ferred By Contact Referred To Contact Closed Cardiology Diagnoses S/P pericardial window creation Pericardial effusion Procedures ECHO Limited HC 2-D ECHOCARDIOGRAM LTD OR FOLL HC 2D ECHO WITHOUT CONTRAST - WITH DOP/COLOR FLOW Manolo Conklin PA [address] [address] Chief Complaint and Reason for Visit Chief Complaint Amb Documentation BS discussion Reason for Visit Type II diabetes colten litus Additional Source Comments INFORMATION SOURCE (unrecogn ized section and content) DATE CREATED AUTHOR 11/02/2019 [facility] DATE CREATED AUTHOR AUTHOR'S ORGANIZ ATION 03/24/2023 [facility] DATE CREATED AUTHOR AUTHOR'S ORGANIZ ATION 08/21/2023 [facility] DATE CREATED AUTHOR AUTHOR'S ORGANIZ ATION 03/15/2025 [facility] EPIC Reason for Visit (unrecogniz ed section and content) Status Reason Specialty Diagnoses / Procedures Re ferred By Contact Referred To Contact Closed Cardiology Diagnoses S/P pericardial window creation Pericardial effusion Procedures ECHO Limited HC 2-D ECHOCARDIOGRAM LTD OR FOLL HC 2D ECHO WITHOUT CONTRAST - WITH DOP/COLOR FLOW Manolo Conklin PA [address] [address] Reason Comments Diabetes Reason Comments Anxiety Reason Comments Pain Reason Onset Date Comments Med Refill 12/06/2024 Reason Comments Med Refill Reason Comments Hypertension Care Teams (unrecognized sec tion and content) [...] January 25, 2024 End: January 25, 2024 Telephone Sales Representative Relationship Specialty Start Date End Date Paul Lewis MD [address] [place] [address] PCP - General Family Medicine 05/01/24 Monika Castillo NP [address] [place] [address] Nurse Practitioner Family Medicine 04/03/24 Monika Castillo NP [address] [place] [address] Nurse Practitioner Family Medicine 05/01/24 Telephone Sales Representative Relationship Specialty Start Date End Date Paul Lewis MD [address] [place] [address] PCP - General Family Medicine 05/01/24 Monika Castillo NP [address] [place] [address] Nurse Practitioner Family Medicine 04/03/24 Monika Castillo NP [address] [place] [address] Nurse Practitioner Family Medicine 05/01/24 Telephone Sales Representative Relationship Specialty Start Date End Date Paul Lewis MD [address] [place] [address] PCP - General Family Medicine 05/01/24 Monika Castillo NP [address] [place] [address] Nurse Practitioner Family Medicine 04/03/24 Monika Castillo NP [address] [place] [address] Nurse Practitioner Family Medicine 05/01/24 Telephone Sales Representative Relationship Specialty Start Date End Date Paul Lewis MD [address] [place] [address] PCP - General Family Medicine 05/01/24 Monika Castillo NP [address] [place] [address] Nurse Practitioner Family Medicine 04/03/24 Monika Castillo NP [address] [place] [address] Nurse Practitioner Family Medicine 05/01/24 Telephone Sales Representative Relationship Specialty Start Date End Date Paul Lewis MD [address] [place] [address] PCP - General Family Medicine 05/01/24 Monika Castillo NP [address] [place] [address] Nurse Practitioner Family Medicine 04/03/24 Monika Castillo NP [address] [place] [address] Nurse Practitioner Family Medicine 05/01/24 Telephone Sales Representative Relationship Specialty Start Date End Date Paul Lewis MD [address] [place] [address] PCP - General Family Medicine 05/01/24 Monika Castillo NP [address] [place] [address] Nurse Practitioner Family Medicine 04/03/24 Monika Castillo NP [address] [place] [address] Nurse Practitioner Family Medicine 05/01/24 Telephone Sales Representative Relationship Specialty Start Date End Date Paul Lewis MD [address] [place] [address] PCP - General Family Medicine 05/01/24 Monika Castillo NP [address] [place] [address] Nurse Practitioner Family Medicine 04/03/24 Monika Castillo NP [address] [place] [address] Nurse Practitioner Family Medicine 05/01/24 Telephone Sales Representative Relationship Specialty Start Date End Date Paul Lewis MD [address] [place] [address] PCP - General Family Medicine 05/01/24 Monika Castillo NP [address] [place] [address] Nurse Practitioner Family Medicine 04/03/24 Monika Castillo NP [address] [place] [address] Nurse Practitioner Family Medicine 05/01/24 Telephone Sales Representative Relationship Specialty Start Date End Date Paul Lewis MD [address] [place] [address] PCP - General Family Medicine 05/01/24 Monika Castillo NP [address] [place] [address] Nurse Practitioner Family Medicine 04/03/24 Monika Castillo NP [address] [place] [address] Nurse Practitioner Family Medicine 05/01/24 Telephone Sales Representative Relationship Specialty Start Date End Date Paul Lewis MD [address] [place] [address] PCP - General Family Medicine 05/01/24 Monika Castillo NP [address] [place] [address] Nurse Practitioner Family Medicine 04/03/24 Monika Castillo NP [address] [place] [address] Nurse Practitioner Family Medicine 05/01/24 Telephone Sales Representative Relationship Specialty Start Date End Date Paul Lewis MD [address] [place] [address] PCP - General Family Medicine 05/01/24 Monika Castillo NP [address] [place] [address] Nurse Practitioner Family Medicine 04/03/24 Monika Castillo NP [address] [place] [address] Nurse Practitioner Family Medicine 05/01/24 Telephone Sales Representative Relationship Specialty Start Date End Date Paul Lewis MD [address] [place] [address] PCP - General Family Medicine 05/01/24 Monika Castillo NP [address] [place] [address] Nurse Practitioner Family Medicine 04/03/24 Monika Castillo NP [address] [place] [address] Nurse Practitioner Family Medicine 05/01/24 Telephone Sales Representative Relationship Specialty Start Date End Date Paul Lewis MD [address] [place] [address] PCP - General Family Medicine 05/01/24 Monika Castillo NP [address] [place] [address] Nurse Practitioner Family Medicine 04/03/24 Monika Castillo NP [address] [place] [address] Nurse Practitioner Family Medicine 05/01/24 Goals (unrecognized [...] BE BASED ON THE PRIMARY CLINICAL RECORDS. [facility] [employer] [facility]. provides no warranty or guarantee of the accuracy or completeness of information in this document.
== END 2025-03-22 09:15 | disposition home or self-care (01) ==
LOC: LAB 09:16
PROVIDERS: PCP Nurse Practitioner; Visit Provider Nurse Practitioner
DX: E55.9 Vitamin D deficiency, unspecified (principal)
CPT/HCPCS: 36415; 82306

== ENCOUNTER 2025-05-06 09:49 | Outpatient (OUT) | payer MEDICARE, OTHER, SELFPAY ==
--- OUTSIDE RECORDS SUMMARY | 2025-05-06 09:51 | XMS_ITS | Clinical Summary ---
Author Organization [facility] Address [address], [address] [place] [address] Care Team Providers Care Malt Loader Name Role Phone Karen Oneill MD Primary Care Provider [phone] Allergies No known active allergies Medications metFORMIN [...] Annual Wellness Visit (Medicare) 09/11/2023 COVID-19 Vaccine (2023- season) 2024 Flu vaccine (#1) 05/16/2025 Hepatitis A vaccine Aged Out No longe [...] >60 >60 mL/min 08/24/2019 4:49 AM EST [email or web address] GFR >60 >60 mL/min 08/24/2019 4:49 AM EST [email or web address] GFR Comment 08/24/2019 4:49 AM EST [email or web address] Comment: Average GFR for 60-69 years old: 85 mL/min/1.73sq m Chronic Kidney Disease: <60 mL/min/1.73sq m Kidney failure: <15 mL/min/1.73sq m eGFR calculated using average adult body mass. Additional eGFR calculator available at: http://www.Pharmapod/multiple_crcl_2012.htm GFR Staging NOT REPORTED 08/24/2019 4:49 AM EST [facility] BLOOD SPECIMEN / Unknown 08/24/2019 4:49 AM EST 08/24/2019 4:59 AM EST us Man[facility] SHORT CHEMISTRY ORDERABLES Final Result Performing Organization Address [facility] Co de Phone Number [facility] [address] [place] [address] * (ABNORMAL) HEMOGLOBIN A1C (08/19/2019 7:37 AM EST) Hemoglobin A1C 7.4(H) 4.0 - 6.0 % 08/19/2019 7:37 AM EST [facility] Estimated Avg Glucose 166 mg/dL 08/19/2019 7:37 AM EST [facility] Comment: The ADA and AACC recommend providing the estimated average glucose result to permit better patient understanding of their HBA1c result. BLOOD SPECIMEN / Unknown 08/19/2019 7:37 AM EST 08/19/2019 7:51 AM EST us Laurent Flood MD CHEMISTRY ORDERABLES Final Resul t Performing Organization Address [facility] Co de Phone Number [facility] [address] [place] [address] from Last 3 Months or Most Recently Relevant to Health Maintenance Insurance MEDICARE [facility] [place] Advance Directives * Full Code (Latest Code Status on File) Date Activated Date Inactivated Comments 08/21/2019 9:02 AM 08/24/2019 9:24 PM * Full Code Date Activated Date Inactivated Comments 08/16/2019 8:23 AM 08/21/2019 9:01 AM * Full Code Date Activated Date Inactivated Comments 08/12/2019 10:41 PM 08/16/2019 8:23 AM Care Teams Malt Loader Relationship Specialty Start Date End Date Karen Oneill MD PCP - General Family Medicine 09/04/19
--- OUTSIDE RECORDS SUMMARY | 2025-05-06 09:51 | XMS_ITS | Encounter Summary ---
Author Organization [facility] Address [address] [place] [address] Care Team Providers Care High School History Teacher Name Role Phone Monika Castillo PUNCH PRESS SETTER Unavailable [phone] Paul Lewis MD Primary Care Provider [phone] Monika Castillo PUNCH PRESS SETTER Unavailable [phone] Encounter Details Date Type Department Care Team (Late st Contact Info) Description 12/26/2024 Abstract [facility] [address] [place] [address] Halle Kaur, DO [address] [facility] [address] [place] [address] Social History Tobacco Use Types Packs/Day Years [...] week 05/20/2024 How often do you attend jewish or zoroastrianism serv ices? Patient declined 05/20/2024 Active Member [...] any time in the past 12 m [facility], were you homeless or [...] Care Team (Late st Contact Info) Description 05/15/2025 10:30 AM EDT Office Visit [facility] [address] [place] [address] [place] [address] Halle Kaur DO [address] [place] [address] [place] [address] documented as of this encounter Visit Diagnoses Not on filedocumented in this encounter Additional Health Concerns Assessment Noted Time PHQ-9 Depression Total Score: 7 05/08/20 4:15 PM EDT documented as of this encounter Care Teams High School History Teacher Relationship Specialty Start Date End Date Paul Lewis MD [address] [place] [address] PCP - General Family Medicine 05/01/24 Monika Castillo NP [address] [place] [address] Nurse Practitioner Family Medicine 04/03/24 Monika Castillo NP [address] [place] [address] Nurse Practitioner Family Medicine 05/01/24 documented as of this encounter
--- OUTSIDE RECORDS SUMMARY | 2025-05-06 09:51 | XMS_ITS | Encounter Summary ---
Author Organization [facility] Address [address] [place] [address] Care Team Providers Care Scrap Materials Buyer Name Role Phone Monika Castillo SHIP OFFICER Unavailable [phone] Paul Lewis MD Primary Care Provider [phone] Monika Castillo SHIP OFFICER Unavailable [phone] Reason for Visit * Reason Comments Med Refill Encounter Details Date Type Department Care Team (Late st Contact Info) Description 10/16/2024 Refill [facility] [address] [place] [address] Monika Castillo, FABIOLA [address] [place] [address] Hypothyroidism, unspecified type Social History Tobacco Use Types Packs/Day Years [...] week 05/20/2024 How often do you attend caodaism or yazdanism serv ices? Patient declined 05/20/2024 Active Member [...] any time in the past 12 m [facility], were you homeless or living in a [place] facility (including now)? No 05/20/2024 Comments Unknown Sex [...] [address] [place] [address] [place] [address] Halle Karu DO [address] [place] [address] documented as of this encounter Visit Diagnoses Diagnosis Hypothyroidism, unspecified type documented in this encounter Additional Health Concerns Assessment Noted Time PHQ-9 Depression Total Score: 7 05/08/20 4:15 PM EDT documented as of this encounter Care Teams Scrap Materials Buyer Relationship Specialty Start Date End Date Pual Lewis MD [address] [place] [address] PCP - General Family Medicine 05/01/24 Monika Castlilo NP [address] [place] [address] Nurse Practitioner Family Medicine 04/03/24 Monika Castillo NP [address] [place] [address] Nurse Practitioner Family Medicine 05/01/24 documented as of this encounter
--- OUTSIDE RECORDS SUMMARY | 2025-05-06 09:51 | XMS_ITS | Encounter Summary ---
Author Organization [facility] Address [address] [place] [facility] [place] [address] Care Team Providers Care Newspaper Deliverer Name Role Phone Monika Castillo LABOURERS Unavailable [phone] Paul Lewis MD Primary Care Provider [phone] Monika Castillo LABOURERS Unavailable [phone] Reason for Visit * Reason Comments Med Refill Encounter Details Date Type Department Care Team (Late st Contact Info) Description 09/26/2024 Refill [facility] [address] [place] [address] Halle Kaur, DO [address] [facility] [address] [place] [address] Primary hypertension Social History Tobacco Use Types Packs/Day [...] week 05/20/2024 How often do you attend yazidism or adventist serv ices? Patient declined 05/20/2024 Active Member [...] any time in the past 12 m onths, were you homeless or living in a alf (including now)? No 05/20/2024 Comments Unknown Sex [...] 05/15/2025 10:30 AM EDT Office Visit [facility] [address] [place] [address] [place] [address] Halle Kaur DO [address] [place] [address] documented as of this encounter Visit Diagnoses Diagnosis Primary hypertension Unspecified essential hypertension documented in this encounter Additional Health Concerns Assessment Noted Time PHQ-9 Depression Total Score: 7 05/08/20 4:15 PM EDT documented as of this encounter Care Teams Newspaper Deliverer Relationship Specialty Start Date End Date Paul Lewis MD [address] [place] [address] PCP - General Family Medicine 05/01/24 Monika Castillo NP [address] [place] [address] Nurse Practitioner Family Medicine 04/03/24 Monika Castillo NP [address] [place] [address] [place] [address] Nurse Practitioner Family Medicine 05/01/24 documented as of this encounter
--- OUTSIDE RECORDS SUMMARY | 2025-05-06 09:51 | XMS_ITS | Encounter Summary ---
Author Organization [facility] Address [address] [place] [address] Care Team Providers Care Senior Asp Net Developer Name Role Phone Karen Oneill MD Primary Care Provider [phone] Monika Castillo NP Unavailable [phone] Paul Lewis MD Primary Care Provider [phone] Monika Castillo NP Unavailable [phone] Encounter Details Date Type Department Care Team (Late st Contact Info) Description 04/04/2024 Orders Only [facility] [address] [place] [address] Karen Oneill MD [address] [place] [address] Social History Tobacco Use Types [...] [address] [place] [address] Halle Kaur DO [address] [place] [address] documented as of this encounter Procedures Procedure [...] on filedocumented in this encounter Care Teams Senior Asp Net Developer Relationship Specialty Start Date End Date Karen Oneill MD PCP - General Family Medicine 04/03/24 04/30/24 Paul Lewis MD [address] [place] [address] PCP - General Family Medicine 05/01/24 Monika Castillo NP [address] [place] [address] Nurse Practitioner Family Medicine 04/03/24 Monika Castillo NP [address] [place] [address] Nurse Practitioner Family Medicine 05/01/24 documented as of this encounter
--- OUTSIDE RECORDS SUMMARY | 2025-05-06 09:51 | XMS_ITS | Encounter Summary ---
Author Organization [facility] Address [address] [facility] [place] [address] Care Team Providers Care Clinical Social Worker Name Role Phone Karen Oneill MD Primary Care Provider [phone] Karen Oneill MD Primary Care Provider [phone] Monika Castillo MEDICAL MANAGER Unavailable [phone] Paul Lewis MD Primary Care Provider [phone] Monika Castillo MEDICAL MANAGER Unavailable [phone] Encounter Details Date Type Department Care Team (Late st Contact Info) Description 03/21/2024 Abstract [facility] [address] [facility] [address] [place] [address] Halle Kaur, DO [address] [facility] [address] [place] [address] Social History Tobacco Use Types Packs/Day Years [...] [address] [place] [address] [place] [address] Halle Kaur DO [address] [place] [address] documented as of this encounter Visit Diagnoses Not on filedocumented in this encounter Care Teams Clinical Social Worker Relationship Specialty Start Date End Date Karen Oneill MD PCP - General Family Medicine 03/14/24 04/02/24 Karen Oneill MD PCP - General Family Medicine 04/03/24 04/30/24 Paul Lewis MD [address] [place] [address] PCP - General Family Medicine 05/01/24 Monika Castillo NP [address] [place] [address] Nurse Practitioner Family Medicine 04/03/24 Monika Castillo NP [address] [place] [address] Nurse Practitioner Family Medicine 05/01/24 documented as of this encounter
--- OUTSIDE RECORDS SUMMARY | 2025-05-06 09:51 | XMS_ITS | Clinical Summary ---
Author Organization [facility] Address [address] [place] [address] Care Team Providers Care New Car Get Ready Mechanic Name Role Phone Monika Castillo NP Unavailable [phone] Paul Lewis MD Primary Care Provider [phone] Monika Castillo CONTROLS DESIGNER Unavailable [phone] Allergies No known active allergies Medications Semaglutide,0.25 or 0.5MG/DOS, (Ozempic, 0.25 or 0.5 MG/DOSE,) 2 MG/3ML solution pen-injector Inject 0.5 mg under the skin every 7 (seven) days Active BD Pen Needle Lauren 2nd Gen 32G X 4 MM misc Inject 1 each under the skin Daily 4 Active insulin glargine (Lantus SoloStar) 100 UNIT/ML penIndications:Typ e 2 diabetes mellitus with other circulatory complications (HCC) Inject 24 Units under the skin at bedtime 15 mL 3 4 Active ASPIRIN 81 PO Take 81 mg by mouth Daily Active glipiZIDE (Glucotrol) 10 MG tabletIndications: Type 2 diabetes mellitus with other circulatory complications (HCC) Take 1 tablet (10 mg) by mouth Daily 90 tablet 1 5 Active amLODIPine (Norvasc) 10 MG tabletIndications: Primary hypertension Take 1 tablet (10 mg) by mouth Daily 90 tablet 1 5 06/10/20 25 Active atorvastatin (Lipitor) 80 MG tabletIndications: Type 2 diabetes mellitus with other circulatory complications (HCC) Take 1 tablet (80 mg) by mouth at bedtime 90 tablet 1 5 06/10/20 25 Active carvedilol (Coreg) 25 MG tabletIndications: Primary hypertension Take 1 tablet (25 mg) by mouth in the morning and 1 tablet (25 mg) in the evening. Take with meals. 180 tablet 1 5 06/10/20 25 Active levothyroxine (Synthroid, Levoxyl) 112 MCG tabletIndications: Hypothyroidism, unspecified type Take 1 tablet (112 mcg) by mouth in the morning. Take before meals. 90 tablet 1 5 06/10/20 25 Active cholecalciferol (Vitamin D-3) 125 MCG (5000 UT) capsuleIndications :Vitamin D deficiency Take 1 capsule (125 mcg) by mouth Daily 90 capsule 5 06/10/20 25 Active escitalopram (Lexapro) 20 MG tabletIndications: Anxiety and depression Take 1 tablet (20 mg) by mouth Daily 90 tablet 5 06/10/20 25 Active Active Problems Problem Noted Date Diagnosed Date Vitamin D deficiency 11/13/2024 Hypocalcemia 11/08/2024 salvage determiner (current) use of insulin 10/24/2024 Other specified diabetes mellitus without compli cations 10/24/2024 Assessment & Plan (10/24/2024 7:26 AM EST): Cont with dr kaur Encounter for subsequent [facility] wellness visit (AWV) in Medicare patient 05/08/2024 [...] (04/04/2024): 07/06/23: [facility] normal Acute bloody pericarditis ([facility]) 04/03/2024 Assessment & Plan (04/03/2024 11:54 AM EDT): Follows every 6-12 months w cardiology Difficulty getting to her appt up in [place] d/t daughter being sick with pancreatic cancer [...] (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 Pericardial effusion ([facility]) 08/13/2019 Assessment & Plan (10/24/2024 3:23 PM [...] Encounters Date Type Department Care Team Description 03/22/2025 Clinisync Result Encounter [facility] External Department Unsolicited Monika Castillo NP 03/12/2025 3:20 PM EDT Office Visit [facility] [address] [place] [address] Monika Castillo NP Anxiety and depression (Primary Dx); Class 1 obesity due to excess calories with serious comorbidity and body mass index (BMI) of 31.0 to 31.9 in adult; Hypothyroidism, unspecified type ; Encounter for screening mammogram for malignant neoplasm of breast; Primary hypertension ; Type 2 diabetes mellitus with other circulatory complications (HCC); Vitamin D deficiency from Last 3 Months Family History Medical History Relation Name Comments Heart disease Father Simone Rios COPD Mother Cheri Rios Cancer Mother Cheri Rios Heart disease Mother Cheri Rios Ovarian cancer [...] week 05/20/2024 How often do you attend jain or sabianism serv ices? Patient declined 05/20/2024 Active Member [...] any time in the past 12 m [facility], were you homeless or living in a intermediate (including now)? No 05/20/2024 Comments Unknown Sex [...] [address] [place] [address] Halle Kaur, [address] [place] [address] Health Maintenance Due Date Last Done Comments [...] Procedure Name Priority Date/Time Associated Diagnosis Comments [facility] VITAMIN D 25 [place] Routine 03/22/2025 9 :27 AM EDT POCT GLYCOSYLATED HEMOGLOBIN (HGB A1C) Routine 12/26/2024 11:15 AM EDT Type 2 diabetes mellitus with other circulatory complications (HCC) COLONOSCOPY Routine 04/04/2024 2:19 PM EDT MAMMOGRAM, BILATERAL, SCREEN:* Routine 04/04/2024 1:30 PM EDT from Last 3 Months or Most Recently Relevant to Health Maintenance Results * [facility] VITAMIN D 25 [place] (03/22/2025 9:27 AM EDT) VITAMIN D 20.6 ng/mL [facility] Comment: <20 ng/mL Vit D deficient 20-<30 ng/mL Vit D insufficient 30-100 ng/mL Vit D sufficient >100 ng/mL Potential Toxicity 03/22/2025 9:27 AM EDT 03/22/2025 9:28 AM EDT Narrative CLINISYNC - 03/22/2025 12:21 PM EDT Monika Castillo NP [facility] Final Result [facility] * POCT glycosylated hemoglobin (Hb A1C) docked [...] Maintenance Insurance [employer] Care Teams New Car Get Ready Mechanic Relationship Specialty Start Date End Date Paul Lewis MD [address] [place] [address] PCP - General Family Medicine 05/01/24 Monika Castillo NP [address] [place] [address] Nurse Practitioner Family Medicine 04/03/24 Monika Castillo NP [address] [place] [address] Nurse Practitioner Family Medicine 05/01/24
--- OUTSIDE RECORDS SUMMARY | 2025-05-06 09:51 | XMS_ITS | Encounter Summary ---
Author Organization [facility] Address [address] [facility] [place] [address] Care Team Providers Care Cigarette Machines Mechanic Name Role Phone Karen Oneill MD Primary Care Provider [phone] Karen Oneill MD Primary Care Provider [phone] Monika Castillo JOB COACHING Unavailable [phone] Paul Lewis MD Primary Care Provider [phone] Monika Castillo JOB COACHING Unavailable [phone] Encounter Details Date Type Department Care Team (Late st Contact Info) Description 03/21/2024 Abstract [facility] [address] [facility] [address] [place] [address] Halle Kaur, DO [address] [facility] [address] [place] [address] Social History Tobacco Use Types Packs/Day Years [...] [address] [place] [address] Halle Kaur DO [address] [place] [address] documented as of this encounter Visit Diagnoses Not on filedocumented in this encounter Care Teams Cigarette Machines Mechanic Relationship Specialty Start Date End Date Karen Oneill MD PCP - General Family Medicine 03/14/24 04/02/24 Karen Oneill MD PCP - General Family Medicine 04/03/24 04/30/24 Pual Lewis MD [address] [place] [address] PCP - General Family Medicine 05/01/24 Monika Castillo NP [address] [place] [address] Nurse Practitioner Family Medicine 04/03/24 Monika Castillo NP [address] [place] [address] Nurse Practitioner Family Medicine 05/01/24 documented as of this encounter
--- NOTE | 2025-05-06 09:53 | MM_ITS ---
Patient Name: TANYA WOODS MR#: [id number] : 1955 Exam Date: 05/06/2025 Ordering Doctor: PATRICK SANDERS CNP RADIOLOGY REPORT PROCEDURE: MM TOMOSYNTHESIS SCREENING BI COMPARISON: MM TOMOSYNTHESIS SCREENING BI, 07/06/2023. MG MAMM SCREEN ALCIDES W CAD, 08/25/2020. MG MAMM SCREEN ALCIDES W CAD, 09/13/2018. MG MAMM ALCIDES SCRN W CAD DIG, 04/08/2013. INDICATIONS: Screening Calculator Name NCI Breast Cancer Risk Assessment Tool 5 Year Breast Cancer Risk 1.50% Lifetime Breast Cancer Risk 4.80% Personal Breast Cancer No Personal Ovarian Cancer No Treatments None Family Cancers Daughter with pancreatic cancer at age 44; Mother with uterine cancer at age 50. LOCATION: [facility] BREAST COMPOSITION: There are scattered areas of fibroglandular density. FINDINGS: DIAGNOSTIC CATEGORY 1--NEGATIVE. RIGHT BREAST: No significant suspicious finding. LEFT BREAST: No significant suspicious finding. RECOMMENDATIONS: ROUTINE MAMMOGRAM AND CLINICAL EVALUATION IN 12 MONTHS. PLEASE NOTE: A NORMAL MAMMOGRAM DOES NOT EXCLUDE THE POSSIBILITY OF BREAST CANCER. A CLINICALLY SUSPICIOUS PALPABLE LUMP SHOULD BE BIOPSIED. Dictated by: Bogdan Bowles DO on 05/06/2025 at 15:51 Approved by: Bogdan Bowles DO on 05/06/2025 at 15:52
== END 2025-05-06 09:50 | disposition home or self-care (01) ==
LOC: MAMMO 09:49
PROVIDERS: PCP Nurse Practitioner; Visit Provider Nurse Practitioner
DX: Z12.31 Encounter for screening mammogram for malignant neoplasm of breast (principal); Z80.8 Family history of malignant neoplasm of other organs or systems
CPT/HCPCS: 77063; 77067

== ENCOUNTER 2025-05-22 11:40 | Outpatient (OUT) | payer MEDICARE, OTHER, SELFPAY ==
--- NOTE | 2025-05-22 | XR_ITS ---
[address] [address] Patient Name: TANYA WOODS MRN: [id number] date: 1955 Sex: F Assigned Patient Location: [facility] Current Patient Location: [facility] Accession/Order Number: [id number] Exam Date: 05/22/2025 13:31 Report Date: 05/22/2025 13:33 At the request of: CASSIDY SANDERS NP Procedure: XR foot RT min 3V RIGHT ANKLE - 3 views, right foot 3 views CLINICAL HISTORY: ACUTE RIGHT ANKLE PAIN AND SWELLING COMPARISON: None FINDINGS: Right ankle: No focal soft tissue abnormality. Ankle mortise appears intact. No acute bony process. Right foot: No focal soft tissue abnormality. No acute bony process is seen. Plantar spurring. No bony erosions. Mild degenerative changes talonavicular joint. XR/XR ankle RT min 3V IMPRESSION: NO ACUTE BONY PROCESS. Impression dictated by: Bogdan Bowles Jr., D.O. 05/22/2025 1:33 PM Dictation Location[facility] Electron[facility] authenticated by: [id number] Y Date: 05/22/2025 13:33
--- NOTE | 2025-05-22 | XR_ITS ---
[address] [address] Patient Name: TANYA WOODS MRN: [id number] date: 1955 Sex: F Assigned Patient Location: [facility] Current Patient Location: [facility] Accession/Order Number: [id number] Exam Date: 05/22/2025 13:31 Report Date: 05/22/2025 13:33 At the request of: CASSIDY SANDERS NP Procedure: XR foot RT min 3V RIGHT ANKLE - 3 views, right foot 3 views CLINICAL HISTORY: ACUTE RIGHT ANKLE PAIN AND SWELLING COMPARISON: None FINDINGS: Right ankle: No focal soft tissue abnormality. Ankle mortise appears intact. No acute bony process. Right foot: No focal soft tissue abnormality. No acute bony process is seen. Plantar spurring. No bony erosions. Mild degenerative changes talonavicular joint. XR/XR foot RT min 3V IMPRESSION: NO ACUTE BONY PROCESS. Impression dictated by: Bogdan Bowles Jr., D.O. 05/22/2025 1:33 PM Dictation Location: [facility] Electronically authenticated by: [id number] Y Date: 05/22/2025 13:33
--- OUTSIDE RECORDS SUMMARY | 2025-05-22 11:46 | XMS_ITS | Encounter Summary ---
Author Organization [facility] Address [address] [facility] [place] [address] Care Team Providers Care Acquisitions Assistant Name Role Phone Monika Castillo DENTAL DIRECTOR Unavailable [phone] Paul Lewis MD Primary Care Provider [phone] Monika Castillo DENTAL DIRECTOR Unavailable [phone] Encounter Details Date Type Department Care Team (Late st Contact Info) Description 12/26/2024 Abstract [facility] [address] [place] [address] Halle Kaur, DO [address] [facility] [address] [place] [address] Social History Tobacco Use Types Packs/Day Years [...] week 05/20/2024 How often do you attend anglican or latter-day serv ices? Patient declined 05/20/2024 [...] were you homeless or living in a senior care (including now)? No 05/20/2024 Comments Unknown Sex [...] Care Team (Late st Contact Info) Description 05/29/2025 9:45 AM EDT Office Visit [facility] [address] [place] [address] Halle Kaur DO [address] [place] [address] documented as of this encounter Visit Diagnoses Not on filedocumented in this encounter Additional Health Concerns Assessment Noted Time PHQ-9 Depression Total Score: 7 05/08/20 4:15 PM EDT documented as of this encounter Care Teams Acquisitions Assistant Relationship Specialty Start Date End Date Paul Lewis MD [address] [place] [address] PCP - General Family Medicine 05/01/24 Monika Castillo NP [address] [place] [address] Nurse Practitioner Family Medicine 04/03/24 Monika Castillo NP [address] [place] [address] Nurse Practitioner Family Medicine 05/01/24 documented as of this encounter
--- OUTSIDE RECORDS SUMMARY | 2025-05-22 11:46 | XMS_ITS | Encounter Summary ---
Author Organization [facility] Address [address] [place] [address] Care Team Providers Care New Accounts Banking Representative Name Role Phone Monika Castillo RADIATOR FITTER Unavailable [phone] Paul Lewis MD Primary Care Provider Monika Castillo RADIATOR FITTER Unavailable [phone] Encounter Details Date Type Department Care Team (Late st Contact Info) Description 05/21/2025 Orders Only [facility] [address] [place] [address] Monika Castillo, RADIATOR FITTER [address] [place] [address] Right foot pain (Primary Dx); Acute right ankle pain Social History Tobacco Use Types Packs/Day Years [...] week 05/20/2024 How often do you attend mormon or latter-day serv ices? Patient declined 05/20/2024 [...] any time in the past 12 m [facility], were you homeless or living in a residential (including now)? No 05/20/2024 Comments Unknown Sex and Gender Information Value Date Recorded Sex Assigned at Not on file Legal Sex Female 6:52 PM EDT Gender Identity Female 03/07/2024 8:36 AM EDT Sexual Orientation Not on file documented as of this encounter Plan of Treatment Upcoming Encounters Date Type Department Care Team (Late st Contact Info) Description 05/29/2025 9:45 AM EDT Office Visit [facility] [address] [place] [address] Halle Kaur DO [address] [place] [address] Scheduled Orders Name Type Priority Associated Diagnoses Orde r Schedule XR foot 3+ views right Imaging Routine Right foot pain Expected: 05/21/2025, Expires: 05/21/2026 XR ankle 3+ views right Imaging Routine Acute right ankle pain Expected: 05/21/2025, Expires: 05/21/2026 documented as of this encounter Visit Diagnoses Diagnosis Right foot pain- Primary Pain in soft tissues of limb Acute right ankle pain documented in this encounter Additional Health Concerns Assessment Noted Time PHQ-9 Depression Total Score: 7 05/08/20 4:15 PM EDT documented as of this encounter Care Teams New Accounts Banking Representative Relationship Specialty Start Date End Date Paul Lewis MD [address] [place] [address] PCP - General Family Medicine 05/01/24 Monika Castillo NP [address] [place] [address] Nurse Practitioner Family Medicine 04/03/24 Monika Castillo NP [address] [place] [address] Nurse Practitioner Family Medicine 05/01/24 documented as of this encounter
--- OUTSIDE RECORDS SUMMARY | 2025-05-22 11:46 | XMS_ITS | Clinical Summary ---
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 aTnya Blake is struggling to gain control of [...] this to help with cost. Pericardial effusion ([facility]) 08/13/2019 Assessment & Plan (10/24/2024 3:23 PM [...] Encounters Date Type Department Care Team Description 05/21/2025 Orders Only [facility] [address] [place] [address] Monika Castillo NP Right foot pain (Primary Dx); Acute right ankle pain 05/21/2025 Telephone [facility] [address] [place] [address] Monika Castillo NP 05/09/2025 Travel 05/06/2025 Clinisync Result Encounter [facility] External Department Unsolicited Monika Castillo NP 03/22/2025 Clinisync Result Encounter [facility] External Department Unsolicited Monika Castillo NP 03/12/2025 3:20 PM EDT Office Visit [facility] [address] [place] [address] Monika Castillo NP Anxiety and depression (Primary [...] Heart disease Father Simone Rios COPD Mother Tanya Rios Cancer Mother Tanya Rios Heart disease Mother Tanya Rios Ovarian cancer Mother Tanya Rios Thyroid disease Mother Tanya Rios Relation Name Status Comments Daughter Alive 21- of [place] creatic cancer at 46 years1- heart disease Father Simone Rios Mother Tanya Rios Son Alive 21 had open hea [...] How often do you attend caodaism or orthodoxy serv ices? Patient declined 05/20/2024 Active Member [...] any time in the past 12 m [facility], were you homeless or living in [...] [address] [place] [address] Halle Kaur, [address] [place] [address] Health Maintenance Due Date Last Done Comments CT Colonography 1955 FIT-DNA 1955 FIT 1955 FOBT 1955 Sigmoidoscopy 1955 Diabetes: Hemoglobin A1C 03/28/2025 025, 08/23/2024, 05/23/2024, Additional history exists Diabetes: Urine Protein Screening 04/06/2025 024 Medicare Annual Wellness (AWV) 05/08/2025 0 05/08/2024, 05/08/2024, 05/08/2024 Diabetes: Retinopathy Screening 07/16/2025 Mammogram 05/06/2026 05/06/2025, 04/04/2024 Colonoscopy 04/04/2034 04/04/2024, 04/04/2024 Colorectal Cancer Screening 04/04/2034 Influenza Vaccine Discontinued Pneumococcal Vaccine: 65+ Years Discontinued Procedures Procedure Name Priority Date/Time Associated Diagnosis Comments MM TOMOSYNTHESIS SCREENING BI 05/06/2025 3:52 PM EDT [facility] VITAMIN D 25 [place] Routine 03/22/2025 9 :27 AM EDT POCT GLYCOSYLATED HEMOGLOBIN (HGB A1C) Routine 12/26/2024 11:15 AM EDT Type 2 diabetes mellitus with other circulatory complications (HCC) COLONOSCOPY Routine 04/04/2024 2:19 PM EDT from Last 3 Months or Most Recently Relevant to Health Maintenance Results * MM TOMOSYNTHESIS SCREENING BI (05/06/2025 3:52 PM EDT) Anatomical Region Laterality Modality Other 05/06/2025 3:52 PM EDT Narrative 05/06/2025 3:53 [place] [address] Mammography Report Signed Patient: TANYA BLAKE MR#: [id number] : 1955 Acct:[id number] Age/Sex: 69 / F ADM Date: 05/06/25 Loc: MAMMO Attending Dr: Monika Castillo NP Ordering Physician: Monika Castillo NP Results: Date of Service: 05/06/25 Follow Up: Procedure(s): MM tomosynthesis screening BI Accession Number(s): [id number] cc: Monika Castillo NP Patient Name: TANYA BLAKE MR#: [id number] : 1955 Exam Date: 05/06/2025 Ordering Doctor: PATRICK CASTILLO CNP RADIOLOGY REPORT PROCEDURE: MM TOMOSYNTHESIS SCREENING BI COMPARISON: MM TOMOSYNTHESIS SCREENING BI, 07/06/2023. MG MAMM SCREEN ALCIDES W CAD, 08/25/2020. MG MAMM SCREEN ALCIDES W CAD, 09/13/2018. MG MAMM ALCIDES SCRN W CAD DIG, 04/08/2013. INDICATIONS: Screening Calculator Name NCI Breast Cancer Risk Assessment Tool 5 Year Breast Cancer Risk 1.50% Lifetime Breast Cancer Risk 4.80% Personal Breast Cancer No Personal Ovarian Cancer No Treatments None Family Cancers Daughter with pancreatic cancer at age 44; Mother with uterine cancer at age 50. LOCATION: [facility] BREAST COMPOSITION: There are scattered areas of fibroglandular density. FINDINGS: DIAGNOSTIC CATEGORY 1--NEGATIVE. RIGHT BREAST: No significant suspicious finding. LEFT BREAST: No significant suspicious finding. RECOMMENDATIONS: ROUTINE MAMMOGRAM AND CLINICAL EVALUATION IN 12 MONTHS. PLEASE NOTE: A NORMAL MAMMOGRAM DOES NOT EXCLUDE THE POSSIBILITY OF BREAST CANCER. A CLINICALLY SUSPICIOUS PALPABLE LUMP SHOULD BE BIOPSIED. Dictated by: Bogdan Bowles DO on 05/06/2025 at 15:51 Approved by: Bogdan Bowles DO on 05/06/2025 at 15:52 Dictated By: Bogdan Bowles M.D. Signed By: 05/06/25 1553 DD/ 1552 TD/TT: Technology Lab Teacher: Procedure Note Radiology, Radiologist, MD - 05/06/2025 [place] [address] Mammography Report Signed Patient: TANYA BLAKE MMR#: [id number] : 1955cct:[id number] Age/Sex: 69 / FADM Date: 05/06/25 Loc: MAMMO Attending Dr: Monika Castillo NP Ordering Physician: Monika Castillo NPResults: Date of Service: 05/06/25Follow Up: Procedure(s): MM tomosynthesis screening BI Accession Number(s): [id number] cc: Monika Castillo NP Patient Name: TANYA BLAKE MR#: [id number] : 1955 Exam Date: 05/06/2025 Ordering Doctor: PATRICK CASTILLO CNP RADIOLOGY REPORT PROCEDURE: MM TOMOSYNTHESIS SCREENING BI COMPARISON: MM TOMOSYNTHESIS SCREENING BI, 07/06/2023. MG MAMM SCREENBIL W CAD, 08/25/2020. MG MAMM SCREEN ALCIDES W CAD, 09/13/2018. MG MAMM BILSCRN W CAD DIG, 04/08/2013. INDICATIONS: Screening Calculator Name NCI Breast Cancer Risk Assessment Tool 5 Year Breast Cancer Risk 1.50% Lifetime Breast Cancer Risk 4.80% Personal Breast Cancer No Personal Ovarian Cancer No Treatments None Family Cancers Daughter with pancreatic cancer at age 44; Mother with uterine cancer at age 50. LOCATION: [facility] BREAST COMPOSITION: There are scattered areas of fibroglandulardensity. FINDINGS: DIAGNOSTIC CATEGORY 1--NEGATIVE. RIGHT BREAST: No significant suspicious finding. LEFT BREAST: No significant suspicious finding. RECOMMENDATIONS: ROUTINE MAMMOGRAM AND CLINICAL EVALUATION IN 12 MONTHS. PLEASE NOTE: A NORMAL MAMMOGRAM DOES NOT EXCLUDE THE POSSIBILITY OFBREAST CANCER. A CLINICALLY SUSPICIOUS PALPABLE LUMP SHOULD BE BIOPSIED. Dictated by: Bogdan Bowles DO on 05/06/2025 at 15:51 Approved by: Bogdan Bowles DO on 05/06/2025 at 15:52 Dictated By: Bogdan Bowles M.D. Signed By:05/06/25 1553 DD/ 1552 TD/TT: Technology Lab Teacher: Monika Castillo NP [facility] Final Result * [facility] VITAMIN D 25 [place] (03/22/2025 9:27 AM EDT) VITAMIN D 20.6 ng/mL [facility] Comment: <20 ng/mL Vit D deficient 20-<30 ng/mL Vit D insufficient 30-100 ng/mL Vit D sufficient >100 ng/mL Potential Toxicity 03/22/2025 9:27 AM EDT 03/22/2025 9:28 AM EDT Narrative CLINISYNC - 03/22/2025 12:21 PM EDT Monika Castillo NP [facility] Final [facility] * POCT glycosylated hemoglobin (Hb A1C) docked device (12/26/2024 11:15 AM EDT) Hemoglobin A1C 6.9 Blood Venous blood specimen / Unknown 12/26/2024 11:15 AM EDT us Halle Kaur DO POINT OF CARE TEST ENTER/E DIT ORDERABLES Final Result * Colonoscopy (04/04/2024 2:19 PM EDT) Anatomical Region Laterality Modality Endoscopy Hay Marin MD ENDOSCOPY PROCEDURE ORDERABLES F inal Result from Last 3 Months or Most Recently Relevant to Health Maintenance Insurance [employer] Care Teams Disposition Clerk Relationship Specialty Start Date End Date Paul Lewis MD [address] [place] [address] PCP - General Family Medicine 05/01/24 Monika Castillo NP [address] [place] [address] Nurse Practitioner Family Medicine 04/03/24 Monika Castillo NP [address] [place] [address] Nurse Practitioner Family Medicine 05/01/24
--- OUTSIDE RECORDS SUMMARY | 2025-05-22 11:46 | XMS_ITS | Encounter Summary ---
Author Organization [facility] Address [address] [facility] [place] [address] Care Team Providers Care Grey Washer Name Role Phone Monika Castillo CREDIT CARD SPECIALIST Unavailable [phone] Paul Lewis MD Primary Care Provider [phone] Monika Castillo CREDIT CARD SPECIALIST Unavailable [phone] Reason for Visit * Reason Comments Med Refill Encounter Details Date Type Department Care Team (Late st Contact Info) Description 09/26/2024 Refill [facility] [address] [place] [phone] Halle Kaur, DO [address] [facility] [address] [place] [address] Primary hypertension Social History Tobacco Use Types [...] week 05/20/2024 How often do you attend adventism or catholic serv ices? Patient declined 05/20/2024 Active Member [...] were you homeless or living in a assisted (including now)? No 05/20/2024 Comments Unknown Sex [...] [address] [place] [address] Halle Kaur DO [address] [place] [address] documented as of this encounter Visit Diagnoses Diagnosis Primary hypertension Unspecified essential hypertension documented in this encounter Additional Health Concerns Assessment Noted Time PHQ-9 Depression Total Score: 7 05/08/20 4:15 PM EDT documented as of this encounter Care Teams Grey Washer Relationship Specialty Start Date End Date Paul Lewis MD [address] [place] [address] PCP - General Family Medicine 05/01/24 Monika Castillo NP [address] [place] [address] [place] [address] Nurse Practitioner Family Medicine 04/03/24 Monika Castillo NP [address] [place] [phone] Nurse Practitioner Family Medicine 05/01/24 documented as of this encounter
--- OUTSIDE RECORDS SUMMARY | 2025-05-22 11:46 | XMS_ITS | Encounter Summary ---
Author Organization [facility] Address [address] [place] [address] Care Team Providers Care Brass Burnisher Name Role Phone Karen Oneill MD Primary Care Provider [phone] Monika Castillo NP Unavailable [phone] Paul Lewis MD Primary Care Provider [phone] Monika Castillo NP Unavailable [phone] Encounter Details Date Type Department Care Team (Late st Contact Info) Description 04/04/2024 Orders Only [facility] [address] [place] [address] Karen Oneill MD [address] [place] [address] Social History Tobacco Use Types [...] 05/29/2025 9:45 AM EDT Office Visit [facility] [address] [place] [address] Halle Kaur DO [address] [place] [address] documented as of this encounter Procedures Procedure [...] on filedocumented in this encounter Care Teams Brass Burnisher Relationship Specialty Start Date End Date Karen Oneill MD PCP - General Family Medicine 04/03/24 04/30/24 Paul Lewis MD [address] [place] [address] PCP - General Family Medicine 05/01/24 Monika Castillo NP [address] [place] [address] Nurse Practitioner Family Medicine 04/03/24 Monika Castillo NP [address] [place] [address] Nurse Practitioner Family Medicine 05/01/24 documented as of this encounter
--- OUTSIDE RECORDS SUMMARY | 2025-05-22 11:46 | XMS_ITS | Encounter Summary ---
Author Organization [facility] Address [address] [place] [address] Care Team Providers Care Intake Specialist Name Role Phone Monika Castillo DINKEY ENGINEER Unavailable [phone] Paul Lewis MD Primary Care Provider Monika Castillo DINKEY ENGINEER Unavailable [phone] Encounter Details Date Type Department Care Team (Late st Contact Info) Description 05/21/2025 Telephone [facility] [address] [place] [address] Monika Castillo NP [address] [place] [address] Social History Tobacco Use Types Packs/Day Years [...] week 05/20/2024 How often do you attend holiness or yazidism serv ices? Patient declined 05/20/2024 Active Member [...] were you homeless or living in a [facility] (including now)? No 05/20/2024 Comments Unknown Sex and Gender Information Value Date Recorded Sex Assigned at Not on file Legal Sex Female 6:52 PM EDT Gender Identity Female 03/07/2024 8:36 AM EDT Sexual Orientation Not on file documented as of this encounter Miscellaneous Notes * Telephone Encounter - Gabbi Resendiz - 05/21/2025 9:45 AM EDT Patient is having pain on right ankle on the outside. It was bruised but it is going away. It has hurt for a few days and pain is not going away. Patient asked if you could send in x rays for foot/ankle. an documented in this encounter Plan of Treatment Upcoming Encounters Date Type Department Care Team (Late st Contact Info) Description 05/29/2025 9:45 AM EDT Office Visit [facility] [address] [place] [address] Halle Kaur, [address] [place] [address] documented as of this encounter Visit Diagnoses Not on filedocumented in this encounter Additional Health Concerns Assessment Noted Time PHQ-9 Depression Total Score: 7 05/08/20 4:15 PM EDT documented as of this encounter Care Teams Intake Specialist Relationship Specialty Start Date End Date Paul Lewis MD [address] [place] [address] PCP - General Family Medicine 05/01/24 Monika Castillo NP [address] [place] [address] Nurse Practitioner Family Medicine 04/03/24 Monika Castillo NP [address] [place] [address] Nurse Practitioner Family Medicine 05/01/24 documented as of this encounter
--- OUTSIDE RECORDS SUMMARY | 2025-05-22 11:46 | XMS_ITS | Encounter Summary ---
Author Organization [facility] Address [address] [place] [address] Care Team Providers Care Heel Seat Filler Name Role Phone Monika Castillo ELECTRICIAN SUPERVISOR AIRPLANE Unavailable [phone] Paul Lewis MD Primary Care Provider [phone] Monika Castillo ELECTRICIAN SUPERVISOR AIRPLANE Unavailable [phone] Reason for Visit * Reason Comments Med Refill Encounter Details Date Type Department Care Team (Late st Contact Info) Description 10/16/2024 Refill [facility] [address] [place] [address] Monika Castillo, FABIOLA [address] [place] [address] Hypothyroidism, unspecified type Social History Tobacco Use [...] week 05/20/2024 How often do you attend anabaptist or advent serv ices? Patient declined 05/20/2024 Active Member [...] any time in the past 12 m ont, were you homeless or living in a [...] [address] [place] [address] Halle Kaur DO [address] [place] [address] documented as of this encounter Visit Diagnoses Diagnosis Hypothyroidism, unspecified type documented in this encounter Additional Health Concerns Assessment Noted Time PHQ-9 Depression Total Score: 7 05/08/20 4:15 PM EDT documented as of this encounter Care Teams Heel Seat Filler Relationship Specialty Start Date End Date Paul Lewis MD [address] [place] [address] PCP - General Family Medicine 05/01/24 Monika Castillo NP [address] [place] [address] Nurse Practitioner Family Medicine 04/03/24 Monika Castillo NP [address] [place] [address] Nurse Practitioner Family Medicine 05/01/24 documented as of this encounter
--- OUTSIDE RECORDS SUMMARY | 2025-05-22 11:46 | XMS_ITS | Encounter Summary ---
Author Organization [facility] Address [address] [facility] [place] [address] Care Team Providers Care Clicker Operator Name Role Phone Karen Oneill MD Primary Care Provider [phone] Karen Oneill MD Primary Care Provider [phone] Monika Castillo DIRECTOR OF MEDIA Unavailable [phone] Paul Lewis MD Primary Care Provider [phone] Monika Castillo DIRECTOR OF MEDIA Unavailable [phone] Encounter Details Date Type Department Care Team (Late st Contact Info) Description 03/21/2024 Abstract [facility] [address] [facility] 230 [place] [address] Halle Kaur, DO [address] [facility] 230 [place] [address] Social History Tobacco Use Types Packs/Day Years [...] AM EDT Office Visit [facility] [place] [facility] [address] [place] [address] Halle Kaur DO [address] [place] [address] documented as of this encounter Visit Diagnoses Not on filedocumented in this encounter Care Teams Clicker Operator Relationship Specialty Start Date End Date Karen Oneill MD PCP - General Family Medicine 03/14/24 04/02/24 Karen Oneill MD PCP - General Family Medicine 04/03/24 04/30/24 Paul Lewis MD [address] [place] [address] PCP - General Family Medicine 05/01/24 Monika Castillo NP [address] [place] [address] Nurse Practitioner Family Medicine 04/03/24 Monika Castillo NP [address] [place] [address] Nurse Practitioner Family Medicine 05/01/24 documented as of this encounter
--- OUTSIDE RECORDS SUMMARY | 2025-05-22 11:46 | XMS_ITS | Encounter Summary ---
Author Organization [facility] Address [address] [place] [address] Care Team Providers Care Dealer Account Manager Name Role Phone Monika Castillo JACKHAMMER OPERATOR Unavailable [phone] Paul Lewis MD Primary Care Provider [phone] Monika Castillo JACKHAMMER OPERATOR Unavailable [phone] Encounter Details Date Type Department Care Team (Latest Contact Info) Description 05/09/2025 Travel Social History Tobacco Use Types Packs/Day Years [...] week 05/20/2024 How often do you attend spiritism or taoism serv ices? Patient declined 05/20/2024 Active Member [...] [address] [place] [address] Halle Kaur, [address] [place] [address] documented as of this encounter Visit Diagnoses Not on filedocumented in this encounter Additional Health Concerns Assessment Noted Time PHQ-9 Depression Total Score: 7 05/08/20 24 4:15 PM EDT documented as of this encounter Care Teams Dealer Account Manager Relationship Specialty Start Date End Date Paul Lewis MD [address] [place] [address] PCP - General Family Medicine 05/01/24 Monika Castillo NP [address] [place] [address] Nurse Practitioner Family Medicine 04/03/24 Monika Castillo NP [address] [place] [address] Nurse Practitioner Family Medicine 05/01/24 documented as of this encounter
--- OUTSIDE RECORDS SUMMARY | 2025-05-22 11:46 | XMS_ITS | Encounter Summary ---
Author Organization [facility] Address [address] [facility] [place] [address] Care Team Providers Care Pediatric Physician Assistant Name Role Phone Karen Oneill MD Primary Care Provider [phone] Karen Oneill MD Primary Care Provider [phone] Monika Castillo ABSORPTION AND ADSORPTION ENGINEER Unavailable [phone] Paul Lewis MD Primary Care Provider [phone] Monika Castillo ABSORPTION AND ADSORPTION ENGINEER Unavailable [phone] Encounter Details Date Type Department Care Team (Late st Contact Info) Description 03/21/2024 Abstract [facility] [address] [facility] 230 [place] [address] Halle Kaur, DO [address] [facility] 230 [place] [address] Social History Tobacco Use Types Packs/Day Years [...] AM EDT Office Visit [facility] [place] [facility] [address] [place] [address] Halle Kaur DO [address] [place] [address] documented as of this encounter Visit Diagnoses Not on filedocumented in this encounter Care Teams Pediatric Physician Assistant Relationship Specialty Start Date End Date Karen Oneill MD PCP - General Family Medicine 03/14/24 04/02/24 Karen Oneill MD PCP - General Family Medicine 04/03/24 04/30/24 Paul Lewis MD [address] [place] [address] PCP - General Family Medicine 05/01/24 Monika Castillo NP [address] [place] [address] Nurse Practitioner Family Medicine 04/03/24 Monika Castillo NP [address] [place] [address] Nurse Practitioner Family Medicine 05/01/24 documented as of this encounter
== END 2025-05-22 11:41 | disposition home or self-care (01) ==
LOC: RAD 11:43
PROVIDERS: PCP Nurse Practitioner; Visit Provider Nurse Practitioner
DX: M25.571 Pain in right ankle and joints of right foot (principal); M79.671 Pain in right foot
CPT/HCPCS: 73610; 73630

== ENCOUNTER 2025-06-25 08:38 | Outpatient (OUT) | payer MEDICARE, OTHER, SELFPAY ==
--- NOTE | 2025-06-25 08:40 | MR_ITS ---
[address] [address] Patient Name: TANYA WOODS MRN: [id number] date: 1955 Sex: F Assigned Patient Location: MRI Current Patient Location: MRI Accession/Order Number: [id number] Exam Date: 06/25/2025 08:50 Report Date: 06/25/2025 14:34 At the request of: JANY ANDREWS DPM Procedure: MR ankle RT wo con MRI Right Ankle without contrast TECHNIQUE: Multiplanar T1 and T2-weighted imaging of the obtained without contrast. COMPARISON: No plain film imaging 725 HISTORY: Acute right medial ankle pain. Bruising. Swelling. No injury. Assessment for posterior tibial tendon tear CLINICAL QUESTION: FINDINGS: SYNDESMOSIS: Adequate alignment of the distal tibia and fibula THE BONE MARROW: Normal fatty marrow without marrow infiltrative changes. Bone marrow edema the medial aspect of the talar dome. FRACTURE: No fracture identified. LATERAL COLLATERAL LIGAMENT COMPLEX: Intact anterior talofibular ligament. Intact calcaneofibular ligament. Intact posterior talofibular ligament. ANTEROLATERAL COMPARTMENT: No anterolateral impingement findings. PERONEAL TENDONS: Normal peroneal brevis tendon adjacent to the bone. No longitudinal split tear. Normal appearance of the peroneal longus tendon. Normal low signal tendon. Intact superior peroneal retinaculum with normal alignment of the peroneal brevis tendon. Normal appearance of the peroneal tendons behind the retromalleolar grove of the lateral malleolus. No surrounding fluid. No hypertrophy of the peroneal tubercle of the lateral calcaneus BIFURCATE LIGAMENT: Calcaneocuboid and calcaneonavicular ligaments of the bifurcate ligament are intact. The anterior process of the calcaneus is intact without bone marrow edematous changes. Intact the midtarsal joint. DELTOID LIGAMENT: The superficial and deep components of the medial collateral deltoid ligaments are intact. SPRING LIGAMENT: The spring ligament normally intersects the posterior tibial tendon in the talar head with coronal view no findings of tear or thickening. Specifically the superior medial segment is preserved. POSTERIOR TIBIAL TENDON: Normal orientation the posterior tibial tendon behind of the medial malleolus inserting into the navicular bone. Small amount of normal fluid is seen within the tendon sheath which terminates 1-2 cm proximal to the navicular insertion. No distal paratendinitis of the tendon identified. Unremarkable heterogeneous signal intensity of the distal tendon identified. SINUS TARSI: Normal fat-containing sinus tarsi identified without evidence of posterior tibial tendon dysfunction, talocalcaneal or fibulocalcaneal impingement identified. FLEXOR DIGITORUM LONGUS: Intact. FLEXOR HALLUCIS LONGUS: Intact . Fluid surrounding the flexor hallucis longus is likely a normal finding suggesting communication of the joint. ACHILLES TENDON: Normal homogeneous low signal. Normal thickness with slight concave anterior surface present. No peritendinous edema. No retrocalcaneal bursitis. No Alan deformity. Infiltration No tear of the calcaneal insertion or mid substance. Normal Garry's fat-pad. No Achilles tendon insertion enthesophyte. ANTERIOR TIBIAL TENDON:Anterior tibial tendon intact. No surrounding abnormal tendon sheath fluid. PLANTAR FASCIA: 3 fascicles of the plantar fascia are intact. No calcaneal spurring. No reactive bone marrow edema. No adjacent soft tissue edema. MR/MR ankle RT wo con IMPRESSION: Posterior tibial tendon intact and in adequate position. Small amount of fluid surrounds the peroneal tendon near the navicular insertion. There is accessory navicular identified. Mild adjacent inflammatory changes. Nonspecific finding. The retinaculum is intact. . Focal region of bone marrow edema in the talar dome in the weightbearing portion medial aspect demonstrated. 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 Osteochondral lesion may be present. Small amount of fibrotic tissue beneath the medial malleolus adjacent to the osteochondral lesion. May consider CT of the right ankle further assess. Impression dictated by: Juan Lira M.D. 06/25/2025 2:34 PM Dictation Location: [place] [address] Electronically authenticated by: [id number] Y Date: 06/25/2025 14:34
--- OUTSIDE RECORDS SUMMARY | 2025-06-25 09:00 | XMS_ITS | CCD ---
Author Organization [facility] Care Team Providers Care Cad Design Engineer Name Role Phone Cordell Masters Primary Care Provider BHARAT ARMANDO Referring Unavailable SARA-TORI PEDRAZA Consulting Unavailable DAVID KEY Admitting Unavailable CORBY CHARLES Attending Unavailable RANDAL, LILLAIM Mera Consulting Unavailable CHIQUIJATINDER ELLISON Consulting Unavailable JAGDISHLEONORA WRIGHT Consulting Unavailable AOUAMYLES Campo Consulting Unavailable CHRIS RUSSO Consulting Unavailable LUCINA RIVAS Consulting Unavailable ERICK MILES Consulting Unavailable MANOLO CONKLIN Referring Unavailable CORDELL MASTERS Primary Care Unavailable LONGTHORNE POORNIMA Referring Unavailable CORDELL MASTERS Primary Care Unavailable Cordell Masters MD Primary Care Provider [phone] DR CORDELL MASTERS Primary Care Unavailable GUERRERO, [...] Unavailable CORDELL MASTERS Primary Care Unavailable Anna MANAGER DIABETES, Monika Unavailable Joshua BROWNPaul Primary Care Provider Anna MANAGER DIABETES, Monika Unavailable MARY KAY WOMACK Attending Unavailable MARY KAY WOMACK Referring Unavailable HALLE FIGUEROA Attending Unavailable MONIKA CASTILLO Attending Unavailable HALLE FIGUEROA Attending Unavailable HALLE FIGUEROA Attending Unavailable MONIKA CASTILLO Attending Unavailable Medications Current Medications Medication Drug Class(es) Dates Sig (Normalized) Sig (Original) 3 ML semaglutide 1.34 MG/ML Pen Injector [Ozempic] (3 sources) Start: 03-10-2023 Ozempic (1 MG/DOSE) 4 MG/3ML as directed Subcutaneous February, Active amLODIPine 10 mg oral tablet (20 sources) Dihydropyridine Calcium Channel Ryley Start: 04-03-2024 End: 06-10-2025 take 1 tablet by mouth once daily amLODIPine (Norvasc) 10 MG tablet Indications: Primary hypertension Take 1 tablet (10 mg) by mouth Daily 90 tablet 1 03/12/2025 06/10/2025 Active Start: 01-01-2024 take 10 mg by mouth once daily Amlodipine Active 10 MG PO Daily January 01, 2024 12:00am take 1 tablet by hailey th every twenty-four hours amLODIPine Besylate 10 MG 1 tablet Orally Once a day Active aspirin 81 mg oral tablet (20 sources) Platelet Aggregation Inhibitor, Nonsteroidal Anti-inflammatory Drug take 81 mg by mouth once daily ASPIRIN 81 PO Take 81 mg by mouth Daily Active atorvastatin 80 mg oral tablet (20 sources) HMG-CoA Reductase Inhibitor Start: 024 End: 025 take 1 tablet by mouth at bedtime atorvastatin (Lipitor) 80 MG tablet Indications: Type 2 diabetes mellitus with other circulatory complications (HCC) Take 1 tablet (80 mg) by mouth at bedtime 90 tablet 1 03/12/2025 06/10/2025 Active Start: 01-01-2024 take 1 tablet by [...] (Coreg) 25 MG tablet Indications: Primary hypertension Take 1 tablet (25 mg) by mouth in the morning and 1 tablet (25 mg) in the evening. Take with meals. 180 tablet 1 03/12/2025 06/10/2025 Active Start: 01-01-2024 take 25 mg by [...] 0 Active cholecalciferol 0.125 mg oral capsule (20 sources) Vitamin D Start: 11-13-2024 End: 06-10-2025 take 1 capsule by mouth once daily cholecalciferol (Vitamin D-3) 125 MCG (5000 UT) capsule Indications: Vitamin D deficiency Take 1 capsule (125 mcg) by mouth Daily 90 capsule 03/12/2025 06/10/2025 Active clopidogrel 75 mg oral tablet (20 [...] sources) Serotonin Reuptake Inhibitor Start: 03-12-2025 End: 09-07-2025 take 1 tablet by mouth once daily escitalopram (Lexapro) 20 MG tablet Indications: Anxiety and depression Take 1 tablet (20 mg) by mouth Daily 90 tablet 06/09/2025 09/07/2025 Active Start: 04-03-2024 End: 03-12-2025 take 1 [...] by mouth Daily 90 tablet 1 12/26/2024 Active Start: 04-03-2024 take 1 tablet by [...] ml insulin glargine 100 unt/ml pen injector (20 sources) Insulin Analog Start: 05-23-20 24 insulin glargine (Lantus SoloStar) 100 UNIT/ML pen Indications: Type 2 diabetes mellitus with other circulatory complications (HCC) Inject 24 Units under the skin at bedtime 15 mL 3 05/23/2024 Active levothyroxine sodium 0.112 mg oral tablet (20 sources) l-Thyroxine Start: 10-16-19 End: 06-10-20 take 1 tablet by mouth before mealtime levothyroxine (Synthroid, Levoxyl) 112 MCG tablet Indications: Hypothyroidism, unspecified type Take 1 tablet (112 mcg) by mouth in the morning. Take before meals. 90 tablet 1 03/12/2025 06/10/2025 Active Start: 04-03-2024 take 1 tablet by [...] or 0.5 MG/DOSE,) 2 MG/3ML solution pen-injector (20 sources) Semaglutide,0.25 or 0.5MG/DOS, (Ozempic, 0.25 or [...] Once a day for 5 days Active 1 ml methylPREDNISolone acetate 40 mg/ml [...] sources) Depression; Translations: [Depression] Chronic Nutritional deficiencies (20 sources) Vitamin D deficiency; Translations: [Vitamin D deficiency, unspecified] Onset: 5 11-13-2024 Chronic Osteoarthritis (2 sources) Arthritis of left acromioclavicular joint; Translations: [Primary osteoarthritis, left shoulder] 11-20-2024 Chronic Other connective tissue disease (9 sources) Pain in right foot; Translations: [Pain in right foot] Onset: 5 05-21-2025 Episodic Other gastrointestinal disorders (1 source) Irritable [...] in joint, shoulder region] 11-19-2024 Episodic Other non-traumatic joint disorders (7 sources) Acute ankle pain; Translations: [Pain in right ankle and joints of right foot] Onset: 5 05-21-2025 Episodic Other nutritional; endocrine; and metabolic disorders (20 sources) Obesity caused by energy imbalance; Translations: [Class 1 obesity due to excess calories in adult] Onset: 4 05-08-2024 Chronic Other nutritional; endocrine; and metabolic disorders (20 sources) Hypocalcemia; Translations: [Hypocalcemia] Onset: 5 11-08-2024 Chronic Thyroid disorders (20 sources) Hypothyroidism; Translations: [Hypothyroidism, unspecified] Onset: 9 08-14-2019 Chronic Past or Other Problems Problem Classification Problem Date Documented Da te Episodic/Chronic Mood disorders (20 sources) Mood disorders Onset: 05-08-2024 05-08-2024 Other aftercare (20 sources) Long-term current use of insulin; 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] Onset: 08-23-2024 Resolved: 10-24-2024 08-23-2024 Episodic Other connective tissue disease (20 sources) Bursitis of left shoulder; Translations: [Bursitis [...] 04-04-2024 04-04-2024 Episodic Other upper respiratory infections (20 sources) Acute upper respiratory infection; Translations: [Acute [...] Range Facility HbA1c (Bld) [Mass fraction]o n 05-29-2025 Interpretation and review of laboratory results Normal [facility] - Hematology and Cell countson 05-29-2025 HbA1c (Bld) [Mass fraction] 6.9 % [facility] No Panel InformationOrdered By: Radiologist Radiology on 05-22-2025 [facility] Work Phone: No Panel Informationon 05-22 Radiology Study observation (narrative) [facility] XR ANKLE RT MIN 3Von [address] [place] [address] XRay Report Signed Patient: TANAY BLAKE MR#: [id number] : 1955 Acct:[id number] Age/Sex: 69 / F ADM Date: 05/22/25 Loc: RAD Attending Dr: Monika Castillo NP Ordering Physician: Monika Castillo NP Date of Service: 05/22/25 Procedure(s): XR ankle RT min 3V Accession Number(s): [id number] cc: Monika Castillo NP [address] [place] [address] Patient Name: TANYA BLAKE MRN: [facility]:[id number] date: 1955 Sex: F Assigned Patient Location: RAD Current Patient Location: RAD Accession/Order Number: [id number] Exam Date: 05/22/2025 13:31 Report Date: 05/22/2025 13:33 At the request of: MONIKA CASTILLO NP Procedure: XR foot RT min 3V RIGHT ANKLE - 3 views, right foot 3 views CLINICAL HISTORY: ACUTE RIGHT ANKLE PAIN AND SWELLING COMPARISON: None FINDINGS: Right ankle: No focal soft tissue abnormality. Ankle mortise appears intact. No acute bony process. Right foot: No focal soft tissue abnormality. No acute bony process is seen. Plantar spurring. No bony erosions. Mild degenerative changes talonavicular joint. XR/XR ankle RT min 3V IMPRESSION: NO ACUTE BONY PROCESS. Impression dictated by: Bogdan Bowles Jr., D.O. 05/22/2025 1:33 PM Dictation Location: [place] [address] Electronically authenticated by: [id number] Y Date: 05/22/2025 13:33 Dictated By: Bogdan Bowles M.D. Signed By: 05/22/25 1335 DD/ 32 TD/TT: Senior Storage Administrator: [facility] Radiology, Radiologist, MD - 05/22/2025 [place] [address] XRay Report Signed Patient: TANYA BLAKE MR#: [id number] : 1955 Acct:[id number] Age/Sex: 69 / F ADM Date: 05/22/25 Loc: RAD Attending Dr: Monika Castillo NP Ordering Physician: Monika Castillo NP Date of Service: 05/22/25 Procedure(s): XR ankle RT min 3V Accession Number(s): [id number] cc: Monika Castillo NP [place] [address] Patient Name: TANYA BLAKE MRN: [id number] date: 1955 Sex: F Assigned Patient Location: RAD Current Patient Location: RAD Accession/Order Number: [id number] Exam Date: 05/22/2025 13:31 Report Date: 05/22/2025 13:33 At the request of: MONIKA CASTILLO NP Procedure: XR foot RT min 3V RIGHT ANKLE - 3 views, right foot 3 views CLINICAL HISTORY: ACUTE RIGHT ANKLE PAIN AND SWELLING COMPARISON: None FINDINGS: Right ankle: No focal soft tissue abnormality. Ankle mortise appears intact. No acute bony process. Right foot: No focal soft tissue abnormality. No acute bony process is seen. Plantar spurring. No bony erosions. Mild degenerative changes talonavicular joint. XR/XR ankle RT min 3V IMPRESSION: NO ACUTE BONY PROCESS. Impression dictated by: Bogdan Bowles Jr., D.O. 05/22/2025 1:33 PM Dictation Location: [place] [address] Electronically authenticated by: [id number] Y Date: 05/22/2025 13:33 Dictated By: Bogdan Bowles M.D. Signed By: 05/22/25 1335 DD/ 133 TD/TT: Senior Storage Administrator: [facility] XR FOOT RT MIN 3Von 05-22-20 [place] [address] XRay Report Signed Patient: TANYA BLAKE MR#: [id number] : 1955 Acct:[id number] Age/Sex: 69 / F ADM Date: 05/22/25 Loc: [facility] Attending Dr: Monika Castillo NP Ordering Physician: Monika Castillo NP Date of Service: 05/22/25 Procedure(s): XR foot RT min 3V Accession Number(s): [id number] cc: Monika Castillo NP [place] [address] Patient Name: TANYA BLAKE MRN: [facility]:[id number] date: 1955 Sex: F Assigned Patient Location: [facility] Current Patient Location: RAD Accession/Order Number: [id number] Exam Date: 05/22/2025 13:31 Report Date: 05/22/2025 13:33 At the request of: MONIKA CASTILLO NP Procedure: XR foot RT min 3V RIGHT ANKLE - 3 views, right foot 3 views CLINICAL HISTORY: ACUTE RIGHT ANKLE PAIN AND SWELLING COMPARISON: None FINDINGS: Right ankle: No focal soft tissue abnormality. Ankle mortise appears intact. No acute bony process. Right foot: No focal soft tissue abnormality. No acute bony process is seen. Plantar spurring. No bony erosions. Mild degenerative changes talonavicular joint. XR/XR foot RT min 3V IMPRESSION: NO ACUTE BONY PROCESS. Impression dictated by: Bogdan Bowles Jr., D.O. 05/22/2025 1:33 PM Dictation Location: [place] [address] Electronically authenticated by: [id number] Y Date: 05/22/2025 13:33 Dictated By: Bogdan Bowles M.D. Signed By: 05/22/255 DD/ 32 TD/TT: Senior Storage Administrator: [facility] Radiology, Radiologist, - 05/22/2025 [place] [address] XRay Report Signed Patient: TANYA BLAKE MR#: [id number] : 1955 Acct:[id number] Age/Sex: 69 / F ADM Date: 05/22/25 Loc: [facility] Attending Dr: Monika Castillo NP Ordering Physician: Monika Castillo NP Date of Service: 05/22/25 Procedure(s): XR foot RT min 3V Accession Number(s): [id number] cc: Monika Castillo NP [place] [id number] Patient Name: TANYA BLAKE MRN: [id number] date: 1955 Sex: F Assigned Patient Location: [facility] Current Patient Location: [facility] Accession/Order Number: [id number] Exam Date: 05/22/2025 13:31 Report Date: 05/22/2025 13:33 At the request of: MONIKA CASTILLO NP Procedure: XR foot RT min 3V RIGHT ANKLE - 3 views, right foot 3 views CLINICAL HISTORY: ACUTE RIGHT ANKLE PAIN AND SWELLING COMPARISON: None FINDINGS: Right ankle: No focal soft tissue abnormality. Ankle mortise appears intact. No acute bony process. Right foot: No focal soft tissue abnormality. No acute bony process is seen. Plantar spurring. No bony erosions. Mild degenerative changes talonavicular joint. XR/XR foot RT min 3V IMPRESSION: NO ACUTE BONY PROCESS. Impression dictated by: Bogdan Bowles Jr., D.O. 05/22/2025 1:33 PM Dictation Location: [place] [address] Electronically authenticated by: [id number] Y Date: 05/22/2025 13:33 Dictated By: Bogdan Bowles M.D. Signed By: 05/22/251334 DD/ 32 TD/TT: Senior Storage Administrator: [facility] MM TOMOSYNTHESIS SCREENING B [facility] 05-06-2025 [place] [address] Mammography Report Signed Patient: TANYA BLAKE MR#: [id number] : 1955 Acct:[id number] Age/Sex: 69 / F ADM Date: 05/06/25 Loc: MAMMO Attending Dr: Monika Castillo NP Ordering Physician: Monika Castillo NP Results: Date of Service: 05/06/25 Follow Up: Procedure(s): MM tomosynthesis screening BI Accession Number(s): [id number] cc: Monika Castillo NP Patient Name: TANYA BLAKE MR#: [id number] : 1955 Exam Date: 05/06/2025 Ordering Doctor: PATRICK CASTILLO FACILITIES OPERATIONS TECHNICIAN RADIOLOGY REPORT PROCEDURE: MM TOMOSYNTHESIS SCREENING BI [...] uterine cancer at age 51. LOCATION: [facility] BREAST COMPOSITION: There are scattered areas [...] Signed By: 05/06/25 1553 DD/ 1552 TD/TT: Senior Storage Administrator: [facility] Radiology, Radiologist, MD - 05/06/2025 [place] [address] Mammography Report Signed Patient: TANYA BLAKE MR#: [id number] : 1955 Acct:[id number] Age/Sex: 69 / F ADM Date: 05/06/25 Loc: MAMMO Attending Dr: Monika Castillo NP Ordering Physician: Monika Castillo NP Results: Date of Service: 05/06/25 Follow Up: Procedure(s): MM tomosynthesis screening BI Accession Number(s): [id number] cc: Monika Castillo NP Patient Name: TANYA BLAKE MR#: [id number] : 1955 Exam Date: 05/06/2025 Ordering Doctor: [...] uterine cancer at age 51. LOCATION: [facility] BREAST COMPOSITION: There are scattered areas [...] Signed By: 05/06/25 1553 DD/ 1552 TD/TT: Senior Storage Administrator: [facility] Radiology Study observation (narrative) [facility] MM TOMOSYNTHESIS SCREENING B IOrdered By: Radiologist Radiology on 05-06-2025 [facility] Work Phone: [facility] VITAMIN D 25 OHon 2024 VITAMIN D 20.6 ng/mL [facility] Comment on above: <20 ng/mL Vit D defi cient 20-<30 ng/mL Vit D insufficient 30-100 ng/mL Vit D sufficient >100 ng/mL Potential Toxicity [facility] HbA1c (Bld) [Mass fraction]o n 12-26-2024 Interpretation and review of laboratory results Normal [facility] - Hematology and Cell countson 12-26-2024 HbA1c (Bld) [Mass fraction] 6.9 % [facility] No Panel Informationon 11-20 Mary Kay Womack, MANAGER DIABETES 11/20/2024 4:24 PM L Inj/Asp: L subacromial bursa on 11/20/2024 4:23 PM Indications: pain Details: 20 G needle, ultrasound-guided lateral approach Medications: 40 mg methylPREDNISolone acetate 40 MG/ML Outcome: tolerated well, no immediate complications Site cleaned with isopropyl alcohol Procedure, treatment alternatives, risks and benefits explained, specific risks discussed. Consent was given by the patient. [facility] XR Shoulder - left 2 Viewson 11-20-2024 [...] bony process left shoulder. Mary Kay Womack DIRECTOR OF VENDOR MANAGEMENT-FACILITIES OPERATIONS TECHNICIAN [facility] Radiology Study observation (narrative) [facility] VITAMIN D 25 OHon 2024 VITAMIN D 6.3 ng/mL [facility] Comment on above: <20 ng/mL Vit D defi cient 20-<30 ng/mL Vit D insufficient 30-100 ng/mL Vit D sufficient >100 ng/mL Potential Toxicity [facility] ALL CBC WITH AUTO DIFFon BASOPHILS ABSOLUTE AUTO 0.1 [facility] Basophils/100 WBC (Bld) 0.8 % 0.2 - 2.0 % [facility] Eosinophils/100 WBC (Bld) 1.7 % 0.9 - 7.0 % [facility] Erythrocyte distribution width (RBC) [Ratio] 13.1 % 11.0 - 15.0 % [facility] Hematocrit (Bld) [Volume fraction] 42.6 % 36.0 - 48.0 % [facility] Hemoglobin (Bld) [Mass/Vol] 14.2 g/dL 12.0 - 16.0 g/dL [facility] IMMATURE GRANULOCYTES ABS AUTO 0.02 [facility] Immature granulocytes/100 WBC (Bld) 0.3 % 0.0 - 0.5 % [facility] Interpretation and review of laboratory results Abnormal [facility] LYMPHOCYTES ABSOLUTE AUTO 1.7 [facility] Lymphocytes/100 WBC (Bld) 25.4 % 20.5 - 60.0 % [facility] MCH (RBC) [Entitic mass] 31.2 pg 26.7 - 34.0 pg [facility] MCHC (RBC) [Mass/Vol] 33.3 g/dL 29.9 - 35.2 g/dL [facility] MCV (RBC) [Entitic vol] 93.6 fL 81.0 - 99.0 fL [facility] MONOCYTES ABSOLUTE AUTO 0.6 [facility] Monocytes/100 WBC (Bld) 8.6 % 1.7 - 12.0 % [facility] NEUTROPHILS ABSOLUTE AUTO 4.2 [facility] Neutrophils/100 WBC (Bld) 63.2 % 43.0 - 75.0 % [facility] Platelet mean volume (Bld) [Entitic vol] 9.3 fL Low 9.5 - 13.5 fL [facility] EO # 0.1 [facility] PLT 361 [facility] RBC 4.55 [facility] WBC 6.6 [facility] HbA1c (Bld) [Mass fraction]o n 08-23-2024 Interpretation and review of laboratory results Normal [facility] - Hematology and Cell countson 08-23-2024 HbA1c (Bld) [Mass fraction] 6.6 % [facility] CBC AUTO DIFFon 03-10-2023 BASO # 0.0 103/ul Normal 0.0-0.1 [facility] Comment on above: Performed By: #### C BC #### [facility] [address] [place] [address] Dr. Almaz Hayward Basophils/100 WBC (Bld) 0.5 % Normal 0.2-2.0 [facility] Comment on above: Performed By: #### C BC #### [facility] [address] [place] [address] Dr. Almaz Hayward EO # 0.0 103/ul Normal 0.0-0.7 [facility] Comment on above: Performed By: #### C BC #### [facility] [address] [place] [address] Dr. Almaz Hayward Eosinophils/100 WBC (Bld) 0.5 % Critically low 0.9-7.0 [facility] Comment on above: Performed By: #### C BC #### [facility] [address] [place] [address] Dr. Almaz Hayward Erythrocyte distribution width (RBC) [Ratio] 12.6 % Normal 11.0-15.0 [facility] Comment on above: Performed By: #### C BC #### [facility] [address] [place] [address] Dr. Almaz Hayward Hematocrit (Bld) [Volume fraction] 46.3 % Normal 36.0-48.0 [facility] Comment on above: Performed By: #### C BC #### [facility] [address] [place] [address] Dr. Almaz Hayward Hemoglobin (Bld) [Mass/Vol] 15.8 g/dL Normal 12.0-16.0 [facility] Comment on above: Performed By: #### C BC #### [facility] [address] [place] [address] Dr. Almaz Hayward IG # 0.02 10e3/ul Normal 0.00-0.03 [facility] Comment on above: Performed By: #### C BC #### [facility] [address] [place] [address] Dr. Almaz Hayward IG % 0.3 % Normal 0.0-0.5 [facility] Comment on above: Performed By: #### C BC #### [facility] [address] [place] [address] Dr. Almaz Hayward LYMPH # 1.3 103/ul Normal 1.2-3.8 [facility] Comment on above: Performed By: #### C BC #### [facility] [address] [place] [address] Dr. Almaz Hayward Lymphocytes/100 WBC (Bld) 22.8 % Normal 20.5-60.0 [facility] Comment on above: Performed By: #### C BC #### [facility] [address] [place] [address] Dr. Almaz Hayward MANUAL DIFF REQ NO Normal [facility] Comment on above: Performed By: #### C BC #### [facility] [address] [place] [address] [address] Almaz Haywadr MCH (RBC) [Entitic mass] 30.9 pg Normal 26.7-34.0 [facility] Comment on above: Performed By: #### C BC #### [facility] [address] [place] [address] [address] Almaz Hayward MCHC (RBC) [Mass/Vol] 34.1 g/dL Normal 29.9-35.2 [facility] Comment on above: Performed By: #### C BC #### [facility] [address] [place] [address] Dr. Almaz Hayward MCV (RBC) [Entitic vol] 90.4 fL Normal 81.0-99.0 [facility] Comment on above: Performed By: #### C BC #### [facility] [address] [place] [address] Dr. Almaz Hayward MONO # 0.3 103/ul Normal 0.3-0.8 [facility] Comment on above: Performed By: #### C BC #### [facility] [address] [place] [address] Dr. Almaz Hayward Monocytes/100 WBC (Bld) 5.6 % Normal 1.7-12.0 [facility] Comment on above: Performed By: #### C BC #### [facility] [address] [place] [address] Dr. Almaz Hayward NEUT # 4.1 103/ul Normal 1.4-6.5 [facility] Comment on above: Performed By: #### C BC #### [facility] [address] [place] [address] Dr. Almaz Hayward Neutrophils/100 WBC (Bld) 70.3 % Normal 43.0-75.0 [facility] Comment on above: Performed By: #### C BC #### [facility] [address] [place] [address] Dr. Almaz Hayward Platelet mean volume (Bld) [Entitic vol] 9.1 fL Critically low 9.5-13.5 [facility] Comment on above: Performed By: #### C BC #### [facility] [address] [place] [address] [address] Almaz Hayward PLT 321 103/ul Normal 150-450 [facility] Comment on above: Performed By: #### C BC #### [facility] [address] [place] [address] Dr. Almaz Hayward RBC 5.12 106/ul Normal 4.20-5.40 [facility] Comment on above: Performed By: #### C BC #### [facility] [address] [place] [address] Dr. Almaz Hayward WBC 5.9 103/ul Normal 4.0-11.0 [facility] Comment on above: Performed By: #### C BC #### [facility] [address] [place] [address] Dr. Almaz Hayward FREE T4on 03-10-2023 Free T4 [Mass/Vol] 1.09 ng/dL Normal 0.76-1.46 [facility] Comment on above: Performed By: #### F T4 #### [facility] [address] [place] [address] Dr. Almaz Hayward GLYCOHEMOGLOBIN A1Con 2022 ADA RECOMMENDATION SEE BELOW Normal [facility] Comment on above: Result Comment: ADA RECOMMENDED LIMIT 4.0 - 6.0 ADA THERAPEUTIC TARGET < 7.0 ACTION SUGGESTED > 7.0 Performed By: #### A 1C #### [facility] [address] [place] [address] Dr. Almaz Hayward Glucose [Mass/Vol] 278 mg/dL Normal [facility] Comment on above: Performed By: #### A 1C #### [facility] [address] [place] [address] Dr. Almaz Hayward HbA1c (Bld) [Mass fraction] 11.3 % Critically high 4.5-6.2 [facility] Comment on above: Performed By: #### A 1C #### [facility] [address] [place] [address] Dr. Almaz Hayward PROF 14(COMP METB)on 023 Albumin [Mass/Vol] 3.8 g/dL Normal 3.4-5.0 [facility] Comment on above: Performed By: #### T WEN, CMP #### [facility] [address] [place] [address] Dr. Almaz Hayward Albumin/Globulin [Mass ratio] 0.9 {ratio} Normal [facility] Comment on above: Performed By: #### T WEN, CMP #### [facility] [address] [place] [address] Dr. Almaz Hayward ALP [Catalytic activity/Vol] 114 U/L Normal 46-116 [facility] Comment on above: Performed By: #### T WEN, CMP #### [facility] [address] [place] [address] Dr. Almaz Hayward ALT [Catalytic activity/Vol] 25 U/L Normal 14-59 [facility] Comment on above: Performed By: #### T WEN, CMP #### [facility] [address] [place] [address] Dr. Almaz Hayward Anion gap [Moles/Vol] 14.9 mmol/L [facility] Comment on above: Performed By: #### T WEN, CMP #### [facility] [address] [place] [address] Dr. Almaz Hayward AST [Catalytic activity/Vol] 12 U/L Critically low 15-37 [facility] Comment on above: Performed By: #### T WEN, CMP #### [facility] [address] [place] [address] Dr. Almaz Hayward Bilirubin [Mass/Vol] 0.7 mg/dL Normal 0.2-1.0 [facility] Comment on above: Performed By: #### T WEN, CMP #### [facility] [address] [place] [address] Dr. Almaz Hayward Calcium [Mass/Vol] 9.3 mg/dL Normal 8.5-10.1 [facility] Comment on above: Performed By: #### T WEN, CMP #### [facility] [address] [place] [address] Dr. Almaz Hayward Chloride [Moles/Vol] 98 mmol/L Normal 98-107 [facility] Comment on above: Performed By: #### T SH, CMP #### [facility] [address] [place] [address] Dr. Almaz Hayward CO2 [Moles/Vol] 26.9 mmol/L Normal 21.0-32.0 [facility] Comment on above: Performed By: #### T SH, CMP #### [facility] [address] [place] [address] Dr. Almaz Hayward Creatinine [Mass/Vol] 0.89 mg/dL Normal 0.55-1.02 [facility] Comment on above: Performed By: #### T SH, CMP #### [facility] [address] [place] [address] Dr. Almaz Hayward EGFR-AF NIUEAN >60 Normal >=60 [facility] Comment on above: Performed By: #### T WEN, CMP #### [facility] [address] [place] [address] Dr. Almaz Hayward EGFR-NON AF NIUEAN >60 Normal >=60 [facility] Comment on above: Performed By: #### T SH, CMP #### [facility] [address] [place] [address] Dr. Almaz Hayward Globulin (S) [Mass/Vol] 4.2 g/dL Normal [facility] Comment on above: Performed By: #### T WEN, CMP #### [facility] [address] [place] [address] Dr. Almaz Hayward Glucose [Mass/Vol] 304 mg/dL Critically high 74-106 [facility] Comment on above: Performed By: #### T SH, CMP #### [facility] [address] [place] [address] Dr. Almaz Hayward Potassium [Moles/Vol] 3.8 mmol/L Normal 3.5-5.1 [facility] Comment on above: Performed By: #### T SH, CMP #### [facility] [address] [place] [address] Dr. Almaz Hayward Protein [Mass/Vol] 8.0 g/dL Normal 6.4-8.2 [facility] Comment on above: Performed By: #### T WEN, CMP #### [facility] [address] [place] [address] Dr. Almaz Hayward Sodium [Moles/Vol] 136 mmol/L Normal 136-145 [facility] Comment on above: Performed By: #### T WEN, CMP #### [facility] [address] [place] [address] Dr. Almaz Hayward Urea nitrogen [Mass/Vol] 10.0 mg/dL Normal 7.0-18.0 [facility] Comment on above: Performed By: #### T WEN, CMP #### [facility] [address] [place] [address] Dr. Almaz Hayward Urea nitrogen/Creatinine [Mass ratio] 11.2 mg/mg Normal [facility] Comment on above: Performed By: #### T WEN, CMP #### [facility] [address] [place] [address] Dr. Almaz Hayward TSHon 03-10-2023 TSH 2.289 uIU/mL Normal 0.358-3.740 [facility] Comment on above: Performed By: #### C VDTB #### [facility] [address] [place] [address] Dr. Almaz Hayward CBC AUTO DIFFon 04-08-2022 BASO # 0.1 103/ul Normal 0.0-0.1 [facility] Comment on above: Performed By: #### C IAMTB #### [facility] [address] [place] [address] Dr. Almaz Hayward Basophils/100 WBC (Bld) 0.6 % Normal 0.2-2.0 [facility] Comment on above: Performed By: #### C VDTBH #### [facility] [address] [place] [address] Dr. Almaz Hayward EO # 0.1 103/ul Normal 0.0-0.7 [facility] Comment on above: Performed By: #### C IAMTBH #### [facility] [address] [place] [address] Dr. Almaz Hayward Eosinophils/100 WBC (Bld) 1.2 % Normal 0.9-7.0 [facility] Comment on above: Performed By: #### C VDTBH #### [facility] [address] [place] [address] Dr. Almaz Hayward Erythrocyte distribution width (RBC) [Ratio] 12.9 % Normal 11.0-15.0 [facility] Comment on above: Performed By: #### C VDTBH #### [facility] [address] [place] [address] Dr. Almaz Hayward Hematocrit (Bld) [Volume fraction] 43.1 % Normal 36.0-48.0 [facility] Comment on above: Performed By: #### C VDTBH #### [facility] [address] [place] [address] Dr. Almaz Hayward Hemoglobin (Bld) [Mass/Vol] 14.5 g/dL Normal 12.0-16.0 [facility] Comment on above: Performed By: #### C VDTBH #### [facility] [address] [place] [address] Dr. Almaz Hayward IG # 0.04 10e3/ul Critically high 0.00-0.03 [facility] Comment on above: Performed By: #### C VDTBH #### [facility] [address] [place] [address] Dr. Almaz Hayward IG % 0.5 % Normal 0.0-0.5 [facility] Comment on above: Performed By: #### C VDTBH #### [facility] [address] [place] [address] Dr. Almaz Hayward LYMPH # 1.6 103/ul Normal 1.2-3.8 [facility] Comment on above: Performed By: #### C VDTBH #### [facility] [address] [place] [address] Dr. Almaz Hayward Lymphocytes/100 WBC (Bld) 20.1 % Critically low 20.5-60.0 [facility] Comment on above: Performed By: #### C VDTBH #### [facility] [address] [place] [address] Dr. Almaz Hayward MANUAL DIFF REQ NO Normal [facility] Comment on above: Performed By: #### C VDTBH #### [facility] [address] [place] [address] Dr. Almaz Hayward MCH (RBC) [Entitic mass] 31.3 pg Normal 26.7-34.0 [facility] Comment on above: Performed By: #### C VDTBH #### [facility] [address] [place] [address] Dr. Almaz Hayward MCHC (RBC) [Mass/Vol] 33.6 g/dL Normal 29.9-35.2 [facility] Comment on above: Performed By: #### C VDTBH #### [facility] [address] [place] [address] Dr. Almaz Hayward MCV (RBC) [Entitic vol] 93.1 fL Normal 81.0-99.0 [facility] Comment on above: Performed By: #### C VDTBH #### [facility] [address] [place] [address] Dr. Almaz Hayward MONO # 0.5 103/ul Normal 0.3-0.8 [facility] Comment on above: Performed By: #### C VDTBH #### [facility] [address] [place] [address] Dr. Almaz Hayward Monocytes/100 WBC (Bld) 7.0 % Normal 1.7-12.0 [facility] Comment on above: Performed By: #### C VDTBH #### [facility] [address] [place] [address] Dr. Almaz Hayward NEUT # 5.5 103/ul Normal 1.4-6.5 [facility] Comment on above: Performed By: #### C VDTBH #### [facility] [address] [place] [address] Dr. Almaz Hayward Neutrophils/100 WBC (Bld) 70.6 % Normal 43.0-75.0 [facility] Comment on above: Performed By: #### C VDTBH #### [facility] [address] [address] [address] Almaz Hayward Platelet mean volume (Bld) [Entitic vol] 9.1 fL Critically low 9.5-13.5 [facility] Comment on above: Performed By: #### C VDTBH #### [facility] [address] [address] [address] Almaz Hayward PLT 364 103/ul Normal 150-450 [facility] Comment on above: Performed By: #### C VDTBH #### [facility] [address] [address] [address] Almaz Hayward RBC 4.63 106/ul Normal 4.20-5.40 [facility] Comment on above: Performed By: #### C VDTBH #### [facility] [address] [address] [address] Almaz Hayward WBC 7.7 103/ul Normal 4.0-11.0 [facility] Comment on above: Performed By: #### C VDTBH #### [facility] [address] [address] [address] Almaz Hayward Covid-19 PCR ([facility])on 03-17 SARS-CoV-2 (COVID-19) RNA TI+probe Ql (Unsp spec) Not detected Normal NOT DETECTED [facility] Comment on above: Result Comment: When [...] for this test is supported by the Ultrasound Specialist of Health and Human Service's declaration that [...] used). Performed By: #### C VDTBH #### [facility] [address] [place] [address] Dr. Almaz Hayward FREE T4on 04-08-2022 Free T4 [Mass/Vol] 1.29 ng/dL Normal 0.76-1.46 [facility] Comment on above: Performed By: #### F T4 #### [facility] [address] [place] [address] Dr. Almaz Hayward GLYCOHEMOGLOBIN A1Con 2021 ADA RECOMMENDATION SEE BELOW Normal [facility] Comment on above: Result Comment: ADA RECOMMENDED LIMIT 4.0 - 6.0 ADA THERAPEUTIC TARGET < 7.0 ACTION SUGGESTED > 7.0 Performed By: #### A 1C #### [facility] [address] [place] [address] Dr. Almaz Hayward Glucose [Mass/Vol] 163 mg/dL Normal [facility] Comment on above: Performed By: #### A 1C #### [facility] [address] [place] [address] Dr. Almaz Hayward HbA1c (Bld) [Mass fraction] 7.3 % Critically high 4.5-6.2 [facility] Comment on above: Performed By: #### A 1C #### [facility] [address] [place] [address] Dr. Almaz Hayward LIPID PROFILEon 04-08-2022 CHOL-HDL RATIO NORM SEE BELOW Normal [facility] Comment on above: Result Comment: 3.3 - 4.4 LOW RISK 4.4 - 7.1 AVERAGE RISK 7.1 - 11.0 MODERATE RISK >11.0 HIGH RISK Performed By: #### T SH, CMP, LIPID #### [facility] [address] [place] [address] Dr. Almaz Hayward Cholesterol [Mass/Vol] 160 mg/dL Normal <=200 [facility] Comment on above: Performed By: #### T SH, CMP, LIPID #### [facility] [address] [place] [address] Dr. Almaz Hayward Cholesterol in HDL [Mass/Vol] 43 mg/dL Normal 40-60 [facility] Comment on above: Performed By: #### T SH, CMP, LIPID #### [facility] [address] [address] [address] Almaz Hayward Cholesterol in LDL [Mass/Vol] 66.6 mg/dL Normal [facility] Comment on above: Performed By: #### T SH, CMP, LIPID #### [facility] [address] [place] [address] Dr. Almaz Hayward Cholesterol.total/Chol esterol in HDL [Mass ratio] 3.7 {ratio} Normal [facility] Comment on above: Performed By: #### T SH, CMP, LIPID #### [facility] [address] [place] [address] Dr. Almaz Hayward HDL NORMAL > or = 60 mg/dl - LO W CARDIOVASCULAR RISK <40 mg/dl - HIGH CARDIOVASCULAR RISK Normal [facility] Comment on above: Performed By: #### T SH, CMP, LIPID #### [facility] [address] [place] [address] Dr. Almaz Hayward LDL CALC NORMAL SEE BELOW Normal [facility] Comment on above: Result Comment: <100 mg/dl OPTIMAL 100 - 129 mg/dl NEAR OR ABOVE OPTIMAL 130 - 159 mg/dl BORDERLINE HIGH 160 - 189 mg/dl HIGH >190 mg/dl VERY HIGH Performed By: #### T SH, CMP, LIPID #### [facility] [address] [place] [address] Dr. Almaz Hayward Triglyceride [Mass/Vol] 252 mg/dL Critically high <=150 [facility] Comment on above: Performed By: #### T SH, CMP, LIPID #### [facility] [address] [place] [address] Dr. Almaz Hayward VLDL CALC 50.4 mg/dL Normal [facility] Comment on above: Performed By: #### T SH, CMP, LIPID #### [facility] [address] [place] [address] Dr. Almaz Hayward PROF 14(COMP METB)on 06-24-2 022 Albumin [Mass/Vol] 3.5 g/dL Normal 3.4-5.0 [facility] Comment on above: Performed By: #### T WEN, CMP, LIPID #### [facility] [address] [address] [address] Almaz Hayward Albumin/Globulin [Mass ratio] 0.9 {ratio} Normal [facility] Comment on above: Performed By: #### T WEN, CMP, LIPID #### [facility] [address] [address] [address] Almaz Hayward ALP [Catalytic activity/Vol] 110 U/L Normal 46-116 [facility] Comment on above: Performed By: #### T WEN, CMP, LIPID #### [facility] [address] [address] [address] Almaz Hayward ALT [Catalytic activity/Vol] 26 U/L Normal 14-59 [facility] Comment on above: Performed By: #### T WEN, CMP, LIPID #### [facility] [address] [address] [address] Almaz Hayward Anion gap [Moles/Vol] 12.9 mmol/L [facility] Comment on above: Performed By: #### T WEN, CMP, LIPID #### [facility] [address] [place] [address] Dr. Almaz Hayward AST [Catalytic activity/Vol] 10 U/L Critically low 15-37 [facility] Comment on above: Performed By: #### T WEN, CMP, LIPID #### [facility] [address] [address] [address] Almaz Hayward Bilirubin [Mass/Vol] 0.8 mg/dL Normal 0.2-1.0 [facility] Comment on above: Performed By: #### T WEN, CMP, LIPID #### [facility] [address] [address] [address] Almaz Hayward Calcium [Mass/Vol] 8.7 mg/dL Normal 8.5-10.1 [facility] Comment on above: Performed By: #### T WEN, CMP, LIPID #### [facility] [address] [address] [address] Almaz Hayward Chloride [Moles/Vol] 104 mmol/L Normal 98-107 [facility] Comment on above: Performed By: #### T SH, CMP, LIPID #### [facility] [address] [place] [address] Dr. Almaz Hayward CO2 [Moles/Vol] 27.0 mmol/L Normal 21.0-32.0 [facility] Comment on above: Performed By: #### T SH, CMP, LIPID #### [facility] [address] [place] [address] Dr. Almaz Hayward Creatinine [Mass/Vol] 0.71 mg/dL Normal 0.55-1.02 [facility] Comment on above: Performed By: #### T WEN, CMP, LIPID #### [facility] [address] [place] [address] Dr. Almaz Hayward EGFR-AF NIUEAN >60 Normal >=60 [facility] Comment on above: Performed By: #### T WEN, CMP, LIPID #### [facility] [address] [place] [address] Dr. Almaz Hayward EGFR-NON AF NIUEAN >60 Normal >=60 [facility] Comment on above: Performed By: #### T WEN CMP, LIPID #### [facility] [address] [place] [address] Dr. Almaz Hayward Globulin (S) [Mass/Vol] 4.1 g/dL Normal [facility] Comment on above: Performed By: #### T WNE, CMP, LIPID #### [facility] [address] [place] [address] Dr. Almaz Hayward Glucose [Mass/Vol] 169 mg/dL Critically high 74-106 [facility] Comment on above: Performed By: #### T SH, CMP, LIPID #### [facility] [address] [place] [address] Dr. Almaz Hayward Potassium [Moles/Vol] 3.9 mmol/L Normal 3.5-5.1 [facility] Comment on above: Performed By: #### T SH, CMP, LIPID #### [facility] [address] [address] [address] Almaz Hayward Protein [Mass/Vol] 7.6 g/dL Normal 6.4-8.2 [facility] Comment on above: Performed By: #### T SH, CMP, LIPID #### [facility] [address] [address] [address] Almaz Hayward Sodium [Moles/Vol] 140 mmol/L Normal 136-145 [facility] Comment on above: Performed By: #### T SH, CMP, LIPID #### [facility] [address] [address] [address] Almaz Hayward Urea nitrogen [Mass/Vol] 10.0 mg/dL Normal 7.0-18.0 [facility] Comment on above: Performed By: #### T SH, CMP, LIPID #### [facility] [address] [place] [address] Dr. Almaz Hayward Urea nitrogen/Creatinine [Mass ratio] 14.1 mg/mg Normal [facility] Comment on above: Performed By: #### T SH, CMP, LIPID #### [facility] [address] [address] [address] Almaz Hayward TSHon 04-08-2022 TSH 0.096 uIU/mL Critically low 0.358-3.740 [facility] Comment on above: Performed By: #### T SH, CMP, LIPID #### [facility] [address] [place] [address] Dr. Almaz Stewart Abon 11-02-2019 Dontae tp. B1 1:80 Normal <1:10 [facility] Comment on above: Performed By: #### C DP, TROPI, BMP, CRP, SED #### [employer] [facility] [place] [address] Academic Success Coordinator: MD Dontae Moran tp. B2 1:80 Normal <1:10 [facility] Comment on above: Performed By: #### C DP, TROPI, BMP, CRP, SED #### [employer] [address] [place] [address] Academic Success Coordinator: MD Dontae Moran. B3 1:320 Normal <1:10 [facility] Comment on above: Performed By: #### C DP, TROPI, BMP, CRP, SED #### [facility] [address] [place] [id number] Academic Success Coordinator: MD Dontae Moran. B4 1:320 Normal <1:10 [facility] Comment on above: Performed By: #### C DP, TROPI, BMP, CRP, SED #### [facility] [address] [place] [id number] Academic Success Coordinator: MD Dontae Moran. B5 1:20 Normal <1:10 [facility] Comment on above: Performed By: #### C DP, TROPI, BMP, CRP, SED #### [facility] [address] [place] [phone] Academic Success Coordinator: MD Dontae Moran. B6 <1:10 Normal <1:10 [facility] Comment on above: Result Comment: (NOT E) INTERPRETIVE INFORMATION: Coxsackie B Virus Single positive antibody titers of greater than or equal to 1:80 may indicate past or current infection. Sero- conversion or an increase in titers between acute and convalescent sera of at least fourfold is considered strong evidence of current or recent infection. Performed by [employer], [address] [place] [id number] [email or web address], Clive Dowell MD, Lab. Director Performed By: #### C DP, TROPI, BMP, CRP, SED #### [facility] [address] [place] [phone] Academic Success Coordinator: Campos Escobedo MD XR CHEST STANDARD (2 VW)Orde red By: Juanjo Coates on 10-21-2019 Interval decrease in the left effusion and improved aeration of the lung bases. No new airspace disease in the interval. [employer] Phone: EXAMINATION: TWO XRA Y VIEWS OF [...] appear unchanged. No acute osseous abnormality identified. [employer] Phone: [employer], [employer] Incoming Radiant Results From [employer] - 10/21/2019 1:50 PM EST EXAMINATION: TWO [...] No new airspace disease in the interval. [employer] Phone: Cult,Mycobacteriaon 10-07-20 19 Cult,Mycobacteria Specimen Description .THORACENTESIS FLUID Special Requests NOT REPORTED Direct Exam NO ACID FAST BACILLI SEEN (CONCENTRATED SMEAR) Culture NO GROWTH 44 DAYS Report Status FINAL 10/07/2019 Normal [facility] Comment on above: Performed By: #### C DP, TROPI, BMP, CRP, SED #### [employer] [address] [place] [id number] Academic Success Coordinator: Campos Escobedo MD Cult,Mycobacteria Specimen Description .PERICARDIAL FLUID Special Requests NOT REPORTED Direct Exam NO ACID FAST BACILLI SEEN (CONCENTRATED SMEAR) Culture NO GROWTH 45 DAYS Report Status FINAL 10/07/2019 Normal [facility] Comment on above: Performed By: #### C DP, TROPI, BMP, CRP, SED #### [employer] [address] [place] [id number] Academic Success Coordinator: Campos Escobedo MD Cult,Funguson 09-23-2019 Cult,Fungus Specimen Description .THORACENTESIS FLUID Special Requests NOT REPORTED Culture NO GROWTH 31 DAYS Report Status FINAL 09/23/2019 [facility] Comment on above: Performed By: #### C DP, TROPI, BMP, CRP, SED #### [facility] [place], [place] [phone] Academic Success Coordinator: Campos Escobedo MD Cult,Fungus Specimen Description .HEART Special Requests .TISSUE Culture NO GROWTH 33 DAYS Report Status FINAL 09/23/2019 [facility] Comment on above: Performed By: #### C DP, TROPI, BMP, CRP, SED #### [facility] [address] [place] [address] [phone] Academic Success Coordinator: Campos Escobedo MD Cult,Fungus Specimen Description .PERICARDIAL FLUID Special Requests NOT REPORTED Culture NO GROWTH 33 DAYS Report Status FINAL 09/23/2019 [facility] Comment on above: Performed By: #### C DP, TROPI, BMP, CRP, SED #### [facility] [address] [place] [address] [phone] Academic Success Coordinator: Campos Escobedo MD ECHO Limitedon 09-04-2019 Transthoracic Echocardiography Report (TTE) Patient Name LBAKE Date of Study 09/04/2019 TANYA Date of 1955 Gender Female Age 64 year(s) Race Room Number Height: 65 inch, 165.1 cm Corporate ID [id number] Weight: 175 pounds, 79.4 kg # Patient Acct [id number] BSA: 1.87 m^2 BMI: 29.12 # kg/m^2 MR # [id number] Front Office Director Alessandra Henry Interpreting Physician Geoff Burr Fellow Referring Nurse Practitioner Interpreting Referring Physician HAN Story Fellow Type of Study TTE procedure:2D Echocardiogram, Limited Echo. Procedure Date Date: 09/04/2019 Start: 09:01 AM Study Location: [facility] Technical Quality: Good visualization History / Tech. [...] space suggestive of adipose tissue is seen. [facility] [place] [employer], [employer] Incoming Cardio Results From [facility] - 09/04/2019 12:26 PM EST Transthoracic Echocardiography Report (TTE) Patient Name BLAKE Date of Study 09/04/2019 TANYA Date of 1955 Gender Female Age 64 year(s) Race Room Number Height: 65 inch, 165.1 cm Corporate ID [id number] Weight: 175 pounds, 79.4 kg # Patient Acct [id number] BSA: 1.87 m^2 BMI: 29.12 # kg/m^2 MR # [id number] Front Office Director Alessandra Henry Interpreting Physician Geoff Burr Fellow Referring Nurse Practitioner Interpreting Referring Physician AHN Story Fellow Type of Study TTE procedure:2D Echocardiogram, Limited Echo. Procedure Date Date: 09/04/2019 Start: 09:01 AM Study Location: [facility] Technical Quality: Good visualization History / Tech. [...] space suggestive of adipose tissue is seen. [place], [place] Cult,Fluidon 08-29-2019 Cult,Fluid Specimen Description .THORACENTESIS FLUID Special Requests NOT REPORTED Direct Exam MODERATE NEUTROPHILS NO BACTERIA SEEN Gram stain made from cytocentrifuged specimen. Organisms and cells will be concentrated. Culture NO GROWTH 6 DAYS Report Status FINAL 08/29/2019 Normal [facility] Comment on above: Performed By: #### C DP, TROPI, BMP, CRP, SED #### [employer] [address] [place] [id number] Academic Success Coordinator: Campos Escobedo MD Fluid Cell Count and Diffon 08-27-2019 Other Cells MONOCYTES, MESOTHELI AL CELLS Normal [facility] Comment on above: Result Comment: The reference range and other method performance specifications have not been established for this body fluid. The test result must be integrated into the clinical context for interpretation. Performed By: #### C DP, TROPI, BMP, CRP, SED #### [employer] [address] [place] [address] [phone] Academic Success Coordinator: Campos Escobedo MD LOIS Screenon 08-26-2019 LOIS Screen Negative Normal NEG [facility] Comment on above: Result Comment: This test was run on the [employer] LOIS test system. The system provides ten test results (HEp-2NA, dsDNA, SSA, SSB, Sm, CASINO WORKER, Scl-70, Leonor-1, Centromere and Histone analytes) from a single patient sample. A negative LOIS screen indicates that the specimen was negative for all ten markers. Performed By: #### C DP, TROPI, BMP, CRP, SED #### [address] [id number] Academic Success Coordinator: Campos Escobedo MD LOIS Screen Negative Normal NEG [facility] Comment on above: Result Comment: This test was run on the [employer] LOIS test system. The system provides ten test results (HEp-2NA, dsDNA, SSA, SSB, Sm, CASINO WORKER, Scl-70, Leonor-1, Centromere and Histone analytes) from a single patient sample. A negative LOIS screen indicates that the specimen was negative for all ten markers. Performed By: #### C DP, TROPI, BMP, CRP, SED #### [address] [id number] Academic Success Coordinator: Campos Escobedo MD Anti CCPon 08-26-2019 Anti CCP <1.5 Normal <4.0 [facility] Comment on above: Result Comment: Reference Range: 0.0-4.0 U/mL Non Reactive/Negative >4.0 U/mL Reactive/Positive Performed By: #### C DP, TROPI, BMP, CRP, SED #### [place] [address] Academic Success Coordinator: MD Dontae Moran 08-26-2019 Dontae garcia B1 1:160 Normal <1:10 [facility] Comment on above: Performed By: #### C DP, TROPI, BMP, CRP, SED #### [address] [id number] Academic Success Coordinator: MD Dontae Moran. B2 1:320 Normal <1:10 [facility] Comment on above: Performed By: #### C DP, TROPI, BMP, CRP, SED #### [facility] [address] [place] [address] Academic Success Coordinator: MD Dontae Moran. B3 1:160 Normal <1:10 [facility] Comment on above: Performed By: #### C DP, TROPI, BMP, CRP, SED #### [facility] [address] [place] [address] Academic Success Coordinator: MD Dontae Moran. B4 1:160 Normal <1:10 [facility] Comment on above: Performed By: #### C DP, TROPI, BMP, CRP, SED #### [address] [address] Academic Success Coordinator: MD Dontae Moran. B5 1:20 Normal <1:10 [facility] Comment on above: Performed By: #### C DP, TROPI, BMP, CRP, SED #### [address] [address] Academic Success Coordinator: MD Dontae Moran. B6 <1:10 Normal <1:10 [facility] Comment on above: Result Comment: (NOT E) INTERPRETIVE INFORMATION: Coxsackie B Virus Single positive antibody titers of greater than or equal to 1:80 may indicate past or current infection. Sero- conversion or an increase in titers between acute and convalescent sera of at least fourfold is considered strong evidence of current or recent infection. Performed by [facility], [address] [place] [id number] [facility], Clive Dowell MD, Lab. Director Performed By: #### C DP, TROPI, BMP, CRP, SED #### [address] [address] Academic Success Coordinator: Campos Escobedo MD Cult,Aerobe/Anaerobeon 08-26 Cult,Aerobe/Anaerobe Specimen Descriptio n .PERITONEAL FLUID Special Requests NOT REPORTED Direct Exam FEW NEUTROPHILS NO BACTERIA SEEN Culture NO GROWTH 5 DAYS Report Status FINAL 08/26/2019 [facility] Comment on above: Performed By: #### C DP, TROPI, BMP, CRP, SED #### [address] [address] Academic Success Coordinator: Campos Escobedo MD Cult,Tissueon 08-26-2019 Cult,Tissue Specimen Description .HEART Special Requests NOT REPORTED Direct Exam RARE NEUTROPHILS NO BACTERIA SEEN Culture NO GROWTH 5 DAYS Report Status FINAL 08/26/2019 [facility] Comment on above: Performed By: #### C DP, TROPI, BMP, CRP, SED #### [address] [phone] Academic Success Coordinator: Campos Escobedo MD APTTon 08-24-2019 aPTT Coag (Bld) [Time] 23.9 s Normal 20.5-30.5 [facility] Comment on above: Performed By: #### C DP, TROPI, BMP, CRP, SED #### [address] [address] Academic Success Coordinator: Campos Escobedo MD Basic Metabolic Profon 08-24 (cont.) [facility] Comment on above: Result Comment: Aver age GFR for 60-69 years old: 85 mL/min/1.73sq m Chronic Kidney Disease: <60 mL/min/1.73sq m Kidney failure: <15 mL/min/1.73sq m eGFR calculated using average adult body mass. Additional eGFR calculator available at: http://www.[employer].com/multiple_crcl_2012.htm Performed By: #### C DP, TROPI, BMP, CRP, SED #### [address] [id number] Academic Success Coordinator: Campos Escobedo MD Anion gap [Moles/Vol] 12 mmol/L Normal 9-17 [facility] Comment on above: Performed By: #### C DP, TROPI, BMP, CRP, SED #### [facility] [employer] [address] [place] [address] Academic Success Coordinator: Campos Escobedo MD Calcium [Mass/Vol] 8.7 mg/dL Normal 8.6-10.4 [facility] Comment on above: Performed By: #### C DP, TROPI, BMP, CRP, SED #### [facility] [employer] [address] [place] [address] Academic Success Coordinator: Campos Escobedo MD Chloride [Moles/Vol] 102 mmol/L Normal 98-107 [facility] Comment on above: Performed By: #### C DP, TROPI, BMP, CRP, SED #### [address] [address] Academic Success Coordinator: Campos Escobedo MD CO2 [Moles/Vol] 23 mmol/L Normal 20-31 [facility] Comment on above: Performed By: #### C DP, TROPI, BMP, CRP, SED #### [facility] [employer] [address] [place] [address] Academic Success Coordinator: Campos Escobedo MD Creatinine [Mass/Vol] 0.54 mg/dL Normal 0.50-0.90 [facility] Comment on above: Performed By: #### C DP, TROPI, BMP, CRP, SED #### [facility] [employer] [address] [place] [address] Academic Success Coordinator: Campos Escobedo MD GFR, Amer >60 Normal >60 [facility] Comment on above: Performed By: #### C DP, TROPI, BMP, CRP, SED #### [facility] [employer] [address] [place] [address] Academic Success Coordinator: Campos Escobedo MD GFR,non Amer >60 Normal >60 [facility] Comment on above: Performed By: #### C DP, TROPI, BMP, CRP, SED #### [address] [address] Academic Success Coordinator: Campos Escobedo MD Glucose [Mass/Vol] 173 mg/dL High 70-99 [facility] Comment on above: Performed By: #### C DP, TROPI, BMP, CRP, SED #### [address] [address] Academic Success Coordinator: Campos Escobedo MD Potassium [Moles/Vol] 4.5 mmol/L Normal 3.7-5.3 [facility] Comment on above: Performed By: #### C DP, TROPI, BMP, CRP, SED #### [address] [address] Academic Success Coordinator: Campos Escobedo MD Sodium [Moles/Vol] 137 mmol/L Normal 135-144 [facility] Comment on above: Performed By: #### C DP, TROPI, BMP, CRP, SED #### [address] [address] Academic Success Coordinator: Campos Escobedo MD Urea nitrogen [Mass/Vol] 10 mg/dL Normal 8-23 [facility] Comment on above: Performed By: #### C DP, TROPI, BMP, CRP, SED #### [address] [address] Academic Success Coordinator: Campos Escobedo MD BUN/CRE Ratio NOT REPORTED Normal 9-20 [facility] Comment on above: Performed By: #### C DP, TROPI, BMP, CRP, SED #### [address] [address] Academic Success Coordinator: Campos Escobedo MD Staging: NOT REPORTED Normal [facility] Comment on above: Performed By: #### C DP, TROPI, BMP, CRP, SED #### [address] [address] Academic Success Coordinator: Campos Escobedo MD CBC with Diffon 08-24-2019 Abs. Basophil 0.10 k/uL Normal 0.00-0.20 [facility] Comment on above: Performed By: #### C DP, TROPI, BMP, CRP, SED #### [place] [address] Academic Success Coordinator: Campos Escobedo MD Abs.Imm.Granulocyte 0.12 k/uL Normal 0.00-0.30 [facility] Comment on above: Performed By: #### C DP, TROPI, BMP, CRP, SED #### [place] [address] Academic Success Coordinator: Campos Escobedo MD Abs.Neutrophil (Seg) 4.17 k/uL Normal 1.50-8.10 [facility] Comment on above: Performed By: #### C DP, TROPI, BMP, CRP, SED #### [place] [address] Academic Success Coordinator: Campos Escobedo MD Basophils/100 WBC (Bld) 1 % Normal 0-2 [facility] Comment on above: Performed By: #### C DP, TROPI, BMP, CRP, SED #### [place] [address] Academic Success Coordinator: Campos Escobedo MD Eosinophils (Bld) [#/Vol] 0.29 10*3/uL Normal 0.00-0.44 [facility] Comment on above: Performed By: #### C DP, TROPI, BMP, CRP, SED #### [address] [address] Academic Success Coordinator: Campos Escobedo MD Eosinophils/100 WBC (Bld) 4 % Normal 1-4 [facility] Comment on above: Performed By: #### C DP, TROPI, BMP, CRP, SED #### [address] [address] Academic Success Coordinator: Campos Escobedo MD Erythrocyte distribution width (RBC) [Ratio] 12.8 % Normal 11.8-14.4 [facility] Comment on above: Performed By: #### C DP, TROPI, BMP, CRP, SED #### [place] [address] Academic Success Coordinator: Campos Escobedo MD Hematocrit (Bld) [Volume fraction] 39.2 % Normal 36.3-47.1 [facility] Comment on above: Performed By: #### C DP, TROPI, BMP, CRP, SED #### [place] [address] Academic Success Coordinator: Campos Escobedo MD Hemoglobin (Bld) [Mass/Vol] 11.9 g/dL Normal 11.9-15.1 [facility] Comment on above: Performed By: #### C DP, TROPI, BMP, CRP, SED #### [place] [address] Academic Success Coordinator: Campos Escobedo MD Immature granulocytes (Bld) [#/Vol] 2 % High 0 [facility] Comment on above: Performed By: #### C DP, TROPI, BMP, CRP, SED #### [place] [address] Academic Success Coordinator: Campos Escobedo MD Lymphocytes (Bld) [#/Vol] 2.68 10*3/uL Normal 1.10-3.70 [facility] Comment on above: Performed By: #### C DP, TROPI, BMP, CRP, SED #### [place] [address] Academic Success Coordinator: Campos Escobedo MD Lymphocytes/100 WBC (Bld) 34 % Normal 24-43 [facility] Comment on above: Performed By: #### C DP, TROPI, BMP, CRP, SED #### [address] [address] Academic Success Coordinator: Campos Escobedo MD MCH (RBC) [Entitic mass] 29.8 pg Normal 25.2-33.5 [facility] Comment on above: Performed By: #### C DP, TROPI, BMP, CRP, SED #### [address] [address] Academic Success Coordinator: Campos Escobedo MD MCHC (RBC) [Mass/Vol] 30.4 g/dL Normal 28.4-34.8 [facility] Comment on above: Performed By: #### C DP, TROPI, BMP, CRP, SED #### [place] [address] Academic Success Coordinator: Campos Escobedo MD MCV (RBC) [Entitic vol] 98.0 fL Normal 82.6-102.9 [facility] Comment on above: Performed By: #### C DP, TROPI, BMP, CRP, SED #### [address] [address] Academic Success Coordinator: Campos Escobedo MD Monocytes (Bld) [#/Vol] 0.54 10*3/uL Normal 0.10-1.20 [facility] Comment on above: Performed By: #### C DP, TROPI, BMP, CRP, SED #### [address] [address] Academic Success Coordinator: Campos Escobedo MD Monocytes/100 WBC (Bld) 7 % Normal 3-12 [facility] Comment on above: Performed By: #### C DP, TROPI, BMP, CRP, SED #### [address] [address] Academic Success Coordinator: Campos Escobedo MD Neutrophil (Seg) 52 % Normal 36-65 [facility] Comment on above: Performed By: #### C DP, TROPI, BMP, CRP, SED #### [address] [address] Academic Success Coordinator: Campos Escobedo MD NRBC Automated 0.0 per 100 WBC Normal 0.0 [facility] Comment on above: Performed By: #### C DP, TROPI, BMP, CRP, SED #### [address] [address] Academic Success Coordinator: Campos Escobedo MD Platelet mean volume (Bld) [Entitic vol] 9.0 fL Normal 8.1-13.5 [facility] Comment on above: Performed By: #### C DP, TROPI, BMP, CRP, SED #### [address] [address] Academic Success Coordinator: Campos Escobedo MD Platelets (Bld) [#/Vol] 664 10*3/uL High 138-453 [facility] Comment on above: Performed By: #### C DP, TROPI, BMP, CRP, SED #### [address] [address] Academic Success Coordinator: Campos Escobedo MD RBC (Bld) [#/Vol] 4.00 10*6/uL Normal 3.95-5.11 [facility] Comment on above: Performed By: #### C DP, TROPI, BMP, CRP, SED #### [address] [address] Academic Success Coordinator: Campos Escobedo MD WBC (Bld) [#/Vol] 7.9 10*3/uL Normal 3.5-11.3 [facility] Comment on above: Performed By: #### C DP, TROPI, BMP, CRP, SED #### [address] [address] Academic Success Coordinator: Campos Escobedo MD Auto Diff Performed NOT REPORTED Normal [facility] Comment on above: Performed By: #### C DP, TROPI, BMP, CRP, SED #### [facility] [address] [place] [address] Academic Success Coordinator: Campos Escobedo MD Platelets (Bld) [#/Vol] NOT REPORTED Normal [facility] Comment on above: Performed By: #### C DP, TROPI, BMP, CRP, SED #### [address] [address] Academic Success Coordinator: Campos Escobedo MD RBC morphology finding Nom (Bld) NOT REPORTED Normal [facility] Comment on above: Performed By: #### C DP, TROPI, BMP, CRP, SED #### [address] [address] Academic Success Coordinator: Campos Escobedo MD WBC Morphology NOT REPORTED Normal [facility] Comment on above: Performed By: #### C DP, TROPI, BMP, CRP, SED #### [address] [address] Academic Success Coordinator: Campos Escobedo MD Calcium, Ionicon 08-24-2019 Calcium [Mass/Vol] 1.15 mmol/L Normal 1.13-1.33 [facility] Comment on above: Performed By: #### C DP, TROPI, BMP, CRP, SED #### [address] [address] Academic Success Coordinator: MD Dontae Moran 08-24-2019 Dontae garcia B1 1:80 Normal <1:10 [facility] Comment on above: Performed By: #### C DP, TROPI, BMP, CRP, SED #### [address] [address] Academic Success Coordinator: MD Dontae Moran. B2 1:160 Normal <1:10 [facility] Comment on above: Performed By: #### C DP, TROPI, BMP, CRP, SED #### [address] [address] Academic Success Coordinator: MD Dontae Moran. B3 1:320 Normal <1:10 [facility] Comment on above: Performed By: #### C DP, TROPI, BMP, CRP, SED #### [address] [address] Academic Success Coordinator: MD Dontae Moran. B4 1:320 Normal <1:10 [facility] Comment on above: Performed By: #### C DP, TROPI, BMP, CRP, SED #### [address] [address] Academic Success Coordinator: MD Dontae Moran. B5 1:20 Normal <1:10 [facility] Comment on above: Performed By: #### C DP, TROPI, BMP, CRP, SED #### [address] [address] Academic Success Coordinator: MD Dontae Moran. B6 <1:10 Normal <1:10 [facility] Comment on above: Result Comment: (NOT E) INTERPRETIVE INFORMATION: Coxsackie B Virus Single positive antibody titers of greater than or equal to 1:80 may indicate past or current infection. Sero- conversion or an increase in titers between acute and convalescent sera of at least fourfold is considered strong evidence of current or recent infection. Performed by [facility], [address] [place] [id number] [facility], Clive Dowell MD, Lab. Director Performed By: #### C DP, TROPI, BMP, CRP, SED #### [facility] [address] [place] [address] [phone] Academic Success Coordinator: Campos Escobedo MD Magnesiumon 08-24-2019 Magnesium [Mass/Vol] 2.0 mg/dL Normal 1.6-2.6 [facility] Comment on above: Performed By: #### C DP, TROPI, BMP, CRP, SED #### [address] [phone] Academic Success Coordinator: Campos Escobedo MD PTon 08-24-2019 INR Coag (PPP) [Relative time] 0.9 {INR} Normal [facility] Comment on above: Result Comment: Therapeutic Range: Moderate Anticoagulant Intensity: INR = 2.0-3.0 High Anticoagulant Intensity: INR = 2.5-3.5 Performed By: #### C DP, TROPI, BMP, CRP, SED #### [facility] [employer] [address] [place] [address] [phone] Academic Success Coordinator: Campos Escobedo MD PT Coag (PPP) [Time] 9.9 s Normal 9.0-12.0 [facility] Comment on above: Performed By: #### C DP, TROPI, BMP, CRP, SED #### [facility] [employer] [address] [place] [address] [phone] Academic Success Coordinator: Campos Escobedo MD Phosphorus, Inorg.on 019 Phosphorus, Inorg. 3.3 mg/dL Normal 2.6-4.5 [facility] Comment on above: Performed By: #### C DP, TROPI, BMP, CRP, SED #### [facility] [employer] [address] [place] [address] [phone] Academic Success Coordinator: Campos Escobedo MD XR CHEST PORTABLEon 08-24-20 [...] Vladimir Acevedo MD 08/24/19 Final result Normal [facility] APTTon 08-23-2019 aPTT Coag (Bld) [Time] 23.2 s Normal 20.5-30.5 [facility] Comment on above: Performed By: #### C DP, IOCAL, PT, PTT, BMP, MG, MAIKEL, TSHX #### [place] [address] Academic Success Coordinator: Campos Escobedo MD Basic Metabolic Profon 08-23 (cont.) [facility] Comment on above: Result Comment: Aver age GFR for 60-69 years old: 85 mL/min/1.73sq m Chronic Kidney Disease: <60 mL/min/1.73sq m Kidney failure: <15 mL/min/1.73sq m eGFR calculated using average adult body mass. Additional eGFR calculator available at: http://www.[employer]/multiple_crcl_2012.htm Performed By: #### C DP, TROPI, BMP, CRP, SED #### [place] [id number] Academic Success Coordinator: Campos Escobedo MD Anion gap [Moles/Vol] 14 mmol/L Normal 9-17 [facility] Comment on above: Performed By: #### C DP, TROPI, BMP, CRP, SED #### [address] [phone] Academic Success Coordinator: Campos Escobedo MD Calcium [Mass/Vol] 8.7 mg/dL Normal 8.6-10.4 [facility] Comment on above: Performed By: #### C DP, TROPI, BMP, CRP, SED #### [address] [address] Academic Success Coordinator: Campos Escobedo MD Chloride [Moles/Vol] 99 mmol/L Normal 98-107 [facility] Comment on above: Performed By: #### C DP, TROPI, BMP, CRP, SED #### [address] [address] Academic Success Coordinator: Campos Escobedo MD CO2 [Moles/Vol] 22 mmol/L Normal 20-31 [facility] Comment on above: Performed By: #### C DP, TROPI, BMP, CRP, SED #### [address] [address] Academic Success Coordinator: Campos Escobedo MD Creatinine [Mass/Vol] 0.55 mg/dL Normal 0.50-0.90 [facility] Comment on above: Performed By: #### C DP, TROPI, BMP, CRP, SED #### [address] [address] Academic Success Coordinator: Campos Escobedo MD GFR, Amer >60 Normal >60 [facility] Comment on above: Performed By: #### C DP, TROPI, BMP, CRP, SED #### [address] [address] Academic Success Coordinator: Campos Escobedo MD GFR,non Amer >60 Normal >60 [facility] Comment on above: Performed By: #### C DP, TROPI, BMP, CRP, SED #### [address] [address] Academic Success Coordinator: Campos Escobedo MD Glucose [Mass/Vol] 141 mg/dL High 70-99 [facility] Comment on above: Performed By: #### C DP, TROPI, BMP, CRP, SED #### [address] [address] Academic Success Coordinator: Campos Escobedo MD Potassium [Moles/Vol] 3.9 mmol/L Normal 3.7-5.3 [facility] Comment on above: Performed By: #### C DP, TROPI, BMP, CRP, SED #### [address] [address] Academic Success Coordinator: Campos Escobedo MD Sodium [Moles/Vol] 135 mmol/L Normal 135-144 [facility] Comment on above: Performed By: #### C DP, TROPI, BMP, CRP, SED #### [address] [address] Academic Success Coordinator: Campos Escobedo MD Urea nitrogen [Mass/Vol] 18 mg/dL Normal 8-23 [facility] Comment on above: Performed By: #### C DP, TROPI, BMP, CRP, SED #### [address] [address] Academic Success Coordinator: Campos Escobedo MD BUN/CRE Ratio NOT REPORTED Normal 9- [facility] Comment on above: Performed By: #### C DP, TROPI, BMP, CRP, SED #### [address] [address] Academic Success Coordinator: Campos Escobedo MD Staging: NOT REPORTED Normal [facility] Comment on above: Performed By: #### C DP, TROPI, BMP, CRP, SED #### [facility] [employer] [address] [place] [address] Academic Success Coordinator: Campos Escobedo MD C-Reactive Proteinon 019 CRP [Mass/Vol] 31.5 mg/L High 0.0-5.0 [facility] Comment on above: Performed By: #### C DP, TROPI, BMP, CRP, SED #### [address] [address] Academic Success Coordinator: Campos Escobedo MD CBC with Diffon 08-23-2019 Abs. Basophil 0.07 k/uL Normal 0.00-0.20 [facility] Comment on above: Performed By: #### C DP, IOCAL, PT, PTT, BMP, MG, MAIKEL, TSHX #### [place] [address] Academic Success Coordinator: Campos Escobedo MD Abs.Imm.Granulocyte 0.10 k/uL Normal 0.00-0.30 [facility] Comment on above: Performed By: #### C DP, IOCAL, PT, PTT, BMP, MG, MAIKEL, TSHX #### [place] [address] Academic Success Coordinator: Campos Escobedo MD Abs.Neutrophil (Seg) 7.10 k/uL Normal 1.50-8.10 [facility] Comment on above: Performed By: #### C DP, IOCAL, PT, PTT, BMP, MG, MAIKEL, TSHX #### [place] [address] Academic Success Coordinator: Campos Escobedo MD Basophils/100 WBC (Bld) 1 % Normal 0-2 [facility] Comment on above: Performed By: #### C DP, IOCAL, PT, PTT, BMP, MG, MAIKEL, TSHX #### [place] [address] Academic Success Coordinator: Campos Escobedo MD Eosinophils (Bld) [#/Vol] 0.41 10*3/uL Normal 0.00-0.44 [facility] Comment on above: Performed By: #### C DP, IOCAL, PT, PTT, BMP, MG, MAIKEL, TSHX #### [place] [address] Academic Success Coordinator: Campos Escobedo MD Eosinophils/100 WBC (Bld) 4 % Normal 1-4 [facility] Comment on above: Performed By: #### C DP, IOCAL, PT, PTT, BMP, MG, MAIKEL, TSHX #### [place] [id number] Academic Success Coordinator: Campos Escobedo MD Erythrocyte distribution width (RBC) [Ratio] 13.0 % Normal 11.8-14.4 [facility] Comment on above: Performed By: #### C DP, IOCAL, PT, PTT, BMP, MG, MAIKEL, TSHX #### [place] [address] Academic Success Coordinator: Campos Escobedo MD Hematocrit (Bld) [Volume fraction] 36.6 % Normal 36.3-47.1 [facility] Comment on above: Performed By: #### C DP, IOCAL, PT, PTT, BMP, MG, MAIKEL, TSHX #### [place] [address] Academic Success Coordinator: Campos Escobedo MD Hemoglobin (Bld) [Mass/Vol] 11.3 g/dL Low 11.9-15.1 [facility] Comment on above: Performed By: #### C DP, IOCAL, PT, PTT, BMP, MG, MAIKEL, TSHX #### [place] [id number] Academic Success Coordinator: Campos Escobedo MD Immature granulocytes (Bld) [#/Vol] 1 % High 0 [facility] Comment on above: Performed By: #### C DP, IOCAL, PT, PTT, BMP, MG, MAIKEL, TSHX #### [place] [address] Academic Success Coordinator: Campos Escobedo MD Lymphocytes (Bld) [#/Vol] 2.58 10*3/uL Normal 1.10-3.70 [facility] Comment on above: Performed By: #### C DP, IOCAL, PT, PTT, BMP, MG, MAIKEL, TSHX #### [address] [address] Academic Success Coordinator: Campos Escobedo MD Lymphocytes/100 WBC (Bld) 24 % Normal 24-43 [facility] Comment on above: Performed By: #### C DP, IOCAL, PT, PTT, BMP, MG, MAIKEL, TSHX #### [address] [address] Academic Success Coordinator: Campos Escobedo MD MCH (RBC) [Entitic mass] 30.1 pg Normal 25.2-33.5 [facility] Comment on above: Performed By: #### C DP, IOCAL, PT, PTT, BMP, MG, MAIKEL, TSHX #### [place] [address] Academic Success Coordinator: Campos Escobedo MD MCHC (RBC) [Mass/Vol] 30.9 g/dL Normal 28.4-34.8 [facility] Comment on above: Performed By: #### C DP, IOCAL, PT, PTT, BMP, MG, MAIKEL, TSHX #### [place] [address] Academic Success Coordinator: Campos Escobedo MD MCV (RBC) [Entitic vol] 97.3 fL Normal 82.6-102.9 [facility] Comment on above: Performed By: #### C DP, IOCAL, PT, PTT, BMP, MG, MAIKEL, TSHX #### [place] [address] Academic Success Coordinator: Campos Escobedo MD Monocytes (Bld) [#/Vol] 0.47 10*3/uL Normal 0.10-1.20 [facility] Comment on above: Performed By: #### C DP, IOCAL, PT, PTT, BMP, MG, MAIKEL, TSHX #### [address] [address] Academic Success Coordinator: Campos Escobedo MD Monocytes/100 WBC (Bld) 4 % Normal 3-12 [facility] Comment on above: Performed By: #### C DP, IOCAL, PT, PTT, BMP, MG, MAIKEL, TSHX #### [address] [address] Academic Success Coordinator: Campos Escobedo MD Neutrophil (Seg) 66 % High 36-65 [facility] Comment on above: Performed By: #### C DP, IOCAL, PT, PTT, BMP, MG, MAIKEL, TSHX #### [address] [address] Academic Success Coordinator: Campos Escobedo MD NRBC Automated 0.0 per 100 WBC Normal 0.0 [facility] Comment on above: Performed By: #### C DP, IOCAL, PT, PTT, BMP, MG, MAIKEL, TSHX #### [address] [address] Academic Success Coordinator: Campos Escobedo MD Platelet mean volume (Bld) [Entitic vol] 8.9 fL Normal 8.1-13.5 [facility] Comment on above: Performed By: #### C DP, IOCAL, PT, PTT, BMP, MG, MAIKEL, TSHX #### [address] [address] Academic Success Coordinator: Capmos Escobedo MD Platelets (Bld) [#/Vol] 638 10*3/uL High 138-453 [facility] Comment on above: Performed By: #### C DP, IOCAL, PT, PTT, BMP, MG, MAIKEL, TSHX #### [address] [address] Academic Success Coordinator: Campos Escobedo MD RBC (Bld) [#/Vol] 3.76 10*6/uL Low 3.95-5.11 [facility] Comment on above: Performed By: #### C DP, IOCAL, PT, PTT, BMP, MG, MAIKEL, TSHX #### [address] [address] Academic Success Coordinator: Campos Escobedo MD WBC (Bld) [#/Vol] 10.7 10*3/uL Normal 3.5-11.3 [facility] Comment on above: Performed By: #### C DP, IOCAL, PT, PTT, BMP, MG, MAIKEL, TSHX #### [address] [address] Academic Success Coordinator: Campos Escobedo MD Auto Diff Performed NOT REPORTED Normal [facility] Comment on above: Performed By: #### C DP, IOCAL, PT, PTT, BMP, MG, MAIKEL, TSHX #### [address] [address] Academic Success Coordinator: Campos Escobedo MD Platelets (Bld) [#/Vol] NOT REPORTED Normal [facility] Comment on above: Performed By: #### C DP, IOCAL, PT, PTT, BMP, MG, MAIKEL, TSHX #### [address] [address] Academic Success Coordinator: Campos Escobedo MD RBC morphology finding Nom (Bld) NOT REPORTED Normal [facility] Comment on above: Performed By: #### C DP, IOCAL, PT, PTT, BMP, MG, MAIKEL, TSHX #### [address] [address] Academic Success Coordinator: Campos Escobedo MD WBC Morphology NOT REPORTED Normal [facility] Comment on above: Performed By: #### C DP, IOCAL, PT, PTT, BMP, MG, MAIKEL, TSHX #### [address] [address] Academic Success Coordinator: Campos Escobedo MD Calcium, Ionicon 08-23-2019 Calcium [Mass/Vol] 1.22 mmol/L Normal 1.13-1.33 [facility] Comment on above: Performed By: #### C DP, IOCAL, PT, PTT, BMP, MG, MAIKEL, TSHX #### [address] [address] Academic Success Coordinator: Campos Escobedo MD Cult,Funguson 08-23-2019 Cult,Fungus Specimen Description .BODY FLUID Special Requests NOT REPORTED Culture DUPLICATE ORDER Report Status FINAL 08/23/2019 [facility] Comment on above: Performed By: #### C DP, TROPI, BMP, CRP, SED #### [address] [address] Academic Success Coordinator: Campos Escobedo MD Cult,Mycobacteriaon 08-23-20 19 Cult,Mycobacteria Specimen Description .BODY FLUID Special Requests NOT REPORTED Direct Exam NOT REPORTED Culture DUPLICATE ORDER Report Status FINAL 08/23/2019 [facility] Comment on above: Performed By: #### C DP, TROPI, BMP, CRP, SED #### [address] [address] Academic Success Coordinator: Campos Escobedo MD Fluid Cell Count and Diffon 08-23-2019 Lymphocytes/100 WBC (Bld) 49 % Normal [facility] Comment on above: Result Comment: The reference range and other method performance specifications have not been established for this body fluid. The test result must be integrated into the clinical context for interpretation. Performed By: #### C DP, TROPI, BMP, CRP, SED #### [address] [address] Academic Success Coordinator: Campos Escobedo MD Neutrophils/100 WBC (Bld) 4 % Normal [facility] Comment on above: Result Comment: The reference range and other method performance specifications have not been established for this body fluid. The test result must be integrated into the clinical context for interpretation. Performed By: #### C DP, TROPI, BMP, CRP, SED #### [address] [address] Academic Success Coordinator: Campos Escobedo MD RBC (Bld) [#/Vol] 87165 /mm3 Normal [facility] Comment on above: Result Comment: The reference range and other method performance specifications have not been established for this body fluid. The test result must be integrated into the clinical context for interpretation. Performed By: #### C DP, TROPI, BMP, CRP, SED #### [address] [address] Academic Success Coordinator: Campos Escobedo MD WBC (Bld) [#/Vol] 5151 /mm3 Normal [facility] Comment on above: Result Comment: The reference range and other method performance specifications have not been established for this body fluid. The test result must be integrated into the clinical context for interpretation. Performed By: #### C DP, TROPI, BMP, CRP, SED #### [address] [address] Academic Success Coordinator: Campos Escobedo MD Appearance (U) NOT REPORTED Normal [facility] Comment on above: Performed By: #### C DP, TROPI, BMP, CRP, SED #### [address] [address] Academic Success Coordinator: Campos Escobedo MD Basophils/100 WBC (Bld) NOT REPORTED Normal 0 [facility] Comment on above: Performed By: #### C DP, TROPI, BMP, CRP, SED #### [facility] [employer] [address] [place] [phone] Academic Success Coordinator: Campos Escobedo MD Color (U) NOT REPORTED Normal [facility] Comment on above: Performed By: #### C DP, TROPI, BMP, CRP, SED #### [facility] [employer] [address] [place] [address] Academic Success Coordinator: Campos Escobedo MD Comment NOT REPORTED Normal [facility] Comment on above: Performed By: #### C DP, TROPI, BMP, CRP, SED #### [address] [address] Academic Success Coordinator: Campos Escobedo MD Eosinophils (Bld) [#/Vol] NOT REPORTED Normal 0 [facility] Comment on above: Performed By: #### C DP, TROPI, BMP, CRP, SED #### [address] [address] Academic Success Coordinator: Campos Escobedo MD Grimes/Macrophage NOT REPORTED Normal [facility] Comment on above: Performed By: #### C DP, TROPI, BMP, CRP, SED #### [address] [address] Academic Success Coordinator: Campos Escobedo MD Type of Specimen .THORACENTESIS FLUID Normal [facility] Comment on above: Performed By: #### C DP, TROPI, BMP, CRP, SED #### [address] [address] Academic Success Coordinator: Campos Escobedo MD Glucose,Fluidon 08-23-2019 Glucose [Mass/Vol] 160 mg/dL Normal [facility] Comment on above: Result Comment: Ther e are no normals for body fluid samples. Performed By: #### C DP, TROPI, BMP, CRP, SED #### [address] [address] Academic Success Coordinator: Campos Escobedo MD Gram Stainon 08-23-2019 Microscopic observation Gram stain Nom (Unsp spec) Specimen Description .THORACENTESIS FLUID Special Requests NOT REPORTED Direct Exam DUPLICATE ORDER Report Status FINAL 08/23/2019 Normal [facility] Comment on above: Performed By: #### C DP, TROPI, BMP, CRP, SED #### [address] [address] Academic Success Coordinator: Campos Escobedo MD Histology St Bowon 08-23 Histology [facility] (NOTE) [id number] [facility]ATOM[facility] PATHOLOG[facility] [address] [place] [phone] NONGYNECOLOGICAL CYTOPATHOLOGY CONSULTATION Patient Name: TANYA BLAKE [facility] Rec: [id number] Path Number: [id number] Collected: 08/23/2019 Received: 08/26/2019 Reported: 08/28/2019 08:37 [...] reviewed in intradepartmental pathology consultation with consensus (JET, LHM, SLS, JOSUE). Normal [facility] Comment on above: Performed By: #### C DP, TROPI, BMP, CRP, SED #### [employer] [address] [place] [address] [phone] Academic Success Coordinator: Campos Escobedo MD Lactate Dehydrog, Flon 08-23 LD - Fluid 316 U/L Normal [facility] Comment on above: Result Comment: Ther e are no normals for body fluid samples. Performed By: #### C DP, TROPI, BMP, CRP, SED #### [employer] [address] [place] [address] [phone] Academic Success Coordinator: Campos Escobedo MD Type of Specimen .THORACENTESIS FLUID Normal [facility] Comment on above: Performed By: #### C DP, TROPI, BMP, CRP, SED #### [employer] [address] [place] [address] [phone] Academic Success Coordinator: Campos Escobedo MD Lactate Dehydrogenaseon LDH [Catalytic activity/Vol] 195 U/L Normal 135-214 [facility] Comment on above: Performed By: #### C DP, TROPI, BMP, CRP, SED #### [facility] [address] [place] [address] Academic Success Coordinator: Campos Escobedo MD Liver Profileon 08-23-2019 Albumin [Mass/Vol] 3.3 g/dL Low 3.5-5.2 [facility] Comment on above: Performed By: #### C DP, TROPI, BMP, CRP, SED #### [facility] [employer] [address] [place] [phone] Academic Success Coordinator: Campos Escobedo MD Albumin/Globulin [Mass ratio] 1.0 {ratio} Normal 1.0-2.5 [facility] Comment on above: Performed By: #### C DP, TROPI, BMP, CRP, SED #### [facility] [address] [place] [address] Academic Success Coordinator: Campos Escobedo MD Alkaline Phos 94 U/L Normal 35-104 [facility] Comment on above: Performed By: #### C DP, TROPI, BMP, CRP, SED #### [facility] [address] [place] [address] Academic Success Coordinator: Campos Escobedo MD ALT [Catalytic activity/Vol] 11 U/L Normal 5-33 [facility] Comment on above: Performed By: #### C DP, TROPI, BMP, CRP, SED #### [employer] [address] [place] [phone] Academic Success Coordinator: Campos Escobedo MD AST [Catalytic activity/Vol] 8 U/L Normal <32 [facility] Comment on above: Performed By: #### C DP, TROPI, BMP, CRP, SED #### [address] [address] Academic Success Coordinator: Campos Escobedo MD Bilirubin Ql (U) 0.15 mg/dL Low 0.3-1.2 [facility] Comment on above: Performed By: #### C DP, TROPI, BMP, CRP, SED #### [address] [address] Academic Success Coordinator: Campos Escobedo MD Bilirubin, Indirect CANNOT BE CALCULATED Normal 0.00-1 .00 [facility] Comment on above: Performed By: #### C DP, TROPI, BMP, CRP, SED #### [address] [address] Academic Success Coordinator: Campos Escobedo MD Bilirubin.direct [Mass/Vol] mg/dL Normal <0.31 [facility] Comment on above: Performed By: #### C DP, TROPI, BMP, CRP, SED #### [address] [address] Academic Success Coordinator: Campos Escobedo MD Protein [Mass/Vol] 6.7 g/dL Normal 6.4-8.3 [facility] Comment on above: Performed By: #### C DP, TROPI, BMP, CRP, SED #### [address] [address] Academic Success Coordinator: Campos Escobedo MD Globulin (S) [Mass/Vol] NOT REPORTED Normal 1.5-3.8 [facility] Comment on above: Performed By: #### C DP, TROPI, BMP, CRP, SED #### [address] [address] Academic Success Coordinator: Campos Escobedo MD Magnesiumon 08-23-2019 Magnesium [Mass/Vol] 1.9 mg/dL Normal 1.6-2.6 [facility] Comment on above: Performed By: #### C DP, TROPI, BMP, CRP, SED #### [facility] [employer] [address] [place] [phone] Academic Success Coordinator: Campos Escobedo MD Non-Electrical Technician Instructor Cytologyon 9 Case No: NOT REPORTED Normal [facility] Comment on above: Performed By: #### C DP, TROPI, BMP, CRP, SED #### [facility] [employer] [address] [place] [phone] Academic Success Coordinator: Campos Escobedo MD Specimen Description .THORACENTESIS FLUID Normal [facility] Comment on above: Performed By: #### C DP, TROPI, BMP, CRP, SED #### [facility] [employer] [address] [place] [phone] Academic Success Coordinator: Campos Escobedo MD PH, Quant, Fluidon 9 pH,Quant-Fluid 7.0 Normal [facility] Comment on above: Result Comment: Ther e are no normals for body fluid samples. Performed By: #### C DP, TROPI, BMP, CRP, SED #### [address] [address] Academic Success Coordinator: Campos Escobedo MD PTon 08-23-2019 INR Coag (PPP) [Relative time] 0.9 {INR} Normal [facility] Comment on above: Result Comment: Therapeutic Range: Moderate Anticoagulant Intensity: INR = 2.0-3.0 High Anticoagulant Intensity: INR = 2.5-3.5 Performed By: #### C DP, IOCAL, PT, PTT, BMP, MG, MAIKEL, TSHX #### [facility] [employer] [address] [place] [phone] Academic Success Coordinator: Campos Escobedo MD PT Coag (PPP) [Time] 10.1 s Normal 9.0-12.0 [facility] Comment on above: Performed By: #### C DP, IOCAL, PT, PTT, BMP, MG, MAIKEL, TSHX #### [facility] [employer] [address] [place] [address] [phone] Academic Success Coordinator: Campos Escobedo MD Phosphorus, Inorg.on 019 Phosphorus, Inorg. 3.6 mg/dL Normal 2.6-4.5 [facility] Comment on above: Performed By: #### C DP, TROPI, BMP, CRP, SED #### [facility] [employer] [address] [place], [place] [phone] Academic Success Coordinator: Campos Escobedo MD Protein,Tot,Fluidon 08-23-20 19 Tot Prot. Conc. 4.0 g/dL Normal [facility] Comment on above: Result Comment: Ther e are no normals for body fluid samples. Performed By: #### C DP, TROPI, BMP, CRP, SED #### [facility] [employer] [address] [place] [address] Academic Success Coordinator: Campos Escobedo MD US THORACENTESISon 9 US THORACENTESIS PROCEDURE: ULTRASOUNDGUIDED left THORACENTESIS 08/23/2019 HISTORY: ORDERING SYSTEM PROVIDED HISTORY: Left pleural effusion for thoracentesis ultrasound guided TECHNOLOGIST PROVIDED HISTORY: Left pleural effusion for thoracentesis ultrasound guided TECHNIQUE: Informed consent was obtained after a detailed explanation of the procedure including risks, benefits, and alternatives. Magnolia protocol was performed. The left chest was prepped and draped in sterile fashion and local anesthesia was achieved with lidocaine. An 5 [place] needle sheath was advanced under ultrasound guidance into pleural effusion and thoracentesis was performed. The patient tolerated the procedure well. Estimated blood loss: Minimal FINDINGS: A total of 200 mL was removed. Ayad colored fluid IMPRESSION: Successful ultrasound guided thoracentesis. Interpreted by: Gordo Brar MD Signed by: Gordo Brar MD 08/23/19 Final result Normal [facility] XR CHEST (2 VW)on 08-23-2019 XR CHEST [...] Renard Salcedo MD 08/23/19 Final result Normal [facility] APTTon 08-22-2019 aPTT Coag (Bld) [Time] 24.7 s Normal 20.5-30.5 [facility] Comment on above: Performed By: #### C DP, IOCAL, PT, PTT, BMP, MG, MAIKEL, TSHX #### [facility] [employer] [address] [place] [address] [phone] Academic Success Coordinator: Campos Escobedo MD Basic Metab w/rfx MGon 08-22 (cont.) Normal [facility] Comment on above: Result Comment: Aver age GFR for 60-69 years old: 85 mL/min/1.73sq m Chronic Kidney Disease: <60 mL/min/1.73sq m Kidney failure: <15 mL/min/1.73sq m eGFR calculated using average adult body mass. Additional eGFR calculator available at: http://www.[employer]/multiple_crcl_2012.htm Performed By: #### C DP, IOCAL, PT, PTT, BMP, MG, MAIKEL, TSHX #### [facility] [employer] [address] [place] [phone] Academic Success Coordinator: Campos Escobedo MD Anion gap [Moles/Vol] 12 mmol/L Normal 9-17 [facility] Comment on above: Performed By: #### C DP, IOCAL, PT, PTT, BMP, MG, MAIKEL, TSHX #### [facility] [employer] [address] [place] [address] [phone] Academic Success Coordinator: Campos Escobedo MD Calcium [Mass/Vol] 8.9 mg/dL Normal 8.6-10.4 [facility] Comment on above: Performed By: #### C DP, IOCAL, PT, PTT, BMP, MG, MAIKEL, TSHX #### [address] [address] Academic Success Coordinator: Campos Escobedo MD Chloride [Moles/Vol] 101 mmol/L Normal 98-107 [facility] Comment on above: Performed By: #### C DP, IOCAL, PT, PTT, BMP, MG, MAIKEL, TSHX #### [address] [address] Academic Success Coordinator: Campos Escobedo MD CO2 [Moles/Vol] 27 mmol/L Normal 20-31 [facility] Comment on above: Performed By: #### C DP, IOCAL, PT, PTT, BMP, MG, MAIKEL, TSHX #### [address] [address] Academic Success Coordinator: Campos Escobedo MD Creatinine [Mass/Vol] 0.60 mg/dL Normal 0.50-0.90 [facility] Comment on above: Performed By: #### C DP, IOCAL, PT, PTT, BMP, MG, MAIKEL, TSHX #### [address] [address] Academic Success Coordinator: Campos Escobedo MD GFR, Amer >60 Normal >60 [facility] Comment on above: Performed By: #### C DP, IOCAL, PT, PTT, BMP, MG, MAIKEL, TSHX #### [address] [address] Academic Success Coordinator: Campos Escobedo MD GFR,non Amer >60 Normal >60 [facility] Comment on above: Performed By: #### C DP, IOCAL, PT, PTT, BMP, MG, MAIKEL, TSHX #### [address] [address] Academic Success Coordinator: Campos Escobedo MD Glucose [Mass/Vol] 204 mg/dL High 70-99 [facility] Comment on above: Performed By: #### C DP, IOCAL, PT, PTT, BMP, MG, MAIKEL, TSHX #### [address] [address] Academic Success Coordinator: Campos Escobedo MD Potassium [Moles/Vol] 4.8 mmol/L Normal 3.7-5.3 [facility] Comment on above: Performed By: #### C DP, IOCAL, PT, PTT, BMP, MG, MAIKEL, TSHX #### [address] [address] Academic Success Coordinator: Campos Escobedo MD Sodium [Moles/Vol] 140 mmol/L Normal 135-144 [facility] Comment on above: Performed By: #### C DP, IOCAL, PT, PTT, BMP, MG, MAIKEL, TSHX #### [address] [address] Academic Success Coordinator: Campos Escobedo MD Urea nitrogen [Mass/Vol] 17 mg/dL Normal 8-23 [facility] Comment on above: Performed By: #### C DP, IOCAL, PT, PTT, BMP, MG, MAIKEL, TSHX #### [address] [address] Academic Success Coordinator: Campos Escobedo MD BUN/CRE Ratio NOT REPORTED Normal 9-20 [facility] Comment on above: Performed By: #### C DP, IOCAL, PT, PTT, BMP, MG, MAIKEL, TSHX #### [address] [address] Academic Success Coordinator: Campos Escobedo MD Staging: NOT REPORTED Normal [facility] Comment on above: Performed By: #### C DP, IOCAL, PT, PTT, BMP, MG, MAIKEL, TSHX #### [address] [address] Academic Success Coordinator: Campos Escobedo MD CBC with Diffon 08-22-2019 Abs. Basophil 0.05 k/uL Normal 0.00-0.20 [facility] Comment on above: Performed By: #### C DP, IOCAL, PT, PTT, BMP, MG, MAIKEL, TSHX #### [place] [address] Academic Success Coordinator: Campos Escobedo MD Abs.Imm.Granulocyte 0.12 k/uL Normal 0.00-0.30 [facility] Comment on above: Performed By: #### C DP, IOCAL, PT, PTT, BMP, MG, MAIKEL, TSHX #### [place] [address] Academic Success Coordinator: Campos Escobedo MD Abs.Neutrophil (Seg) 11.05 k/uL High 1.50-8.10 [facility] Comment on above: Performed By: #### C DP, IOCAL, PT, PTT, BMP, MG, MAIKEL, TSHX #### [place] [address] Academic Success Coordinator: Campos Escobedo MD Basophils/100 WBC (Bld) 0 % Normal 0-2 [facility] Comment on above: Performed By: #### C DP, IOCAL, PT, PTT, BMP, MG, MAIKEL, TSHX #### [place] [address] Academic Success Coordinator: Campos Escobedo MD Eosinophils (Bld) [#/Vol] 0.20 10*3/uL Normal 0.00-0.44 [facility] Comment on above: Performed By: #### C DP, IOCAL, PT, PTT, BMP, MG, MAIKEL, TSHX #### [place] [address] Academic Success Coordinator: Campos Escobedo MD Eosinophils/100 WBC (Bld) 1 % Normal 1-4 [facility] Comment on above: Performed By: #### C DP, IOCAL, PT, PTT, BMP, MG, MAIKEL, TSHX #### [address] [address] Academic Success Coordinator: Campos Escobedo MD Erythrocyte distribution width (RBC) [Ratio] 12.7 % Normal 11.8-14.4 [facility] Comment on above: Performed By: #### C DP, IOCAL, PT, PTT, BMP, MG, MAIKEL, TSHX #### [address] [address] Academic Success Coordinator: Campos Escobedo MD Hematocrit (Bld) [Volume fraction] 34.7 % Low 36.3-47.1 [facility] Comment on above: Performed By: #### C DP, IOCAL, PT, PTT, BMP, MG, MAIKEL, TSHX #### [address] [address] Academic Success Coordinator: Campos Escobedo MD Hemoglobin (Bld) [Mass/Vol] 10.8 g/dL Low 11.9-15.1 [facility] Comment on above: Performed By: #### C DP, IOCAL, PT, PTT, BMP, MG, MAIKEL, TSHX #### [address] [address] Academic Success Coordinator: Campos Escobedo MD Immature granulocytes (Bld) [#/Vol] 1 % High 0 [facility] Comment on above: Performed By: #### C DP, IOCAL, PT, PTT, BMP, MG, MAIKEL, TSHX #### [address] [address] Academic Success Coordinator: Campos Escobedo MD Lymphocytes (Bld) [#/Vol] 1.79 10*3/uL Normal 1.10-3.70 [facility] Comment on above: Performed By: #### C DP, IOCAL, PT, PTT, BMP, MG, MAIKEL, TSHX #### [place] [address] Academic Success Coordinator: Campos Escobedo MD Lymphocytes/100 WBC (Bld) 13 % Low 24-43 [facility] Comment on above: Performed By: #### C DP, IOCAL, PT, PTT, BMP, MG, MAIKEL, TSHX #### [address] [address] Academic Success Coordinator: Campos Escobedo MD MCH (RBC) [Entitic mass] 29.9 pg Normal 25.2-33.5 [facility] Comment on above: Performed By: #### C DP, IOCAL, PT, PTT, BMP, MG, MAIKEL, TSHX #### [place] [address] Academic Success Coordinator: Campos Escobedo MD MCHC (RBC) [Mass/Vol] 31.1 g/dL Normal 28.4-34.8 [facility] Comment on above: Performed By: #### C DP, IOCAL, PT, PTT, BMP, MG, MAIKEL, TSHX #### [place] [address] Academic Success Coordinator: Campos Escobedo MD MCV (RBC) [Entitic vol] 96.1 fL Normal 82.6-102.9 [facility] Comment on above: Performed By: #### C DP, IOCAL, PT, PTT, BMP, MG, MAIKEL, TSHX #### [facility] [employer] [address] [place] [address] Academic Success Coordinator: Campos Escobedo MD Monocytes (Bld) [#/Vol] 0.71 10*3/uL Normal 0.10-1.20 [facility] Comment on above: Performed By: #### C DP, IOCAL, PT, PTT, BMP, MG, MAIKEL, TSHX #### [address] [address] Academic Success Coordinator: Campos Escobedo MD Monocytes/100 WBC (Bld) 5 % Normal 3-12 [facility] Comment on above: Performed By: #### C DP, IOCAL, PT, PTT, BMP, MG, MAIKEL, TSHX #### [address] [address] Academic Success Coordinator: Campos Escobedo MD Neutrophil (Seg) 79 % High 36-65 [facility] Comment on above: Performed By: #### C DP, IOCAL, PT, PTT, BMP, MG, MAIKEL, TSHX #### [address] [address] Academic Success Coordinator: Campos Escobedo MD NRBC Automated 0.0 per 100 WBC Normal 0.0 [facility] Comment on above: Performed By: #### C DP, IOCAL, PT, PTT, BMP, MG, MAIKEL, TSHX #### [address] [address] Academic Success Coordinator: Campos Escobedo MD Platelet mean volume (Bld) [Entitic vol] 9.1 fL Normal 8.1-13.5 [facility] Comment on above: Performed By: #### C DP, IOCAL, PT, PTT, BMP, MG, MAIKEL, TSHX #### [facility] [employer] [address] [place] [phone] Academic Success Coordinator: Campos Escobedo MD Platelets (Bld) [#/Vol] 625 10*3/uL High 138-453 [facility] Comment on above: Performed By: #### C DP, IOCAL, PT, PTT, BMP, MG, MAIKEL, TSHX #### [facility] [employer] [address] [place] [phone] Academic Success Coordinator: Campos Escobedo MD RBC (Bld) [#/Vol] 3.61 10*6/uL Low 3.95-5.11 [facility] Comment on above: Performed By: #### C DP, IOCAL, PT, PTT, BMP, MG, MAIKEL, TSHX #### [address] [address] Academic Success Coordinator: Campos Escobedo MD WBC (Bld) [#/Vol] 13.9 10*3/uL High 3.5-11.3 [facility] Comment on above: Performed By: #### C DP, IOCAL, PT, PTT, BMP, MG, MAIKEL, TSHX #### [address] [address] Academic Success Coordinator: Campos Escobedo MD Auto Diff Performed NOT REPORTED Normal [facility] Comment on above: Performed By: #### C DP, IOCAL, PT, PTT, BMP, MG, MAIKEL, TSHX #### [address] [address] Academic Success Coordinator: Campos Escobedo MD Platelets (Bld) [#/Vol] NOT REPORTED Normal [facility] Comment on above: Performed By: #### C DP, IOCAL, PT, PTT, BMP, MG, MAIKEL, TSHX #### [address] [address] Academic Success Coordinator: Campos Escobedo MD RBC morphology finding Nom (Bld) NOT REPORTED Normal [facility] Comment on above: Performed By: #### C DP, IOCAL, PT, PTT, BMP, MG, MAIKEL, TSHX #### [address] [address] Academic Success Coordinator: Campso Escobedo MD WBC Morphology NOT REPORTED Normal [facility] Comment on above: Performed By: #### C DP, IOCAL, PT, PTT, BMP, MG, MAIKEL, TSHX #### [address] [address] Academic Success Coordinator: Campos Escobedo MD Calcium, Ionicon 08-22-2019 Calcium [Mass/Vol] 1.18 mmol/L Normal 1.13-1.33 [facility] Comment on above: Performed By: #### C DP, IOCAL, PT, PTT, BMP, MG, MAIKEL, TSHX #### [facility] [employer] [address] [place] [phone] Academic Success Coordinator: Campos Escobedo MD K (Potassium)on 08-22-2019 Potassium [Moles/Vol] 4.3 mmol/L Normal 3.7-5.3 [facility] Comment on above: Performed By: #### C DP, IOCAL, PT, PTT, BMP, MG, MAIKEL, TSHX #### [facility] [employer] [address] [place] [address] [phone] Academic Success Coordinator: Campos Escobedo MD Magnesiumon 08-22-2019 Magnesium [Mass/Vol] 2.0 mg/dL Normal 1.6-2.6 [facility] Comment on above: Performed By: #### C DP, IOCAL, PT, PTT, BMP, MG, MAIKEL, TSHX #### [facility] [employer] [address] [place] [address] Academic Success Coordinator: Campos Escobedo MD Magnesium [Mass/Vol] 2.2 mg/dL Normal 1.6-2.6 [facility] Comment on above: Performed By: #### C DP, IOCAL, PT, PTT, BMP, MG, MAIKEL, TSHX #### [facility] [employer] [address] [place] [address] [phone] Academic Success Coordinator: Campos Escobedo MD PTon 08-22-2019 INR Coag (PPP) [Relative time] 0.9 {INR} Normal [facility] Comment on above: Result Comment: Therapeutic Range: Moderate Anticoagulant Intensity: INR = 2.0-3.0 High Anticoagulant Intensity: INR = 2.5-3.5 Performed By: #### C DP, IOCAL, PT, PTT, BMP, MG, MAIKEL, TSHX #### [facility] [employer] [address] [place] [address] [phone] Academic Success Coordinator: Campos Escobedo MD PT Coag (PPP) [Time] 9.6 s Normal 9.0-12.0 [facility] Comment on above: Performed By: #### C DP, IOCAL, PT, PTT, BMP, MG, MAIKEL, TSHX #### [address] [address] Academic Success Coordinator: Campos Escobedo MD Phosphorus, Inorg.on 019 Phosphorus, Inorg. 3.7 mg/dL Normal 2.6-4.5 [facility] Comment on above: Performed By: #### C DP, IOCAL, PT, PTT, BMP, MG, MAIKEL, TSHX #### [place] [phone] Academic Success Coordinator: Campos Escobedo MD APTTon 08-21-2019 aPTT Coag (Bld) [Time] 26.4 s Normal 20.5-30.5 [facility] Comment on above: Performed By: #### C DP, IOCAL, PT, PTT, BMP, MG, MAIKEL, TSHX #### [address] [address] Academic Success Coordinator: Campos Escobedo MD Basic Metabolic Profon 08-21 (cont.) [facility] Comment on above: Result Comment: Aver age GFR for 60-69 years old: 85 mL/min/1.73sq m Chronic Kidney Disease: <60 mL/min/1.73sq m Kidney failure: <15 mL/min/1.73sq m eGFR calculated using average adult body mass. Additional eGFR calculator available at: http://www.[employer].com/multiple_crcl_2012.htm Performed By: #### C DP, IOCAL, PT, PTT, BMP, MG, MAIKEL, TSHX #### [address] [address] Academic Success Coordinator: Campos Escobedo MD Anion gap [Moles/Vol] 14 mmol/L Normal 9-17 [facility] Comment on above: Performed By: #### C DP, IOCAL, PT, PTT, BMP, MG, MAIKEL, TSHX #### [address] [address] Academic Success Coordinator: Campos Escobedo MD Calcium [Mass/Vol] 8.5 mg/dL Low 8.6-10.4 [facility] Comment on above: Performed By: #### C DP, IOCAL, PT, PTT, BMP, MG, MAIKEL, TSHX #### [address] [address] Academic Success Coordinator: Campos Escobedo MD Chloride [Moles/Vol] 100 mmol/L Normal 98-107 [facility] Comment on above: Performed By: #### C DP, IOCAL, PT, PTT, BMP, MG, MAIKEL, TSHX #### [address] [address] Academic Success Coordinator: Campos Escobedo MD CO2 [Moles/Vol] 24 mmol/L Normal 20-31 [facility] Comment on above: Performed By: #### C DP, IOCAL, PT, PTT, BMP, MG, MAIKEL, TSHX #### [address] [address] Academic Success Coordinator: Campos Escobedo MD Creatinine [Mass/Vol] 0.44 mg/dL Low 0.50-0.90 [facility] Comment on above: Performed By: #### C DP, IOCAL, PT, PTT, BMP, MG, MAIKEL, TSHX #### [address] [address] Academic Success Coordinator: Campos Escobedo MD GFR, Amer >60 Normal >60 [facility] Comment on above: Performed By: #### C DP, IOCAL, PT, PTT, BMP, MG, MAIKEL, TSHX #### [address] [address] Academic Success Coordinator: Campos Escobedo MD GFR,non Amer >60 Normal >60 [facility] Comment on above: Performed By: #### C DP, IOCAL, PT, PTT, BMP, MG, MAIKEL, TSHX #### [address] [address] Academic Success Coordinator: Campos Escobedo MD Glucose [Mass/Vol] 205 mg/dL High 70-99 [facility] Comment on above: Performed By: #### C DP, IOCAL, PT, PTT, BMP, MG, MAIKEL, TSHX #### [address] [address] Academic Success Coordinator: Campos Escobedo MD Potassium [Moles/Vol] 4.0 mmol/L Normal 3.7-5.3 [facility] Comment on above: Performed By: #### C DP, IOCAL, PT, PTT, BMP, MG, MAIKEL, TSHX #### [address] [address] Academic Success Coordinator: Campos Escobedo MD Sodium [Moles/Vol] 138 mmol/L Normal 135-144 [facility] Comment on above: Performed By: #### C DP, IOCAL, PT, PTT, BMP, MG, MAIKEL, TSHX #### [address] [address] Academic Success Coordinator: Campos Escobedo MD Urea nitrogen [Mass/Vol] 12 mg/dL Normal 8- [facility] Comment on above: Performed By: #### C DP, IOCAL, PT, PTT, BMP, MG, MAIKEL, TSHX #### [address] [address] Academic Success Coordinator: Campos Escobedo MD BUN/CRE Ratio NOT REPORTED Normal - [facility] Comment on above: Performed By: #### C DP, IOCAL, PT, PTT, BMP, MG, MAIKEL, TSHX #### [place] [address] Academic Success Coordinator: Campos Escobedo MD Staging: NOT REPORTED Normal [facility] Comment on above: Performed By: #### C DP, IOCAL, PT, PTT, BMP, MG, MAIKEL, TSHX #### [place] [address] Academic Success Coordinator: Campos Escobedo MD CBC with Diffon 08-21-2019 Abs. Basophil 0.09 k/uL Normal 0.00-0.20 [facility] Comment on above: Performed By: #### C DP, IOCAL, PT, PTT, BMP, MG, MAIKEL, TSHX #### [place] [address] Academic Success Coordinator: Campos Escobedo MD Abs.Imm.Granulocyte 0.16 k/uL Normal 0.00-0.30 [facility] Comment on above: Performed By: #### C DP, IOCAL, PT, PTT, BMP, MG, MAIKEL, TSHX #### [place] [address] Academic Success Coordinator: Campos Escobedo MD Abs.Neutrophil (Seg) 5.82 k/uL Normal 1.50-8.10 [facility] Comment on above: Performed By: #### C DP, IOCAL, PT, PTT, BMP, MG, MAIKEL, TSHX #### [place] [address] Academic Success Coordinator: aCmpos Escobedo MD Basophils/100 WBC (Bld) 1 % Normal 0-2 [facility] Comment on above: Performed By: #### C DP, IOCAL, PT, PTT, BMP, MG, MAIKEL, TSHX #### [place] [address] Academic Success Coordinator: Campos Escobedo MD Eosinophils (Bld) [#/Vol] 0.56 10*3/uL High 0.00-0.44 [facility] Comment on above: Performed By: #### C DP, IOCAL, PT, PTT, BMP, MG, MAIKEL, TSHX #### [place] [address] Academic Success Coordinator: Campos Escobedo MD Eosinophils/100 WBC (Bld) 6 % High 1-4 [facility] Comment on above: Performed By: #### C DP, IOCAL, PT, PTT, BMP, MG, MAIKEL, TSHX #### [place] [address] Academic Success Coordinator: Campos Escobedo MD Erythrocyte distribution width (RBC) [Ratio] 12.5 % Normal 11.8-14.4 [facility] Comment on above: Performed By: #### C DP, IOCAL, PT, PTT, BMP, MG, MAIKEL, TSHX #### [place] [address] Academic Success Coordinator: Campos Escobedo MD Hematocrit (Bld) [Volume fraction] 35.2 % Low 36.3-47.1 [facility] Comment on above: Performed By: #### C DP, IOCAL, PT, PTT, BMP, MG, MAIKEL, TSHX #### [place] [address] Academic Success Coordinator: Campos Escobedo MD Hemoglobin (Bld) [Mass/Vol] 11.1 g/dL Low 11.9-15.1 [facility] Comment on above: Performed By: #### C DP, IOCAL, PT, PTT, BMP, MG, MAIKEL, TSHX #### [place] [address] Academic Success Coordinator: Campos Escobedo MD Immature granulocytes (Bld) [#/Vol] 2 % High 0 [facility] Comment on above: Performed By: #### C DP, IOCAL, PT, PTT, BMP, MG, MAIKEL, TSHX #### [address] [address] Academic Success Coordinator: Campos Escobedo MD Lymphocytes (Bld) [#/Vol] 1.68 10*3/uL Normal 1.10-3.70 [facility] Comment on above: Performed By: #### C DP, IOCAL, PT, PTT, BMP, MG, MAIKEL, TSHX #### [address] [address] Academic Success Coordinator: Campos Escobedo MD Lymphocytes/100 WBC (Bld) 19 % Low 24-43 [facility] Comment on above: Performed By: #### C DP, IOCAL, PT, PTT, BMP, MG, MAIKEL, TSHX #### [address] [address] Academic Success Coordinator: Campos Escobedo MD MCH (RBC) [Entitic mass] 29.8 pg Normal 25.2-33.5 [facility] Comment on above: Performed By: #### C DP, IOCAL, PT, PTT, BMP, MG, MAIKEL, TSHX #### [address] [address] Academic Success Coordinator: Campos Escobedo MD MCHC (RBC) [Mass/Vol] 31.5 g/dL Normal 28.4-34.8 [facility] Comment on above: Performed By: #### C DP, IOCAL, PT, PTT, BMP, MG, MAIKEL, TSHX #### [address] [address] Academic Success Coordinator: Campos Escobedo MD MCV (RBC) [Entitic vol] 94.4 fL Normal 82.6-102.9 [facility] Comment on above: Performed By: #### C DP, IOCAL, PT, PTT, BMP, MG, MAIKEL, TSHX #### [address] [address] Academic Success Coordinator: Campos Escobedo MD Monocytes (Bld) [#/Vol] 0.70 10*3/uL Normal 0.10-1.20 [facility] Comment on above: Performed By: #### C DP, IOCAL, PT, PTT, BMP, MG, MAIKEL, TSHX #### [address] [address] Academic Success Coordinator: Campos Escobedo MD Monocytes/100 WBC (Bld) 8 % Normal 3-12 [facility] Comment on above: Performed By: #### C DP, IOCAL, PT, PTT, BMP, MG, MAIKEL, TSHX #### [place] [address] Academic Success Coordinator: Campos Escobedo MD Neutrophil (Seg) 65 % Normal 36-65 [facility] Comment on above: Performed By: #### C DP, IOCAL, PT, PTT, BMP, MG, MAIKEL, TSHX #### [place] [address] Academic Success Coordinator: Campos Escobedo MD NRBC Automated 0.0 per 100 WBC Normal 0.0 [facility] Comment on above: Performed By: #### C DP, IOCAL, PT, PTT, BMP, MG, MAIKEL, TSHX #### [address] [address] Academic Success Coordinator: Campos Escobedo MD Platelet mean volume (Bld) [Entitic vol] 8.7 fL Normal 8.1-13.5 [facility] Comment on above: Performed By: #### C DP, IOCAL, PT, PTT, BMP, MG, MAIKEL, TSHX #### [address] [address] Academic Success Coordinator: Campos Escobedo MD Platelets (Bld) [#/Vol] 576 10*3/uL High 138-453 [facility] Comment on above: Performed By: #### C DP, IOCAL, PT, PTT, BMP, MG, MAIKEL, TSHX #### [address] [address] Academic Success Coordinator: Campos Escobedo MD RBC (Bld) [#/Vol] 3.73 10*6/uL Low 3.95-5.11 [facility] Comment on above: Performed By: #### C DP, IOCAL, PT, PTT, BMP, MG, MAIKEL, TSHX #### [address] [address] Academic Success Coordinator: Campos Escobedo MD WBC (Bld) [#/Vol] 9.0 10*3/uL Normal 3.5-11.3 [facility] Comment on above: Performed By: #### C DP, IOCAL, PT, PTT, BMP, MG, MAIKLE, TSHX #### [place] [address] Academic Success Coordinator: Campos Escobedo MD Auto Diff Performed NOT REPORTED Normal [facility] Comment on above: Performed By: #### C DP, IOCAL, PT, PTT, BMP, MG, MAIKEL, TSHX #### [address] [address] Academic Success Coordinator: Campos Escobedo MD Platelets (Bld) [#/Vol] NOT REPORTED Normal [facility] Comment on above: Performed By: #### C DP, IOCAL, PT, PTT, BMP, MG, MAIKEL, TSHX #### [address] [address] Academic Success Coordinator: Campos Escobedo MD RBC morphology finding Nom (Bld) NOT REPORTED Normal [facility] Comment on above: Performed By: #### C DP, IOCAL, PT, PTT, BMP, MG, MAIKEL, TSHX #### [address] [address] Academic Success Coordinator: Campos Escobedo MD WBC Morphology NOT REPORTED Normal [facility] Comment on above: Performed By: #### C DP, IOCAL, PT, PTT, BMP, MG, MAIKEL, TSHX #### [facility] [employer] [address] [place] [phone] Academic Success Coordinator: Campos Escobedo MD Calcium, Ionicon 08-21-2019 Calcium [Mass/Vol] 1.09 mmol/L Low 1.13-1.33 [facility] Comment on above: Performed By: #### C DP, IOCAL, PT, PTT, BMP, MG, MAIKEL, TSHX #### [facility] [employer] [address] [place] [phone] Academic Success Coordinator: Campos Escobedo MD Cult,Aerobe/Anaerobeon 08-21 Cult,Aerobe/Anaerobe Specimen Descriptio n .HEART Special Requests .TISSUE Direct Exam NOT REPORTED Culture DUE TO THE SPECIMEN TYPE, THE ORDER WAS CANCELED AND REORDERED. PLEASE REFER TO: TISSUE CULTURE Report Status FINAL 08/21/2019 Normal [facility] Comment on above: Performed By: #### C DP, IOCAL, PT, PTT, BMP, MG, MAIKEL, TSHX #### [address] [address] Academic Success Coordinator: Campos Escobedo MD [facility] (NOTE) [id number] [facility] CONSULTING PATHOLOGISTS [facility] ANATOMIC PATHOLOGY [address] [place] [phone] NONGYNECOLOGICAL CYTOPATHOLOGY CONSULTATION Patient Name: TANYA BLAKE [facility] Rec: [id number] Path Number: [id number] Collected: 08/21/2019 Received: 08/21/2019 Reported: 08/22/2019 12:28 -- Diagnosis -- PERICARDIAL FLUID: NEGATIVE FOR MALIGNANCY. Johnson Hurtado Electronically Signed Out rdd/08/22/2019 Clinical Information Pericardial effusion. Source of Specimen 1: PERICARDIAL FLUID Gross Description PERICARDIAL FLUID 15.0 ml. red cloudy fluid. MICROSCOPIC DESCRIPTION Microscopic examination performed. Normal [facility] Comment on above: Performed By: #### C DP, IOCAL, PT, PTT, BMP, MG, MAIKEL, TSHX #### [address] [address] Academic Success Coordinator: Campos Escobedo MD Magnesiumon 08-21-2019 Magnesium [Mass/Vol] 1.9 mg/dL Normal 1.6-2.6 [facility] Comment on above: Performed By: #### C DP, IOCAL, PT, PTT, BMP, MG, MAIKEL, TSHX #### [address] [phone] Academic Success Coordinator: Campos Escobedo MD Non-Electrical Technician Instructor Cytologyon 9 Case No: [id number] Normal [facility] Comment on above: Performed By: #### C DP, IOCAL, PT, PTT, BMP, MG, MAIKEL, TSHX #### [address] [phone] Academic Success Coordinator: Campos Escobedo MD Specimen Description PERICARDIAL FLUID Normal [facility] Comment on above: Performed By: #### C DP, IOCAL, PT, PTT, BMP, MG, MAIKEL, TSHX #### [address] [phone] Academic Success Coordinator: Campos Escobedo MD OPERATIVE REPORTon 9 OPERATIVE REPORT [address] [phone] OPERATIVE REPORT PATIENT NAME: TANYA BLAKE : 1955 MED REC NO: [id number] ROOM: 1009 ACCOUNT NO: [id number] ADMIT DATE: 08/12/2019 PROVIDER: Erick Miles MD DATE OF PROCEDURE: 08/21/2019 PRIMARY ATTENDING SURGEON: Erick Miles MD OTHER ASSISTANTS: Included Maura Mackey RN, [...] effusion after she was taken to the laborer fryer farm, and it was deemed to be not [...] assistance necessary to complete the operation. ERICK MILES MD [id number] Doc#: [id number] CC: Normal [facility] PTon 08-21-2019 INR Coag (PPP) [Relative time] 1.0 {INR} Normal [facility] Comment on above: Result Comment: Therapeutic Range: Moderate Anticoagulant Intensity: INR = 2.0-3.0 High Anticoagulant Intensity: INR = 2.5-3.5 Performed By: #### C DP, IOCAL, PT, PTT, BMP, MG, MAIKEL, TSHX #### [facility] [employer] [address] [place] [phone] Academic Success Coordinator: Campos Escobedo MD PT Coag (PPP) [Time] 10.4 s Normal 9.0-12.0 [facility] Comment on above: Performed By: #### C DP, IOCAL, PT, PTT, BMP, MG, MAIKEL, TSHX #### [employer] [address] [place] [address] Academic Success Coordinator: Campos Escobedo MD Phosphorus, Inorg.on 019 Phosphorus, Inorg. 3.3 mg/dL Normal 2.6-4.5 [facility] Comment on above: Performed By: #### C DP, IOCAL, PT, PTT, BMP, MG, MAIKEL, TSHX #### [facility] [address] [place] [phone] Academic Success Coordinator: Campos Escobedo MD Surgical Pathologyon 019 Surgical Pathology (NOTE) [id number] [facility] [employer] CONSULTING PATHOLOGISTS [facility] ANATOMIC PATHOLOGY [address] [place] [phone] SURGICAL PATHOLOGY CONSULTATION Patient Name: TANYA BLAKE [facility] Rec: [id number] Path Number: [id number] Collected: 08/21/2019 Received: 08/21/2019 Reported: 08/22/2019 13:12 [...] 0850) Microscopic Description Microscopic examination performed. Normal [facility] Comment on above: Performed By: #### C DP, IOCAL, PT, PTT, BMP, MG, MAIKEL, TSHX #### [employer] [address] [place], [place] [phone] Academic Success Coordinator: Campos Escobedo MD Type + Screenon 08-21-2019 Type + Screen Sample Expiration 08/23/2019,2359 Arm Band Number [id number] ABO/Rh(D) O POSITIVE Antibody Screen NEGATIVE Unit Number [id number] Blood Component Type Leukocyte Reduced Red Cell Unit Division 00 Status of Unit REL FROM ALLOC Transfusion Status OK TO TRANSFUSE Crossmatch Result COMPATIBLE Unit Number [id number] Blood Component Type Leukocyte Reduced Red Cell Unit Division 00 Status of Unit REL FROM ALLOC Transfusion Status OK TO TRANSFUSE Crossmatch Result COMPATIBLE Normal [facility] Comment on above: Performed By: #### C DP, IOCAL, PT, PTT, BMP, MG, MAIKEL, TSHX #### [employer] [facility] [place], [place] [phone] Academic Success Coordinator: Campos Escobedo MD XR CHEST PORTABLEon 08-21-20 [...] effusion with left retrocardiac opacity. Interpreted by: Matti Delong MD Signed by: Matti Delong MD 08/21/19 Final result Normal [facility] APTTon 08-20-2019 aPTT Coag (Bld) [Time] 25.5 s Normal 20.5-30.5 [facility] Comment on above: Performed By: #### C DP, IOCAL, PT, PTT, BMP, MG, MAIKEL, TSHX #### [address] [address] Academic Success Coordinator: Campos Escobedo MD Basic Metabolic Profon 08-20 (cont.) Normal [facility] Comment on above: Result Comment: Aver age GFR for 60-69 years old: 85 mL/min/1.73sq m Chronic Kidney Disease: <60 mL/min/1.73sq m Kidney failure: <15 mL/min/1.73sq m eGFR calculated using average adult body mass. Additional eGFR calculator available at: http://www.[employer]/multiple_crcl_2012.htm Performed By: #### C DP, IOCAL, PT, PTT, BMP, MG, MAIKEL, TSHX #### [facility] [employer] [address] [place] [phone] Academic Success Coordinator: Campos Escobedo MD Anion gap [Moles/Vol] 11 mmol/L Normal 9-17 [facility] Comment on above: Performed By: #### C DP, IOCAL, PT, PTT, BMP, MG, MAIKEL, TSHX #### [facility] [employer] [address] [place] [address] Academic Success Coordinator: Campos Escobedo MD Calcium [Mass/Vol] 8.6 mg/dL Normal 8.6-10.4 [facility] Comment on above: Performed By: #### C DP, IOCAL, PT, PTT, BMP, MG, MAIKEL, TSHX #### [address] [address] Academic Success Coordinator: Campos Escobedo MD Chloride [Moles/Vol] 100 mmol/L Normal 98-107 [facility] Comment on above: Performed By: #### C DP, IOCAL, PT, PTT, BMP, MG, MAIKEL, TSHX #### [address] [address] Academic Success Coordinator: Campos Escobedo MD CO2 [Moles/Vol] 25 mmol/L Normal 20-31 [facility] Comment on above: Performed By: #### C DP, IOCAL, PT, PTT, BMP, MG, MAIKEL, TSHX #### [address] [address] Academic Success Coordinator: Campos Escobedo MD Creatinine [Mass/Vol] 0.55 mg/dL Normal 0.50-0.90 [facility] Comment on above: Performed By: #### C DP, IOCAL, PT, PTT, BMP, MG, MAIKEL, TSHX #### [address] [address] Academic Success Coordinator: Campos Escobedo MD GFR, Amer >60 Normal >60 [facility] Comment on above: Performed By: #### C DP, IOCAL, PT, PTT, BMP, MG, MAIKEL, TSHX #### [address] [address] [employer] Success Coordinator: Campos Escobedo MD GFR,non Amer >60 Normal >60 [facility] Comment on above: Performed By: #### C DP, IOCAL, PT, PTT, BMP, MG, MAIKEL, TSHX #### [address] [address] Academic Success Coordinator: Campos Escobedo MD Glucose [Mass/Vol] 199 mg/dL High 70-99 [facility] Comment on above: Performed By: #### C DP, IOCAL, PT, PTT, BMP, MG, MAIKEL, TSHX #### [address] [address] Academic Success Coordinator: Campos Escobedo MD Potassium [Moles/Vol] 4.1 mmol/L Normal 3.7-5.3 [facility] Comment on above: Performed By: #### C DP, IOCAL, PT, PTT, BMP, MG, MAIKEL, TSHX #### [address] [address] Academic Success Coordinator: Campos Escobedo MD Sodium [Moles/Vol] 136 mmol/L Normal 135-144 [facility] Comment on above: Performed By: #### C DP, IOCAL, PT, PTT, BMP, MG, MAIKEL, TSHX #### [address] [address] Academic Success Coordinator: Campos Escobedo MD Urea nitrogen [Mass/Vol] 11 mg/dL Normal 8-23 [facility] Comment on above: Performed By: #### C DP, IOCAL, PT, PTT, BMP, MG, MAIKEL, TSHX #### [address] [address] Academic Success Coordinator: Campos Escobedo MD BUN/CRE Ratio NOT REPORTED Normal 9-20 [facility] Comment on above: Performed By: #### C DP, IOCAL, PT, PTT, BMP, MG, MAIKEL, TSHX #### [address] [address] Academic Success Coordinator: Campos Escobedo MD Staging: NOT REPORTED Normal [facility] Comment on above: Performed By: #### C DP, IOCAL, PT, PTT, BMP, MG, MAIKEL, TSHX #### [address] [address] Academic Success Coordinator: Campos Escobedo MD Blood Bank Specimenon 2018 Blood Bank Specimen NOT REPORTED Normal [facility] CBC with Diffon 08-20-2019 Abs. Basophil 0.09 k/uL Normal 0.00-0.20 [facility] Comment on above: Performed By: #### C DP, IOCAL, PT, PTT, BMP, MG, MAIKEL, TSHX #### [address] [address] Academic Success Coordinator: Campos Escobedo MD Abs.Imm.Granulocyte 0.09 k/uL Normal 0.00-0.30 [facility] Comment on above: Performed By: #### C DP, IOCAL, PT, PTT, BMP, MG, MAIKEL, TSHX #### [place] [address] Academic Success Coordinator: Campos Escobedo MD Abs.Neutrophil (Seg) 5.67 k/uL Normal 1.50-8.10 [facility] Comment on above: Performed By: #### C DP, IOCAL, PT, PTT, BMP, MG, MAIKEL, TSHX #### [place] [address] Academic Success Coordinator: Campos Escobedo MD Basophils/100 WBC (Bld) 1 % Normal 0-2 [facility] Comment on above: Performed By: #### C DP, IOCAL, PT, PTT, BMP, MG, MAIKEL, TSHX #### [place] [address] Academic Success Coordinator: Campos Escobedo MD Eosinophils (Bld) [#/Vol] 0.56 10*3/uL High 0.00-0.44 [facility] Comment on above: Performed By: #### C DP, IOCAL, PT, PTT, BMP, MG, MAIKEL, TSHX #### [address] [address] Academic Success Coordinator: Campos Escobedo MD Eosinophils/100 WBC (Bld) 6 % High 1-4 [facility] Comment on above: Performed By: #### C DP, IOCAL, PT, PTT, BMP, MG, MAIKEL, TSHX #### [place] [address] Academic Success Coordinator: Campos Escobedo MD Erythrocyte distribution width (RBC) [Ratio] 12.6 % Normal 11.8-14.4 [facility] Comment on above: Performed By: #### C DP, IOCAL, PT, PTT, BMP, MG, MAIKEL, TSHX #### [place] [address] Academic Success Coordinator: Campos Escobedo MD Hematocrit (Bld) [Volume fraction] 35.6 % Low 36.3-47.1 [facility] Comment on above: Performed By: #### C DP, IOCAL, PT, PTT, BMP, MG, MAIKEL, TSHX #### [place] [address] Academic Success Coordinator: Campos Escobedo MD Hemoglobin (Bld) [Mass/Vol] 11.3 g/dL Low 11.9-15.1 [facility] Comment on above: Performed By: #### C DP, IOCAL, PT, PTT, BMP, MG, MAIKEL, TSHX #### [place] [address] Academic Success Coordinator: Campos Escobedo MD Immature granulocytes (Bld) [#/Vol] 1 % High 0 [facility] Comment on above: Performed By: #### C DP, IOCAL, PT, PTT, BMP, MG, AMIKEL, TSHX #### [place] [address] Academic Success Coordinator: Campos Escobedo MD Lymphocytes (Bld) [#/Vol] 1.57 10*3/uL Normal 1.10-3.70 [facility] Comment on above: Performed By: #### C DP, IOCAL, PT, PTT, BMP, MG, MAIKEL, TSHX #### [address] [address] Academic Success Coordinator: Campos Escobedo MD Lymphocytes/100 WBC (Bld) 18 % Low 24-43 [facility] Comment on above: Performed By: #### C DP, IOCAL, PT, PTT, BMP, MG, MAIKEL, TSHX #### [address] [address] Academic Success Coordinator: Campos Escobedo MD MCH (RBC) [Entitic mass] 30.5 pg Normal 25.2-33.5 [facility] Comment on above: Performed By: #### C DP, IOCAL, PT, PTT, BMP, MG, MAIKEL, TSHX #### [address] [address] Academic Success Coordinator: Campos Escobedo MD MCHC (RBC) [Mass/Vol] 31.7 g/dL Normal 28.4-34.8 [facility] Comment on above: Performed By: #### C DP, IOCAL, PT, PTT, BMP, MG, MAIKEL, TSHX #### [address] [address] Academic Success Coordinator: Campos Escobedo MD MCV (RBC) [Entitic vol] 96.0 fL Normal 82.6-102.9 [facility] Comment on above: Performed By: #### C DP, IOCAL, PT, PTT, BMP, MG, MAIKEL, TSHX #### [address] [address] Academic Success Coordinator: Campos Escobedo MD Monocytes (Bld) [#/Vol] 0.73 10*3/uL Normal 0.10-1.20 [facility] Comment on above: Performed By: #### C DP, IOCAL, PT, PTT, BMP, MG, MAIKEL, TSHX #### [address] [address] Academic Success Coordinator: Campos Escobedo MD Monocytes/100 WBC (Bld) 8 % Normal 3-12 [facility] Comment on above: Performed By: #### C DP, IOCAL, PT, PTT, BMP, MG, MAIKEL, TSHX #### [address] [address] Academic Success Coordinator: Campos Escobedo MD Neutrophil (Seg) 65 % Normal 36-65 [facility] Comment on above: Performed By: #### C DP, IOCAL, PT, PTT, BMP, MG, MAIKEL, TSHX #### [place] [address] Academic Success Coordinator: Campos Escobedo MD NRBC Automated 0.0 per 100 WBC Normal 0.0 [facility] Comment on above: Performed By: #### C DP, IOCAL, PT, PTT, BMP, MG, MAIKEL, TSHX #### [place] [address] Academic Success Coordinator: Campos Escobedo MD Platelet mean volume (Bld) [Entitic vol] 8.9 fL Normal 8.1-13.5 [facility] Comment on above: Performed By: #### C DP, IOCAL, PT, PTT, BMP, MG, MAIKEL, TSHX #### [address] [address] Academic Success Coordinator: Campos Escobedo MD Platelets (Bld) [#/Vol] 599 10*3/uL High 138-453 [facility] Comment on above: Performed By: #### C DP, IOCAL, PT, PTT, BMP, MG, MAIKEL, TSHX #### [address] [address] Academic Success Coordinator: Campos Escobedo MD RBC (Bld) [#/Vol] 3.71 10*6/uL Low 3.95-5.11 [facility] Comment on above: Performed By: #### C DP, IOCAL, PT, PTT, BMP, MG, MAIKEL, TSHX #### [address] [address] Academic Success Coordinator: Campos Escobedo MD WBC (Bld) [#/Vol] 8.7 10*3/uL Normal 3.5-11.3 [facility] Comment on above: Performed By: #### C DP, IOCAL, PT, PTT, BMP, MG, MAIKEL, TSHX #### [address] [address] Academic Success Coordinator: Campos Escobedo MD Auto Diff Performed NOT REPORTED Normal [facility] Comment on above: Performed By: #### C DP, IOCAL, PT, PTT, BMP, MG, MAIKEL, TSHX #### [address] [address] Academic Success Coordinator: Campos Escobedo MD Platelets (Bld) [#/Vol] NOT REPORTED Normal [facility] Comment on above: Performed By: #### C DP, IOCAL, PT, PTT, BMP, MG, MAIKEL, TSHX #### [address] [address] Academic Success Coordinator: Campos Escobedo MD RBC morphology finding Nom (Bld) NOT REPORTED Normal [facility] Comment on above: Performed By: #### C DP, IOCAL, PT, PTT, BMP, MG, MAIKEL, TSHX #### [address] [address] Academic Success Coordinator: Campos Escobedo MD WBC Morphology NOT REPORTED Normal [facility] Comment on above: Performed By: #### C DP, IOCAL, PT, PTT, BMP, MG, MAIKEL, TSHX #### [address] [address] Academic Success Coordinator: Campos Escobedo MD Calcium, Ionicon 08-20-2019 Calcium [Mass/Vol] 1.20 mmol/L Normal 1.13-1.33 [facility] Comment on above: Performed By: #### C DP, IOCAL, PT, PTT, BMP, MG, MAIKEL, TSHX #### [address] [address] Academic Success Coordinator: Campos Escobedo MD Magnesiumon 08-20-2019 Magnesium [Mass/Vol] 2.0 mg/dL Normal 1.6-2.6 [facility] Comment on above: Performed By: #### C DP, IOCAL, PT, PTT, BMP, MG, MAIKEL, TSHX #### [place] [address] Academic Success Coordinator: Campos Escobedo MD PTon 08-20-2019 INR Coag (PPP) [Relative time] 1.0 {INR} Normal [facility] Comment on above: Result Comment: Therapeutic Range: Moderate Anticoagulant Intensity: INR = 2.0-3.0 High Anticoagulant Intensity: INR = 2.5-3.5 Performed By: #### C DP, IOCAL, PT, PTT, BMP, MG, MAIKEL, TSHX #### [place] [address] Academic Success Coordinator: Campos Escobedo MD PT Coag (PPP) [Time] 10.3 s Normal 9.0-12.0 [facility] Comment on above: Performed By: #### C DP, IOCAL, PT, PTT, BMP, MG, MAIKEL, TSHX #### [place] [address] Academic Success Coordinator: Campos Escobedo MD Phosphorus, Inorg.on 019 Phosphorus, Inorg. 3.4 mg/dL Normal 2.6-4.5 [facility] Comment on above: Performed By: #### C DP, IOCAL, PT, PTT, BMP, MG, MAIKEL, TSHX #### [address] [phone] Academic Success Coordinator: Campos Escobedo MD APTTon 08-19-2019 aPTT Coag (Bld) [Time] 26.3 s Normal 20.5-30.5 [facility] Comment on above: Performed By: #### C DP, IOCAL, PT, PTT, BMP, MG, MAIKEL, TSHX #### [address] [id number] Academic Success Coordinator: Campos Escobedo MD Basic Metabolic Profon 08-19 (cont.) Normal [facility] Comment on above: Result Comment: Aver age GFR for 60-69 years old: 85 mL/min/1.73sq m Chronic Kidney Disease: <60 mL/min/1.73sq m Kidney failure: <15 mL/min/1.73sq m eGFR calculated using average adult body mass. Additional eGFR calculator available at: http://www.[employer]/multiple_crcl_2012.htm Performed By: #### C DP, IOCAL, PT, PTT, BMP, MG, MAIKEL, TSHX #### [address] [id number] Academic Success Coordinator: Campos Escobedo MD Anion gap [Moles/Vol] 12 mmol/L Normal 9-17 [facility] Comment on above: Performed By: #### C DP, IOCAL, PT, PTT, BMP, MG, MAIKEL, TSHX #### [address] [phone] Academic Success Coordinator: Campos Escobedo MD Calcium [Mass/Vol] 8.7 mg/dL Normal 8.6-10.4 [facility] Comment on above: Performed By: #### C DP, IOCAL, PT, PTT, BMP, MG, MAIKEL, TSHX #### [address] [id number] Academic Success Coordinator: Campos Escobedo MD Chloride [Moles/Vol] 101 mmol/L Normal 98-107 [facility] Comment on above: Performed By: #### C DP, IOCAL, PT, PTT, BMP, MG, MAIKEL, TSHX #### [address] [address] Academic Success Coordinator: Campos Escobedo MD CO2 [Moles/Vol] 24 mmol/L Normal 20-31 [facility] Comment on above: Performed By: #### C DP, IOCAL, PT, PTT, BMP, MG, MAIKEL, TSHX #### [address] [address] Academic Success Coordinator: Campos Escobedo MD Creatinine [Mass/Vol] 0.47 mg/dL Low 0.50-0.90 [facility] Comment on above: Performed By: #### C DP, IOCAL, PT, PTT, BMP, MG, MAIKEL, TSHX #### [address] [address] Academic Success Coordinator: Campos Escobedo MD GFR, Amer >60 Normal >60 [facility] Comment on above: Performed By: #### C DP, IOCAL, PT, PTT, BMP, MG, MAIKEL, TSHX #### [address] [address] Academic Success Coordinator: Campos Escobedo MD GFR,non Amer >60 Normal >60 [facility] Comment on above: Performed By: #### C DP, IOCAL, PT, PTT, BMP, MG, MAIKEL, TSHX #### [address] [address] Academic Success Coordinator: Campos Escobedo MD Glucose [Mass/Vol] 200 mg/dL High 70-99 [facility] Comment on above: Performed By: #### C DP, IOCAL, PT, PTT, BMP, MG, MAIKEL, TSHX #### [address] [address] Academic Success Coordinator: Campos Escobedo MD Potassium [Moles/Vol] 4.3 mmol/L Normal 3.7-5.3 [facility] Comment on above: Performed By: #### C DP, IOCAL, PT, PTT, BMP, MG, MAIKEL, TSHX #### [address] [address] Academic Success Coordinator: Campos Escobedo MD Sodium [Moles/Vol] 137 mmol/L Normal 135-144 [facility] Comment on above: Performed By: #### C DP, IOCAL, PT, PTT, BMP, MG, MAIKEL, TSHX #### [address] [address] Academic Success Coordinator: Campos Escobedo MD Urea nitrogen [Mass/Vol] 9 mg/dL Normal 8-23 [facility] Comment on above: Performed By: #### C DP, IOCAL, PT, PTT, BMP, MG, MAIKEL, TSHX #### [place] [address] Academic Success Coordinator: Campos Escobedo MD BUN/CRE Ratio NOT REPORTED Normal 9-20 [facility] Comment on above: Performed By: #### C DP, IOCAL, PT, PTT, BMP, MG, MAIKEL, TSHX #### [address] [address] Academic Success Coordinator: Campos Escobedo MD Staging: NOT REPORTED Normal [facility] Comment on above: Performed By: #### C DP, IOCAL, PT, PTT, BMP, MG, MAIKEL, TSHX #### [address] [address] Academic Success Coordinator: Campos Escobedo MD CBC with Diffon 08-19-2019 Abs. Basophil 0.07 k/uL Normal 0.00-0.20 [facility] Comment on above: Performed By: #### C DP, IOCAL, PT, PTT, BMP, MG, MAIKEL, TSHX #### [address] [address] Academic Success Coordinator: Campos Escobedo MD Abs.Imm.Granulocyte 0.09 k/uL Normal 0.00-0.30 [facility] Comment on above: Performed By: #### C DP, IOCAL, PT, PTT, BMP, MG, MAIKEL, TSHX #### [place] [address] Academic Success Coordinator: Campos Escobedo MD Abs.Neutrophil (Seg) 5.72 k/uL Normal 1.50-8.10 [facility] Comment on above: Performed By: #### C DP, IOCAL, PT, PTT, BMP, MG, MAIKEL, TSHX #### [place] [address] Academic Success Coordinator: Campos Escobedo MD Basophils/100 WBC (Bld) 1 % Normal 0-2 [facility] Comment on above: Performed By: #### C DP, IOCAL, PT, PTT, BMP, MG, MAIKEL, TSHX #### [place] [address] Academic Success Coordinator: Campos Escobedo MD Eosinophils (Bld) [#/Vol] 0.49 10*3/uL High 0.00-0.44 [facility] Comment on above: Performed By: #### C DP, IOCAL, PT, PTT, BMP, MG, MAIKEL, TSHX #### [place] [address] Academic Success Coordinator: Campos Escobedo MD Eosinophils/100 WBC (Bld) 6 % High 1-4 [facility] Comment on above: Performed By: #### C DP, IOCAL, PT, PTT, BMP, MG, MAIKEL, TSHX #### [address] [address] Academic Success Coordinator: Campos Escobedo MD Erythrocyte distribution width (RBC) [Ratio] 12.7 % Normal 11.8-14.4 [facility] Comment on above: Performed By: #### C DP, IOCAL, PT, PTT, BMP, MG, MAIKEL, TSHX #### [place] [address] Academic Success Coordinator: Campos Escobedo MD Hematocrit (Bld) [Volume fraction] 37.4 % Normal 36.3-47.1 [facility] Comment on above: Performed By: #### C DP, IOCAL, PT, PTT, BMP, MG, MAIKEL, TSHX #### [place] [address] Academic Success Coordinator: Campos Escobedo MD Hemoglobin (Bld) [Mass/Vol] 11.7 g/dL Low 11.9-15.1 [facility] Comment on above: Performed By: #### C DP, IOCAL, PT, PTT, BMP, MG, MAIKEL, TSHX #### [facility] [employer] [address] [place] [address] Academic Success Coordinator: Campos Escobedo MD Immature granulocytes (Bld) [#/Vol] 1 % High 0 [facility] Comment on above: Performed By: #### C DP, IOCAL, PT, PTT, BMP, MG, MAIKEL, TSHX #### [place] [address] Academic Success Coordinator: Campos Escobedo MD Lymphocytes (Bld) [#/Vol] 1.24 10*3/uL Normal 1.10-3.70 [facility] Comment on above: Performed By: #### C DP, IOCAL, PT, PTT, BMP, MG, MAIKEL, TSHX #### [facility] [employer] [address] [place] [address] Academic Success Coordinator: Campos Escobedo MD Lymphocytes/100 WBC (Bld) 15 % Low 24-43 [facility] Comment on above: Performed By: #### C DP, IOCAL, PT, PTT, BMP, MG, MAIKEL, TSHX #### [address] [address] Academic Success Coordinator: Campos Escobedo MD MCH (RBC) [Entitic mass] 30.2 pg Normal 25.2-33.5 [facility] Comment on above: Performed By: #### C DP, IOCAL, PT, PTT, BMP, MG, MAIKEL, TSHX #### [place] [address] Academic Success Coordinator: Campos Escobedo MD MCHC (RBC) [Mass/Vol] 31.3 g/dL Normal 28.4-34.8 [facility] Comment on above: Performed By: #### C DP, IOCAL, PT, PTT, BMP, MG, MAIKEL, TSHX #### [place] [address] Academic Success Coordinator: Campos Escobedo MD MCV (RBC) [Entitic vol] 96.6 fL Normal 82.6-102.9 [facility] Comment on above: Performed By: #### C DP, IOCAL, PT, PTT, BMP, MG, MAIKEL, TSHX #### [place] [address] Academic Success Coordinator: Campos Escobedo MD Monocytes (Bld) [#/Vol] 0.72 10*3/uL Normal 0.10-1.20 [facility] Comment on above: Performed By: #### C DP, IOCAL, PT, PTT, BMP, MG, MAIKEL, TSHX #### [place] [address] Academic Success Coordinator: Campos Escobedo MD Monocytes/100 WBC (Bld) 9 % Normal 3-12 [facility] Comment on above: Performed By: #### C DP, IOCAL, PT, PTT, BMP, MG, MAIKEL, TSHX #### [place] [address] Academic Success Coordinator: Campos Escobedo MD Neutrophil (Seg) 69 % High 36-65 [facility] Comment on above: Performed By: #### C DP, IOCAL, PT, PTT, BMP, MG, MAIKEL, TSHX #### [address] [address] Academic Success Coordinator: Campos Escobedo MD NRBC Automated 0.0 per 100 WBC Normal 0.0 [facility] Comment on above: Performed By: #### C DP, IOCAL, PT, PTT, BMP, MG, MAIKEL, TSHX #### [address] [address] Academic Success Coordinator: Campos Escobedo MD Platelet mean volume (Bld) [Entitic vol] 8.6 fL Normal 8.1-13.5 [facility] Comment on above: Performed By: #### C DP, IOCAL, PT, PTT, BMP, MG, MAIKEL, TSHX #### [address] [address] Academic Success Coordinator: Campos Escobedo MD Platelets (Bld) [#/Vol] 588 10*3/uL High 138-453 [facility] Comment on above: Performed By: #### C DP, IOCAL, PT, PTT, BMP, MG, MAIKEL, TSHX #### [address] [address] Academic Success Coordinator: Campos Escobedo MD RBC (Bld) [#/Vol] 3.87 10*6/uL Low 3.95-5.11 [facility] Comment on above: Performed By: #### C DP, IOCAL, PT, PTT, BMP, MG, MAIKEL, TSHX #### [address] [address] Academic Success Coordinator: Campos Escobedo MD WBC (Bld) [#/Vol] 8.3 10*3/uL Normal 3.5-11.3 [facility] Comment on above: Performed By: #### C DP, IOCAL, PT, PTT, BMP, MG, MAIKEL, TSHX #### [address] [address] Academic Success Coordinator: Campos Escobedo MD Auto Diff Performed NOT REPORTED Normal [facility] Comment on above: Performed By: #### C DP, IOCAL, PT, PTT, BMP, MG, MAIKEL, TSHX #### [address] [address] Academic Success Coordinator: Campos Escobedo MD Platelets (Bld) [#/Vol] NOT REPORTED Normal [facility] Comment on above: Performed By: #### C DP, IOCAL, PT, PTT, BMP, MG, MAIKEL, TSHX #### [address] [address] Academic Success Coordinator: Campos Escobedo MD RBC morphology finding Nom (Bld) NOT REPORTED Normal [facility] Comment on above: Performed By: #### C DP, IOCAL, PT, PTT, BMP, MG, MAIKEL, TSHX #### [address] [address] Academic Success Coordinator: Campos Escobedo MD WBC Morphology NOT REPORTED Normal [facility] Comment on above: Performed By: #### C DP, IOCAL, PT, PTT, BMP, MG, MAIKEL, TSHX #### [address] [address] Academic Success Coordinator: Campos Escobedo MD Calcium, Ionicon 08-19-2019 Calcium [Mass/Vol] 0.99 mmol/L Low 1.13-1.33 [facility] Comment on above: Performed By: #### C DP, IOCAL, PT, PTT, BMP, MG, MAIKEL, TSHX #### [address] [address] Academic Success Coordinator: Campos Escobedo MD Hemoglobin A1Con 08-19-2019 HbA1c (Bld) [Mass fraction] 7.4 % High 4.0-6.0 [facility] Comment on above: Performed By: #### C DP, IOCAL, PT, PTT, BMP, MG, MAIKEL, TSHX #### [address] [id number] Academic Success Coordinator: Campos Escobedo MD HbA1c (Bld) [Mass fraction] 166 mg/dL Normal [facility] Comment on above: Result Comment: The ADA and AACC recommend providing the estimated average glucose result to permit better patient understanding of their HBA1c result. Performed By: #### C DP, IOCAL, PT, PTT, BMP, MG, MAIKEL, TSHX #### [address] [phone] Academic Success Coordinator: Campos Escobedo MD Inf Dis Interventionon 08-19 Intervention: IV to PO Normal [facility] Comment on above: Performed By: #### C DP, IOCAL, PT, PTT, BMP, MG, MAIKEL, TSHX #### [address] [address] Academic Success Coordinator: Campos Escobedo MD Magnesiumon 08-19-2019 Magnesium [Mass/Vol] 2.2 mg/dL Normal 1.6-2.6 [facility] Comment on above: Performed By: #### C DP, IOCAL, PT, PTT, BMP, MG, MAIKEL, TSHX #### [facility] [employer] [address] [place] [id number] Academic Success Coordinator: Campos Escobedo MD PTon 08-19-2019 INR Coag (PPP) [Relative time] 0.9 {INR} Normal [facility] Comment on above: Result Comment: Therapeutic Range: Moderate Anticoagulant Intensity: INR = 2.0-3.0 High Anticoagulant Intensity: INR = 2.5-3.5 Performed By: #### C DP, IOCAL, PT, PTT, BMP, MG, MAIKEL, TSHX #### [address] [phone] Academic Success Coordinator: Campos Escobedo MD PT Coag (PPP) [Time] 10.0 s Normal 9.0-12.0 [facility] Comment on above: Performed By: #### C DP, IOCAL, PT, PTT, BMP, MG, MAIKEL, TSHX #### [address] [phone] Academic Success Coordinator: Campos Escobedo MD Phosphorus, Inorg.on 019 Phosphorus, Inorg. 3.3 mg/dL Normal 2.6-4.5 [facility] Comment on above: Performed By: #### C DP, IOCAL, PT, PTT, BMP, MG, MAIKEL, TSHX #### [address] [address] Academic Success Coordinator: Campos Escobedo MD APTTon 08-18-2019 aPTT Coag (Bld) [Time] 24.7 s Normal 20.5-30.5 [facility] Comment on above: Performed By: #### C DP, IOCAL, PT, PTT, BMP, MG, MAIKEL, TSHX #### [address] [address] Academic Success Coordinator: Campos Escobedo MD Basic Metabolic Profon 08-18 (cont.) [facility] Comment on above: Result Comment: Aver age GFR for 60-69 years old: 85 mL/min/1.73sq m Chronic Kidney Disease: <60 mL/min/1.73sq m Kidney failure: <15 mL/min/1.73sq m eGFR calculated using average adult body mass. Additional eGFR calculator available at: http://www.[employer]/multiple_crcl_2012.htm Performed By: #### C DP, IOCAL, PT, PTT, BMP, MG, MAIKEL, TSHX #### [address] [address] Academic Success Coordinator: Campos Escobedo MD Anion gap [Moles/Vol] 12 mmol/L Normal 9-17 [facility] Comment on above: Performed By: #### C DP, IOCAL, PT, PTT, BMP, MG, MAIKEL, TSHX #### [address] [address] Academic Success Coordinator: Campos Escobedo MD Calcium [Mass/Vol] 8.9 mg/dL Normal 8.6-10.4 [facility] Comment on above: Performed By: #### C DP, IOCAL, PT, PTT, BMP, MG, MAIKEL, TSHX #### [address] [address] Academic Success Coordinator: Campos Escobedo MD Chloride [Moles/Vol] 98 mmol/L Normal 98-107 [facility] Comment on above: Performed By: #### C DP, IOCAL, PT, PTT, BMP, MG, MAIKEL, TSHX #### [address] [address] Academic Success Coordinator: Campos Escobedo MD CO2 [Moles/Vol] 26 mmol/L Normal 20-31 [facility] Comment on above: Performed By: #### C DP, IOCAL, PT, PTT, BMP, MG, MAIKEL, TSHX #### [address] [address] Academic Success Coordinator: Campos Escobedo MD Creatinine [Mass/Vol] 0.51 mg/dL Normal 0.50-0.90 [facility] Comment on above: Performed By: #### C DP, IOCAL, PT, PTT, BMP, MG, MAIKEL, TSHX #### [address] [address] Academic Success Coordinator: Campos Escobedo MD GFR, Amer >60 Normal >60 [facility] Comment on above: Performed By: #### C DP, IOCAL, PT, PTT, BMP, MG, MAIKEL, TSHX #### [address] [address] Academic Success Coordinator: Campos Escobedo MD GFR,non Amer >60 Normal >60 [facility] Comment on above: Performed By: #### C DP, IOCAL, PT, PTT, BMP, MG, MAIKEL, TSHX #### [address] [address] Academic Success Coordinator: Campos Escobedo MD Glucose [Mass/Vol] 206 mg/dL High 70-99 [facility] Comment on above: Performed By: #### C DP, IOCAL, PT, PTT, BMP, MG, MAIKEL, TSHX #### [address] [address] Academic Success Coordinator: Campos Escobedo MD Potassium [Moles/Vol] 4.8 mmol/L Normal 3.7-5.3 [facility] Comment on above: Result Comment: SPEC IMEN SLIGHTLY HEMOLYZED, RESULTS MAY BE ADVERSELY AFFECTED. Performed By: #### C DP, IOCAL, PT, PTT, BMP, MG, MAIKEL, TSHX #### [address] [address] Academic Success Coordinator: Campos Escobedo MD Sodium [Moles/Vol] 136 mmol/L Normal 135-144 [facility] Comment on above: Performed By: #### C DP, IOCAL, PT, PTT, BMP, MG, MAIKEL, TSHX #### [address] [address] Academic Success Coordinator: Campos Escobedo MD Urea nitrogen [Mass/Vol] 8 mg/dL Normal 8-23 [facility] Comment on above: Performed By: #### C DP, IOCAL, PT, PTT, BMP, MG, MAIKEL, TSHX #### [address] [phone] Academic Success Coordinator: Campos Escobedo MD BUN/CRE Ratio NOT REPORTED Normal -20 [facility] Comment on above: Performed By: #### C DP, IOCAL, PT, PTT, BMP, MG, MAIKEL, TSHX #### [address] [phone] Academic Success Coordinator: Campos Escobedo MD Staging: NOT REPORTED Normal [facility] Comment on above: Performed By: #### C DP, IOCAL, PT, PTT, BMP, MG, MAIKEL, TSHX #### [address] [phone] Academic Success Coordinator: Campos Escobedo MD CBC with Diffon 08-18-2019 Abs. Basophil 0.08 k/uL Normal 0.00-0.20 [facility] Comment on above: Performed By: #### C DP, IOCAL, PT, PTT, BMP, MG, MAIKEL, TSHX #### [address] [address] Academic Success Coordinator: Campos Escobedo MD Abs.Imm.Granulocyte 0.08 k/uL Normal 0.00-0.30 [facility] Comment on above: Performed By: #### C DP, IOCAL, PT, PTT, BMP, MG, MAIKEL, TSHX #### [address] [phone] Academic Success Coordinator: Campos Escobedo MD Abs.Neutrophil (Seg) 6.32 k/uL Normal 1.50-8.10 [facility] Comment on above: Performed By: #### C DP, IOCAL, PT, PTT, BMP, MG, MAIKEL, TSHX #### [address] [address] Academic Success Coordinator: Campos Escobedo MD Basophils/100 WBC (Bld) 1 % Normal 0-2 [facility] Comment on above: Performed By: #### C DP, IOCAL, PT, PTT, BMP, MG, MAIKEL, TSHX #### [address] [address] Academic Success Coordinator: Campos Escobedo MD Eosinophils (Bld) [#/Vol] 0.43 10*3/uL Normal 0.00-0.44 [facility] Comment on above: Performed By: #### C DP, IOCAL, PT, PTT, BMP, MG, MAIKEL, TSHX #### [address] [address] Academic Success Coordinator: Campos Escobedo MD Eosinophils/100 WBC (Bld) 5 % High 1-4 [facility] Comment on above: Performed By: #### C DP, IOCAL, PT, PTT, BMP, MG, MAIKEL, TSHX #### [place] [address] Academic Success Coordinator: Campos Escobedo MD Erythrocyte distribution width (RBC) [Ratio] 12.7 % Normal 11.8-14.4 [facility] Comment on above: Performed By: #### C DP, IOCAL, PT, PTT, BMP, MG, MAIKEL, TSHX #### [address] [address] Academic Success Coordinator: Campos Escobedo MD Hematocrit (Bld) [Volume fraction] 36.6 % Normal 36.3-47.1 [facility] Comment on above: Performed By: #### C DP, IOCAL, PT, PTT, BMP, MG, MAIKEL, TSHX #### [address] [address] Academic Success Coordinator: Campos Escobedo MD Hemoglobin (Bld) [Mass/Vol] 11.7 g/dL Low 11.9-15.1 [facility] Comment on above: Performed By: #### C DP, IOCAL, PT, PTT, BMP, MG, MAIKEL, TSHX #### [address] [address] Academic Success Coordinator: Campos Escobedo MD Immature granulocytes (Bld) [#/Vol] 1 % High 0 [facility] Comment on above: Performed By: #### C DP, IOCAL, PT, PTT, BMP, MG, MAIKEL, TSHX #### [address] [address] Academic Success Coordinator: Campos Escobedo MD Lymphocytes (Bld) [#/Vol] 1.17 10*3/uL Normal 1.10-3.70 [facility] Comment on above: Performed By: #### C DP, IOCAL, PT, PTT, BMP, MG, MAIKEL, TSHX #### [address] [address] Academic Success Coordinator: Campos Escobedo MD Lymphocytes/100 WBC (Bld) 13 % Low 24-43 [facility] Comment on above: Performed By: #### C DP, IOCAL, PT, PTT, BMP, MG, MAIKEL, TSHX #### [address] [address] Academic Success Coordinator: Campos Escobedo MD MCH (RBC) [Entitic mass] 31.0 pg Normal 25.2-33.5 [facility] Comment on above: Performed By: #### C DP, IOCAL, PT, PTT, BMP, MG, MAIKEL, TSHX #### [address] [address] Academic Success Coordinator: Campos Escobedo MD MCHC (RBC) [Mass/Vol] 32.0 g/dL Normal 28.4-34.8 [facility] Comment on above: Performed By: #### C DP, IOCAL, PT, PTT, BMP, MG, MAIKEL, TSHX #### [address] [address] Academic Success Coordinator: Campos Escobedo MD MCV (RBC) [Entitic vol] 97.1 fL Normal 82.6-102.9 [facility] Comment on above: Performed By: #### C DP, IOCAL, PT, PTT, BMP, MG, MAIKEL, TSHX #### [place] [address] Academic Success Coordinator: Campos Escobedo MD Monocytes (Bld) [#/Vol] 0.71 10*3/uL Normal 0.10-1.20 [facility] Comment on above: Performed By: #### C DP, IOCAL, PT, PTT, BMP, MG, MAIKEL, TSHX #### [place] [address] Academic Success Coordinator: Campos Escobedo MD Monocytes/100 WBC (Bld) 8 % Normal 3-12 [facility] Comment on above: Performed By: #### C DP, IOCAL, PT, PTT, BMP, MG, MAIKEL, TSHX #### [place] [address] Academic Success Coordinator: Campos Escobedo MD Neutrophil (Seg) 72 % High 36-65 [facility] Comment on above: Performed By: #### C DP, IOCAL, PT, PTT, BMP, MG, MAIKEL, TSHX #### [place] [address] Academic Success Coordinator: Campos Escobedo MD NRBC Automated 0.0 per 100 WBC Normal 0.0 [facility] Comment on above: Performed By: #### C DP, IOCAL, PT, PTT, BMP, MG, MAIKEL, TSHX #### [place] [address] Academic Success Coordinator: Campos Escobedo MD Platelet mean volume (Bld) [Entitic vol] 8.8 fL Normal 8.1-13.5 [facility] Comment on above: Performed By: #### C DP, IOCAL, PT, PTT, BMP, MG, MAIKEL, TSHX #### [address] [address] Academic Success Coordinator: Campos Escobedo MD Platelets (Bld) [#/Vol] 612 10*3/uL High 138-453 [facility] Comment on above: Performed By: #### C DP, IOCAL, PT, PTT, BMP, MG, MAIKEL, TSHX #### [address] [address] Academic Success Coordinator: Campos Escobedo MD RBC (Bld) [#/Vol] 3.77 10*6/uL Low 3.95-5.11 [facility] Comment on above: Performed By: #### C DP, IOCAL, PT, PTT, BMP, MG, MAIKEL, TSHX #### [address] [address] Academic Success Coordinator: Campos Escobedo MD WBC (Bld) [#/Vol] 8.8 10*3/uL Normal 3.5-11.3 [facility] Comment on above: Performed By: #### C DP, IOCAL, PT, PTT, BMP, MG, MAIKEL, TSHX #### [place] [address] Academic Success Coordinator: Campos Escobedo MD Auto Diff Performed NOT REPORTED Normal [facility] Comment on above: Performed By: #### C DP, IOCAL, PT, PTT, BMP, MG, MAIKEL, TSHX #### [address] [address] Academic Success Coordinator: Campos Escobedo MD Platelets (Bld) [#/Vol] NOT REPORTED Normal [facility] Comment on above: Performed By: #### C DP, IOCAL, PT, PTT, BMP, MG, MAIKEL, TSHX #### [address] [address] Academic Success Coordinator: Campos Escobedo MD RBC morphology finding Nom (Bld) NOT REPORTED Normal [facility] Comment on above: Performed By: #### C DP, IOCAL, PT, PTT, BMP, MG, MAIKEL, TSHX #### [place] [address] Academic Success Coordinator: Campos Escobedo MD WBC Morphology NOT REPORTED Normal [facility] Comment on above: Performed By: #### C DP, IOCAL, PT, PTT, BMP, MG, MAIKEL, TSHX #### [place] [address] Academic Success Coordinator: Campos Escobedo MD Calcium, Ionicon 08-18-2019 Calcium [Mass/Vol] 1.14 mmol/L Normal 1.13-1.33 [facility] Comment on above: Performed By: #### C DP, TROPI, BMP, CRP, SED #### [place] [address] Academic Success Coordinator: Campos Escobedo MD Magnesiumon 08-18-2019 Magnesium [Mass/Vol] 2.1 mg/dL Normal 1.6-2.6 [facility] Comment on above: Performed By: #### C DP, IOCAL, PT, PTT, BMP, MG, MAIKEL, TSHX #### [place] [address] Academic Success Coordinator: Campos Escobeod MD PTon 08-18-2019 INR Coag (PPP) [Relative time] 1.0 {INR} Normal [facility] Comment on above: Result Comment: Therapeutic Range: Moderate Anticoagulant Intensity: INR = 2.0-3.0 High Anticoagulant Intensity: INR = 2.5-3.5 Performed By: #### C DP, IOCAL, PT, PTT, BMP, MG, MAIKEL, TSHX #### [place] [id number] Academic Success Coordinator: Campos Escobedo MD PT Coag (PPP) [Time] 10.3 s Normal 9.0-12.0 [facility] Comment on above: Performed By: #### C DP, IOCAL, PT, PTT, BMP, MG, MAIKEL, TSHX #### [address] [phone] Academic Success Coordinator: Campos Escobedo MD Phosphorus, Inorg.on 019 Phosphorus, Inorg. 3.4 mg/dL Normal 2.6-4.5 [facility] Comment on above: Performed By: #### C DP, IOCAL, PT, PTT, BMP, MG, MAIKEL, TSHX #### [address] [address] Academic Success Coordinator: Campos Escobedo MD APTTon 08-17-2019 aPTT Coag (Bld) [Time] 26.5 s Normal 20.5-30.5 [facility] Comment on above: Performed By: #### C DP, TROPI, BMP, CRP, SED #### [address] [address] Academic Success Coordinator: Campos Escobedo MD Basic Metabolic Profon 08-17 (cont.) Normal [facility] Comment on above: Result Comment: Aver age GFR for 60-69 years old: 85 mL/min/1.73sq m Chronic Kidney Disease: <60 mL/min/1.73sq m Kidney failure: <15 mL/min/1.73sq m eGFR calculated using average adult body mass. Additional eGFR calculator available at: http://www.[employer].com/multiple_crcl_2012.htm Performed By: #### C DP, TROPI, BMP, CRP, SED #### [address] [phone] Academic Success Coordinator: Campos Escobedo MD Anion gap [Moles/Vol] 11 mmol/L Normal 9-17 [facility] Comment on above: Performed By: #### C DP, TROPI, BMP, CRP, SED #### [address] [address] Academic Success Coordinator: Campos Escobedo MD Calcium [Mass/Vol] 8.6 mg/dL Normal 8.6-10.4 [facility] Comment on above: Performed By: #### C DP, TROPI, BMP, CRP, SED #### [address] [address] Academic Success Coordinator: Campos Escobedo MD Chloride [Moles/Vol] 101 mmol/L Normal 98-107 [facility] Comment on above: Performed By: #### C DP, TROPI, BMP, CRP, SED #### [address] [address] Academic Success Coordinator: Campos Escobedo MD CO2 [Moles/Vol] 27 mmol/L Normal 20-31 [facility] Comment on above: Performed By: #### C DP, TROPI, BMP, CRP, SED #### [facility] [employer] [address] [place] [address] Academic Success Coordinator: Campos Escobedo MD Creatinine [Mass/Vol] 0.57 mg/dL Normal 0.50-0.90 [facility] Comment on above: Performed By: #### C DP, TROPI, BMP, CRP, SED #### [facility] [employer] [address] [place] [address] Academic Success Coordinator: Campos Escobedo MD GFR, Amer >60 Normal >60 [facility] Comment on above: Performed By: #### C DP, TROPI, BMP, CRP, SED #### [facility] [employer] [address] [place] [address] Academic Success Coordinator: Campos Ecsobedo MD GFR,non Amer >60 Normal >60 [facility] Comment on above: Performed By: #### C DP, TROPI, BMP, CRP, SED #### [facility] [employer] [address] [place] [address] Academic Success Coordinator: Campos Escobedo MD Glucose [Mass/Vol] 178 mg/dL High 70-99 [facility] Comment on above: Performed By: #### C DP, TROPI, BMP, CRP, SED #### [address] [address] Academic Success Coordinator: Campos Escobedo MD Potassium [Moles/Vol] 4.1 mmol/L Normal 3.7-5.3 [facility] Comment on above: Performed By: #### C DP, TROPI, BMP, CRP, SED #### [address] [address] Academic Success Coordinator: Campos Escobedo MD Sodium [Moles/Vol] 139 mmol/L Normal 135-144 [facility] Comment on above: Performed By: #### C DP, TROPI, BMP, CRP, SED #### [address] [address] Academic Success Coordinator: Campos Escobedo MD Urea nitrogen [Mass/Vol] 10 mg/dL Normal 8-23 [facility] Comment on above: Performed By: #### C DP, TROPI, BMP, CRP, SED #### [address] [address] Academic Success Coordinator: Campos Escobedo MD BUN/CRE Ratio NOT REPORTED Normal 9-20 [facility] Comment on above: Performed By: #### C DP, TROPI, BMP, CRP, SED #### [address] [address] Academic Success Coordinator: Campos Escobedo MD Staging: NOT REPORTED Normal [facility] Comment on above: Performed By: #### C DP, TROPI, BMP, CRP, SED #### [address] [address] Academic Success Coordinator: Campos Escobedo MD CBC with Diffon 08-17-2019 Abs. Basophil 0.07 k/uL Normal 0.00-0.20 [facility] Comment on above: Performed By: #### C DP, TROPI, BMP, CRP, SED #### [address] [address] Academic Success Coordinator: Campos Escobedo MD Abs.Imm.Granulocyte 0.11 k/uL Normal 0.00-0.30 [facility] Comment on above: Performed By: #### C DP, TROPI, BMP, CRP, SED #### [address] [address] Academic Success Coordinator: Campos Escobedo MD Abs.Neutrophil (Seg) 6.28 k/uL Normal 1.50-8.10 [facility] Comment on above: Performed By: #### C DP, TROPI, BMP, CRP, SED #### [place] [address] Academic Success Coordinator: Campos Escobedo MD Basophils/100 WBC (Bld) 1 % Normal 0-2 [facility] Comment on above: Performed By: #### C DP, TROPI, BMP, CRP, SED #### [address] [address] Academic Success Coordinator: Campos Escobedo MD Eosinophils (Bld) [#/Vol] 0.43 10*3/uL Normal 0.00-0.44 [facility] Comment on above: Performed By: #### C DP, TROPI, BMP, CRP, SED #### [address] [address] Academic Success Coordinator: Campos Escobedo MD Eosinophils/100 WBC (Bld) 5 % High 1-4 [facility] Comment on above: Performed By: #### C DP, TROPI, BMP, CRP, SED #### [address] [address] Academic Success Coordinator: Campos Escobedo MD Erythrocyte distribution width (RBC) [Ratio] 12.7 % Normal 11.8-14.4 [facility] Comment on above: Performed By: #### C DP, TROPI, BMP, CRP, SED #### [address] [address] Academic Success Coordinator: Campos Escobedo MD Hematocrit (Bld) [Volume fraction] 33.9 % Low 36.3-47.1 [facility] Comment on above: Performed By: #### C DP, TROPI, BMP, CRP, SED #### [place] [address] Academic Success Coordinator: Campos Escobedo MD Hemoglobin (Bld) [Mass/Vol] 10.6 g/dL Low 11.9-15.1 [facility] Comment on above: Performed By: #### C DP, TROPI, BMP, CRP, SED #### [place] [address] Academic Success Coordinator: Campos Escobedo MD Immature granulocytes (Bld) [#/Vol] 1 % High 0 [facility] Comment on above: Performed By: #### C DP, TROPI, BMP, CRP, SED #### [facility] [employer] [address] [place] [address] Academic Success Coordinator: Campos Escobedo MD Lymphocytes (Bld) [#/Vol] 1.70 10*3/uL Normal 1.10-3.70 [facility] Comment on above: Performed By: #### C DP, TROPI, BMP, CRP, SED #### [address] [address] Academic Success Coordinator: Campos Escobedo MD Lymphocytes/100 WBC (Bld) 18 % Low 24-43 [facility] Comment on above: Performed By: #### C DP, TROPI, BMP, CRP, SED #### [place] [address] Academic Success Coordinator: Campos Escobedo MD MCH (RBC) [Entitic mass] 30.3 pg Normal 25.2-33.5 [facility] Comment on above: Performed By: #### C DP, TROPI, BMP, CRP, SED #### [address] [address] Academic Success Coordinator: Campos Escobedo MD MCHC (RBC) [Mass/Vol] 31.3 g/dL Normal 28.4-34.8 [facility] Comment on above: Performed By: #### C DP, TROPI, BMP, CRP, SED #### [place] [address] Academic Success Coordinator: Campos Escobedo MD MCV (RBC) [Entitic vol] 96.9 fL Normal 82.6-102.9 [facility] Comment on above: Performed By: #### C DP, TROPI, BMP, CRP, SED #### [address] [address] Academic Success Coordinator: Campos Escobedo MD Monocytes (Bld) [#/Vol] 0.98 10*3/uL Normal 0.10-1.20 [facility] Comment on above: Performed By: #### C DP, TROPI, BMP, CRP, SED #### [address] [address] Academic Success Coordinator: Campos Escobedo MD Monocytes/100 WBC (Bld) 10 % Normal 3-12 [facility] Comment on above: Performed By: #### C DP, TROPI, BMP, CRP, SED #### [address] [address] Academic Success Coordinator: Campos Escobedo MD Neutrophil (Seg) 65 % Normal 36-65 [facility] Comment on above: Performed By: #### C DP, TROPI, BMP, CRP, SED #### [address] [place] [address] Academic Success Coordinator: Campos Escobedo MD NRBC Automated 0.0 per 100 WBC Normal 0.0 [facility] Comment on above: Performed By: #### C DP, TROPI, BMP, CRP, SED #### [address] [address] Academic Success Coordinator: Campos Escobedo MD Platelet mean volume (Bld) [Entitic vol] 9.1 fL Normal 8.1-13.5 [facility] Comment on above: Performed By: #### C DP, TROPI, BMP, CRP, SED #### [address] [address] Academic Success Coordinator: Campos Escobedo MD Platelets (Bld) [#/Vol] 575 10*3/uL High 138-453 [facility] Comment on above: Performed By: #### C DP, TROPI, BMP, CRP, SED #### [address] [address] Academic Success Coordinator: Campos Escobedo MD RBC (Bld) [#/Vol] 3.50 10*6/uL Low 3.95-5.11 [facility] Comment on above: Performed By: #### C DP, TROPI, BMP, CRP, SED #### [address] [address] Academic Success Coordinator: Campos Escobedo MD WBC (Bld) [#/Vol] 9.6 10*3/uL Normal 3.5-11.3 [facility] Comment on above: Performed By: #### C DP, TROPI, BMP, CRP, SED #### [address] [address] Academic Success Coordinator: Campos Escobedo MD Auto Diff Performed NOT REPORTED Normal [facility] Comment on above: Performed By: #### C DP, TROPI, BMP, CRP, SED #### [address] [address] Academic Success Coordinator: Campos Escobedo MD Platelets (Bld) [#/Vol] NOT REPORTED Normal [facility] Comment on above: Performed By: #### C DP, TROPI, BMP, CRP, SED #### [address] [address] Academic Success Coordinator: Campos Escobedo MD RBC morphology finding Nom (Bld) NOT REPORTED Normal [facility] Comment on above: Performed By: #### C DP, TROPI, BMP, CRP, SED #### [facility] [employer] [address] [place] [phone] Academic Success Coordinator: Campos Escobedo MD WBC Morphology NOT REPORTED Normal [facility] Comment on above: Performed By: #### C DP, TROPI, BMP, CRP, SED #### [facility] [employer] [address] [place] [address] Academic Success Coordinator: Campos Escobedo MD Calcium, Ionicon 08-17-2019 Calcium [Mass/Vol] 1.14 mmol/L Normal 1.13-1.33 [facility] Comment on above: Performed By: #### C DP, TROPI, BMP, CRP, SED #### [facility] [employer] [address] [place] [address] Academic Success Coordinator: Campos Escobedo MD Magnesiumon 08-17-2019 Magnesium [Mass/Vol] 2.0 mg/dL Normal 1.6-2.6 [facility] Comment on above: Performed By: #### C DP, TROPI, BMP, CRP, SED #### [facility] [employer] [address] [place] [address] Academic Success Coordinator: Campos Escobedo MD PTon 08-17-2019 INR Coag (PPP) [Relative time] 1.0 {INR} Normal [facility] Comment on above: Result Comment: Therapeutic Range: Moderate Anticoagulant Intensity: INR = 2.0-3.0 High Anticoagulant Intensity: INR = 2.5-3.5 Performed By: #### C DP, TROPI, BMP, CRP, SED #### [facility] [address] [place] [phone] Academic Success Coordinator: Campos Escobedo MD PT Coag (PPP) [Time] 10.6 s Normal 9.0-12.0 [facility] Comment on above: Performed By: #### C DP, TROPI, BMP, CRP, SED #### [facility] [address] [place] [phone] Academic Success Coordinator: Campos Escobedo MD Phosphorus, Inorg.on 019 Phosphorus, Inorg. 3.6 mg/dL Normal 2.6-4.5 [facility] Comment on above: Performed By: #### C DP, TROPI, BMP, CRP, SED #### [facility] [address] [place] [address] [phone] Academic Success Coordinator: Campos Escobedo MD XR CHEST (2 VW)on [...] Olamide Fontanez MD 08/17/19 Final result Normal [facility] APTTon 08-16-2019 aPTT Coag (Bld) [Time] 24.5 s Normal 20.5-30.5 [facility] Comment on above: Performed By: #### C DP, TROPI, BMP, CRP, SED #### [address] [address] Academic Success Coordinator: Campos Escobedo MD Basic Metabolic Profon 08-16 (cont.) Normal [facility] Comment on above: Result Comment: Aver age GFR for 60-69 years old: 85 mL/min/1.73sq m Chronic Kidney Disease: <60 mL/min/1.73sq m Kidney failure: <15 mL/min/1.73sq m eGFR calculated using average adult body mass. Additional eGFR calculator available at: http://www.[employer]/multiple_crcl_2012.htm Performed By: #### C DP, TROPI, BMP, CRP, SED #### [address] [address] Academic Success Coordinator: Campos Escobedo MD Anion gap [Moles/Vol] 14 mmol/L Normal 9-17 [facility] Comment on above: Performed By: #### C DP, TROPI, BMP, CRP, SED #### [address] [address] Academic Success Coordinator: Campos Escobedo MD Calcium [Mass/Vol] 8.6 mg/dL Normal 8.6-10.4 [facility] Comment on above: Performed By: #### C DP, TROPI, BMP, CRP, SED #### [address] [address] Academic Success Coordinator: Campos Escobedo MD Chloride [Moles/Vol] 102 mmol/L Normal 98-107 [facility] Comment on above: Performed By: #### C DP, TROPI, BMP, CRP, SED #### [address] [address] Academic Success Coordinator: Campos Escobedo MD CO2 [Moles/Vol] 21 mmol/L Normal 20-31 [facility] Comment on above: Performed By: #### C DP, TROPI, BMP, CRP, SED #### [facility] [employer] [address] [place] [phone] Academic Success Coordinator: Campos Escobedo MD Creatinine [Mass/Vol] 0.45 mg/dL Low 0.50-0.90 [facility] Comment on above: Performed By: #### C DP, TROPI, BMP, CRP, SED #### [address] [address] Academic Success Coordinator: Campos Escobedo MD GFR, Amer >60 Normal >60 [facility] Comment on above: Performed By: #### C DP, TROPI, BMP, CRP, SED #### [facility] [employer] [address] [place] [phone] Academic Success Coordinator: Campos Escobedo MD GFR,non Amer >60 Normal >60 [facility] Comment on above: Performed By: #### C DP, TROPI, BMP, CRP, SED #### [facility] [employer] [address] [place] [address] Academic Success Coordinator: Campos Escobedo MD Glucose [Mass/Vol] 191 mg/dL High 70-99 [facility] Comment on above: Performed By: #### C DP, TROPI, BMP, CRP, SED #### [facility] [employer] [address] [place] [address] Academic Success Coordinator: Campos Escobedo MD Potassium [Moles/Vol] 3.6 mmol/L Low 3.7-5.3 [facility] Comment on above: Performed By: #### C DP, TROPI, BMP, CRP, SED #### [facility] [employer] [address] [place] [phone] Academic Success Coordinator: Campos Escobedo MD Sodium [Moles/Vol] 137 mmol/L Normal 135-144 [facility] Comment on above: Performed By: #### C DP, TROPI, BMP, CRP, SED #### [address] [address] Academic Success Coordinator: Campos Escobedo MD Urea nitrogen [Mass/Vol] 8 mg/dL Normal 8-23 [facility] Comment on above: Performed By: #### C DP, TROPI, BMP, CRP, SED #### [address] [address] Academic Success Coordinator: Campos Escobedo MD BUN/CRE Ratio NOT REPORTED Normal 9-20 [facility] Comment on above: Performed By: #### C DP, TROPI, BMP, CRP, SED #### [address] [address] Academic Success Coordinator: Campos Escobedo MD Staging: NOT REPORTED Normal [facility] Comment on above: Performed By: #### C DP, TROPI, BMP, CRP, SED #### [address] [address] Academic Success Coordinator: Campos Escobedo MD CBC with Diffon 08-16-2019 Abs. Basophil 0.08 k/uL Normal 0.00-0.20 [facility] Comment on above: Performed By: #### C DP, TROPI, BMP, CRP, SED #### [place] [address] Academic Success Coordinator: Campos Escobedo MD Abs.Imm.Granulocyte 0.09 k/uL Normal 0.00-0.30 [facility] Comment on above: Performed By: #### C DP, TROPI, BMP, CRP, SED #### [address] [address] Academic Success Coordinator: Campos Escobedo MD Abs.Neutrophil (Seg) 7.15 k/uL Normal 1.50-8.10 [facility] Comment on above: Performed By: #### C DP, TROPI, BMP, CRP, SED #### [address] [address] Academic Success Coordinator: Campos Escobedo MD Basophils/100 WBC (Bld) 1 % Normal 0-2 [facility] Comment on above: Performed By: #### C DP, TROPI, BMP, CRP, SED #### [address] [address] Academic Success Coordinator: Campos Escobedo MD Eosinophils (Bld) [#/Vol] 0.38 10*3/uL Normal 0.00-0.44 [facility] Comment on above: Performed By: #### C DP, TROPI, BMP, CRP, SED #### [place] [address] Academic Success Coordinator: Campos Escobedo MD Eosinophils/100 WBC (Bld) 4 % Normal 1-4 [facility] Comment on above: Performed By: #### C DP, TROPI, BMP, CRP, SED #### [place] [address] Academic Success Coordinator: Campos Escobedo MD Erythrocyte distribution width (RBC) [Ratio] 12.4 % Normal 11.8-14.4 [facility] Comment on above: Performed By: #### C DP, TROPI, BMP, CRP, SED #### [place] [address] Academic Success Coordinator: Campos Escobedo MD Hematocrit (Bld) [Volume fraction] 34.5 % Low 36.3-47.1 [facility] Comment on above: Performed By: #### C DP, TROPI, BMP, CRP, SED #### [facility] [employer] [address] [place] [address] Academic Success Coordinator: Campos Escobedo MD Hemoglobin (Bld) [Mass/Vol] 10.8 g/dL Low 11.9-15.1 [facility] Comment on above: Performed By: #### C DP, TROPI, BMP, CRP, SED #### [address] [address] Academic Success Coordinator: Campos Escobedo MD Immature granulocytes (Bld) [#/Vol] 1 % High 0 [facility] Comment on above: Performed By: #### C DP, TROPI, BMP, CRP, SED #### [address] [address] Academic Success Coordinator: Campos Escobedo MD Lymphocytes (Bld) [#/Vol] 1.20 10*3/uL Normal 1.10-3.70 [facility] Comment on above: Performed By: #### C DP, TROPI, BMP, CRP, SED #### [address] [address] Academic Success Coordinator: Campos Escobedo MD Lymphocytes/100 WBC (Bld) 12 % Low 24-43 [facility] Comment on above: Performed By: #### C DP, TROPI, BMP, CRP, SED #### [address] [address] Academic Success Coordinator: Campos Escobedo MD MCH (RBC) [Entitic mass] 30.4 pg Normal 25.2-33.5 [facility] Comment on above: Performed By: #### C DP, TROPI, BMP, CRP, SED #### [address] [address] Academic Success Coordinator: Campos Escobedo MD MCHC (RBC) [Mass/Vol] 31.3 g/dL Normal 28.4-34.8 [facility] Comment on above: Performed By: #### C DP, TROPI, BMP, CRP, SED #### [address] [address] Academic Success Coordinator: Campos Escobedo MD MCV (RBC) [Entitic vol] 97.2 fL Normal 82.6-102.9 [facility] Comment on above: Performed By: #### C DP, TROPI, BMP, CRP, SED #### [address] [address] Academic Success Coordinator: Campos Escobedo MD Monocytes (Bld) [#/Vol] 0.77 10*3/uL Normal 0.10-1.20 [facility] Comment on above: Performed By: #### C DP, TROPI, BMP, CRP, SED #### [address] [address] Academic Success Coordinator: Campos Escobedo MD Monocytes/100 WBC (Bld) 8 % Normal 3-12 [facility] Comment on above: Performed By: #### C DP, TROPI, BMP, CRP, SED #### [address] [address] Academic Success Coordinator: Campos Escobedo MD Neutrophil (Seg) 74 % High 36-65 [facility] Comment on above: Performed By: #### C DP, TROPI, BMP, CRP, SED #### [address] [address] Academic Success Coordinator: Campos Escobedo MD NRBC Automated 0.0 per 100 WBC Normal 0.0 [facility] Comment on above: Performed By: #### C DP, TROPI, BMP, CRP, SED #### [address] [address] Academic Success Coordinator: Campos Escobedo MD Platelet mean volume (Bld) [Entitic vol] 9.0 fL Normal 8.1-13.5 [facility] Comment on above: Performed By: #### C DP, TROPI, BMP, CRP, SED #### [address] [address] Academic Success Coordinator: Campos Escobedo MD Platelets (Bld) [#/Vol] 560 10*3/uL High 138-453 [facility] Comment on above: Performed By: #### C DP, TROPI, BMP, CRP, SED #### [address] [address] Academic Success Coordinator: Campos Escobedo MD RBC (Bld) [#/Vol] 3.55 10*6/uL Low 3.95-5.11 [facility] Comment on above: Performed By: #### C DP, TROPI, BMP, CRP, SED #### [address] [address] Academic Success Coordinator: Campos Escobedo MD WBC (Bld) [#/Vol] 9.7 10*3/uL Normal 3.5-11.3 [facility] Comment on above: Performed By: #### C DP, TROPI, BMP, CRP, SED #### [address] [address] Academic Success Coordinator: Campos Escobedo MD Auto Diff Performed NOT REPORTED Normal [facility] Comment on above: Performed By: #### C DP, TROPI, BMP, CRP, SED #### [address] [address] Academic Success Coordinator: Campos Escobedo MD Platelets (Bld) [#/Vol] NOT REPORTED Normal [facility] Comment on above: Performed By: #### C DP, TROPI, BMP, CRP, SED #### [address] [address] Academic Success Coordinator: Cmapos Escobedo MD RBC morphology finding Nom (Bld) NOT REPORTED Normal [facility] Comment on above: Performed By: #### C DP, TROPI, BMP, CRP, SED #### [address] [address] Academic Success Coordinator: Campos Escobedo MD WBC Morphology NOT REPORTED Normal [facility] Comment on above: Performed By: #### C DP, TROPI, BMP, CRP, SED #### [facility] [employer] [address] [place] [address] [phone] Academic Success Coordinator: Campos Escobedo MD Calcium, Ionicon 08-16-2019 Calcium [Mass/Vol] 1.21 mmol/L Normal 1.13-1.33 [facility] Comment on above: Performed By: #### C DP, TROPI, BMP, CRP, SED #### [facility] [employer] [address] [place] [address] [phone] Academic Success Coordinator: Campos Escobedo MD Magnesiumon 08-16-2019 Magnesium [Mass/Vol] 2.1 mg/dL Normal 1.6-2.6 [facility] Comment on above: Performed By: #### C DP, TROPI, BMP, CRP, SED #### [facility] [employer] [address] [place] [address] [phone] Academic Success Coordinator: Campos Escobedo MD Mycoplasma Ab, IgMon 019 Mycoplasma Ab, IgM 0.39 Normal <0.91 [facility] Comment on above: Result Comment: Reference Range: <=0.90 Negative 0.91-1.09 Equivocal >=1.10 Positive Performed By: #### C DP, TROPI, BMP, CRP, SED #### [facility] [employer] [address] [place] [address] [phone] Academic Success Coordinator: Campos Escobedo MD PTon 08-16-2019 INR Coag (PPP) [Relative time] 1.0 {INR} Normal [facility] Comment on above: Result Comment: Therapeutic Range: Moderate Anticoagulant Intensity: INR = 2.0-3.0 High Anticoagulant Intensity: INR = 2.5-3.5 Performed By: #### C DP, TROPI, BMP, CRP, SED #### [facility] [employer] [address] [place] [address] Academic Success Coordinator: Campos Escobedo MD PT Coag (PPP) [Time] 10.7 s Normal 9.0-12.0 [facility] Comment on above: Performed By: #### C DP, TROPI, BMP, CRP, SED #### [address] [address] Academic Success Coordinator: Campos Escobedo MD Phosphorus, Inorg.on Phosphorus, Inorg. 3.3 mg/dL Normal 2.6-4.5 [facility] Comment on above: Performed By: #### C DP, TROPI, BMP, CRP, SED #### [address] [address] Academic Success Coordinator: Campos Esocbedo MD Specimen Rejectionon Reason for rejection Unable to perform testing: Specimen clotted. Normal [facility] Comment on above: Performed By: #### C DP, TROPI, BMP, CRP, SED #### [address] [address] Academic Success Coordinator: Campos Escobedo MD Source of sample .BLOOD Normal [facility] Comment on above: Performed By: #### C DP, TROPI, BMP, CRP, SED #### [address] [address] Academic Success Coordinator: Campos Escobedo MD Test ordered PT, PTT [facility] Comment on above: Performed By: #### C DP, TROPI, BMP, CRP, SED #### [address] [address] Academic Success Coordinator: Campos Escobedo MD ----- NOT REPORTED Normal [facility] Comment on above: Performed By: #### C DP, TROPI, BMP, CRP, SED #### [address] [address] Academic Success Coordinator: Campos Escobedo MD APTTon 08-15-2019 aPTT Coag (Bld) [Time] 27.3 s Normal 20.5-30.5 [facility] Comment on above: Performed By: #### C DP, TROPI, BMP, CRP, SED #### [facility] [employer] [address] [place] [address] [phone] Academic Success Coordinator: Campos Escobedo MD Basic Metabolic Profon 08-15 (cont.) Normal [facility] Comment on above: Result Comment: Aver age GFR for 60-69 years old: 85 mL/min/1.73sq m Chronic Kidney Disease: <60 mL/min/1.73sq m Kidney failure: <15 mL/min/1.73sq m eGFR calculated using average adult body mass. Additional eGFR calculator available at: http://www.[employer]/multiple_crcl_2011.htm Performed By: #### C DP, TROPI, BMP, CRP, SED #### [place] [address] Academic Success Coordinator: Campos Escobedo MD Anion gap [Moles/Vol] 11 mmol/L Normal 9-17 [facility] Comment on above: Performed By: #### C DP, TROPI, BMP, CRP, SED #### [address] [address] Academic Success Coordinator: Campos Escobedo MD Calcium [Mass/Vol] 8.1 mg/dL Low 8.6-10.4 [facility] Comment on above: Performed By: #### C DP, TROPI, BMP, CRP, SED #### [facility] [employer] [address] [place] [address] Academic Success Coordinator: Campos Escobedo MD Chloride [Moles/Vol] 103 mmol/L Normal 98-107 [facility] Comment on above: Performed By: #### C DP, TROPI, BMP, CRP, SED #### [facility] [employer] [address] [place] [address] Academic Success Coordinator: Campos Escobedo MD CO2 [Moles/Vol] 23 mmol/L Normal 20-31 [facility] Comment on above: Performed By: #### C DP, TROPI, BMP, CRP, SED #### [address] [address] Academic Success Coordinator: Campos Escobedo MD Creatinine [Mass/Vol] 0.49 mg/dL Low 0.50-0.90 [facility] Comment on above: Performed By: #### C DP, TROPI, BMP, CRP, SED #### [place] [address] Academic Success Coordinator: Campos Escobedo MD GFR, Amer >60 Normal >60 [facility] Comment on above: Performed By: #### C DP, TROPI, BMP, CRP, SED #### [address] [address] Academic Success Coordinator: Campos Escobedo MD GFR,non Amer >60 Normal >60 [facility] Comment on above: Performed By: #### C DP, TROPI, BMP, CRP, SED #### [address] [address] Academic Success Coordinator: Campos Escobedo MD Glucose [Mass/Vol] 183 mg/dL High 70-99 [facility] Comment on above: Performed By: #### C DP, TROPI, BMP, CRP, SED #### [place] [address] Academic Success Coordinator: Campos Escobedo MD Potassium [Moles/Vol] 3.6 mmol/L Low 3.7-5.3 [facility] Comment on above: Performed By: #### C DP, TROPI, BMP, CRP, SED #### [address] [address] Academic Success Coordinator: Campos Escobedo MD Sodium [Moles/Vol] 137 mmol/L Normal 135-144 [facility] Comment on above: Performed By: #### C DP, TROPI, BMP, CRP, SED #### [address] [address] Academic Success Coordinator: Campos Escobedo MD Urea nitrogen [Mass/Vol] 5 mg/dL Low 06-07 [facility] Comment on above: Performed By: #### C DP, TROPI, BMP, CRP, SED #### [address] [address] Academic Success Coordinator: Campos Escobedo MD BUN/CRE Ratio NOT REPORTED Normal 07-05 [facility] Comment on above: Performed By: #### C DP, TROPI, BMP, CRP, SED #### [address] [address] Academic Success Coordinator: Campos Escobedo MD Staging: NOT REPORTED Normal [facility] Comment on above: Performed By: #### C DP, TROPI, BMP, CRP, SED #### [address] [address] Academic Success Coordinator: Campos Escobedo MD C-Reactive Proteinon 019 CRP [Mass/Vol] 169.1 mg/L High 0.0-5.0 [facility] Comment on above: Performed By: #### C DP, TROPI, BMP, CRP, SED #### [address] [address] Academic Success Coordinator: Campos Escobedo MD CBC with Diffon 08-15-2019 Abs. Basophil 0.06 k/uL Normal 0.00-0.20 [facility] Comment on above: Performed By: #### C DP, TROPI, BMP, CRP, SED #### [facility] [employer] [address] [place] [address] Academic Success Coordinator: Campos Escobedo MD Abs.Imm.Granulocyte 0.10 k/uL Normal 0.00-0.30 [facility] Comment on above: Performed By: #### C DP, TROPI, BMP, CRP, SED #### [place] [address] Academic Success Coordinator: Campos Escobedo MD Abs.Neutrophil (Seg) 7.41 k/uL Normal 1.50-8.10 [facility] Comment on above: Performed By: #### C DP, TROPI, BMP, CRP, SED #### [place] [address] Academic Success Coordinator: Campos Escobedo MD Basophils/100 WBC (Bld) 1 % Normal 0-2 [facility] Comment on above: Performed By: #### C DP, TROPI, BMP, CRP, SED #### [place] [address] Academic Success Coordinator: Campos Escobedo MD Eosinophils (Bld) [#/Vol] 0.38 10*3/uL Normal 0.00-0.44 [facility] Comment on above: Performed By: #### C DP, TROPI, BMP, CRP, SED #### [place] [address] Academic Success Coordinator: Campos Escobedo MD Eosinophils/100 WBC (Bld) 4 % Normal 1-4 [facility] Comment on above: Performed By: #### C DP, TROPI, BMP, CRP, SED #### [place] [address] Academic Success Coordinator: Campos Escobedo MD Erythrocyte distribution width (RBC) [Ratio] 12.4 % Normal 11.8-14.4 [facility] Comment on above: Performed By: #### C DP, TROPI, BMP, CRP, SED #### [place] [address] Academic Success Coordinator: Campos Escobedo MD Hematocrit (Bld) [Volume fraction] 31.0 % Low 36.3-47.1 [facility] Comment on above: Performed By: #### C DP, TROPI, BMP, CRP, SED #### [address] [address] Academic Success Coordinator: Campos Escobedo MD Hemoglobin (Bld) [Mass/Vol] 9.9 g/dL Low 11.9-15.1 [facility] Comment on above: Performed By: #### C DP, TROPI, BMP, CRP, SED #### [place] [address] Academic Success Coordinator: Campos Escobedo MD Immature granulocytes (Bld) [#/Vol] 1 % High 0 [facility] Comment on above: Performed By: #### C DP, TROPI, BMP, CRP, SED #### [place] [address] Academic Success Coordinator: Campos Escobedo MD Lymphocytes (Bld) [#/Vol] 1.03 10*3/uL Low 1.10-3.70 [facility] Comment on above: Performed By: #### C DP, TROPI, BMP, CRP, SED #### [place] [address] Academic Success Coordinator: Campos Escobedo MD Lymphocytes/100 WBC (Bld) 11 % Low 24-43 [facility] Comment on above: Performed By: #### C DP, TROPI, BMP, CRP, SED #### [place] [address] Academic Success Coordinator: Campos Escobedo MD MCH (RBC) [Entitic mass] 30.9 pg Normal 25.2-33.5 [facility] Comment on above: Performed By: #### C DP, TROPI, BMP, CRP, SED #### [facility] [employer] [address] [place] [phone] Academic Success Coordinator: Campos Escobedo MD MCHC (RBC) [Mass/Vol] 31.9 g/dL Normal 28.4-34.8 [facility] Comment on above: Performed By: #### C DP, TROPI, BMP, CRP, SED #### [address] [address] Academic Success Coordinator: Campos Escobedo MD MCV (RBC) [Entitic vol] 96.9 fL Normal 82.6-102.9 [facility] Comment on above: Performed By: #### C DP, TROPI, BMP, CRP, SED #### [address] [address] Academic Success Coordinator: Campos Escobedo MD Monocytes (Bld) [#/Vol] 0.72 10*3/uL Normal 0.10-1.20 [facility] Comment on above: Performed By: #### C DP, TROPI, BMP, CRP, SED #### [place] [address] Academic Success Coordinator: Campos Escobedo MD Monocytes/100 WBC (Bld) 7 % Normal 3-12 [facility] Comment on above: Performed By: #### C DP, TROPI, BMP, CRP, SED #### [address] [address] Academic Success Coordinator: Campos Escobedo MD Neutrophil (Seg) 76 % High 36-65 [facility] Comment on above: Performed By: #### C DP, TROPI, BMP, CRP, SED #### [address] [address] Academic Success Coordinator: Campos Escobedo MD NRBC Automated 0.0 per 100 WBC Normal 0.0 [facility] Comment on above: Performed By: #### C DP, TROPI, BMP, CRP, SED #### [address] [address] Academic Success Coordinator: Campos Escobedo MD Platelet mean volume (Bld) [Entitic vol] 8.8 fL Normal 8.1-13.5 [facility] Comment on above: Performed By: #### C DP, TROPI, BMP, CRP, SED #### [address] [address] Academic Success Coordinator: Campos Escobedo MD Platelets (Bld) [#/Vol] 486 10*3/uL High 138-453 [facility] Comment on above: Performed By: #### C DP, TROPI, BMP, CRP, SED #### [facility] [employer] [address] [place] [phone] Academic Success Coordinator: Campos Escobedo MD RBC (Bld) [#/Vol] 3.20 10*6/uL Low 3.95-5.11 [facility] Comment on above: Performed By: #### C DP, TROPI, BMP, CRP, SED #### [address] [address] Academic Success Coordinator: Campos Escobedo MD WBC (Bld) [#/Vol] 9.7 10*3/uL Normal 3.5-11.3 [facility] Comment on above: Performed By: #### C DP, TROPI, BMP, CRP, SED #### [facility] [employer] [address] [place] [phone] Academic Success Coordinator: Campos Escobedo MD Auto Diff Performed NOT REPORTED Normal [facility] Comment on above: Performed By: #### C DP, TROPI, BMP, CRP, SED #### [facility] [employer] [address] [place] [phone] Academic Success Coordinator: Campos Escobedo MD Platelets (Bld) [#/Vol] NOT REPORTED Normal [facility] Comment on above: Performed By: #### C DP, TROPI, BMP, CRP, SED #### [facility] [employer] [address] [place] [phone] Academic Success Coordinator: Campos Escobedo MD RBC morphology finding Nom (Bld) NOT REPORTED Normal [facility] Comment on above: Performed By: #### C DP, TROPI, BMP, CRP, SED #### [address] [address] Academic Success Coordinator: Campos Escobedo MD WBC Morphology NOT REPORTED Normal [facility] Comment on above: Performed By: #### C DP, TROPI, BMP, CRP, SED #### [facility] [employer] [address] [place] [phone] Academic Success Coordinator: Campos Escobedo MD Calcium, Ionicon 08-15-2019 Calcium [Mass/Vol] 1.06 mmol/L Low 1.13-1.33 [facility] Comment on above: Performed By: #### C DP, TROPI, BMP, CRP, SED #### [place] [address] Academic Success Coordinator: Campos Escobedo MD Magnesiumon 08-15-2019 Magnesium [Mass/Vol] 1.9 mg/dL Normal 1.6-2.6 [facility] Comment on above: Performed By: #### C DP, TROPI, BMP, CRP, SED #### [address] [address] Academic Success Coordinator: Campos Escobedo MD PTon 08-15-2019 INR Coag (PPP) [Relative time] 1.0 {INR} Normal [facility] Comment on above: Result Comment: Therapeutic Range: Moderate Anticoagulant Intensity: INR = 2.0-3.0 High Anticoagulant Intensity: INR = 2.5-3.5 Performed By: #### C DP, TROPI, BMP, CRP, SED #### [address] [address] Academic Success Coordinator: Campos Escobedo MD PT Coag (PPP) [Time] 10.7 s Normal 9.0-12.0 [facility] Comment on above: Performed By: #### C DP, TROPI, BMP, CRP, SED #### [address] [phone] Academic Success Coordinator: Campos Escobedo MD Phosphorus, Inorg.on 019 Phosphorus, Inorg. 2.9 mg/dL Normal 2.6-4.5 [facility] Comment on above: Performed By: #### C DP, TROPI, BMP, CRP, SED #### [address] [address] Academic Success Coordinator: Campos Escobedo MD APTTon 08-14-2019 aPTT Coag (Bld) [Time] 26.3 s Normal 20.5-30.5 [facility] Comment on above: Performed By: #### C DP, TROPI, BMP, CRP, SED #### [address] [address] Academic Success Coordinator: Campos Escobedo MD Basic Metabolic Profon 08-14 (cont.) Normal [facility] Comment on above: Result Comment: Aver age GFR for 60-69 years old: 85 mL/min/1.73sq m Chronic Kidney Disease: <60 mL/min/1.73sq m Kidney failure: <15 mL/min/1.73sq m eGFR calculated using average adult body mass. Additional eGFR calculator available at: http://www.[employer]/multiple_crcl_2011.htm Performed By: #### C DP, TROPI, BMP, CRP, SED #### [address] [address] [employer] Success Coordinator: Campos Escobedo MD Anion gap [Moles/Vol] 13 mmol/L Normal 9-17 [facility] Comment on above: Performed By: #### C DP, TROPI, BMP, CRP, SED #### [address] [id number] Academic Success Coordinator: Campos Escobedo MD Calcium [Mass/Vol] 8.1 mg/dL Low 8.6-10.4 [facility] Comment on above: Performed By: #### C DP, TROPI, BMP, CRP, SED #### [facility] [employer] [address] [place] [address] Academic Success Coordinator: Campos Escobedo MD Chloride [Moles/Vol] 101 mmol/L Normal 98-107 [facility] Comment on above: Performed By: #### C DP, TROPI, BMP, CRP, SED #### [facility] [employer] [address] [place] [address] Academic Success Coordinator: Campos Escobedo MD CO2 [Moles/Vol] 23 mmol/L Normal 20-31 [facility] Comment on above: Performed By: #### C DP, TROPI, BMP, CRP, SED #### [facility] [employer] [address] [place] [address] Academic Success Coordinator: Campos Escobedo MD Creatinine [Mass/Vol] 0.56 mg/dL Normal 0.50-0.90 [facility] Comment on above: Performed By: #### C DP, TROPI, BMP, CRP, SED #### [facility] [employer] [address] [place] [address] Academic Success Coordinator: Campos Escobedo MD GFR, Amer >60 Normal >60 [facility] Comment on above: Performed By: #### C DP, TROPI, BMP, CRP, SED #### [facility] [employer] [address] [place] [address] Academic Success Coordinator: Campos Escobedo MD GFR,non Amer >60 Normal >60 [facility] Comment on above: Performed By: #### C DP, TROPI, BMP, CRP, SED #### [facility] [employer] [address] [place] [address] Academic Success Coordinator: Campos Escobedo MD Glucose [Mass/Vol] 164 mg/dL High 70-99 [facility] Comment on above: Performed By: #### C DP, TROPI, BMP, CRP, SED #### [address] [address] Academic Success Coordinator: Campos Escobedo MD Potassium [Moles/Vol] 3.8 mmol/L Normal 3.7-5.3 [facility] Comment on above: Performed By: #### C DP, TROPI, BMP, CRP, SED #### [place] [address] Academic Success Coordinator: Camops Escobedo MD Sodium [Moles/Vol] 137 mmol/L Normal 135-144 [facility] Comment on above: Performed By: #### C DP, TROPI, BMP, CRP, SED #### [place] [address] Academic Success Coordinator: Campos Escobedo MD Urea nitrogen [Mass/Vol] 7 mg/dL Low 8-23 [facility] Comment on above: Performed By: #### C DP, TROPI, BMP, CRP, SED #### [place] [address] Academic Success Coordinator: Campos Escobedo MD BUN/CRE Ratio NOT REPORTED Normal - [facility] Comment on above: Performed By: #### C DP, TROPI, BMP, CRP, SED #### [place] [address] Academic Success Coordinator: Campos Escobedo MD Staging: NOT REPORTED Normal [facility] Comment on above: Performed By: #### C DP, TROPI, BMP, CRP, SED #### [place] [address] Academic Success Coordinator: Campos Escobedo MD CBC with Diffon 08-14-2019 Abs. Basophil 0.05 k/uL Normal 0.00-0.20 [facility] Comment on above: Performed By: #### C DP, TROPI, BMP, CRP, SED #### [place] [address] Academic Success Coordinator: Campos Escobedo MD Abs.Imm.Granulocyte 0.11 k/uL Normal 0.00-0.30 [facility] Comment on above: Performed By: #### C DP, TROPI, BMP, CRP, SED #### [place] [address] Academic Success Coordinator: Campos Escobedo MD Abs.Neutrophil (Seg) 6.99 k/uL Normal 1.50-8.10 [facility] Comment on above: Performed By: #### C DP, TROPI, BMP, CRP, SED #### [place] [address] Academic Success Coordinator: Campos Escobedo MD Basophils/100 WBC (Bld) 1 % Normal 0-2 [facility] Comment on above: Performed By: #### C DP, TROPI, BMP, CRP, SED #### [place] [address] Academic Success Coordinator: Campos Escobedo MD Eosinophils (Bld) [#/Vol] 0.38 10*3/uL Normal 0.00-0.44 [facility] Comment on above: Performed By: #### C DP, TROPI, BMP, CRP, SED #### [place] [address] Academic Success Coordinator: Campos Escobedo MD Eosinophils/100 WBC (Bld) 4 % Normal 1-4 [facility] Comment on above: Performed By: #### C DP, TROPI, BMP, CRP, SED #### [place] [address] Academic Success Coordinator: Campos Escobedo MD Erythrocyte distribution width (RBC) [Ratio] 12.6 % Normal 11.8-14.4 [facility] Comment on above: Performed By: #### C DP, TROPI, BMP, CRP, SED #### [address] [address] Academic Success Coordinator: Campos Escobedo MD Hematocrit (Bld) [Volume fraction] 31.7 % Low 36.3-47.1 [facility] Comment on above: Performed By: #### C DP, TROPI, BMP, CRP, SED #### [place] [address] Academic Success Coordinator: Campos Escobedo MD Hemoglobin (Bld) [Mass/Vol] 9.9 g/dL Low 11.9-15.1 [facility] Comment on above: Performed By: #### C DP, TROPI, BMP, CRP, SED #### [place] [address] Academic Success Coordinator: Campos Escobedo MD Immature granulocytes (Bld) [#/Vol] 1 % High 0 [facility] Comment on above: Performed By: #### C DP, TROPI, BMP, CRP, SED #### [place] [address] Academic Success Coordinator: Campos Escobedo MD Lymphocytes (Bld) [#/Vol] 1.19 10*3/uL Normal 1.10-3.70 [facility] Comment on above: Performed By: #### C DP, TROPI, BMP, CRP, SED #### [place] [address] Academic Success Coordinator: Campos Escobedo MD Lymphocytes/100 WBC (Bld) 13 % Low 24-43 [facility] Comment on above: Performed By: #### C DP, TROPI, BMP, CRP, SED #### [address] [address] Academic Success Coordinator: Campos Escobedo MD MCH (RBC) [Entitic mass] 30.3 pg Normal 25.2-33.5 [facility] Comment on above: Performed By: #### C DP, TROPI, BMP, CRP, SED #### [address] [address] Academic Success Coordinator: Campos Escobedo MD MCHC (RBC) [Mass/Vol] 31.2 g/dL Normal 28.4-34.8 [facility] Comment on above: Performed By: #### C DP, TROPI, BMP, CRP, SED #### [address] [address] Academic Success Coordinator: Campos Escobedo MD MCV (RBC) [Entitic vol] 96.9 fL Normal 82.6-102.9 [facility] Comment on above: Performed By: #### C DP, TROPI, BMP, CRP, SED #### [place] [address] Academic Success Coordinator: Campos Escobedo MD Monocytes (Bld) [#/Vol] 0.79 10*3/uL Normal 0.10-1.20 [facility] Comment on above: Performed By: #### C DP, TROPI, BMP, CRP, SED #### [address] [address] Academic Success Coordinator: Campos Escobedo MD Monocytes/100 WBC (Bld) 8 % Normal 3-12 [facility] Comment on above: Performed By: #### C DP, TROPI, BMP, CRP, SED #### [address] [address] Academic Success Coordinator: Campos Escobedo MD Neutrophil (Seg) 73 % High 36-65 [facility] Comment on above: Performed By: #### C DP, TROPI, BMP, CRP, SED #### [address] [address] Academic Success Coordinator: Campos Escobedo MD NRBC Automated 0.0 per 100 WBC Normal 0.0 [facility] Comment on above: Performed By: #### C DP, TROPI, BMP, CRP, SED #### [address] [address] Academic Success Coordinator: Campos Escobedo MD Platelet mean volume (Bld) [Entitic vol] 8.8 fL Normal 8.1-13.5 [facility] Comment on above: Performed By: #### C DP, TROPI, BMP, CRP, SED #### [address] [address] Academic Success Coordinator: Campos Escobedo MD Platelets (Bld) [#/Vol] 493 10*3/uL High 138-453 [facility] Comment on above: Performed By: #### C DP, TROPI, BMP, CRP, SED #### [address] [address] Academic Success Coordinator: Campos Escobedo MD RBC (Bld) [#/Vol] 3.27 10*6/uL Low 3.95-5.11 [facility] Comment on above: Performed By: #### C DP, TROPI, BMP, CRP, SED #### [address] [address] Academic Success Coordinator: Campos Escobedo MD WBC (Bld) [#/Vol] 9.5 10*3/uL Normal 3.5-11.3 [facility] Comment on above: Performed By: #### C DP, TROPI, BMP, CRP, SED #### [address] [address] Academic Success Coordinator: Campos Escobedo MD Auto Diff Performed NOT REPORTED Normal [facility] Comment on above: Performed By: #### C DP, TROPI, BMP, CRP, SED #### [address] [id number] Academic Success Coordinator: Campos Escobedo MD Platelets (Bld) [#/Vol] NOT REPORTED Normal [facility] Comment on above: Performed By: #### C DP, TROPI, BMP, CRP, SED #### [facility] [employer] [address] [place] [address] Academic Success Coordinator: Campos Escobedo MD RBC morphology finding Nom (Bld) NOT REPORTED Normal [facility] Comment on above: Performed By: #### C DP, TROPI, BMP, CRP, SED #### [facility] [employer] [address] [place] [address] Academic Success Coordinator: Campos Escobedo MD WBC Morphology NOT REPORTED Normal [facility] Comment on above: Performed By: #### C DP, TROPI, BMP, CRP, SED #### [facility] [employer] [address] [place] [address] Academic Success Coordinator: Campos Escobedo MD Calcium, [employer]icon 08-14-2019 Calcium [Mass/Vol] 1.09 mmol/L Low 1.13-1.33 [facility] Comment on above: Performed By: #### C DP, TROPI, BMP, CRP, SED #### [facility] [employer] [address] [place] [address] Academic Success Coordinator: Campos Escobedo MD Magnesiumon 08-14-2019 Magnesium [Mass/Vol] 1.8 mg/dL Normal 1.6-2.6 [facility] Comment on above: Performed By: #### C DP, TROPI, BMP, CRP, SED #### [facility] [employer] [address] [place] [address] Academic Success Coordinator: Campos Escobedo MD Mycoplasma Ab, IgMon 019 Mycoplasma Ab, IgM 0.40 Normal <0.91 [facility] Comment on above: Result Comment: Reference Range: <=0.90 Negative 0.91-1.09 Equivocal >=1.10 Positive Performed By: #### C DP, TROPI, BMP, CRP, SED #### [address] [address] Academic Success Coordinator: Campos Escobedo MD PTon 08-14-2019 INR Coag (PPP) [Relative time] 1.0 {INR} Normal [facility] Comment on above: Result Comment: Therapeutic Range: Moderate Anticoagulant Intensity: INR = 2.0-3.0 High Anticoagulant Intensity: INR = 2.5-3.5 Performed By: #### C DP, TROPI, BMP, CRP, SED #### [address] [address] Academic Success Coordinator: Campos Escobedo MD PT Coag (PPP) [Time] 10.7 s Normal 9.0-12.0 [facility] Comment on above: Performed By: #### C DP, TROPI, BMP, CRP, SED #### [address] [address] Academic Success Coordinator: Campos Escobedo MD Phosphorus, Inorg.on 019 Phosphorus, Inorg. 3.1 mg/dL Normal 2.6-4.5 [facility] Comment on above: Performed By: #### C DP, TROPI, BMP, CRP, SED #### [address] [address] Academic Success Coordinator: Campos Escobedo MD APTTon 08-13-2019 aPTT Coag (Bld) [Time] 26.0 s Normal 20.5-30.5 [facility] Comment on above: Performed By: #### C DP, IOCAL, PT, PTT, BMP, MG, MAIKEL, TSHX #### [address] [phone] Academic Success Coordinator: Campos Escobedo MD Basic Metabolic Profon 08-13 (cont.) [facility] Comment on above: Result Comment: Aver age GFR for 60-69 years old: 85 mL/min/1.73sq m Chronic Kidney Disease: <60 mL/min/1.73sq m Kidney failure: <15 mL/min/1.73sq m eGFR calculated using average adult body mass. Additional eGFR calculator available at: http://www.[employer]/multiple_crcl_2012.htm Performed By: #### C DP, IOCAL, PT, PTT, BMP, MG, MAIKEL, TSHX #### [address] [address] Academic Success Coordinator: Campos Escobedo MD Anion gap [Moles/Vol] 14 mmol/L Normal 9-17 [facility] Comment on above: Performed By: #### C DP, IOCAL, PT, PTT, BMP, MG, MAIKEL, TSHX #### [address] [address] Academic Success Coordinator: Campos Escobedo MD Calcium [Mass/Vol] 8.3 mg/dL Low 8.6-10.4 [facility] Comment on above: Performed By: #### C DP, IOCAL, PT, PTT, BMP, MG, MAIKEL, TSHX #### [address] [address] Academic Success Coordinator: Campos Escobedo MD Chloride [Moles/Vol] 97 mmol/L Low 98-107 [facility] Comment on above: Performed By: #### C DP, IOCAL, PT, PTT, BMP, MG, MAIKEL, TSHX #### [facility] [employer] [address] [place] [address] Academic Success Coordinator: Campos Escobedo MD CO2 [Moles/Vol] 23 mmol/L Normal 20-31 [facility] Comment on above: Performed By: #### C DP, IOCAL, PT, PTT, BMP, MG, MAIKEL, TSHX #### [address] [address] Academic Success Coordinator: Campos Escobedo MD Creatinine [Mass/Vol] 0.51 mg/dL Normal 0.50-0.90 [facility] Comment on above: Performed By: #### C DP, IOCAL, PT, PTT, BMP, MG, MAIKEL, TSHX #### [address] [address] Academic Success Coordinator: Campos Escobedo MD GFR, Amer >60 Normal >60 [facility] Comment on above: Performed By: #### C DP, IOCAL, PT, PTT, BMP, MG, MAIKEL, TSHX #### [address] [address] Academic Success Coordinator: Campos Escobedo MD GFR,non Amer >60 Normal >60 [facility] Comment on above: Performed By: #### C DP, IOCAL, PT, PTT, BMP, MG, MAIKEL, TSHX #### [address] [address] Academic Success Coordinator: Campos Escobedo MD Glucose [Mass/Vol] 192 mg/dL High 70-99 [facility] Comment on above: Performed By: #### C DP, IOCAL, PT, PTT, BMP, MG, MAIKEL, TSHX #### [address] [address] Academic Success Coordinator: Campos Escobedo MD Potassium [Moles/Vol] 3.3 mmol/L Low 3.7-5.3 [facility] Comment on above: Performed By: #### C DP, IOCAL, PT, PTT, BMP, MG, MAIKEL, TSHX #### [address] [address] Academic Success Coordinator: Campos Escobedo MD Sodium [Moles/Vol] 134 mmol/L Low 135-144 [facility] Comment on above: Performed By: #### C DP, IOCAL, PT, PTT, BMP, MG, MAIKEL, TSHX #### [facility] [employer] [address] [place] [address] Academic Success Coordinator: Campos Escobedo MD Urea nitrogen [Mass/Vol] 8 mg/dL Normal 8-23 [facility] Comment on above: Performed By: #### C DP, IOCAL, PT, PTT, BMP, MG, MAIKEL, TSHX #### [address] [address] Academic Success Coordinator: Campos Escobedo MD BUN/CRE Ratio NOT REPORTED Normal - [facility] Comment on above: Performed By: #### C DP, IOCAL, PT, PTT, BMP, MG, MAIKEL, TSHX #### [address] [address] Academic Success Coordinator: Campos Escobedo MD Staging: NOT REPORTED Normal [facility] Comment on above: Performed By: #### C DP, IOCAL, PT, PTT, BMP, MG, MAIKEL, TSHX #### [address] [address] Academic Success Coordinator: Campos Escobedo MD Anion gap [Moles/Vol] 15 mmol/L Normal 9-17 [facility] Comment on above: Performed By: #### C DP, TROPI, BMP, CRP, SED #### [address] [address] Academic Success Coordinator: Campos Escobedo MD Calcium [Mass/Vol] 8.4 mg/dL Low 8.6-10.4 [facility] Comment on above: Performed By: #### C DP, TROPI, BMP, CRP, SED #### [address] [address] Academic Success Coordinator: Campos Escobedo MD Chloride [Moles/Vol] 98 mmol/L Normal 98-107 [facility] Comment on above: Performed By: #### C DP, TROPI, BMP, CRP, SED #### [address] [address] Academic Success Coordinator: Campos Escobedo MD CO2 [Moles/Vol] 24 mmol/L Normal 20-31 [facility] Comment on above: Performed By: #### C DP, TROPI, BMP, CRP, SED #### [facility] [employer] [address] [place] [address] Academic Success Coordinator: Campos Escobedo MD Creatinine [Mass/Vol] 0.53 mg/dL Normal 0.50-0.90 [facility] Comment on above: Performed By: #### C DP, TROPI, BMP, CRP, SED #### [facility] [employer] [address] [place] [address] Academic Success Coordinator: Campos Escobedo MD GFR, Amer >60 Normal >60 [facility] Comment on above: Performed By: #### C DP, TROPI, BMP, CRP, SED #### [facility] [employer] [address] [place] [address] Academic Success Coordinator: Campos Escobedo MD GFR,non Amer >60 Normal >60 [facility] Comment on above: Performed By: #### C DP, TROPI, BMP, CRP, SED #### [facility] [employer] [address] [place] [address] Academic Success Coordinator: Campos Escobedo MD Glucose [Mass/Vol] 169 mg/dL High 70-99 [facility] Comment on above: Performed By: #### C DP, TROPI, BMP, CRP, SED #### [facility] [employer] [address] [place] [address] Academic Success Coordinator: Campos Escobedo MD Potassium [Moles/Vol] 3.3 mmol/L Low 3.7-5.3 [facility] Comment on above: Performed By: #### C DP, TROPI, BMP, CRP, SED #### [facility] [employer] [address] [place] [address] Academic Success Coordinator: Campos Escobedo MD Sodium [Moles/Vol] 137 mmol/L Normal 135-144 [facility] Comment on above: Performed By: #### C DP, TROPI, BMP, CRP, SED #### [address] [address] Academic Success Coordinator: Campos Escobedo MD Urea nitrogen [Mass/Vol] 8 mg/dL Normal 8-23 [facility] Comment on above: Performed By: #### C DP, TROPI, BMP, CRP, SED #### [facility] [employer] [address] [place] [address] Academic Success Coordinator: Campos Escobedo MD (cont.) [facility] Comment on above: Result Comment: Aver age GFR for 60-69 years old: 85 mL/min/1.73sq m Chronic Kidney Disease: <60 mL/min/1.73sq m Kidney failure: <15 mL/min/1.73sq m eGFR calculated using average adult body mass. Additional eGFR calculator available at: http://www.[employer].com/multiple_crcl_2012.htm Performed By: #### C DP, TROPI, BMP, CRP, SED #### [facility] [employer] [address] [place] [address] Academic Success Coordinator: Campos Escobedo MD BUN/CRE Ratio NOT REPORTED Normal 9-20 [facility] Comment on above: Performed By: #### C DP, TROPI, BMP, CRP, SED #### [facility] [address] [place] [address] Academic Success Coordinator: Campos Escobedo MD Staging: NOT REPORTED Normal [facility] Comment on above: Performed By: #### C DP, TROPI, BMP, CRP, SED #### [facility] [employer] [address] [place] [address] [phone] Academic Success Coordinator: Campos Escobedo MD C-Reactive Proteinon 10-29-2 019 CRP [Mass/Vol] 169.2 mg/L High 0.0-5.0 [facility] Comment on above: Performed By: #### C DP, TROPI, BMP, CRP, SED #### [place] [address] Academic Success Coordinator: Campos Escobedo MD CBC with Diffon 08-13-2019 Abs. Basophil 0.06 k/uL Normal 0.00-0.20 [facility] Comment on above: Performed By: #### C DP, IOCAL, PT, PTT, BMP, MG, MAIKEL, TSHX #### [place] [address] Academic Success Coordinator: Campos Escobedo MD Abs.Imm.Granulocyte 0.08 k/uL Normal 0.00-0.30 [facility] Comment on above: Performed By: #### C DP, IOCAL, PT, PTT, BMP, MG, MAIKEL, TSHX #### [place] [address] Academic Success Coordinator: Campos Escobedo MD Abs.Neutrophil (Seg) 7.45 k/uL Normal 1.50-8.10 [facility] Comment on above: Performed By: #### C DP, IOCAL, PT, PTT, BMP, MG, MAIKEL, TSHX #### [place] [address] Academic Success Coordinator: Campos Escobedo MD Basophils/100 WBC (Bld) 1 % Normal 0-2 [facility] Comment on above: Performed By: #### C DP, IOCAL, PT, PTT, BMP, MG, MAIKEL, TSHX #### [place] [address] Academic Success Coordinator: Campos Escobedo MD Eosinophils (Bld) [#/Vol] 0.35 10*3/uL Normal 0.00-0.44 [facility] Comment on above: Performed By: #### C DP, IOCAL, PT, PTT, BMP, MG, MAIKEL, TSHX #### [facility] [employer] [address] [place] [address] Academic Success Coordinator: Campos Escobedo MD Eosinophils/100 WBC (Bld) 4 % Normal 1-4 [facility] Comment on above: Performed By: #### C DP, IOCAL, PT, PTT, BMP, MG, MAIKEL, TSHX #### [address] [address] Academic Success Coordinator: Campos Escobedo MD Erythrocyte distribution width (RBC) [Ratio] 12.4 % Normal 11.8-14.4 [facility] Comment on above: Performed By: #### C DP, IOCAL, PT, PTT, BMP, MG, MAIKEL, TSHX #### [address] [address] Academic Success Coordinator: Campos Escobedo MD Hematocrit (Bld) [Volume fraction] 33.5 % Low 36.3-47.1 [facility] Comment on above: Performed By: #### C DP, IOCAL, PT, PTT, BMP, MG, MAIKEL, TSHX #### [place] [address] Academic Success Coordinator: Campos Escobedo MD Hemoglobin (Bld) [Mass/Vol] 10.6 g/dL Low 11.9-15.1 [facility] Comment on above: Performed By: #### C DP, IOCAL, PT, PTT, BMP, MG, MAIKEL, TSHX #### [facility] [employer] [address] [place] [address] Academic Success Coordinator: Campos Escobedo MD Immature granulocytes (Bld) [#/Vol] 1 % High 0 [facility] Comment on above: Performed By: #### C DP, IOCAL, PT, PTT, BMP, MG, MAIKEL, TSHX #### [address] [address] Academic Success Coordinator: Campos Escobedo MD Lymphocytes (Bld) [#/Vol] 1.20 10*3/uL Normal 1.10-3.70 [facility] Comment on above: Performed By: #### C DP, IOCAL, PT, PTT, BMP, MG, MAIKEL, TSHX #### [address] [address] Academic Success Coordinator: Campos Escobedo MD Lymphocytes/100 WBC (Bld) 12 % Low 24-43 [facility] Comment on above: Performed By: #### C DP, IOCAL, PT, PTT, BMP, MG, MAIKEL, TSHX #### [place] [address] Academic Success Coordinator: Campos Escobedo MD MCH (RBC) [Entitic mass] 30.1 pg Normal 25.2-33.5 [facility] Comment on above: Performed By: #### C DP, IOCAL, PT, PTT, BMP, MG, MAIKEL, TSHX #### [address] [address] Academic Success Coordinator: Campos Escobedo MD MCHC (RBC) [Mass/Vol] 31.6 g/dL Normal 28.4-34.8 [facility] Comment on above: Performed By: #### C DP, IOCAL, PT, PTT, BMP, MG, MAIKEL, TSHX #### [place] [address] Academic Success Coordinator: Campos Escobedo MD MCV (RBC) [Entitic vol] 95.2 fL Normal 82.6-102.9 [facility] Comment on above: Performed By: #### C DP, IOCAL, PT, PTT, BMP, MG, MAIKEL, TSHX #### [address] [address] Academic Success Coordinator: Campos Escobedo MD Monocytes (Bld) [#/Vol] 0.83 10*3/uL Normal 0.10-1.20 [facility] Comment on above: Performed By: #### C DP, IOCAL, PT, PTT, BMP, MG, MAIKEL, TSHX #### [address] [address] Academic Success Coordinator: Campos Escobedo MD Monocytes/100 WBC (Bld) 8 % Normal 3-12 [facility] Comment on above: Performed By: #### C DP, IOCAL, PT, PTT, BMP, MG, MAIKEL, TSHX #### [address] [address] Academic Success Coordinator: Campos Escobedo MD Neutrophil (Seg) 74 % High 36-65 [facility] Comment on above: Performed By: #### C DP, IOCAL, PT, PTT, BMP, MG, MAIKEL, TSHX #### [address] [address] Academic Success Coordinator: Campos Escobedo MD NRBC Automated 0.0 per 100 WBC Normal 0.0 [facility] [facility] Comment on above: Performed By: #### C DP, IOCAL, PT, PTT, BMP, MG, MAIKEL, TSHX #### [address] [address] Academic Success Coordinator: Campos Escobedo MD Platelet mean volume (Bld) [Entitic vol] 9.1 fL Normal 8.1-13.5 [facility] Comment on above: Performed By: #### C DP, IOCAL, PT, PTT, BMP, MG, MAIKEL, TSHX #### [address] [address] Academic Success Coordinator: Campos Escobedo MD Platelets (Bld) [#/Vol] 487 10*3/uL High 138-453 [facility] Comment on above: Performed By: #### C DP, IOCAL, PT, PTT, BMP, MG, MAIKEL, TSHX #### [address] [address] Academic Success Coordinator: Campos Escobedo MD RBC (Bld) [#/Vol] 3.52 10*6/uL Low 3.95-5.11 [facility] Comment on above: Performed By: #### C DP, IOCAL, PT, PTT, BMP, MG, MAIKEL, TSHX #### [address] [address] Academic Success Coordinator: Campos Escobedo MD WBC (Bld) [#/Vol] 10.0 10*3/uL Normal 3.5-11.3 [facility] Comment on above: Performed By: #### C DP, IOCAL, PT, PTT, BMP, MG, MAIKEL, TSHX #### [address] [address] Academic Success Coordinator: Campos Escobedo MD Auto Diff Performed NOT REPORTED Normal [facility] Comment on above: Performed By: #### C DP, IOCAL, PT, PTT, BMP, MG, MAIKEL, TSHX #### [address] [address] Academic Success Coordinator: Campos Escobedo MD Platelets (Bld) [#/Vol] NOT REPORTED Normal [facility] Comment on above: Performed By: #### C DP, IOCAL, PT, PTT, BMP, MG, MAIKEL, TSHX #### [address] [address] Academic Success Coordinator: Campos Escobedo MD RBC morphology finding Nom (Bld) NOT REPORTED Normal [facility] Comment on above: Performed By: #### C DP, IOCAL, PT, PTT, BMP, MG, MAIKEL, TSHX #### [address] [address] Academic Success Coordinator: Campos Escobedo MD WBC Morphology NOT REPORTED Normal [facility] Comment on above: Performed By: #### C DP, IOCAL, PT, PTT, BMP, MG, MAIKEL, TSHX #### [place] [address] Academic Success Coordinator: Campos Escobedo MD Abs. Basophil 0.06 k/uL Normal 0.00-0.20 [facility] Comment on above: Performed By: #### C DP, TROPI, BMP, CRP, SED #### [place] [address] Academic Success Coordinator: Campos Escobedo MD Abs.Imm.Granulocyte 0.08 k/uL Normal 0.00-0.30 [facility] Comment on above: Performed By: #### C DP, TROPI, BMP, CRP, SED #### [place] [address] Academic Success Coordinator: Campos Escobedo MD Abs.Neutrophil (Seg) 6.97 k/uL Normal 1.50-8.10 [facility] Comment on above: Performed By: #### C DP, TROPI, BMP, CRP, SED #### [place] [address] Academic Success Coordinator: Campos Escobedo MD Basophils/100 WBC (Bld) 1 % Normal 0-2 [facility] Comment on above: Performed By: #### C DP, TROPI, BMP, CRP, SED #### [place] [address] Academic Success Coordinator: Campos Escobedo MD Eosinophils (Bld) [#/Vol] 0.35 10*3/uL Normal 0.00-0.44 [facility] Comment on above: Performed By: #### C DP, TROPI, BMP, CRP, SED #### [place] [address] Academic Success Coordinator: Campos Escobedo MD Eosinophils/100 WBC (Bld) 4 % Normal 1-4 [facility] Comment on above: Performed By: #### C DP, TROPI, BMP, CRP, SED #### [place] [address] Academic Success Coordinator: Campos Escobedo MD Erythrocyte distribution width (RBC) [Ratio] 12.5 % Normal 11.8-14.4 [facility] Comment on above: Performed By: #### C DP, TROPI, BMP, CRP, SED #### [place] [address] Academic Success Coordinator: Campos Escobedo MD Hematocrit (Bld) [Volume fraction] 32.3 % Low 36.3-47.1 [facility] Comment on above: Performed By: #### C DP, TROPI, BMP, CRP, SED #### [place] [address] Academic Success Coordinator: Campos Escobedo MD Hemoglobin (Bld) [Mass/Vol] 10.6 g/dL Low 11.9-15.1 [facility] Comment on above: Performed By: #### C DP, TROPI, BMP, CRP, SED #### [place] [address] Academic Success Coordinator: Campos Escobedo MD Immature granulocytes (Bld) [#/Vol] 1 % High 0 [facility] Comment on above: Performed By: #### C DP, TROPI, BMP, CRP, SED #### [place] [address] Academic Success Coordinator: Campos Escobedo MD Lymphocytes (Bld) [#/Vol] 1.62 10*3/uL Normal 1.10-3.70 [facility] Comment on above: Performed By: #### C DP, TROPI, BMP, CRP, SED #### [place] [address] Academic Success Coordinator: Campos Escobedo MD Lymphocytes/100 WBC (Bld) 16 % Low 24-43 [facility] Comment on above: Performed By: #### C DP, TROPI, BMP, CRP, SED #### [address] [address] Academic Success Coordinator: Campos Escobedo MD MCH (RBC) [Entitic mass] 30.9 pg Normal 25.2-33.5 [facility] Comment on above: Performed By: #### C DP, TROPI, BMP, CRP, SED #### [address] [address] Academic Success Coordinator: Campos Escobedo MD MCHC (RBC) [Mass/Vol] 32.8 g/dL Normal 28.4-34.8 [facility] Comment on above: Performed By: #### C DP, TROPI, BMP, CRP, SED #### [address] [address] Academic Success Coordinator: Campos Escobedo MD MCV (RBC) [Entitic vol] 94.2 fL Normal 82.6-102.9 [facility] Comment on above: Performed By: #### C DP, TROPI, BMP, CRP, SED #### [address] [address] Academic Success Coordinator: Campos Escobedo MD Monocytes (Bld) [#/Vol] 0.96 10*3/uL Normal 0.10-1.20 [facility] Comment on above: Performed By: #### C DP, TROPI, BMP, CRP, SED #### [address] [address] Academic Success Coordinator: Campos Escobedo MD Monocytes/100 WBC (Bld) 10 % Normal 3-12 [facility] Comment on above: Performed By: #### C DP, TROPI, BMP, CRP, SED #### [address] [address] Academic Success Coordinator: Campos Escobedo MD Neutrophil (Seg) 68 % High 36-65 [facility] Comment on above: Performed By: #### C DP, TROPI, BMP, CRP, SED #### [address] [address] Academic Success Coordinator: Campos Escobedo MD NRBC Automated 0.0 per 100 WBC Normal 0.0 [facility] Comment on above: Performed By: #### C DP, TROPI, BMP, CRP, SED #### [address] [address] Academic Success Coordinator: Campos Escobedo MD Platelet mean volume (Bld) [Entitic vol] 8.7 fL Normal 8.1-13.5 [facility] Comment on above: Performed By: #### C DP, TROPI, BMP, CRP, SED #### [address] [address] Academic Success Coordinator: Campos Escobedo MD Platelets (Bld) [#/Vol] 460 10*3/uL High 138-453 [facility] Comment on above: Performed By: #### C DP, TROPI, BMP, CRP, SED #### [address] [address] Academic Success Coordinator: Campos Escobedo MD RBC (Bld) [#/Vol] 3.43 10*6/uL Low 3.95-5.11 [facility] Comment on above: Performed By: #### C DP, TROPI, BMP, CRP, SED #### [address] [address] Academic Success Coordinator: Campos Escobedo MD WBC (Bld) [#/Vol] 10.0 10*3/uL Normal 3.5-11.3 [facility] Comment on above: Performed By: #### C DP, TROPI, BMP, CRP, SED #### [address] [address] Academic Success Coordinator: Campos Escobedo MD Auto Diff Performed NOT REPORTED Normal [facility] Comment on above: Performed By: #### C DP, TROPI, BMP, CRP, SED #### [facility] [address] [place] [address] Academic Success Coordinator: Campos Escobedo MD Platelets (Bld) [#/Vol] NOT REPORTED Normal [facility] Comment on above: Performed By: #### C DP, TROPI, BMP, CRP, SED #### [facility] [address] [place] [address] Academic Success Coordinator: Campos Escobedo MD RBC morphology finding Nom (Bld) NOT REPORTED Normal [facility] Comment on above: Performed By: #### C DP, TROPI, BMP, CRP, SED #### [address] [address] Academic Success Coordinator: Campos Escobedo MD WBC Morphology NOT REPORTED Normal [facility] Comment on above: Performed By: #### C DP, TROPI, BMP, CRP, SED #### [address] [address] Academic Success Coordinator: Campos Escobedo MD Calcium, [employer] 08-13-2019 Calcium [Mass/Vol] 1.08 mmol/L Low 1.13-1.33 [facility] Comment on above: Performed By: #### C DP, IOCAL, PT, PTT, BMP, MG, MAIKEL, TSHX #### [address] [address] Academic Success Coordinator: Campos Escobedo MD Flu A/B Ag Detectionon 08-13 Flu A/B Ag Detection Specimen Descriptio n .NASOPHARYNGEAL SWAB Special Requests NOT REPORTED Direct Exam PRESUMPTIVE NEGATIVE for Influenza A + B antigens. PCR testing to confirm this result is available upon request. Specimen will be saved in the laboratory for 7 days. Please call [phone] if PCR testing is indicated. Report Status FINAL 08/13/2019 Normal [facility] Comment on above: Performed By: #### C DP, TROPI, BMP, CRP, SED #### [address] [address] Academic Success Coordinator: Campos Escobedo MD MRSA, DNA, Nasalon 9 MRSA, DNA, Nasal NEGATIVE: MRSA DNA n ot detected by nucleic acid amplification. Normal NMRSAA [facility] Comment on above: Result Comment: Results should be used as an adjunct to nosocomial control efforts to identify patients needing enhanced precautions. The test is not intended to identify patients with staphylococcal infections. Results should not be used to guide or monitor treatment for MRSA infections. Performed By: #### C DP, TROPI, BMP, CRP, SED #### [facility] [employer] [address] [place] [address] Academic Success Coordinator: Campos Escobedo MD Specimen Description .NASAL SWAB Normal [facility] Comment on above: Performed By: #### C DP, TROPI, BMP, CRP, SED #### [facility] [employer] [address] [place] [address] Academic Success Coordinator: Campos Escobedo MD Magnesiumon 08-13-2019 Magnesium [Mass/Vol] 1.8 mg/dL Normal 1.6-2.6 [facility] Comment on above: Performed By: #### C DP, TROPI, BMP, CRP, SED #### [facility] [employer] [address] [place] [address] Academic Success Coordinator: Campos Escobedo MD PTon 08-13-2019 INR Coag (PPP) [Relative time] 1.0 {INR} Normal [facility] Comment on above: Result Comment: Therapeutic Range: Moderate Anticoagulant Intensity: INR = 2.0-3.0 High Anticoagulant Intensity: INR = 2.5-3.5 Performed By: #### C DP, IOCAL, PT, PTT, BMP, MG, MAIKEL, TSHX #### [address] [address] Academic Success Coordinator: Campos Escobedo MD PT Coag (PPP) [Time] 11.0 s Normal 9.0-12.0 [facility] Comment on above: Performed By: #### C DP, IOCAL, PT, PTT, BMP, MG, MAIKEL, TSHX #### [employer] [address] [place] [phone] Academic Success Coordinator: Campos Escobedo MD Phosphorus, Inorg.on 019 Phosphorus, Inorg. 2.8 mg/dL Normal 2.6-4.5 [facility] Comment on above: Performed By: #### C DP, TROPI, BMP, CRP, SED #### [facility] [address] [place] [address] [phone] Academic Success Coordinator: Campos Escobedo MD Sedimentation Rateon 019 Sedimentation Rate 104 mm High 0-20 [facility] Comment on above: Performed By: #### C DP, TROPI, BMP, CRP, SED #### [facility] [address] [place] [address] [phone] Academic Success Coordinator: Campos Escobedo MD TSH w/reflex to FT4on 2018 TSH Qn 4.54 m[IU]/L Normal 0.30-5.00 [facility] Comment on above: Performed By: #### C DP, TROPI, BMP, CRP, SED #### [employer] [address] [place] [address] [phone] Academic Success Coordinator: Campos Escobedo MD Troponinon 08-13-2019 Troponin I.cardiac [Mass/Vol] 6 ng/L Normal 0-14 [facility] Comment on above: Result Comment: High Sensitivity Troponin values cannot be compared with other Troponin methodologies. Patients with high levels of Biotin oral intake (i.e >5mg/day) may have falsely decreased Troponin levels. Samples collected within 8 hours of biotin intake may require additional information for diagnosis. Performed By: #### C DP, TROPI, BMP, CRP, SED #### [employer] [address] [place], [place] [phone] Academic Success Coordinator: Campos Escobedo MD Troponin I.cardiac [Mass/Vol] NOT REPORTED Normal <0.03 [facility] Comment on above: Performed By: #### C DP, TROPI, BMP, CRP, SED #### [facility] [employer] [facility] [place] [address] Academic Success Coordinator: Campos Escobedo MD XR CHEST PORTABLEon 08-13-20 [...] Kai Elias MD 08/13/19 Final result Normal [facility] Vital Signs Date Time Vital Sign Value Performing Clinician Facility 05-29-2025 09:37-0400 Body height 162.6 cm [employer] Work Phone: [facility] [employer] 05-29-2025 09:37-0400 Body mass index (BMI) [Ratio] 32.75 kg/m2 [employer] Work Phone: [facility] [employer] 05-29-2025 09:37-0400 Body temperature 97.9 [degF] [employer] Work Phone: [facility] [employer] 05-29-2025 09:37-0400 Body weight 86.55 kg [employer] Work Phone: [facility] [employer] 05-29-2025 09:37-0400 Diastolic blood pressure 84 mm[Hg] [employer] Work Phone: [facility] [employer] 05-29-2025 09:37-0400 Heart rate 71 /min Halle Petznick DO Work Phone: [facility] 05-29-2025 09:37-0400 SaO2% (BldA) [Mass fraction] 97 % Halle Petznick DO Work Phone: [facility] 05-29-2025 09:37-0400 Systolic blood pressure 138 mm[Hg] Halle Petznick DO Work Phone: [facility] 03-12-2025 16:18-0400 Diastolic blood pressure 82 mm[Hg] Monika Radhaholz MANAGER DIABETES Work Phone: [facility] 03-12-2025 16:18-0400 Systolic blood pressure 142 mm[Hg] Monika Aichholz MANAGER DIABETES Work Phone: [facility] 03-12-2025 15:38-0400 Body mass index (BMI) [Ratio] 33.44 kg/m2 Monika Demarhholz MANAGER DIABETES Work Phone: [facility] 03-12-2025 15:38-0400 Body temperature 98.01 [degF] Monika Demarhholz MANAGER DIABETES Work Phone: [facility] 03-12-2025 15:38-0400 Body weight 88.36 kg Monika Aichholz MANAGER DIABETES Work Phone: [facility] 03-12-2025 15:38-0400 Heart rate 81 /min Monika Aichholz MANAGER DIABETES Work Phone: [facility] 03-12-2025 15:38-0400 Respiratory rate 19 /min Omnika Aichholz MANAGER DIABETES Work Phone: [facility] 03-12-2025 15:38-0400 SaO2% (BldA) [Mass fraction] 93 % Monika Aichholz MANAGER DIABETES Work Phone: [facility] 12-26-2024 11:02-0400 Body height 162.6 cm Halle Petznick DO Work Phone: [facility] 12-26-2024 11:02-0400 Body mass index (BMI) [Ratio] 32.96 kg/m2 Halle Petznick DO Work Phone: [facility] 12-26-2024 11:02-0400 Body temperature 97.9 [degF] Halle Petznick DO Work Phone: [facility] 12-26-2024 11:02-0400 Body weight 87.09 kg Halle Petznick DO Work Phone: [facility] 12-26-2024 11:02-0400 Diastolic blood pressure 64 mm[Hg] Halle Petznick DO Work Phone: [facility] 12-26-2024 11:02-0400 Heart rate 73 /min Halle Petznick DO Work Phone: [facility] 12-26-2024 11:02-0400 SaO2% (BldA) [Mass fraction] 93 % Halle Petznick DO Work Phone: [facility] 12-26-2024 11:02-0400 Systolic blood pressure 122 mm[Hg] Halle Petznick DO Work Phone: [facility] 10-24-2024 14:51-0500 Body height 162.6 cm Monika Anna MANAGER DIABETES Work Phone: [facility] 10-24-2024 14:51-0500 Body mass index (BMI) [Ratio] 32.82 kg/m2 Monika Anna MANAGER DIABETES Work Phone: [facility] 10-24-2024 14:51-0500 Body temperature 98.8 [degF] Monika Penelopez MANAGER DIABETES Work Phone: [facility] 10-24-2024 14:51-0500 Body weight 86.73 kg Monika Penelopez MANAGER DIABETES Work Phone: [facility] 10-24-2024 14:51-0500 Diastolic blood pressure 80 mm[Hg] Monika Penelopez MANAGER DIABETES Work Phone: [facility] 10-24-2024 14:51-0500 Heart rate 78 /min Monika Penelopez MANAGER DIABETES Work Phone: [facility] 10-24-2024 14:51-0500 Respiratory rate 18 /min Monika Castillo MANAGER DIABETES Work Phone: [facility] 10-24-2024 14:51-0500 SaO2% (BldA) [Mass fraction] 94 % Monika Castillo MANAGER DIABETES Work Phone: [facility] 10-24-2024 14:51-0500 Systolic blood pressure 138 mm[Hg] Monika Castillo MANAGER DIABETES Work Phone: [facility] 08-23-2024 10:18-0500 Body height 162.6 cm Halle Petznick DO Work Phone: [facility] 08-23-2024 10:18-0500 Body mass index (BMI) [Ratio] 31.93 kg/m2 Halle Petznick DO Work Phone: [facility] 08-23-2024 10:18-0500 Body temperature 97.9 [degF] Halle Petznick DO Work Phone: [facility] 08-23-2024 10:18-0500 Body weight 84.37 kg Halle Petznick DO Work Phone: [facility] 08-23-2024 10:18-0500 Diastolic blood pressure 82 mm[Hg] Halle Petznick DO Work Phone: [facility] 08-23-2024 10:18-0500 Heart rate 60 /min Halle Petznick DO Work Phone: [facility] 08-23-2024 10:18-0500 SaO2% (BldA) [Mass fraction] 94 % Halle Petznick DO Work Phone: [facility] 08-23-2024 10:18-0500 Systolic blood pressure 136 mm[Hg] Halle Petznick DO Work Phone: [facility] 01-25-2024 10:41-0400 Body height 162.56 cm [facility] 01-25-2024 10:41-0400 Body mass index (BMI) [Ratio] 32.4 kg/m2 [facility] 01-25-2024 10:41-0400 Body weight 85.72 kg [facility] 01-25-2024 10:41-0400 Diastolic blood pressure 79 mm[Hg] [facility] 01-25-2024 10:41-0400 Heart rate 71 /min [facility] 01-25-2024 10:41-0400 Systolic blood pressure 136 mm[Hg] [facility] 09-26-2023 10:45-0500 Body height 162.56 cm Cordell Masters Other [facility] [employer] Other 09-26-2023 10:45-0500 Body mass index (BMI) [Ratio] 30.86 kg/m2 Cordell Masters Other [employer] Other 09-26-2023 10:45-0500 Body temperature 96.1 [degF] Cordell Masters Other [employer] Other 09-26-2023 10:45-0500 Body weight 81.56 kg Cordell Masters Other [employer] Other 09-26-2023 10:45-0500 Diastolic blood pressure 71 mm[Hg] Cordell Masters Other [employer] Other 09-26-2023 10:45-0500 Systolic blood pressure 135 mm[Hg] Cordell Masters Other [employer] Other Encounters Encounter Date Encounter Type Care Provider Facility Start: 06-09-2025 End: 06-09-2025 Orders Only Monika Castillo MANAGER DIABETES Work Phone: [facility] Comment on above: Right foot pain (Luzmaria matti Dx) Start: 05-29-2025 End: 05-29-2025 Office outpatient visit 25 minutes Halle Figueroa DO Work Phone: [facility] Comment on above: 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); Type 2 diabetes mellitus with other circulatory complications (HCC); detention (current) use of insulin (HCC); Type 2 diabetes mellitus with stage 3a chronic kidney disease, with long-term current use of insulin (HCC) Start: 05-29-2025 End: 05-29-2025 ambulatory HALLE Ornelas HENRY Not Available Start: 05-22-2025 End: 05-22-2025 [employer]inis[employer] Result Encounter Monika Anna MANAGER DIABETES Work Phone: [facility] External Department Unsolicited Start: 05-22-2025 End: 05-22-2025 [employer] Result Encounter Monika Anna MANAGER DIABETES Work Phone: [facility] External Department Unsolicited Start: 05-21-2025 End: 05-21-2025 Orders Only Monika Castillo MANAGER DIABETES Work Phone: [facility] Comment on above: Right foot pain (Luzmaria matti Dx); Acute right ankle pain Start: 05-06-2025 End: 05-06-2025 [employer] Result Encounter Monika Anna MANAGER DIABETES Work Phone: [facility] External Department Unsolicited Start: 05-06-2025 End: 05-06-2025 Clinis[employer] Result Encounter Monika Anna MANAGER DIABETES Work Phone: [facility] External Department Unsolicited Start: 03-22-2025 End: 03-22-2025 Clinisync Result Encounter Monika Aichlingz MANAGER DIABETES Work Phone: [facility] External Department Unsolicited Start: 03-22-2025 End: 03-22-2025 Clinisync Result Encounter Monika Aichholbruna MANAGER DIABETES Work Phone: [facility] External Department Unsolicited Start: 03-12-2025 End: 03-12-2025 Office outpatient visit 25 minutes Monika Castillo MANAGER DIABETES Work Phone: [facility] Comment on above: Anxiety and depressi on ([facility]/HCC) (Primary Dx); Class 1 obesity due to excess calories with serious comorbidity and body mass index (BMI) of 31.0 to 31.9 in adult; Hypothyroidism, unspecified type ([facility]); Encounter for screening mammogram for malignant neoplasm of breast; Primary hypertension ([facility]); Type 2 diabetes mellitus with other circulatory complications; Vitamin D deficiency Start: 03-12-2025 End: 03-12-2025 ambulatory MONIKA AICHHOLZ Not Available Start: 01-26-2025 End: 01-27-2025 Refill Monika Aichholz MANAGER DIABETES Work Phone: [facility] Comment on above: Primary hypertension ([facility]) Start: 12-26-2024 End: 12-26-2024 Office outpatient visit 25 minutes Halle Figueroa DO Work Phone: [facility] 230 Comment on above: 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) ([facility]) ([facility]) (Primary Dx); Type 2 diabetes mellitus with other circulatory complications ([facility]); detention (current) use of insulin ([facility]) Start: 12-26-2024 End: 12-26-2024 ambulatory HALLE FIGUEROA Not Available Start: 12-11-2024 End: 12-11-2024 Refill Monika Aichholz MANAGER DIABETES Work Phone: [facility] Comment on above: Vitamin D deficiency Start: 12-06-2024 End: 12-06-2024 Refill Monika Aichholz MANAGER DIABETES Work Phone: [facility] Comment on above: Vitamin D deficiency Start: 11-20-2024 End: 11-20-2024 Office outpatient new 45 minutes Mary Kay Womack MANAGER DIABETES Work Phone: [facility] Comment on above: Impingement of left shoulder (Primary Dx); Left shoulder pain, unspecified chronicity; Arthritis of left acromioclavicular joint Start: 11-20-2024 End: 11-20-2024 ambulatory MARY KAY WOMACK Not Available Start: 11-20-2024 End: 11-20-2024 Bamboo flowsheet Mary Kay Womack MANAGER DIABETES Work Phone: [facility] Start: 11-20-2024 End: 11-20-2024 Bamboo flowsheet Mary Kay Womack MANAGER DIABETES Work Phone: [facility] Start: 11-13-2024 End: 11-13-2024 Clinisync Result Encounter Monika Anna MANAGER DIABETES Work Phone: [facility] External Department Unsolicited Start: 11-13-2024 End: 11-13-2024 Clinisync Result Encounter Monika Anna MANAGER DIABETES Work Phone: [facility] External Department Unsolicited Start: 11-13-2024 End: 11-13-2024 Refill Monika Anna MANAGER DIABETES Work Phone: [facility] Comment on above: Vitamin D deficiency (Primary Dx) Start: 11-08-2024 End: 11-08-2024 Orders Only Monika Castillo MANAGER DIABETES Work Phone: [facility] Comment on above: Hypocalcemia (Primar y Dx) Start: 11-07-2024 End: 11-07-2024 Clinisync Result Encounter Monika Anna MANAGER DIABETES Work Phone: [facility] External Department Unsolicited Start: 11-07-2024 End: 11-07-2024 Clinisync Result Encounter Monika Anna MANAGER DIABETES Work Phone: [facility] External Department Unsolicited Start: 10-24-2024 End: 10-24-2024 Office outpatient visit 25 minutes Monika Castillo MANAGER DIABETES Work Phone: [facility] Comment on above: Primary hypertension (CMS/HCC) (Primary Dx); 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/HCC); 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); Other specified diabetes mellitus without complications (CMS/HCC); 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); Anxiety and depression (CMS/HCC); Hypothyroidism, unspecified type (CMS/HCC); Pericardial effusion; Cerebrovascular accident (CVA), unspecified mechanism ([facility]); Chronic left shoulder pain Start: 10-24-2024 End: 10-24-2024 ambulatory MONIKA DEMARFlacoRICHARD Not Available Start: 10-24-2024 End: 10-24-2024 Bamboo flowsheet Monika Garciarichard MANAGER DIABETES Work Phone: [facility] Start: 10-24-2024 End: 10-24-2024 Bamboo flowsheet Monika Garciarichard MANAGER DIABETES Work Phone: [facility] Start: 08-23-2024 End: 08-23-2024 Office outpatient visit 25 minutes Halle Figueroa DO Work Phone: [facility] 230 Comment on above: 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) ([facility]) ([facility]) (Primary Dx); Type 2 diabetes mellitus with other circulatory complications ([facility]); Long-term insulin use ([facility]) Start: 08-23-2024 End: 08-23-2024 ambulatory HALLE FIGUEROA Not Available Start: 05-08-2024 Patient encounter procedure Al tanvi Muñozkamarijaniya DO Work Phone: [facility] Start: 01-25-2024 End: 01-25-2024 ambulatory [place] Work Phone: Start: 01-25-2024 End: 01-25-2024 Patient encounter procedure [facility] Work Phone: Start: 01-01-2024 Non-patient / Non-visit [facility] Work Phone: Start: 11-02-2023 End: 11-02-2023 ambulatory Cordell Masters Other [employer] Other Start: 11-02-2023 Telephone encounter Cordell Masters [facility] Start: 10-05-2023 End: 10-05-2023 ambulatory Cordell Masters Other [employer] Other Start: 10-05-2023 Telephone encounter Cordell Masters [facility] Start: 09-26-2023 End: 09-26-2023 ambulatory Cordell Masters Other [employer] Other Start: 09-26-2023 Office outpatient vi sit 15 minutes Cordell Masters [facility] Start: 08-18-2023 End: 08-21-2023 ambulatory [facility]AL [facility] Start: 08-17-2023 End: 08-20-2023 ambulatory GEOFF RANDAL [facility] Start: 08-02-2023 End: 08-02-2023 ambulatory Cordell Masters Other [employer] Other Start: 08-02-2023 Telephone encounter Cordell Masters [facility] Start: 07-13-2023 End: 07-13-2023 ambulatory Cordell Masters Other [employer] Other Start: 07-13-2023 Telephone encounter Cordell Masters [facility] Start: 03-14-2023 End: 03-14-2023 ambulatory Cordell Masters Other [employer] Other Start: 03-14-2023 Telephone encounter Cordell Masters [facility] Start: 03-10-2023 End: 03-11-[address] CORDELL MASTERS Facility:[facility] Start: 04-13-2022 Encounter for genera l adult medical examination without abnormal findings DR CORDELL MASTERS [facility] Start: 04-08-2022 End: 04-09-[address] CORDELL MASTERS Facility:[facility] Start: 04-08-2022 End: 04-09-2022 Encounter for general adult medical examination without abnormal findings DR CORDELL MASTERS Facility:[facility] Start: 10-24-2019 End: 10-25-2019 Patient encounter procedure POORNIMA [facility] Start: 10-24-2019 End: 10-24-2019 Subsequent hospital visit by physician Cordell Masters MD Work Phone: [facility] Comment on above: Coxsackie virus infe ction Start: 10-21-2019 End: 10-23-2019 Subsequent hospital visit by physician Pam Ballard [facility] Comment on above: Pleural effusion on left Start: 09-18-2019 End: 09-18-2019 Subsequent hospital visit by physician Cordell Masters [facility] Comment on above: Coxsackie virus infe ction Start: 09-06-2019 End: 09-08-2019 Subsequent hospital visit by physician Cordell Masters [facility] Start: 09-04-2019 End: 09-05-2019 Patient encounter procedure MANOLO CONKLIN [facility] Start: 09-04-2019 End: 09-04-2019 Subsequent hospital visit by physician Stberenice Echo Rm 428 [facility] Comment on above: S/P pericardial wind ow creation; Pericardial effusion Start: 08-13-2019 End: 08-24-2019 Evaluation and management of inpatient BHARAT ARMANDO [facility] Procedures Date Procedure Procedure Detail Performing Clinician Start: 05-29-2025 Hemoglobin glycosylated a1c Halle Figueroa DO Work Phone: Start: 05-22-2025 XR ANKLE RT MIN 3V Monika Castillo MANAGER DIABETES Work Phone: Start: 05-22-2025 XR FOOT RT MIN 3V Monika Castillo MANAGER DIABETES Work Phone: Start: 05-06-2025 MM TOMOSYNTHESIS SCR EENING BI Monika Castillo MANAGER DIABETES Work Phone: Start: 05-06-2025 Mammography Monika Cristine schaefer MANAGER DIABETES Work Phone: Start: 03-22-2025 [facility] VITAMIN D 25 [place] Brandi Castillo MANAGER DIABETES Work Phone: Start: 12-26-2024 Hemoglobin glycosylated a1c Halle Ornelas Henry DO Work Phone: Start: 11-20-2024 Arthrocentesis aspir &/inj major jt/bursa w/us Mary Kay T Teri MANAGER DIABETES Work Phone: Start: 11-20-2024 Radex shoulder compl ete minimum 2 views Mary Kay Womack MANAGER DIABETES Work Phone: Start: 11-13-2024 TBH VITAMIN D 25 [place] Lis jenny Anna MANAGER DIABETES Work Phone: Start: 11-07-2024 ALL CBC WITH AUTO DIFF Monika Anna MANAGER DIABETES Work Phone: Start: 08-23-2024 Hemoglobin glycosylated a1c Halle Muñozznick DO Work Phone: Start: 04-04-2024 Colonoscopy Halle devi DO Work Phone: Start: 04-04-2024 Mammography Halle Patel tzjohn DO Work Phone: Start: 10-24-[address] [facility] Start: 10-21-2019 Radiologic exam ches t 2 views Juanjo Coates MD Work Phone: Start: 09-04-2019 Echo transthorc r-t 2d w/wo m-mode rec f-up/lmtd [facility]AT [facility] Start: 09-04-2019 ECHOCARDIOGRAM LIMITED [place] Ornelas Óscar Work Phone: Start: 08-24-2019 Gluc bld gluc mntr d ev cleared fda spec home use [facility]AT [facility] Start: 08-24-2019 ACAPELLA BHARAT RE DEJAH Start: 08-24-2019 Assay of magnesium STEP HEN [...] BH[facility]AT [facility] Start: 08-24-2019 ACAPELLA BHARAT RE DEJAH Start: 08-24-2019 INCENTIVE SPIROMETRY RT [facility]AT RE[facility] Start: 08-24-2019 ACAPELLA BHARAT RE INECK Start: 08-24-2019 INCENTIVE SPIROMETRY RT [facility]AT [facility] Start: 08-24-2019 DISCHARGE PATIENT IMELDA EN REINECK Start: 08-24-2019 ACAPELLA BHARAT RE INECK Start: 08-24-2019 INCENTIVE SPIROMETRY RT [facility] Start: 08-24-2019 Glucose blood reagent strip BH[facility]AT RE[facility]ECK Start: 08-24-2019 ACAPERADHA NICHOLSON RE KRZYSZTOFCK Start: 08-24-2019 INCENTIVE SPIROMETRY RT BHARAT REINECK Start: 08-24-2019 Gluc bld gluc mntr d ev cleared fda spec home use BHARAT REINECK Start: 08-24-2019 Radiologic exam ches t single view BHARAT REINECK Start: 08-24-2019 ACAPESCARLETTA BHARAT RE INECK Start: 08-24-2019 INCENTIVE SPIROMETRY RT [facility] Start: 08-24-2019 INITIATE OXYGEN THER APY PROTOCOL BHARAT RE[facility]ECK Start: 08-24-[address] [facility] Start: 08-24-2019 Glucose blood reagent strip BHARAT REINECK Start: 08-24-2019 ACABELINDA BHARAT GOLDMAN KRZYSZTOFCK Start: 08-24-2019 INCENTIVE SPIROMETRY RT BHARAT REINECK [...] blood reagent strip BHARAT RE[facility]EC[facility] Start: 08-23-2019 ACAPERADHA BHARAT RE KRZYSZTOFCK Start: 08-23-2019 INCENTIVE SPIROMETRY RT BHARAT REINECK [...] src gram/gi emsa stain bct fungi/cell BH[facility]AT [facility] Start: 08-23-2019 Cell count misc body fluids w/differential count [facility] Start: 08-23-2019 Glucose body fluid o ther than blood [facility]AT [facility] Start: 08-23-2019 Lactate dehydrogenase ldh [facility]AT [facility] Start: 08-23-2019 Ph body fluid not el sewhere specified BHARAT RE[facility]ECK Start: 08-23-2019 Protein total xcpt refractometry oth src BHARAT REINECK Start: 08-23-2019 ACAPELLA BHARAT POND Start: 08-23-2019 INCENTIVE SPIROMETRY RT BH[facility]AT REINECK Start: 08-23-2019 Glucose blood reagent strip BHARAT REINECK Start: 08-23-2019 ACAPELLA BHARATSKYLAR POND Start: 08-23-2019 INCENTIVE SPIROMETRY RT [facility]AT [facility] Start: 08-23-2019 DIETARY NUTRITION SUPPLEMENTS BHARAT REINECK Start: 08-23-2019 Antinuclear antibodies lois [facility] Start: 08-23-2019 ACAPELLA BHARAT POND Start: 08-23-2019 INCENTIVE SPIROMETRY RT [facility]AT RE[facility]EC[facility] Start: 08-23-2019 Thoracentesis needle /cath pleura w/imaging [facility] Start: 08-23-2019 ACAPELLA BHARAT RE DEJAH Start: 08-23-2019 INCENTIVE SPIROMETRY RT [facility] Start: 08-23-2019 Antinuclear antibodies lois [facility] Start: 08-23-2019 C-reactive protein STEP SKYLAR REINECK Start: 08-23-2019 Cyclic citrullinated peptide antibody BH[facility]AT RE[facility]K Start: 08-23-2019 Hepatic function panel BHARAT REINECK Start: 08-23-2019 Lactate dehydrogenase ldh BHARAT REINECK Start: 08-23-2019 Glucose blood reagent strip BHARAT REINECK Start: 08-23-2019 ACAPELLA BHARAT RE INECK Start: 08-23-2019 INCENTIVE SPIROMETRY RT BHARAT REINECK Start: 08-23-2019 Radiologic exam ches t 2 views BHARAT REINECK Start: 08-23-2019 Gluc bld gluc mntr d ev cleared fda spec home use BHARAT REINECK Start: 08-23-2019 ACAPELLA BHARAT RE INECK Start: 08-23-2019 INCENTIVE SPIROMETRY RT [facility]AT RE[facility]ECK Start: 08-23-[address] [facility] Start: 08-23-2019 INITIATE OXYGEN THER APY PROTOCOL [facility]AT [facility] Start: 08-23-2019 Glucose blood reagent strip BHARAT REINECK Start: 08-23-2019 ACAPELLA BHARAT RE [...] serum plasma/whole blood [facility] Start: 08-22-2019 ACABELINDA POND Start: 08-22-2019 INCENTIVE SPIROMETRY RT [facility] Start: 08-22-2019 Glucose blood reagent strip BHARAT REINECK Start: 08-22-[address] [facility] Start: 08-22-2019 ACAFELIPASCARLETTJenny POND Start: 08-22-2019 INCENTIVE SPIROMETRY RT BHARAT [...] partial plasma/whole blood BHARAT REINEC[facility] Start: 08-22-2019 ACAPELLA BHARAT PNOD Start: 08-22-2019 INCENTIVE SPIROMETRY RT [facility]EC[facility] Start: 08-22-2019 Gluc bld gluc mntr d ev cleared fda spec home use BHARAT REINECK Start: 08-22-2019 DAILY WEIGHTS BHARAT JOHNSON Start: 08-22-2019 INTAKE AND OUTPUT IMELDA EN REINECK Start: 08-22-2019 Gluc bld gluc mntr d ev cleared fda spec home use BHARAT REINECK Start: 08-22-2019 ZENAIDA POND Start: 08-22-2019 INCENTIVE SPIROMETRY RT [facility]AT [facility]EC[facility] Start: 08-21-2019 Glucose blood reagent strip BHARAT REINECK Start: 08-21-2019 ZENAIDA POND Start: 08-21-2019 INCENTIVE SPIROMETRY RT BH[facility]AT RE[facility]ECK Start: 08-21-2019 Gluc bld gluc mntr d ev cleared fda spec home use BHARAT REINECK Start: 08-21-2019 ZENAIDA POND Start: 08-21-2019 INCENTIVE SPIROMETRY RT [facility]AT REINECK Start: 08-21-2019 Radiologic exam ches t single view BHARAT REINECK Start: 08-21-2019 Glucose blood reagent strip BHARAT REINECK Start: 08-21-2019 ZENAIDA POND Start: 08-21-2019 INCENTIVE SPIROMETRY RT [facility]AT REINECK Start: 08-21-2019 ZENAIDA POND Start: 08-21-2019 INCENTIVE SPIROMETRY RT [facility] Start: 08-21-2019 Level iv surg pathol ogy gross&microscopic exam [facility]AT REINEC[facility] Start: 08-21-2019 ZENAIDA POND Start: 08-21-2019 INCENTIVE SPIROMETRY RT BHARAT REINECK [...] AND TREAT IMELDA EN REINECK Start: 08-21-2019 ACAPELLJenny POND Start: 08-21-2019 ADVANCE DIET TOLE RATED (NURSING COMMUNICATION) BHARAT REINECK Start: 08-21-2019 AMBULATE PATIENT STEPHE N REINECK Start: 08-21-2019 CHEST TUBE TO CONTIN UOUS SUCTION BHARAT REINECK Start: 08-21-2019 ELEVATE HOB BHARAT POND Start: 08-21-2019 ENCOURAGE DEEP BREAT TREVOR AND COUGHING BHARAT REINECK Start: 08-21-2019 FULL CODE BHARAT POND Start: 08-21-2019 INCENTIVE SPIROMETRY RT BHARAT REINECK Start: 08-21-2019 INTAKE AND OUTPUT IMELDA EN REINECK Start: 08-21-2019 NOTIFY PHYSICIAN (SPECIFY) BHARAT REINECK Start: 08-21-2019 NURSING COMMUNICATION S DOMONIQUE REINECK Start: 08-21-2019 TUBE SITE CARE BHARAT REINECK Start: 08-21-2019 VITAL SIGNS BHARAT POND Start: 08-21-2019 WOUND CARE BHARAT GOLDMAN INEEHTAN Start: 08-21-2019 Gluc bld gluc mntr d [...] BHARAT REINECK Start: 08-19-[address] [facility] Start: 08-19-2019 Glucose blood reagent strip [...] REINECK Start: 08-14-2019 Assay of magnesium STEP SKYLAR REINECK Start: 08-14-2019 Assay of phosphorus inorganic [...] strip BHARAT REINECK Start: 08-13-2019 TRANSFER PATIENT STEPSAGRARIO N REINECK Start: 08-13-2019 Glucose blood reagent [...] BHARAT REINECK Start: 08-13-2019 DAILY WEIGHTS BHARAT Martini ELIZABETH Start: 08-13-2019 INTAKE AND OUTPUT IMELDA EN REINECK Start: 08-13-2019 Gluc bld gluc mntr d ev cleared fda spec home use BHARAT OTOOLEECK Start: 08-13-2019 Assay of troponin quantitative BHARAT REINECK Start: 08-13-2019 Basic metabolic pane l calcium total BHARAT REINECK Start: 08-13-2019 Blood count complete auto&auto difrntl wbc BHARAT REINECK Start: 08-13-2019 C-reactive protein JEANETH CHENG REINECK Start: 08-13-2019 Sedimentation rate r bc [...] 04-04-2034 Screening for malignant neoplasm of colon [facility] Start: 05-06-2026 Screening for malignant neoplasm of breast Mammogram [facility] Start: 11-27-2025 End: 11-27-2025 Patient encounter procedure 11/27/2025 9:45 AM EST Office Visit [facility] [address] [place] [address] Halle Figueroa DO [address] [place] [address] [facility] 230 Start: 08-29-2025 Hemoglobin A1c measurement Diabetes: Hemoglobin A1C [facility] Start: 07-16-2025 Glaucoma screening Diabetes: Retinopathy Screening [facility] Start: 05-29-2025 End: 05-29-2025 Patient encounter procedure 05/29/2025 9:45 AM EDT Office Visit [facility] [address] [place] [phone] Halle Figueroa, DO [address] [place] [address] [facility] 230 Start: 05-21-2025 End: 05-21-2026 XR Ankle - right 3 Views XR ankle 3+ views right Imaging Routine Acute right ankle pain Expected: 05/21/2025, Expires: 05/21/2026 [facility] Comment on above: Expected: 05/21/2025, Expires: Start: 05-21-2025 End: 05-21-2026 XR Foot - right 3 Views XR foot 3+ views right Imaging Routine Right foot pain Expected: 05/21/2025, Expires: 05/21/2026 [facility] Work Phone: Comment on above: Expected: 05/21/2025, Expires: Start: 05-15-2025 End: 05-15-2025 Patient encounter procedure 05/15/2025 10:30 AM EDT Office Visit [facility] [address] [place] [phone] Halle Figueroa, DO [address] [place] [address] [facility] 230 Start: 05-08-2025 Medicare Annual Wellness (AWV) Medicare Annual Wellness (AWV) [facility] Start: 05-01-2025 End: 05-01-2025 Patient encounter procedure 05/01/2025 10:30 AM EDT Office Visit [facility] [address] [place] [phone] ToniHalle allred, DO [address] [place] [address] [facility] 230 Start: 04-24-2025 End: 04-24-2025 Patient encounter procedure 04/24/2025 10:00 AM EDT [facility] [address] [place] [phone] Monika Castillo, FABIOLA [address] [place] [phone] [facility] Start: 04-12-2025 End: 05-12-2026 MG Breast - bilateral Screening Bilateral screening mammogram Imaging Routine Encounter for screening mammogram for malignant neoplasm of breast Expected: 04/12/2025 (Approximate), Expires: 05/12/2026 [facility] Work Phone: Comment on above: Expected: 04/12/2025 (Approximate), Expi res: 05/12/2026 Start: 04-06-2025 Urine screening for protein Diabetes: Urine Protein Screening [facility] Start: 04-04-2025 Screening for malignant neoplasm of breast Mammogram [facility] Start: 03-28-2025 Hemoglobin A1c measurement Diabetes: Hemoglobin A1C [facility] Start: 03-12-2025 End: 03-12-2026 25-hydroxyvitamin D3 [Mass/volume] in Serum or Plasma Vitamin D 25 hydroxy Lab Routine Vitamin D deficiency Expected: 03/12/2025 (Approximate), Expires: 03/12/2026 [facility] Comment on above: Expected: 03/12/2025 (Approximate), Expi res: 03/12/2026 Start: 02-05-2025 End: 02-05-2025 Patient encounter procedure 02/05/2025 2:20 PM EDT Office Visit [facility] [address] [place] [phone] Monika Castillo NP [address] [place] [address] [facility] Start: 01-22-2025 End: 01-22-2025 Patient encounter procedure 01/22/2025 1:00 PM EDT Office Visit [facility] [address] [place] [address] Monika Castillo, FABIOLA [address] [place] [address] [facility] Start: 12-19-2024 End: 12-19-2024 Patient encounter procedure 12/19/2024 11:15 AM EST Office Visit [facility] [address] [place] [phone] Halle Figueroa DO [address] [place] [address] [facility] 230 Start: 12-11-2024 End: 12-11-2024 Patient encounter procedure 12/11/2024 2:45 PM EST Office Visit [facility] [address] [place] [phone] Mary Kay Womack, MANAGER DIABETES [address] [place] [address] [facility] Start: 11-23-2024 Hemoglobin A1c measurement Diabetes: Hemoglobin A1C [facility] Start: 11-20-2024 End: 11-20-2024 Patient encounter procedure [facility] Comment on above: Left shoulder pain, unspecified chronici ty Start: 11-08-2024 End: 11-08-2025 25-hydroxyvitamin D3 [Mass/volume] in Serum or Plasma Vitamin D 25 hydroxy Lab Routine Hypocalcemia Expected: 11/08/2024 (Approximate), Expires: 11/08/2025 [facility] Work Phone: Comment on above: Expected: 11/08/2024 (Approximate), Expi res: 11/08/2025 Start: 10-24-2024 End: 10-24-2024 Patient encounter procedure 10/24/2024 2:40 PM EST Office Visit [facility] [address] [place] [address] Monika Castillo NP [address] [place] [address] Primary hypertension (CMS/HCC) (Primary Dx); 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/HCC); 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); Other specified diabetes mellitus without complications (CMS/HCC); 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); Anxiety and depression (CMS/HCC) [facility] Comment on above: Primary hypertension (CMS/HCC) (Primary Dx); 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/HCC); 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); Other specified diabetes mellitus without complications (CMS/HCC); 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); Anxiety and depression (CMS/HCC) Start: 10-24-2024 End: 10-24-2025 Basic metabolic 1998 panel - Serum or Plasma Basic metabolic panel Lab Routine 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/HCC) Expected: 10/24/2024 (Approximate), Expires: 10/24/2025 [facility] Comment on above: Expected: 10/24/2024 (Approximate), Expi res: 10/24/2025 Start: 10-24-2024 End: 10-24-2025 CBC W Auto Differential panel - Blood CBC and differential Lab Routine Cerebrovascular accident (CVA), unspecified mechanism (CMS/HCC) Expected: 10/24/2024 (Approximate), Expires: 10/24/2025 [facility] Comment on above: Expected: 10/24/2024 (Approximate), Expi res: 10/24/2025 Start: 10-24-2024 End: 10-24-2025 Thyrotropin [Units/volume] in Serum or Plasma TSH Lab Routine Hypothyroidism, unspecified type (CMS/HCC) Expected: 10/24/2024 (Approximate), Expires: 10/24/2025 [facility] Work Phone: Comment on above: Expected: 10/24/2024 (Approximate), Expi res: 10/24/2025 Start: 10-24-2024 End: 10-24-2025 Thyroxine (T4) free [Mass/volume] in Serum or Plasma T4, free Lab Routine Hypothyroidism, unspecified type (CMS/HCC) Expected: 10/24/2024 (Approximate), Expires: 10/24/2025 [facility] Comment on above: Expected: 10/24/2024 (Approximate), Expi res: 10/24/2025 Start: 01-25-2024 Patient referral [place] Work Phone: Start: 08-19-2020 A1C test (Diabetic or Prediabetic) A1C test (Diabetic or Prediabetic) [place], [place] Start: 08-13-2020 TSH testing TSH testing [place] Start: 01-16-2020 End: 01-16-2020 Patient encounter procedure 01/16/2020 Office Visit Infectious Diseases Chris Russo MD [address] [facility] [place] [address] [facility] Start: 11-21-2019 End: 11-21-2019 Patient encounter procedure 11/21/2019 Office Visit Pulmonology Juanjo Coates MD [address] [facility] [address] [place] [address] [facility] Start: 10-24-2019 End: 10-24-2019 Office Visit [facility] Comment on above: Acute bloody pericarditis (Primary Dx); Coxsackie virus infection; Pneumonia of left lower lobe due to infectious organism (HCC); Pleural effusion on left; Type 2 diabetes mellitus without complication, without long-term current use of insulin (HCC) Start: 09-26-2019 End: 09-26-2019 Office Visit 09/26/2019 Office Visit Pulmonology Juanjo Coates MD [address] [facility] [address] [place] [address] [phone] Specialist Outreach Shahzad Start: 06-16-2019 Influenza vaccination Flu vaccine (#1) [place], [place] Start: 2006 Breast cancer screen Breast cancer screen [place] Start: 2006 Colon cancer screen colonoscopy Colon cancer screen colonoscopy [place] Start: 2006 Shingles Vaccine (1 of 2) Shingles Vaccine (1 of 2) [place], [place] Start: 1977 Cervical cancer screen Cervical cancer screen [place] Start: 1974 Diabetic microalbuminuria test Diabetic microalbuminuria test [place] Start: 1971 HIV screen HIV screen [place] Start: 1967 DTaP/Tdap/Td vaccine (1 - Tdap) DTaP/Tdap/Td vaccine (1 - Tdap) [place] Start: 1966 [object Object] Diabetic foot exam [place] Start: 1966 Diabetic retinal exam Diabetic retinal exam [place], [place] Start: 1966 Lipid screen Lipid screen [place] Start: 1962 Pneumococcal 0-64 years Vaccine (1 of 1 - PPSV23) Pneumococcal 0-64 years Vaccine (1 of 1 - PPSV23) [place], [place] Start: 1956 Hepatitis C screen Hepatitis C screen [place], [place] Start: 1956 Screening for malignant neoplasm of colon [facility] End: 09-18-2019 Coxsackie B Virus Abs Coxsackie B Virus Abs Lab Routine Coxsackie virus infection 1 Occurrences starting 09/18/2019 until 09/18/2019 [place], [place] Comment on above: 1 Occurrences starting 09/18/2019 until 09/18/2019 Coxsackie B Virus Abs [place], [place] End: 10-24-2019 Coxsackie B Virus Abs Coxsackie B Virus Abs Lab Routine Coxsackie virus infection 1 Occurrences starting 10/24/2019 until 10/24/2019 [facility] Work Phone: Comment on above: 1 Occurrences starting 10/24/2019 until 10/24/2019 Patient referral [facility] Work Phone: Payers Date Payer Category Payer Private Health Insurance [employer] [id number] 2021 Medicare MEDICARE [id number] 2018 Unknown CARESODEEPA CARLENESamaria [facility] xxxxxxxxxxx 2018-Present [phone] [address] [place] [address] xxxxxxxxxxx [id number] 2018 Unknown [id number] 1959 Medicare [id number] 1959 Unknown [id number] 1955 Unknown [id number] 2.16.840.1.421032.3.579.2. 175 1956 Unknown [id number] 2.16.840.1.457054.3.579.2. 175 1956 Unknown [id number] 2.16.840.1.565412.3.579.2. 175 1956 Unknown [id number] 2.16.840.1.549526.3.579.2. 593 1956 Unknown [id number] 2.16.840.1.057612.3.579.2. 593 1956 Unknown [id number] 2.16.840.1.085621.3.579.2. 173 1956 Unknown [id number] 2.16.840.1.511581.3.579.2. 173 1956 Unknown [id number] 2.16.840.1.022278.3.579.2. 173 1956 Unknown [id number] 2.16.840.1.897300.3.579.2. 173 1956 Unknown [id number] 2.16.840.1.066510.3.579.2. 173 1956 Unknown [id number] 2.16.840.1.076865.3.579.2. 1259 1956 Unknown [id number] 2.16.840.1.337595.3.579.2. 1259 1956 Unknown [id number] 2.16.840.1.136862.3.579.2. 1259 1956 Unknown [id number] 2.16.840.1.530653.3.579.2. 1259 1956 Unknown [id number] 2.16.840.1.835238.3.579.2. 125 1956 Unknown [id number] 2.16.840.1.627370.3.579.2. 1259 1956 Unknown [id number] 2.16.840.1.847232.3.579.2. 1259 Social History Date Type Detail Facility Start: 09-04-2019 End: 03-14-2024 [facility] Start: 09-04-2019 End: 05-29-2025 [facility] Start: 1955 [facility] Start: 05-20-2024 End: 05-29-2025 Sex Assigned At [facility] Start: 1955 Sex Assigned At Female F [facility] Start: 03-14-2024 Tobacco use and exposure Smokeless tobacco non-user [facility] Start: 08-23-2024 End: 11-20-2024 Alcoholic beverage intake Current drinker of alcohol (finding) [facility] Start: 05-20-2024 End: 05-29-2025 History of Social function [facility] How [...] Gender identity Identifies as female gender (finding) [facility] Medical Equipment Procedure Code Equipment Code Equipment Origin al Text Equipment Identifier Dates Inject 1 each un sunday the skin Daily Start: 03-14-2024 Functional Status Date Assessment Result Facility 05-29-2025 Patient Health [facility] ionnaire 2 item (PHQ-2) [Reported] [facility] Clinical Notes 08-02-2023 to 05-29-2025 Halle Figueroa DO - 05/29/2025 10:11 AM Satya Figueroa DO - 05/29/2025 9:45 AM TANIYA HASSAN - 03/12/2025 3:20 PM Karyn Castillo NP - 03/12/2025 3:20 PM EDTPatient Instructions Note Date & Type Note Facility 05-29-2025 History of Presen t illness Narrative Associated Problem(s): Type 2 diabetes mellitus with other circulatory complications (HCC) During the appointment today all pertinent labs, [...] this. , Will stay on current medications. Images from the original note were not included. Tanya Blake is a 69 y.o. female presents with chief complaint of Diabetes HPI: Diabetes Mellitus Follow-up: Tanya Blake is here for follow-up evaluation of diabetes mellitus. The initial diagnosis of diabetes was made around 2020 Complications include: none She has been checking her blood glucose 2-3 times a week. Last A1c: 6.9 (12/26/24) Eye exam: 2022 [facility] Current concerns include: BG levels: Has been better. Was running 150-160. Last few days have been around 135 Forgot meter Diet: watching carbs and portions sizes- not lately d/t being to cook outs, graduation parties. 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) Acute bloody pericarditis (HHS-HCC) Coxsackie virus infection Pericardial effusion (HHS-HCC) Primary hypertension Anxiety and depression Encounter for screening mammogram for malignant neoplasm of breast CVA (cerebral vascular accident) ([facility]) Encounter for subsequent annual wellness visit (AWV) in Medicare patient Class 1 obesity due to excess calories in adult Chronic left shoulder pain detention (current) use of insulin (HCC) Other specified diabetes mellitus without complications (HCC) Hypocalcemia Vitamin D deficiency Right foot pain Acute right ankle pain Type 2 diabetes mellitus with stage 3a chronic kidney disease, with long-term current use of insulin (HCC) Social History Tobacco Use Smoking status: Never Smokeless tobacco: Never Vaping Use Vaping status: Never Used Substance Use Topics Alcohol use: Not Currently Comment: drinks caffine Drug use: Never No Known Allergies Synopsis [facility] 05/29/2025 03/12/2025 16:09 03/01/2025 00:00 Antidiabetic medications glipiZIDE 10 mg Daily PO 10 mg Daily PO 10 mg Daily PO Insulin Glargine 24 Units Nightly SC 24 Units Nightly SC 24 Units Nightly SC Semaglutide 0.5 mg q7 days SC (2 MG/3ML SOPN) Inject 0.5 mg under the skin every 7 (seven) days Inject 0.5 mg under the skin every 7 (seven) days Labs [facility] [place] HEMOGLOBIN A1C/HEMOGLOBIN.TOTAL:MFR:PT:BLD:QN: 6.9 Outpatient prescription Medication marked [...] Negative for polydipsia, polyphagia and polyuria. OBJECTIVE: 05/29/2025 9:37 AM 03/12/2025 4:18 PM 03/12/2025 3:38 PM Vitals BMI 32.75 kg/m2 33.44 kg/m2 Systolic 138 142 146 Diastolic 84 82 86 Heart Rate 71 81 Temp 97.9 F 98 F Resp 19 Height (in) 5' 4 Weight (lb) 190.8 194.8 Visit Report Report Report Report Physical Exam [...] 2 diabetes mellitus with other circulatory complications ([facility]) During the appointment today all pertinent labs, [...] they have any problems or questions. Tanya Ornelas Hayden is doing very well and encouraged on this. , Will stay on current medications. 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 Patient's Medications New Prescriptions No [...] 1 capsule (125 mcg) by mouth Daily ESCITALOPRAM (LEXAPRO) 20 MG TABLET Take 1 tablet (20 mg) by mouth Daily GLIPIZIDE (GLUCOTROL) 10 [...] the patient today. documented in this encounter [facility] 03-12-2025 History of Presen t illness Narrative [...] 1 for diabetes documented in this encounter [facility] 03-12-2025 Instructions Monika Castillo NP - 03/12/2025 3:20 PM EDT Increase escitalopram to 20mg documented in this encounter [facility] 12-26-2024 History of Presen t illness Narrative [...] Last A1c: 6.6 (08/23/24) Eye exam: 2022 [facility] Current concerns include: BG levels: 145-188 [...] autoimmune diabetes mellitus in adults) (HCC) (CMS/HCC) Acute bloody pericarditis Coxsackie virus infection Pericardial effusion Primary hypertension (CMS/HCC) Anxiety and depression (CMS/HCC) Encounter for screening mammogram for malignant neoplasm of breast CVA (cerebral vascular accident) ([facility]) Encounter for subsequent annual wellness visit (AWV) in Medicare patient Class 1 obesity due to excess calories in adult Chronic left shoulder pain detention (current) use of insulin ([facility]) Other specified diabetes mellitus without complications ([facility]) Hypocalcemia Vitamin D deficiency Social History Tobacco [...] the skin every 7 (seven) days Labs [facility] [place] HEMOGLOBIN A1C/HEMOGLOBIN.TOTAL:MFR:PT:BLD:QN: 6.9 Outpatient prescription Medication marked [...] 2 diabetes mellitus with other circulatory complications ([facility]) During the appointment today all pertinent labs, [...] (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 documented in this encounter [facility] 11-20-2024 History of Presen t illness Narrative [...] RANDOMLY SHAKE AT TIMES. 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 PAST MEDICAL HISTORY: Past Medical [...] bony process left shoulder. Mary Kay Womack DIRECTOR OF VENDOR MANAGEMENT-FACILITIES OPERATIONS TECHNICIAN L Inj/Asp: L subacromial bursa on 11/20/2024 [...] requiring urgent evaluation. documented in this encounter [facility] 11-13-2024 Telephone encount er Note Sent in script for vit d 3 [facility] 11-13-2024 Miscellaneous Notes Formattin g of this note might be different from the original. Sent in script for vit d 3 documented in this encounter [facility] 10-24-2024 History of Presen t illness Narrative [...] Problem List Items Addressed This Visit Hypothyroidism ([facility]) Is currently taking her levo, however is feeling more fatigue Will check labs to see where TSH stands also check CBC and chem 8 Relevant Medications levothyroxine (Synthroid, Levoxyl) 112 MCG tablet Other Relevant Orders TSH T4, free Type 2 diabetes mellitus with other circulatory complications ([facility]) Relevant Medications atorvastatin (Lipitor) 80 MG tablet Other Relevant Orders Basic metabolic panel 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 Continues with dr figueroa Current meds: ozempic, insulin, glipizide, statin Associated Problem(s): Primary hypertension ([facility] Please check blood pressure daily and record DASH diet Limit caffeine Take medication as directed Contact office if chest pain, pressure, dizziness, shortness of breath, swelling legs Recommend slow position changes Current meds: amlodipine, carvedilol, documented in this encounter [facility] 10-24-2024 Instructions Monika Castillo NP - 10/24/2024 2:40 PM EST Check thyroid lab to make sure thyroid is ok, Call ortho for appt documented in this encounter [facility] 08-23-2024 History of Presen t illness Narrative Associated Problem(s): Type 2 diabetes mellitus with other circulatory complications ([facility] During the appointment today all pertinent labs, [...] ALLERGIES: Patient Active Problem List Diagnosis Hypothyroidism ([facility]) Type 2 diabetes mellitus with other circulatory complications ([facility]) 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) ([facility]) ([facility]) Acute bloody pericarditis Coxsackie virus infection Pericardial effusion Primary hypertension ([facility]) URI, acute Anxiety and depression ([facility]) Encounter for screening mammogram for malignant neoplasm of breast CVA (cerebral vascular accident) ([facility]) Encounter for subsequent annual wellness visit (AWV) in Medicare patient Class 1 obesity due to excess calories in adult Chronic left shoulder pain Long-term insulin use ([facility]) Social History Tobacco Use Smoking status: Never [...] 2 diabetes mellitus with other circulatory complications ([facility]/HCC) During the appointment today all pertinent labs, [...] 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 documented in this encounter [facility] 11-02-2023 Evaluation note Encounter Date Diagnosis Assessment Notes Oct, Depression with anxiety (ICD-10 - F41.8) [employer] Other 12-12-2023 Evaluation note* Encounter Date Diagnosis Assessment Notes Treatment Notes Treatment Clinical Notes Sep, Bronchitis (ICD-10 - J40) discussed her hx of several episodes of pneumonia and her daughter's decreased immune system. No crackles or wheezing on exam. Will treat empirically before her symptoms worsen. If they do, she understands to call for CXR or go to ER. [employer] Other 10-18-2023 Evaluation note* Encounter Date Diagnosis Assessment Notes Treatment Notes Treatment Clinical Notes Jul, Depression with anxiety (ICD-10 - F41.8) [employer] Other Evaluation note* Diagnosis Pleural effusion on left Unspecified pleural effusion documented in this encounter [employer] Phone: [email or web address] note* Diagnosis Coxsackie virus infection Coxsackievirus infection in conditions classified elsewhere and of unspecified site documented in this encounter [employer] Phone: [email or web address] noteNo InformationNort [employer] Other Evaluation note* Diagnosis Onset Date Resolution Status Type II diabetes mellitus [facility] Work Phone: Evaluation note* Diagnosis Type 2 [...] insulin use (CMS/HCC) documented in this encounter [facility] HealthcareEvaluation note* Diagnosis Type 2 diabetes mellitus [...] diabetes mellitus with other circulatory complications (CMS/HCC) detention (current) use of insulin (CMS/HCC) Other specified diabetes mellitus without complications (CMS/HCC) 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) Anxiety and depression (CMS/HCC) Hypothyroidism, unspecified type (CMS/HCC) Pericardial effusion Unspecified disease of pericardium Cerebrovascular accident (CVA), unspecified mechanism (CMS/HCC) Chronic left shoulder pain Pain in joint, shoulder region documented in this encounter [facility] HealthcareEvaluation note* Diagnosis 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/HCC)- Primary 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) Anxiety and depression ([facility])- Primary Hypothyroidism, unspecified type ([facility]) Type 2 diabetes mellitus with other circulatory complications ([facility]) Primary hypertension ([facility]) Unspecified essential hypertension URI, acute Acute upper [...] 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) ([facility]) ([facility]) 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) ([facility]) ([facility])- Primary Type 2 diabetes mellitus with other circulatory complications ([facility]) Long-term insulin use ([facility]) Primary hypertension ([facility])- Primary Unspecified essential hypertension Type 2 diabetes mellitus with other circulatory complications ([facility]) 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 ([facility]) Other specified diabetes mellitus without complications ([facility]) 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) ([facility]) ([facility]) Anxiety and depression ([facility]) Hypothyroidism, unspecified type ([facility]) Pericardial effusion Unspecified disease of pericardium Cerebrovascular accident (CVA), unspecified mechanism ([facility]) Chronic left shoulder pain Pain in joint, shoulder region Hypocalcemia- Primary [facility] Diagnosis Type 2 diabetes mellitus with other circulatory complications ([facility]/HCC)- Primary 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) ([facility]) Anxiety and depression ([facility])- Primary Hypothyroidism, unspecified type ([facility]) Type 2 diabetes mellitus with other circulatory complications ([facility]) Primary hypertension ([facility]) Unspecified essential hypertension URI, acute Acute upper [...] diabetes mellitus with other circulatory complications (CMS/HCC) detention (current) use of insulin (CMS/HCC) Other specified diabetes mellitus without complications (CMS/HCC) 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) Anxiety and depression (CMS/HCC) Hypothyroidism, unspecified type (CMS/HCC) Pericardial effusion Unspecified disease of pericardium Cerebrovascular accident (CVA), unspecified mechanism (CMS/HCC) Chronic left shoulder pain Pain in joint, shoulder region Vitamin D deficiency- Primary documented in this encounter [facility] HealthcareEvaluation note* Diagnosis Type 2 diabetes mellitus [...] diabetes mellitus with other circulatory complications (CMS/HCC) detention (current) use of insulin (CMS/HCC) Other specified diabetes mellitus without complications (CMS/HCC) 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) Anxiety and depression (CMS/HCC) Hypothyroidism, unspecified type ([facility]/HCC) Pericardial effusion Unspecified disease of pericardium Cerebrovascular accident (CVA), unspecified mechanism ([facility]/HCC) Chronic left shoulder pain Pain in joint, shoulder region Impingement of left shoulder- Primary Left shoulder pain, unspecified chronicity Arthritis of left acromioclavicular joint documented in this encounter [facility] HealthcareEvaluation note* Diagnosis 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/HCC)- Primary 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) ([facility]) Anxiety and depression ([facility]/HCC)- Primary Hypothyroidism, unspecified type ([facility]/) Type 2 diabetes mellitus with other circulatory complications ([facility]/HCC) Primary hypertension ([facility]) Unspecified essential hypertension URI, acute Acute upper [...] (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) (HCC) ([facility]) 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) ([facility])- Primary 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/HCC) Long-term insulin use ([facility]/) Primary hypertension ([facility])- Primary Unspecified essential hypertension Type 2 diabetes mellitus with other circulatory complications ([facility]/HCC) 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 ([facility]/HCC) Other specified diabetes mellitus without complications (CMS/HCC) 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) ([facility]) Anxiety and depression ([facility]) Hypothyroidism, unspecified type ([facility]/HCC) Pericardial effusion Unspecified disease of pericardium Cerebrovascular accident (CVA), unspecified mechanism ([facility]/HCC) Chronic left shoulder pain Pain in joint, shoulder region Vitamin D deficiency documented in this encounter [facility] HealthcareEvaluation note* Diagnosis 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/HCC)- Primary 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) ([facility]) Anxiety and depression ([facility]/HCC)- Primary Hypothyroidism, unspecified type ([facility]/HCC) 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/HCC) Primary hypertension ([facility]/HCC) Unspecified essential hypertension URI, acute Acute [...] (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) (HCC) ([facility]) 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) ([facility])- Primary 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/HCC) Long-term insulin use ([facility]) Primary hypertension ([facility])- Primary Unspecified essential hypertension Type 2 diabetes mellitus with other circulatory complications ([facility]/HCC) detention (current) use of insulin ([facility]) Other specified diabetes mellitus without complications ([facility]) 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) ([facility]) Anxiety and depression ([facility]) Hypothyroidism, unspecified type ([facility]) Pericardial effusion Unspecified disease of pericardium Cerebrovascular accident (CVA), unspecified mechanism ([facility]) Chronic left shoulder pain Pain in joint, shoulder region Vitamin D deficiency documented in this encounter [facility] HealthcareEvaluation note* Diagnosis 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/HCC)- Primary 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) ([facility]) Anxiety and depression ([facility])- Primary Hypothyroidism, unspecified type ([facility]/HCC) Type 2 diabetes mellitus with other circulatory complications ([facility]/HCC) Primary hypertension ([facility]) Unspecified essential hypertension URI, acute Acute upper [...] (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) (HCC) ([facility]) 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) ([facility]) ([facility])- Primary Type 2 diabetes mellitus with other circulatory complications ([facility]/HCC) Long-term insulin use ([facility]) Primary hypertension ([facility]/HCC)- Primary Unspecified essential hypertension Type 2 diabetes mellitus with other circulatory complications ([facility]/HCC) 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 ([facility]) Other specified diabetes mellitus without complications ([facility]) 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) ([facility]) ([facility]) Anxiety and depression ([facility]) Hypothyroidism, unspecified type ([facility]) Pericardial effusion Unspecified disease of pericardium Cerebrovascular accident (CVA), unspecified mechanism ([facility]) Chronic left shoulder pain Pain in joint, shoulder region 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) ([facility]) ([facility])- Primary Type 2 diabetes mellitus with other circulatory complications ([facility]) 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 ([facility]) documented in this encounter [facility] HealthcareEvaluation note* Diagnosis Type 2 diabetes mellitus with other circulatory complications- Primary 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) ([facility]) Anxiety and depression ([facility])- Primary Hypothyroidism, unspecified type ([facility]) Type 2 diabetes mellitus with other circulatory complications Primary hypertension ([facility]) Unspecified essential hypertension URI, acute Acute upper [...] (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) (HCC) ([facility]) 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) ([facility])- Primary Type 2 diabetes mellitus with other circulatory complications Long-term insulin use ([facility]) Primary hypertension ([facility]/HCC)- Primary Unspecified essential hypertension Type 2 diabetes mellitus with other circulatory complications 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 ([facility]) Other specified diabetes mellitus without complications 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) ([facility]) Anxiety and depression ([facility]) Hypothyroidism, unspecified type ([facility]) Pericardial effusion Unspecified disease of pericardium Cerebrovascular accident (CVA), unspecified mechanism ([facility]) Chronic left shoulder pain Pain in joint, shoulder region 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) ([facility])- Primary Type 2 diabetes mellitus with other circulatory complications 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 ([facility]) Primary hypertension ([facility]) Unspecified essential hypertension documented in this encounter [facility] HealthcareEvaluation note* Diagnosis Type 2 diabetes mellitus with other circulatory complications- Primary 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) ([facility]) Anxiety and depression ([facility])- Primary Hypothyroidism, unspecified type ([facility]) Type 2 diabetes mellitus with other circulatory complications Primary hypertension ([facility]) Unspecified essential hypertension URI, acute Acute upper [...] 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) ([facility]) ([facility]) 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) ([facility]) ([facility])- Primary Type 2 diabetes mellitus with other circulatory complications Long-term insulin use ([facility]) Primary hypertension ([facility])- Primary Unspecified essential hypertension Type 2 diabetes mellitus with other circulatory complications 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 ([facility]) Other specified diabetes mellitus without complications 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) ([facility]) Anxiety and depression ([facility]) Hypothyroidism, unspecified type ([facility]) Pericardial effusion Unspecified disease of pericardium Cerebrovascular accident (CVA), unspecified mechanism ([facility]) Chronic left shoulder pain Pain in joint, shoulder region 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) ([facility])- Primary Type 2 diabetes mellitus with other circulatory complications detention (current) use of insulin ([facility]) Anxiety and depression ([facility])- Primary Class 1 obesity due to excess calories with serious comorbidity and body mass index (BMI) of 31.0 to 31.9 in adult Hypothyroidism, unspecified type ([facility]) Encounter for screening mammogram for malignant neoplasm of breast Primary hypertension ([facility]) Unspecified essential hypertension Type 2 diabetes mellitus with other circulatory complications Vitamin D deficiency documented in this encounter [facility] HealthcareEvaluation note* Diagnosis Type 2 diabetes mellitus with other circulatory complications (HCC)- Primary 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) Anxiety and depression- Primary Hypothyroidism, unspecified type Type 2 diabetes mellitus with other circulatory complications (HCC) Primary hypertension Unspecified essential hypertension URI, acute Acute upper respiratory infections of unspecified site Acute bloody pericarditis ([facility]) Unspecified acute pericarditis Encounter for subsequent annual wellness visit (AWV) in Medicare patient- Primary Class 1 obesity due to excess calories with serious comorbidity and body mass index (BMI) of 31.0 to 31.9 in adult Chronic left shoulder pain Pain in joint, shoulder region Type 2 diabetes mellitus with other circulatory complications (HCC) 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) 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)- Primary Type 2 diabetes mellitus with other circulatory complications (HCC) Long-term insulin use (HCC) Primary hypertension- Primary Unspecified essential hypertension Type 2 diabetes mellitus with other circulatory complications (HCC) 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 (HCC) Other specified diabetes mellitus without complications (HCC) 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) Anxiety and depression Hypothyroidism, unspecified type Pericardial effusion ([facility]) Unspecified disease of pericardium Cerebrovascular accident (CVA), unspecified mechanism (HCC) Chronic left shoulder pain Pain in joint, shoulder region 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)- Primary Type 2 diabetes mellitus with other circulatory complications (HCC) 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 (HCC) Anxiety and depression- Primary Class 1 obesity due to excess calories with serious comorbidity and body mass index (BMI) of 31.0 to 31.9 in adult Hypothyroidism, unspecified type Encounter for screening mammogram for malignant neoplasm of breast Primary hypertension Unspecified essential hypertension Type 2 diabetes mellitus with other circulatory complications (HCC) Vitamin D deficiency Right foot pain- Primary Pain in soft tissues of limb Acute right ankle pain documented in this encounter [facility] HealthcareEvaluation note* Diagnosis Type 2 diabetes mellitus with other circulatory complications (HCC)- Primary 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) Anxiety and depression- Primary Hypothyroidism, unspecified type Type 2 diabetes mellitus with other circulatory complications (HCC) Primary hypertension Unspecified essential hypertension URI, acute Acute upper respiratory infections of unspecified site Acute bloody pericarditis ([facility]CC) Unspecified acute pericarditis Encounter for subsequent annual wellness visit (AWV) in Medicare patient- Primary Class 1 obesity due to excess calories with serious comorbidity and body mass index (BMI) of 31.0 to 31.9 in adult Chronic left shoulder pain Pain in joint, shoulder region Type 2 diabetes mellitus with other circulatory complications (HCC) 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) 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)- Primary Type 2 diabetes mellitus with other circulatory complications (HCC) Long-term insulin use (HCC) Primary hypertension- Primary Unspecified essential hypertension Type 2 diabetes mellitus with other circulatory complications (HCC) detention (current) use of insulin (HCC) Other specified diabetes mellitus without complications (HCC) 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) Anxiety and depression Hypothyroidism, unspecified type Pericardial effusion ([facility]) Unspecified disease of pericardium Cerebrovascular accident (CVA), unspecified mechanism (HCC) Chronic left shoulder pain Pain in joint, shoulder region 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)- Primary Type 2 diabetes mellitus with other circulatory complications (HCC) detention (current) use of insulin (HCC) Anxiety and depression- Primary Class 1 obesity due to excess calories with serious comorbidity and body mass index (BMI) of 31.0 to 31.9 in adult Hypothyroidism, unspecified type Encounter for screening mammogram for malignant neoplasm of breast Primary hypertension Unspecified essential hypertension Type 2 diabetes mellitus with other circulatory complications (HCC) Vitamin D deficiency 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)- Primary Type 2 diabetes mellitus with other circulatory complications (HCC) detention (current) use of insulin (HCC) Type 2 diabetes mellitus with stage 3a chronic kidney disease, with long-term current use of insulin (HCC) documented in this encounter [facility] HealthcareEvaluation note* Diagnosis Type 2 diabetes mellitus with other circulatory complications (HCC)- Primary 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) Anxiety and depression- Primary Hypothyroidism, unspecified type Type 2 diabetes mellitus with other circulatory complications (HCC) Primary hypertension Unspecified essential hypertension URI, acute Acute upper respiratory infections of unspecified site Acute bloody pericarditis ([facility]CC) Unspecified acute pericarditis Encounter for subsequent annual wellness visit (AWV) in Medicare patient- Primary Class 1 obesity due to excess calories with serious comorbidity and body mass index (BMI) of 31.0 to 31.9 in adult Chronic left shoulder pain Pain in joint, shoulder region Type 2 diabetes mellitus with other circulatory complications (HCC) 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) 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)- Primary Type 2 diabetes mellitus with other circulatory complications (HCC) Long-term insulin use (HCC) Primary hypertension- Primary Unspecified essential hypertension Type 2 diabetes mellitus with other circulatory complications (HCC) 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 (HCC) Other specified diabetes mellitus without complications (HCC) 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) Anxiety and depression Hypothyroidism, unspecified type Pericardial effusion ([facility]) Unspecified disease of pericardium Cerebrovascular accident (CVA), unspecified mechanism (HCC) Chronic left shoulder pain Pain in joint, shoulder region 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)- Primary Type 2 diabetes mellitus with other circulatory complications (HCC) detention (current) use of insulin (HCC) Anxiety and depression- Primary Class 1 obesity due to excess calories with serious comorbidity and body mass index (BMI) of 31.0 to 31.9 in adult Hypothyroidism, unspecified type Encounter for screening mammogram for malignant neoplasm of breast Primary hypertension Unspecified essential hypertension Type 2 diabetes mellitus with other circulatory complications (HCC) Vitamin D deficiency 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)- Primary Type 2 diabetes mellitus with other circulatory complications (HCC) detention (current) use of insulin (HCC) Type 2 diabetes mellitus with stage 3a chronic kidney disease, with long-term current use of insulin (HCC) Right foot pain- Primary Pain in soft tissues of limb documented in this encounter [facility] general [...] FOOT SURGERY Hospitalization History SEE SURGICAL HX [facility] Other Hospital Discharge instructionsAmbulatory Orders* Referral to Diabetes Management Time Frame: 01/25/24, Location: None Selected [place] Work Phone: Assessments Diagnosis Coxsackie virus infection Coxsackievirus infection in conditions classified elsewhere and of unspecified site Diagnosis S/P pericardial window creation Pericardial effusion Unspecified disease of pericardium Advance Directives Documents on File Type Date Recorded 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 Expl 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 Advance Directives and Living Will 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 Jewel Setter Latest Code Status on File Code Status Date Activated Date Inactivated Comments Full Code 08/21/2019 9:02 AM 08/24/2019 9:24 PM Full Code 08/16/2019 8:23 AM 08/21/2019 9:01 AM Full Code 08/12/2019 10:41 PM 08/16/2019 8:23 AM Documents on File Type Date Recorded 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 Expl anation Advance Directives and Living Will Power of Jewel Setter Latest Code Status on File Code Status Date Activated Date Inactivated Comments Full Code 08/21/2019 9:02 AM 08/24/2019 9:24 PM Full Code 08/16/2019 8:23 AM 08/21/2019 9:01 AM Full Code 08/12/2019 10:41 PM 08/16/2019 8:23 AM Advance Directive Response Recorded Date/ Time Advance Directives No January 24, 024 10:20am Summary Purpose Family History Relationship Condition Age at Onset Recorded Date/T vega daughter Malignant neoplasm Unknown father Unknown Heart disease Unknown Not Specified Unknown Reason for Referral Status Reason Specialty Diagnoses / Procedures Re ferred By Contact Referred To Contact Closed Cardiology Diagnoses S/P pericardial window creation Pericardial effusion Procedures ECHO Limited 2-D ECHOCARDIOGRAM [facility] OR [facility] 2D ECHO WITHOUT CONTRAST - WITH DOP/COLOR FLOW Manolo Conklin PA [address] [place] [address] [place] [address] Chief Complaint and Reason for Visit Chief Complaint Amb Documentation BS discussion Reason for Visit Type II diabetes colten litus Additional Source Comments INFORMATION SOURCE (unrecogn ized section and content) DATE CREATED AUTHOR 11/02/2019 [facility] DATE CREATED AUTHOR AUTHOR'S ORGANIZ ATION 03/24/2023 [facility] DATE CREATED AUTHOR AUTHOR'S ORGANIZ ATION 08/21/2023 [facility] DATE CREATED AUTHOR AUTHOR'S ORGANIZ ATION 05/31/2025 [facility] EPIC Reason for Visit (unrecogniz ed section and content) Status Reason Specialty Diagnoses / Procedures Re ferred By Contact Referred To Contact Closed Cardiology Diagnoses S/P pericardial window creation Pericardial effusion Procedures ECHO Limited 2-D ECHOCARDIOGRAM LTD OR FOLL 2D ECHO WITHOUT CONTRAST - WITH DOP/COLOR FLOW Manolo Conklin, PA [address] [address] Reason Comments Diabetes Reason Comments Anxiety Reason [...] January 25, 2024 End: January 25, 2024 Cad Design Engineer Relationship Specialty Start Date End Date Paul Lewis MD [address] [place] [phone] PCP - General Family Medicine 05/01/24 Monika Castillo NP [address] [place] [phone] Nurse Practitioner Family Medicine 04/03/24 Monika Castillo NP [address] [place] [address] Nurse Practitioner Family Medicine 05/01/24 Cad Design Engineer Relationship Specialty Start Date End Date Paul Lewis MD [address] [place] [address] PCP - General Family Medicine 05/01/24 Monika Castillo NP [address] [place] [phone] Nurse Practitioner Family Medicine 04/03/24 Monika Castillo NP [address] [place] [phone] Nurse Practitioner Family Medicine 05/01/24 Cad Design Engineer Relationship Specialty Start Date End Date Paul Lewis MD [address] [place] [phone] PCP - General Family Medicine 05/01/24 Monika Castillo NP [address] [place] [phone] Nurse Practitioner Family Medicine 04/03/24 Monika Castillo NP [address] [place] [phone] Nurse Practitioner Family Medicine 05/01/24 Cad Design Engineer Relationship Specialty Start Date End Date Paul Lewis MD [address] [place] [phone] PCP - General Family Medicine 05/01/24 Monika Castillo NP [address] [place] [phone] Nurse Practitioner Family Medicine 04/03/24 Monika Castillo NP [address] [place] [address] Nurse Practitioner Family Medicine 05/01/24 Cad Design Engineer Relationship Specialty Start Date End Date Paul Lewis MD [address] [place] [phone] PCP - General Family Medicine 05/01/24 Monika Castillo NP [address] [place] [address] Nurse Practitioner Family Medicine 04/03/24 Monika Castillo NP [address] [place] [address] Nurse Practitioner Family Medicine 05/01/24 Cad Design Engineer Relationship Specialty Start Date End Date Paul Lewis MD [address] [place] [phone] PCP - General Family Medicine 05/01/24 Monika Castillo NP [address] [place] [address] Nurse Practitioner Family Medicine 04/03/24 Monika Castillo NP [address] [place] [phone] Nurse Practitioner Family Medicine 05/01/24 Cad Design Engineer Relationship Specialty Start Date End Date Paul Lewis MD [address] [place] [address] PCP - General Family Medicine 05/01/24 Monika Castillo NP [address] [place] [address] Nurse Practitioner Family Medicine 04/03/24 Monika Castillo NP [address] [place] [address] Nurse Practitioner Family Medicine 05/01/24 Cad Design Engineer Relationship Specialty Start Date End Date Paul Lewis MD [address] [place] [phone] PCP - General Family Medicine 05/01/24 Monika Castillo NP [address] [place] [phone] Nurse Practitioner Family Medicine 04/03/24 Monika Castillo NP [address] [place] [phone] Nurse Practitioner Family Medicine 05/01/24 Cad Design Engineer Relationship Specialty Start Date End Date Paul Lewis MD [address] [place] [phone] PCP - General Family Medicine 05/01/24 Monika Castillo NP [address] [place] [address] Nurse Practitioner Family Medicine 04/03/24 Monika Castillo NP [address] [place] [address] Nurse Practitioner Family Medicine 05/01/24 Cad Design Engineer Relationship Specialty Start Date End Date Paul Lewis MD [address] [place] [phone] PCP - General Family Medicine 05/01/24 Monika Castillo NP [address] [place] [address] Nurse Practitioner Family Medicine 04/03/24 Monika Castillo NP [address] [place] [address] Nurse Practitioner Family Medicine 05/01/24 Cad Design Engineer Relationship Specialty Start Date End Date Paul Lewis MD [address] [place] [phone] PCP - General Family Medicine 05/01/24 Monika Castillo NP [address] [place] [phone] Nurse Practitioner Family Medicine 04/03/24 Monika Castillo NP [address] [place] [phone] Nurse Practitioner Family Medicine 05/01/24 Cad Design Engineer Relationship Specialty Start Date End Date Paul Lewis MD [address] [place] [address] PCP - General Family Medicine 05/01/24 Monika Castillo NP [address] [place] [address] Nurse Practitioner Family Medicine 04/03/24 Monika Castillo NP [address] [place] [address] Nurse Practitioner Family Medicine 05/01/24 Cad Design Engineer Relationship Specialty Start Date End Date Paul Lewis MD [address] [place] [phone] PCP - General Family Medicine 05/01/24 Monika Castillo NP [address] [place] [address] Nurse Practitioner Family Medicine 04/03/24 Monika Castillo NP [address] [place] [address] Nurse Practitioner Family Medicine 05/01/24 Cad Design Engineer Relationship Specialty Start Date End Date Paul Lewis MD [address] [place] [phone] PCP - General Family Medicine 05/01/24 Monika Castillo NP [address] [place] [address] Nurse Practitioner Family Medicine 04/03/24 Monika Castillo NP [address] [place] [address] Nurse Practitioner Family Medicine 05/01/24 Cad Design Engineer Relationship Specialty Start Date End Date Paul Lewis MD [address] [place] [phone] PCP - General Family Medicine 05/01/24 Monika Castillo NP [address] [place] [phone] Nurse Practitioner Family Medicine 04/03/24 Monika Castillo NP [address] [place] [address] Nurse Practitioner Family Medicine 05/01/24 Cad Design Engineer Relationship Specialty Start Date End Date Paul Lewis MD [address] [place] [address] PCP - General Family Medicine 05/01/24 Monika Castillo NP [address] [place] [address] Nurse Practitioner Family Medicine 04/03/24 Monika Castillo NP [address] [place] [address] Nurse Practitioner Family Medicine 05/01/24 Cad Design Engineer Relationship Specialty Start Date End Date Paul Lewis MD [address] [place] [address] PCP - General Family Medicine 05/01/24 Monika Castillo NP [address] [place] [address] Nurse Practitioner Family Medicine 04/03/24 Monika Castillo NP [address] [place] [address] Nurse Practitioner Family Medicine 05/01/24 Cad Design Engineer Relationship Specialty Start Date End Date Paul Lewis MD [address] [place] [phone] PCP - General Family Medicine 05/01/24 Monika Castillo NP [address] [place] [phone] Nurse Practitioner Family Medicine 04/03/24 Monika Castillo NP [address] [place] [phone] Nurse Practitioner Family Medicine 05/01/24 Cad Design Engineer Relationship Specialty Start Date End Date Paul Lewis MD [address] [place] [phone] PCP - General Family Medicine 05/01/24 Monika Castillo NP [address] [place] [phone] Nurse Practitioner Family Medicine 04/03/24 Monika Castillo NP [address] [place] [phone] Nurse Practitioner Family Medicine 05/01/24 Goals (unrecognized [...] BE BASED ON THE PRIMARY CLINICAL RECORDS. [facility]. provides no warranty or guarantee of the accuracy or completeness of information in this document.
== END 2025-06-25 08:39 | disposition home or self-care (01) ==
LOC: MRI 08:38
PROVIDERS: PCP Nurse Practitioner; Visit Provider Podiatrist Foot & Ankle Surgery
DX: M76.821 Posterior tibial tendinitis, right leg (principal); M66.871 Spontaneous rupture of other tendons, right ankle and foot
CPT/HCPCS: 73721

== ENCOUNTER 2025-09-20 09:40 | Outpatient (OUT) | payer MEDICARE, OTHER, SELFPAY ==
--- OUTSIDE RECORDS SUMMARY | 2025-09-18 10:15 | XMS_ITS | Encounter Summary ---
Author Organization [facility] Address [address] [place] [address] Care Team Providers Care Plastics Scientist Name Role Phone Monika Castillo NP Unavailable [phone] Paul Lewis MD Primary Care Provider [phone] Monika Castillo NP Unavailable [phone] Reason for Referral * Clinic-Administered Medication (Routine) - ClosedSpecialtyDiagnoses / ProceduresReferred By ContactReferred To ContactOrthopaedic Surgery Diagnoses Impingement of left shoulder Procedures L Inj/Asp: L subacromial bursa Charly Williamson NP [address] [place] [address] Phone: tel: fax: Referral IDStatusReasonStart DateExpiration DateVisits RequestedVisits [id number]/4/20256/ Reason for Visit * ReasonCommentsPain Encounter Details DateTypeDepartmentCare Team (Latest Contact Info)Adgputvterk41/04/2025 10:15 AM ESTOffice Visit [facility] [address] [place] [phone] Charly Williamson NP [address] [place] [address] Impingement of left shoulder (Primary Dx); Left shoulder pain, unspecified chronicity; Arthritis of left acromioclavicular joint Social History Tobacco UseTypesPacks/DayYears UsedDateSmoking Tobacco: NeverSmokeless Tobacco: NeverAlcohol UseStandard Drinks/WeekCommentsNot Currently0 (1 standard drink = 0.6 oz pure alcohol)drinks [id number] Health LiteracyAnswerDate RecordedHow often do you need to have someone help you when you read instructions, pamphlets, or other written material from your doctor or pharmacy?Never 05/20/2024Social Connection and Isolation PanelAnswerDate RecordedIn a typical week, how many times do you talk on the phone with family, friends, or neighbors?Twice a week05/20/2024How often do you get together with friends or relatives?Once a week05/20/2024How often do you attend nondenominational or jain services?Patient zvunvxdy01/05/2024ctive Member of Clubs or OrganizationsNot on file05/20/2024ttends Club or Organization MeetingsNot on file05/20/2024Marital StatusNot on file05/20/2024UDIT-CAnswerDate RecordedQ1: How often do you have a drink containing alcohol?2-4 times a month05/20/2024verage Number of DrinksNot on file05/20/2024Frequency of Binge DrinkingNot on file05/20/2024HQ-2AnswerDate RecordedPatient Health Questionnaire-2 [id number] Stability Vital SignAnswerDate RecordedIn the last 12 months, was there a time when you were not able to pay the mortgage or rent on time?No05/20/2024In the past 12 months, how many times have you moved where you were living?t any time in the past 12 months, were you homeless or living in a usp (including now)?No 05/20/2024CommentsUnknownSex and Gender InformationValueDate RecordedSex Assigned at BirthNot on fileLegal YeeWymgjh50/15/2023 6:52 PM EDTGender Identity Ptfogi9003/07/2024 8:36 AM EDTSexual OrientationNot on filedocumented as of this encounter Progress Notes * Charly Williamson NP - 09/18/2025 10:15 AM ESTAssociated Order(s): L Inj/Asp: L subacromial bursa Post-Procedure Diagnose(s): Impingement of left shoulder Images from the original note were not included. HISTORY OF PRESENT ILLNESS: EST PT Cheri Blake is an 70 y.o. @ female. (EST PT) LT SHOULDER PAIN - LAST SEEN 11/2024 - RECENT ONSET ~1 MTH. XRAY LT SHOULDER EPIC 11/20/24 DEPO INJECTION 11/20/24 GREAT RELIEF FROM LAST INJECTION. PAIN ANTERIOR SHOULDER. PAIN WITH MOVEMENTS AND LAYING ON SIDE. DENIES RADIATION DOWN ARM. +TYL PRN. DENIES N/T. DENIES POPPING, GRINDING. GOOD ROM. LIFTS A LOT AT WORK. 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 RT HANDED. MELINDA: (07/2024), SLIPPED ON STEPS AND CAME BACK AND HIT WALL. ALLERGIES: Allergies[1] HOME MEDICATIONS: Current Outpatient Medications Medication Instructions amLODIPine (NORVASC) 10 mg, Oral, Daily ASPIRIN 81 PO 81 mg, Daily atorvastatin (LIPITOR) 80 mg, Oral, Nightly BD Pen Needle Lauren 2nd Gen 32G X 4 MM misc 1 each, Daily carvedilol (COREG) 25 mg, Oral, 2 times daily with meals escitalopram (LEXAPRO) 20 mg, Oral, Daily glipiZIDE (GLUCOTROL) 10 mg, Oral, Daily Lantus SoloStar 24 Units, Subcutaneous, Nightly levothyroxine (SYNTHROID, LEVOXYL) 112 mcg, Oral, Daily before breakfast Ozempic (0.25 or 0.5 MG/DOSE) 0.5 mg, Every 7 days PHYSICAL EXAM: Shoulder Musculoskeletal Exam Inspection Left [...] stated age Neurological: alert and oriented x3 Vitals: There is no height or weight on file to calculate BMI. Tobacco Use: Low Risk (09/18/2025) Patient History Smoking Tobacco Use: Never Smokeless Tobacco Use: Never Passive Exposure: Not on file Alcohol Use: Unknown (05/20/2024) AUDIT-C Frequency of Alcohol Consumption: 2-4 times a month Average Number of Drinks: Not on file Frequency of Binge Drinking: Not on file IMAGING: L Inj/Asp: L subacromial bursa on 09/18/2025 3:55 PM Indications: pain Details: 20 G needle, posterior approach Medications: 40 mg methylPREDNISolone acetate 40 MG/ML Outcome: tolerated well, no immediate complications Site cleaned with isopropyl alcohol Procedure, treatment alternatives, risks and benefits explained, specific risks discussed. Consent was given by the patient. Orders Placed This Encounter Procedures L Inj/Asp This order was created via procedure documentation ASSESSMENT: ICD-10-CM 1. Impingement of left shoulder M25.812 2. Left shoulder pain, unspecified chronicity M25.512 3. Arthritis of left acromioclavicular joint M19.012 PLAN: I reviewed exam findings with the patient and discussed treatment options, answered questions. I discussed with the patient the option of an injection as she had great relief with previous injection.I advised the patient of risks associated with an injection including a reaction to medication, infection, failure to improve and possible worsening. The patient demonstrated understanding. Patient requesting injection. Skin Cleansed with alcohol swab. Utilizing aseptic technique patient given 40mgDepomedrol was injected. Patient tolerated this well. Neurovasc intact s/p injection. Post injection care instructions discussed. Questions answered in laymen terms at the bedside. The diagnosis, home exercise plan and any ongoing restrictions/ recommendations reviewed. If unable to be reached in office, I recommend evaluation at nearest Emergency Room if any symptoms worsened or new symptoms develop for requiring urgent evaluation. [1] No Known Allergies documented in this encounter Plan of Treatment DateTypeDepartmentCare Team (Latest Contact Info)Zvmmkqdaenk63/12/2026 9:45 AM ESTOffice Visit [facility] [address] [place] [address] VincentHalle, DO [address] [place] [address] documented as of this encounter Procedures Procedure NamePriorityDate/TimeAssociated DiagnosisCommentsPR ARTHROCENTESIS ASPIR&/INJ MAJOR JT/BURSA W/O MADvrijbc12/04/2025 3:55 PM EST Impingement of left shoulder documented in this encounter Results * [place] ARTHROCENTESIS ASPIR&/INJ MAJOR JT/BURSA W/O US (09/18/2025 3:55 PM EST) Narrative Charly Williamson NP - 09/18/2025 3:55 PM EST Charly Williamson NP 09/18/2025 3:56 PM L Inj/Asp: L subacromial bursa on 09/18/2025 3:55 PM Indications: pain Details: 20 G needle, posterior approach Medications: 40 mg methylPREDNISolone acetate 40 MG/ML Outcome: tolerated well, no immediate complications Site cleaned with isopropyl alcohol Procedure, treatment alternatives, risks and benefits explained, specific risks discussed. Consent was given by the patient. Authorizing ProviderResult TypeResult StatusGrant Flo Williamson NPIN CLINIC/BEDSIDE ORDERABLESFinal Result documented in this encounter Visit Diagnoses Diagnosis Impingement of left shoulder- Primary Left shoulder pain, unspecified chronicity Arthritis of left acromioclavicular joint documented in this encounter Administered Medications Medication OrderMAR ActionAction DateDoseRateSite methylPREDNISolone acetate (DEPO-Medrol) injection 40 mg 40 mg, Intra-articular, Once PRN Procedure, Starting on Camryn 09/18/25 at 1555, For 1 dose Indications:Impingement of left cyrvnltaDvnhf70/04/2025 3:55 PM EST40 mg documented in this encounter Additional Health Concerns AssessmentNoted TimePHQ-9 Depression Total Score: 7005/08/2024 4:15 PM EDT documented as of this encounter Care Teams Team MemberRelationshipSpecialtyStocala DateEnd Date Paul Lewis MD [address] [place] [phone] PCP - GeneralFanvly Medicine05/01/24 Monika Castillo NP [address] [place] [phone] [facility]04/03/24 Monika Castillo NP [address] [place] [phone] [facility]05/01/24documented as of this encounter
--- OUTSIDE RECORDS SUMMARY | 2025-09-20 09:45 | XMS_ITS | CCD ---
Author Organization [facility] Care Team Providers Care Relations Liaison Name Role Phone Cordell Masters Primary Care [...] Unavailable Cordell Masters MD Primary Care Provider [phone] DR CORDELL MASTERS Primary Care Unavailable GUERRERO, [...] Unavailable CORDELL MASTERS Primary Care Unavailable Anna BOILER ERECTOR, Monika Unavailable Joshua BROWNPaul Primary Care Provider [phone] Anna BOILER ERECTOR, Monika Unavailable MARY KAY WOMACK Attending Unavailable MARY KAY WOMACK Referring Unavailable HALLE FIGUEROA Attending Unavailable MONIKA CASTILLO Attending Unavailable HALLE FIGUEROA Attending Unavailable HALLE FIGUEROA Attending Unavailable MONIKA CASTILLO Attending Unavailable Medications Current Medications MedicationDrug Class(es)DatesSig (Normalized)Sig (Original)3 ML semaglutide 1.34 MG/ML Pen Injector [Ozempic] (3 sources)Start: 86-98-9423Rxxdolk (1 MG/DOSE) 4 MG/3ML as directed Subcutaneous February, ActiveamLODIPine 10 mg oral tablet (20 sources)Dihydropyridine Calcium Channel BlockerStart: 04-03-2024 End: 93-32-1356algy 1 tablet by mouth once dailyamLODIPine (Norvasc) 10 MG tablet Indications: Primary hypertension Take 1 tablet (10 mg) by mouth Daily 90 tablet 1 03/12/2025 06/10/2025 ActiveStart: 47-46-6989oggq 10 mg by mouth once dailyAmlodipine Active 10 MG PO Daily January 01, 2024 12:00amtake 1 tablet by mouth every twenty-four hoursamLODIPine Besylate 10 MG 1 tablet Orally Once a day Activeaspirin 81 mg oral tablet (20 sources)Platelet Aggregation Inhibitor, Nonsteroidal Anti-inflammatory Drug take 81 mg by mouth once dailyASPIRIN 81 PO Take 81 mg by mouth Daily Active atorvastatin 80 mg oral tablet (20 sources)HMG-CoA Reductase InhibitorStart: 04-03-2024 End: 45-53-0901pakf 1 tablet by mouth at bedtimeatorvastatin (Lipitor) 80 MG tablet Indications: Type 2 diabetes mellitus with other circulatory com plications (HCC) Take 1 tablet (80 mg) by mouth at bedtime 90 tablet 1 03/12/2025 06/10/2025 ActiveStart: 30-63-9047drgs 1 tablet by mouth once daily Atorvastatin Active 0 .ROUTE .COMPLEX 90 January 01, 2024 10:06am TAKE 1 TABLET BY MOUTH EVERY DAY FOR 90 DAYSStart: 01-01-2024 End: 04-34-8185jyjx 80 mg by mouth once dailyAtorvastatin Discontinued 80 MG PO Daily 90 90 January 01, 2024 12:00am January 01, 2024 10:06amcarvedilol 25 mg oral tablet (20 sources)alpha-Adrenergic Ryley, beta-Adrenergic BlockerStart: 04-03-2024 End: 05-60-3206kagm 1 tablet by mouth in the morningcarvedilol (Coreg) 25 MG tablet Indications: Primary hypertension Take 1 tablet (25 mg) by mouth inthe morning and 1 tablet (25 mg) in the evening. Take with meals. 180 tablet 1 03/12/2025 06/10/2025 ActiveStart: 89-32-2346vogs 25 mg by mouth twice daily Carvedilol Active 25 MG PO Twice daily January 01, 2024 12:00amtake 1 tablet by mouth every twelve hoursCarvedilol 25 MG 1 tablet with food Orally Twice a day Activetake 1 tablet by mouth twice daily at mealtimecarvedilol (COREG) 12.5 MG tablet Take 12.5 mg by mouth 2 times daily (with meals) 0 Activecholecalciferol 0.125 mg oral capsule (20 sources)Vitamin DStart: 11-13-2024 End: 34-39-5427koxv 1 capsule by mouth once dailycholecalciferol (Vitamin D-3) 125 MCG (5000 UT) capsule Indications: Vitamin D deficiency Take 1 capsule (125 mcg) by mouth Daily 90 capsule 03/12/2025 06/10/2025 Activeclopidogrel 75 mg oral tablet (20 sources)P2Y12 Platelet InhibitorStart: 08-09-2024 End: 39-14-9438vbuw 1 tablet by mouth once dailyclopidogrel (Plavix) 75 MG tablet Indications: Cerebrovascular accident (CVA), unspecified mechanism (CMS/HCC) Take 1 tablet (75 mg) by mouth Daily 90 tablet 1 10/24/2024 01/22/2025 ActiveStart: 34-00-4562gbxq 75 mg by mouth once dailyClopidogrel Active 75 MG PO Daily January 01, 2024 12:00amtake 1 tablet by mouth once dailyClopidogrel Bisulfate 75 MG TAKE 1 TABLET BY MOUTH EVERY DAY for 90 Activeescitalopram 20 mg oral tablet (20 sources)Serotonin Reuptake InhibitorStart: 03-12-2025 End: 35-90-2117skti 1 tablet by mouth once dailyescitalopram (Lexapro) 20 MG tablet Indications: Anxiety and depression Take 1 tablet (20 mg) by mouth Daily 90 tablet 06/09/2025 09/07/2025 ActiveStart: 04-03-2024 End: 08-60-9829kpkj 1 tablet by mouth once dailyescitalopram (Lexapro) 10 MG tablet Indications: Anxiety and depression (CMS/HCC) Take 1 tablet (10mg) by mouth Daily 90 tablet 1 10/24/2024 03/12/2025 Discontinued (Ineffective)Start: 25-96-5999bios 10 mg by mouth once dailyEscitalopram Oxalate Active 10 MG PO Daily January 01, 2024 12:00amtake 1 tablet by mouth every twenty-four hours Lexapro 10 MG 1 tablet Orally Once a day for 30 days ActiveglipiZIDE 10 mg oral tablet (20 sources)SulfonylureaStart: 12-26-2024 End: 87-51-0994wnuo 1 tablet by mouth once dailyglipiZIDE (Glucotrol) 10 MG tablet Indications: Type 2 diabetes mellitus with other circulatory comp lications (HCC) Take 1 tablet (10 mg) by mouth Daily 90 tablet 1 12/26/2024 ActiveStart: 55-48-5490jbif 1 tablet by mouth once dailyglipiZIDE (Glucotrol) 10 MG tablet Indications: Type 2 diabetes mellitus with other circulatory comp lications (CMS/HCC) Take 1 tablet (10 mg) by mouth Daily 90 tablet 1 04/03/2024 ActiveStart: 24-64-2066nwxg 10 mg by mouth once dailyGlipizide Active 10 MG PO Daily January 01, 2024 12:00amtake 1 tablet by mouth once dailyglipiZIDE 10 MG TAKE 1 TABLET BY MOUTH EVERY DAY for 90 Activehyoscyamine sulfate 0.125 mg oral tablet (6 sources)take 1 tablet by mouth every four hours as neededhyoscyamine (ANASPAZ;LEVSIN) 125 MCG tablet Take 125 mcg by mouth every 4 hours as needed for Cramping 0 Active3 ml insulin glargine 100 unt/ml pen injector (20 sources)Insulin AnalogStart: 23-97-8517qtdutxu glargine (Lantus SoloStar) 100 UNIT/ML pen Indications: Type 2 diabetes mellitus with othercirculatory complications (HCC) Inject 24 Units under the skin at bedtime 15 mL 3 05/23/2024 Activelevothyroxine sodium 0.112 mg oral tablet (20 sources)l-ThyroxineStart: 10-16-2024 End: 75-85-2015tbih 1 tablet by mouth before mealtimelevothyroxine (Synthroid, Levoxyl) 112 MCG tablet Indications: Hypothyroidism, unspecified type Take 1 tablet (112 mcg) by mouth in the morning. Take before meals. 90 tablet 1 03/12/2025 06/10/2025 ActiveStart: 67-98-3889ieoz 1 tablet by mouth before mealtimelevothyroxine (Synthroid, Levoxyl) 112 MCG tablet Indications: Hypothyroidism, unspecified type (CMS/HCC) Take 1 tablet (112 mcg) by mouth in the morning. Take before meals. 90 tablet 1 04/03/2024 ActiveStart: 01-15-2024 take 1 tablet by mouth once dailyLevothyroxine Active 0 .ROUTE .COMPLEX 90 January 15, 2024 12:35pm TAKE 1 TABLET BY MOUTH EVERY DAYStart: 01-01-2024 End: 59-65-8094edrt 112 ug by mouth once dailyLevothyroxine Discontinued 112 MCG PO Daily January 01, 2024 12:00am January 15, 2024 12:35pmStart: 02-81-6235xmvt 1 tablet by mouth every twenty-four hoursLevothyroxine Sodium 112 MCG 1 tablet Orally Once a day for 90 days Dec, Activetake 1 tablet by mouth once dailyLevothyroxine Sodium 112 MCG TAKE 1 TABLET BY MOUTH EVERY DAY for 90 Active take 1 tablet by mouth once dailylevothyroxine (SYNTHROID) 150 MCG tablet Take 150 mcg by mouth Daily 0 Emlcwb54 hr metFORMIN hydrochloride 500 mg extended release oral tablet (13 sources)BiguanideStart: 64-66-5741fsha 500 mg by mouth once dailyMetformin Active 500 MG PO Daily January 01, 2024 12:00amStart: 51-56-4661bqmm 1 tablet by mouth every twenty-four hoursmetFORMIN HCl ER 500 MG 1 tablet Orally Once a day for 90 days Dec, Activetake 1 tablet by mouth once dailymetFORMIN (GLUCOPHAGE) 500 MG tablet Take 500 mg by mouth nightly 0 Activemetoprolol tartrate 25 mg oral tablet (3 sources)beta-Adrenergic BlockerStart: 01-12-6031iwtd 1 tablet by mouth twice dailymetoprolol tartrate (LOPRESSOR) 25 MG tablet Take 1 tablet by mouth 2 times daily 60 tablet 3 08/24/2019 Activeozempic (1 mg/dose) 4 mg/3ml solution pen-injector (3 sources)Start: 60-77-1250Hgfbapv (1 MG/DOSE) 4 MG/3ML as directed Subcutaneous February, Activepen needle 33G x 4 mm misc (16 sources)Start: 03-14-2024 End: 22-28-5237hbh needle 33G x 4 mm misc Indications: 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/HCC) Injections subcutaneous daily 100 each 3 03/14/2024 12/26/2024 Discontinued (Therapy completed)Start: 03-14-2024 pen needle 33G x 4 mm misc Indications: 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/HCC) Injections subcutaneous daily 100 each 3 03/14/2024 ActiveSemaglutide (1 source)Start: 71-57-2125Jmftbnwuozy Active 1 MG SUBCUT As Directed January 01, 2024 12:00amSemaglutide,0.25 or 0.5MG/DOS, (Ozempic, 0.25 or 0.5 MG/DOSE,) 2 MG/3ML solution pen-injector (20 sources)Semaglutide,0.25 or 0.5MG/DOS, (Ozempic, 0.25 or 0.5 MG/DOSE,) 2 MG/3ML solution pen-injector Inject 0.5 mg under the skin every 7 (seven) days ActiveSITagliptin 100 mg oral tablet (6 sources)Dipeptidyl Peptidase 4 InhibitorStart: 12-01-8420auwe 1 tablet by mouth once dailyJANUVIA 100 MG tablet TAKE 1 TABLET BY MOUTH EVERY DAY 0 08/22/2019 Activesulfamethoxazole 800 mg / trimethoprim 160 mg oral tablet (3 sources)Dihydrofolate Reductase Inhibitor Antibacterial, Sulfonamide AntimicrobialStart: 17-82-6786jqqg 1 tablet by mouth every twelve hoursBactrim DS 800-160 MG 1 tablet Orally Twice a day for 10 day(s) February, Active Completed/Discontinued Medications MedicationDrug Class(es)DatesSig (Normalized)Sig (Original)levoFLOXacin 750 mg oral tablet (4 sources)Quinolone AntimicrobialStart: 01-01-2024 End: 69-19-7609tnay 750 mg by mouth once dailyLevofloxacin Discontinued 750 MG PO Daily January 01, 2024 12:00am January 25, 2024 10:46amtake 1 tablet by mouth once dailyLevaquin 750 MG 1 tablet Orally Once a day for 5 days Active1 ml methylPREDNISolone acetate 40 mg/ml injection (4 sources)CorticosteroidStart: 11-20-2024 End: 82-86-2465txtptaYQROSRMamopa acetate (DEPO-Medrol) injection 40 mgStart: 11-20-2024 End: 83-37-089801 mg, Intra-articular, Once PRN Procedure, Starting on Mon11/20/24 at 1623, For 1 dose Problems Active Problems Problem ClassificationProblemDateDocumented DateEpisodic/ChronicAcute cerebrovascular disease (20 sources)Cerebrovascular accident; Translations: [Cerebral infarction, unspecified]Onset: 019299-86-0177YgkehutQvixdkr disorders (20 sources)Mixed anxiety and depressive disorder; Translations: [Other specified anxiety disorders]Onset: 93-06-3948SngbzhrGxtxifv obstructive pulmonary disease and bronchiectasis (2 sources)Bronchitis, not specified as acute or chronic; Translations: [BRONCHITIS NOT SPEC ACUTE/CHRON]Onset: 94-42-0580KwdxgekxUvxrvves mellitus with complications (20 sources)Type 2 diabetes mellitus with hyperglycemia; Translations: [Type 2 diabetes mellitus]Onset: 711818-82-6045DprjcnzRjwbzuom mellitus without complication (20 sources)Type 2 diabetes mellitus without complication; Translations: [Type 2 diabetes mellitus without complications]Onset: 799836-31-4446Ijgvitg Essential hypertension (20 sources)Essential hypertension; Translations: [Essential (primary) hypertension]Onset: 309090-84-7692MorbnueXmrezhl and fatigue (10 sources)Chronic fatigue, unspecified; Translations: [Fatigue]Onset: 35-40-1102XjkdmmnEvejlop and fatigue (6 sources)Fatigue; Translations: [Other fatigue]EpisodicMood disorders (6 sources)Depression; Translations: [Depression]ChronicNutritional deficiencies (20 sources)Vitamin D deficiency; Translations: [Vitamin D deficiency, unspecified]Onset: 950372-13-2122LuvceqlCpziajycyxnvzo (2 sources)Arthritis of left acromioclavicular joint; Translations: [Primary osteoarthritis, left shoulder]89-39-8773CyxoxdoHpmvt connective tissue disease (9 sources)Pain in right foot; Translations: [Pain in right foot]Onset: 276265-21-1003QdacxwqxDwakt gastrointestinal disorders (1 source)Irritable bowel syndrome; Translations: [Mixed irritable bowel syndrome]ChronicOther lower respiratory disease (1 source)Other forms of dyspnea; Translations: [Other forms of dyspnea]Onset: 01-43-9731HqtxdzqoWthii lower respiratory disease (1 source)Shortness of breath; Translations: [Shortness of breath]Onset: 94-69-2233UqafwyhjPfmpo non-traumatic joint disorders (4 sources)Disorder of shoulder; Translations: [Other specified joint disorders, left shoulder]49-15-7823LcanasogWtbvv non-traumatic joint disorders (2 sources)Pain in left shoulder; Translations: [Pain in joint, shoulder region] 32-51-9846DwamczubHmmei non-traumatic joint disorders (7 sources)Acute ankle pain; Translations: [Pain in right ankle and joints of right foot]Onset: 199526-42-1220DxjogdkaVobsu nutritional; endocrine; and metabolic disorders (20 sources)Obesity caused by energy imbalance; Translations: [Class 1 obesity due to excess calories in adult]Onset: 417001-40-6977TmakpqeQwvpo nutritional; endocrine; and metabolic disorders (20 sources)Hypocalcemia; Translations: [Hypocalcemia]Onset: 11-08-2024 97-45-2783GawdstgBomjksb disorders (20 sources)Hypothyroidism; Translations: [Hypothyroidism, unspecified]Onset: 511197-71-0922Punrrgf Past or Other Problems Problem ClassificationProblemDateDocumented DateEpisodic/ChronicMood disorders (20 sources)Mood disordersOnset: 42-77-445964208875-57-9641Qtoam aftercare (20 sources)Long-term current use of insulin; Translations: [long-term (current) use of insulin]Onset: 08-23-2024 Resolved: 884322-97-8702RomnlhcxMlluk connective tissue disease (20 sources)Bursitis of left shoulder; Translations: [Bursitis of left shoulder] Onset: 05-08-2024 Resolved: 529434-37-2242XkqkufcvOjmuk non-traumatic joint disorders (20 sources)Chronic pain of left upper limb; Translations: [Pain in left shoulder]Onset: 965860-34-1827MkrkhaqdJvxfn screening for suspected conditions (not mental disorders or infectious disease) (20 sources)Patient encounter status; Translations: [Encounter for screening mammogram for malignant neoplasm of breast]Onset: 749461-55-0771Ixkfcejd Other upper respiratory infections (20 sources)Acute upper respiratory infection; Translations: [Acute upper respiratory infection, unspecified]Onset: 04-03-2024 Resolved: 345788-05-0075CgopyjrvMkdf-; endo-; and myocarditis; cardiomyopathy (except that caused by tuberculosis or sexually transmitted disease) (20 sources)Pericardial effusion; Translations: [Acute bloody pericarditis] Onset: 641853-70-5542AbfiljodNyyzyzsi; pneumothorax; pulmonary collapse (19 sources)Pleural effusion; Translations: [Atelectasis]86-19-5315Omkylszo Pneumonia (except that caused by tuberculosis or sexually transmitted disease) (6 sources)Infective pneumonia; Translations: [Pneumonia due to infectious organism]Onset: 567619-15-5678NzpuowibYqqcseut codes; unclassified (1 source)History of pericardiectomy; Translations: [S/P pericardial window creation]EpisodicViral infection (20 sources)Coxsackie virus disease; Translations: [Enterovirus infection, unspecified]Onset: 988185-32-9853Synheahq Results Test NameValueInterpretationReference JgzdiOjlviyzfCsL9m (Bld) [Mass fraction]on 09-33-4072Ipefhkhxgtrnjz and review of laboratory resultsNormalNOMS Healthcare [facility] HealthcareLaboratory - Hematology and Cell countson 48-91-0472LtM3o (Bld) [Mass fraction]6.9 %[facility] HospitalNo Panel InformationOrdered By: Radiologist Radiology on 08-98-9983JASHSalem Memorial District Hospital Work Phone: No Panel Informationon 23-15-4551Oiyndzjou Study observation (narrative)NOM HealthcareXR ANKLE RT MIN 3Von 32-06-7787[place] [address] XRay Report Signed Patient: TANYA BLAKE MR#: [id number] : 1955 Acct:[id number] Age/Sex: 69 / F ADM Date: 05/22/25 Loc: [facility] Attending Dr: oMnika Castillo NP Ordering Physician: Monika Castillo NP Date of Service: 05/22/25 Procedure(s): XR ankle RT min 3V Accession Number(s): [id number] cc: Monika Castillo NP [place] [id number] Patient Name: TANYA BLAKE MRN: [id number] date: 1955 Sex: F Assigned Patient Location: [facility] Current Patient Location: [facility] Accession/Order Number: [id number] Exam Date: 05/22/2025 13:31 Report Date: 05/22/2025 [...] Jr., D.O. 05/22/2025 1:33 PM Dictation Location: [place] [address] Electronically authenticated by: [id number] Y Date: 05/22/2025 13:33 Dictated By: Bogdan Bowles M.D. Signed By: 05/22/251334 DD/ 32 TD/TT: Revenue Research Analyst:YONASHRadiology, Radiologist, - 05/22/2025 [place] [address] XRay Report Signed Patient: TANYA BLAKE MR#: [id number] : 1955 Acct:[id number] Age/Sex: 69 / F ADM Date: 05/22/25 Loc: RAD Attending Dr: Monika Castillo NP Ordering Physician: Monika Castillo NP Date of Service: 05/22/25 Procedure(s): XR ankle RT min 3V Accession Number(s): [id number] cc: Monika Castillo NP [facility] [place] [address] Patient Name: TANYA BLAKE MRN: [id number] date: 1955 Sex: F Assigned Patient Location: [facility] Current Patient Location: [facility] Accession/Order Number: [id number] Exam Date: 05/22/2025 13:31 Report Date: 05/22/2025 [...] Jr., D.O. 05/22/2025 1:33 PM Dictation Location: [place] [address] Electronically authenticated by: [id number] Y Date: 05/22/2025 13:33 Dictated By: Bogdan Bowles M.D. Signed By: 05/22/251334 DD/ 32 TD/TT: Revenue Research Analyst: DWAYNE AustinXR FOOT RT MIN 3Von 02-02-[address] [address] XRay Report Signed Patient: TANYA BLAKE MR#: [id number] : 1955 Acct:[id number] Age/Sex: 69 / F ADM Date: 05/22/25 Loc: RAD Attending Dr: Monika Castillo BOILER ERECTOR Ordering Physician: Monika Castillo NP Date of Service: 05/22/25 Procedure(s): XR foot RT min 3V Accession Number(s): [id number] cc: Monika Castillo NP [place] [address] Patient Name: TANYA BLAKE MRN: [id number] date: 1955 Sex: F Assigned Patient Location: [facility] Current Patient Location: [facility] Accession/Order Number: [id number] Exam Date: 05/22/2025 13:31 Report Date: 05/22/2025 [...] Jr., D.O. 05/22/2025 1:33 PM Dictation Location: [place] [address] Electronically authenticated by: [id number] Y Date: 05/22/2025 13:33 Dictated By: Bogdan Bowles M.D. Signed By: 05/22/251334 DD/ 32 TD/TT: Revenue Research Analyst:STARadiologlety, RadiologistMD - 05/22/2025 The [place] [id number] XRay Report Signed Patient: TANYA BLAKE MR#: [id number] : 1955 Acct:[id number] Age/Sex: 69 / F ADM Date: 05/22/25 Loc: RAD Attending Dr: Monika Castillo BOILER ERECTOR Ordering Physician: Monika Castillo NP Date of Service: 05/22/25 Procedure(s): XR foot RT min 3V Accession Number(s): [id number] cc: Monika Castillo NP [facility] [place] [address] Patient Name: TANYA BLAKE MRN: [id number] date: 1955 Sex: F Assigned Patient Location: [facility] Current Patient Location: [facility] Accession/Order Number: [id number] Exam Date: 05/22/2025 13:31 Report Date: 05/22/2025 [...] Jr., D.O. 05/22/2025 1:33 PM Dictation Location: [place] [address] Electronically authenticated by: [id number] Y Date: 05/22/2025 13:33 Dictated By: Bogdan Bowles M.D. Signed By: 05/22/251334 DD/ 32 TD/TT: Revenue Research Analyst: DWAYNE Salazar TOMOSYNTHESIS SCREENING BIon 15-99-6459[place]duEl[place] [address] Mammography Report Signed Patient: TANYA BLAKE MR#: [id number] : 1955 Acct:[id number] Age/Sex: 69 / F ADM Date: 05/06/25 Loc: MAMMO Attending Dr: Monika Castillo NP Ordering Physician: Monika Castillo NP Results: Date of Service: 05/06/25 Follow Up: Procedure(s): MM tomosynthesis screening BI Accession Number(s): [id number] cc: Monika Castillo NP Patient Name: TANYA BLAKE MR#: [id number] : 1955 Exam Date: 05/06/2025 Ordering Doctor: [...] uterine cancer at age 51. LOCATION: [facility] BREAST COMPOSITION: There are scattered areas of [...] Signed By: 05/06/25 1553 DD/ 1552 TD/TT: Revenue Research Analyst:TBHRadiology, Radiologist, - 05/06/2025 [place] [address] Mammography Report Signed Patient: TANYA BLAKE MR#: [id number] : 1955 Acct:[id number] Age/Sex: 69 / F ADM Date: 05/06/25 Loc: MAMMO Attending Dr: Monika Castillo NP Ordering Physician: Monika Castillo NP Results: Date of Service: 05/06/25 Follow Up: Procedure(s): MM tomosynthesis screening BI Accession Number(s): [id number] cc: Monika Castillo NP Patient Name: TANYA BLAKE MR#: [id number] : 1955 Exam Date: 05/06/2025 Ordering Doctor: [...] uterine cancer at age 51. LOCATION: [facility] BREAST COMPOSITION: There are scattered areas of [...] Bowles M.D. Signed By: 05/06/25 1553 DD/ 51 TD/TT: Revenue Research Analyst: DWAYNE HealthcareRadiology Study observation (narrative)[facility] TOMOSYNTHESIS SCREENING BIOrdered By: Radiologist Radiology on 44-85-9851[facility] Work Phone: TB VITAMIN D 25 OHon 31-45-9640SAUKBKZ D20.6 ng/mL [facility] HospitalComment on above:<20 ng/mL Vit D deficient 20-<30 ng/mL Vit D insufficient 30-100 ng/mL Vit D sufficient >100 ng/mL Potential Toxicity CLINISYHendersonville Medical CenterHbA1c (Bld) [Mass fraction]on 33-23-1967Jwalqnavzmljce and review of laboratory resultsNormalCone HealthLaboratory - Hematology and Cell countson 65-43-2607GdM0j (Bld) [Mass fraction]6.9 %[facility] Panel Informationon 06-39-0473OrglfMary Kay Womack NP 11/20/2024 4:24 PM L Inj/Asp: L subacromial bursa on 11/20/2024 4:23 PM Indications: pain Details: 20 G needle, ultrasound-guided lateral approach Medications: 40 mg methylPREDNISolone acetate 40 MG/ML Outcome: tolerated well, no immediate complications Site cleaned with isopropyl alcohol Procedure, treatment alternatives, risks and benefits explained, specific risks discussed. Consent was given by the patient. [facility] HealthXR Shoulder - left 2 Viewson 55-31-3125Oafdizl Result: 11/20/2024: external AP, Grashey and scapular [...] bony process left shoulder. Mary Kay Womack RAG CUTTING MACHINE TENDER-REPAIRER CONTROLLER TESTER [facility] HealthRadiology Study observation (narrative)[facility] VITAMIN D 25 OHon 40-89-1055MMBXUWC D6.3 ng/mLNSAINT FRANC[facility] Comment on above:<20 ng/mL Vit D deficient 20-<30 ng/mL Vit D insufficient 30-100 ng/mL Vit D sufficient >100 ng/mL Potential Toxicity CLINISYHendersonville Medical CenterALL CBC WITH AUTO DIFFon 95-40-6210WUOVIIZCS ABSOLUTE AUTO0.1NOMS [facility] HospitalBasophils/100 WBC (Bld)0.8 %0.2 - 2.0 %[facility] Eosinophils/100 WBC (Bld)1.7 %0.9 - 7.0 %[facility] HospitalErythrocyte distribution width (RBC) [Ratio]13.1 %11.0 - 15.0 %[facility] HospitalHematocrit (Bld) [Volume fraction]42.6 %36.0 - 48.0 %[facility] HospitalHemoglobin (Bld) [Mass/Vol]14.2 g/dL 12.0 - 16.0 g/dLSalem Memorial District HospitalIMMATURE GRANULOCYTES ABS AUTO0.02NOParkland Health Center Immature granulocytes/100 WBC (Bld)0.3 %0.0 - 0.5 %[facility] HospitalInterpretation and review of laboratory resultsAbnormTemple University Health SystemLYMPHOCYTES ABSOLUTE AUTO1.7NOParkland Health CenterLymphocytes/100 WBC (Bld)25.4 %20.5 - 60.0 %[facility]–SmithvilleH (RBC) [Entitic mass]31.2 pg26.7 - 34.0 pgSaint Luke's North Hospital–SmithvilleHC (RBC) [Mass/Vol]33.3 g/dL29.9 - 35.2 g/dLSaint Luke's North Hospital–SmithvilleV (RBC) [Entitic vol]93.6 fL 81.0 - 99.0 fLSalem Memorial District HospitalMONOCYTES ABSOLUTE AUTO0.6NOParkland Health Center Monocytes/100 WBC (Bld)8.6 %1.7 - 12.0 %[facility] HospitalNEUTROPHILS ABSOLUTE AUTO 4.2N[facility] HospitalNeutrophils/100 WBC (Bld)63.2 %43.0 - 75.0 %[facility] Platelet mean volume (Bld) [Entitic vol]9.3 fLLow9.5 - 13.5 fLSalem Memorial District HospitalTB EO #0.1NOMS Genesis HospitalTB [id number] [facility] RBC4.55NOMS [facility] HospitalTB WBC 6.6NOParkland Health CenterCLINISYNCNCoxHealthYrbnqejdanGtB2s (Bld) [Mass fraction]on 39-32-5830Trnczewjeyvsno and review of laboratory resultsUNC Health LenoirLaboratory - Hematology and Cell countson 59-64-9766OxV3p (Bld) [Mass fraction]6.6 %[facility] HospitalCBC AUTO DIFFon [id number] #0.0 103/ul Normal0.0-0.1The [facility] Medical CenterComment on above:Performed By: #### CBC #### [facility] [address] [place] [address] Dr. Almaz HaywardBasophils/100 WBC (Bld)0.5 %Normal0.2-2.0The [facility] Comment on above:Performed By: #### CBC #### [facility] [address] [place] [address] Dr. Almaz Morgan #0.0 103/ulNormal0.0-0.7The [facility] CenterComment on above: Performed By: #### CBC #### [facility] [address] [place] [address] Dr. Almaz Fowlerosinophils/100 WBC (Bld)0.5 %Critically low0.9-7.0The [facility] CenterComment on above:Performed By: #### CBC #### [facility] [address] [place] [address] Dr. Almaz Fowlerrythrocyte distribution width (RBC) [Ratio]12.6 %Evahdh09.0-15.0 The [facility] CenterComment on above:Performed By: #### CBC #### [facility] [address] [place] [address] Dr. Almaz HaywardHematocrit (Bld) [Volume fraction]46.3 %Ydoboz72.0-48.0The [facility] CenterComment on above:Performed By: #### CBC #### [facility] [address] [place] [address] Dr. Almaz HaywardHemoglobin (Bld) [Mass/Vol]15.8 g/cKEswluw42.0-16.0The [facility] CenterComment on above:Performed By: #### CBC #### [facility] [address] [place] [address] Dr. Almaz Hernandez #0.02 10e3/ulNormal0.00-0.03The [facility] CenterComment on above:Performed By: #### CBC #### [facility] [address] [place] [address] Dr. Almaz Hernandez %0.3 %Normal0.0-0.5The [facility] CenterComment on above: Performed By: #### CBC #### [facility] [address] [place] [address] Dr. Amlaz Womack #1.3 103/ulNormal1.2-3.8The [facility] CenterComment on above:Performed By: #### CBC #### [facility] [address] [place] [address] Dr. Almaz Rosariohocytes/100 WBC (Bld)22.8 %Cadqej38.5-60.0The [facility] CenterComment on above:Performed By: #### CBC #### [facility] [address] [place] [address] Dr. Almaz Hayward DIFF REQNONormalThe [facility] CenterComment on above: Performed By: #### CBC #### [facility] [address] [place] [address] Dr. Almaz Frank (RBC) [Entitic mass]30.9 osEpjcmo47.7-34.0The [facility] CenterComment on above:Performed By: #### CBC #### [facility] [address] [place] [address] Dr. Almaz Frank (RBC) [Mass/Vol]34.1 g/eHOwuoti97.9-35.2The [facility] CenterComcorewell health [facility] on above:Performed By: #### CBC #### [facility] [address] [place] [address] Dr. Almaz Frank (RBC) [Entitic vol]90.4 nOCsfeiy80.0-99.0The [facility] CenterComment on above:Performed By: #### CBC #### [facility] [address] [place] [address] Dr. Almaz Werner #0.3 103/ulNormal0.3-0.8The [facility] CenterComment on above:Performed By: #### CBC #### [facility] [address] [place] [address] Dr. Almaz Rowellocytes/100 WBC (Bld)5.6 %Normal1.7-12.0The [facility] Comment on above:Performed By: #### CBC #### [facility] [address] [place] [address] Dr. Almaz FalconUT #4.1 103/ulNormal1.4-6.5The [facility] CenterComment on above:Performed By: #### CBC #### [facility] [address] [place] [address] Dr. Almaz Falconutrophils/100 WBC (Bld)70.3 %Jojrtc12.0-75.0The [facility] CenterComment on above:Performed By: #### CBC #### [facility] [address] [place] [address] Dr. Almaz aHnsenlet mean volume (Bld) [Entitic vol]9.1 fLCritically low 9.5-13.5The [facility] CenterComment on above:Performed By: #### CBC #### [facility] [address] [place] [address] Dr. Almaz HaywardPLT321 103/frBujqpo447-596Far [facility] CenterComment on above: Performed By: #### CBC #### [facility] [address] [place] [address] Dr. Almaz HaywardRBC5.12 106/ulNormal4.20-5.40The [facility] CenterComment on above:Performed By: #### CBC #### [facility] [address] [place] [address] Dr. Almaz HaywardWBC5.9 103/ulNormal4.0-11.0The [facility] CenterComment on above: Performed By: #### CBC #### [facility] [address] [place] [address] Dr. Almaz HaywardFREE T4on 82-43-5714Fvel T4 [Mass/Vol]1.09 ng/dLNormal0.76-1.46 The [facility] CenterComment on above:Performed By: #### FT4 #### [facility] [address] [place] [address] Dr. Almaz HaywardGLYCOHEMOGLOBIN A1Con [id number] RECOMMENDATIONSEE BELOWNormal [facility] on above:Result Comment: ADA RECOMMENDED LIMIT 4.0 - 6.0 ADA THERAPEUTIC TARGET < 7.0 ACTION SUGGESTED > 7.0Performed By: #### A1C #### [facility] [address] [place] [address] Dr. Almaz HaywardGlucose [Mass/Vol]278 mg/dLNormalThe [facility] Medical CenterComcorewell health [facility] hospital on above:Performed By: #### A1C #### [facility] [address] [place] [address] Dr. Almaz HaywardHbA1c (Bld) [Mass fraction]11.3 %Critically high4.5-6.2The [facility] CenterComment on above:Performed By: #### A1C #### [facility] [address] [place] [address] Dr. Almaz HaywardPROF 14(COMP METB)on 71-92-1800Nwepnjd [Mass/Vol]3.8 g/dLNormal 3.4-5.0The [facility] CenterComment on above:Performed By: #### TSH, CMP #### [facility] [address] [place] [address] Dr. Almaz HaywardAlbumin/Globulin [Mass ratio]0.9 {ratio}NormalThe [facility] Medical CenterComcorewell health [facility] hospital on above:Performed By: #### TSH, CMP #### [facility] [address] [place] [address] Dr. Almaz MarshP [Catalytic activity/Vol]114 U/ZIqxdyx09-790Qfy [facility] on above:Performed By: #### TSH, CMP #### [facility] [address] [place] [address] Dr. Almaz MarshT [Catalytic activity/Vol]25 U/LSrjynw26-29Tos [facility] CenterComcorewell health [facility] hospital on above:Performed By: #### TSH, CMP #### [facility] [address] [place] [address] Dr. Almaz HaywardAnion gap [Moles/Vol]14.9 mmol/LNormalThe [facility] Comment on above:Performed By: #### TSH, CMP #### [facility] [address] [address] [address] Almaz HaywardAST [Catalytic activity/Vol]12 U/LCritically sqj79-65Rfi [facility] CenterComment on above:Performed By: #### TSH, CMP #### [facility] [address] [address] [address] Almaz HaywardBilirubin [Mass/Vol]0.7 mg/dLNormal0.2-1.0The [facility] Comment on above:Performed By: #### TSH, CMP #### [facility] [address] [place] [address] Dr. lAmaz HaywardCalcium [Mass/Vol]9.3 mg/dLNormal8.5-10.1[facility] Comment on above:Performed By: #### TSH, CMP #### [facility] [address] [place] [address] Dr. Almaz HaywardChloride [Moles/Vol]98 mmol/SKguuwi29-995Zui [facility] Comment on above:Performed By: #### TSH, CMP #### [facility] [address] [place] [address] Dr. Almaz HaywardCO2 [Moles/Vol]26.9 mmol/CXgsvrx66.0-32.0[facility] Comment on above:Performed By: #### TSH, CMP #### [facility] [address] [place] [address] Dr. Almaz HaywardCreatinine [Mass/Vol]0.89 mg/dLNormal0.55-1.02The [facility] CenterComment on above:Performed By: #### TSH, CMP #### [facility] [address] [place] [address] Dr. Almaz FowlerGFR-AF ARMENIAN>60Normal>=60The [facility] CenterComment on above:Performed By: #### TSH, CMP #### [facility] [address] [address] [address] Almaz FowlerGFR-NON AF ARMENIAN>60Normal>=60The [facility] CenterComment on above:Performed By: #### TSH, CMP #### [facility] [address] [address] [address] Almaz HaywardGlobulin (S) [Mass/Vol]4.2 g/dLNormalThParkview Health Bryan HospitalComment on above:Performed By: #### TSH, CMP #### [facility] [address] [address] [address] Almaz HaywardGlucose [Mass/Vol]304 mg/dLCritically cddo15-356Nly [facility] CenterComment on above:Performed By: #### TSH, CMP #### [facility] [address] [place] [address] Dr. Almaz HaywardPotassium [Moles/Vol]3.8 mmol/LNormal3.5-5.1The [facility] Comment on above:Performed By: #### TSH, CMP #### [facility] [address] [place] [address] Dr. Almaz HaywardProtein [Mass/Vol]8.0 g/dLNormal6.4-8.2[facility] Comment on above:Performed By: #### TSH, CMP #### [facility] [address] [place] [address] Dr. Almaz HaywardSodium [Moles/Vol]136 mmol/BUniznu892-488Pvf [facility] Comment on above:Performed By: #### TSH, CMP #### [facility] [address] [place] [address] Dr. Almaz HaywardUrea nitrogen [Mass/Vol]10.0 mg/dLNormal7.0-18.0The [facility] CenterComment on above:Performed By: #### TSH, CMP #### [facility] [address] [place] [address] Dr. Almaz HaywardUrea nitrogen/Creatinine [Mass ratio]11.2 mg/mgNormalThe [facility] CenterComment on above:Performed By: #### TSH, CMP #### [facility] [address] [place] [address] Dr. Almaz Tamez 56-07-6199QFD5.289 uIU/mLNormal0.358-3.740Grant HospitalComment on above:Performed By: #### CVDTBH #### [facility] [address] [place] [address] Dr. Almaz Peraza AUTO DIFFon 94-98-1373EHMJ #0.1 103/ulNormal0.0-0.1The [facility] CenterComment on above:Performed By: #### CVDTBH #### [facility] [address] [place] [address] Dr. Almaz HaywardBasophils/100 WBC (Bld)0.6 %Normal0.2-2.0[facility] Comment on above:Performed By: #### CVDTBH #### [facility] [address] [place] [address] Dr. Almaz Morgan #0.1 103/ulNormal0.0-0.7The [facility] CenterComment on above: Performed By: #### CVDTBH #### [facility] [address] [place] [address] Dr. Almaz Fowlerosinophils/100 WBC (Bld)1.2 %Normal0.9-7.0[facility] Comment on above:Performed By: #### CVDTBH #### [facility] [address] [place] [address] Dr. Almaz Fowlerrythrocyte distribution width (RBC) [Ratio]12.9 %Mymuej95.0-15.0 The [facility] CenterComment on above:Performed By: #### CVDTBH #### [facility] [address] [place] [address] Dr. Almaz HaywardHematocrit (Bld) [Volume fraction]43.1 %Izbisy79.0-48.0The [facility] CenterComment on above:Performed By: #### CVDTBH #### [facility] [address] [place] [address] Dr. Yilan ChangHemoglobin (Bld) [Mass/Vol]14.5 g/sCDiavhn28.0-16.0The [facility] CenterComment on above:Performed By: #### CVDTBH #### [facility] [address] [place] [address] Dr. Almaz Hernandez #0.04 10e3/ulCritically high0.00-0.03The [facility] Comment on above:Performed By: #### CVDTBH #### [facility] [address] [address] [address] Almaz Hernandez %0.5 %Normal0.0-0.5The [facility] CenterComment on above: Performed By: #### CVDTBH #### [facility] [address] [place] [address] Dr. Almaz Womack #1.6 103/ulNormal1.2-3.8The [facility] CenterComment on above:Performed By: #### CVDTBH #### [facility] [address] [place] [address] Dr. Almaz Rosariohocytes/100 WBC (Bld)20.1 %Critically low20.5-60.0The [facility] CenterComment on above:Performed By: #### CVDTBH #### [facility] [address] [place] [address] Dr. Almaz GrijalvaUAL DIFF REQNONormalThe [facility] CenterComment on above: Performed By: #### CVDTBH #### [facility] [address] [place] [address] Dr. Almaz Frank (RBC) [Entitic mass]31.3 ckHshyzp02.7-34.0The [facility] CenterComment on above:Performed By: #### CVDTBH #### [facility] [address] [place] [address] Dr. Almaz Frank (RBC) [Mass/Vol]33.6 g/dZVueezn06.9-35.2The [facility] CenterComment on above:Performed By: #### CVDTBH #### [facility] [address] [place] [address] Dr. Almaz FrankV (RBC) [Entitic vol]93.1 wUHfenvx25.0-99.0The [facility] CenterComment on above:Performed By: #### CVDTBH #### [facility] [address] [place] [address] Dr. Almaz Werner #0.5 103/ulNormal0.3-0.8The [facility] CenterComment on above:Performed By: #### CVDTBH #### [facility] [address] [place] [address] Dr. Almaz Rowellocytes/100 WBC (Bld)7.0 %Normal1.7-12.0The [facility] Comment on above:Performed By: #### CVDTBH #### [facility] [address] [place] [address] Dr. Almaz Amaral #5.5 103/ulNormal1.4-6.5The [facility] CenterComment on above:Performed By: #### CVDTBH #### [facility] [address] [place] [address] Dr. Almaz Falconutrophils/100 WBC (Bld)70.6 %Kevueq13.0-75.0The [facility] CenterComment on above:Performed By: #### CVDTBH #### [facility] [address] [place] [address] Dr. Almaz Hansenlet mean volume (Bld) [Entitic vol]9.1 fLCritically low 9.5-13.5The [facility] CenterComment on above:Performed By: #### CVDTBH #### [facility] [address] [place] [address] Dr. Almaz HaywardPLT364 103/cuAieoeg421-647Aht [facility] CenterComment on above: Performed By: #### CVDTBH #### [facility] [address] [place] [address] Dr. Almaz HaywardRBC4.63 106/ulNormal4.20-5.40The [facility] Hospitalment on above:Performed By: #### CVDTBH #### [facility] [address] [place] [address] Dr. Almaz HaywardWBC7.7 103/ulNormal4.0-11.0The [facility] CenterComment on above: Performed By: #### CVDTBH #### [facility] [address] [place] [address] Dr. Almaz HaywardCovid-19 PCR ([facility])on 80-85-5758VZKI-CoV-2 (COVID-19) RNA TI+probe Ql (Unsp spec)Not detectedNormalNOT DETECTEDThe [facility] Comment on above:Result Comment: When diagnostic testing is negative, the [...] for this test is supported by the Senior Care Specialist of Health and Human Service's declaration [...] which the test may no longer be used).Performed By: #### CVDTBH #### [facility] [address] [place] [address] Dr. Almaz HaywardFREE T4on 18-91-4323Srud T4 [Mass/Vol]1.29 ng/dLNormal0.76-1.46 The [facility] Hospitalment on above:Performed By: #### FT4 #### [facility] [address] [place] [address] Dr. Almaz HaywardGLYCOHEMOGLOBIN A1Con 89-29-0408DVT RECOMMENDATIONSEE BELOWNormal [facility] on above:Result Comment: ADA RECOMMENDED LIMIT 4.0 - 6.0 ADA THERAPEUTIC TARGET < 7.0 ACTION SUGGESTED > 7.0Performed By: #### A1C #### [facility] [address] [address] [address] Almaz HaywardGlucose [Mass/Vol]163 mg/dLNoParkview Health Bryan HospitalComment on above:Performed By: #### A1C #### [facility] [address] [address] [address] Almaz HaywardHbA1c (Bld) [Mass fraction]7.3 %Critically high4.5-6.2[facility] HospitalComment on above:Performed By: #### A1C #### [facility] [address] [place] [address] Dr. Almaz BaileyID PROFILEon [id number]-HDL RATIO NORMSEE [facility] HospitalComment on above:Result Comment: 3.3 - 4.4 LOW RISK 4.4 - 7.1 AVERAGE RISK 7.1 - 11.0 MODERATE RISK >11.0 HIGH RISKPerformed By: #### TSH, CMP, LIPID #### [facility] [address] [place] [address] Dr. Almaz Lamaesterol [Mass/Vol]160 mg/dLNormal<=200The [facility] Comment on above:Performed By: #### TSH, CMP, LIPID #### [facility] [address] [place] [address] Dr. Almaz HaywardCholesterol in HDL [Mass/Vol]43 mg/aDVkcvub54-32Ced [facility] CenterComment on above:Performed By: #### TSH, CMP, LIPID #### [facility] [address] [place] [address] Dr. Almaz HaywardCholesterol in LDL [Mass/Vol]66.6 mg/dLWexner Medical Centerment on above:Performed By: #### TSH, CMP, LIPID #### [facility] [address] [place] [address] Dr. Almaz Lamaesterol.total/Cholesterol in HDL [Mass ratio]3.7 {ratio} NormalThe [facility] on above:Performed By: #### TSH, CMP, LIPID #### [facility] [address] [address] [address] Almaz Woods NORMAL> or = 60 mg/dl - LOW CARDIOVASCULAR RISK <40 mg/dl - HIGH CARDIOVASCULAR RISKChillicothe VA Medical Center on above:Performed By: #### TSH, CMP, LIPID #### [facility] [address] [address] [address] Almaz HaywardLDL CALC NORMALSEE BELOWUniversity Hospitals Samaritan Medical CenterComcorewell health [facility] hospital on above:Result Comment: <100 mg/dl OPTIMAL 100 - 129 mg/dl NEAR OR ABOVE OPTIMAL 130 - 159 mg/dl BORDERLINE HIGH 160 - 189 mg/dl HIGH >190 mg/dl VERY HIGH Performed By: #### TSH, CMP, LIPID #### [facility] [address] [address] [address] Almaz HaywardTriglyceride [Mass/Vol]252 mg/dLCritically high<=150The [facility] on above:Performed By: #### TSH, CMP, LIPID #### [facility] [address] [address] [address] Almaz HaywardVLDL CALC50.4 mg/dLNoProMedica Memorial Hospital on above: Performed By: #### TSH, CMP, LIPID #### [facility] [address] [address] [address] Almaz HaywardPROF 14(COMP METB)on 97-14-7900Hluqbwb [Mass/Vol]3.5 g/dLNormal 3.4-5.0The [facility] on above:Performed By: #### TSH, CMP, LIPID #### [facility] [address] [address] [address] Almaz HaywardAlbumin/Globulin [Mass ratio]0.9 {ratio}NormalThe [facility] on above:Performed By: #### TSH, CMP, LIPID #### [facility] [address] [address] [address] Almaz MarshP [Catalytic activity/Vol]110 U/ADnnnvp29-435Jos Glen HospitalComment on above:Performed By: #### TSH, CMP, LIPID #### [facility] [address] [address] [address] Almaz Wilks [Catalytic activity/Vol]26 U/JFjkgrm83-31Wnx [facility] CenterComment on above:Performed By: #### TSH, CMP, LIPID #### [facility] [address] [address] [address] Almaz Gallowayon gap [Moles/Vol]12.9 mmol/LNormalGrant Hospital Comment on above:Performed By: #### TSH, CMP, LIPID #### [facility] [address] [address] [address] Almaz HaywardAST [Catalytic activity/Vol]10 U/LCritically sbq30-38CjvGrant HospitalComment on above:Performed By: #### TSH, CMP, LIPID #### [facility] [address] [place] [address] Dr. Almaz HaywardBilirubin [Mass/Vol]0.8 mg/dLNormal0.2-1.0[facility] Comment on above:Performed By: #### TSH, CMP, LIPID #### [facility] [address] [place] [address] Dr. Almaz HaywardCalcium [Mass/Vol]8.7 mg/dLNormal8.5-10.1[facility] Comment on above:Performed By: #### TSH, CMP, LIPID #### [facility] [address] [place] [address] Dr. Almaz HaywardChloride [Moles/Vol]104 mmol/XBzaxvq96-147Olr [facility] Comment on above:Performed By: #### TSH, CMP, LIPID #### [facility] [address] [place] [address] Dr. Almaz HaywardCO2 [Moles/Vol]27.0 mmol/SRpfdwl82.0-32.0[facility] Comment on above:Performed By: #### TSH, CMP, LIPID #### [facility] [address] [place] [address] Dr. Almaz HaywardCreatinine [Mass/Vol]0.71 mg/dLNormal0.55-1.02[facility] HospitalComment on above:Performed By: #### TSH, CMP, LIPID #### [facility] [address] [address] [address] Almaz FowlerGFR-AF ARMENIAN>60Normal>=60The [facility] CenterComment on above:Performed By: #### TSH, CMP, LIPID #### [facility] [address] [address] [address] Almaz FowlerGFR-NON AF ARMENIAN>60Normal>=60The [facility] CenterComment on above:Performed By: #### TSH, CMP, LIPID #### [facility] [address] [address] [address] Almaz HaywardGlobulin (S) [Mass/Vol]4.1 g/dLNormalThe [facility] CenterComment on above:Performed By: #### TSH, CMP, LIPID #### [facility] [address] [place] [address] Dr. Almaz HaywardGlucose [Mass/Vol]169 mg/dLCritically krof51-782DlfNationwide Children's Hospitalment on above:Performed By: #### TSH, CMP, LIPID #### [facility] [address] [place] [address] Dr. Almaz HaywardPotassium [Moles/Vol]3.9 mmol/LNormal3.5-5.1[facility] Comment on above:Performed By: #### TSH, CMP, LIPID #### [facility] [address] [place] [address] Dr. Almaz HaywardProtein [Mass/Vol]7.6 g/dLNormal6.4-8.2[facility] Comment on above:Performed By: #### TSH, CMP, LIPID #### [facility] [address] [place] [address] Dr. Almaz HaywardSodium [Moles/Vol]140 mmol/DBnyqzl102-471Jyq [facility] Comment on above:Performed By: #### TSH, CMP, LIPID #### [facility] [address] [place], [place] [address] Dr. Almaz Goldberg nitrogen [Mass/Vol]10.0 mg/dLNormal7.0-18.0The [facility] CenterComment on above:Performed By: #### TSH, CMP, LIPID #### [facility] [address] [place], [place] [address] Dr. Almaz Goldberg nitrogen/Creatinine [Mass ratio]14.1 mg/mgNormalThe [facility] CenterComment on above:Performed By: #### TSH, CMP, LIPID #### [facility] [address] [place] [address] [address] Almaz Tamez [id number] uIU/mLCritically low0.358-3.740The [facility] CenterComment on above:Performed By: #### TSH, CMP, LIPID #### [facility] [address] [address] [address] Almaz Naranjo [id number] tp. B11:80Normal<1:10[facility] GardenaComment on above:Performed By: #### CDP, TROPI, BMP, CRP, SED #### [facility] [address] [place] [address] Offline Cutter: Ralph Moran. B21:80Normal<1:10[facility] Of GardenaComment on above:Performed By: #### CDP, TROPI, BMP, CRP, SED #### [facility] [address] [place] [address] Offline Cutter: Ralph Moran. B31:320Normal<1:10[facility] Of GardenaComment on above:Performed By: #### CDP, TROPI, BMP, CRP, SED #### [facility] [address] [place] [address] Offline Cutter: Ralph Moran. B41:320Normal<1:10[facility] Of GardenaComment on above:Performed By: #### CDP, TROPI, BMP, CRP, SED #### [facility] [address] [place] [address] Offline Cutter: Ralph Moran tp. B51:20Normal<1:10[facility] Of GardenaComment on above:Performed By: #### CDP, TROPI, BMP, CRP, SED #### [facility] [address] [place] [address] Offline Cutter: Ralph Moran tp. B6<1:10Normal<1:10[facility] Of GardenaComment on above:Result Comment: (NOTE) INTERPRETIVE INFORMATION: Coxsackie B Virus Single positive antibody titers of greater than or equal to 1:80 may indicate past or current infection. Sero- conversion or an increase in titers between acute and convalescent sera of at least fourfold is considered strong evidence of current or recent infection. Performed by [facility], [address] [place] [id number] www.[employer], Clive Dowell MD, Lab. DirectorPerformed By: #### CDP, TROPI, BMP, CRP, SED #### [facility] [address] [place] [address] [phone] Offline Cutter: DAYANA Moran CHEST STANDARD (2 VW)Ordered By: Juanjo Coates on [id number] decrease in the left effusion and improved aeration of the lung bases. No new airspace disease in the interval.[employer] Work Phone: eXAMINATION: TWO XRAY VIEWS OF THE CHEST 10/21/2019 12:52 pm COMPARISON: September 06, 2019, August 24, 2019 HISTORY: ORDERING SYSTEM PROVIDED HISTORY: Pleural effusion on left TECHNOLOGIST PROVIDED HISTORY: pleural effusion FINDINGS: Interval decrease in left pleural effusion. Improved aeration of the lung bases. No new airspace disease, pneumothorax or evidence for edema. The cardiac mediastinal contours appear unchanged. No acute osseous abnormality identified.[employer] Phone: edi, [facility] Incoming Radiant Results From [employer] - 10/21/2019 1:50 PM EST EXAMINATION: TWO [...] No new airspace disease in the interval. [employer] Phone: cult,Mycobacteriaon [id number],Mycobacteria Specimen Description .THORACENTESIS FLUID Special Requests NOT REPORTED Direct Exam NO ACID FAST BACILLI SEEN (CONCENTRATED SMEAR) Culture NO GROWTH 44 DAYS Report Status FINAL 10/07/2019[facility] – JacksonComment on above:Performed By: #### CDP, TROPI, BMP, CRP, SED #### [facility] [address] [place] [address] [phone] Offline Cutter: Héctor Moran,MycobacteriaSpecimen Description .PERICARDIAL FLUID Special Requests NOT REPORTED Direct Exam NO ACID FAST BACILLI SEEN (CONCENTRATED SMEAR) Culture NO GROWTH 45 DAYS Report Status FINAL 10/07/2019[facility] – JacksonComment on above:Performed By: #### CDP, TROPI, BMP, CRP, SED #### [facility] [address] [place] [address] [phone] Offline Cutter: Héctor MoranFunguson [id number],FungusSpecimen Description .THORACENTESIS FLUID Special Requests NOT REPORTED Culture NO GROWTH 31 DAYS Report Status FINAL 09/23/2019[facility] – JacksonComment on above:Performed By: #### CDP, TROPI, BMP, CRP, SED #### [facility] [address] [place] [address] [phone] Offline Cutter: Héctor Moran,FungusSpecimen Description .HEART Special Requests .TISSUE Culture NO GROWTH 33 DAYS Report Status FINAL 09/23/2019[facility] – JacksonComment on above:Performed By: #### CDP, TROPI, BMP, CRP, SED #### [facility] [address] [place] [address] Offline Cutter: Héctor MoranFungusSpecimen Description .PERICARDIAL FLUID Special Requests NOT REPORTED Culture NO GROWTH 33 DAYS Report Status FINAL 09/23/2019[facility] – JacksonComment on above:Performed By: #### CDP, TROPI, BMP, CRP, SED #### [facility] [address] [place], [place] [phone] Offline Cutter: KAM Moran [facility] [id number] Echocardiography Report (TTE) Patient Name BLAKE Date of Study 09/04/2019 TANYA Date of 1955 Gender Female Age 64 year(s) Race Room Number Height: 65 inch, 165.1cm Corporate ID [id number] Weight: 175 pounds, 79.4 kg # Patient Acct [id number] BSA: 1.87 m^2 BMI: 29.12 # kg/m^2 MR # [id number] [facility] Nadiya Henryfany Interpreting Physician Geoff Burr Fellow Referring Nurse Practitioner Interpreting Referring Physician HAN Story Fellow Type of Study TTE procedure:2D Echocardiogram, Limited Echo. Procedure Date Date: 09/04/2019 Start: 09:01 AM Study Location: [facility] Technical Quality: Good visualization History / Tech. Comments: Procedure explained to patient. Limited echo to re-assess pericardial effusion. S/P Pericardial window, pericardial effusion, pneumonia Patient Status: Outpatient Height: 65 inches Weight: 175 pounds BSA: 1.87 m^2 BMI: 29.12 kg/m^2 HR: 66 bpm CONCLUSIONS Summary Limited Echo Global left ventricular systolic function is low normal. Estimated ejection fraction is 50 % . Calculat ed EF via heart model is 50 %. No significant pericardial effusion is seen. Anterior echo free space suggestive of adipose tissue is seen. Signature FINDINGS Left Ventricle Global left ventricular systolic function is low normal. Estimated ejection fraction is 50 % . Calculated EF via heart model is 50 %. Pericardial Effusion Nosignificant pericardial effusion is seen. Anterior echo free space suggestive of adipose tissue is seen.[facility] CAR[facility]A Mhpn Incoming Cardio Results From [facility]/[email or web address] - 09/04/2019 12:26 PM EST Transthoracic Echocardiography Report (TTE) Patient Name BLAKE Date of Study 09/04/2019 TANYA Date of 1955 Gender Female Age 64 year(s) Race Room Number Height: 65 inch, 165.1 cm Corporate ID [id number] Weight: 175 pounds, 79.4 kg # Patient Acct [id number] BSA: 1.87 m^2 BMI: 29.12 # kg/m^2 MR # [id number] Fluxer Alessandra Henry Interpreting Physician Geoff Burr Fellow Referring Nurse Practitioner Interpreting Referring Physician HAN Story Fellow Type of Study TTE procedure:2D Echocardiogram, Limited Echo. Procedure Date Date: 09/04/2019 Start: 09:01 AM Study Location: [facility] Technical Quality: Good visualization History [...] suggestive of adipose tissue is seen. Signature - - - - FINDINGS Left Ventricle Global left ventricular systolic function is low normal. Estimated ejection fraction is 50 % . Calculated EF via heart model is 50 %. Pericardial Effusion No significant pericardial effusion is seen. Anterior echo free space suggestive of adipose tissue is seen.[facility], KYCult,Fluidon [id number],FluidSpecimen Description .THORACENTESIS FLUID Special Requests NOT REPORTED Direct Exam MODERATE NEUTROPHILS NO BACTERIA SEEN Gram stain made from cytocentrifuged specimen. Organisms and cells will be concentrated. Culture NO GROWTH 6 DAYS Report Status FINAL 08/29/2019[facility] – JacksonComment on above:Performed By: #### CDP, TROPI, BMP, CRP, SED #### [facility] [address] [place] [id number] Offline Cutter: Campos Escobedo MDFluid Cell Count and Diffon [id number] CellsMONOCYTES, MESOTHELIAL CELLSHolzer Medical Center – JacksonComment on above:Result Comment: The reference range and other method performance specifications have not been established for this body fluid. The test result must be integrated into the clinical context for interpretation.Performed By: #### CDP, TROPI, BMP, CRP, SED #### [facility] [address] [place] [address] Offline Cutter: DARREL Moran Screenon [id number] ScreenNegativeNormal NEGSelect Medical Specialty Hospital - AkronComment on above:Result Comment: This test was run on the [employer] LOIS test system. The system provides ten test results (HEp-2NA, dsDNA, SSA, SSB, Sm, WOOD VENEER TAPER, Scl-70, Leonor-1, Centromere and Histone analytes) from a single patient sample. A negative LOIS screen indicates that the specimen was negative for all ten markers.Performed By: #### CDP, TROPI, BMP, CRP, SED #### [facility] [address] [place] [address] [phone] Offline Cutter: DARREL Moran ScreenNegativeNormalNEGSelect Medical Specialty Hospital - AkronComment on above:Result Comment: This test was run on the [employer] LOIS test system. The system provides ten test results (HEp-2NA, dsDNA, SSA, SSB, Sm, WOOD VENEER TAPER, Scl-70, Leonor-1, Centromere and Histone analytes) from a single patient sample. A negative LOIS screen indicates that the specimen was negative for all ten markers.Performed By: #### CDP, TROPI, BMP, CRP, SED #### [facility] [address] [place] [address] Offline Cutter: Mitul Moran CCPon [id number] CCP<1.5Normal<4.0[facility] - AkronComment on above:Result Comment: Reference Range: 0.0-4.0 U/mL Non Reactive/Negative >4.0 U/mL Reactive/PositivePerformed By: #### CDP, TROPI, BMP, CRP, SED #### [facility] [address] [place], [place] [phone] Offline Cutter: Ralph Moran [id number] tpGus B11:160 Normal<1:10[facility] - AkronComment on above:Performed By: #### CDP, TROPI, BMP, CRP, SED #### [facility] [address] [place] [address] [phone] Offline Cutter: Ralph Moran B21:320Normal<1:10[facility] - AkronComment on above:Performed By: #### CDP, TROPI, BMP, CRP, SED #### [facility] [address] [place] [address] [phone] Offline Cutter: Ralph Moran B31:160Normal<1:10[facility] - AkronComment on above:Performed By: #### CDP, TROPI, BMP, CRP, SED #### [facility] [address] [place] [address] Offline Cutter: Ralph Moran. B41:160Normal<1:10[facility] - AkronComment on above:Performed By: #### CDP, TROPI, BMP, CRP, SED #### [facility] [address] [place] [address] Offline Cutter: Ralph Moran. B51:20Normal<1:10[facility] - AkronComment on above:Performed By: #### CDP, TROPI, BMP, CRP, SED #### [facility] [address] [place] [phone] Offline Cutter: Ralph Moran. B6<1:10Normal<1:10[facility] - AkronComment on above:Result Comment: (NOTE) INTERPRETIVE INFORMATION: Coxsackie B Virus Single positive antibody titers of greater than or equal to 1:80 may indicate past or current infection. Sero- conversion or an increase in titers between acute and convalescent sera of at least fourfold is considered strong evidence of current or recent infection. Performed by [facility], [address] [place] [address] [phone] www.[employer], Clive Dowell MD, Lab. DirectorPerformed By: #### CDP, TROPI, BMP, CRP, SED #### [facility] [place] [address] Offline Cutter: Héctor Moran,Aerobe/Anaerobeon 08-26-2019 Cult,Aerobe/AnaerobeSpecimen Description .PERITONEAL FLUID Special Requests NOT REPORTED Direct Exam FEW NEUTROPHILS NO BACTERIA SEEN Culture NO GROWTH 5 DAYS Report Status FINAL 08/26/2019NormGrand Lake Joint Township District Memorial HospitalComment on above:Performed By: #### CDP, TROPI, BMP, CRP, SED #### [facility] [address] [place] [address] [phone] Offline Cutter: Héctor Moran,Tissueon [id number],TissueSpecimen Description .HEART Special Requests NOT REPORTED Direct Exam RARE NEUTROPHILS NO BACTERIA SEEN Culture NO GROWTH 5 DAYS Report Status FINAL 08/26/2019NormalSelect Medical Specialty Hospital - AkronComment on above:Performed By: #### CDP, TROPI, BMP, CRP, SED #### [facility] [address] [place] [address] [phone] Offline Cutter: Zahra Moran [id number] Coag (Bld) [Time]23.9 s Zrzybb87.5-30.5[facility] - AkronComment on above:Performed By: #### CDP, TROPI, BMP, CRP, SED #### [facility] [address] [place] [address] [phone] Offline Cutter: Nina Moran Metabolic Profon 08-24-2019(cont.)Normal [facility] - AkronComment on above:Result Comment: Average GFR for 60-69 years old: 85 mL/min/1.73sq m Chronic Kidney Disease: <60 mL/min/1.73sq m Kidney failure: <15 mL/min/1.73sq m eGFR calculated using average adult body mass. Additional eGFR calculator available at: http://www.[employer].Classiphix/multiple_crcl_2012.htmPerformed By: #### CDP, TROPI, BMP, CRP, SED #### [facility] [address] [place] [address] [phone] Offline Cutter: Daija Moran gap [Moles/Vol]12 mmol/LNormal9-17[facility] - AkronComment on above:Performed By: #### CDP, TROPI, BMP, CRP, SED #### [facility] [address] [place] [phone] Offline Cutter: Campos Escobedo MDCalcium [Mass/Vol]8.7 mg/dLNormal8.6-10.4[facility] - AkronComment on above:Performed By: #### CDP, TROPI, BMP, CRP, SED #### [address] [address] Offline Cutter: Campos Escobedo MDChloride [Moles/Vol]102 mmol/PDlohvd88-090JbmeeSelect Medical Specialty Hospital - AkronComment on above:Performed By: #### CDP, TROPI, BMP, CRP, SED #### [address] [address] Offline Cutter: Campos Escobedo MDCO2 [Moles/Vol]23 mmol/FEkdjkn92-62IzrxrSelect Medical Specialty Hospital - AkronComment on above:Performed By: #### CDP, TROPI, BMP, CRP, SED #### [address] [address] Offline Cutter: Campos Escobedo MDCreatinine [Mass/Vol]0.54 mg/dLNormal0.50-0.90 [facility] - AkronComment on above:Performed By: #### CDP, TROPI, BMP, CRP, SED #### [address] [address] Offline Cutter: CHANDA Moran, Amer>60Normal>60MerCommunity Hospital of Long BeachComment on above:Performed By: #### CDP, TROPI, BMP, CRP, SED #### [address] [address] Offline Cutter: CHANDA Moran,non Amer>60Normal>60MerCommunity Hospital of Long BeachComment on above:Performed By: #### CDP, TROPI, BMP, CRP, SED #### [address] [address] Offline Cutter: Campos Escobedo MDGlucose [Mass/Vol]173 mg/zWFiat48-56OxjepMemorial Medical CenterComment on above:Performed By: #### CDP, TROPI, BMP, CRP, SED #### [facility] [address] [place] [address] Offline Cutter: Campos Escobedo MDPotassium [Moles/Vol]4.5 mmol/LNormal3.7-5.3 [facility] - AkronComment on above:Performed By: #### CDP, TROPI, BMP, CRP, SED #### [facility] [address] [place] [address] Offline Cutter: Campos Escobedo MDSodium [Moles/Vol]137 mmol/DFfokpr297-491JsmyfSelect Medical Specialty Hospital - AkronComment on above:Performed By: #### CDP, TROPI, BMP, CRP, SED #### [facility] [address] [place] [address] Offline Cutter: Campos Escobedo MDUrea nitrogen [Mass/Vol]10 mg/dLNormal8-23[facility] - AkronComment on above:Performed By: #### CDP, TROPI, BMP, CRP, SED #### [address] [address] Offline Cutter: NITA Moran/CRE RatioNOT REPORTEDNormal9-20[facility] - AkronComment on above:Performed By: #### CDP, TROPI, BMP, CRP, SED #### [facility] [address] [place] [address] Offline Cutter: VITOR Morantaging:NOT REPORTEDNormalSelect Medical Specialty Hospital - AkronComment on above:Performed By: #### CDP, TROPI, BMP, CRP, SED #### [facility] [address] [place] [address] Offline Cutter: Campos Escobedo [facility] with Diffon [id number]. Basophil0.10 k/uL Normal0.00-0.20[facility] - AkronComment on above:Performed By: #### CDP, TROPI, BMP, CRP, SED #### [address] [address] Offline Cutter: Miriam Moran.Imm.Granulocyte0.12 k/uLNormal0.00-0.30[facility] - AkronComment on above:Performed By: #### CDP, TROPI, BMP, CRP, SED #### [place] [address] Offline Cutter: Miriam Moran.Neutrophil (Seg)4.17 k/uLNormal1.50-8.10 [facility] - AkronComment on above:Performed By: #### CDP, TROPI, BMP, CRP, SED #### [facility] [address] [place] [address] Offline Cutter: Campos Escobedo MDBasophils/100 WBC (Bld)1 %Normal0-2MMemorial Medical CenterComment on above:Performed By: #### CDP, TROPI, BMP, CRP, SED #### [place] [address] Offline Cutter: Campos Escobedo MDEosinophils (Bld) [#/Vol]0.29 10*3/uLNormal 0.00-0.44[facility] - AkronComment on above:Performed By: #### CDP, TROPI, BMP, CRP, SED #### [facility] [address] [place] [address] Offline Cutter: YARELI Moranosinophils/100 WBC (Bld)4 %Normal1-4[facility] - AkronComment on above:Performed By: #### CDP, TROPI, BMP, CRP, SED #### [facility] [address] [place] [address] Offline Cutter: aCmpos Escobedo MDErythrocyte distribution width (RBC) [Ratio]12.8 %Ftmsxc29.8-14.4[facility] - AkronComment on above:Performed By: #### CDP, TROPI, BMP, CRP, SED #### [place] [address] Offline Cutter: Campos Escobedo MDHematocrit (Bld) [Volume fraction]39.2 %Normal 36.3-47.1MMemorial Medical CenterComment on above:Performed By: #### CDP, TROPI, BMP, CRP, SED #### [address] [address] Offline Cutter: Campos Escobedo MDHemoglobin (Bld) [Mass/Vol]11.9 g/dLNormal 11.9-15.1MMemorial Medical CenterComment on above:Performed By: #### CDP, TROPI, BMP, CRP, SED #### [place] [address] Offline Cutter: Campos Escobedo MDImmature granulocytes (Bld) [#/Vol]2 %Wono9YbmatCommunity Hospital of Long BeachComment on above:Performed By: #### CDP, TROPI, BMP, CRP, SED #### [facility] [address] [place] [address] Offline Cutter: Campso Escobedo MDLymphocytes (Bld) [#/Vol]2.68 10*3/uLNormal 1.10-3.70[facility] - AkronComment on above:Performed By: #### CDP, TROPI, BMP, CRP, SED #### [facility] [address] [place] [address] Offline Cutter: Leyla Moranmphocytes/100 WBC (Bld)34 %Addgwf36-35ItfejSelect Medical Specialty Hospital - AkronComment on above:Performed By: #### CDP, TROPI, BMP, CRP, SED #### [facility] [address] [place] [address] Offline Cutter: PADMINI MoranCH (RBC) [Entitic mass]29.8 ivVcdplu25.2-33.5 [facility] - AkronComment on above:Performed By: #### CDP, TROPI, BMP, CRP, SED #### [facility] [address] [place] [address] Offline Cutter: PADMINI MoranCHC (RBC) [Mass/Vol]30.4 g/cYKxcebi22.4-34.8 [facility] - AkronComment on above:Performed By: #### CDP, TROPI, BMP, CRP, SED #### [place] [address] Offline Cutter: PADMINI MoranCV (RBC) [Entitic vol]98.0 iMSuyltt18.6-102.9 [facility] - AkronComment on above:Performed By: #### CDP, TROPI, BMP, CRP, SED #### [facility] [address] [place] [address] Offline Cutter: PADMINI Moranonocytes (Bld) [#/Vol]0.54 10*3/uLNormal 0.10-1.20[facility] - AkronComment on above:Performed By: #### CDP, TROPI, BMP, CRP, SED #### [facility] [address] [place] [address] Offline Cutter: Campos Escobedo MDMonocytes/100 WBC (Bld)7 %Normal3-12[facility] - AkronComment on above:Performed By: #### CDP, TROPI, BMP, CRP, SED #### [facility] [address] [place], [place] [phone] Offline Cutter: Campos Escobedo MDNeutrophil (Seg)52 %Lxrygj89-98CsbziSelect Medical Specialty Hospital - AkronComment on above:Performed By: #### CDP, TROPI, BMP, CRP, SED #### [address] [address] Offline Cutter: LONNY MoranBC Automated0.0 per 100 WBCNormal0.0[facility] - AkronComment on above:Performed By: #### CDP, TROPI, BMP, CRP, SED #### [address] [address] Offline Cutter: Kemal Moran mean volume (Bld) [Entitic vol]9.0 fL Normal8.1-13.5[facility] - AkronComment on above:Performed By: #### CDP, TROPI, BMP, CRP, SED #### [facility] [address] [place] [address] Offline Cutter: Sonia Morantemaribell (Bld) [#/Vol]664 10*3/iXGrdj320-541 [facility] - AkronComment on above:Performed By: #### CDP, TROPI, BMP, CRP, SED #### [address] [address] Offline Cutter: KEMI Moran (Bld) [#/Vol]4.00 10*6/uLNormal3.95-5.11 [facility] - AkronComment on above:Performed By: #### CDP, TROPI, BMP, CRP, SED #### [facility] [address] [place] [address] Offline Cutter: MARC Moran (Bld) [#/Vol]7.9 10*3/uLNormal3.5-11.3MMemorial Medical CenterComment on above:Performed By: #### CDP, TROPI, BMP, CRP, SED #### [facility] [place] [address] Offline Cutter: Nenita Moran Diff PerformedNOT REPORTEDNormalSelect Medical Specialty Hospital - AkronComment on above:Performed By: #### CDP, TROPI, BMP, CRP, SED #### [facility] [address] [place] [address] Offline Cutter: CAROLINA Moranlatelets (Bld) [#/Vol]NOT REPORTEDNoClinton Memorial HospitalComment on above:Performed By: #### CDP, TROPI, BMP, CRP, SED #### [facility] [address] [place] [address] Offline Cutter: KEMI Moran morphology finding Nom (Bld)NOT REPORTED NormalSelect Medical Specialty Hospital - AkronComment on above:Performed By: #### CDP, TROPI, BMP, CRP, SED #### [facility] [address] [place] [address] Offline Cutter: MARC Moran MorphologyNOT REPORTEDHolzer Medical Center – JacksonComment on above:Performed By: #### CDP, TROPI, BMP, CRP, SED #### [facility] [address] [place] [address] Offline Cutter: Warren Moran Ionicon 07-87-5068Mtlsrxb [Mass/Vol] 1.15 mmol/LNormal1.13-1.33[facility] - AkronComment on above: Performed By: #### CDP, TROPI, BMP, CRP, SED #### [facility] [address] [place] [address] Offline Cutter: Ralph Morann [id number] tp. B11:80 Normal<1:10[facility] - AkronComment on above:Performed By: #### CDP, TROPI, BMP, CRP, SED #### [facility] [address] [place] [address] Offline Cutter: Ralph Moran. B21:160Normal<1:10[facility] Hospital Of GardenaComment on above:Performed By: #### CDP, TROPI, BMP, CRP, SED #### [facility] [address] [place] [address] Offline Cutter: Ralph Moran. B31:320Normal<1:10[facility] GardenaComment on above:Performed By: #### CDP, TROPI, BMP, CRP, SED #### [facility] [address] [place] [address] Offline Cutter: Ralph Moran. B41:320Normal<1:10[facility] Of GardenaComment on above:Performed By: #### CDP, TROPI, BMP, CRP, SED #### [facility] [address] [place] [address] Offline Cutter: Ralph Moran. B51:20Normal<1:10[facility] Of GardenaComment on above:Performed By: #### CDP, TROPI, BMP, CRP, SED #### [facility] [address] [place] [address] [phone] Offline Cutter: Ralph Moran. B6<1:10Normal<1:10[facility] Of GardenaComment on above:Result Comment: (NOTE) INTERPRETIVE INFORMATION: Coxsackie B Virus Single positive antibody titers of greater than or equal to 1:80 may indicate past or current infection. Sero- conversion or an increase in titers between acute and convalescent sera of at least fourfold is considered strong evidence of current or recent infection. Performed by [facility], [address] [place] [id number] [email or web address], Clive Dowell MD, Lab. DirectorPerformed By: #### CDP, TROPI, BMP, CRP, SED #### [facility] [address] [place] [address] [phone] Offline Cutter: Nikko Morangnesiumon [id number] [Mass/Vol]2.0 mg/dLNormal1.6-2.6[facility] Of GardenaComment on above:Performed By: #### CDP, TROPI, BMP, CRP, SED #### [facility] [address] [place] [address] [phone] Offline Cutter: Mau Moran [id number] Coag (PPP) [Relative time]0.9 {INR}NormalSelect Medical Specialty Hospital - AkronComment on above:Result Comment: Therapeutic Range: Moderate Anticoagulant Intensity: INR = 2.0-3.0 High Anticoagulant Intensity: INR = 2.5-3.5Performed By: #### CDP, TROPI, BMP, CRP, SED #### [facility] [address] [place] [address] [phone] Offline Cutter: AKASH Moran Coag (PPP) [Time]9.9 sNormal9.0-12.0Select [facility] Hospital - AkronComment on above:Performed By: #### CDP, TROPI, BMP, CRP, SED #### [facility] [address] [place] [address] [phone] Offline Cutter: CAROLINA Moranhosphorus, Inorg.on [id number], Inorg.3.3 mg/dLNormal2.6-4.5[facility] Hospital - AkronComment on above: Performed By: #### CDP, TROPI, BMP, CRP, SED #### [facility] [address] [place] [address] 45974 Offline Cutter: DAYANA Moran CHEST PORTABLEon [id number] CHEST PORTABLE EXAMINATION: ONE XRAY VIEW OF [...] Signed by: Vladimir Acevedo MD 08/24/19 Final resultNormalSelect Medical Specialty Hospital - AkronAPTTon [id number] Coag (Bld) [Time]23.2 oForrpx01.5-30.5[facility] Hospital - AkronComment on above:Performed By: #### CDP, IOCAL, PT, PTT, BMP, MG, MAIKEL, TSHX #### [facility] [address] [place] [address] [phone] Offline Cutter: Nina Moran Metabolic Profon 08-23-2019(cont.)Normal [facility] Hospital - AkronComment on above:Result Comment: Average GFR for 60-69 years old: 85 mL/min/1.73sq m Chronic Kidney Disease: <60 mL/min/1.73sq m Kidney failure: <15 mL/min/1.73sq m eGFR calculated using average adult body mass. Additional eGFR calculator available at: http://www.Appuri.com/multiple_crcl_2012.htmPerformed By: #### CDP, TROPI, BMP, CRP, SED #### [facility] [address] [place] [address] [phone] Offline Cutter: Daija Moran gap [Moles/Vol]14 mmol/LNormal9-17[facility] Hospital - AkronComment on above:Performed By: #### CDP, TROPI, BMP, CRP, SED #### [facility] [address] [place] [address] [phone] Offline Cutter: Campos Madoff, MDCalcium [Mass/Vol]8.7 mg/dLNormal8.6-10.4[facility] Hospital - AkronComment on above:Performed By: #### CDP, TROPI, BMP, CRP, SED #### [facility] [address] [place] [address] 68518 Offline Cutter: Campos Escobedo MDChloride [Moles/Vol]99 mmol/OZzcvni25-737IykehSelect Medical Specialty Hospital - AkronComment on above:Performed By: #### CDP, TROPI, BMP, CRP, SED #### [facility] [address] [place] [address] 97621 Offline Cutter: Campos Escobedo MDCO2 [Moles/Vol]22 mmol/WQayfwi16-38UukziSelect Medical Specialty Hospital - AkronComment on above:Performed By: #### CDP, TROPI, BMP, CRP, SED #### [facility] [address] [place] [address] [phone] Offline Cutter: Campos Escobedo MDCreatinine [Mass/Vol]0.55 mg/dLNormal0.50-0.90 [facility] - AkronComment on above:Performed By: #### CDP, TROPI, BMP, CRP, SED #### [facility] [address] [place] [address] [phone] Offline Cutter: Campos Escobedo MDGFR, Amer>60Normal>60MerCommunity Hospital of Long BeachComment on above:Performed By: #### CDP, TROPI, BMP, CRP, SED #### [facility] [address] [place] [address] [phone] Offline Cutter: Campos Escobedo MDGFR,non Amer>60Normal>60[facility] - AkronComment on above:Performed By: #### CDP, TROPI, BMP, CRP, SED #### [facility] [address] [place] [address] 10812 Offline Cutter: Campos Escobedo MDGlucose [Mass/Vol]141 mg/hBGglb39-99Nfddl Memorial Hospital Of GardenaComment on above:Performed By: #### CDP, TROPI, BMP, CRP, SED #### [facility] [address] [place] [address] [phone] Offline Cutter: CAROLINA Moranotassium [Moles/Vol]3.9 mmol/LNormal3.7-5.3 [facility] - AkronComment on above:Performed By: #### CDP, TROPI, BMP, CRP, SED #### [facility] [address] [place] [address] 78106 Offline Cutter: VITOR Moranodium [Moles/Vol]135 mmol/YCcupnu346-113NszyvSelect Medical Specialty Hospital - AkronComment on above:Performed By: #### CDP, TROPI, BMP, CRP, SED #### [facility] [address] [place] [address] 72771 Offline Cutter: Campos Escobedo MDUrea nitrogen [Mass/Vol]18 mg/dLNormal8-23[facility] - AkronComment on above:Performed By: #### CDP, TROPI, BMP, CRP, SED #### [facility] [address] [place] [address] 76459 Offline Cutter: NITA Moran/CRE RatioNOT REPORTEDNormal9-20[facility] - AkronComment on above:Performed By: #### CDP, TROPI, BMP, CRP, SED #### [facility] [address] [place] [address] [phone] Offline Cutter: VITOR Morantaging:NOT REPORTEDNormalSelect Medical Specialty Hospital - AkronComment on above:Performed By: #### CDP, TROPI, BMP, CRP, SED #### [facility] [address] [place] [address] [phone] Offline Cutter: Campos Escobedo MDC-Reactive Proteinon [id number] [Mass/Vol] 31.5 mg/LHigh0.0-5.0[facility] - AkronComment on above:Performed By: #### CDP, TROPI, BMP, CRP, SED #### [facility] [address] [place] [address] Offline Cutter: Campos Escobedo [facility] with Diffon [id number]. Basophil0.07 k/uL Normal0.00-0.20[facility] - AkronComment on above:Performed By: #### CDP, IOCAL, PT, PTT, BMP, MG, MAIKEL, TSHX #### [facility] [address] [place] [address] Offline Cutter: Miriam Moran.Imm.Granulocyte0.10 k/uLNormal0.00-0.30[facility] - AkronComment on above:Performed By: #### CDP, IOCAL, PT, PTT, BMP, MG, MAIKEL, TSHX #### [facility] [address] [place] [address] Offline Cutter: Miriam Moran.Neutrophil (Seg)7.10 k/uLNormal1.50-8.10 [facility] - AkronComment on above:Performed By: #### CDP, IOCAL, PT, PTT, BMP, MG, MAIKEL, TSHX #### [facility] [address] [place] [address] Offline Cutter: Campos Escobedo MDBasophils/100 WBC (Bld)1 %Normal0-2MercSan Francisco VA Medical CenterComment on above:Performed By: #### CDP, IOCAL, PT, PTT, BMP, MG, MAIKEL, TSHX #### [facility] [address] [place] [address] 84531 Offline Cutter: Campos Escobedo MDEosinophils (Bld) [#/Vol]0.41 10*3/uLNormal 0.00-0.44[facility] - AkronComment on above:Performed By: #### CDP, IOCAL, PT, PTT, BMP, MG, MAIKLE, TSHX #### [place] [address] Offline Cutter: Campos Escobedo MDEosinophils/100 WBC (Bld)4 %Normal1-4[facility] - AkronComment on above:Performed By: #### CDP, IOCAL, PT, PTT, BMP, MG, MAIKEL, TSHX #### [place] [address] Offline Cutter: Campos Escobedo MDErythrocyte distribution width (RBC) [Ratio]13.0 %Njhdcu84.8-14.4[facility] - AkronComment on above:Performed By: #### CDP, IOCAL, PT, PTT, BMP, MG, MAIKEL, TSHX #### [place] [address] Offline Cutter: Campos Escobedo MDHematocrit (Bld) [Volume fraction]36.6 %Normal 36.3-47.1MMemorial Medical CenterComment on above:Performed By: #### CDP, IOCAL, PT, PTT, BMP, MG, MAIKEL, TSHX #### [place] [address] Offline Cutter: Campos Escobedo MDHemoglobin (Bld) [Mass/Vol]11.3 g/dLLow11.9-15.1 [facility] - AkronComment on above:Performed By: #### CDP, IOCAL, PT, PTT, BMP, MG, MAIKEL, TSHX #### [place] [address] Offline Cutter: Campos Escobedo MDImmature granulocytes (Bld) [#/Vol]1 %Vpri4HogwbSelect Medical Specialty Hospital - AkronComment on above:Performed By: #### CDP, IOCAL, PT, PTT, BMP, MG, MAIKEL, TSHX #### [facility] [address] [place] [address] 89802 Offline Cutter: Leyla Moranmphocytes (Bld) [#/Vol]2.58 10*3/uLNormal 1.10-3.70[facility] - AkronComment on above:Performed By: #### CDP, IOCAL, PT, PTT, BMP, MG, MAIKEL, TSHX #### [facility] [address] [place] [address] 96338 Offline Cutter: Xiomara Morancytes/100 WBC (Bld)24 %Biboeu30-71IztxjSelect Medical Specialty Hospital - AkronComment on above:Performed By: #### CDP, IOCAL, PT, PTT, BMP, MG, MAIKEL, TSHX #### [address] [address] Offline Cutter: JEANINE Moran (RBC) [Entitic mass]30.1 rwQoffna77.2-33.5 [facility] - AkronComment on above:Performed By: #### CDP, IOCAL, PT, PTT, BMP, MG, MAIKEL, TSHX #### [facility] [address] [place] [address] 15628 Offline Cutter: JEANINE MoranC (RBC) [Mass/Vol]30.9 g/jBDjarqp74.4-34.8 [facility] - AkronComment on above:Performed By: #### CDP, IOCAL, PT, PTT, BMP, MG, MAIKEL, TSHX #### [facility] [address] [place] [address] 24354 Offline Cutter: RADHA Moran (RBC) [Entitic vol]97.3 tGOuvmec17.6-102.9 [facility] - AkronComment on above:Performed By: #### CDP, IOCAL, PT, PTT, BMP, MG, MAIKEL, TSHX #### [facility] [address] [place] [address] 51881 Offline Cutter: PADMINI Moranonocytes (Bld) [#/Vol]0.47 10*3/uLNormal 0.10-1.20[facility] - AkronComment on above:Performed By: #### CDP, IOCAL, PT, PTT, BMP, MG, MAIKEL, TSHX #### [facility] [address] [place] [address] 07828 Offline Cutter: PADMINI Moranonocytes/100 WBC (Bld)4 %Normal3-12[facility] - AkronComment on above:Performed By: #### CDP, IOCAL, PT, PTT, BMP, MG, MAIKEL, TSHX #### [facility] [address] [place] [address] 37482 Offline Cutter: Anne Marie Moranutrophil (Seg)66 %Odzh46-70MlavuSelect Medical Specialty Hospital - AkronComment on above:Performed By: #### CDP, IOCAL, PT, PTT, BMP, MG, MAIKEL, TSHX #### [facility] [address] [place] [address] Offline Cutter: Campos Escobedo MDNRBC Automated0.0 per 100 WBCNormal0.0[facility] - AkronComment on above:Performed By: #### CDP, IOCAL, PT, PTT, BMP, MG, MAIKEL, TSHX #### [facility] [address] [place] [address] 14505 Offline Cutter: CAROLINA Moranlatelet mean volume (Bld) [Entitic vol]8.9 fL Normal8.1-13.5[facility] - AkronComment on above:Performed By: #### CDP, IOCAL, PT, PTT, BMP, MG, MAIKEL, TSHX #### [facility] [address] [place] [address] 68265 Offline Cutter: CAROLINA Moranlatelets (Bld) [#/Vol]638 10*3/gSLwtg393-302 [facility] - AkronComment on above:Performed By: #### CDP, IOCAL, PT, PTT, BMP, MG, MAIKEL, TSHX #### [facility] [address] [place] [address] 92199 Offline Cutter: KEMI Moran (Bld) [#/Vol]3.76 10*6/uLLow3.95-5.11[facility] - AkronComment on above:Performed By: #### CDP, IOCAL, PT, PTT, BMP, MG, MAIKEL, TSHX #### [facility] [address] [place] [address] 13041 Offline Cutter: MARC Moran (d) [#/Vol]10.7 10*3/uLNormal3.5-11.3MMemorial Medical CenterComment on above:Performed By: #### CDP, IOCAL, PT, PTT, BMP, MG, MAIKEL, TSHX #### [facility] [address] [place] [address] 93636 Offline Cutter: Nenita Moran PerformedNOT REPORTEDNormalMerCommunity Hospital of Long BeachComment on above:Performed By: #### CDP, IOCAL, PT, PTT, BMP, MG, MAIKEL, TSHX #### [facility] [address] [place] [address] 86977 Offline Cutter: Carlton Moarn (Bld) [#/Vol]NOT REPORTEDNormalMercy Memorial Hospital Of GardenaComment on above:Performed By: #### CDP, IOCAL, PT, PTT, BMP, MG, MAIKEL, TSHX #### [facility] [address] [place] [address] 50677 Offline Cutter: KEMI Moran morphology finding Nom (Bld)NOT REPORTED NormalSelect Medical Specialty Hospital - AkronComment on above:Performed By: #### CDP, IOCAL, PT, PTT, BMP, MG, MAIKEL, TSHX #### [facility] [address] [place] [address] Offline Cutter: MARC Moran MorphologyNOT REPORTEDHolzer Medical Center – JacksonComment on above:Performed By: #### CDP, IOCAL, PT, PTT, BMP, MG, MAIKEL, TSHX #### [facility] [address] [place] [address] 30692 Offline Cutter: JULIEN Moranalcium, Ionicon 90-56-5704Psttfww [Mass/Vol] 1.22 mmol/LNormal1.13-1.33[facility] - AkronComment on above: Performed By: #### CDP, IOCAL, PT, PTT, BMP, MG, MAIKEL, TSHX #### [facility] [address] [place] [address] 73127 Offline Cutter: Héctor Moran,Funguson 13-62-5596Lisf,FungusSpecimen Description .BODY FLUID Special Requests NOT REPORTED Culture DUPLICATE ORDER Report Status FINAL 08/23/2019[facility] Center – JacksonComment on above:Performed By: #### CDP, TROPI, BMP, CRP, SED #### [facility] [address] [place] [address] 78033 Offline Cutter: Héctor Mroan,Mycobacteriaon 91-87-7663Izks,Mycobacteria Specimen Description .BODY FLUID Special Requests NOT REPORTED Direct Exam NOT REPORTED Culture DUPLICATE ORDER Report Status FINAL 08/23/2019[facility] Center – JacksonComment on above:Performed By: #### CDP, TROPI, BMP, CRP, SED #### [facility] [address] [place] [address] 74588 Offline Cutter: Clem Moran Cell Count and Diffon 08-23-2019 Lymphocytes/100 WBC (Bld)49 %NormalSelect Medical Specialty Hospital - AkronComment on above:Result Comment: The reference range and other method performance specifications have not been established for this body fluid. The test result must be integrated into the clinical context for interpretation.Performed By: #### CDP, TROPI, BMP, CRP, SED #### [facility] [address] [place] [address] 85124 Offline Cutter: Campos Escobedo MDNeutrophils/100 WBC (Bld)4 %NormalSelect Medical Specialty Hospital - AkronComment on above:Result Comment: The reference range and other method performance specifications have not been established for this body fluid. The test result must be integrated into the clinical context for interpretation.Performed By: #### CDP, TROPI, BMP, CRP, SED #### [facility] [address] [place] [address] 95809 Offline Cutter: Campos Escobedo MDRBC (Bld) [#/Vol]99805 /xp2NhhqiaSwwkpHolzer Medical Center – JacksonComment on above:Result Comment: The reference range and other method performance specifications have not been established for this body fluid. The test result must be integrated into the clinical context for interpretation.Performed By: #### CDP, TROPI, BMP, CRP, SED #### [facility] [address] [place] [address] 79876 Offline Cutter: Campos Escobedo MDWBC (Bld) [#/Vol]5151 /zd2UocpkcBfkulClinton Memorial HospitalComment on above:Result Comment: The reference range and other method performance specifications have not been established for this body fluid. The test result must be integrated into the clinical context for interpretation.Performed By: #### CDP, TROPI, BMP, CRP, SED #### [facility] [address] [place] [address] 28285 Offline Cutter: Campos Escobedo MDAppearance (U)NOT REPORTEDNormGrand Lake Joint Township District Memorial HospitalComment on above:Performed By: #### CDP, TROPI, BMP, CRP, SED #### [facility] [address] [place] [address] 86189 Offline Cutter: Campos Escobedo MDBasophils/100 WBC (Bld)NOT KVKCGISTIrtzrk4KgckuSelect Medical Specialty Hospital - AkronComment on above:Performed By: #### CDP, TROPI, BMP, CRP, SED #### [facility] [address] [place] [address] 51637 Offline Cutter: Osvaldo Moran (U)NOT REPORTEDrmalSelect Medical Specialty Hospital - AkronComment on above:Performed By: #### CDP, TROPI, BMP, CRP, SED #### [facility] [address] [place] [address] 92509 Offline Cutter: JULIEN MoranommentNOT REPORTEDHolzer Medical Center – JacksonComment on above:Performed By: #### CDP, TROPI, BMP, CRP, SED #### [facility] [address] [place] [address] 76013 Offline Cutter: Campos Escobedo MDEosinophils (Bld) [#/Vol]NOT REPORTEDNormal[address] [place], [place] [address]Comment on above:Performed By: #### CDP, TROPI, BMP, CRP, SED #### [facility] [address] [place] [address] 99811 Offline Cutter: PADMINI Moranono/MacrophageNOT [facility] Healthcare SystemComment on above:Performed By: #### CDP, TROPI, BMP, CRP, SED #### [facility] [address] [place] [address] 94455 Offline Cutter: Campos Escobedo MDType of Specimen.THORACENTESIS FLUIDHolzer Medical Center – JacksonComment on above:Performed By: #### CDP, TROPI, BMP, CRP, SED #### [facility] [address] [place] [address] 18582 Offline Cutter: Campos Escobedo MDGlucose,Fluidon 79-84-7337Pcwmocw [Mass/Vol]160 mg/dLHolzer Medical Center – JacksonComment on above:Result Comment: There are no normals for body fluid samples.Performed By: #### CDP, TROPI, BMP, CRP, SED #### [facility] [address] [place] [address] [phone] Offline Cutter: Campos Escobedo MDGram Stainon 19-71-0161Gdbltntcmnv observation Gram stain Nom (Unsp spec)Specimen Description .THORACENTESIS FLUID Special Requests NOT REPORTED Direct Exam DUPLICATE ORDER Report Status FINAL 08/23/2019NoClinton Memorial HospitalComment on above:Performed By: #### CDP, TROPI, BMP, CRP, SED #### [facility] [address] [place] [address] [phone] Offline Cutter: Campos Escobedo MDHistology [facility] 33-01-4198Puoxhrkht [facility](NOTE) [id number] [facility] ANATOMIC PATHOLOGY [address] [place] [phone] NONGYNECOLOGICAL CYTOPATHOLOGY CONSULTATION Patient Name: TANYA BLAKE [facility] Rec: [id number] Path Number: [id number] Collected: 08/23/2019 Received: 08/26/2019 Reported: 08/28/2019 08:37 -- Diagnosis -- THORACENTESIS FLUID LEFT: NEGATIVE FOR MALIGNANCY. REACTIVE MESOTHELIAL CELLS. Jamel Hurtado Electronically Signed Out rdd/08/28/2019 Clinical Information [...] pathology consultation with consensus (DEONTE, LHM, SLS, JOSUE).[facility] Comment on above:Performed By: #### CDP, TROPI, BMP, CRP, SED #### [facility] [address] [place] [address] 75509 Offline Cutter: Rg Moran Jerod Cooley 62-42-3078NL - Hmtjz779 U/LNormalSelect Medical Specialty Hospital - AkronComment on above:Result Comment: There are no normals for body fluid samples.Performed By: #### CDP, TROPI, BMP, CRP, SED #### [facility] [address] [place] [address] 00053 Offline Cutter: April Moran of Specimen.THORACENTESIS FLUIDNormalSelect Medical Specialty Hospital - AkronComment on above:Performed By: #### CDP, TROPI, BMP, CRP, SED #### [facility] [address] [place] [address] 25864 Offline Cutter: Rg Moran Dehydrogenaseon 82-22-1293NUA [Catalytic activity/Vol]195 U/VKubheq311-375RbzlaSelect Medical Specialty Hospital - AkronComment on above:Performed By: #### CDP, TROPI, BMP, CRP, SED #### [facility] [address] [place] [address] 79419 Offline Cutter: Wili Moran Profileon 99-72-0639Vagxyap [Mass/Vol]3.3 g/dLLow3.5-5.2[facility] Of GardenaComment on above:Performed By: #### CDP, TROPI, BMP, CRP, SED #### [facility] [address] [place] [address] 73468 Offline Cutter: Campos Escobedo MDAlbumin/Globulin [Mass ratio]1.0 {ratio}Normal 1.0-2.5[facility] - AkronComment on above:Performed By: #### CDP, TROPI, BMP, CRP, SED #### [facility] [address] [place] [address] 30175 Offline Cutter: Campos Madoff, MDAlkaline Phos94 U/GDxlynt81-418ScmclSelect Medical Specialty Hospital - AkronComment on above:Performed By: #### CDP, TROPI, BMP, CRP, SED #### [facility] [address] [place] [address] 10533 Offline Cutter: Campos Escobedo MDALT [Catalytic activity/Vol]11 U/LNormal5-33 [facility] - AkronComment on above:Performed By: #### CDP, TROPI, BMP, CRP, SED #### [facility] [address] [place] [address] 47446 Offline Cutter: Campos Escobedo MDAST [Catalytic activity/Vol]8 U/LNormal<32[facility] - AkronComment on above:Performed By: #### CDP, TROPI, BMP, CRP, SED #### [facility] [address] [place] [address] 83161 Offline Cutter: Lucinda Moranirubin Ql (U)0.15 mg/dLLow0.3-1.2MMemorial Medical CenterComment on above:Performed By: #### CDP, TROPI, BMP, CRP, SED #### [facility] [address] [place] [address] 59947 Offline Cutter: Lucinda Moranirubin, IndirectCANNOT BE CALCULATEDNormal 0.00-1.00[facility] - AkronComment on above:Performed By: #### CDP, TROPI, BMP, CRP, SED #### [facility] [address] [place] [address] 84547 Offline Cutter: Lucinda Moranirubin.direct [Mass/Vol]mg/dLNormal<0.31[facility] - AkronComment on above:Performed By: #### CDP, TROPI, BMP, CRP, SED #### [facility] [address] [place] [address] 49498 Offline Cutter: Campos Escobedo MDProtein [Mass/Vol]6.7 g/dLNormal6.4-8.3[facility] Of GardenaComment on above:Performed By: #### CDP, TROPI, BMP, CRP, SED #### [facility] [address] [place] [address] 60444 Offline Cutter: Campos Escobedo MDGlobulin (S) [Mass/Vol]NOT REPORTEDNormal1.5-3.8 [facility] - AkronComment on above:Performed By: #### CDP, TROPI, BMP, CRP, SED #### [facility] [address] [place] [address] 12559 Offline Cutter: Nikko Morangnesiumon 85-99-9029Jbiydgkdh [Mass/Vol]1.9 mg/dLNormal1.6-2.6MMemorial Medical CenterComment on above:Performed By: #### CDP, TROPI, BMP, CRP, SED #### [facility] [address] [place] [address] 53662 Offline Cutter: Campos Escobedo MDNon-High School Social Science Teacher Cytologyon 14-18-3504Vfri No:NOT REPORTEDNormalSelect Medical Specialty Hospital - AkronComment on above:Performed By: #### CDP, TROPI, BMP, CRP, SED #### [facility] [address] [place] [address] 41156 Offline Cutter: VITOR Moranpecsavana Description.THORACENTESIS FLUIDNormal [facility] - AkronComment on above:Performed By: #### CDP, TROPI, BMP, CRP, SED #### [facility] [address] [place] [address] 35452 Offline Cutter: Campos Escobedo [facility], Quant, Fluidon 04-78-6546qK,Quant-Fluid7.0 NormalSelect Medical Specialty Hospital - AkronComment on above:Result Comment: There are no normals for body fluid samples.Performed By: #### CDP, TROPI, BMP, CRP, SED #### [facility] [address] [place] [address] [phone] Offline Cutter: Mau Moran [id number] Coag (PPP) [Relative time]0.9 {INR}NormalSelect Medical [facility] - AkronComment on above:Result Comment: Therapeutic Range: Moderate Anticoagulant Intensity: INR = 2.0-3.0 High Anticoagulant Intensity: INR = 2.5-3.5Performed By: #### CDP, IOCAL, PT, PTT, BMP, MG, MAIKEL, TSHX #### [facility] [address] [place] [address] [phone] Offline Cutter: AKASH Moran Coag (PPP) [Time]10.1 sNormal9.0-12.0[facility] - AkronComment on above:Performed By: #### CDP, IOCAL, PT, PTT, BMP, MG, MAIKEL, TSHX #### [facility]_ [address] [place] [phone] Offline Cutter: CAROLINA Moranhosphorus, Inorg.on 85-65-8066Fkudjofrum, Inorg.3.6 mg/dLNormal2.6-4.5MerCommunity Hospital of Long BeachComment on above: Performed By: #### CDP, TROPI, BMP, CRP, SED #### [facility] [address] [place] [address] [phone] Offline Cutter: CAROLINA Moranrotein,Tot,Fluidon 90-14-5947Cwn Prot. Conc.4.0 g/dLNormalMerCommunity Hospital of Long BeachComment on above:Result Comment: There are no normals for body fluid samples.Performed By: #### CDP, TROPI, BMP, CRP, SED #### [facility]_ [address] [place] [address] [phone] Offline Cutter: MATT Moran THORACENTESISon 62-00-0675EM THORACENTESIS PROCEDURE: ULTRASOUNDGUIDED left THORACENTESIS 08/23/2019 HISTORY: ORDERING SYSTEM PROVIDED HISTORY: Left pleural effusion for thoracentesis ultrasound guided TECHNOLOGIST PROVIDED HISTORY: Left pleural effusion for thoracentesis ultrasound guided TECHNIQUE: Informed consent was obtained after a detailed explanation of the procedure including risks, benefits, and alternatives. [place] protocol was performed. The left chest was prepped and draped in sterile fashion and local anesthesia was achieved with lidocaine. An 5 Luxembourgish needle sheath was advanced under ultrasound guidance into pleural effusion and thoracentesis was performed. The patient tolerated the procedure well. Estimated blood loss: Minimal FINDINGS: A total of 200 mL was removed. Ayad colored fluid IMPRESSION: Successful ultrasound guided thoracentesis. Interpreted by: Gordo Brar MD Signed by: Gordo Brar MD 08/23/19 Final resultNormGrand Lake Joint Township District Memorial HospitalXR CHEST (2 VW)on [id number] CHEST (2 VW)EXAMINATION: TWO XRAY VIEWS OF THE CHEST 08/23/2019 [...] Signed by: Renard Salcedo MD 08/23/19 Final resultNormGrand Lake Joint Township District Memorial HospitalAPTTon [id number] Coag (Bld) [Time]24.7 uOegjrq85.5-30.5[facility] - AkronComment on above:Performed By: #### CDP, IOCAL, PT, PTT, BMP, MG, MAIKEL, TSHX #### [facility]_ [facility] [place] [address] Offline Cutter: Campos Escobedo MDBasic Metab w/rfx MGon 08-22-2019(cont.)Normal [facility] - AkronComment on above:Result Comment: Average GFR for 60-69 years old: 85 mL/min/1.73sq m Chronic Kidney Disease: <60 mL/min/1.73sq m Kidney failure: <15 mL/min/1.73sq m eGFR calculated using average adult body mass. Additional eGFR calculator available at: http://www.[employer]/multiple_crcl_2012.htmPerformed By: #### CDP, IOCAL, PT, PTT, BMP, MG, MAIKEL, TSHX #### [address] [address] Offline Cutter: Campos Escobedo MDAnion gap [Moles/Vol]12 mmol/LNormal9-17[facility] - AkronComment on above:Performed By: #### CDP, IOCAL, PT, PTT, BMP, MG, MAIKEL, TSHX #### [place] [address] Offline Cutter: Campos Escobedo MDCalcium [Mass/Vol]8.9 mg/dLNormal8.6-10.4[facility] - AkronComment on above:Performed By: #### CDP, IOCAL, PT, PTT, BMP, MG, MAIKEL, TSHX #### [address] [address] Offline Cutter: Camops Escobedo MDChloride [Moles/Vol]101 mmol/PTjvrnv64-525GdqvvSelect Medical Specialty Hospital - AkronComment on above:Performed By: #### CDP, IOCAL, PT, PTT, BMP, MG, MAIKEL, TSHX #### [address] [address] Offline Cutter: Campos Escobedo MDCO2 [Moles/Vol]27 mmol/MEingul25-20XtoqaSelect Medical Specialty Hospital - AkronComment on above:Performed By: #### CDP, IOCAL, PT, PTT, BMP, MG, MAIKEL, TSHX #### [address] [address] Offline Cutter: Campos Escobedo MDCreatinine [Mass/Vol]0.60 mg/dLNormal0.50-0.90 [facility] - AkronComment on above:Performed By: #### CDP, IOCAL, PT, PTT, BMP, MG, MAIKEL, TSHX #### [address] [address] Offline Cutter: Campos Escobedo MDGFR, Amer>60Normal>60MerCommunity Hospital of Long BeachComment on above:Performed By: #### CDP, IOCAL, PT, PTT, BMP, MG, MAIKEL, TSHX #### [place] [address] Offline Cutter: Campos Escobedo MDGFR,non Amer>60Normal>60MerCommunity Hospital of Long BeachComment on above:Performed By: #### CDP, IOCAL, PT, PTT, BMP, MG, MAIKEL, TSHX #### [place] [address] Offline Cutter: Campos Escobedo MDGlucose [Mass/Vol]204 mg/nTPtvc94-53LloogMemorial Medical CenterComment on above:Performed By: #### CDP, IOCAL, PT, PTT, BMP, MG, MAIKEL, TSHX #### [place] [address] Offline Cutter: CAROLINA Moranotassium [Moles/Vol]4.8 mmol/LNormal3.7-5.3 [facility] - AkronComment on above:Performed By: #### CDP, IOCAL, PT, PTT, BMP, MG, MAIKEL, TSHX #### [address] [address] Offline Cutter: Campos Escobedo MDSodium [Moles/Vol]140 mmol/MWtxnnq199-232DyhhdSelect Medical Specialty Hospital - AkronComment on above:Performed By: #### CDP, IOCAL, PT, PTT, BMP, MG, MAIKEL, TSHX #### [address] [address] Offline Cutter: Campos Escobedo MDUrea nitrogen [Mass/Vol]17 mg/dLNormal8-23[facility] - AkronComment on above:Performed By: #### CDP, IOCAL, PT, PTT, BMP, MG, MAIKEL, TSHX #### [facility] [address] [place] [address] Offline Cutter: NITA Moran/CRE JuanOT REPORTEDNormal9-20[facility] - AkronComment on above:Performed By: #### CDP, IOCAL, PT, PTT, BMP, MG, MAIKEL, TSHX #### [facility] [address] [place] [address] Offline Cutter: VITOR Morantaging:NOT REPORTEDrmalSelect Medical Specialty Hospital - AkronComment on above:Performed By: #### CDP, IOCAL, PT, PTT, BMP, MG, MAIKEL, TSHX #### [facility] [address] [place] [address] Offline Cutter: Campos Escobedo [facility] GUYMONSIMONE with Diffon [id number]. Basophil0.05 k/uL Normal0.00-0.20[facility] - AkronComment on above:Performed By: #### CDP, IOCAL, PT, PTT, BMP, MG, MAIKEL, TSHX #### [facility] [address] [place] [address] Offline Cutter: MDAbs. LuisaImm.Granulocyte0.12 k/uLNormal0.00-0.30[facility] - AkronComment on above:Performed By: #### CDP, IOCAL, PT, PTT, BMP, MG, MAIKEL, TSHX #### [facility]_ [address] [place] [address] Offline Cutter: Miriam Moran.Neutrophil (Seg)11.05 k/uLHigh1.50-8.10[facility] - AkronComment on above:Performed By: #### CDP, IOCAL, PT, PTT, BMP, MG, MAIKEL, TSHX #### [facility]_ [address] [place] [address] Offline Cutter: Campos Escobedo MDBasophils/100 WBC (Bld)0 %Normal0-2MMemorial Medical CenterComment on above:Performed By: #### CDP, IOCAL, PT, PTT, BMP, MG, MAIKEL, TSHX #### [place] [address] Offline Cutter: Campos Escobedo MDEosinophils (Bld) [#/Vol]0.20 10*3/uLNormal 0.00-0.44[facility] - AkronComment on above:Performed By: #### CDP, IOCAL, PT, PTT, BMP, MG, MAIKEL, TSHX #### [place] [address] Offline Cutter: YARELI Moranosinophils/100 WBC (Bld)1 %Normal1-4[facility] - AkronComment on above:Performed By: #### CDP, IOCAL, PT, PTT, BMP, MG, MAIKEL, TSHX #### [place] [address] Offline Cutter: Campos Escobedo MDErythrocyte distribution width (RBC) [Ratio]12.7 %Dnzvdf32.8-14.4[facility] - AkronComment on above:Performed By: #### CDP, IOCAL, PT, PTT, BMP, MG, MAIKEL, TSHX #### [facility]_ [address] [place] [address] Offline Cutter: Campos Escobedo MDHematocrit (Bld) [Volume fraction]34.7 %Low 36.3-47.1MMemorial Medical CenterComment on above:Performed By: #### CDP, IOCAL, PT, PTT, BMP, MG, MAIKEL, TSHX #### [facility]_ [address] [place] [address] Offline Cutter: Campos Escobedo MDHemoglobin (Bld) [Mass/Vol]10.8 g/dLLow11.9-15.1 [facility] AkronComment on above:Performed By: #### CDP, IOCAL, PT, PTT, BMP, MG, MAIKEL, TSHX #### [address] [address] Offline Cutter: Campos Escobedo MDImmature granulocytes (Bld) [#/Vol]1 %Sovw7WijjiSelect Medical Specialty Hospital - AkronComment on above:Performed By: #### CDP, IOCAL, PT, PTT, BMP, MG, MAIKEL, TSHX #### [place] [address] Offline Cutter: Campos Escobedo MDLymphocytes (Bld) [#/Vol]1.79 10*3/uLNormal 1.10-3.70[facility] - AkronComment on above:Performed By: #### CDP, IOCAL, PT, PTT, BMP, MG, MAIKEL, TSHX #### [place] [address] Offline Cutter: Leyla Moranmphocytes/100 WBC (Bld)13 %Stj08-45GiuzsSelect Medical Specialty Hospital - AkronComment on above:Performed By: #### CDP, IOCAL, PT, PTT, BMP, MG, MAIKEL, TSHX #### [place] [address] Offline Cutter: PADMINI MoranCH (RBC) [Entitic mass]29.9 dfBlrkhy96.2-33.5 [facility] - AkronComment on above:Performed By: #### CDP, IOCAL, PT, PTT, BMP, MG, MAIKEL, TSHX #### [address] [address] Offline Cutter: Campos Madoff, MDMCHC (RBC) [Mass/Vol]31.1 g/dDBnvfzs34.4-34.8 [facility] - AkronComment on above:Performed By: #### CDP, IOCAL, PT, PTT, BMP, MG, MAIKEL, TSHX #### [address] [address] Offline Cutter: PADMINI MoranCV (RBC) [Entitic vol]96.1 oDYwphga00.6-102.9 [facility] AkronComment on above:Performed By: #### CDP, IOCAL, PT, PTT, BMP, MG, MAIKEL, TSHX #### [place] [address] Offline Cutter: PADMINI Moranonocytes (Bld) [#/Vol]0.71 10*3/uLNormal 0.10-1.20[facility] AkronComment on above:Performed By: #### CDP, IOCAL, PT, PTT, BMP, MG, MAIKEL, TSHX #### [place] [address] Offline Cutter: PADMINI Moranonocytes/100 WBC (Bld)5 %Normal3-12[facility] - AkronComment on above:Performed By: #### CDP, IOCAL, PT, PTT, BMP, MG, MAIKEL, TSHX #### [place] [address] Offline Cutter: Campos Escobedo MDNeutrophil (Seg)79 %Fama26-72YpxukSelect Medical Specialty Hospital - AkronComment on above:Performed By: #### CDP, IOCAL, PT, PTT, BMP, MG, MAIKEL, TSHX #### [address] [address] Offline Cutter: Campos Escobedo MDNRBC Automated0.0 per 100 WBCNormal0.0[facility] AkronComment on above:Performed By: #### CDP, IOCAL, PT, PTT, BMP, MG, MAIKEL, TSHX #### [facility]_ [address] [place] [address] Offline Cutter: Kemal Moran mean volume (Bld) [Entitic vol]9.1 fL Normal8.1-13.5[facility] - AkronComment on above:Performed By: #### CDP, IOCAL, PT, PTT, BMP, MG, MAIKEL, TSHX #### [facility]_ [address] [place] [address] Offline Cutter: Carlton Moran (Bld) [#/Vol]625 10*3/tRMbuc097-797 [facility] - AkronComment on above:Performed By: #### CDP, IOCAL, PT, PTT, BMP, MG, MAIKEL, TSHX #### [address] [address] Offline Cutter: Campos Escobedo [facility] (Bld) [#/Vol]3.61 10*6/uLLow3.95-5.11[facility] - AkronComment on above:Performed By: #### CDP, IOCAL, PT, PTT, BMP, MG, MAIKEL, TSHX #### [facility]_ [address] [place] [address] Offline Cutter: IRVING Moran (Bld) [#/Vol]13.9 10*3/uLHigh3.5-11.3MMemorial Medical CenterComment on above:Performed By: #### CDP, IOCAL, PT, PTT, BMP, MG, MAIKEL, TSHX #### [facility]_ [address] [place] [address] Offline Cutter: Nenita MoranNOT REPORTEDNormalSelect Medical Specialty Hospital - AkronComment on above:Performed By: #### CDP, IOCAL, PT, PTT, BMP, MG, MAIKEL, TSHX #### [facility] [address] [place] [address] Offline Cutter: CAROLINA Moranlatelets (Bld) [#/Vol]NOT REPORTEDNormalSelect Medical Specialty Hospital - AkronComment on above:Performed By: #### CDP, IOCAL, PT, PTT, BMP, MG, MAIKEL, TSHX #### [facility] [address] [place] [address] Offline Cutter: KEMI Moran morphology finding Nom (Bld)NOT REPORTED NormalSelect Medical Specialty Hospital - AkronComment on above:Performed By: #### CDP, IOCAL, PT, PTT, BMP, MG, MAIKEL, TSHX #### [facility] [address] [place] [address] Offline Cutter: MARC Moran MorphologyNOT REPORTEDNormalSelect Medical Specialty Hospital - AkronComment on above:Performed By: #### CDP, IOCAL, PT, PTT, BMP, MG, MIAKEL, TSHX #### [facility]_ [address] [place] [address] Offline Cutter: JULIEN Moranalcium, Ionicon 36-25-3974Tkhxrwy [Mass/Vol] 1.18 mmol/LNormal1.13-1.33[facility] - AkronComment on above: Performed By: #### CDP, IOCAL, PT, PTT, BMP, MG, MAIKEL, TSHX #### [facility]_ [address] [place] [address] Offline Cutter: TISHA Moran (Potassium)on 90-83-6526Gbdnbztrj [Moles/Vol] 4.3 mmol/LNormal3.7-5.3[facility] Hospital Of GardenaComment on above: Performed By: #### CDP, IOCAL, PT, PTT, BMP, MG, MAIKEL, TSHX #### [facility] [address] [place] [address] Offline Cutter: Nikko Morangnesiumon 68-07-9086Swkzhzzof [Mass/Vol]2.0 mg/dLNormal1.6-2.6[facility] Of GardenaComment on above:Performed By: #### CDP, IOCAL, PT, PTT, BMP, MG, MAIKEL, TSHX #### [facility] [address] [place] [address] [phone] Offline Cutter: Campos Escobedo MDMagnesium [Mass/Vol]2.2 mg/dLNormal1.6-2.6[facility] Of GardenaComment on above:Performed By: #### CDP, IOCAL, PT, PTT, BMP, MG, MAIKEL, TSHX #### [facility]_ [address] [place] [address] Offline Cutter: Mau Moran 73-48-2715JNX Coag (PPP) [Relative time]0.9 {INR}NormalSelect Medical Specialty Hospital - AkronComment on above:Result Comment: Therapeutic Range: Moderate Anticoagulant Intensity: INR = 2.0-3.0 High Anticoagulant Intensity: INR = 2.5-3.5Performed By: #### CDP, IOCAL, PT, PTT, BMP, MG, MAIKEL, TSHX #### [facility] [address] [place] [address] Offline Cutter: AKASH Moran Coag (PPP) [Time]9.6 sNormal9.0-12.0[facility] - AkronComment on above:Performed By: #### CDP, IOCAL, PT, PTT, BMP, MG, MAIKEL, TSHX #### [facility] [address] [place], [place] [phone] Offline Cutter: Kayode Moran Inorg.on 72-33-3049Eruqwophkr, Inorg.3.7 mg/dLNormal2.6-4.5[facility] - AkronComment on above: Performed By: #### CDP, IOCAL, PT, PTT, BMP, MG, MAIKEL, TSHX #### [facility] [address] [place] [address] [phone] Offline Cutter: Zahra Moran 66-35-3635fBWV Coag (Bld) [Time]26.4 s Whnnhj75.5-30.5[facility] - AkronComment on above:Performed By: #### CDP, IOCAL, PT, PTT, BMP, MG, MAIKEL, TSHX #### [facility]_ [address] [place] [address] [phone] Offline Cutter: Nina Moran Metabolic Profon 08-21-2019(cont.)Normal [facility] AkronComment on above:Result Comment: Average GFR for 60-69 years old: 85 mL/min/1.73sq m Chronic Kidney Disease: <60 mL/min/1.73sq m Kidney failure: <15 mL/min/1.73sq m eGFR calculated using average adult body mass. Additional eGFR calculator available at: http://www.[employer]/multiple_crcl_2012.htmPerformed By: #### CDP, IOCAL, PT, PTT, BMP, MG, MAIKEL, TSHX #### [facility]_ [address] [place] [address] Offline Cutter: Daija Moran gap [Moles/Vol]14 mmol/LNormal9-17[facility] - AkronComment on above:Performed By: #### CDP, IOCAL, PT, PTT, BMP, MG, MAIKEL, TSHX #### [facility]_ [address] [place] [address] [phone] Offline Cutter: JULIEN Moranalcium [Mass/Vol]8.5 mg/dLLow8.6-10.4[facility] - AkronComment on above:Performed By: #### CDP, IOCAL, PT, PTT, BMP, MG, MAIKEL, TSHX #### [facility]_ [address] [place] [address] [phone] Offline Cutter: Campos Madoff, MDChloride [Moles/Vol]100 mmol/OIvyxak05-064NndioSelect Medical Specialty Hospital - AkronComment on above:Performed By: #### CDP, IOCAL, PT, PTT, BMP, MG, MAIKEL, TSHX #### [facility]_ [address] [place] [address] Offline Cutter: Campos Escobedo MDCO2 [Moles/Vol]24 mmol/QVhpame46-37XewwuSelect Medical Specialty Hospital - AkronComment on above:Performed By: #### CDP, IOCAL, PT, PTT, BMP, MG, MAIKEL, TSHX #### [address] [address] Offline Cutter: JULIEN Moranreatinine [Mass/Vol]0.44 mg/dLLow0.50-0.90[facility] AkronComment on above:Performed By: #### CDP, IOCAL, PT, PTT, BMP, MG, MAIKEL, TSHX #### [facility]_ [address] [place] [address] Offline Cutter: Campos Escobedo MDGFR, Amer>60Normal>60[facility] - AkronComment on above:Performed By: #### CDP, IOCAL, PT, PTT, BMP, MG, MAIKEL, TSHX #### [facility]_ [address] [place] [address] Offline Cutter: Campos Escobedo MDGFR,non Amer>60Normal>60[facility] AkronComment on above:Performed By: #### CDP, IOCAL, PT, PTT, BMP, MG, MAIKEL, TSHX #### [facility]_ [address] [place] [address] Offline Cutter: Campos Escobedo MDGlucose [Mass/Vol]205 mg/eAQpjg09-62XnqlqMemorial Medical CenterComment on above:Performed By: #### CDP, IOCAL, PT, PTT, BMP, MG, MAIKEL, TSHX #### [address] [address] Offline Cutter: CAROLINA Moranotassium [Moles/Vol]4.0 mmol/LNormal3.7-5.3 [facility] AkronComment on above:Performed By: #### CDP, IOCAL, PT, PTT, BMP, MG, MAIKEL, TSHX #### [address] [address] Offline Cutter: VITOR Moranodium [Moles/Vol]138 mmol/OHplqcv997-303FwwsiSelect Medical Specialty Hospital - AkronComment on above:Performed By: #### CDP, IOCAL, PT, PTT, BMP, MG, MAIKEL, TSHX #### [address] [address] Offline Cutter: Rl Moran nitrogen [Mass/Vol]12 mg/dLNormal8-23[facility] - AkronComment on above:Performed By: #### CDP, IOCAL, PT, PTT, BMP, MG, MAIKEL, TSHX #### [address] [address] Offline Cutter: NITA Moran/JO ANN Arnett REPORTEDNormal9-20[facility] - AkronComment on above:Performed By: #### CDP, IOCAL, PT, PTT, BMP, MG, MAIKEL, TSHX #### [address] [address] Offline Cutter: VITOR Morantaging:NOT REPORTEDNormalSelect Medical Specialty Hospital - AkronComment on above:Performed By: #### CDP, IOCAL, PT, PTT, BMP, MG, MAIKEL, TSHX #### [address] [address] Offline Cutter: IGOR Moran with Diffon [id number]. Basophil0.09 k/uL Normal0.00-0.20[facility] - AkronComment on above:Performed By: #### CDP, IOCAL, PT, PTT, BMP, MG, MAIKEL, TSHX #### [facility]_ [address] [place] [address] Offline Cutter: MDAbs. LuisaImm.Granulocyte0.16 k/uLNormal0.00-0.30[facility] AkronComment on above:Performed By: #### CDP, IOCAL, PT, PTT, BMP, MG, MAIKEL, TSHX #### [facility]_ [address] [place] [address] Offline Cutter: MDAbs. LuisaNeutrophil (Seg)5.82 k/uLNormal1.50-8.10 [facility] - AkronComment on above:Performed By: #### CDP, IOCAL, PT, PTT, BMP, MG, MAIKEL, TSHX #### [facility]_ [address] [place] [address] Offline Cutter: Campos Escobedo MDBasophils/100 WBC (Bld)1 %Normal0-2MMemorial Medical CenterComment on above:Performed By: #### CDP, IOCAL, PT, PTT, BMP, MG, MAIKEL, TSHX #### [facility]_ [address] [place] [address] Offline Cutter: Campos Escobedo MDEosinophils (Bld) [#/Vol]0.56 10*3/uLHigh 0.00-0.44[facility] - AkronComment on above:Performed By: #### CDP, IOCAL, PT, PTT, BMP, MG, MAIKEL, TSHX #### [facility]_ [address] [place] [address] Offline Cutter: YARELI Moranosinophils/100 WBC (Bld)6 %High1-4[facility] - AkronComment on above:Performed By: #### CDP, IOCAL, PT, PTT, BMP, MG, MAIKEL, TSHX #### [address] [address] Offline Cutter: Campos Escobedo MDErythrocyte distribution width (RBC) [Ratio]12.5 %Jbcpcs06.8-14.4[facility] - AkronComment on above:Performed By: #### CDP, IOCAL, PT, PTT, BMP, MG, MAIKEL, TSHX #### [address] [address] Offline Cutter: Campos Escobedo MDHematocrit (Bld) [Volume fraction]35.2 %Low 36.3-47.1MMemorial Medical CenterComment on above:Performed By: #### CDP, IOCAL, PT, PTT, BMP, MG, MAIKEL, TSHX #### [place] [address] Offline Cutter: Campos Escobedo MDHemoglobin (Bld) [Mass/Vol]11.1 g/dLLow11.9-15.1 [facility] - AkronComment on above:Performed By: #### CDP, IOCAL, PT, PTT, BMP, MG, MAIKEL, TSHX #### [address] [address] Offline Cutter: Campos Escobedo MDImmature granulocytes (Bld) [#/Vol]2 %Vkec8FvsysSelect Medical Specialty Hospital - AkronComment on above:Performed By: #### CDP, IOCAL, PT, PTT, BMP, MG, MAIKEL, TSHX #### [address] [address] Offline Cutter: Campos Escobedo MDLymphocytes (Bld) [#/Vol]1.68 10*3/uLNormal 1.10-3.70[facility] - AkronComment on above:Performed By: #### CDP, IOCAL, PT, PTT, BMP, MG, MAIKEL, TSHX #### [place] [phone] Offline Cutter: Campos Escobedo MDLymphocytes/100 WBC (Bld)19 %Ozq71-74QdbnrSelect Medical Specialty Hospital - AkronComment on above:Performed By: #### CDP, IOCAL, PT, PTT, BMP, MG, MAIKEL, TSHX #### [address] [address] Offline Cutter: JEANINE Moran (RBC) [Entitic mass]29.8 xdDxrspu10.2-33.5 [facility] - AkronComment on above:Performed By: #### CDP, IOCAL, PT, PTT, BMP, MG, MAIKEL, TSHX #### [address] [address] Offline Cutter: JEANINE MoranC (RBC) [Mass/Vol]31.5 g/lOJglyun37.4-34.8 [facility] - AkronComment on above:Performed By: #### CDP, IOCAL, PT, PTT, BMP, MG, MAIKEL, TSHX #### [place] [address] Offline Cutter: RADHA Moran (RBC) [Entitic vol]94.4 pVCdrdqt29.6-102.9 [facility] - AkronComment on above:Performed By: #### CDP, IOCAL, PT, PTT, BMP, MG, MAIKEL, TSHX #### [facility]_ [address] [place] [address] Offline Cutter: PADMINI Moranonocytes (Bld) [#/Vol]0.70 10*3/uLNormal 0.10-1.20[facility] AkronComment on above:Performed By: #### CDP, IOCAL, PT, PTT, BMP, MG, MAIKEL, TSHX #### [facility]_ [address] [place] [address] Offline Cutter: PADMINI Moranonocytes/100 WBC (Bld)8 %Normal3-12[facility] - AkronComment on above:Performed By: #### CDP, IOCAL, PT, PTT, BMP, MG, MAIKEL, TSHX #### [facility]_ [address] [place] [address] Offline Cutter: Anne Marie Moranutrophil (Seg)65 %Nyzgpf24-27IzcomSelect Medical Specialty Hospital - AkronComment on above:Performed By: #### CDP, IOCAL, PT, PTT, BMP, MG, MAIKEL, TSHX #### [address] [address] Offline Cutter: Campos Escobedo MDNRBC Automated0.0 per 100 WBCNormal0.0[facility] - AkronComment on above:Performed By: #### CDP, IOCAL, PT, PTT, BMP, MG, MAIKEL, TSHX #### [facility]_ [address] [place] [address] Offline Cutter: Kemal Moran mean volume (Bld) [Entitic vol]8.7 fL Normal8.1-13.5[facility] - AkronComment on above:Performed By: #### CDP, IOCAL, PT, PTT, BMP, MG, MAIKEL, TSHX #### [address] [address] Offline Cutter: Sonia Morantemaribell (Bld) [#/Vol]576 10*3/[id number] [facility] - AkronComment on above:Performed By: #### CDP, IOCAL, PT, PTT, BMP, MG, MAIKEL, TSHX #### [facility]_ 16 [place] [address] Offline Cutter: LUZ MARIA MoranBC (Bld) [#/Vol]3.73 10*6/uLLow3.95-5.11Select [facility] Hospital - AkronComment on above:Performed By: #### CDP, IOCAL, PT, PTT, BMP, MG, MAIKEL, TSHX #### [facility] [address] [place] [address] Offline Cutter: MARC Moran (Bld) [#/Vol]9.0 10*3/uLNormal3.5-11.3[facility] Of GardenaComment on above:Performed By: #### CDP, IOCAL, PT, PTT, BMP, MG, MAIKEL, TSHX #### [facility] [address] [place] [address] Offline Cutter: Nenita Moran PerformedNOT REPORTEDNormalMercy Memorial Hospital Of GardenaComment on above:Performed By: #### CDP, IOCAL, PT, PTT, BMP, MG, MAIKEL, TSHX #### [facility] [address] [place] [address] Offline Cutter: Carlton Moran (Bld) [#/Vol]NOT REPORTEDNormalMerCommunity Hospital of Long BeachComment on above:Performed By: #### CDP, IOCAL, PT, PTT, BMP, MG, MAIKEL, TSHX #### [facility] [address] [place] [address] Offline Cutter: KEMI Moran morphology finding Nom (Bld)NOT REPORTED NormalSelect Medical Specialty Hospital - AkronComment on above:Performed By: #### CDP, IOCAL, PT, PTT, BMP, MG, MAIKEL, TSHX #### [facility] [address] [place] [address] Offline Cutter: MARC Moran MorphologyNOT REPORTEDNormalMerCommunity Hospital of Long BeachComment on above:Performed By: #### CDP, IOCAL, PT, PTT, BMP, MG, MAIKEL, TSHX #### [facility] [address] [place] [address] Offline Cutter: Warren Moran Ionicon 16-85-1876Dzsaxjx [Mass/Vol] 1.09 mmol/LLow1.13-1.33[facility] - AkronComment on above: Performed By: #### CDP, IOCAL, PT, PTT, BMP, MG, MAIKEL, TSHX #### [facility] [address] [place] [address] Offline Cutter: JULIEN Moranult,Aerobe/Anaerobeon 08-21-2019 Cult,Aerobe/AnaerobeSpecimen Description .HEART Special Requests .TISSUE Direct Exam NOT REPORTED Culture DUE TO THE SPECIMEN TYPE, THE ORDER WAS CANCELED AND REORDERED. PLEASE REFER TO: TISSUE CULTURE Report Status FINAL 08/21/2019NormalSelect Medical Specialty Hospital - AkronComment on above:Performed By: #### CDP, IOCAL, PT, PTT, BMP, MG, MAIKEL, TSHX #### [facility] [address] [place] [address] Offline Cutter: Campos Escobedo MDHistology [facility] [id number] [facility](NOTE) [id number] [facility] CONSULTING PATHOLOGISTS [facility] ANATOMIC PATHOLOGY [address] [place] [phone] NONGYNECOLOGICAL CYTOPATHOLOGY CONSULTATION Patient Name: TANYA BLAKE [facility] Rec: [id number] Path Number: [id number] Collected: 08/21/2019 Received: 08/21/2019 Reported: 08/22/2019 12:28 -- Diagnosis -- PERICARDIAL FLUID: NEGATIVE FOR MALIGNANCY. Jamel Hurtado Electronically Signed Out rdd/08/22/2019 Clinical Information Pericardial effusion. Source of Specimen 1: PERICARDIAL FLUID Gross Description PERICARDIAL FLUID 15.0 ml. red cloudy fluid. MICROSCOPIC DESCRIPTION Microscopic examination performed.[facility] – JacksonComment on above:Performed By: #### CDP, IOCAL, PT, PTT, BMP, MG, MAIKEL, TSHX #### [facility] [address] [place] [address] Offline Cutter: Nikko Morangnesiumon 81-83-6271Vcpugmvri [Mass/Vol]1.9 mg/dLNormal1.6-2.6[facility] Of GardenaComment on above:Performed By: #### CDP, IOCAL, PT, PTT, BMP, MG, MAIKEL, TSHX #### [facility] [address] [place] [address] [phone] Offline Cutter: Campos Escobedo MDNon-High School Social Science Teacher Cytologyon [id number] No:[id number] NormalSelect Medical Specialty Hospital - AkronComment on above:Performed By: #### CDP, IOCAL, PT, PTT, BMP, MG, MAIKEL, TSHX #### [facility] [address] [place] [address] [phone] Offline Cutter: VITOR Moranpecimen DescriptionPERICARDIAL FLUIDNormalSelect Medical Specialty Hospital - AkronComment on above:Performed By: #### CDP, IOCAL, PT, PTT, BMP, MG, MAIKEL, TSHX #### [facility] [address] [place] [address] [phone] Offline Cutter: Campos Escobedo MDOPERATIVE REPORTon [id number] REPORT [address] [phone] OPERATIVE REPORT PATIENT NAME: TANYA BLAKE : 1955 MED REC NO: [id number] ROOM: 1009 ACCOUNT NO: [id number] ADMIT DATE: 08/12/2019 PROVIDER: Erick Miles MD [...] effusion after she was taken to 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 ERICK MILES MD DD/Zonia_SSPAR_T Doc#: [id number] CC:NormalSelect Medical Specialty Hospital - AkronPTon [id number] Coag (PPP) [Relative time]1.0 {INR}[facility] – JacksonComment on above:Result Comment: Therapeutic Range: Moderate Anticoagulant Intensity: INR = 2.0-3.0 High Anticoagulant Intensity: INR = 2.5-3.5Performed By: #### CDP, IOCAL, PT, PTT, BMP, MG, MAIKEL, TSHX #### [facility] [address] [place] [address] Offline Cutter: AKASH Moran Coag (PPP) [Time]10.4 sNormal9.0-12.0[facility] Hospital - AkronComment on above:Performed By: #### CDP, IOCAL, PT, PTT, BMP, MG, MAIKEL, TSHX #### [facility] [address] [place] [address] Offline Cutter: Kayode Moran InorgGuson 82-74-2569Maxsjficky, Inorg.3.3 mg/dLNormal2.6-4.5[facility] Hospital - AkronComment on above: Performed By: #### CDP, IOCAL, PT, PTT, BMP, MG, MAIKEL, TSHX #### [address] [address] Offline Cutter: VITOR Moranurgical Pathologyon [id number] Pathology(NOTE) [id number] [facility] [employer] CONSULTING PATHOLOGISTS [facility] ANATOMIC PATHOLOGY [address] [place] [phone] SURGICAL PATHOLOGY CONSULTATION Patient Name: TANYA BLAKE [facility] Rec: [id number] Path Number: [id number] Collected: 08/21/2019 Received: 08/21/2019 Reported: 08/22/2019 13:12 -- Diagnosis -- Diagnosis pericardium, biopsy: Chronic inflammation and organizing fibrinous exudate. Negative for malignancy. Jamel Hurtado Electronically Signed Out rdd/08/22/2019 Clinical Information Pre-op Diagnosis: PERICARDIAL EFFUSION Operative Findings: PERICARDIUM Operation Performed: PERICARDIAL WINDOW CREATION Source of Specimen 1: PERICARDIUM Gross Description TANYA BLAKE, PERICARDIUM Received fresh for frozen section are rubbery fragments of pink tissue 1 x 1 x 0.3 cm. FSX 1 1cs. Intraoperative Diagnosis FSDX: Pericardium, heavy inflammation. (RDD, 0850) Microscopic Description Microscopic examination performed.[facility] – JacksonComment on above:Performed By: #### CDP, IOCAL, PT, PTT, BMP, MG, MAIKEL, TSHX #### [facility] [address] [place] [address] Offline Cutter: Campos Escobedo MDType + Screenon 02-92-2485Mguu + ScreenSample Expiration 08/23/2019,2359 Arm Band Number [id number] ABO/Rh(D) O POSITIVE Antibody Screen NEGATIVE Unit Number [id number] Blood Component Type Leukocyte Reduced Red Cell Unit Division 00 Status of Unit REL FROM ALLOC Transfusion Status OK TO TRANSFUSE Crossmatch Result COMPATIBLE Unit Number [id number] Blood Component Type Leukocyte Reduced Red Cell Unit Division 00 Status of Unit REL FROM ALLOC Transfusion Status OK TO TRANSFUSE Crossmatch Result COMPATIBLENormGrand Lake Joint Township District Memorial HospitalComment on above:Performed By: #### CDP, IOCAL, PT, PTT, BMP, MG, MAIKEL, TSHX #### [facility] [address] [place] [address] Offline Cutter: DAYANA Moran CHEST PORTABLEon [id number] CHEST PORTABLE EXAMINATION: ONE XRAY VIEW OF [...] Signed by: Jillian Delong MD 08/21/19 Final resultNormalMerCommunity Hospital of Long BeachAPTTon 48-79-1255fVLM Coag (Bld) [Time]25.5 eJqzjse86.5-30.5[facility] - AkronComment on above:Performed By: #### CDP, IOCAL, PT, PTT, BMP, MG, MAIKEL, TSHX #### [facility] [address] [place] [address] [phone] Offline Cutter: Nina Moran Metabolic Profon 08-20-2019(cont.)Normal [facility] - AkronComment on above:Result Comment: Average GFR for 60-69 years old: 85 mL/min/1.73sq m Chronic Kidney Disease: <60 mL/min/1.73sq m Kidney failure: <15 mL/min/1.73sq m eGFR calculated using average adult body mass. Additional eGFR calculator available at: http://www.Appuri.Classiphix/multiple_crcl_2012.htmPerformed By: #### CDP, IOCAL, PT, PTT, BMP, MG, MAIKEL, TSHX #### [facility] [address] [place] [address] Offline Cutter: Campos Escobedo MDAnion gap [Moles/Vol]11 mmol/LNormal9-17[facility] - AkronComment on above:Performed By: #### CDP, IOCAL, PT, PTT, BMP, MG, MAIKEL, TSHX #### [facility] [address] [place] [address] [phone] Offline Cutter: Campos Escobedo MDCalcium [Mass/Vol]8.6 mg/dLNormal8.6-10.4[facility] - AkronComment on above:Performed By: #### CDP, IOCAL, PT, PTT, BMP, MG, MAIKEL, TSHX #### [facility] [address] [place] [address] [phone] Offline Cutter: Campos Madoff, MDChloride [Moles/Vol]100 mmol/VFwwpqt54-790NfqzsSelect Medical Specialty Hospital - AkronComment on above:Performed By: #### CDP, IOCAL, PT, PTT, BMP, MG, MAIKEL, TSHX #### [facility] [address] [place] [address] Offline Cutter: Campos Escobedo MDCO2 [Moles/Vol]25 mmol/FUeskel55-87KfggkSelect Medical Specialty Hospital - AkronComment on above:Performed By: #### CDP, IOCAL, PT, PTT, BMP, MG, MAIKEL, TSHX #### [address] [address] Offline Cutter: JULIEN Moranreatinine [Mass/Vol]0.55 mg/dLNormal0.50-0.90 [facility] - AkronComment on above:Performed By: #### CDP, IOCAL, PT, PTT, BMP, MG, MAIKEL, TSHX #### [place] [address] Offline Cutter: Campos Escobedo MDGFR, Amer>60Normal>60[facility] - AkronComment on above:Performed By: #### CDP, IOCAL, PT, PTT, BMP, MG, MAIKEL, TSHX #### [address] [address] Offline Cutter: Campos Escobedo MDGFR,non Amer>60Normal>60[facility] - AkronComment on above:Performed By: #### CDP, IOCAL, PT, PTT, BMP, MG, MAIKEL, TSHX #### [address] [address] Offline Cutter: Campos Escobedo MDGlucose [Mass/Vol]199 mg/yOLmla33-91OrwofMemorial Medical CenterComment on above:Performed By: #### CDP, IOCAL, PT, PTT, BMP, MG, MAIKEL, TSHX #### [address] [address] Offline Cutter: CAROLINA Moranotassium [Moles/Vol]4.1 mmol/LNormal3.7-5.3 [facility] - AkronComment on above:Performed By: #### CDP, IOCAL, PT, PTT, BMP, MG, MAIKEL, TSHX #### [address] [address] Offline Cutter: VITOR Moranodium [Moles/Vol]136 mmol/FNkkvyq756-092HrqwlSelect Medical Specialty Hospital - AkronComment on above:Performed By: #### CDP, IOCAL, PT, PTT, BMP, MG, MAIKEL, TSHX #### [address] [address] Offline Cutter: Campos Escobedo MDUrea nitrogen [Mass/Vol]11 mg/dLNormal8-23[facility] - AkronComment on above:Performed By: #### CDP, IOCAL, PT, PTT, BMP, MG, MAIKEL, TSHX #### [address] [address] Offline Cutter: NITA Moran/JO ANN Arnett REPORTEDNormal9-20[facility] - AkronComment on above:Performed By: #### CDP, IOCAL, PT, PTT, BMP, MG, MAIKEL, TSHX #### [address] [address] Offline Cutter: VITOR Morantaging:NOT REPORTEDNormalSelect Medical Specialty Hospital - AkronComment on above:Performed By: #### CDP, IOCAL, PT, PTT, BMP, MG, MAIKEL, TSHX #### [address] [address] Offline Cutter: Campos Escobedo MDBlood Bank Specimenon [id number] Bank SpecimenNOT REPORTEDNormalSelect Medical Specialty Hospital - AkronCBC with Diffon 62-92-3286Gvh. Basophil0.09 k/uLNormal0.00-0.20[facility] Comment on above:Performed By: #### CDP, IOCAL, PT, PTT, BMP, MG, MAIKEL, TSHX #### [facility] [address] [place] [address] Offline Cutter: MDAbs. LuisaImm.Granulocyte0.09 k/uLNormal0.00-0.30[facility] - AkronComment on above:Performed By: #### CDP, IOCAL, PT, PTT, BMP, MG, MAIKEL, TSHX #### [facility] [address] [place] [address] Offline Cutter: Miriam Moran.Neutrophil (Seg)5.67 k/uLNormal1.50-8.10 [facility] - AkronComment on above:Performed By: #### CDP, IOCAL, PT, PTT, BMP, MG, MAIKEL, TSHX #### [facility] [address] [place] [address] Offline Cutter: Campos Escobedo MDBasophils/100 WBC (Bld)1 %Normal0-2MMemorial Medical CenterComment on above:Performed By: #### CDP, IOCAL, PT, PTT, BMP, MG, MAIKEL, TSHX #### [facility] [address] [place] [address] Offline Cutter: Campos Escobedo MDEosinophils (Bld) [#/Vol]0.56 10*3/uLHigh 0.00-0.44[facility] - AkronComment on above:Performed By: #### CDP, IOCAL, PT, PTT, BMP, MG, MAIKEL, TSHX #### [facility] [address] [place] [address] Offline Cutter: YARELI Moranosinophils/100 WBC (Bld)6 %High1-4[facility] - AkronComment on above:Performed By: #### CDP, IOCAL, PT, PTT, BMP, MG, MAIKEL, TSHX #### [place] [address] Offline Cutter: Campos Escobedo MDErythrocyte distribution width (RBC) [Ratio]12.6 %Fwzuzw00.8-14.4[facility] - AkronComment on above:Performed By: #### CDP, IOCAL, PT, PTT, BMP, MG, MAIKEL, TSHX #### [place] [address] Offline Cutter: Campos Escobedo MDHematocrit (Bld) [Volume fraction]35.6 %Low 36.3-47.1MMemorial Medical CenterComment on above:Performed By: #### CDP, IOCAL, PT, PTT, BMP, MG, MAIKEL, TSHX #### [place] [address] Offline Cutter: Campos Escobedo MDHemoglobin (Bld) [Mass/Vol]11.3 g/dLLow11.9-15.1 [facility] - AkronComment on above:Performed By: #### CDP, IOCAL, PT, PTT, BMP, MG, MAIKEL, TSHX #### [place] [address] Offline Cutter: Campos Escobedo MDImmature granulocytes (Bld) [#/Vol]1 %Pqco3NlbokSelect Medical Specialty Hospital - AkronComment on above:Performed By: #### CDP, IOCAL, PT, PTT, BMP, MG, MAIKEL, TSHX #### [place] [address] Offline Cutter: Campos Escobedo MDLymphocytes (Bld) [#/Vol]1.57 10*3/uLNormal 1.10-3.70[facility] - AkronComment on above:Performed By: #### CDP, IOCAL, PT, PTT, BMP, MG, MAIKEL, TSHX #### [address] [address] Offline Cutter: Leyla Moranmphocytes/100 WBC (Bld)18 %Ykw68-63TgthqSelect Medical Specialty Hospital - AkronComment on above:Performed By: #### CDP, IOCAL, PT, PTT, BMP, MG, MAIKEL, TSHX #### [place] [address] Offline Cutter: PADMINI MoranCH (RBC) [Entitic mass]30.5 cuXqrtsj29.2-33.5 [facility] - AkronComment on above:Performed By: #### CDP, IOCAL, PT, PTT, BMP, MG, MAIKEL, TSHX #### [place] [address] Offline Cutter: JEANINE MoranC (RBC) [Mass/Vol]31.7 g/pTYxupuz02.4-34.8 [facility] - AkronComment on above:Performed By: #### CDP, IOCAL, PT, PTT, BMP, MG, MAIKEL, TSHX #### [address] [address] Offline Cutter: PADMINI MoranCV (RBC) [Entitic vol]96.0 yNQhjetx17.6-102.9 [facility] - AkronComment on above:Performed By: #### CDP, IOCAL, PT, PTT, BMP, MG, MAIKEL, TSHX #### [place] [address] Offline Cutter: PADMINI Moranonocytes (Bld) [#/Vol]0.73 10*3/uLNormal 0.10-1.20[facility] - AkronComment on above:Performed By: #### CDP, IOCAL, PT, PTT, BMP, MG, MAIKEL, TSHX #### [address] [address] Offline Cutter: PADMINI Moranonocytes/100 WBC (Bld)8 %Normal3-12[facility] - AkronComment on above:Performed By: #### CDP, IOCAL, PT, PTT, BMP, MG, MAIKEL, TSHX #### [address] [address] Offline Cutter: Anne Marie Moranutrophil (Seg)65 %Izyyii74-03XjxnkSelect Medical Specialty Hospital - AkronComment on above:Performed By: #### CDP, IOCAL, PT, PTT, BMP, MG, MAIKEL, TSHX #### [address] [address] Offline Cutter: LONNY MoranBC Automated0.0 per 100 WBCNormal0.0[facility] - AkronComment on above:Performed By: #### CDP, IOCAL, PT, PTT, BMP, MG, MAIKEL, TSHX #### [address] [address] Offline Cutter: Kemal Moran mean volume (Bld) [Entitic vol]8.9 fL Normal8.1-13.5[facility] - AkronComment on above:Performed By: #### CDP, IOCAL, PT, PTT, BMP, MG, MAIKEL, TSHX #### [address] [address] Offline Cutter: Sonia Morantemaribell (Bld) [#/Vol]599 10*3/hEKcmo005-472 [facility] - AkronComment on above:Performed By: #### CDP, IOCAL, PT, PTT, BMP, MG, MAIKEL, TSHX #### [address] [address] Offline Cutter: KEMI Moran (Bld) [#/Vol]3.71 10*6/uLLow3.95-5.11[facility] Of GardenaComment on above:Performed By: #### CDP, IOCAL, PT, PTT, BMP, MG, MAIKEL, TSHX #### [facility] [address] [place] [address] Offline Cutter: MARC Moran (Bld) [#/Vol]8.7 10*3/uLNormal3.5-11.3[facility] Of GardenaComment on above:Performed By: #### CDP, IOCAL, PT, PTT, BMP, MG, MAIKEL, TSHX #### [facility] [address] [place] [address] Offline Cutter: Nenita Moran PerformedNOT REPORTEDNormalSelect Medical Specialty Hospital - AkronComment on above:Performed By: #### CDP, IOCAL, PT, PTT, BMP, MG, MAIKEL, TSHX #### [facility] [address] [place] [address] Offline Cutter: Carlton Moran (Bld) [#/Vol]NOT REPORTEDNormalSelect Medical Specialty Hospital - AkronComment on above:Performed By: #### CDP, IOCAL, PT, PTT, BMP, MG, MAIKEL, TSHX #### [facility] [address] [place] [address] Offline Cutter: KEMI Moran morphology finding Nom (Bld)NOT REPORTED NormalSelect Medical Specialty Hospital - AkronComment on above:Performed By: #### CDP, IOCAL, PT, PTT, BMP, MG, MAIKEL, TSHX #### [facility] [address] [place] [address] Offline Cutter: MARC Moran MorphologyNOT REPORTEDNormalSelect Medical Specialty Hospital - AkronComment on above:Performed By: #### CDP, IOCAL, PT, PTT, BMP, MG, MAIKEL, TSHX #### [address] [phone] Offline Cutter: JULIEN Moranalcium, Ionicon 88-02-9285Ouhrrht [Mass/Vol] 1.20 mmol/LNormal1.13-1.33[facility] - AkronComment on above: Performed By: #### CDP, IOCAL, PT, PTT, BMP, MG, MAIKEL, TSHX #### [place] [address] Offline Cutter: Campos Escobedo MDMagnesiumon 67-21-2883Jazyykstf [Mass/Vol]2.0 mg/dLNormal1.6-2.6[facility] Of GardenaComment on above:Performed By: #### CDP, IOCAL, PT, PTT, BMP, MG, MAIKEL, TSHX #### [place] [address] Offline Cutter: Mau Moran 09-16-4335PNV Coag (PPP) [Relative time]1.0 {INR}NormalSelect Medical Specialty Hospital - AkronComment on above:Result Comment: Therapeutic Range: Moderate Anticoagulant Intensity: INR = 2.0-3.0 High Anticoagulant Intensity: INR = 2.5-3.5Performed By: #### CDP, IOCAL, PT, PTT, BMP, MG, MAIKEL, TSHX #### [place] [address] Offline Cutter: AKASH Moran Coag (PPP) [Time]10.3 sNormal9.0-12.0[facility] - AkronComment on above:Performed By: #### CDP, IOCAL, PT, PTT, BMP, MG, MAIKEL, TSHX #### [place] [address] Offline Cutter: Kayode Moran Inorg.on 66-37-5217Shtotzoxcl, Inorg.3.4 mg/dLNormal2.6-4.5Mer[facility] Ogilvie Medical CenterComment on above: Performed By: #### CDP, IOCAL, PT, PTT, BMP, MG, MAIKEL, TSHX #### [facility] [address] [place] [address] Offline Cutter: Zahra Moran 28-26-3019cKSU Coag (Bld) [Time]26.3 s Skgral71.5-30.5[facility] - AkronComment on above:Performed By: #### CDP, IOCAL, PT, PTT, BMP, MG, MAIKEL, TSHX #### [facility] [address] [place], [place] [phone] Offline Cutter: Nina Moran Metabolic Profon 08-19-2019(cont.)Normal [facility] - AkronComment on above:Result Comment: Average GFR for 60-69 years old: 85 mL/min/1.73sq m Chronic Kidney Disease: <60 mL/min/1.73sq m Kidney failure: <15 mL/min/1.73sq m eGFR calculated using average adult body mass. Additional eGFR calculator available at: http://www.Appuri.Classiphix/multiple_crcl_2012.htmPerformed By: #### CDP, IOCAL, PT, PTT, BMP, MG, MAIKEL, TSHX #### [facility] [address] [place], [place] [phone] Offline Cutter: Daija Moran gap [Moles/Vol]12 mmol/LNormal9-17[facility] - AkronComment on above:Performed By: #### CDP, IOCAL, PT, PTT, BMP, MG, MAIKEL, TSHX #### [facility]_ [address] [place] [address] [phone] Offline Cutter: JULIEN Moranalcium [Mass/Vol]8.7 mg/dLNormal8.6-10.4[facility] - AkronComment on above:Performed By: #### CDP, IOCAL, PT, PTT, BMP, MG, MAIKEL, TSHX #### [facility] [address] [place] [address] Offline Cutter: JULIEN Moranhloride [Moles/Vol]101 mmol/BWzjrwa12-076IsnhqSelect Medical Specialty Hospital - AkronComment on above:Performed By: #### CDP, IOCAL, PT, PTT, BMP, MG, MAIKEL, TSHX #### [facility] [address] [place] [address] Offline Cutter: Campos Escobedo MDCO2 [Moles/Vol]24 mmol/KMhyklm60-16FolyiSelect Medical Specialty Hospital - AkronComment on above:Performed By: #### CDP, IOCAL, PT, PTT, BMP, MG, MAIKEL, TSHX #### [address] [address] Offline Cutter: JULIEN Moranreatinine [Mass/Vol]0.47 mg/dLLow0.50-0.90[facility] - AkronComment on above:Performed By: #### CDP, IOCAL, PT, PTT, BMP, MG, MAIKEL, TSHX #### [facility] [address] [place] [address] Offline Cutter: Campos Escobedo MDGFR, Amer>60Normal>60[facility] - AkronComment on above:Performed By: #### CDP, IOCAL, PT, PTT, BMP, MG, MAIKEL, TSHX #### [facility] [address] [place] [address] Offline Cutter: Capmos Escobedo MDGFR,non Amer>60Normal>60[facility] - AkronComment on above:Performed By: #### CDP, IOCAL, PT, PTT, BMP, MG, MAIKEL, TSHX #### [facility] [address] [place] [address] Offline Cutter: Campos Escobedo MDGlucose [Mass/Vol]200 mg/aAOzyc02-43Jxrnc [facility] Hospital Of GardenaComment on above:Performed By: #### CDP, IOCAL, PT, PTT, BMP, MG, MAIKEL, TSHX #### [facility] [address] [place] [address] Offline Cutter: CAROLINA Moranotassium [Moles/Vol]4.3 mmol/LNormal3.7-5.3 [facility] - AkronComment on above:Performed By: #### CDP, IOCAL, PT, PTT, BMP, MG, MAIKEL, TSHX #### [facility] [address] [place] [address] Offline Cutter: VITOR Moranodium [Moles/Vol]137 mmol/HFejuhm560-704IackhSelect Medical Specialty Hospital - AkronComment on above:Performed By: #### CDP, IOCAL, PT, PTT, BMP, MG, MAIKEL, TSHX #### [facility] [address] [place] [address] Offline Cutter: Campos Escobedo MDUrea nitrogen [Mass/Vol]9 mg/dLNormal8-23[facility] - AkronComment on above:Performed By: #### CDP, IOCAL, PT, PTT, BMP, MG, MAIKEL, TSHX #### [facility] [address] [place] [address] Offline Cutter: NITA Moran/CRE RatioNOT REPORTEDNormal9-20[facility] - AkronComment on above:Performed By: #### CDP, IOCAL, PT, PTT, BMP, MG, MAIKEL, TSHX #### [facility] [address] [place] [address] Offline Cutter: VITOR Morantaging:NOT REPORTEDNormalSelect Medical Specialty Hospital - AkronComment on above:Performed By: #### CDP, IOCAL, PT, PTT, BMP, MG, MAIKEL, TSHX #### [facility] [address] [place] [address] Offline Cutter: Campos Escobedo [facility] with Diffon [id number]. Basophil0.07 k/uL Normal0.00-0.20[facility] - AkronComment on above:Performed By: #### CDP, IOCAL, PT, PTT, BMP, MG, MAIKEL, TSHX #### [place] [address] Offline Cutter: MDAbs. LuisaImm.Granulocyte0.09 k/uLNormal0.00-0.30[facility] [place]ronComment on above:Performed By: #### CDP, IOCAL, PT, PTT, BMP, MG, MAIKEL, TSHX #### [place] [address] Offline Cutter: Miriam Moran.Neutrophil (Seg)5.72 k/uLNormal1.50-8.10 [facility] [place]ronComment on above:Performed By: #### CDP, IOCAL, PT, PTT, BMP, MG, MAIKEL, TSHX #### [place] [address] Offline Cutter: Campos Escobedo MDBasophils/100 WBC (Bld)1 %Normal0-2MMemorial Medical CenterComment on above:Performed By: #### CDP, IOCAL, PT, PTT, BMP, MG, MAIKEL, TSHX #### [facility]_ [address] [place] [address] Offline Cutter: Campos Escobedo MDEosinophils (Bld) [#/Vol]0.49 10*3/uLHigh 0.00-0.44[facility] - AkronComment on above:Performed By: #### CDP, IOCAL, PT, PTT, BMP, MG, MAIKEL, TSHX #### [facility]_ [address] [place] [address] Offline Cutter: Campos Madoff, MDEosinophils/100 WBC (Bld)6 %High1-4[facility] - AkronComment on above:Performed By: #### CDP, IOCAL, PT, PTT, BMP, MG, MAIKEL, TSHX #### [address] [address] Offline Cutter: Campos Escobedo MDErythrocyte distribution width (RBC) [Ratio]12.7 %Niqvni46.8-14.4[facility] - AkronComment on above:Performed By: #### CDP, IOCAL, PT, PTT, BMP, MG, MAIKEL, TSHX #### [place] [address] Offline Cutter: Campos Escobedo MDHematocrit (Bld) [Volume fraction]37.4 %Normal 36.3-47.1MMemorial Medical CenterComment on above:Performed By: #### CDP, IOCAL, PT, PTT, BMP, MG, MAIKEL, TSHX #### [place] [address] Offline Cutter: Campos Escobedo MDHemoglobin (Bld) [Mass/Vol]11.7 g/dLLow11.9-15.1 [facility] - AkronComment on above:Performed By: #### CDP, IOCAL, PT, PTT, BMP, MG, MAIKEL, TSHX #### [place] [address] Offline Cutter: Campos Escobedo MDImmature granulocytes (Bld) [#/Vol]1 %Iglt2PcgadSelect Medical Specialty Hospital - AkronComment on above:Performed By: #### CDP, IOCAL, PT, PTT, BMP, MG, MAIKEL, TSHX #### [address] [address] Offline Cutter: Campos Escobedo MDLymphocytes (Bld) [#/Vol]1.24 10*3/uLNormal 1.10-3.70[facility] - AkronComment on above:Performed By: #### CDP, IOCAL, PT, PTT, BMP, MG, MAIKEL, TSHX #### [facility]_ [address] [place] [address] Offline Cutter: Leyla Moranmphocytes/100 WBC (Bld)15 %Yyb25-56WucalSelect Medical Specialty Hospital - AkronComment on above:Performed By: #### CDP, IOCAL, PT, PTT, BMP, MG, MAIKEL, TSHX #### [place] [address] Offline Cutter: JEANINE Moran (RBC) [Entitic mass]30.2 pqNpmzbr76.2-33.5 [facility] - AkronComment on above:Performed By: #### CDP, IOCAL, PT, PTT, BMP, MG, MAIKEL, TSHX #### [facility]_ [address] [place] [address] Offline Cutter: JEANINE MoranC (RBC) [Mass/Vol]31.3 g/lIMozrlf42.4-34.8 [facility] - AkronComment on above:Performed By: #### CDP, IOCAL, PT, PTT, BMP, MG, MAIKEL, TSHX #### [place] [address] Offline Cutter: PADMINI MoranCV (RBC) [Entitic vol]96.6 cEAvpjpu70.6-102.9 [facility] - AkronComment on above:Performed By: #### CDP, IOCAL, PT, PTT, BMP, MG, MAIKEL, TSHX #### [facility]_ [address] [place] [address] Offline Cutter: PADMINI Moranonocytes (Bld) [#/Vol]0.72 10*3/uLNormal 0.10-1.20[facility] - AkronComment on above:Performed By: #### CDP, IOCAL, PT, PTT, BMP, MG, MAIKEL, TSHX #### [facility]_ [address] [place] [address] Offline Cutter: PADMINI Moranonocytes/100 WBC (Bld)9 %Normal3-12[facility] - AkronComment on above:Performed By: #### CDP, IOCAL, PT, PTT, BMP, MG, MAIKEL, TSHX #### [address] [address] Offline Cutter: Anne Marie Moranutrophil (Seg)69 %Ufqv64-18TfpalSelect Medical Specialty Hospital - AkronComment on above:Performed By: #### CDP, IOCAL, PT, PTT, BMP, MG, MAIKEL, TSHX #### [address] [address] Offline Cutter: Campos Escobedo MDNRBC Automated0.0 per 100 WBCNormal0.0[facility] - AkronComment on above:Performed By: #### CDP, IOCAL, PT, PTT, BMP, MG, MAIKEL, TSHX #### [facility]_ [address] [place] [address] Offline Cutter: Kemal Moran mean volume (Bld) [Entitic vol]8.6 fL Normal8.1-13.5[facility] - AkronComment on above:Performed By: #### CDP, IOCAL, PT, PTT, BMP, MG, MAIKEL, TSHX #### [facility]_ [address] [place] [address] Offline Cutter: Carlton Moran (Bld) [#/Vol]588 10*3/qGFftl055-664 [facility] - AkronComment on above:Performed By: #### CDP, IOCAL, PT, PTT, BMP, MG, MAIKEL, TSHX #### [facility]_ [address] [place] [address] Offline Cutter: KEMI Moran (Bld) [#/Vol]3.87 10*6/uLLow3.95-5.11[facility] Of GardenaComment on above:Performed By: #### CDP, IOCAL, PT, PTT, BMP, MG, MAIKEL, TSHX #### [facility] [address] [place] [address] Offline Cutter: MARC Moran (Bld) [#/Vol]8.3 10*3/uLNormal3.5-11.3[facility] Of GardenaComment on above:Performed By: #### CDP, IOCAL, PT, PTT, BMP, MG, MAIKEL, TSHX #### [facility] [address] [place] [address] Offline Cutter: Nenita Moran PerformedNOT REPORTEDNormalSelect Medical Specialty Hospital - AkronComment on above:Performed By: #### CDP, IOCAL, PT, PTT, BMP, MG, MAIKEL, TSHX #### [facility] [address] [place] [address] Offline Cutter: Carlton Moran (Bld) [#/Vol]NOT REPORTEDNormalSelect Medical Specialty Hospital - AkronComment on above:Performed By: #### CDP, IOCAL, PT, PTT, BMP, MG, MAIKEL, TSHX #### [facility]_ [address] [place] [address] Offline Cutter: KEMI Moran morphology finding Nom (Bld)NOT REPORTED NormalSelect Medical Specialty Hospital - AkronComment on above:Performed By: #### CDP, IOCAL, PT, PTT, BMP, MG, MAIKEL, TSHX #### [facility]_ [address] [place] [address] Offline Cutter: MARC Moran MorphologyNOT REPORTEDNormalSelect Medical Specialty Hospital - AkronComment on above:Performed By: #### CDP, IOCAL, PT, PTT, BMP, MG, MAIKEL, TSHX #### [facility] [address] [place] [address] [phone] Offline Cutter: JULIEN Moranalcium, Ionicon [phone] [Mass/Vol] 0.99 mmol/LLow1.13-1.33[facility] - AkronComment on above: Performed By: #### CDP, IOCAL, PT, PTT, BMP, MG, MAIKEL, TSHX #### [facility] [address] [place] [address] [phone] Offline Cutter: Campos Escobedo MDHemoglobin A1Con [id number] (Bld) [Mass fraction]7.4 %High4.0-6.0[facility] - AkronComment on above: Performed By: #### CDP, IOCAL, PT, PTT, BMP, MG, MAIKEL, TSHX #### [address] [address] Offline Cutter: Campos Escobedo MDHbA1c (Bld) [Mass fraction]166 mg/dLNormalSelect Medical Specialty Hospital - AkronComment on above:Result Comment: The ADA and AACC recommend providing the estimated average glucose result to permit better patient understanding of their HBA1c result.Performed By: #### CDP, IOCAL, PT, PTT, BMP, MG, AMIKEL, TSHX #### [address] [address] Offline Cutter: Campos Escobedo MDInf Dis Interventionon [id number]:IV to PONormalSelect Medical Specialty Hospital - AkronComment on above:Performed By: #### CDP, IOCAL, PT, PTT, BMP, MG, MAIKEL, TSHX #### [facility] [address] [place] [address] [phone] Offline Cutter: Nikko Morangnesiumon [id number] [Mass/Vol]2.2 mg/dLNormal1.6-2.6[facility] Of GardenaComment on above:Performed By: #### CDP, IOCAL, PT, PTT, BMP, MG, MAIKEL, TSHX #### [facility]_ [address] [place] [address] Offline Cutter: Mau Moran [phone] Coag (PPP) [Relative time]0.9 {INR}NormalSelect Medical Specialty Hospital - AkronComment on above:Result Comment: Therapeutic Range: Moderate Anticoagulant Intensity: INR = 2.0-3.0 High Anticoagulant Intensity: INR = 2.5-3.5Performed By: #### CDP, IOCAL, PT, PTT, BMP, MG, MAIKEL, TSHX #### [facility]_ [address] [place], [place] [phone] Offline Cutter: AKASH Moran Coag (PPP) [Time]10.0 sNormal9.0-12.0[facility] - AkronComment on above:Performed By: #### CDP, IOCAL, PT, PTT, BMP, MG, MAIKEL, TSHX #### [place] [address] Offline Cutter: Kayode Moran Inorg.on [id number], Inorg.3.3 mg/dLNormal2.6-4.5[facility] - AkronComment on above: Performed By: #### CDP, IOCAL, PT, PTT, BMP, MG, MAIKEL, TSHX #### [facility]_ [address] [place] [address] Offline Cutter: Zahra Moran [phone] Coag (Bld) [Time]24.7 s Gpdobx08.5-30.5[facility] - AkronComment on above:Performed By: #### CDP, IOCAL, PT, PTT, BMP, MG, MAIKEL, TSHX #### [facility]_ [address] [place] [address] [phone] Offline Cutter: Nina Moran Metabolic Profon 08-18-2019(cont.)Normal [facility] - AkronComment on above:Result Comment: Average GFR for 60-69 years old: 85 mL/min/1.73sq m Chronic Kidney Disease: <60 mL/min/1.73sq m Kidney failure: <15 mL/min/1.73sq m eGFR calculated using average adult body mass. Additional eGFR calculator available at: http://www.[employer]/multiple_crcl_2012.htmPerformed By: #### CDP, IOCAL, PT, PTT, BMP, MG, MAIKEL, TSHX #### [address] [address] Offline Cutter: Campos Escobedo MDAnion gap [Moles/Vol]12 mmol/LNormal9-17[facility] - AkronComment on above:Performed By: #### CDP, IOCAL, PT, PTT, BMP, MG, MAIKEL, TSHX #### [place] [address] Offline Cutter: Campos Escobedo MDCalcium [Mass/Vol]8.9 mg/dLNormal8.6-10.4[facility] - AkronComment on above:Performed By: #### CDP, IOCAL, PT, PTT, BMP, MG, MAIKEL, TSHX #### [address] [address] Offline Cutter: JULIEN Moranhloride [Moles/Vol]98 mmol/KQpfzho72-069CltgwSelect Medical Specialty Hospital - AkronComment on above:Performed By: #### CDP, IOCAL, PT, PTT, BMP, MG, MAIKEL, TSHX #### [address] [address] Offline Cutter: Campos Escobedo MDCO2 [Moles/Vol]26 mmol/XCmarig19-97IgrraSelect Medical Specialty Hospital - AkronComment on above:Performed By: #### CDP, IOCAL, PT, PTT, BMP, MG, MAIKEL, TSHX #### [address] [address] Offline Cutter: JULIEN Moranreatinine [Mass/Vol]0.51 mg/dLNormal0.50-0.90 [facility] - AkronComment on above:Performed By: #### CDP, IOCAL, PT, PTT, BMP, MG, MAIKEL, TSHX #### [address] [address] Offline Cutter: Campos Escobedo MDGFR, Amer>60Normal>60[facility] - AkronComment on above:Performed By: #### CDP, IOCAL, PT, PTT, BMP, MG, MAIKEL, TSHX #### [address] [address] Offline Cutter: CHANDA Moran,non Amer>60Normal>60MerCommunity Hospital of Long BeachComment on above:Performed By: #### CDP, IOCAL, PT, PTT, BMP, MG, MAIKEL, TSHX #### [address] [address] Offline Cutter: Campos Escobedo MDGlucose [Mass/Vol]206 mg/nVPqdo49-03HdkljMemorial Medical CenterComment on above:Performed By: #### CDP, IOCAL, PT, PTT, BMP, MG, MAIKEL, TSHX #### [address] [address] Offline Cutter: CAROLINA Moranotassium [Moles/Vol]4.8 mmol/LNormal3.7-5.3 [facility] - AkronComment on above:Result Comment: SPECIMEN SLIGHTLY HEMOLYZED, RESULTS MAY BE ADVERSELY AFFECTED.Performed By: #### CDP, IOCAL, PT, PTT, BMP, MG, MAIKEL, TSHX #### [address] [address] Offline Cutter: VITOR Moranodium [Moles/Vol]136 mmol/BZykdht593-431KiydqSelect Medical Specialty Hospital - AkronComment on above:Performed By: #### CDP, IOCAL, PT, PTT, BMP, MG, MAIKEL, TSHX #### [facility] [address] [place] [address] Offline Cutter: Rl Moran nitrogen [Mass/Vol]8 mg/dLNormal8-23[facility] - AkronComment on above:Performed By: #### CDP, IOCAL, PT, PTT, BMP, MG, MAIKEL, TSHX #### [facility] [address] [place] [address] Offline Cutter: NITA Moran/CRE JuanOT REPORTEDNormal9-20[facility] - AkronComment on above:Performed By: #### CDP, IOCAL, PT, PTT, BMP, MG, MAIKEL, TSHX #### [facility] [address] [place] [address] Offline Cutter: VITOR Morantaging:NOT REPORTEDNormalSelect Medical Specialty Hospital - AkronComment on above:Performed By: #### CDP, IOCAL, PT, PTT, BMP, MG, MAIKEL, TSHX #### [facility] [address] [place] [address] Offline Cutter: Campos Escobedo [facility] with Diffon [id number]. Basophil0.08 k/uL Normal0.00-0.20[facility] - AkronComment on above:Performed By: #### CDP, IOCAL, PT, PTT, BMP, MG, MAIKEL, TSHX #### [facility] [address] [place] [address] Offline Cutter: Miriam Moran.Imm.Granulocyte0.08 k/uLNormal0.00-0.30[facility] - AkronComment on above:Performed By: #### CDP, IOCAL, PT, PTT, BMP, MG, MAIKEL, TSHX #### [address] [address] Offline Cutter: Miriam Moran.Neutrophil (Seg)6.32 k/uLNormal1.50-8.10 [facility] - AkronComment on above:Performed By: #### CDP, IOCAL, PT, PTT, BMP, MG, MAIKEL, TSHX #### [address] [address] Offline Cutter: Campos Escobedo MDBasophils/100 WBC (Bld)1 %Normal0-2MMemorial Medical CenterComment on above:Performed By: #### CDP, IOCAL, PT, PTT, BMP, MG, MAIKEL, TSHX #### [place] [address] Offline Cutter: Campos Escobedo MDEosinophils (Bld) [#/Vol]0.43 10*3/uLNormal 0.00-0.44[facility] AkronComment on above:Performed By: #### CDP, IOCAL, PT, PTT, BMP, MG, MAIKEL, TSHX #### [address] [address] Offline Cutter: Campos Escobedo MDEosinophils/100 WBC (Bld)5 %High1-4[facility] - AkronComment on above:Performed By: #### CDP, IOCAL, PT, PTT, BMP, MG, MAIKEL, TSHX #### [address] [address] Offline Cutter: Campos Escobedo MDErythrocyte distribution width (RBC) [Ratio]12.7 %Ynqozi72.8-14.4[facility] - AkronComment on above:Performed By: #### CDP, IOCAL, PT, PTT, BMP, MG, MAIKEL, TSHX #### [facility] [address] Offline Cutter: Campos Escobedo MDHematocrit (Bld) [Volume fraction]36.6 %Normal 36.3-47.1MMemorial Medical CenterComment on above:Performed By: #### CDP, IOCAL, PT, PTT, BMP, MG, MAIKEL, TSHX #### [address] [address] Offline Cutter: Campos Escobedo MDHemoglobin (Bld) [Mass/Vol]11.7 g/dLLow11.9-15.1 [facility] AkronComment on above:Performed By: #### CDP, IOCAL, PT, PTT, BMP, MG, MAIKEL, TSHX #### [address] [address] Offline Cutter: Campos Escobedo MDImmature granulocytes (Bld) [#/Vol]1 %Brpj4EkvsqSelect Medical Specialty Hospital - AkronComment on above:Performed By: #### CDP, IOCAL, PT, PTT, BMP, MG, MAIKEL, TSHX #### [address] [address] Offline Cutter: Leyla Moranmphocytes (Bld) [#/Vol]1.17 10*3/uLNormal 1.10-3.70[facility] - AkronComment on above:Performed By: #### CDP, IOCAL, PT, PTT, BMP, MG, MAIKEL, TSHX #### [address] [address] Offline Cutter: Swathi Moranhocytes/100 WBC (Bld)13 %Hul35-60OxozhSelect Medical Specialty Hospital - AkronComment on above:Performed By: #### CDP, IOCAL, PT, PTT, BMP, MG, MAIKEL, TSHX #### [facility]_ [address] [place] [address] Offline Cutter: PADIMNI MoranCH (RBC) [Entitic mass]31.0 caEueukb33.2-33.5 [facility] AkronComment on above:Performed By: #### CDP, IOCAL, PT, PTT, BMP, MG, MAIKEL, TSHX #### [address] [address] Offline Cutter: JEANINE MoranC (RBC) [Mass/Vol]32.0 g/pXDdxnfr09.4-34.8 [facility] AkronComment on above:Performed By: #### CDP, IOCAL, PT, PTT, BMP, MG, MAIKEL, TSHX #### [place] [address] Offline Cutter: PADMINI MoranCV (RBC) [Entitic vol]97.1 jKQpcpsi13.6-102.9 [facility] - AkronComment on above:Performed By: #### CDP, IOCAL, PT, PTT, BMP, MG, MAIKEL, TSHX #### [place] [address] Offline Cutter: PADMINI Moranonocytes (Bld) [#/Vol]0.71 10*3/uLNormal 0.10-1.20[facility] AkronComment on above:Performed By: #### CDP, IOCAL, PT, PTT, BMP, MG, MAIKEL, TSHX #### [place] [address] Offline Cutter: PADMINI Moranonocytes/100 WBC (Bld)8 %Normal3-12[facility] - AkronComment on above:Performed By: #### CDP, IOCAL, PT, PTT, BMP, MG, MAIKEL, TSHX #### [address] [address] Offline Cutter: Campos Escobedo MDNeutrophil (Seg)72 %Jbht20-20EgzxgSelect Medical Specialty Hospital - AkronComment on above:Performed By: #### CDP, IOCAL, PT, PTT, BMP, MG, MAIKEL, TSHX #### [facility] [address] [place] [address] Offline Cutter: KAREN Moran Automated0.0 per 100 WBCNormal0.0[facility] - AkronComment on above:Performed By: #### CDP, IOCAL, PT, PTT, BMP, MG, MAIKEL, TSHX #### [facility] [address] [place] [address] Offline Cutter: Kemal Moran mean volume (Bld) [Entitic vol]8.8 fL Normal8.1-13.5[facility] - AkronComment on above:Performed By: #### CDP, IOCAL, PT, PTT, BMP, MG, MAIKEL, TSHX #### [facility] [address] [place] [address] Offline Cutter: Carlton Moran (Bld) [#/Vol]612 10*3/fCHfrn618-377 [facility] AkronComment on above:Performed By: #### CDP, IOCAL, PT, PTT, BMP, MG, MAIKEL, TSHX #### [facility]_ [address] [place] [address] Offline Cutter: KEMI Moran (Bld) [#/Vol]3.77 10*6/uLLow3.95-5.11[facility] AkronComment on above:Performed By: #### CDP, IOCAL, PT, PTT, BMP, MG, MAIKEL, TSHX #### [facility] [address] [place] [address] Offline Cutter: MARC Moran (Bld) [#/Vol]8.8 10*3/uLNormal3.5-11.3MMemorial Medical CenterComment on above:Performed By: #### CDP, IOCAL, PT, PTT, BMP, MG, MAIKEL, TSHX #### [facility] [address] [place] [address] Offline Cutter: Nenita Moran Diff PerformedNOT REPORTEDNormalSelect Medical Specialty Hospital - AkronComment on above:Performed By: #### CDP, IOCAL, PT, PTT, BMP, MG, MAIKEL, TSHX #### [facility] [address] [place] [address] Offline Cutter: CAROLINA Moranlatelets (Bld) [#/Vol]NOT REPORTEDNormalSelect Medical Specialty Hospital - AkronComment on above:Performed By: #### CDP, IOCAL, PT, PTT, BMP, MG, MAIKEL, TSHX #### [facility] [address] [place] [address] Offline Cutter: KEMI Moran morphology finding Nom (Bld)NOT REPORTED [facility] Center – JacksonComment on above:Performed By: #### CDP, IOCAL, PT, PTT, BMP, MG, MAIKEL, TSHX #### [facility] [address] [place] [address] Offline Cutter: MARC Moran MorphologyNOT REPORTEDNoClinton Memorial HospitalComment on above:Performed By: #### CDP, IOCAL, PT, PTT, BMP, MG, MAIKEL, TSHX #### [facility]_ [address] [place] [address] Offline Cutter: JULIEN Moranalcium, Ionicon [id number] [Mass/Vol] 1.14 mmol/LNormal1.13-1.33[facility] - AkronComment on above: Performed By: #### CDP, TROPI, BMP, CRP, SED #### [facility] [address] [place] [address] Offline Cutter: Nikko Morangnesiumon [phone] [Mass/Vol]2.1 mg/dLNormal1.6-2.6[facility] Of GardenaComment on above:Performed By: #### CDP, IOCAL, PT, PTT, BMP, MG, MAIKEL, TSHX #### [facility]_ [address] [place] [phone] Offline Cutter: Mau Moran [phone] Coag (PPP) [Relative time]1.0 {INR}NormalSelect Medical Specialty Hospital - AkronComment on above:Result Comment: Therapeutic Range: Moderate Anticoagulant Intensity: INR = 2.0-3.0 High Anticoagulant Intensity: INR = 2.5-3.5Performed By: #### CDP, IOCAL, PT, PTT, BMP, MG, MAIKEL, TSHX #### [place] [phone] Offline Cutter: AKASH Moran Coag (PPP) [Time]10.3 sNormal9.0-12.0[facility] - AkronComment on above:Performed By: #### CDP, IOCAL, PT, PTT, BMP, MG, MAIKEL, TSHX #### [facility]_ [address] [place], [place] [phone] Offline Cutter: Kayode Moran Inorg.on 66-22-3330Qljaznrxob, Inorg.3.4 mg/dLNormal2.6-4.5[facility] - AkronComment on above: Performed By: #### CDP, IOCAL, PT, PTT, BMP, MG, MAIKEL, TSHX #### [place] [phone] Offline Cutter: Zahra Moran [phone] Coag (Bld) [Time]26.5 s Wvuqkq93.5-30.5[facility] - AkronComment on above:Performed By: #### CDP, TROPI, BMP, CRP, SED #### [facility] [address] [place] [address] Offline Cutter: Nina Moran Metabolic Profon 08-17-2019(cont.)Normal [facility] - AkronComment on above:Result Comment: Average GFR for 60-69 years old: 85 mL/min/1.73sq m Chronic Kidney Disease: <60 mL/min/1.73sq m Kidney failure: <15 mL/min/1.73sq m eGFR calculated using average adult body mass. Additional eGFR calculator available at: http://www.[employer]/multiple_crcl_2012.htmPerformed By: #### CDP, TROPI, BMP, CRP, SED #### [facility] [address] [place] [address] Offline Cutter: Campos Escobedo MDAnion gap [Moles/Vol]11 mmol/LNormal9-17[facility] - AkronComment on above:Performed By: #### CDP, TROPI, BMP, CRP, SED #### [facility] [address] [place] [address] Offline Cutter: Campos Escobedo MDCalcium [Mass/Vol]8.6 mg/dLNormal8.6-10.4[facility] - AkronComment on above:Performed By: #### CDP, TROPI, BMP, CRP, SED #### [facility] [address] [place] [address] Offline Cutter: Campos Escobedo MDChloride [Moles/Vol]101 mmol/TPuqfyt78-938UivlmSelect Medical Specialty Hospital - AkronComment on above:Performed By: #### CDP, TROPI, BMP, CRP, SED #### [facility] [address] [place] [address] Offline Cutter: Campos Escobedo MDCO2 [Moles/Vol]27 mmol/DKogukt01-62KkoqfSelect Medical Specialty Hospital - AkronComment on above:Performed By: #### CDP, TROPI, BMP, CRP, SED #### [facility]_ [address] [place] [address] Offline Cutter: JULIEN Moranreatinine [Mass/Vol]0.57 mg/dLNormal0.50-0.90 [facility] - AkronComment on above:Performed By: #### CDP, TROPI, BMP, CRP, SED #### [facility] [address] [place] [address] Offline Cutter: Campos Escobedo MDGFR, Amer>60Normal>60[facility] - AkronComment on above:Performed By: #### CDP, TROPI, BMP, CRP, SED #### [facility] [address] [place] [address] Offline Cutter: Campos Escobedo MDGFR,non Amer>60Normal>60[facility] - AkronComment on above:Performed By: #### CDP, TROPI, BMP, CRP, SED #### [facility] [address] [place] [address] Offline Cutter: Campos Escobedo MDGlucose [Mass/Vol]178 mg/lXIjly24-30VugypMemorial Medical CenterComment on above:Performed By: #### CDP, TROPI, BMP, CRP, SED #### [facility] [address] [place] [address] Offline Cutter: Campos Escobedo MDPotassium [Moles/Vol]4.1 mmol/LNormal3.7-5.3 [facility] - AkronComment on above:Performed By: #### CDP, TROPI, BMP, CRP, SED #### [facility] [address] [place] [address] Offline Cutter: Campos Escobedo MDSodium [Moles/Vol]139 mmol/[id number] Medical Specialty Hospital - AkronComment on above:Performed By: #### CDP, TROPI, BMP, CRP, SED #### [facility] [address] [place] [id number] Offline Cutter: Rl Moran nitrogen [Mass/Vol]10 mg/dLNormal8-23[facility] [place]ronComment on above:Performed By: #### CDP, TROPI, BMP, CRP, SED #### [facility] [address] [place] [id number] Offline Cutter: NITA Moran/CRE RatioNOT REPORTEDNormal9-20[facility] [place]ronComment on above:Performed By: #### CDP, TROPI, BMP, CRP, SED #### [facility]_ [address] [place] [id number] Offline Cutter: VITOR Morantaging:NOT REPORTEDNormalSelect Medical [facility] - AkronComment on above:Performed By: #### CDP, TROPI, BMP, CRP, SED #### [facility]_ [address] [place] [address] Offline Cutter: Campos Escobedo [facility] with Diffon [id number]. Basophil0.07 k/uL Normal0.00-0.20[facility] - AkronComment on above:Performed By: #### CDP, TROPI, BMP, CRP, SED #### [facility] [address] [place] [address] Offline Cutter: MDAbs. LuisaImm.Granulocyte0.11 k/uLNormal0.00-0.30[facility] - AkronComment on above:Performed By: #### CDP, TROPI, BMP, CRP, SED #### [facility] [address] [place] [address] Offline Cutter: Miriam Morna.Neutrophil (Seg)6.28 k/uLNormal1.50-8.10 [facility] AkronComment on above:Performed By: #### CDP, TROPI, BMP, CRP, SED #### [facility] [address] [place] [address] Offline Cutter: Campos Escobedo MDBasophils/100 WBC (Bld)1 %Normal0-2MMemorial Medical CenterComment on above:Performed By: #### CDP, TROPI, BMP, CRP, SED #### [address] [address] Offline Cutter: Campos Escobedo MDEosinophils (Bld) [#/Vol]0.43 10*3/uLNormal 0.00-0.44[facility] AkronComment on above:Performed By: #### CDP, TROPI, BMP, CRP, SED #### [address] [address] Offline Cutter: Campos Escobedo MDEosinophils/100 WBC (Bld)5 %High1-4[facility] - AkronComment on above:Performed By: #### CDP, TROPI, BMP, CRP, SED #### [place] [address] Offline Cutter: Campos Escobedo MDErythrocyte distribution width (RBC) [Ratio]12.7 %Rjhpwx70.8-14.4[facility] AkronComment on above:Performed By: #### CDP, TROPI, BMP, CRP, SED #### [place] [address] Offline Cutter: Campos Escobedo MDHematocrit (Bld) [Volume fraction]33.9 %Low 36.3-47.1MMemorial Medical CenterComment on above:Performed By: #### CDP, TROPI, BMP, CRP, SED #### [facility]_ [address] [place] [address] Offline Cutter: Campos Escobedo MDHemoglobin (Bld) [Mass/Vol]10.6 g/dLLow11.9-15.1 [facility] AkronComment on above:Performed By: #### CDP, TROPI, BMP, CRP, SED #### [address] [address] Offline Cutter: Campos Escobedo MDImmature granulocytes (Bld) [#/Vol]1 %Okcr2KkqgaSelect Medical Specialty Hospital - AkronComment on above:Performed By: #### CDP, TROPI, BMP, CRP, SED #### [address] [address] Offline Cutter: Leyla Moranmphocytes (Bld) [#/Vol]1.70 10*3/uLNormal 1.10-3.70[facility] - AkronComment on above:Performed By: #### CDP, TROPI, BMP, CRP, SED #### [address] [address] Offline Cutter: Swathi Moranhocytes/100 WBC (Bld)18 %Fod49-20KhvbeSelect Medical Specialty Hospital - AkronComment on above:Performed By: #### CDP, TROPI, BMP, CRP, SED #### [address] [address] Offline Cutter: JEANINE Moran (RBC) [Entitic mass]30.3 kvLoqqhh47.2-33.5 [facility] - AkronComment on above:Performed By: #### CDP, TROPI, BMP, CRP, SED #### [facility]_ [address] [place] [address] Offline Cutter: JEANINE MoranC (RBC) [Mass/Vol]31.3 g/wLByagfp01.4-34.8 [facility] AkronComment on above:Performed By: #### CDP, TROPI, BMP, CRP, SED #### [address] [address] Offline Cutter: PADMINI MoranCV (RBC) [Entitic vol]96.9 mUZwdnec32.6-102.9 [facility] AkronComment on above:Performed By: #### CDP, TROPI, BMP, CRP, SED #### [address] [address] Offline Cutter: PADMINI Moranonocytes (Bld) [#/Vol]0.98 10*3/uLNormal 0.10-1.20[facility] AkronComment on above:Performed By: #### CDP, TROPI, BMP, CRP, SED #### [address] [address] Offline Cutter: PADMINI Moranonocytes/100 WBC (Bld)10 %Normal3-12[facility] - AkronComment on above:Performed By: #### CDP, TROPI, BMP, CRP, SED #### [address] [address] Offline Cutter: Anne Marie Moranutrophil (Seg)65 %Ocbdie34-66NqlirSelect Medical Specialty Hospital - AkronComment on above:Performed By: #### CDP, TROPI, BMP, CRP, SED #### [address] [address] Offline Cutter: Campos Escobedo MDNRBC Automated0.0 per 100 WBCNormal0.0[facility] - AkronComment on above:Performed By: #### CDP, TROPI, BMP, CRP, SED #### [address] [address] Offline Cutter: CAROLINA Moranlatelet mean volume (Bld) [Entitic vol]9.1 fL Normal8.1-13.5[facility] - AkronComment on above:Performed By: #### CDP, TROPI, BMP, CRP, SED #### [address] [address] Offline Cutter: Carlton Moran (Bld) [#/Vol]575 10*3/zGHkcp966-015 [facility] - AkronComment on above:Performed By: #### CDP, TROPI, BMP, CRP, SED #### [address] [address] Offline Cutter: KEMI Moran (Bld) [#/Vol]3.50 10*6/uLLow3.95-5.11[facility] - AkronComment on above:Performed By: #### CDP, TROPI, BMP, CRP, SED #### [address] [address] Offline Cutter: MARC Moran (Bld) [#/Vol]9.6 10*3/uLNormal3.5-11.3MMemorial Medical CenterComment on above:Performed By: #### CDP, TROPI, BMP, CRP, SED #### [address] [address] Offline Cutter: Nenita Moran PerformedNOT REPORTEDNormalSelect Medical Specialty Hospital - AkronComment on above:Performed By: #### CDP, TROPI, BMP, CRP, SED #### [address] [address] Offline Cutter: Carlton Moran (Bld) [#/Vol]NOT REPORTEDNormalSelect Medical Specialty Hospital - AkronComment on above:Performed By: #### CDP, TROPI, BMP, CRP, SED #### [facility]_ [address] [place] [address] Offline Cutter: KEMI Moran morphology finding Nom (Bld)NOT REPORTED NormalSelect Medical Specialty Hospital - AkronComment on above:Performed By: #### CDP, TROPI, BMP, CRP, SED #### [facility] [address] [place] [address] Offline Cutter: MARC Moran MorphologyNOT REPORTEDNormalSelect Medical Specialty Hospital - AkronComment on above:Performed By: #### CDP, TROPI, BMP, CRP, SED #### [facility] [address] [place] [address] Offline Cutter: JULIEN Moranalcium, Ionicon [id number] [Mass/Vol] 1.14 mmol/LNormal1.13-1.33[facility] AkronComment on above: Performed By: #### CDP, TROPI, BMP, CRP, SED #### [facility] [address] [place] [address] Offline Cutter: Nikko Morangnesiumon [id number] [Mass/Vol]2.0 mg/dLNormal1.6-2.6Mohiohealthy [facility] Hospital Of GardenaComment on above:Performed By: #### CDP, TROPI, BMP, CRP, SED #### [facility]_ [address] [place] [address] Offline Cutter: Mau Moran [id number] Coag (PPP) [Relative time]1.0 {INR}NormalSelect Medical Specialty Hospital - AkronComment on above:Result Comment: Therapeutic Range: Moderate Anticoagulant Intensity: INR = 2.0-3.0 High Anticoagulant Intensity: INR = 2.5-3.5Performed By: #### CDP, TROPI, BMP, CRP, SED #### [facility] [address] [place] [address] Offline Cutter: AKASH Moran Coag (PPP) [Time]10.6 sNormal9.0-12.0[facility] - AkronComment on above:Performed By: #### CDP, TROPI, BMP, CRP, SED #### [facility] [address] [place] [address] [id number] Offline Cutter: Kayode Moran Inorg.on [id number], Inorg.3.6 mg/dLNormal2.6-4.5[facility] AkronComment on above: Performed By: #### CDP, TROPI, BMP, CRP, SED #### [facility] [address] [place] [address] [phone] Offline Cutter: DUSTIN MoranR CHEST (2 VW)on [id number] CHEST (2 VW) EXAMINATION: TWO XRAY VIEWS [...] Signed by: Olamide Fontanez MD 08/17/19 Final resultNormalSelect Medical Specialty Hospital - AkronAPTTon [id number] Coag (Bld) [Time]24.5 mOvbgsg02.5-30.5[facility] AkronComment on above:Performed By: #### CDP, TROPI, BMP, CRP, SED #### [facility] [address] [place] [address] [id number] Offline Cutter: Campos Escobedo [facility] Metabolic Profon 08-16-2019(cont.)Normal [facility] AkronComment on above:Result Comment: Average GFR for 60-69 years old: 85 mL/min/1.73sq m Chronic Kidney Disease: <60 mL/min/1.73sq m Kidney failure: <15 mL/min/1.73sq m eGFR calculated using average adult body mass. Additional eGFR calculator available at: http://www.Appuri.com/multiple_crcl_2012.htmPerformed By: #### CDP, TROPI, BMP, CRP, SED #### [facility] [address] [place] [address] Offline Cutter: Campos Escobedo MDAnion gap [Moles/Vol]14 mmol/LNormal9-17[facility] AkronComment on above:Performed By: #### CDP, TROPI, BMP, CRP, SED #### [facility] [address] [place] [address]79[address] Offline Cutter: Campos Escobedo MDCalcium [Mass/Vol]8.6 mg/dLNormal8.6-10.4[facility] AkronComment on above:Performed By: #### CDP, TROPI, BMP, CRP, SED #### [facility] [address] [place] [address] Offline Cutter: Campos Escobedo MDChloride [Moles/Vol]102 mmol/INmyfuc55-618KtqnmSelect Medical Specialty Hospital - AkronComment on above:Performed By: #### CDP, TROPI, BMP, CRP, SED #### [facility] [address] [place] [address] Offline Cutter: Campos Escobedo MDCO2 [Moles/Vol]21 mmol/NFbyxdc81-38BtcysSelect Medical Specialty Hospital - AkronComment on above:Performed By: #### CDP, TROPI, BMP, CRP, SED #### [facility] [address] [place] [address] Offline Cutter: Campos Escobedo MDCreatinine [Mass/Vol]0.45 mg/dLLow0.50-0.90[facility] AkronComment on above:Performed By: #### CDP, TROPI, BMP, CRP, SED #### [facility] [address] [place] [address] 9[address]75 Offline Cutter: Campos Escobedo MDGFR, Amer>60Normal>60[facility] GardenaComment on above:Performed By: #### CDP, TROPI, BMP, CRP, SED #### [facility] [address] [place] [address] Offline Cutter: Campos Escobedo MDGFR,non Amer>60Normal>60MerCommunity Hospital of Long BeachComment on above:Performed By: #### CDP, TROPI, BMP, CRP, SED #### [facility] [address] [place] [address] Offline Cutter: Campos Escobedo MDGlucose [Mass/Vol]191 mg/gTMcgb06-11Rbccn [facility] GardenaComment on above:Performed By: #### CDP, TROPI, BMP, CRP, SED #### [facility] [address] [place] [address] Offline Cutter: CAROLINA Moranotassium [Moles/Vol]3.6 mmol/LLow3.7-5.3[facility] Of GardenaComment on above:Performed By: #### CDP, TROPI, BMP, CRP, SED #### [facility] [address] [place] [address] Offline Cutter: VITOR Moranodium [Moles/Vol]137 mmol/LDukuog040-717QvsekSelect Medical Specialty Hospital - AkronComment on above:Performed By: #### CDP, TROPI, BMP, CRP, SED #### [facility] [address] [place] [address] Offline Cutter: Campos Escobedo MDUrea nitrogen [Mass/Vol]8 mg/dLNormal8-23[facility] AkronComment on above:Performed By: #### CDP, TROPI, BMP, CRP, SED #### [facility] [address] [place] [address] Offline Cutter: NITA Moran/CRE RatioNOT REPORTEDNormal9-20[facility] AkronComment on above:Performed By: #### CDP, TROPI, BMP, CRP, SED #### [address] [address] Offline Cutter: VITOR Morantaging:NOT REPORTEDNormalSelect Medical Specialty Hospital - AkronComment on above:Performed By: #### CDP, TROPI, BMP, CRP, SED #### [facility] [address] [place] [address] Offline Cutter: Campos Escobedo [facility] with Diffon [id number]. Basophil0.08 k/uL Normal0.00-0.20[facility] AkronComment on above:Performed By: #### CDP, TROPI, BMP, CRP, SED #### [address] [address] Offline Cutter: Miriam Moran.Imm.Granulocyte0.09 k/uLNormal0.00-0.30[facility] AkronComment on above:Performed By: #### CDP, TROPI, BMP, CRP, SED #### [address] [address] Offline Cutter: Miriam Moran.Neutrophil (Seg)7.15 k/uLNormal1.50-8.10 [facility] AkronComment on above:Performed By: #### CDP, TROPI, BMP, CRP, SED #### [facility]_ [address] [place] [address] Offline Cutter: Campos Escobedo MDBasophils/100 WBC (Bld)1 %Normal0-2MMemorial Medical CenterComment on above:Performed By: #### CDP, TROPI, BMP, CRP, SED #### [facility]_ [address] [place] [address] Offline Cutter: Campos Madoff, MDEosinophils (Bld) [#/Vol]0.38 10*3/uLNormal 0.00-0.44[facility] AkronComment on above:Performed By: #### CDP, TROPI, BMP, CRP, SED #### [facility]_ [address] [place] [address] Offline Cutter: Campos Escobedo MDEosinophils/100 WBC (Bld)4 %Normal1-4[facility] AkronComment on above:Performed By: #### CDP, TROPI, BMP, CRP, SED #### [place] [address] Offline Cutter: Campos Escobedo MDErythrocyte distribution width (RBC) [Ratio]12.4 %Itylyt57.8-14.4[facility] AkronComment on above:Performed By: #### CDP, TROPI, BMP, CRP, SED #### [place] [address] Offline Cutter: Campos Escobedo MDHematocrit (Bld) [Volume fraction]34.5 %Low 36.3-47.1MMemorial Medical CenterComment on above:Performed By: #### CDP, TROPI, BMP, CRP, SED #### [place] [address] Offline Cutter: Campos Escobedo MDHemoglobin (Bld) [Mass/Vol]10.8 g/dLLow11.9-15.1 [facility] AkronComment on above:Performed By: #### CDP, TROPI, BMP, CRP, SED #### [place] [address] Offline Cutter: Campos Escobedo MDImmature granulocytes (Bld) [#/Vol]1 %Vacs8NxnsvSelect Medical Specialty Hospital - AkronComment on above:Performed By: #### CDP, TROPI, BMP, CRP, SED #### [address] [address] Offline Cutter: Leyla Moranmphocytes (Bld) [#/Vol]1.20 10*3/uLNormal 1.10-3.70[facility] AkronComment on above:Performed By: #### CDP, TROPI, BMP, CRP, SED #### [place] [address] Offline Cutter: Leyla Moranmphocytes/100 WBC (Bld)12 %Kcx39-69WbwgwSelect Medical Specialty Hospital - AkronComment on above:Performed By: #### CDP, TROPI, BMP, CRP, SED #### [place] [address] Offline Cutter: PADMINI MoranCH (RBC) [Entitic mass]30.4 xqHdmzxr95.2-33.5 [facility] AkronComment on above:Performed By: #### CDP, TROPI, BMP, CRP, SED #### [place] [address] Offline Cutter: PADMINI MoranCHC (RBC) [Mass/Vol]31.3 g/gFRfadtx73.4-34.8 [facility] AkronComment on above:Performed By: #### CDP, TROPI, BMP, CRP, SED #### [place] [address] Offline Cutter: PADMINI MoranCV (RBC) [Entitic vol]97.2 sUEhgthu28.6-102.9 [facility] AkronComment on above:Performed By: #### CDP, TROPI, BMP, CRP, SED #### [address] [address] Offline Cutter: PADMINI Moranonocytes (Bld) [#/Vol]0.77 10*3/uLNormal 0.10-1.20[facility] AkronComment on above:Performed By: #### CDP, TROPI, BMP, CRP, SED #### [facility] [address] [place] [address] Offline Cutter: PADMINI Moranonocytes/100 WBC (Bld)8 %Normal3-12[facility] AkronComment on above:Performed By: #### CDP, TROPI, BMP, CRP, SED #### [facility] [address] [place] [address] Offline Cutter: Elio Moran (Seg)74 %Dxag86-51WqoxmSelect Medical Specialty Hospital - AkronComment on above:Performed By: #### CDP, TROPI, BMP, CRP, SED #### [facility] [address] [place] [address] Offline Cutter: KAREN Moran Automated0.0 per 100 WBCNormal0.0[facility] AkronComment on above:Performed By: #### CDP, TROPI, BMP, CRP, SED #### [facility] [address] [place] [address] Offline Cutter: Kemal Moran mean volume (Bld) [Entitic vol]9.0 fL Normal8.1-13.5[facility] - AkronComment on above:Performed By: #### CDP, TROPI, BMP, CRP, SED #### [facility] [address] [place] [address] Offline Cutter: Carlton Moran (Bld) [#/Vol]560 10*3/kNMfyf483-364 [facility] AkronComment on above:Performed By: #### CDP, TROPI, BMP, CRP, SED #### [facility] [address] [place] [address] Offline Cutter: Campos Madoff, MDRBC (Bld) [#/Vol]3.55 10*6/uLLow3.95-5.11[facility] GardenaComment on above:Performed By: #### CDP, TROPI, BMP, CRP, SED #### [facility] [address] [place] [address] Offline Cutter: MARC Moran (Bld) [#/Vol]9.7 10*3/uLNormal3.5-11.3[facility] GardenaComment on above:Performed By: #### CDP, TROPI, BMP, CRP, SED #### [facility] [address] [place] [address] Offline Cutter: Nenita Moran PerformedNOT REPORTEDNormalSelect Medical Specialty Hospital - AkronComment on above:Performed By: #### CDP, TROPI, BMP, CRP, SED #### [facility] [address] [place] [address] Offline Cutter: Carlton Moran (Bld) [#/Vol]NOT REPORTEDNormalSelect Medical [facility] Hospital - AkronComment on above:Performed By: #### CDP, TROPI, BMP, CRP, SED #### [facility] [address] [place] [address] Offline Cutter: KEMI Moran morphology finding Nom (Bld)NOT REPORTED NormalSelect Medical Specialty Hospital - AkronComment on above:Performed By: #### CDP, TROPI, BMP, CRP, SED #### [facility] [address] [place] [address] Offline Cutter: MARC Moran MorphologyNOT REPORTEDNormalSelect Medical Specialty Hospital - AkronComment on above:Performed By: #### CDP, TROPI, BMP, CRP, SED #### [facility] [address] [place] [address] Offline Cutter: Warren Moran Ionicon [id number] [Mass/Vol] 1.21 mmol/LNormal1.13-1.33[facility] AkronComment on above: Performed By: #### CDP, TROPI, BMP, CRP, SED #### [facility] [address] [place], [place] [address] Offline Cutter: Nikko Morangnesiumon 25-58-2662Coipgscwn [Mass/Vol]2.1 mg/dLNormal1.6-2.6[facility] GardenaComment on above:Performed By: #### CDP, TROPI, BMP, CRP, SED #### [facility] [address] [place] [address] Offline Cutter: Campos Escobedo MDMycoplasma Ab, IgMon 93-96-3015Oaytckskto Ab, IgM0.39Normal<0.91MerCommunity Hospital of Long BeachComment on above:Result Comment: Reference Range: <=0.90 Negative 0.91-1.09 Equivocal >=1.10 PositivePerformed By: #### CDP, TROPI, BMP, CRP, SED #### [facility] [address] [place] [address] Offline Cutter: Mau Moran 83-96-1010HII Coag (PPP) [Relative time]1.0 {INR}NormalMerCommunity Hospital of Long BeachComment on above:Result Comment: Therapeutic Range: Moderate Anticoagulant Intensity: INR = 2.0-3.0 High Anticoagulant Intensity: INR = 2.5-3.5Performed By: #### CDP, TROPI, BMP, CRP, SED #### [facility] [address] [place] [address] Offline Cutter: AKASH Moran Coag (PPP) [Time]10.7 sNormal9.0-12.0[facility] AkronComment on above:Performed By: #### CDP, TROPI, BMP, CRP, SED #### [facility] [address] [place], [place] [phone] Offline Cutter: Kayode Moran Inorg.on [id number], Inorg.3.3 mg/dLNormal2.6-4.5[facility] AkronComment on above: Performed By: #### CDP, TROPI, BMP, CRP, SED #### [facility] [address] [place] [address] Offline Cutter: Marizol Moran Rejectionon [phone] for rejectionUnable to perform testing: Specimen clotted.[facility] – JacksonComment on above:Performed By: #### CDP, TROPI, BMP, CRP, SED #### [facility] [address] [place] [address] Offline Cutter: Antonia Moran of sample.BLOODHolzer Medical Center – JacksonComment on above:Performed By: #### CDP, TROPI, BMP, CRP, SED #### [facility] [address] [place] [address] Offline Cutter: Campos Escobedo MDTest orderedPT, PTTHolzer Medical Center – JacksonComment on above:Performed By: #### CDP, TROPI, BMP, CRP, SED #### [facility] [address] [place] [address] Offline Cutter: Campos Escobedo MD-----NOT REPORTEDNoClinton Memorial HospitalComment on above:Performed By: #### CDP, TROPI, BMP, CRP, SED #### [facility] [address] [place] [address] Offline Cutter: Zahra Moran [id number] Coag (Bld) [Time]27.3 s Emwump60.5-30.5[facility] AkronComment on above:Performed By: #### CDP, TROPI, BMP, CRP, SED #### [facility] [address] [place] [address] Offline Cutter: Nina Moran Metabolic Profon 08-15-2019(cont.)[facility] HospitalComment on above:Result Comment: Average GFR for 60-69 years old: 85 mL/min/1.73sq m Chronic Kidney Disease: <60 mL/min/1.73sq m Kidney failure: <15 mL/min/1.73sq m eGFR calculated using average adult body mass. Additional eGFR calculator available at: http://www.Appuri.Classiphix/multiple_crcl_2012.htmPerformed By: #### CDP, TROPI, BMP, CRP, SED #### [facility] [address] [place] [address] Offline Cutter: Campos Escobedo MDAnion gap [Moles/Vol]11 mmol/LNormal9-17[facility] AkronComment on above:Performed By: #### CDP, TROPI, BMP, CRP, SED #### [facility] [address] [place] [address] Offline Cutter: Campos Escobedo MDCalcium [Mass/Vol]8.1 mg/dLLow8.6-10.4[facility] AkronComment on above:Performed By: #### CDP, TROPI, BMP, CRP, SED #### [facility] [address] [place] [address] Offline Cutter: Campos Escobedo MDChloride [Moles/Vol]103 mmol/BSjhpjn90-793ChzfjSelect Medical Specialty Hospital - AkronComment on above:Performed By: #### CDP, TROPI, BMP, CRP, SED #### [facility] [address] [place] [address] Offline Cutter: Campos Escobedo MDCO2 [Moles/Vol]23 mmol/KPetnrl14-06MxiwmSelect Medical Specialty Hospital - AkronComment on above:Performed By: #### CDP, TROPI, BMP, CRP, SED #### [facility] [address] [place] [address] Offline Cutter: JULIEN Moranreatinine [Mass/Vol]0.49 mg/dLLow0.50-0.90MerCommunity Hospital of Long BeachComment on above:Performed By: #### CDP, TROPI, BMP, CRP, SED #### [place] [address] Offline Cutter: Campos Escobedo MDGFR, Amer>60Normal>60[facility] - AkronComment on above:Performed By: #### CDP, TROPI, BMP, CRP, SED #### [place] [address] Offline Cutter: Campos Escobedo MDGFR,non Amer>60Normal>60MerCommunity Hospital of Long BeachComment on above:Performed By: #### CDP, TROPI, BMP, CRP, SED #### [address] [address] Offline Cutter: Campos Escobedo MDGlucose [Mass/Vol]183 mg/pEGtdw12-73Frdqp [facility] GardenaComment on above:Performed By: #### CDP, TROPI, BMP, CRP, SED #### [place] [address] Offline Cutter: Campos Escobedo MDPotassium [Moles/Vol]3.6 mmol/LLow3.7-5.3[facility] Of GardenaComment on above:Performed By: #### CDP, TROPI, BMP, CRP, SED #### [facility] [address] [place] [address] Offline Cutter: Campos Escobedo MDSodium [Moles/Vol]137 mmol/LMhreaz625-687QjjojCommunity Hospital of Long BeachComment on above:Performed By: #### CDP, TROPI, BMP, CRP, SED #### [facility] [address] [place] [address] Offline Cutter: Campos Escobedo MDUrea nitrogen [Mass/Vol]5 mg/dLLow8-23[facility] AkronComment on above:Performed By: #### CDP, TROPI, BMP, CRP, SED #### [facility] [address] [place] [address] Offline Cutter: NITA Moran/CRE RatioNOT REPORTEDNormal9-20[facility] AkronComment on above:Performed By: #### CDP, TROPI, BMP, CRP, SED #### [facility] [address] [place] [address] Offline Cutter: VITOR Morantaging:NOT REPORTEDNormalSelect Medical Specialty Hospital - AkronComment on above:Performed By: #### CDP, TROPI, BMP, CRP, SED #### [facility] [address] [place] [address] Offline Cutter: JULIEN Moran-Reactive Proteinon [id number] [Mass/Vol] 169.1 mg/LHigh0.0-5.0Select [facility] - AkronComment on above:Performed By: #### CDP, TROPI, BMP, CRP, SED #### [facility] [address] [place] [address] Offline Cutter: JULIEN Moran with Diffon [id number]. Basophil0.06 k/uL Normal0.00-0.20[facility] - AkronComment on above:Performed By: #### CDP, TROPI, BMP, CRP, SED #### [facility] [address] [place] [address] Offline Cutter: Miriam Moran.Imm.Granulocyte0.10 k/uLNormal0.00-0.30[facility] - AkronComment on above:Performed By: #### CDP, TROPI, BMP, CRP, SED #### [address] [address] Offline Cutter: Miriam Moran.Neutrophil (Seg)7.41 k/uLNormal1.50-8.10 [facility] - AkronComment on above:Performed By: #### CDP, TROPI, BMP, CRP, SED #### [place] [address] Offline Cutter: Campos Escobedo MDBasophils/100 WBC (Bld)1 %Normal0-2MMemorial Medical CenterComment on above:Performed By: #### CDP, TROPI, BMP, CRP, SED #### [place] [address] Offline Cutter: Campos Escobedo MDEosinophils (Bld) [#/Vol]0.38 10*3/uLNormal 0.00-0.44[facility] - AkronComment on above:Performed By: #### CDP, TROPI, BMP, CRP, SED #### [place] [address] Offline Cutter: YARELI Moranosinophils/100 WBC (Bld)4 %Normal1-4[facility] - AkronComment on above:Performed By: #### CDP, TROPI, BMP, CRP, SED #### [place] [address] Offline Cutter: Campos Escobedo MDErythrocyte distribution width (RBC) [Ratio]12.4 %Gdcllw62.8-14.4[facility] - AkronComment on above:Performed By: #### CDP, TROPI, BMP, CRP, SED #### [place] [address] Offline Cutter: Campos Escobedo MDHematocrit (Bld) [Volume fraction]31.0 %Low 36.3-47.1MMemorial Medical CenterComment on above:Performed By: #### CDP, TROPI, BMP, CRP, SED #### [facility] [address] [place] [address] Offline Cutter: Campos Escobedo MDHemoglobin (Bld) [Mass/Vol]9.9 g/dLLow11.9-15.1 [facility] - AkronComment on above:Performed By: #### CDP, TROPI, BMP, CRP, SED #### [facility] [address] [place] [address] Offline Cutter: Campos Escobedo MDImmature granulocytes (Bld) [#/Vol]1 %Gixt9VgvhjSelect Medical Specialty Hospital - AkronComment on above:Performed By: #### CDP, TROPI, BMP, CRP, SED #### [facility] [address] [place] [address] Offline Cutter: Campos Escobedo MDLymphocytes (Bld) [#/Vol]1.03 10*3/uLLow 1.10-3.70[facility] - AkronComment on above:Performed By: #### CDP, TROPI, BMP, CRP, SED #### [facility] [address] [place] [address] Offline Cutter: Leyla Moranmphocytes/100 WBC (Bld)11 %Lox11-32BmmgaSelect Medical Specialty Hospital - AkronComment on above:Performed By: #### CDP, TROPI, BMP, CRP, SED #### [facility] [address] [place] [address] Offline Cutter: PADMINI MoranCH (RBC) [Entitic mass]30.9 hkIounbo22.2-33.5 [facility] - AkronComment on above:Performed By: #### CDP, TROPI, BMP, CRP, SED #### [facility] [address] [place] [address] Offline Cutter: PADMINI MoranCHC (RBC) [Mass/Vol]31.9 g/dPPegpot88.4-34.8 [facility] - AkronComment on above:Performed By: #### CDP, TROPI, BMP, CRP, SED #### [address] [address] Offline Cutter: PADMINI MoranCV (RBC) [Entitic vol]96.9 pTAjvmsb80.6-102.9 [facility] - AkronComment on above:Performed By: #### CDP, TROPI, BMP, CRP, SED #### [place] [address] Offline Cutter: PADMINI Moranonocytes (Bld) [#/Vol]0.72 10*3/uLNormal 0.10-1.20[facility] - AkronComment on above:Performed By: #### CDP, TROPI, BMP, CRP, SED #### [place] [address] Offline Cutter: PADMINI Moranonocytes/100 WBC (Bld)7 %Normal3-12[facility] - AkronComment on above:Performed By: #### CDP, TROPI, BMP, CRP, SED #### [place] [address] Offline Cutter: Campos Escobedo MDNeutrophil (Seg)76 %Dlsq88-85HgnulSelect Medical Specialty Hospital - AkronComment on above:Performed By: #### CDP, TROPI, BMP, CRP, SED #### [facility] [address] [place] [address] Offline Cutter: Campos Escobedo MDNRBC Automated0.0 per 100 WBCNormal0.0[facility] - AkronComment on above:Performed By: #### CDP, TROPI, BMP, CRP, SED #### [facility] [address] [place] [address] Offline Cutter: Kemal Moran mean volume (Bld) [Entitic vol]8.8 fL Normal8.1-13.5[facility] Hospital - AkronComment on above:Performed By: #### CDP, TROPI, BMP, CRP, SED #### [facility] [address] [place] [address] Offline Cutter: Carlton Moran (Bld) [#/Vol]486 10*3/iNBwlb943-315 [facility] - AkronComment on above:Performed By: #### CDP, TROPI, BMP, CRP, SED #### [address] [address] Offline Cutter: KEMI Moran (Bld) [#/Vol]3.20 10*6/uLLow3.95-5.11[facility] - AkronComment on above:Performed By: #### CDP, TROPI, BMP, CRP, SED #### [address] [address] Offline Cutter: MARC Moran (Bld) [#/Vol]9.7 10*3/uLNormal3.5-11.3MMemorial Medical CenterComment on above:Performed By: #### CDP, TROPI, BMP, CRP, SED #### [facility] [address] [place] [address] Offline Cutter: Nenita Moran PerformedNOT REPORTEDNoClinton Memorial HospitalComment on above:Performed By: #### CDP, TROPI, BMP, CRP, SED #### [facility] [address] [place] [address] Offline Cutter: Carlton Moran (Bld) [#/Vol]NOT REPORTEDNoClinton Memorial HospitalComment on above:Performed By: #### CDP, TROPI, BMP, CRP, SED #### [facility] [address] [place] [address] Offline Cutter: KEMI Moran morphology finding Nom (Bld)NOT REPORTED NormalSelect Medical Specialty Hospital - AkronComment on above:Performed By: #### CDP, TROPI, BMP, CRP, SED #### [facility] [address] [place] [address] Offline Cutter: MARC Moran MorphologyNOT REPORTEDNoClinton Memorial HospitalComment on above:Performed By: #### CDP, TROPI, BMP, CRP, SED #### [facility] [address] [place] [address] Offline Cutter: Campos Escobedo MDCalcium, Ionicon [id number] [Mass/Vol] 1.06 mmol/LLow1.13-1.33MerCommunity Hospital of Long BeachComment on above: Performed By: #### CDP, TROPI, BMP, CRP, SED #### [facility] [address] [place] [address] Offline Cutter: Campos Escobedo MDMagnesiumon [phone] [Mass/Vol]1.9 mg/dLNormal1.6-2.6[facility] Of GardenaComment on above:Performed By: #### CDP, TROPI, BMP, CRP, SED #### [facility] [address] [place] [address] Offline Cutter: Mau Moran [id number] Coag (PPP) [Relative time]1.0 {INR}[facility] Center – JacksonComment on above:Result Comment: Therapeutic Range: Moderate Anticoagulant Intensity: INR = 2.0-3.0 High Anticoagulant Intensity: INR = 2.5-3.5Performed By: #### CDP, TROPI, BMP, CRP, SED #### [facility] [address] [place] [address] [phone] Offline Cutter: AKASH Moran Coag (PPP) [Time]10.7 sNormal9.0-12.0[facility] - AkronComment on above:Performed By: #### CDP, TROPI, BMP, CRP, SED #### [facility] [address] [place] [address] [phone] Offline Cutter: Kayode Moran Inorlowellon 04-99-3600Arqlztvjhy, Inorg.2.9 mg/dLNormal2.6-4.5[facility] - AkronComment on above: Performed By: #### CDP, TROPI, BMP, CRP, SED #### [facility] [address] [place] [address] [phone] Offline Cutter: Zahra Moran 09-07-1888sWSO Coag (Bld) [Time]26.3 s Mcjjcu14.5-30.5[facility] - AkronComment on above:Performed By: #### CDP, TROPI, BMP, CRP, SED #### [facility] [address] [place] [address] [phone] Offline Cutter: Nina Moran Metabolic Profon 08-14-2019(cont.)Normal [facility] - AkronComment on above:Result Comment: Average GFR for 60-69 years old: 85 mL/min/1.73sq m Chronic Kidney Disease: <60 mL/min/1.73sq m Kidney failure: <15 mL/min/1.73sq m eGFR calculated using average adult body mass. Additional eGFR calculator available at: http://www.Appuri.com/multiple_crcl_2012.htmPerformed By: #### CDP, TROPI, BMP, CRP, SED #### [facility] [address] [place] [address] [phone] Offline Cutter: Daija Moran gap [Moles/Vol]13 mmol/LNormal9-17[facility] - AkronComment on above:Performed By: #### CDP, TROPI, BMP, CRP, SED #### [facility] [address] [place] [address] Offline Cutter: Campos Escobedo MDCalcium [Mass/Vol]8.1 mg/dLLow8.6-10.4[facility] - AkronComment on above:Performed By: #### CDP, TROPI, BMP, CRP, SED #### [facility] [address] [place] [address] Offline Cutter: Campos Escobedo MDChloride [Moles/Vol]101 mmol/NHmrmlm05-325DchemSelect Medical Specialty Hospital - AkronComment on above:Performed By: #### CDP, TROPI, BMP, CRP, SED #### [facility] [address] [place] [address] Offline Cutter: Campos Escobedo MDCO2 [Moles/Vol]23 mmol/WJnebsu76-74AluldSelect Medical Specialty Hospital - AkronComment on above:Performed By: #### CDP, TROPI, BMP, CRP, SED #### [facility] [address] [place] [address] Offline Cutter: Campos Escobedo MDCreatinine [Mass/Vol]0.56 mg/dLNormal0.50-0.90 [facility] AkronComment on above:Performed By: #### CDP, TROPI, BMP, CRP, SED #### [facility] [address] [place] [address] Offline Cutter: CHANDA Moran, Amer>60Normal>60[facility] - AkronComment on above:Performed By: #### CDP, TROPI, BMP, CRP, SED #### [facility] [address] [place] [address] Offline Cutter: CHANDA Moran,non Amer>60Normal>60MerCommunity Hospital of Long BeachComment on above:Performed By: #### CDP, TROPI, BMP, CRP, SED #### [facility] [address] [place] [address] Offline Cutter: Campos Escobedo MDGlucose [Mass/Vol]164 mg/jTMqlz42-82PpxhlMemorial Medical CenterComment on above:Performed By: #### CDP, TROPI, BMP, CRP, SED #### [facility] [address] [place] [address] Offline Cutter: CAROLINA Moranotassium [Moles/Vol]3.8 mmol/LNormal3.7-5.3 [facility] - AkronComment on above:Performed By: #### CDP, TROPI, BMP, CRP, SED #### [address] [address] Offline Cutter: VITOR Moranodium [Moles/Vol]137 mmol/XDokagt758-009KaewgSelect Medical Specialty Hospital - AkronComment on above:Performed By: #### CDP, TROPI, BMP, CRP, SED #### [facility] [address] [place] [address] Offline Cutter: Campos Escobedo MDUrea nitrogen [Mass/Vol]7 mg/dLLow8-23[facility] AkronComment on above:Performed By: #### CDP, TROPI, BMP, CRP, SED #### [facility] [address] [place] [address] Offline Cutter: Campos Escobedo MDBUN/CRE RatioNOT REPORTEDNormal9-20[facility] AkronComment on above:Performed By: #### CDP, TROPI, BMP, CRP, SED #### [facility] [address] [place] [address] Offline Cutter: VITOR Morantaging:NOT REPORTEDNormalSelect Medical Specialty Hospital - AkronComment on above:Performed By: #### CDP, TROPI, BMP, CRP, SED #### [facility] [address] [place] [address] Offline Cutter: IGOR Moran with Diffon [id number]. Basophil0.05 k/uL Normal0.00-0.20[facility] - AkronComment on above:Performed By: #### CDP, TROPI, BMP, CRP, SED #### [facility] [address] [place] [address] Offline Cutter: Miriam Moran.Imm.Granulocyte0.11 k/uLNormal0.00-0.30[facility] - AkronComment on above:Performed By: #### CDP, TROPI, BMP, CRP, SED #### [place] [address] Offline Cutter: Miriam Moran.Neutrophil (Seg)6.99 k/uLNormal1.50-8.10 [facility] - AkronComment on above:Performed By: #### CDP, TROPI, BMP, CRP, SED #### [facility] [address] [place] [address] Offline Cutter: Campos Escobedo MDBasophils/100 WBC (Bld)1 %Normal0-2MMemorial Medical CenterComment on above:Performed By: #### CDP, TROPI, BMP, CRP, SED #### [facility] [address] [place] [address] Offline Cutter: Campos Escobedo MDEosinophils (Bld) [#/Vol]0.38 10*3/uLNormal 0.00-0.44[facility] - AkronComment on above:Performed By: #### CDP, TROPI, BMP, CRP, SED #### [facility] [address] [place] [address] Offline Cutter: Campos Madoff, MDEosinophils/100 WBC (Bld)4 %Normal1-4[facility] - AkronComment on above:Performed By: #### CDP, TROPI, BMP, CRP, SED #### [facility] [address] [place] [address] Offline Cutter: Campos Escobedo MDErythrocyte distribution width (RBC) [Ratio]12.6 %Lnyxkj62.8-14.4[facility] AkronComment on above:Performed By: #### CDP, TROPI, BMP, CRP, SED #### [facility] [address] [place] [address] Offline Cutter: Campos Escobedo MDHematocrit (Bld) [Volume fraction]31.7 %Low 36.3-47.1MMemorial Medical CenterComment on above:Performed By: #### CDP, TROPI, BMP, CRP, SED #### [facility] [address] [place] [address] Offline Cutter: Campos Escobedo MDHemoglobin (Bld) [Mass/Vol]9.9 g/dLLow11.9-15.1 [facility] AkronComment on above:Performed By: #### CDP, TROPI, BMP, CRP, SED #### [facility] [address] [place] [address] Offline Cutter: Campos Escobedo MDImmature granulocytes (Bld) [#/Vol]1 %Dpqq7EjqqxSelect Medical Specialty Hospital - AkronComment on above:Performed By: #### CDP, TROPI, BMP, CRP, SED #### [facility] [address] [place] [address] Offline Cutter: Campos Escobedo MDLymphocytes (Bld) [#/Vol]1.19 10*3/uLNormal 1.10-3.70[facility] - AkronComment on above:Performed By: #### CDP, TROPI, BMP, CRP, SED #### [address] [address] Offline Cutter: Campos Escobedo MDLymphocytes/100 WBC (Bld)13 %Lbk66-63AyxbzSelect Medical Specialty Hospital - AkronComment on above:Performed By: #### CDP, TROPI, BMP, CRP, SED #### [address] [address] Offline Cutter: PADMINI MoranCH (RBC) [Entitic mass]30.3 mrImbnff99.2-33.5 [facility] - AkronComment on above:Performed By: #### CDP, TROPI, BMP, CRP, SED #### [address] [address] Offline Cutter: PADMINI MoranCHC (RBC) [Mass/Vol]31.2 g/xHUaeqez38.4-34.8 [facility] AkronComment on above:Performed By: #### CDP, TROPI, BMP, CRP, SED #### [address] [address] Offline Cutter: PADMINI MoranCV (RBC) [Entitic vol]96.9 pSTobrll38.6-102.9 [facility] AkronComment on above:Performed By: #### CDP, TROPI, BMP, CRP, SED #### [address] [address] Offline Cutter: PADMINI Moranonocytes (Bld) [#/Vol]0.79 10*3/uLNormal 0.10-1.20[facility] AkronComment on above:Performed By: #### CDP, TROPI, BMP, CRP, SED #### [address] [address] Offline Cutter: PADMINI Moranonocytes/100 WBC (Bld)8 %Normal3-12[facility] - AkronComment on above:Performed By: #### CDP, TROPI, BMP, CRP, SED #### [facility] [address] [place] [address] Offline Cutter: Elio Moran (Seg)73 %Dhkw34-90CuradSelect Medical Specialty Hospital - AkronComment on above:Performed By: #### CDP, TROPI, BMP, CRP, SED #### [facility] [address] [place] [address] Offline Cutter: KAREN Moran Automated0.0 per 100 WBCNormal0.0[facility] AkronComment on above:Performed By: #### CDP, TROPI, BMP, CRP, SED #### [facility] [address] [place] [address] Offline Cutter: Kemal Moran mean volume (Bld) [Entitic vol]8.8 fL Normal8.1-13.5[facility] - AkronComment on above:Performed By: #### CDP, TROPI, BMP, CRP, SED #### [facility] [address] [place] [address] Offline Cutter: Carlton Moran (Bld) [#/Vol]493 10*3/vJXhna657-781 [facility] AkronComment on above:Performed By: #### CDP, TROPI, BMP, CRP, SED #### [facility] [address] [place] [address] Offline Cutter: LUZ MARIA MoranBC (Bld) [#/Vol]3.27 10*6/uLLow3.95-5.11[facility] AkronComment on above:Performed By: #### CDP, TROPI, BMP, CRP, SED #### [facility] [address] [place] [address] Offline Cutter: MARC Moran (Bld) [#/Vol]9.5 10*3/uLNormal3.5-11.3[facility] Of GardenaComment on above:Performed By: #### CDP, TROPI, BMP, CRP, SED #### [facility] [address] [place] [address] Offline Cutter: Nenita Moran Diff PerformedNOT REPORTEDNormalMercy Memorial Hospital Of GardenaComment on above:Performed By: #### CDP, TROPI, BMP, CRP, SED #### [facility] [address] [place] [address] Offline Cutter: Carlton Moran (Bld) [#/Vol]NOT REPORTEDNormalMerCommunity Hospital of Long BeachComment on above:Performed By: #### CDP, TROPI, BMP, CRP, SED #### [facility] [address] [place] [address] Offline Cutter: KEMI Moran morphology finding Nom (Bld)NOT REPORTED NormalSelect Medical Specialty Hospital - AkronComment on above:Performed By: #### CDP, TROPI, BMP, CRP, SED #### [facility] [address] [place] [address] Offline Cutter: MARC Moran MorphologyNOT REPORTEDNormalSelect Medical Specialty Hospital - AkronComment on above:Performed By: #### CDP, TROPI, BMP, CRP, SED #### [facility] [address] [place] [address] Offline Cutter: JULIEN Moranalcium, Ionicon 75-01-8472Unzkswf [Mass/Vol] 1.09 mmol/LLow1.13-1.33MerCommunity Hospital of Long BeachComment on above: Performed By: #### CDP, TROPI, BMP, CRP, SED #### [facility] [address] [place] [address] Offline Cutter: Nikko Morangnesiumon 57-19-9576Apvzouzse [Mass/Vol]1.8 mg/dLNormal1.6-2.6[facility] Of GardenaComment on above:Performed By: #### CDP, TROPI, BMP, CRP, SED #### [facility] [address] [place] [address] [phone] Offline Cutter: Campos Escobedo MDMycoplasma Ab, IgMon 74-37-3189Acsbldxtdk Ab, IgM0.40Normal<0.91[facility] - AkronComment on above:Result Comment: Reference Range: <=0.90 Negative 0.91-1.09 Equivocal >=1.10 PositivePerformed By: #### CDP, TROPI, BMP, CRP, SED #### [facility] [address] [place], [place] [phone] Offline Cutter: Mau Moran [phone] Coag (PPP) [Relative time]1.0 {INR}NormalSelect Medical Specialty Hospital - AkronComment on above:Result Comment: Therapeutic Range: Moderate Anticoagulant Intensity: INR = 2.0-3.0 High Anticoagulant Intensity: INR = 2.5-3.5Performed By: #### CDP, TROPI, BMP, CRP, SED #### [facility] [address] [place], [place] [phone] Offline Cutter: AKASH Moran Coag (PPP) [Time]10.7 sNormal9.0-12.0[facility] - AkronComment on above:Performed By: #### CDP, TROPI, BMP, CRP, SED #### [facility] [address] [place], [place] [phone] Offline Cutter: Kayode Moran Inorg.on 09-93-8546Qldyhzrwoh, Inorg.3.1 mg/dLNormal2.6-4.5[facility] - AkronComment on above: Performed By: #### CDP, TROPI, BMP, CRP, SED #### [facility] [address] [place] [address] [phone] Offline Cutter: Zahra Moran [phone] Coag (Bld) [Time]26.0 s Xnhhsq45.5-30.5[facility] - AkronComment on above:Performed By: #### CDP, IOCAL, PT, PTT, BMP, MG, MAIKEL, TSHX #### [address] [phone] Offline Cutter: Nina Moran Metabolic Profon 08-13-2019(cont.)Normal [facility] - AkronComment on above:Result Comment: Average GFR for 60-69 years old: 85 mL/min/1.73sq m Chronic Kidney Disease: <60 mL/min/1.73sq m Kidney failure: <15 mL/min/1.73sq m eGFR calculated using average adult body mass. Additional eGFR calculator available at: http://www.Appuri.Classiphix/multiple_crcl_2012.htmPerformed By: #### CDP, IOCAL, PT, PTT, BMP, MG, MAIKEL, TSHX #### [facility] [address] [place] [address] Offline Cutter: Daija Moran gap [Moles/Vol]14 mmol/LNormal9-17[facility] - AkronComment on above:Performed By: #### CDP, IOCAL, PT, PTT, BMP, MG, MAIKEL, TSHX #### [facility] [address] [place] [address] [phone] Offline Cutter: JULIEN Moranalcium [Mass/Vol]8.3 mg/dLLow8.6-10.4[facility] - AkronComment on above:Performed By: #### CDP, IOCAL, PT, PTT, BMP, MG, MAIKEL, TSHX #### [facility] [address] [place] [address] [phone] Offline Cutter: JULIEN Moranhloride [Moles/Vol]97 mmol/RFhr25-928DfpaaSelect Medical Specialty Hospital - AkronComment on above:Performed By: #### CDP, IOCAL, PT, PTT, BMP, MG, MAIKEL, TSHX #### [address] [address] Offline Cutter: Campos Escobedo MDCO2 [Moles/Vol]23 mmol/EGnycti82-30YajuhSelect Medical Specialty Hospital - AkronComment on above:Performed By: #### CDP, IOCAL, PT, PTT, BMP, MG, MAIKEL, TSHX #### [place] [address] Offline Cutter: JULIEN Moranreatinine [Mass/Vol]0.51 mg/dLNormal0.50-0.90 [facility] - AkronComment on above:Performed By: #### CDP, IOCAL, PT, PTT, BMP, MG, MAIKEL, TSHX #### [place] [address] Offline Cutter: Campos Escobedo MDGFR, Amer>60Normal>60[facility] - AkronComment on above:Performed By: #### CDP, IOCAL, PT, PTT, BMP, MG, MAIKEL, TSHX #### [address] [address] Offline Cutter: Campos Escobedo MDGFR,non Amer>60Normal>60[facility] - AkronComment on above:Performed By: #### CDP, IOCAL, PT, PTT, BMP, MG, MAIKEL, TSHX #### [place] [address] Offline Cutter: Campos Escobedo MDGlucose [Mass/Vol]192 mg/pYYkta68-50JxgjzMemorial Medical CenterComment on above:Performed By: #### CDP, IOCAL, PT, PTT, BMP, MG, MAIKEL, TSHX #### [address] [address] Offline Cutter: CAROLINA Moranotassium [Moles/Vol]3.3 mmol/LLow3.7-5.3MMemorial Medical CenterComment on above:Performed By: #### CDP, IOCAL, PT, PTT, BMP, MG, MAIKEL, TSHX #### [address] [address] Offline Cutter: Campos Escobedo MDSodium [Moles/Vol]134 mmol/XPos905-087TayvfSelect Medical Specialty Hospital - AkronComment on above:Performed By: #### CDP, IOCAL, PT, PTT, BMP, MG, MAIKEL, TSHX #### [address] [address] Offline Cutter: Rl Moran nitrogen [Mass/Vol]8 mg/dLNormal8-23[facility] - AkronComment on above:Performed By: #### CDP, IOCAL, PT, PTT, BMP, MG, MAIKEL, TSHX #### [address] [address] Offline Cutter: NITA Moran/JO ANN Arnett REPORTEDNormal9-20[facility] - AkronComment on above:Performed By: #### CDP, IOCAL, PT, PTT, BMP, MG, MAIKEL, TSHX #### [address] [address] Offline Cutter: VITOR Morantaging:NOT REPORTEDNormalSelect Medical Specialty Hospital - AkronComment on above:Performed By: #### CDP, IOCAL, PT, PTT, BMP, MG, MAIKEL, TSHX #### [address] [address] Offline Cutter: Campos Escobedo MDAnion gap [Moles/Vol]15 mmol/LNormal9-17[facility] - AkronComment on above:Performed By: #### CDP, TROPI, BMP, CRP, SED #### [facility] [address] [place] [address] Offline Cutter: Campos Escobedo MDCalcium [Mass/Vol]8.4 mg/dLLow8.6-10.4Select [facility] Hospital - AkronComment on above:Performed By: #### CDP, TROPI, BMP, CRP, SED #### [facility] [address] [place] [address] Offline Cutter: Campos Escobedo MDChloride [Moles/Vol]98 mmol/PEqzdom00-629GnrstSelect Medical Specialty Hospital - AkronComment on above:Performed By: #### CDP, TROPI, BMP, CRP, SED #### [place] [address] Offline Cutter: Campos Escobedo MDCO2 [Moles/Vol]24 mmol/GLanzfo77-82FaqxySelect Medical Specialty Hospital - AkronComment on above:Performed By: #### CDP, TROPI, BMP, CRP, SED #### [address] [address] Offline Cutter: Campos Escobedo MDCreatinine [Mass/Vol]0.53 mg/dLNormal0.50-0.90 [facility] - AkronComment on above:Performed By: #### CDP, TROPI, BMP, CRP, SED #### [facility] [address] [place] [address] Offline Cutter: CHANDA Moran, Amer>60Normal>60[facility] - AkronComment on above:Performed By: #### CDP, TROPI, BMP, CRP, SED #### [facility] [address] [place] [address] Offline Cutter: CHANDA Moran,non Amer>60Normal>60[facility] - AkronComment on above:Performed By: #### CDP, TROPI, BMP, CRP, SED #### [facility] [address] [place] [address] Offline Cutter: Campos Escobedo MDGlucose [Mass/Vol]169 mg/nULoqv13-34RxyiuMemorial Medical CenterComment on above:Performed By: #### CDP, TROPI, BMP, CRP, SED #### [facility] [address] [place] [address] Offline Cutter: CAROLINA Moranotassium [Moles/Vol]3.3 mmol/LLow3.7-5.3MMemorial Medical CenterComment on above:Performed By: #### CDP, TROPI, BMP, CRP, SED #### [facility] [address] [place] [address] Offline Cutter: VITOR Moranodium [Moles/Vol]137 mmol/IYfsbae698-288TblkiSelect Medical Specialty Hospital - AkronComment on above:Performed By: #### CDP, TROPI, BMP, CRP, SED #### [facility] [address] [place] [address] Offline Cutter: Campos Escobedo MDUrea nitrogen [Mass/Vol]8 mg/dLNormal8-23[facility] - AkronComment on above:Performed By: #### CDP, TROPI, BMP, CRP, SED #### [facility] [address] [place] [address] Offline Cutter: Campos Escobedo MD(cont.)[facility] Comment on above:Result Comment: Average GFR for 60-69 years old: 85 mL/min/1.73sq m Chronic Kidney Disease: <60 mL/min/1.73sq m Kidney failure: <15 mL/min/1.73sq m eGFR calculated using average adult body mass. Additional eGFR calculator available at: http://www.Appuri.com/multiple_crcl_2012.htmPerformed By: #### CDP, TROPI, BMP, CRP, SED #### [facility] [address] [place] [address] Offline Cutter: NITA Moran/JO ANN Arnett REPORTEDNormal9-20[facility] - AkronComment on above:Performed By: #### CDP, TROPI, BMP, CRP, SED #### [facility] [address] [place] [address] Offline Cutter: VITOR Morantaging:NOT REPORTEDNormalSelect Medical Specialty Hospital - AkronComment on above:Performed By: #### CDP, TROPI, BMP, CRP, SED #### [facility] [address] [place] [address] Offline Cutter: JULIEN Moran-Reactive Proteinon [id number] [Mass/Vol] 169.2 mg/LHigh0.0-5.0[facility] - AkronComment on above:Performed By: #### CDP, TROPI, BMP, CRP, SED #### [facility] [address] [place] [address] Offline Cutter: IGOR Moran with Diffon [id number]. Basophil0.06 k/uL Normal0.00-0.20[facility] - AkronComment on above:Performed By: #### CDP, IOCAL, PT, PTT, BMP, MG, MAIKEL, TSHX #### [facility] [address] [place] [address] Offline Cutter: Miriam Moran.Imm.Granulocyte0.08 k/uLNormal0.00-0.30[facility] - AkronComment on above:Performed By: #### CDP, IOCAL, PT, PTT, BMP, MG, MAIKEL, TSHX #### [facility] [address] [place] [address] Offline Cutter: Miriam Moran.Neutrophil (Seg)7.45 k/uLNormal1.50-8.10 [facility] - AkronComment on above:Performed By: #### CDP, IOCAL, PT, PTT, BMP, MG, MAIKEL, TSHX #### [place] [address] Offline Cutter: Campos Escobedo MDBasophils/100 WBC (Bld)1 %Normal0-2MMemorial Medical CenterComment on above:Performed By: #### CDP, IOCAL, PT, PTT, BMP, MG, MAIKEL, TSHX #### [place] [address] Offline Cutter: Campos Escobedo MDEosinophils (Bld) [#/Vol]0.35 10*3/uLNormal 0.00-0.44[facility] - AkronComment on above:Performed By: #### CDP, IOCAL, PT, PTT, BMP, MG, MAIKEL, TSHX #### [place] [address] Offline Cutter: YARELI Moranosinophils/100 WBC (Bld)4 %Normal1-4[facility] Hospital - AkronComment on above:Performed By: #### CDP, IOCAL, PT, PTT, BMP, MG, MAIKEL, TSHX #### [place] [address] Offline Cutter: Campos Escobedo MDErythrocyte distribution width (RBC) [Ratio]12.4 %Bkhelk18.8-14.4[facility] Hospital - AkronComment on above:Performed By: #### CDP, IOCAL, PT, PTT, BMP, MG, MAIKEL, TSHX #### [place] [address] Offline Cutter: Campos Escobedo MDHematocrit (Bld) [Volume fraction]33.5 %Low 36.3-47.1MMemorial Medical CenterComment on above:Performed By: #### CDP, IOCAL, PT, PTT, BMP, MG, MAIKEL, TSHX #### [address] [address] Offline Cutter: Campos Escobedo MDHemoglobin (Bld) [Mass/Vol]10.6 g/dLLow11.9-15.1 [facility] - AkronComment on above:Performed By: #### CDP, IOCAL, PT, PTT, BMP, MG, MAIKEL, TSHX #### [address] [address] Offline Cutter: Campos Escobedo MDImmature granulocytes (Bld) [#/Vol]1 %Fjfh0VmyctSelect Medical Specialty Hospital - AkronComment on above:Performed By: #### CDP, IOCAL, PT, PTT, BMP, MG, MAIKEL, TSHX #### [place] [address] Offline Cutter: Campos Escobedo MDLymphocytes (Bld) [#/Vol]1.20 10*3/uLNormal 1.10-3.70[facility] - AkronComment on above:Performed By: #### CDP, IOCAL, PT, PTT, BMP, MG, MAIKEL, TSHX #### [place] [address] Offline Cutter: Leyla Moranmphocytes/100 WBC (Bld)12 %Gij57-13RgbbnSelect Medical Specialty Hospital - AkronComment on above:Performed By: #### CDP, IOCAL, PT, PTT, BMP, MG, MAIKEL, TSHX #### [place] [address] Offline Cutter: PADMINI MoranCH (RBC) [Entitic mass]30.1 dxFpdyek56.2-33.5 [facility] - AkronComment on above:Performed By: #### CDP, IOCAL, PT, PTT, BMP, MG, MAIKEL, TSHX #### [address] [address] Offline Cutter: PADMINI MoranCHC (RBC) [Mass/Vol]31.6 g/hSNsujbb33.4-34.8 [facility] - AkronComment on above:Performed By: #### CDP, IOCAL, PT, PTT, BMP, MG, MAIKEL, TSHX #### [address] [address] Offline Cutter: PADMINI MoranCV (RBC) [Entitic vol]95.2 nZRqoeru95.6-102.9 [facility] - AkronComment on above:Performed By: #### CDP, IOCAL, PT, PTT, BMP, MG, MAIKEL, TSHX #### [address] [address] Offline Cutter: PADMINI Moranonocytes (Bld) [#/Vol]0.83 10*3/uLNormal 0.10-1.20[facility] - AkronComment on above:Performed By: #### CDP, IOCAL, PT, PTT, BMP, MG, MAIKEL, TSHX #### [address] [address] Offline Cutter: PADMINI Moranonocytes/100 WBC (Bld)8 %Normal3-12[facility] - AkronComment on above:Performed By: #### CDP, IOCAL, PT, PTT, BMP, MG, MAIKEL, TSHX #### [address] [address] Offline Cutter: Campos Escobedo MDNeutrophil (Seg)74 %Dzpr21-79IllrkSelect Medical Specialty Hospital - AkronComment on above:Performed By: #### CDP, IOCAL, PT, PTT, BMP, MG, MAIKEL, TSHX #### [address] [address] Offline Cutter: KAREN Moran Automated0.0 per 100 WBCNormal0.0[facility] - AkronComment on above:Performed By: #### CDP, IOCAL, PT, PTT, BMP, MG, MAIKEL, TSHX #### [facility] [address] [place] [address] Offline Cutter: Kemal Moran mean volume (Bld) [Entitic vol]9.1 fL Normal8.1-13.5[facility] - AkronComment on above:Performed By: #### CDP, IOCAL, PT, PTT, BMP, MG, MAIKEL, TSHX #### [facility] [address] [place] [address] Offline Cutter: Carlton Moran (Bld) [#/Vol]487 10*3/iYIkei484-803 [facility] - AkronComment on above:Performed By: #### CDP, IOCAL, PT, PTT, BMP, MG, MAIKEL, TSHX #### [facility] [address] [place] [address] Offline Cutter: KEMI Moran (Bld) [#/Vol]3.52 10*6/uLLow3.95-5.11[facility] - AkronComment on above:Performed By: #### CDP, IOCAL, PT, PTT, BMP, MG, MAIKEL, TSHX #### [facility] [address] [place] [address] Offline Cutter: MARC Moran (Bld) [#/Vol]10.0 10*3/uLNormal3.5-11.3MMemorial Medical CenterComment on above:Performed By: #### CDP, IOCAL, PT, PTT, BMP, MG, MAIKEL, TSHX #### [facility] [address] [place] [address] Offline Cutter: Campos Madoff, MDAuto Diff PerformedNOT REPORTEDNormalMerCommunity Hospital of Long BeachComment on above:Performed By: #### CDP, IOCAL, PT, PTT, BMP, MG, MAIKEL, TSHX #### [facility] [address] [place] [address] Offline Cutter: Carlton Moran (Bld) [#/Vol]NOT REPORTEDNormalSelect Medical Specialty Hospital - AkronComment on above:Performed By: #### CDP, IOCAL, PT, PTT, BMP, MG, MAIKEL, TSHX #### [facility] [address] [place] [address] Offline Cutter: KEMI Moran morphology finding Nom (Bld)NOT REPORTED NormalSelect Medical Specialty Hospital - AkronComment on above:Performed By: #### CDP, IOCAL, PT, PTT, BMP, MG, MAIKEL, TSHX #### [facility] [address] [place] [address] Offline Cutter: MARC Moran MorphologyNOT REPORTEDHolzer Medical Center – JacksonComment on above:Performed By: #### CDP, IOCAL, PT, PTT, BMP, MG, MAIKEL, TSHX #### [facility] [address] [place] [address] Offline Cutter: MDAbs. Luisa Basophil0.06 k/uLNormal0.00-0.20[facility] AkronComment on above:Performed By: #### CDP, TROPI, BMP, CRP, SED #### [facility] [address] [place] [address] Offline Cutter: MDAbs. LuisaImm.Granulocyte0.08 k/uLNormal0.00-0.30[facility] - AkronComment on above:Performed By: #### CDP, TROPI, BMP, CRP, SED #### [facility] [address] [place] [address] Offline Cutter: Campos Madoff, MDAbs.Neutrophil (Seg)6.97 k/uLNormal1.50-8.10 [facility] - AkronComment on above:Performed By: #### CDP, TROPI, BMP, CRP, SED #### [address] [address] Offline Cutter: Campos Escobedo MDBasophils/100 WBC (Bld)1 %Normal0-2MMemorial Medical CenterComment on above:Performed By: #### CDP, TROPI, BMP, CRP, SED #### [place] [address] Offline Cutter: Campos Escobedo MDEosinophils (Bld) [#/Vol]0.35 10*3/uLNormal 0.00-0.44[facility] - AkronComment on above:Performed By: #### CDP, TROPI, BMP, CRP, SED #### [place] [address] Offline Cutter: YARELI Moranosinophils/100 WBC (Bld)4 %Normal1-4[facility] - AkronComment on above:Performed By: #### CDP, TROPI, BMP, CRP, SED #### [place] [address] Offline Cutter: Campos Escobedo MDErythrocyte distribution width (RBC) [Ratio]12.5 %Tbocmy24.8-14.4[facility] - AkronComment on above:Performed By: #### CDP, TROPI, BMP, CRP, SED #### [place] [address] Offline Cutter: Campos Escobedo MDHematocrit (Bld) [Volume fraction]32.3 %Low 36.3-47.1MMemorial Medical CenterComment on above:Performed By: #### CDP, TROPI, BMP, CRP, SED #### [address] [address] Offline Cutter: Campos Escobedo MDHemoglobin (Bld) [Mass/Vol]10.6 g/dLLow11.9-15.1 [facility] - AkronComment on above:Performed By: #### CDP, TROPI, BMP, CRP, SED #### [place] [address] Offline Cutter: Campos Escobedo MDImmature granulocytes (Bld) [#/Vol]1 %Gxvm1XozuwSelect Medical Specialty Hospital - AkronComment on above:Performed By: #### CDP, TROPI, BMP, CRP, SED #### [place] [address] Offline Cutter: Campos Escobedo MDLymphocytes (Bld) [#/Vol]1.62 10*3/uLNormal 1.10-3.70[facility] - AkronComment on above:Performed By: #### CDP, TROPI, BMP, CRP, SED #### [place] [address] Offline Cutter: Leyla Moranmphocytes/100 WBC (Bld)16 %Syu65-32NjbnlSelect Medical Specialty Hospital - AkronComment on above:Performed By: #### CDP, TROPI, BMP, CRP, SED #### [place] [address] Offline Cutter: PADMINI MoranCH (RBC) [Entitic mass]30.9 jxEjxbcg07.2-33.5 [facility] - AkronComment on above:Performed By: #### CDP, TROPI, BMP, CRP, SED #### [address] [address] Offline Cutter: PADMINI MoranCHC (RBC) [Mass/Vol]32.8 g/oQRngtrh23.4-34.8 [facility] AkronComment on above:Performed By: #### CDP, TROPI, BMP, CRP, SED #### [address] [address] Offline Cutter: PADMINI MoranCV (RBC) [Entitic vol]94.2 xJKbjjnh35.6-102.9 [facility] AkronComment on above:Performed By: #### CDP, TROPI, BMP, CRP, SED #### [address] [address] Offline Cutter: PADMINI Moranonocytes (Bld) [#/Vol]0.96 10*3/uLNormal 0.10-1.20[facility] - AkronComment on above:Performed By: #### CDP, TROPI, BMP, CRP, SED #### [place] [address] Offline Cutter: PADMINI Moranonocytes/100 WBC (Bld)10 %Normal3-12[facility] - AkronComment on above:Performed By: #### CDP, TROPI, BMP, CRP, SED #### [address] [address] Offline Cutter: Campos Escobedo MDNeutrophil (Seg)68 %Ysxw25-61AdueoSelect Medical Specialty Hospital - AkronComment on above:Performed By: #### CDP, TROPI, BMP, CRP, SED #### [address] [address] Offline Cutter: Campos Escobedo MDNRBC Automated0.0 per 100 WBCNormal0.0[facility] - AkronComment on above:Performed By: #### CDP, TROPI, BMP, CRP, SED #### [address] [address] Offline Cutter: CAROLINA Moranlatelet mean volume (Bld) [Entitic vol]8.7 fL Normal8.1-13.5[facility] - AkronComment on above:Performed By: #### CDP, TROPI, BMP, CRP, SED #### [facility] [address] [place] [address] Offline Cutter: Carlton Moran (Bld) [#/Vol]460 10*3/sIZino400-266 [facility] - AkronComment on above:Performed By: #### CDP, TROPI, BMP, CRP, SED #### [facility] [address] [place] [address] Offline Cutter: KEMI Moran (Bld) [#/Vol]3.43 10*6/uLLow3.95-5.11[facility] - AkronComment on above:Performed By: #### CDP, TROPI, BMP, CRP, SED #### [facility] [address] [place] [address] Offline Cutter: MARC Moran (Bld) [#/Vol]10.0 10*3/uLNormal3.5-11.3MMemorial Medical CenterComment on above:Performed By: #### CDP, TROPI, BMP, CRP, SED #### [facility] [address] [place] [address] Offline Cutter: Nenita Moran PerformedNOT REPORTEDNormalSelect Medical Specialty Hospital - AkronComment on above:Performed By: #### CDP, TROPI, BMP, CRP, SED #### [facility] [address] [place] [address] Offline Cutter: Carlton Moran (Bld) [#/Vol]NOT REPORTEDHolzer Medical Center – JacksonComment on above:Performed By: #### CDP, TROPI, BMP, CRP, SED #### [facility] [address] [place] [address] Offline Cutter: KEMI Moran morphology finding Nom (Bld)NOT REPORTED [facility] – JacksonComment on above:Performed By: #### CDP, TROPI, BMP, CRP, SED #### [facility] [place] [address] Offline Cutter: MARC Moran MorphologyNOT REPORTEDNoClinton Memorial HospitalComment on above:Performed By: #### CDP, TROPI, BMP, CRP, SED #### [facility] [address] [place] [address] Offline Cutter: JULIEN Moranalcium, Ionicon 52-00-4015Tsauncr [Mass/Vol] 1.08 mmol/LLow1.13-1.33[facility] - AkronComment on above: Performed By: #### CDP, IOCAL, PT, PTT, BMP, MG, MAIKEL, TSHX #### [facility] [address] [place] [address] Offline Cutter: Campos Escobedo MDFlu A/B Ag Detectionon 34-11-3340Hrs A/B Ag DetectionSpecimen Description .NASOPHARYNGEAL SWAB Special Requests NOT REPORTED Direct Exam PRESUMPTIVE NEGATIVE for Influenza A + B antigens. PCR testing to confirm this result is available upon request. Specimen will be saved in the laboratory for 7 days. Please call [phone] if PCR testing is indicated. Report Status FINAL 08/13/2019NoClinton Memorial HospitalComment on above:Performed By: #### CDP, TROPI, BMP, CRP, SED #### [facility] [address] [place] [id number] Offline Cutter: PADMINI MoranRSA, DNA, Nasalon 35-72-8680JCVO, DNA, Nasal NEGATIVE: MRSA DNA not detected by nucleic acid amplification.NormalNMMemorial Health System Marietta Memorial HospitalComment on above:Result Comment: Results should be used as an adjunct to nosocomial control efforts to identify patients needing enhanced precautions. The test is not intended to identify patients with staphylococcal infections. Results should not be used to guide or monitor treatment for MRSA infections. Performed By: #### CDP, TROPI, BMP, CRP, SED #### [facility] [address] [place] [address] Offline Cutter: Marizol Moran Description.NASAL SWABNormalMerCommunity Hospital of Long BeachComment on above:Performed By: #### CDP, TROPI, BMP, CRP, SED #### [facility] [address] [place] [address] Offline Cutter: Nikko Morangnesiumon 11-13-9194Uvqocpbdu [Mass/Vol]1.8 mg/dLNormal1.6-2.6[facility] Of GardenaComment on above:Performed By: #### CDP, TROPI, BMP, CRP, SED #### [place] [address] Offline Cutter: Mau Moran 22-12-7186PCU Coag (PPP) [Relative time]1.0 {INR}NormalSelect Medical Specialty Hospital - AkronComment on above:Result Comment: Therapeutic Range: Moderate Anticoagulant Intensity: INR = 2.0-3.0 High Anticoagulant Intensity: INR = 2.5-3.5Performed By: #### CDP, IOCAL, PT, PTT, BMP, MG, MAIKEL, TSHX #### [address] [address] Offline Cutter: AKASH Moran Coag (PPP) [Time]11.0 sNormal9.0-12.0[facility] - AkronComment on above:Performed By: #### CDP, IOCAL, PT, PTT, BMP, MG, MAIKEL, TSHX #### [address] [address] Offline Cutter: Kayode Moran Inorg.on 52-07-3797Zxojwjxhdk, Inorg.2.8 mg/dLNormal2.6-4.5MerCommunity Hospital of Long BeachComment on above: Performed By: #### CDP, TROPI, BMP, CRP, SED #### [facility] [address] [place] [address] Offline Cutter: VITOR Moranedimentation Rateon 37-09-6191Otlxkagrfcvka Tapk838 mmHigh0-20MerCommunity Hospital of Long BeachComment on above:Performed By: #### CDP, TROPI, BMP, CRP, SED #### [facility] [address] [place] [address] Offline Cutter: ANNALISA Moran w/reflex to FT4on 43-82-0426YSF Qn4.54 m[IU]/LNormal0.30-5.00[facility] - AkronComment on above:Performed By: #### CDP, TROPI, BMP, CRP, SED #### [facility] [address] [place] [address] Offline Cutter: Christina Moran 78-30-0310Gugwczax IGuscardiac [Mass/Vol]6 ng/LNormal0-14[facility] - AkronComment on above: Result Comment: High Sensitivity Troponin values cannot be compared with other Troponin methodologies. Patients with high levels of Biotin oral intake (i.e >5mg/day) may have falsely decreased Troponin levels. Samples collected within 8 hours of biotin intake may require additional information for diagnosis.Performed By: #### CDP, TROPI, BMP, CRP, SED #### [facility] [address] [place] [address] Offline Cutter: Gwen Moran I.cardiac [Mass/Vol]NOT REPORTEDNormal <0.03MerCommunity Hospital of Long BeachComment on above:Performed By: #### CDP, TROPI, BMP, CRP, SED #### [facility] [address] [place] [id number] Offline Cutter: DAYANA Moran CHEST PORTABLEon [id number] CHEST PORTABLE EXAMINATION: ONE XRAY VIEW OF [...] Signed by: Kai Elias MD 08/13/19 Final resultNormalSelect Medical Specialty Hospital - [facility]ron Vital Signs Date TimeVital SignValuePerforming CxvvjluokLqktgqob87-21-1617 09:37-0400Body qhpsgy410.6 cmAllison Petznick DO Work Phone: [employer] Osmxgtfffh04-34-1022 09:37-0400Body mass index (BMI) [Ratio]32.75 kg/e6Ywvumwq Petznick DO Work Phone: Kn[facility]usParkland Health CenterSfpdxonsmw72-91-9298 09:37-0400Body temperature 97.9 [degF]Halle Petznick DO Work Phone: [phone] Health CenterUsgpxpgyhw47-23-5711 09:37-0400Body pibsum80.55 kgAllison Petznick DO Work Phone: [employer] Mjqaruvfdb41-99-0357 09:37-0400Diastolic blood snjzhapn51 mm[Hg]Halle Petznick DO Work Phone: FatsomaRmwsqebqph94-00-2348 09:37-0400Heart rate71 /min Halle Petznick DO Work Phone: [employer] Lfgactjxil93-55-8870 09:37-2356VzQ5% (BldA) [Mass fraction]97 %Halle Petznick DO Work Phone: noOsmopureIasyvxgtfv84-54-6723 09:37-0400Systolic blood qyhruvmm270 mm[Hg]Halle Petznick DO Work Phone: noms Hszyazuyki76-77-0367 16:18-0400Diastolic blood bngpzuqj98 mm[Hg]Monika Castillo BOILER ERECTOR Work Phone: [facility] HospitalZeqwyjggis46-64-5363 16:18-0400Systolic blood fcemselb699 mm[Hg]Monika Castillo BOILER ERECTOR Work Phone: [facility] HospitalHvjdhsirqx29-49-1374 15:38-0400Body mass index (BMI) [Ratio]33.44 kg/m2Monika Castillo BOILER ERECTOR Work Phone: [facility] HospitalFayrmijkft21-20-4986 15:38-0400Body temperature 98.01 [degF]Monika Castillo BOILER ERECTOR Work Phone: [facility] HospitalKscusmmbwh77-22-1374 15:38-0400Body kgymsz59.36 kgLisa Castillo BOILER ERECTOR Work Phone: [facility] HospitalAzqtbuzpke76-94-8255 15:38-0400Heart rate81 /min Monika Castillo BOILER ERECTOR Work Phone: [facility] HospitalCfajpwpgok10-80-1238 15:38-0400Respiratory rate19 /minMonika Castillo BOILER ERECTOR Work Phone: [facility] HospitalDyywudfjgo82-24-1230 15:38-4722TxK2% (BldA) [Mass fraction]93 %Monika Castillo BOILER ERECTOR Work Phone: [facility] HospitalDvitkfjhsp67-80-7348 11:02-0400Body exfcus586.6 cmAllison Petznick DO Work Phone: noParkland Health CenterBptsyzqpkq29-13-4590 11:02-0400Body mass index (BMI) [Ratio]32.96 kg/m5Pqapyxh Petznick DO Work Phone: noParkland Health CenterJiuymaklcq27-99-0283 11:02-0400Body temperature 97.9 [degF]Halle Petznick DO Work Phone: noParkland Health CenterRnjqzasygv32-41-3096 11:02-0400Body xraqqn20.09 kgAllison Petznick DO Work Phone: noParkland Health CenterGodvzakndv62-72-5553 11:02-0400Diastolic blood ydmdjkvp59 mm[Hg]Halle Petznick DO Work Phone: noParkland Health CenterQhvigskdfa33-16-9702 11:02-0400Heart rate73 /min Halle Petznick DO Work Phone: noParkland Health CenterRbhgoozidi48-65-4023 11:02-2240XoN7% (BldA) [Mass fraction]93 %Halle Petznick DO Work Phone: noParkland Health CenterMcghwrkvdr70-92-0731 11:02-0400Systolic blood fgfiypky879 mm[Hg]Halle Petznick DO Work Phone: noParkland Health CenterKvquzaqtjj46-09-9690 14:51-0500Body rkxnsy150.6 Laineisa Anna BOILER ERECTOR Work Phone: noParkland Health CenterRpstdywwux43-95-8856 14:51-0500Body mass index (BMI) [Ratio]32.82 kg/m2Lisa Penelopez BOILER ERECTOR Work Phone: noParkland Health CenterWhhaqjtkwo85-52-5923 14:51-0500Body temperature 98.8 [degF]Monika Anna BOILER ERECTOR Work Phone: noParkland Health CenterTnkbahxltq25-83-5220 14:51-0500Body mhsjyq38.73 kgLisa Penelopez BOILER ERECTOR Work Phone: noParkland Health CenterHtioxdxnip09-18-3507 14:51-0500Diastolic blood mm[Hg]Monika Penelopez BOILER ERECTOR Work Phone: [facility] HospitalJkrrolqcgv67-23-7276 14:51-0500Heart rate78 /min Monika Demarhholz BOILER ERECTOR Work Phone: noParkland Health CenterBluhlprtne52-63-1500 14:51-0500Respiratory rate18 /minLisa Demarhholz BOILER ERECTOR Work Phone: noParkland Health CenterZzxfprjtnj85-32-7116 14:51-4511ZtK4% (BldA) [Mass fraction]94 %Monika Demarhholz BOILER ERECTOR Work Phone: [facility] [id number] 14:51-0500Systolic blood kbhvlxwa894 mm[Hg]Monika Negretebruna BOILER ERECTOR Work Phone: [facility] [id number] 10:18-0500Body .6 cmAllison Petznick DO Work Phone: [facility] [id number] 10:18-0500Body mass index (BMI) [Ratio]31.93 kg/z6Wmtkjew Petznick DO Work Phone: 1(992)[facility] [place], [place] [address]Gqapvmbfvd71-13-6899 10:18-0500Body temperature 97.9 [degF]Halle Petznick DO Work Phone: 1(130)[facility] [place], [place] [address]Rutoedtsjw29-72-6994 10:18-0500Body ybnkke31.37 kgAllison Petznick DO Work Phone: 1(310)[facility] [place], [place] [address]Htmspwyoxn27-14-0189 10:18-0500Diastolic blood lqajeuvv61 mm[Hg]Halle Petznick DO Work Phone: 1(109)[facility] [place], [place] [address]Suibnsrouo07-08-9825 10:18-0500Heart rate60 /min Halle Petznick DO Work Phone: 1(346)[facility] [place], [place] [address]Xmyeinpytp49-62-6965 10:18-2690KhD0% (BldA) [Mass fraction]94 %Halle Petznick DO Work Phone: 1(004)[facility] [place], [place] [address]Yyvpnzzvua00-00-3177 10:18-0500Systolic blood bjgyuztf543 mm[Hg]Halle Petznick DO Work Phone: 1(656)221-[address] [place], [place] [address]Qhouilrlur33-62-7617 10:41-0400Body iawawz808.56 cmC[facility]04[facility]2024 10:41-0400Body mass index (BMI) [Ratio]32.4 kg/s0PjgvyjowaCleveland Clinic Marymount Hospital04-11-2024 10:41-0400Body ouoakv61.72 kgC[facility]04-11-2024 10:41-0400Diastolic blood wgsjevih91 mm[Hg][facility]04-11-2024 10:41-0400 Heart rate71 /minC[facility]04-11-2024 10:41-0400Systolic blood mm[Hg][facility]12-12-2023 10:45-0500 Body qhuhjd573.56 cmCordell Guerrero Other [employer] Other 990048-47-7237 10:45-0500Body mass index (BMI) [Ratio] 30.86 kg/r6HtszfaCordell Masters Other [employer] Other 12-12-2023 10:45-0500Body ichlwxdqwye02.1 [degF]Cordell Masters Other [employer] Other 12-12-2023 10:45-0500Body egcihb26.56 kgCordell Masters Other [employer] Other 600740-79-8619 10:45-0500Diastolic blood jernnltw02 mm[Hg] Cordell Masters Other [employer] Other 12-12-2023 10:45-0500Systolic blood kfrvicxj599 mm[Hg] Cordell Masters Other [employer] Other Encounters Encounter DateEncounter TypeCare ProviderFacilityStart: 06-09-2025 End: 24-17-7696Uilume Lucio Castillo BOILER ERECTOR Work Phone: NOPY CW FMComment on above:Right foot pain (Primary Dx)Start: 05-29-2025 End: 30-16-3418Exbmfu outpatient visit 25 minutesHalle Figueroa DO Work Phone: NOK[facility] 230Comment on above: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); Type 2 diabetes mellitus with other circulatory complications (HCC); 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); Type 2 diabetes mellitus with stage 3a chronic kidney disease, with long-term current use of insulin (HCC)Start: 05-29-2025 End: 45-38-6470pgrppvijslCCTBCSO Jamel KAURGissel AvailableStart: 05-22-2025 End: 65-61-6409Qmxinpwxj Result EncounterLisa Aichholz BOILER ERECTOR Work Phone: noms External Department UnsolicitedStart: 05-22-2025 End: 75-32-1228Dpbyfxaqg Result EncounterLisa Aichholz BOILER ERECTOR Work Phone: noms External Department UnsolicitedStart: 05-21-2025 End: 51-04-5322Ricnkh OnlyLisa Aichholz BOILER ERECTOR Work Phone: noms CWM FMComment on above:Right foot pain (Primary Dx); Acute right ankle painStart: 05-06-2025 End: 39-55-2316Rjhfzzdbx Result EncounterLisa Aichholz BOILER ERECTOR Work Phone: noms External Department UnsolicitedStart: 05-06-2025 End: 90-88-7605Uwaelxjci Result EncounterLisa Aichholz BOILER ERECTOR Work Phone: noms External Department UnsolicitedStart: 03-22-2025 End: 37-88-2432Jmwckfnty Result EncounterLisa Aichholz BOILER ERECTOR Work Phone: noms External Department UnsolicitedStart: 03-22-2025 End: 20-81-1710Dgmhgiefa Result EncounterLisa Aichholz BOILER ERECTOR Work Phone: noms External Department UnsolicitedStart: 03-12-2025 End: 92-45-6314Pcrxzx outpatient visit 25 minutesLisa Aichholz BOILER ERECTOR Work Phone: noms CWM FMComment on above:Anxiety and depression (CMS/HCC) (Primary Dx); Class 1 obesity due to excess calories with serious comorbidity and body mass index (BMI) of 31.0 to 31.9 in adult; Hypothyroidism, unspecified type (CMS/HCC); Encounter for screening mammogram for malignant neoplasm of breast; Primary hypertension ([facility]/HCC); Type 2 diabetes mellitus with other circulatory complications; Vitamin D deficiencyStart: 03-12-2025 End: 20-07-7295behjnssvwkLSJB DEMARHHOLKAMARIot AvailableStart: 01-26-2025 End: 96-58-7126KcjyhjMcgu Aichholz BOILER ERECTOR Work Phone: NOM[facility] CWM FMComment on above:Primary hypertension (CMS/HCC)Start: 12-26-2024 End: 87-06-4858Tdynnr outpatient visit 25 minutesHalle Jamel Vincent GOVEA Work Phone: [facility] SWS FM 230Comment on above: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)Start: 12-26-2024 End: 47-17-9454jldldlahcuYKJVCVYSudha Dominguez AvailableStart: 12-11-2024 End: 65-64-3520ZkevlcMlxl Aichholz BOILER ERECTOR Work Phone: [facility] CWM FMComment on above:Vitamin D deficiencyStart: 12-06-2024 End: 33-94-3404FwdkkcPkqj Aichholz BOILER ERECTOR Work Phone: [facility] CWM FMComment on above:Vitamin D deficiencyStart: 11-20-2024 End: 07-27-1989Zgrpfl outpatient new 45 minutesMary Kay Womack BOILER ERECTOR Work Phone: [facility] SWS ORTHOComment on above:Impingement of left shoulder (Primary Dx); Left shoulder pain, unspecified chronicity; Arthritis of left acromioclavicular jointStart: 11-20-2024 End: 63-86-9748jiqwvxtkyfYMRTK T OLSENNot AvailableStart: 11-20-2024 End: 97-83-4560Anvfni flowsheetMary Kay Womack BOILER ERECTOR Work Phone: [facility] SWS ORTHOStart: 11-20-2024 End: 91-32-2171Qdcdhb flowsheetMary Kay Womack BOILER ERECTOR Work Phone: noms SWS ORTHOStart: 11-13-2024 End: 22-53-3579Dwqbrsknm Result EncounterLisa Aichholz BOILER ERECTOR Work Phone: noms External Department UnsolicitedStart: 11-13-2024 End: 50-88-6906Ogpakdiej Result EncounterLisa Aichholz BOILER ERECTOR Work Phone: noms External Department UnsolicitedStart: 11-13-2024 End: 90-97-1711CekdbpAaci Aichholz BOILER ERECTOR Work Phone: noms CWM FMComment on above:Vitamin D deficiency (Primary Dx)Start: 11-08-2024 End: 18-12-0872Kdrwtu OnlyLisa Aichholz BOILER ERECTOR Work Phone: noms CWM FMComment on above:Hypocalcemia (Primary Dx) Start: 11-07-2024 End: 89-24-1476Hsljpcwot Result EncounterLisa Aichholz BOILER ERECTOR Work Phone: noms External Department UnsolicitedStart: 11-07-2024 End: 92-88-0244Rujuedgdn Result EncounterLisa Aichholz BOILER ERECTOR Work Phone: noms External Department UnsolicitedStart: 10-24-2024 End: 63-29-9616Ugyofv outpatient visit 25 minutesLisa Aichholz BOILER ERECTOR Work Phone: noms CWM FMComment on above:Primary hypertension (CMS/HCC) (Primary Dx); 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/HCC); long-term (current) use of insulin (CMS/HCC); Other specified diabetes mellitus without complications (CMS/HCC); 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); Anxiety and depression (CMS/HCC); Hypothyroidism, unspecified type (CMS/HCC); Pericardial effusion; Cerebrovascular accident (CVA), unspecified mechanism (CMS/HCC); Chronic left shoulder painStart: 10-24-2024 End: 69-15-1660upffgtllwhZDQP AICHHOLZNot AvailableStart: 10-24-2024 End: 71-38-7483Ftmgih flowsheetLisa Aichholz BOILER ERECTOR Work Phone: NOAV CWM FMStart: 10-24-2024 End: 93-59-4267Qmchxq flowsheetLisa Aichholz BOILER ERECTOR Work Phone: NOEN CWM FMStart: 08-23-2024 End: 46-11-2601Bhdkzu outpatient visit 25 minutesAlljoshua Figueroa DO Work Phone: [facility] SWS FM 230Comment on above: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); Long-term insulin use ([facility])Start: 08-23-2024 End: 15-45-5808jvogadfnzuJUOFPIK M PETZNICKNot AvailableStart: 10-68-9731Rwmijav encounter procedureHalle Figueroa DO Work Phone: noms HealthcareStart: 01-25-2024 End: 83-43-8908kzzwvskrwzGqwnuuqpzBarnesville Hospital Work Phone: Start: 01-25-2024 End: 90-53-5847Peksrye encounter procedureC[facility] Work Phone: Start: 86-99-0461Erc-patient / Non-visitCape [facility]-[employer] Work Phone: Start: 11-02-2023 End: 46-08-2439zknppfcxvpVaztia Braun Other [employer] Other Start: 72-75-6390Qwjqwcobl encounterCordell Tai [facility] Hospitaltart: 10-05-2023 End: 64-08-1670lvrghhmejtBuferr Braun Other [employer] Other Start: 17-70-4540Sjbmhxdta encounterMarcimarisa Black [facility] ClinicStart: 09-26-2023 End: 48-68-7534lecfxbtpuzCjhkkt Masters Other [employer] Other Start: 17-16-5281Znmery outpatient visit [address] [facility] ClinicStart: 08-18-2023 End: 16-52-0724fsgqzxkwxmIMALA ALSt. Mary's Medical Center HospitalStart: 08-17-2023 End: 43-47-4668axkcpmpweeQOKFW [facility] HospitalStart: 08-02-2023 End: 45-91-7027pkwwfeekjaFxjzci Masters Other [employer] Other Start: 81-36-2110Vrlbvjbjo encounterMarcimarisa Black [facility] ClinicStart: 07-13-2023 End: 24-92-5005tlfgjbthnuOxxopg Masters Other [employer] Other Start: 92-53-5846Hdabyjxqz encounterMarcimarisa Black [facility] ClinicStart: 03-14-2023 End: 59-17-0518irlrouwpssHkoxay Masters Other [employer] Other Start: 43-56-5176Vtuihnvzs encounterMarcia Zaire [facility] ClinicStart: 03-10-2023 End: 00-95-1837diggbeuiwhSL CORDELL MASTERSFacility:R6Clbou: 98-09-8766Pvpjwswyj for general adult medical examination without abnormal findingsDR CORDELL MASTERS [facility] Centertart: 04-08-2022 End: 78-36-7355ufhephndtcOZ CORDELL MASTERSFacility:W4Dxmat: 04-08-2022 End: 42-76-9183Vuvcjilfj for general adult medical examination without abnormal findingsDR CORDELL MASTERSFacility:K2Nlkko: 10-24-2019 End: 66-22-7969Jpbbnmi encounter procedureNORA LOPEZCleveland Clinic Lutheran Hospitaltart: 10-24-2019 End: 17-00-7460Fymqjngaas hospital visit by Christiane Masters MD Work Phone: stvz LaboratoryComment on above:Coxsackie virus infectionStart: 10-21-2019 End: 59-96-5735Xyyjdvrydd hospital visit by [address] RadiologyComment on above:Pleural effusion on leftStart: 09-18-2019 End: 88-52-6922Xftdgnzrmn hospital visit by [facility]ST[facility] Comment on above:Coxsackie virus infectionStart: 09-06-2019 End: 90-40-2853Qxdaxnlcic hospital visit [facility] RadiologyStart: 09-04-2019 End: 68-75-2571Pwveyqa encounter procedureMANOLO Ornelas KATERINTriHealthtart: 09-04-2019 End: 46-14-5372Nljjjhmbii hospital visit by physicianStv Echo Rm 428STVZ Echo Comment on above:S/P pericardial window creation; Pericardial effusionStart: 08-13-2019 End: 42-96-6385Jhjtfodryp and management of inpatientSOregon State Tuberculosis Hospital Procedures DateProcedureProcedure DetailPerforming ClinicianStart: 97-70-0254Btgyfjccyh glycosylated b2iSkzodic Jamel Figueroa DO Work Phone: Start: 62-74-3007DZ ANKLE RT MIN 3VLisa Aichlingz BOILER ERECTOR Work Phone: Start: 06-64-9831SD FOOT RT MIN 3VLisa Anna BOILER ERECTOR Work Phone: Start: 23-01-5392LO TOMOSYNTHESIS SCREENING BILisa Anna BOILER ERECTOR Work Phone: Start: 98-94-8578RkpiqiskxweOxel Anna BOILER ERECTOR Work Phone: Start: 94-68-4240TCJ VITAMIN D 25 OHLisa Aichholz BOILER ERECTOR Work Phone: Start: 87-53-5061Ssyqrmvwni glycosylated z0zKvwnmdjjoshua Figueroa DO Work Phone: Start: 04-56-5728Tjwbgnkznghdtd aspir&/inj major jt/bursa w/usMary Kay Womack BOILER ERECTOR Work Phone: Start: 52-44-0663Xrffi shoulder complete minimum 2 viewsMary Kay Womack BOILER ERECTOR Work Phone: Start: 24-42-2966UWA VITAMIN D 25 OHLisa Aichholz BOILER ERECTOR Work Phone: Start: 46-77-1614QUI CBC WITH AUTO DIFFLisa Aichholz BOILER ERECTOR Work Phone: Start: 02-84-0439Zrexbbfdls glycosylated l4jLfrkzhfHalle Figueroa DO Work Phone: Start: 45-80-8970AtfkrwxikyzVekjrbw Petkamariick DO Work Phone: Start: 87-18-8955AqzupluxfxsKdjeagf Petznick DO Work Phone: Start: 04-76-2789Pejuulsu enterovirusSTEPHEN REINECK Start: 99-92-5610Vcgfchxfdr exam chest 2 viewsRaheel Jaxon BROWN Work Phone: Start: 64-12-1627Qbfj transthorc r-t 2d w/wo m-mode rec f-up/lmtdSTEPHEN REINECKStart: 02-25-4139EMWXYSSSTMIAII LIMITEDAdajamel Ornelas Katerin Work Phone: Start: 15-75-9246Exhp bld gluc mntr dev cleared fda spec home useSTEPHEN REINECKStart: 66-15-2665DDSTBHZEXBQKLNR REINECKStart: 34-82-9929Mrumi of magnesiumSTEPHEN REINECKStart: 19-19-0737Olwiv of phosphorus inorganicSTEPHEN REINECKStart: 44-80-7468Cemku metabolic panel calcium total BHARAT REINECKStart: 49-16-4735Rdxnw count complete auto&auto difrntl wbc BHARAT REINECKStart: 20-11-9788Wzhldas ionizedSTEPHEN REINECKStart: 08-24-2019 INCENTIVE SPIROMETRY RTSDOMONIQUE REINECKStart: 11-93-0749Uncxivgfudd timeSTEPSKYLAR REINECKStart: 08-55-4770Zbkosmhgowefbq time partial plasma/whole bloodSTEPSKYLAR OTOOLEECKStart: 16-91-8768MRPQOIFNWVJSSMX REINECKStart: 16-79-4543TMZBLBXJG SPIROMETRY RTSTEPSKYLAR REINECKStart: 90-47-7030JWUQRMORXKYHCVJ REINECKStart: 56-73-8953ZTZTHNVWY SPIROMETRY RTSTEPSKYLAR REINECKStart: 36-08-0043MCESWSBTB PATIENTSTEPSKYLAR REINECKStart: 88-00-3884HLNGHPPCIABKMOG REINECKStart: 08-24-2019 INCENTIVE SPIROMETRY RTSDOMONIQUE OTOOLEECKStart: 81-33-2807Azizwyf blood reagent stripSDOMONIQUE ECKStart: 35-77-0378VFOLDAQHJSDOXHI ASPIRUS KEWEENAW HOSPITALECKStart: 08-24-2019 INCENTIVE SPIROMETRY RTSTEPSKYLAR REINECKStart: 13-33-6762Jkkw bld gluc mntr dev cleared fda spec home useSTEPSKYLAR OTOOLEECKStart: 42-35-4935Ccwtpuispt exam chest single viewSTEPSKYLAR REINECKStart: 24-96-8962WHXQVITBIXMWMJZ REINECKStart: 49-42-2056YUFQCTJPM SPIROMETRY RTSDOMONIQUE OTOOLEECKStart: 79-61-7846JOXIZPSI OXYGEN THERAPY PROTOCOLSTEPSKYLAR OTOOLEECKStart: 85-75-2895OWCCM CANNULA OXYGENSTEPSKYLAR OTOOLEECKStart: 12-91-4684Yrbxwcn blood reagent stripSTEPSKYLAR REINECKStart: 62-52-6855BHVZAVVHBEMQNOW REINECKStart: 11-58-1082WOOTCFCJO SPIROMETRY RTSTEPSKYLAR REINECKStart: 80-91-3916Ppjgc of magnesiumSTEPHEN REINECKStart: 23-63-2393Mfhmc of phosphorus inorganicSTEPHEN REINECKStart: 08-95-5237Mcdcn metabolic panel calcium totalSTEPSKYLAR OTOOLEECKStart: 53-48-6969Sqafi count complete auto&auto difrntl wbcSTEPSKYLAR REINECKStart: 62-26-0940Vanekzt ionizedSTEPSKYLAR REINECKStart: 51-91-0731Nmfksbwlwgg timeSTEPHEN REINECKStart: 44-97-0631Iaybiqinuyawki time partial plasma/whole bloodSTEPHEN REINECKStart: 69-87-0102Oetf bld gluc mntr dev cleared fda spec home useSTEPHEN REINECKStart: 61-62-8616YFGMCO AND OUTPUT BHARAT REINECKStart: 67-50-3333Xkcw bld gluc mntr dev cleared fda spec home use BHARAT REINECKStart: 37-29-2353ZSDDITADWCBZCLH REINECKStart: 08-24-2019 INCENTIVE SPIROMETRY RTSTEPHEN REINECKStart: 27-41-3513Npuczfj blood reagent stripSTEPHEN REINECKStart: 33-87-0617FZCRPJKFLVBVLTQ REINECKStart: 08-23-2019 INCENTIVE SPIROMETRY RTSTEPHEN REINECKStart: 30-86-7566Lddy bld gluc mntr dev cleared fda spec home useSTEPHEN REINECKStart: 21-79-7510Dtdukeg fngi mold/yeast prsmptv oth xcpt bloodSTEPHEN REINECKStart: 16-47-9237Farhbnea fl nongyn, sm/fltrSTEPHEN REINECKStart: 10-65-8202Quzkhjg tubercle/oth acid-fast bacilli any isolSTEPHEN REINECKStart: 18-47-6975Ksp bact xcpt urine blood/stool aerobic isolSTEPHEN REINECKStart: 66-86-7614Uth prim src gram/giemsa stain bct fungi/cellSTEPHEN REINECKStart: 90-61-9415Ycvp count misc body fluids w/differential countSTEPHEN REINECKStart: 10-22-4957Ukjcgcj body fluid other than bloodSTEPHEN REINECKStart: 35-48-9229Fwguhdf dehydrogenase ldhSTEPHEN REINECKStart: 27-47-2120Yw body fluid not elsewhere specifiedSTEPHEN REINECK Start: 65-81-9295Vncslrn total xcpt refractometry oth srcSTEPHEN REINECKStart: 05-41-0206LDUHETMZCLJGVLA REINECKStart: 81-17-4266STLOSYROA SPIROMETRY RTSTEPHEN REINECKStart: 64-91-5098Qcpxpzc blood reagent stripSTEPHEN REINECKStart: 18-65-3279UMUBMTTJQSJETHZ REINECKStart: 69-15-0629EFJCBHSEH SPIROMETRY RTSTEPHEN REINECKStart: 76-38-9002ZUVRUQU NUTRITION SUPPLEMENTSSTEPSKYLAR REINECKStart: 54-40-5024Fmzvghhuhdt antibodies anaSTJAYNA OTOOLEECKStart: 61-67-9743WGQVFETU BHARAT OTOOLEECKStart: 53-94-1959LIQYSLDRH SPIROMETRY RTSDOMONIQUE OTOOLEECKStart: 82-65-0737Vzaatnillavot needle/cath pleura w/imagingSTEPSKYLAR REINECKStart: 43-16-4072CWZKXRBUKYHNXRO REINECKStart: 84-22-1622KZABTRXNZ SPIROMETRY RTSTEPSKYLAR REINECKStart: 82-94-4122Cjfcuaostat antibodies anaSTEPSKYLAR REINECKStart: 97-56-8108G-reactive proteinSTEPSKYLAR REINECKStart: 77-00-6071Wjbcui citrullinated peptide antibodySTEPSKYLAR REINECKStart: 09-91-9885Kzldkwa function panelSTEPSKYLRA OTOOLEECKStart: 78-17-0471Rspnoer dehydrogenase ldhSTEPSKYLAR OTOOLEECKStart: 91-06-4043Hzjwczb blood reagent stripSTEPSKYLAR OTOOLEECKStart: 22-38-3420XFVVXCBI BHARAT REINECKStart: 57-41-8722WUTLASDYT SPIROMETRY RTSTEPSKYLAR REINECKStart: 43-02-3864Htmibcprln exam chest 2 viewsSTEPSKYLAR REINECKStart: 40-55-6962Hvnk bld gluc mntr dev cleared fda spec home useSDOMONIQUE OTOOLEECKStart: 37-70-9812OBNQVUDF BHARAT OTOOLEECKStart: 37-88-2815FKTOQAZGG SPIROMETRY RTSDOMONIQUE OTOOLEECKStart: 40-71-3762IGJOR CANNULA OXYGENSTEPSKYLAR OTOOLEECKStart: 17-21-9526DNJHZMHX OXYGEN THERAPY PROTOCOLSTEPSKYLAR REINECKStart: 88-99-6224Vxqpume blood reagent strip BHARAT REINECKStart: 78-38-2844WWZGXWJPBCLNHQL REINECKStart: 08-23-2019 INCENTIVE SPIROMETRY RTSTEPSKYLAR REINECKStart: 48-82-3122Ryuv bld gluc mntr dev cleared fda spec home useSDOMONIQUE OTOOLEECKStart: 19-49-6722Fzuuj of magnesium BHARAT REINECKStart: 10-51-1089Hfgvi of phosphorus inorganicSTJAYNA OTOOLEECK Start: 43-21-5606Zcfka metabolic panel calcium totalSTEPHEN REINECKStart: 01-33-6008Xpvjw count complete auto&auto difrntl wbcSTEPHEN REINECKStart: 87-90-1913Puynztg ionizedSTEPHEN REINECKStart: 84-38-7448Rffqrjuphfw timeSTEPHEN REINECKStart: 96-68-2294Bqextqdgeiumpm time partial plasma/whole bloodSTEPHEN REINECKStart: 87-48-4938DANDDN AND OUTPUTSTEPHEN REINECKStart: 22-03-4242Yyid bld gluc mntr dev cleared fda spec home useSTEPHEN REINECKStart: 08-23-2019 ACAPELLASTEPHEN REINECKStart: 36-45-7016BBKRVSQUD SPIROMETRY RTSTEPHEN REINECK Start: 37-20-6933Xrygzyk blood reagent stripSTEPHEN REINECKStart: 08-22-2019 ACAPELLASTEPHEN REINECKStart: 60-70-8494OYLYNOESM SPIROMETRY RTSTEPHEN REINECK Start: 54-06-9732Dihu bld gluc mntr dev cleared fda spec home useSTEPHEN REINECK Start: 39-43-7954GWNPGGKDIYBXJBU REINECKStart: 90-75-8277YTOEOUUUK SPIROMETRY RT BHARAT REINECKStart: 19-62-4762Noqmw of magnesiumSTEPHEN REINECKStart: 31-93-4520Llpdsbvgh serum plasma/whole bloodSTEPHEN REINECKStart: 08-22-2019 ACAPELLASTEPHEN REINECKStart: 69-38-4198MSJTIINWH SPIROMETRY RTSTEPHEN REINECK Start: 85-46-1130Wwggicy blood reagent stripSTEPHEN REINECKStart: 08-22-2019 NASAL CANNULA OXYGENSTEPHEN REINECKStart: 97-33-8193IUZPYVMGBUBQSDH REINECK Start: 32-48-8887AFXHETFOK SPIROMETRY RTSTEPHEN REINECKStart: 35-04-7828UMHIFOMA BHARAT REINECKStart: 77-41-3282GGDIRTISL SPIROMETRY RTSTEPHEN REINECKStart: 51-01-2408Xuvloak blood reagent stripSTEPHEN REINECKStart: 46-16-8182VYELTIDI BHARAT REINECKStart: 84-35-6328VRHZZGSZD SPIROMETRY RTSTEPHEN REINECKStart: 62-84-8978Srgy bld gluc mntr dev cleared fda spec home useSTEPHEN REINECKStart: 28-61-5504LEBJHPORRRPINYD REINECKStart: 79-86-8699ZFKZBYLYR SPIROMETRY RTSTEPSKYLAR REINECKStart: 31-12-4381CJRAUOYZ OXYGEN THERAPY PROTOCOLSTEPSKYLAR REINECKStart: 11-09-4113Eekfwxa blood reagent stripSTEPSKYLAR REINECKStart: 02-46-3985Thirn of magnesiumSTEPHEN REINECKStart: 80-04-6526Mlihz of phosphorus inorganicSTEPSKYLAR REINECKStart: 73-88-5995Cdchp count complete auto&auto difrntl wbcSTEPSKYLAR REINECKStart: 59-76-1866Okjoaxu ionizedSTEPHEN REINECKStart: 08-22-2019 Comprehensive metabolic panelSTEPSKYLAR REINECKStart: 78-27-7686Vtiffnoyuba time BHARAT REINECKStart: 83-42-5519Arajexyghzshky time partial plasma/whole blood BHARATSKYLAR OTOOLEECKStart: 85-14-1557AWRQAXPISSKETZP SYDNIEECKStart: 08-22-2019 INCENTIVE SPIROMETRY RTSTEPSKYLAR REINECKStart: 25-17-7360Hcka bld gluc mntr dev cleared fda spec home useSTEPSKYLAR REINECKStart: 06-44-3480WXEQP WEIGHTSSTEPSKYLAR REINECKStart: 78-76-2317ZBDDYS AND OUTPUTSTEPHEN REINECKStart: 84-18-9507Kpml bld gluc mntr dev cleared fda spec home useSDOMONIQUE OTOOLEECKStart: 08-22-2019 ACAPELLASTEPHEN SYDNIEECKStart: 82-17-1150VTUEDILXW SPIROMETRY RTSDOMONIQUE REINECK Start: 58-58-6473Vvvksns blood reagent stripSTEPSKYLAR REINECKStart: 08-21-2019 ACAPELLASTEPHEN REINECKStart: 60-54-1500PUUTKNXTM SPIROMETRY RTSTEPHEN REINECK Start: 72-76-3395Hwbx bld gluc mntr dev cleared fda spec home useSTEPHEN REINECK Start: 75-64-6908KEPAGAWZSUMRZMH REINECKStart: 77-86-0061UDYQJEWSL SPIROMETRY RT BHARAT REINECKStart: 83-79-4012Mitwvpcxdd exam chest single viewSTEPHEN REINECK Start: 24-32-5899Gdrswja blood reagent stripSTEPSKYLAR REINECKStart: 08-21-2019 ACAPELLASTEPHEN REINECKStart: 31-79-0034XRRFKVXQI SPIROMETRY RTSTEPHEN REINECK Start: 02-65-1850XYPVLGDEJKYZHFY REINECKStart: 26-12-5506GMBTZKKXR SPIROMETRY RT BHARAT OTOOLEECKStart: 81-85-2590Nrhje iv surg pathology gross&microscopic exam BHARATSKYLAR OTOOLEECKStart: 65-58-3045AGNERIFLBDRZLAT REINECKStart: 08-21-2019 INCENTIVE SPIROMETRY RTSTEPSKYLAR REINECKStart: 25-22-4958CYPC CARDIACSTEPSKYLAR REINECKStart: 55-29-1869Gcdohof blood reagent stripSTEPHEN ECKStart: 52-96-6991Ncw prsmptv pthgnc organism scrn w/[place] estimjSTEPHEN REINECKStart: 43-83-3493Sbxfjjv fngi mold/yeast prsmptv oth xcpt bloodSTEPHEN REINECKStart: 82-06-6268Hqwjcyv tubercle/oth acid-fast bacilli any isolSTEPHEN REINECKStart: 19-68-7769Nakxkszd fl nongyn, sm/fltrSTEPHEN REINECKStart: 88-49-9937PW EVAL AND TREATSTEPHEN REINECKStart: 97-95-3665ZJELL INTERMITTENT PNEUMATIC COMPRESSION DEVICESTEPHEN REINECKStart: 10-72-7126WH EVAL AND TREATSTEPHEN REINECKStart: 22-87-5926HJDEKMQUKCXFSFS REINECKStart: 26-83-0177MGDAEVZ DIET TOLERATED (NURSING COMMUNICATION)BHARAT OTOOLEart: 11-04-0447CPCYXOOA PATIENTSTEPSKYLAR REINECKStart: 26-27-9614HAJGU TUBE TO CONTINUOUS SUCTIONSTEPHEN REINECKStart: 38-07-4346IVGAYDL HOBSTEPHEN REINECKStart: 99-94-7615TREGWKLCF DEEP BREATHING AND COUGHINGSTEPSKYLAR REINECKStart: 53-51-4287SDBD CODESTEPSKYLAR REINECKStart: 63-70-8172EFVPNDYHT SPIROMETRY RTSTEPSKYLAR REINECKStart: 30-81-7751TTSKCE AND OUTPUTSTEPHEN REINECKStart: 36-04-6274DLVUWU PHYSICIAN (SPECIFY)BHARAT ARMANDO Start: 43-47-8861ZVRNALN COMMUNICATIONSTEPSKYLAR REINECKStart: 94-22-1839JUML SITE CARESTEPSKYLAR REINECKStart: 19-78-4974LIHEV SIGNSSTEPHEN ECKStart: 08-21-2019 WOUND CARESTEPHEN REINECKStart: 50-74-7890Ezft bld gluc mntr dev cleared fda spec home useSTEPSKYLAR REINECKStart: 10-41-2358Zyz prsmptv pthgnc organism scrn w/[place] estimjSTEPSKYLAR REINECKStart: 02-31-3909Paq bact xcpt urine blood/stool aerobic isolSTEPSKYLAR REINECKStart: 30-70-7180Mbeusgq fngi mold/yeast prsmptv oth xcpt bloodSTEPSKYLAR REINECKStart: 24-63-0148Skgqr iv surg pathology gross&microscopic examSTEPHEN REINECKStart: 98-81-8380CWIPMUME OXYGEN THERAPY PROTOCOLSTEPSKYLAR REINECKStart: 48-55-3343GVQHECP RBC (CROSSMATCH)BHARATSKYLAR OTOOLEECK Start: 47-99-5382Xklqdhshtxo blood/blood componentsSTEPSKYLAR REINECKStart: 76-29-3122Tvzmm of magnesiumSTEPHEN REINECKStart: 79-07-1562Jsqxp of phosphorus inorganicSTEPSKYLAR REINECKStart: 92-93-2223Dlaen metabolic panel calcium total BHARAT REINECKStart: 57-53-4342Szmwg count complete auto&auto difrntl wbc BHARAT REINECKStart: 21-57-0661Mjzvnrg ionizedSTEPHEN REINECKStart: 08-21-2019 Prothrombin timeSTEPSKYLAR REINECKStart: 78-57-9856Ykbcglfiebwkro time partial plasma/whole bloodSTEPHEN REINECKStart: 88-41-3219Xnfd bld gluc mntr dev cleared [facility] spec home useSTEPSKYLAR REINECKStart: 72-49-1710YQLGYB AND OUTPUTSTEPHEN REINECKStart: 99-73-7087Cbry bld gluc mntr dev cleared fda spec home useSTEPHEN REINECKStart: 22-76-3879Gdxmaag blood reagent stripSTEPSKYLAR REINECKStart: 14-34-8198Ilvc bld gluc mntr dev cleared fda spec home useSTEPSKYLAR REINECKStart: 23-37-4394Igcqimc blood reagent stripSTEPHEN REINECKStart: 66-88-1093Oebxxal blood reagent stripSTEPHEN REINECKStart: 09-03-8731Gfoqo bld/component collj storage predepositedSTEPHEN REINECKStart: 08-98-5983YMRS AND SCREENSTEPHEN REINECKStart: 66-55-5101Kutl bld gluc mntr dev cleared fda spec home useSTEPHEN REINECKStart: 32-55-8877IWTQIEYZ OXYGEN THERAPY PROTOCOLSTEPHEN REINECKStart: 89-69-6901Dsqflyq blood reagent stripSTEPHEN REINECKStart: 56-59-2833Yakhp of magnesiumSTEPHEN REINECKStart: 43-50-8692Vjfhm of phosphorus inorganicSTEPHEN REINECKStart: 62-36-6658Atufk metabolic panel calcium totalSTEPHEN REINECKStart: 22-61-0454Jmqhc count complete auto&auto difrntl wbcSTEPHEN REINECKStart: 71-01-4899Oylotxb ionizedSTEPHEN REINECKStart: 88-77-6060Luvwbkfxost timeSTEPHEN REINECKStart: 22-39-0857Hstnusjzfxwlbg time partial plasma/whole bloodSTEPHEN REINECKStart: 12-16-5948Ajhy bld gluc mntr dev cleared fda spec home useSTEPSKYLAR OTOOLEECKStart: 88-24-6620DGVOEY AND OUTPUTSTEPHEN REINECKStart: 94-69-4800Hvmq bld gluc mntr dev cleared fda spec home useSTEPSKYLAR OTOOLEECKStart: 08-19-2019 Glucose blood reagent stripSTEPSKYLAR REINECKStart: 15-20-5228Wixw bld gluc mntr dev cleared fda spec home useSTEPHEN SYDNIEECKStart: 31-66-1019Sspiugit enterovirusSTEPHEN REINECKStart: 20-21-1013Xhmpoly blood reagent stripSTEPSKYLAR REINECKStart: 96-02-5130JM CONSULT TO CARDIOTHORACIC SURGERYSTJAYNA REINECK Start: 10-24-7115Bhcqoaz blood reagent stripSTEPSKYLAR REINECKStart: 47-13-3242Sgib transthorc r-t 2d w/wo m-mode rec f-up/lmtdSTEPHEN REINECKStart: 07-76-1851Hnnl bld gluc mntr dev cleared fda spec home useSTEPHEN SYDNIEECKStart: 08-19-2019 INITIATE OXYGEN THERAPY PROTOCOLSTEPHEN REINECKStart: 81-09-5213Qcrng of magnesiumSTEPHEN REINECKStart: 77-18-0258Nfhhr of phosphorus inorganicSTEPHEN REINECKStart: 66-05-1669Aefjf metabolic panel calcium totalSTEPHEN REINECKStart: 04-20-5236Fulow count complete auto&auto difrntl wbcSTEPSKYLAR REINECKStart: 03-80-1130Zrvraxt ionizedSTEPHEN REINECKStart: 99-54-7242Mxpyqrxwwl glycosylated s9tTHCNNXQ REINECKStart: 72-41-8686Grwrzploybf timeSTEPSKYLAR REINECKStart: 20-43-0633Kejfgkerpkbpft time partial plasma/whole bloodSTEPHEN REINECKStart: 05-48-8286Kqvawfk blood reagent stripSTEPSKYLAR REINECKStart: 34-22-7006Znml bld gluc mntr dev cleared fda spec home useSTEPSKYLAR REINECKStart: 72-55-2024MUITHT AND OUTPUTSTEPHEN REINECKStart: 00-73-5192Ssbn bld gluc mntr dev cleared fda spec home useSTEPHEN REINECKStart: 54-40-6648Ztib bld gluc mntr dev cleared fda spec home useSTEPSKYLAR OTOOLEECKStart: 24-61-9740Fkxvlvu blood reagent stripSTEPSKYLAR REINECKStart: 81-53-2867Nkzitpv blood reagent stripSTEPSKYLAR OTOOLEECKStart: 13-73-7759Bxrb bld gluc mntr dev cleared fda spec home useSTEPSKYLAR REINECKStart: 05-22-1698Ifstt of magnesiumSTEPHEN REINECKStart: 51-94-9528Iakce of phosphorus inorganicSTEPHEN REINECKStart: 48-25-3388Qidsu metabolic panel calcium total BHARAT REINECKStart: 35-82-0445Qmavy count complete auto&auto difrntl wbc BHARAT REINECKStart: 36-90-1986Tfrkiud ionizedSTEPHEN REINECKStart: 08-18-2019 Prothrombin timeSTEPSKYLAR REINECKStart: 44-28-0525Mjamtlkjkomfmy time partial plasma/whole bloodSTEPHEN REINECKStart: 51-39-8870XJGHMKHC OXYGEN THERAPY PROTOCOLSTEPHEN REINECKStart: 89-70-5726Mucugcz blood reagent stripSTEPHEN REINECKStart: 92-59-9113Uvqk bld gluc mntr dev cleared fda spec home useSTEPHEN SYDNIEECKStart: 30-96-7769GBBNAZ AND OUTPUTSTEPHEN REINECKStart: 41-47-6382Heph bld gluc mntr dev cleared fda spec home useSTEPHEN SYDNIEECKStart: 08-17-2019 Glucose blood reagent stripSTEPSKYLAR REINECKStart: 23-95-4087Thlu bld gluc mntr dev cleared fda spec home useSTEPHEN REINECKStart: 95-02-3626Pasmjqj blood reagent stripSTEPHEN REINECKStart: 13-26-4473Ebvxebg blood reagent stripSTEPHEN REINECKStart: 95-63-3812Khvcpidmjj exam chest 2 viewsSTEPHEN REINECKStart: 61-23-9365Mwbd bld gluc mntr dev cleared fda spec home useSTEPHEN REINECKStart: 91-34-9148JYUPLYMR OXYGEN THERAPY PROTOCOLSTEPHEN REINECKStart: 08-17-2019 Glucose blood reagent stripSTEPHEN REINECKStart: 41-05-2820Uxfoi of magnesium BHARAT REINECKStart: 25-09-0262Nsvdm of phosphorus inorganicSTEPHEN REINECK Start: 87-91-8921Mwqpn metabolic panel calcium totalSTEPHEN REINECKStart: 48-35-2457Zjhkc count complete auto&auto difrntl wbcSTEPHEN REINECKStart: 36-90-0810Mwusknh ionizedSTEPHEN REINECKStart: 61-40-1288Boooqnibnrj timeSTEPHEN REINECKStart: 69-20-1145Dywbletpvukcio time partial plasma/whole bloodSTEPHEN REINECKStart: 27-56-3423Gxkd bld gluc mntr dev cleared fda spec home useSTEPHEN REINECKStart: 42-23-8046XJBHVN AND OUTPUTSTEPHEN REINECKStart: 74-50-9367Hwog bld gluc mntr dev cleared fda spec home useSTEPHEN REINECKStart: 08-16-2019 Glucose blood reagent stripSTEPHEN REINECKStart: 25-94-8085Jzec bld gluc mntr dev cleared fda spec home useSTEPHEN REINECKStart: 05-95-3956Bqoovoq fngi mold/yeast prsmptv oth xcpt bloodSTEPHEN REINECKStart: 05-35-3229Wlohsuz tubercle/oth acid-fast bacilli any isolSTEPHEN REINECKStart: 10-95-7850Jgcxfno blood reagent stripSTEPHEN REINECKStart: 50-31-1644Gdmnyag ionizedSTEPHEN REINECKStart: 07-38-3211NEKURHLE SPECIMENSTEPHEN REINECKStart: 08-16-2019 Prothrombin timeSTEPHEN REINECKStart: 73-37-2306Rzerurfbfltxpw time partial plasma/whole bloodSTEPHEN REINECKStart: 61-89-7147Hiowxlj blood reagent strip BHARAT OTOOLEECKStart: 84-51-3191Juwi bld gluc mntr dev cleared fda spec home use BHARAT OTOOLEECKStart: 68-97-6797PNMSCM INFORMED CONSENTSTEPSKYLAR OTOOLEECKStart: 06-49-1392OKKNHSDJ OXYGEN THERAPY PROTOCOLSTEPSKYLAR OTOOLEECKStart: 22-50-8144Dbntx of magnesiumSTEPHEN REINECKStart: 50-73-7491Tbtwj of phosphorus inorganicSTEPSKYLAR REINECKStart: 14-38-3267Qyxib metabolic panel calcium totalSTEPSKYLAR REINECK Start: 34-97-7976Uxzej count complete auto&auto difrntl wbcSTEPSKYLAR REINECKStart: 82-89-9831Aeri tst prsmv instrmnt chem analyzers pr dateSTEPSKYLAR OTOOLEECKStart: 07-96-1194Tgcovgm blood reagent stripSDOMONIQUE OTOOLEECKStart: 56-14-2662Mly prsmptv pthgnc organism scrn w/colony estimjSDOMONIQUE OTOOLEECKStart: 08-17-5367Vcwk bld gluc mntr dev cleared fda spec home useSDOMONIQUE OTOOLEECKStart: 76-41-8954BTLIUA AND OUTPUTSTEPSKYLAR OTOOLEECKStart: 22-31-9711Ugcf bld gluc mntr dev cleared fda spec home useSDOMONIQUE OTOOLEECKStart: 21-79-4942Tpkmlbj blood reagent stripSDOMONIQUE OTOOLEECKStart: 15-07-1781Ooqx bld gluc mntr dev cleared fda spec home useSDOMONIQUE OTOOLEECKStart: 09-26-6505Tlpzdgm blood reagent stripSDOMONIQUE OTOOLEECKStart: 08-15-2019R & l hrt cath w/njx l ventriculog img s&iSTEPSKYLAR OTOOLEECKStart: 43-29-4999Rwyi transthorc r-t 2d w/wo m-mode rec f-up/lmtdSDOMONIQUE OTOOLEECKStart: 18-02-4511Neojpda blood reagent stripSTEPSKYLAR OTOOLEECKStart: 46-53-7310Ngsi bld gluc mntr dev cleared fda spec home useSTEPSKYLAR OTOOLEECKStart: 22-06-7225ZZMJVJNK OXYGEN THERAPY PROTOCOLSTEPSKYLAR OTOOLEECKStart: 42-21-7057Blhid of magnesiumSTEPSKYLAR REINECKStart: 40-80-7034Hhyxb of phosphorus inorganicSTEPHEN REINECKStart: 93-41-8911Bhinm metabolic panel calcium totalSTEPHEN REINECKStart: 08-15-2019 Blood count complete auto&auto difrntl wbcSTEPHEN REINECKStart: 39-24-2727S- reactive proteinSTEPHEN REINECKStart: 63-10-4655Gssctyx ionizedSTEPHEN REINECK Start: 74-77-6860Vpdbcidgpou timeSTEPHEN REINECKStart: 20-39-4100Vgowaxzabrgszm time partial plasma/whole bloodSTEPHEN REINECKStart: 58-35-5106Qbdq bld gluc mntr dev cleared fda spec home useSTEPHEN REINECKStart: 29-03-7684YXBYAN AND OUTPUTSTEPHEN REINECKStart: 18-53-5938Aoeo bld gluc mntr dev cleared fda spec home useSTEPHEN REINECKStart: 55-70-7641Cjjuwhi blood reagent stripSTEPHEN REINECKStart: 53-18-0486Zpqy bld gluc mntr dev cleared fda spec home useSTEPHEN REINECKStart: 85-69-7104Lhucxstu enterovirusSTEPHEN REINECKStart: 08-14-2019 INFECTIOUS DISEASE INTERVENTIONSTEPHEN REINECKStart: 50-60-9630Zdifidi blood reagent stripSTEPHEN REINECKStart: 68-90-4738TBSSCBNH INTERMITTENT PNEUMATIC COMPRESSION DEVICESTEPHEN REINECKStart: 18-25-4825Nmsi transthorc r-t 2d w/wo m- mode rec f-up/lmtdSTEPHEN REINECKStart: 68-07-5025Qialnag blood reagent strip BHARAT REINECKStart: 23-87-1296Baxnklkx mycoplsmSTEPHEN REINECKStart: 94-19-0805DSWINEVT RT PROTOCOLSTEPHEN REINECKStart: 57-07-0803Fkby bld gluc mntr dev cleared fda spec home useSTEPHEN REINECKStart: 00-52-4909QN CONSULT TO INFECTIOUS DISEASESSTEPHEN REINECKStart: 61-56-1012QUPRZILA OXYGEN THERAPY PROTOCOLSTEPHEN REINECKStart: 12-46-9567Tizoqwf blood reagent stripSTEPHEN REINECKStart: 56-73-6956Iobsh of magnesiumSTEPHEN REINECKStart: 13-13-1651Kthus of phosphorus inorganicSTEPHEN REINECKStart: 27-97-3831Uumhx metabolic panel calcium totalSTEPHEN REINECKStart: 11-14-0556Nwklf count complete auto&auto difrntl wbcSTEPHEN REINECKStart: 02-40-3043Qunehnf ionizedSTEPHEN REINECKStart: 17-57-6938Hdgkmbwvchm timeSTEPHEN REINECKStart: 48-18-4854Fqehxbguhmlvsj time partial plasma/whole bloodSTEPHEN REINECKStart: 26-99-1090Lato bld gluc mntr dev cleared fda spec home useSTEPHEN REINECKStart: 61-49-0124VHHDSK AND OUTPUT BHARAT REINECKStart: 25-80-0515Qxuf bld gluc mntr dev cleared fda spec home use BHARAT REINECKStart: 66-14-2757Lbtvmcd blood reagent stripSTEPHEN REINECKStart: 08-97-0954ME CONSULT TO HOSPITALISTSTEPSKYLAR REINECKStart: 83-37-9809Nnsc bld gluc mntr dev cleared fda spec home useSTEPHEN REINECKStart: 02-36-8527Velukqz blood reagent stripSTEPHEN REINECKStart: 16-90-8070NPPYDWRW PATIENTSTEPHEN REINECKStart: 51-54-6338Qygklbe blood reagent stripSTEPHEN REINECKStart: 05-70-3285Awvj bld gluc mntr dev cleared fda spec home useSTEPHEN REINECKStart: 77-45-6026CSSMPSAT OXYGEN THERAPY PROTOCOLSTEPHEN REINECKStart: 08-13-2019 Glucose blood reagent stripSTEPHEN REINECKStart: 25-71-1952Twmhcogofe exam chest single viewSTEPHEN REINECKStart: 60-73-0268Tigke of magnesiumSTEPHEN REINECK Start: 49-73-2284Tquho of phosphorus inorganicSTEPHEN REINECKStart: 08-13-2019 Assay of thyroid stimulating hormone tshSTEPHEN REINECKStart: 12-74-3289Mbvgz metabolic panel calcium totalSTEPHEN REINECKStart: 75-19-0484Byfdn count complete auto&auto difrntl wbcSTEPHEN REINECKStart: 83-93-3499Otugply ionized BHARAT REINECKStart: 55-14-7909Zlfnwpzltht timeSTEPHEN REINECKStart: 08-13-2019 Thromboplastin time partial plasma/whole bloodSTEPHEN REINECKStart: 08-13-2019 Gluc bld gluc mntr dev cleared fda spec home useSTEPHEN REINECKStart: 08-13-2019 Iaadiadoo influenzaSTEPHEN REINECKStart: 66-49-9194Ezzhirh blood reagent strip BHARAT REINECKStart: 09-46-0566XJQNC WEIGHTSSTEPHEN REINECKStart: 08-13-2019 INTAKE AND OUTPUTSTEPHEN REINECKStart: 21-10-0303Qhdz bld gluc mntr dev cleared fda spec home useSTEPHEN REINECKStart: 96-87-6125Dirpn of troponin quantitative BHARAT REINECKStart: 88-55-1891Rjmsb metabolic panel calcium totalSTEPHEN REINECKStart: 47-28-7088Ymvzo count complete auto&auto difrntl wbcSTEPHEN REINECKStart: 26-81-5100W-reactive proteinSTEPHEN REINECKStart: 08-13-2019 Sedimentation rate rbc automatedSTEPHEN REINECKStart: 78-01-1890Gfisrwyv mycoplsmSTEPHEN REINECKStart: 00-59-3795Qbiap s aureus methicillin resist amp probe tqSTEPHEN REINECKStart: 63-58-4676Qsp routine ecg w/least 12 lds w/i&r BHARAT REINECKStart: 37-23-1267ANQ REPORTSTEPHEN REINECKStart: 49-21-5479UO CONSULT TO CARDIOLOGYSTEPHEN REINECKStart: 45-98-6347TFNOJR FOR NO CHEMICAL VTE PROPHYLAXISSTEPHEN REINECKStart: 52-98-7644UBHWFWQFSNHXOW REINECKStart: 80-43-8816YQWQFFQF OXYGEN THERAPY PROTOCOLSTEPHEN REINECKStart: 09-14-0867GZZVHI AND OUTPUTSTEPHEN REINECKStart: 94-57-7949NIPNIP PHYSICIAN (SPECIFY)BHARAT REINECKStart: 46-67-0284AAFDB INTERMITTENT PNEUMATIC COMPRESSION DEVICESTEPHEN REINECKStart: 17-43-5750HOVIVAIXPXW CARE EVALUATION ONLYSTEPHEN REINECKStart: 15-58-7115QZPDAKNNQ MONITORINGSTEPHEN REINECKStart: 25-28-3120QTROL SIGNSSTEPHEN REINECKStart: 83-97-0604FPQEBKC STATUS (DIRECT)BHARAT ARMANDO Plan of Treatment DateCare ActivityDetailAuthorStart: 38-80-5715Mxlnbdkzo for malignant neoplasm of colonNOMS HealthcareStart: 26-21-9441Nywlwnlht for malignant neoplasm of breastMammogramJORDAN VALLEY MED[facility] HealthcareStart: 11-27-2025 End: 33-01-4231Xnqimqc encounter uazyibuxu79/12/2026 9:45 AM EST [facility] [address] [place] [address] Halle Figueroa, DO [address] [place] [address] [facility] 230 Start: 42-90-6467Ydmrxtoaen A1c measurementDiabetes: Hemoglobin D2WUVBO HealthcareStart: 39-94-7959Miqjydge screeningDiabetes: Retinopathy ScreeningNONE HealthcareStart: 05-29-2025 End: 75-88-7778Asyeeei encounter qqzstehhp85/14/2025 9:45 AM EDT Office Visit [facility] [address] [place] [address] Halle Figueroa, DO [address] [place] [address] [facility] 230 Start: 05-21-2025 End: 81-92-9164LV Ankle - right 3 ViewsXR ankle 3+ views right Imaging Routine Acute right ankle pain Expected: 05/21/2025, Expires: 05/21/2026[facility] Comment on above:Expected: 05/21/2025, Expires: 05/21/2026Start: 05-21-2025 End: 52-58-6351AC Foot - right 3 ViewsXR foot 3+ views right Imaging Routine Right foot pain Expected: 05/21/2025, Expires: 05/21/2026[facility] Work Phone: Comment on above:Expected: 05/21/2025, Expires: 05/21/2026Start: 05-15-2025 End: 64-29-7597Zgvtikx encounter dmkxbacxq87/31/2025 10:30 AM EDT Office Visit [facility] [address] [place] [address] Halle Figueroa, DO [address] [place] [address] [facility] 230Start: 07-24-2025Medicare Annual Wellness (AWV)Medicare Annual Wellness (AWV)[facility] HealthcareStart: 05-01-2025 End: 18-09-6665Awcbjqd encounter hxsuumuec81/17/2025 10:30 AM EDT Office Visit [facility] [address] [place] [phone] PetHalle allred, DO [address] [place] [address] [facility] 230Start: 04-24-2025 End: 23-40-2150Beevgac encounter labsgljvb08/10/2025 10:00 AM EDT Office Visit [facility] [address] [place] [address] Monika Castillo, BOILER ERECTOR [address] [place] [address] [facility] FMStart: 04-12-2025 End: 81-29-0494ZY Breast - bilateral ScreeningBilateral screening mammogram Imaging Routine Encounter for screening mammogram for malignant neoplasm of breast Expected: 04/12/2025 (Approximate), Ex[facility]: [facility]/2026[facility]: Comment on above:Expected: 04/12/2025 (Approximate), Expires: 05/12/2026Start: 01-84-1358Eiyzo screening for proteinDiabetes: Urine Protein ScreeningNONE HealthcareStart: 76-07-3366Agemexpqa for malignant neoplasm of breastMammogramJORDAN VALLEY MEDICAL [facility]ENTER HealthcareStart: 85-16-8034Vzstuwluox A1c measurementDiabetes: Hemoglobin W1OUINCSalem Memorial District HospitalStart: 03-12-2025 End: 62-13-713725245439-dtphcctpfwdlyb D3 [Mass/volume] in Serum or PlasmaVitamin D 25 hydroxy Lab Routine Vitamin D deficiency Expected: 03/12/2025 (Approximate), Expires: 03/12/2026NOMS HealthcareComment on above:Expected: 03/12/2025 (Approximate), Expires: 03/12/2026Start: 02-05-2025 End: 84-98-6597Msgrpah encounter sbwdsdfha99/23/2025 2:20 PM EDT Office Visit [facility] [address] [place] [address] Monika Castillo, BOILER E[employer]OR [address] [place] [address] [facility] FMStart: 01-22-2025 End: 42-88-2261Svwsooj encounter vqomfthse82/09/2025 1:00 PM EDT Office Visit [facility] [address] [place] [address] Monika Castillo, BOILER E[employer]OR [address] [place] [address] [facility] FMStart: 12-19-2024 End: 00-87-1384Putskwq encounter mnbnkayvm91/06/2025 11:15 AM EST Office Visit [facility] [address] [place] [address] Halle Figueroa, [address] [place] [address] [facility] FM 230Start: 12-11-2024 End: 73-67-1046Nxutvhr encounter jwojvscyh02/26/2025 2:45 PM EST Office Visit [facility] [address] [place] [address] Mary Kay Womack, BOILER ERECTOR [address] [place] [address] [facility] ORTHOStart: 99-97-7825Bzzfnnrglz A1c measurement Diabetes: Hemoglobin P0AZPZXSalem Memorial District HospitalStart: 11-20-2024 End: 10-75-3082Rlgcjgs encounter procedureNOKERN [facility] ORTHOComment on above:Left shoulder pain, unspecified chronicityStart: 11-08-2024 End: 907001-ssfchwpxyhpbok D3 [Mass/volume] in Serum or PlasmaVitamin D 25 hydroxy Lab Routine Hypocalcemia Expected: 11/08/2024 (Approximate), Expires: 11/08/2025[facility] Work Phone: Comment on above:Expected: 11/08/2024 (Approximate), Expires: 11/08/2025Start: 10-24-2024 End: 62-46-6903Bafryjw encounter ixxcldyje07/09/2025 2:40 PM EST Office Visit [facility] [address] [place] [address] Monika Castillo NP [address] [place] [address] Primary hypertension (CMS/HCC) (Primary Dx); 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/HCC); long-term (current) use of insulin (CMS/HCC); Other specified diabetes mellitus without complications (CMS/HCC); 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); Anxiety and depression (CMS/HCC)[facility] FMComment on above:Primary hypertension (CMS/HCC) (Primary Dx); 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/HCC); long-term (current) use of insulin (CMS/HCC); Other specified diabetes mellitus without complications (CMS/HCC); 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); Anxiety and depression (CMS/HCC)Start: 10-24-2024 End: 80-93-4134Xjoqr metabolic 1998 panel - Serum or PlasmaBasic metabolic panel Lab Routine 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 /HCC) Expected: 10/24/2024 (Approximate), Expires: 10/24/2025[facility] Comment on above:Expected: 10/24/2024 (Approximate), Expires: 10/24/2025Start: 10-24-2024 End: 77-10-8724SAS W Auto Differential panel - BloodCBC and differential Lab Routine Cerebrovascular accident (CVA), unspecified mechanism (CMS/HCC) Exp ected: 10/24/2024 (Approximate), Expires: 10/24/2025[facility] HealthcareComment on above:Expected: 10/24/2024 (Approximate), Expires: 10/24/2025Start: 10-24-2024 End: 56-63-4467Lwsujeblxke [Units/volume] in Serum or PlasmaTSH Lab Routine Hypothyroidism, unspecified type (CMS/HCC) Expected: 10/24/2024 (Approximate), Expires: 10/24/2025[facility] Work Phone: Comment on above:Expected: 10/24/2024 (Approximate), Expires: 10/24/2025Start: 10-24-2024 End: 96-60-6894Alxlehgrt (T4) free [Mass/volume] in Serum or PlasmaT4, free Lab Routine Hypothyroidism, unspecified type (CMS/HCC) Expected: 10/24/2024 (Approximate),Expires: 10/24/2025[facility] HealthcareComment on above:Expected: 10/24/2024 (Approximate), Expires: 10/24/2025Start: 75-09-1815Pvrciop referral [facility] Work Phone: Start: 66-78-8954C8T test (Diabetic or Prediabetic)A1C test (Diabetic or Prediabetic)[facility], [facility]: 71-78-2229QXZ testing TSH testingThe Surgical Hospital At Southwoods [facility]WebNOR[facility]ST [facility], NEStart: 01-16-2020 End: 62-05-0008Ikucvrd encounter ssolfdunz48/02/2020 Office Visit Infectious Diseases Chris Russo MD [address] [id number] [facility]. Start: 11-21-2019 End: 70-24-5181Pdwffuk encounter onmzhljfo82/06/2020 Office Visit Pulmonology Juanjo Coates MD [address] [facility] [address] [place], [place] [phone] [facility] OUTREACH PULMStart: 10-24-2019 End: 29-80-6214Lwvomk VisitInfectious Disease Associates of [facility], [facility].Comment on above:Acute bloody pericarditis (Primary Dx); Coxsackie virus infection; Pneumonia of left lower lobe due to infectious organism (HCC); Pleural effusion on left; Type 2 diabetes mellitus without complication, without long-term current use of insulin (HCC)Start: 09-26-2019 End: 09-83-3361Piiqad Visit09/26/2019 Office Visit Pulmonology Juanjo Coates MD [address] [address] [phone] Specialist Outreach OmahaStart: 73-36-2231Nqdkcevsh vaccinationFlu vaccine (#1) [facility]: 35-79-0872Zmjenl cancer screenBreast cancer screen [facility]: 68-63-1607Rzbnw cancer screen colonoscopyColon cancer screen colonoscopyGalion Community Hospital: 59-67-6210Zdjgndgm Vaccine (1 of 2)Shingles Vaccine (1 of 2)[facility]: 53-08-9247Lyxnxxkv cancer screenCervical cancer screenGalion Community Hospital: 94-97-2970Myyfjdob microalbuminuria testDiabetic microalbuminuria testGalion Community Hospital: 71-49-0899KZQ screenHIV screenGalion Community Hospital: 16-88-8294SJvG/Tdap/Td vaccine (1 - Tdap)DTaP/Tdap/Td vaccine (1 - Tdap)[facility]: 1966[object Object]Diabetic foot examGalion Community Hospital: 1966 Diabetic retinal examDiabetic retinal examGalion Community Hospital: 1966 Lipid screenLipid screenGalion Community Hospital: 74-16-9983Kpolvgdzzcva 0-64 years Vaccine (1 of 1 - PPSV23)Pneumococcal 0-64 years Vaccine (1 of 1 - PPSV23) [facility]: 07-95-8120Wncaxwhou C screenHepatitis C [facility]: 99-82-5994Omntwewvg for malignant neoplasm of colonNOMS Healthcare End: 17-38-3426Ovktgkibh B Virus AbsCoxsackie B Virus Abs Lab Routine Coxsackie virus infection 1 Occurrences starting 09/18/2019 until09/18/2019[place], [place]:1 Occurrences starting 09/18/2019 until 09/18/2019 [place] B Virus AbsW[place], [place] End: 27-59-9225Qhweawekn B Virus AbsCoxsackie B Virus Abs Lab Routine Coxsackie virus infection 1 Occurrences starting 10/24/2019 until10/24/2019[facility] Work Phone: comment on above:1 Occurrences starting 10/24/2019 until 10/24/2019[facility] Work Phone: Payers DatePayer CategoryPayerPolicy [id number] Health InsuranceMEDICAL MUTUAL [id number] 2021MedicareMEDICARE [id number] [facility] xxxxxxxxxxx 2018-Present [phone] [address] [place], [place] [address]igyioesneau 1.2.840.712906.1.13.239.2.7.3.136985.315 [id number] [id number] 1959Unknown [id number] 2.0.1.325125.3.579.2. [id number] 2.0.1.249983.3.57[id number] 2.0.1.610921.3.57[id number] 2.840.1.730647.3.57[id number] 2.0.1.322957.3.57[id number] 2.840.1.546460.3.579.2.[id number] 2.0.1.995370.3.57[id number] 2.840.1.944328.3.57[id number] 2.840.1.038861.3.579.[id number] 2.16.840.1.046330.3.57[id number] 2.16.840.1.723433.3.57[id number] 2.16.840.1.843550.3.57[id number] 2.16.840.1.524417.3.57[id number] 2.16.840.1.245194.3.57[id number] 2.16.840.1.892539.3.579.2.183757-19-3254Dfamjym9229978 2.16.840.1.080978.3.57[id number] 2.16.840.1.139809.3.579.2.1259 Social History DateTypeDetailFacilityStart: 09-04-2019 End: 29-12-1717Otbqjdy smoking status NHISNever smokerGal[facility]: 09-[facility]-2019 End: [id number] intakeEx-drinker (finding)[facility]: [id number] Assigned At BirthNot on fileGalion Community Hospital: 05-20-2024 End: [id number] [facility]igned At [facility] HealthcareStart: 40-51-3654Hnu Assigned At [facility] [place]: [phone] use and exposureSmokeless tobacco non-userNOMS HealthcareStart: 08-23-2024 End: 94-76-7313Iqgiiqslr beverage intakeCurrent drinker of alcohol (finding)[facility] HealthcareStart: 05-20-2024 End: 90-33-8301Fzfkxei of Social functionNOMS HealthcareHow often do you need to have someone help you when you read instructions, pamphlets, or other written material from your doctor or pharmacy [SILS]NeverNOMS HealthcareHow often to you have a drink containing alcohol?2-4 times a monthNOMS HealthcareHow many standard drinks containing alcohol do you have on a typical day?1 or 2NOMS HealthcareHow often do you have 6 or more drinks on 1 occasion?NeverNOMS HealthcareIn the past 12 months, was there a time when you were not able to pay the mortgage or rent on time?NoNOMS HealthcareStart: 35-58-9414Dvvogeb Comment drinks caffineNOMS HealthcareStart: 18-20-4102Hpning identityIdentifies as female gender (finding)[facility] Medical Equipment Procedure CodeEquipment CodeEquipment Original TextEquipment IdentifierDates Inject 1 each under the skin DailyStart: 03-14-2024 Functional Status CeknLvoou[id number] Health Questionnaire 2 item (PHQ- 2) [Reported][facility] Clinical Notes 08-02-2023 to 05-29-2025 Note Date & [id number] History of Present illness Narrative* Halle Figueroa DO - 05/29/2025 10:11 AM EDTAssociated Problem(s): Type 2 diabetes mellitus with other [...] current care plan and goals were discussed. Acopy of this along with pertinent instructions were given to the patient at the end of the appointment. The patient voices understanding of all of this and is to call in between appointments if they have any problems or questions. Tanya Blake is doing very well and encouraged on this. , Will stay on current medications. 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) Acute bloody pericarditis (HHS-HCC) Coxsackie virus infection Pericardial effusion (HHS-HCC) Primary hypertension Anxiety and depression Encounter for screening mammogram for malignant neoplasm of breast CVA (cerebral vascular accident) (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) Type 2 diabetes mellitus with stage 3a chronic kidney disease, with long-term current use of insulin ([facility]) Follow up in about 6 months (around [...] with the patient today. documented in this encounterSalem Memorial District [id number] History of Present illness Narrative* TANIYA KENNEY - 03/12/2025 3:20 PM EDT Pt would like a vit D refill 02 stats range 89-93 wheezing Pt states she does not feel SOB or tightness in her chest * Monikamarisa Castillo, BOILER ERECTOR - 03/12/2025 3:20 PM EDT Images from [...] GLP 1 for diabetes documented in this [facility]05-28-2025 Instructions* Patient Instructions* Monika Castillo NP - 03/12/2025 3:20 PM EDT Increase escitalopram to 20mg documented in this [facility]03-13-2025 History of Present illness Narrative* Halle Figueroa DO - 12/26/2024 11:26 AM EDTAssociated Problem(s): Type 2 diabetes mellitus with other [...] current care plan and goals were discussed. 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) Acute bloody pericarditis Coxsackie virus infection Pericardial effusion Primary hypertension (CMS/HCC) Anxiety and depression (CMS/[facility]) Encounter for screening mammogram for malignant neoplasm of breast CVA (cerebral vascular accident) ([facility]) Encounter for subsequent annual wellness visit (AWV) in Medicare patient Class 1 obesity due to excess calories in adult Chronic left shoulder pain long-term (current) use of insulin (CMS/HCC) Other specified diabetes mellitus without complications (CMS/HCC) Hypocalcemia Vitamin D deficiency Social History Tobacco [...] skin every 7 (seven) days Labs [facility] HEMOGLOBIN A1C/HEMOGLOBIN.TOTAL:MFR:PT:BLD:QN: 6.9 Outpatient prescription Medication marked [...] 2 diabetes mellitus with other circulatory complications ([facility]) During the appointment today all pertinent labs, imaging, health maintenance, and glucose readings were reviewed. Encouraged to check blood glucose throughout the day with some fasting and some PP readings. They are to bring their glucose meter/cgm in to all appointments. All of the patients questions, treatment options, and current care plan and goals were discussed. 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) (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) Follow up in about 4 months [...] with the patient today. documented in this encounterSalem Memorial District [id number] History of Present illness Narrative* Mary Kay Womack NP - 11/20/2024 2:45 PM ESTAssociated Order(s): L Inj/Asp: L subacromial bursa Post-Procedure Diagnose(s): Impingement of left shoulder Images from the original note were not included. NAME: Tanya Blake : 1955 HISTORY OF PRESENT ILLNESS: NEW PT Tanya Blake is an 69 y.o. @ female. (NEW PT) MONIKA CASTILLO REFERRAL. LT SHOULDER PAIN ~4 MTHS (07/2024), SLIPPED ON STEPS AND CAME BACKAND HIT WALL. XRAY TODAY EPIC 11/20/24 PAIN ANTERIOR SHOULDER. INTERMITTENT, DEPENDING ON WHAT SHE IS DOING. CAN RADIATE DOWN TO FOREARM. ALSO FEELS OCCAS PULL IN CHEST. +TYL ARTHRITIS DAILY. +ICE PRN. UNABLE TO LAY ON IT. LIMITED ROM. TIGHTNESS. DENIES N/T. OCCAS GETS PAIN IN THUMB. DENIES SWELLING. DENIES POPPING/GRINDING. NOTES HER HAND WILL RANDOMLY SHAKE AT TIMES. 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 PAST MEDICAL HISTORY: Past Medical [...] bony process left shoulder. 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 Needle localization with image capture s aved to the permanent record. This process facilitates [...] for requiring urgent evaluation. documented in this [facility]01-29-2025 Telephone encounter Note* Telephone Encounter - Monika Castillo NP - 11/13/2024 6:22 PM EST Sent in script for vit d 3 N[facility] [id number] Miscellaneous Notes* Telephone Encounter - Monika Castillo NP - 11/13/2024 6:22 PM EST Sent in script for vit d 3 documented in this [facility]01-09-2025 History of Present illness Narrative* Monika Castillo NP - 10/24/2024 4:45 PM ESTAssociated Problem(s): Chronic left shoulder pain Suspect more bursitis, not cuff pathology Had ortho appt cancelled it, she will call them back to schedule * Monika Castillo NP - 10/24/2024 4:44 PM ESTAssociated Problem(s): Hypothyroidism (CMS/HCC) Is currently taking her levo, however is feeling more fatigue Will check labs to see where TSH stands also check CBC and chem 8 * Monika Castillo NP - 10/24/2024 3:23 PM ESTAssociated Problem(s): Pericardial effusion Does not want to follow with cardiology in [place] Had stress and ECHO late 2022, EF >55% * Monika Castillo NP - 10/24/2024 3:22 PM ESTAssociated Problem(s): CVA (cerebral vascular accident) ([facility]) Plavix and asa * TANIYA KENNEY - 10/24/2024 2:40 PM EST Pt provider who takes care of her [...] related to any of her past falls * Monika Castillo NP - 10/24/2024 2:40 PM EST Tanya Blake is a 69 y.o. female [...] suicidal ideas, suicidal planning, thoughts of and weightloss. Frequency of symptoms: occasionally Severity: mild Sleep [...] Negative for appetite change, chills, fever, irritability andweight loss. 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) (CMS/[facility]) Check blood sugars daily, notify if <70 or >200. Take medications (pills or insulin) as directed. Monitor for s/s of hypoglycemia (sweaty, dizziness, nausea, vomiting, or shakiness). Watch for increase in thirst, urination, or appetite. Inspect feet frequently monitoring for open wounds , andalso recommend yearly eye exam. Pt should attempt to remain as physically active as chronic conditions allow, as well as trying to follow a diet low in carbohydrates, and simple sugars. Continues with dr figueroa Current meds: ozempic, insulin, glipizide, statin Pericardial effusion Does not want to follow with cardiology in [place] Had stress and ECHO late 2022, EF >55% Primary hypertension (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) Cont with dr figueroa * Monika Castillo NP - 10/24/2024 7:26 AM ESTAssociated Problem(s): Anxiety and depression (CMS/[facility]) Is currently taking lexapro, no dose change at this time Has a new puppy which is helping * Monika Castillo NP - 10/24/2024 7:26 AM ESTAssociated Problem(s): Other specified diabetes mellitus without complications (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) (CMS/[facility]) Check blood sugars daily, notify if <70 or >200. Take medications (pills or insulin) as directed. Monitor for s/s of hypoglycemia (sweaty, dizziness, nausea, vomiting, or shakiness). Watch for increase in thirst, urination, or appetite. Inspect feet frequently monitoring for open wounds , andalso recommend yearly eye exam. Pt should attempt to remain as physically active as chronic conditions allow, as well as trying to follow a diet low in carbohydrates, and simple sugars. Continues with dr figueroa Current meds: ozempic, insulin, glipizide, statin * Monika Castillo NP - 10/24/2024 7:22 AM ESTAssociated Problem(s): Primary hypertension ([facility]) Please check blood pressure daily and record DASH diet Limit caffeine Take medication as directed Contact office if chest pain, pressure, dizziness, shortness of breath, swelling legs Recommend slow position changes Current meds: amlodipine, carvedilol, documented in this [facility]01-09-2025 Instructions* Patient Instructions* Monika Castillo NP - 10/24/2024 2:40 PM EST Check thyroid lab to make sure thyroid is ok, Call ortho for appt documented in this [facility]11-08-2024 History of Present illness Narrative* Halle Figueroa DO - 08/23/2024 10:47 AM ESTAssociated Problem(s): Type 2 diabetes mellitus with other [...] current care plan and goals were discussed. Acopy of this along with pertinent instructions were [...] she will be really active that day. * Halle Figueroa DO - 08/23/2024 10:15 AM EST Images from the original note were not [...] ALLERGIES: Patient Active Problem List Diagnosis Hypothyroidism ([facility]) Type 2 diabetes mellitus with other circulatory complications (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) ([facility]) Acute bloody pericarditis Coxsackie virus infection Pericardial effusion Primary hypertension ([facility]) URI, acute Anxiety and depression ([facility]) Encounter for screening mammogram for malignant neoplasm of breast CVA (cerebral vascular accident) ([facility]) Encounter for subsequent annual wellness visit (AWV) in Medicare patient Class 1 obesity due to excess calories in adult Chronic left shoulder pain Long-term insulin use ([facility]) Social History Tobacco Use Smoking status: [...] 2 diabetes mellitus with other circulatory complications ([facility]) During the appointment today all pertinent labs, imaging, health maintenance, and glucose readings were reviewed. Encouraged to check blood glucose throughout the day with some fasting and some PP readings. They are to bring their glucose meter/cgm in to all appointments. All of the patients questions, treatment options, and current care plan and goals were discussed. 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) - Primary Long-term insulin use ([facility]) Follow up in about 4 months [...] with the patient today. documented in this encounterSalem Memorial District [id number] Evaluation note* Encounter Date Diagnosis Assessment Notes Treatment Notes Treatment Clinical Notes Oct, Depression with anxiety (ICD-10 - F41.8) [employer] Other 12-12-2023 Evaluation note* Encounter Date Diagnosis Assessment Notes Treatment Notes Treatment Clinical Notes Sep, Bronchitis (ICD-10 - J40) discussed her hx of several episodes of pneumonia and her daughter's decreased immune system. No crackles or wheezing on exam. Will treat empirically before her symptoms worsen. If they do, she understands to call for CXR or go to ER. [employer] Other 10-18-2023 Evaluation note* Encounter Date Diagnosis Assessment Notes Treatment Notes Treatment Clinical Notes Jul, Depression with anxiety (ICD-10 - F41.8) [employer] Other Evaluation note* Diagnosis Pleural effusion on left Unspecified pleural effusion documented in this encounter [employer] Phone: evalcfgtpd note* Diagnosis Coxsackie virus infection Coxsackievirus infection in conditions classified elsewhere and of unspecified site documented in this encounter [employer] Phone: evaluation noteNo InformationNortHospital of the [facility] [employer] Other Evaluation note* Diagnosis Onset Date Resolution Status Type II diabetes mellitus [facility] Work Phone: Evaluation note* Diagnosis 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/HCC)- Primary 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) (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) ([facility]/HCC)- Primary 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/HCC) Long-term insulin use ([facility]/HCC) documented in this encounter [facility] HealthcareEvaluation note* Diagnosis 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/HCC)- Primary 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) ([facility]/HCC) Anxiety and depression (CMS/HCC)- Primary Hypothyroidism, unspecified type (CMS/HCC) 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/HCC) Primary hypertension ([facility]/HCC) Unspecified essential hypertension URI, acute Acute upper [...] diabetes mellitus with other circulatory complications (CMS/HCC) long-term (current) use of insulin (CMS/HCC) Other specified diabetes mellitus without complications (CMS/HCC) 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) ([facility]/HCC) Anxiety and depression (CMS/HCC) Hypothyroidism, unspecified type (CMS/HCC) Pericardial effusion Unspecified disease of pericardium Cerebrovascular accident (CVA), unspecified mechanism (CMS/HCC) Chronic left shoulder pain Pain in joint, shoulder region documented in this encounter [facility] HealthcareEvaluation note* Diagnosis 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/HCC)- Primary 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) ([facility]/HCC) Anxiety and depression (CMS/HCC)- Primary Hypothyroidism, unspecified [...] diabetes mellitus with other circulatory complications (CMS/HCC) 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 insulin (CMS/HCC) Other specified diabetes mellitus without complications (CMS/HCC) 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) Anxiety and depression (CMS/HCC) Hypothyroidism, unspecified type (CMS/HCC) Pericardial effusion Unspecified disease of pericardium Cerebrovascular accident (CVA), unspecified mechanism (CMS/HCC) Chronic left shoulder pain Pain in joint, shoulder region Hypocalcemia- Primary documented in this encounter [facility] HealthcareEvaluation note* Diagnosis Type 2 diabetes mellitus [...] diabetes mellitus with other circulatory complications (CMS/HCC) 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 insulin (CMS/HCC) Other specified diabetes mellitus without complications (CMS/HCC) 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) Anxiety and depression (CMS/HCC) Hypothyroidism, unspecified type (CMS/HCC) Pericardial effusion Unspecified disease of pericardium Cerebrovascular accident (CVA), unspecified mechanism (CMS/HCC) Chronic left shoulder pain Pain in joint, shoulder region Vitamin D deficiency- Primary documented in this encounter [facility] HealthcareEvaluation note* Diagnosis 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/HCC)- Primary 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) ([facility]/HCC) Anxiety and depression (CMS/HCC)- Primary Hypothyroidism, unspecified type (CMS/HCC) 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/HCC) Primary hypertension ([facility]/HCC) Unspecified essential hypertension URI, acute Acute upper [...] (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) (HCC) ([facility]/HCC) 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) Anxiety and depression (CMS/HCC) Hypothyroidism, unspecified type (CMS/HCC) Pericardial effusion Unspecified disease of pericardium Cerebrovascular accident (CVA), unspecified mechanism (CMS/HCC) Chronic left shoulder pain Pain in joint, shoulder region Vitamin D deficiency documented in this encounter [facility] HealthcareEvaluation note* Diagnosis Type 2 diabetes mellitus [...] diabetes mellitus with other circulatory complications (CMS/HCC) long-term (current) use of insulin (CMS/HCC) Other specified diabetes mellitus without complications (CMS/HCC) 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) Anxiety and depression (CMS/HCC) Hypothyroidism, unspecified type (CMS/HCC) Pericardial effusion Unspecified disease of pericardium Cerebrovascular accident (CVA), unspecified mechanism (CMS/HCC) Chronic left shoulder pain Pain in joint, shoulder region Vitamin D deficiency documented in this encounter [facility] HealthcareEvaluation note* Diagnosis 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/HCC)- Primary 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) ([facility]/HCC) Anxiety and depression (CMS/HCC)- Primary Hypothyroidism, unspecified [...] (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) (HCC) ([facility]/HCC) 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) ([facility]/HCC)- Primary 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/HCC) Long-term insulin use (CMS/HCC) Primary hypertension (CMS/HCC)- Primary Unspecified essential hypertension 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/HCC) long-term (current) use of insulin (CMS/HCC) Other specified [...] diabetes mellitus with other circulatory complications (CMS/HCC) 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) ([facility]) Anxiety and depression ([facility])- Primary Hypothyroidism, unspecified type ([facility]) Type 2 diabetes mellitus with other circulatory complications Primary hypertension (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) ([facility])- Primary Type 2 diabetes mellitus with other circulatory complications Long-term insulin use ([facility]) Primary hypertension ([facility])- Primary Unspecified essential hypertension Type 2 diabetes mellitus with other circulatory complications long-term (current) use of insulin (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) ([facility]) Anxiety and depression ([facility]) Hypothyroidism, unspecified type ([facility]) Pericardial effusion Unspecified disease of pericardium Cerebrovascular accident (CVA), unspecified mechanism (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) ([facility])- Primary Type 2 diabetes mellitus with other circulatory complications 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 insulin ([facility]) Primary hypertension (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) ([facility]) Anxiety and depression ([facility])- Primary Hypothyroidism, unspecified type ([facility]) Type 2 diabetes mellitus with other circulatory complications Primary hypertension (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)- Primary Type 2 diabetes mellitus with other circulatory complications Long-term insulin use (CMS/HCC) Primary hypertension ([facility]/HCC)- Primary Unspecified essential hypertension Type 2 diabetes mellitus with other circulatory complications 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 insulin (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) Anxiety and depression ([facility]) Hypothyroidism, unspecified type ([facility]) Pericardial effusion Unspecified disease of pericardium Cerebrovascular accident (CVA), unspecified mechanism (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)- Primary Type 2 diabetes mellitus with other circulatory complications 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 insulin ([facility]) Anxiety and depression ([facility])- Primary Class 1 obesity due to excess calories with serious comorbidity and body mass index (BMI) of 31.0 to 31.9 in adult Hypothyroidism, unspecified type ([facility]) Encounter for screening mammogram for malignant neoplasm of breast Primary hypertension (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) Anxiety and depression- Primary Hypothyroidism, unspecified type [...] diabetes mellitus with other circulatory complications (HCC) 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) Other specified [...] diabetes mellitus with other circulatory complications (HCC) 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) Anxiety and [...] right ankle pain documented in this encounter [facility] HealthcareEvaluation note* Diagnosis Type 2 [...] diabetes mellitus with other circulatory complications (HCC) long-term (current) use of insulin (HCC) Other specified [...] diabetes mellitus with other circulatory complications (HCC) long-term (current) use of insulin (HCC) Anxiety and [...] diabetes mellitus with other circulatory complications (HCC) long-term (current) use of insulin (HCC) Type 2 diabetes mellitus with stage 3a chronic kidney disease, with long-term current use of insulin (HCC) documented in this encounter [facility] HealthcareEvaluation note* Diagnosis Type 2 [...] diabetes mellitus with other circulatory complications (HCC) 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) Other specified [...] diabetes mellitus with other circulatory complications (HCC) long-term (current) use of insulin (HCC) Anxiety and [...] diabetes mellitus with other circulatory complications (HCC) 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) Type 2 diabetes mellitus with stage 3a chronic kidney disease, with long-term current use of insulin (HCC) Right foot pain- Primary Pain in soft tissues of limb documented in this encounter [facility] HealthcareHistory general Narrative - Reported* Type Description Date Medical History Type 2 diabetes mellitus without complications Medical HistoryAcquired hypothyroidismMedical HistoryDepressionMedical History Essential (primary) hypertensionMedical HistoryIrritable bowel syndrome with both constipation and diarrheaMedical HistoryFatigueSurgical HistoryHYST BSO Surgical HistoryRIGHT KNEE ARTHROSCOPY/MENISECTOMYSurgical HistoryFOOT SURGERY Hospitalization HistorySEE [facility] Other Hospital Discharge instructionsAmbulatory Orders* Referral to Diabetes Management Time Frame: 01/25/24, Location: [facility] Work Phone: Assessments Diagnosis Coxsackie virus infection Coxsackievirus infection in conditions classified elsewhere and of unspecified site Diagnosis S/P pericardial window creation Pericardial effusion Unspecified disease of pericardium Advance Directives TypeDate RecordedPatient RepresentativeExplanationAdvance Directives and Living WillPower of AttorneyCode StatusDate ActivatedDate InactivatedCommentsFull Code 08/21/2019 9:02 AM08/24/2019 9:24 PMFull Code08/16/2019 8:23 AM08/21/2019 9:01 AM Full Code08/12/2019 10:41 PM08/16/2019 8:23 AMTypeDate RecordedPatient RepresentativeExplanationAdvance Directives and Living WillPower of AttorneyCode StatusDate ActivatedDate InactivatedCommentsFull Code08/21/2019 9:02 AM08/24/2019 9:24 PMFull Code08/16/2019 8:23 AM08/21/2019 9:01 AMFull Code08/12/2019 10:41 PM 08/16/2019 8:23 AM Advance Directive Response Recorded Date/ Time Advance Directives No January 24, 2 024 10:20am Summary Purpose Family History Relationship Condition Age at Onset Recorded Date/T vega daughter Malignant neoplasm Unknown fatherDeceasedUnknownHeart diseaseUnknownNot SpecifiedDeceasedUnknown Reason for Referral StatusReasonSpecialtyDiagnoses / ProceduresReferred By ContactReferred To ContactClosedCardiology Diagnoses S/P pericardial window creation Pericardial effusion Procedures ECHO Limited HC 2-D ECHOCARDIOGRAM LTD OR FOLL HC 2D ECHO WITHOUT CONTRAST - WITH DOP/COLOR FLOW Manolo Conklin PA [address] [facility] [address] [address] Chief Complaint and Reason for Visit Chief Complaint Amb Documentation BS discussionReason for VisitType II diabetes mellitus Additional Source Comments INFORMATION SOURCE (unrecogn ized section and content) DATE CREATED AUTHOR 11/02/2019 [facility] DATE CREATED AUTHOR AUTHOR'S ORGANIZ ATION 03/24/2023 [facility] DATE CREATED AUTHOR AUTHOR'S ORGANIZ ATION 08/21/2023 [facility] DATE CREATED AUTHOR AUTHOR'S ORGANIZ ATION 05/31/2025 [facility] EPIC Reason for Visit (unrecogniz ed section and content) StatusReasonSpecialtyDiagnoses / ProceduresReferred By ContactReferred To ContactClosedCardiology Diagnoses S/P pericardial window creation Pericardial effusion Procedures ECHO Limited HC 2-D ECHOCARDIOGRAM LTD OR FOLL HC 2D ECHO WITHOUT CONTRAST - WITH DOP/COLOR FLOW Manolo Conklin PA [address] [facility] [address] [address] ReasonCommentsDiabetesReasonCommentsAnxietyReasonCommentsPainReasonOnset Date CommentsMed Tujtib1812/06/2024ReasonCommentsMed RefillReasonCommentsHypertension Care Teams (unrecognized sec tion and content) Team Status: Active Member Role Status Dates Cordell Masters MD Primary Care Provider Active Team Status: Active Member Role Status Dates Cordell Masters MD Primary Care Provider Active Start: January 01, 2024 Chago Hager ProviderActiveStart: January 01, 2024 Team Status: Inactive Member Role Status Dates Cordell Masters MD Primary Care Provide r, Attending Provider Active Start: January 25, 2024 End: January 25, 2024Team MemberRelationshipSpecialtyStart DateEnd Date Paul Lewis MD [address] [place] [address] PCP - [facility]05/01/24 Monika Castillo NP [address] [place] [address] [facility]04/03/24 Monika Castillo NP [address] [place] [address] Nurse [facility]05/01/24Team MemberRelationshipSpecialtyStart DateEnd Date Paul Lewis MD [address] [place] [address] PCP - [facility]05/01/24 Monika Castillo NP [address] [place] [address] [facility]04/03/24 Monika Castillo NP [address] [place] [address] Nurse [facility]05/01/24Team MemberRelationshipSpecialtyStart DateEnd Date Paul Lewis MD [address] [place] [address] PCP - [facility]05/01/24 Monika Castillo NP [address] [place] [address] Nurse [facility]04/03/24 Monika Castillo NP [address] [place] [address] Nurse [facility]05/01/24Team MemberRelationshipSpecialtyStart DateEnd Date Paul Lewis MD [address] [place] [address] PCP - [facility]05/01/24 Monika Castillo NP [address] [place] [address] [facility]04/03/24 Monika Castillo NP [address] [place] [address] Nurse [facility]05/01/24Team MemberRelationshipSpecialtyStart DateEnd Date Paul Lewis MD [address] [place] [address] PCP - [facility]05/01/24 Monika Castillo NP [address] [place] [address] Nurse [facility]04/03/24 Monika Castillo NP [address] [place] [address] Nurse [facility]05/01/24Team MemberRelationshipSpecialtyStart DateEnd Date Paul Lewis MD [address] [place] [address] PCP - [facility]05/01/24 Monika Castillo NP [address] [place] [address] Nurse [facility]04/03/24 Monika Castillo NP [address] [place] [address] Nurse [facility]05/01/24Team MemberRelationshipSpecialtyStart DateEnd Date Paul Lewis MD [address] [place] [address] PCP - [facility]05/01/24 Monika Castillo NP [address] [place] [address] Nurse [facility]04/03/24 Monika Castillo NP [address] [place] [address] Nurse [facility]05/01/24Team MemberRelationshipSpecialtyStart DateEnd Date Paul Lewis MD [address] [place] [address] PCP - [facility]05/01/24 Monika Castillo NP [address] [place] [address] [facility]04/03/24 Monika Castillo NP [address] [place] [address] Nurse [facility]05/01/24Team MemberRelationshipSpecialtyStart DateEnd Date Paul Lewis MD [address] [place] [address] PCP - [facility]05/01/24 Monika Castillo NP [address] [place] [address] [facility]04/03/24 Monika Castillo NP [address] [place] [address] Nurse [facility]05/01/24Team MemberRelationshipSpecialtyStart DateEnd Date Paul Lewis MD [address] [place] [address] PCP - [facility]05/01/24 Monika Castillo NP [address] [place] [address] Nurse [facility]04/03/24 Monika Castillo NP [address] [place] [address] Nurse [facility]05/01/24Team MemberRelationshipSpecialtyStart DateEnd Date Paul Lewis MD [address] [place] [address] PCP - [facility]05/01/24 Monika Castillo NP [address] [place] [address] [facility]04/03/24 Monika Castillo NP [address] [place] [address] Nurse [facility]05/01/24Team MemberRelationshipSpecialtyStart DateEnd Date Paul Lewis MD [address] [place] [address] PCP - [facility]05/01/24 Monika Castillo NP [address] [place] [address] [facility]04/03/24 Monika Castillo NP [address] [place] [address] [facility]05/01/24Team MemberRelationshipSpecialtyStart DateEnd Date Paul Lewis MD [address] [place] [address] PCP - [facility]05/01/24 Monika Castillo NP [address] [place] [address] Nurse [facility]04/03/24 Monika Castillo NP [address] [place] [address] Nurse [facility]05/01/24Team MemberRelationshipSpecialtyStart DateEnd Date Paul Lewis MD [address] [place] [address] PCP - [facility] Medicine05/01/24 Monika Castillo NP [address] [place] [address] Nurse [facility] Medicine04/03/24 Monika Castillo NP [address] [place] [address] Nurse [facility]05/01/24Team MemberRelationshipSpecialtyStart DateEnd Date Paul Lewis MD [address] [place] [address] PCP - [facility]05/01/24 Monika Castillo NP [address] [place] [address] Nurse [facility]04/03/24 Monika Castillo NP [address] [place] [address] Nurse [facility]05/01/24Team MemberRelationshipSpecialtyStart DateEnd Date Paul Lewis MD [address] [place] [address] PCP - [facility]05/01/24 Monika Castillo NP [address] [place] [address] Nurse [facility]04/03/24 Monika Castillo NP [address] [place] [address] Nurse Pract[facility]05/01/24Team MemberRelationshipSpecialtyStart DateEnd Date Paul Lewis MD [address] [place] [address] PCP - [facility]05/01/24 Monika Castillo NP [address] [place] [address] Nurse PractitionerJackson [facility] Centerly Medicine04/03/24 Monika Castillo NP [address] [place] [address] Nurse Pract[facility]05/01/24Team MemberRelationshipSpecialtyStart DateEnd Date Paul Lewis MD [address] [place] [address] PCP - [facility]05/01/24 Monika Castillo NP [address] [place] [address] Nurse [facility]04/03/24 Monika Castillo NP [address] [place] [address] Nurse Pract[facility]05/01/24Team MemberRelationshipSpecialtyStart DateEnd Date Paul Lewis MD [address] [place] [address] PCP - [facility]05/01/24 Monika Castillo NP [address] [place] [address] Nurse [facility]04/03/24 Monika Castillo NP [address] [place] [address] Nurse PractitionerFamiNortheast [facility] [place]05/01/24 Goals (unrecognized section and content) Goals may [...] BE BASED ON THE PRIMARY CLINICAL RECORDS. [facility]. provides no warranty or guarantee of the accuracy or completeness of information in this document.
--- OUTSIDE RECORDS SUMMARY | 2025-09-20 09:46 | XMS_ITS | Clinical Summary ---
Author Organization [facility] Address [address] [place] [address] Care Team Providers Care Station Cook Name Role Phone Monika Castillo NP Unavailable [phone] Paul Lewis MD Primary Care Provider [phone] Monika Castillo DIRECTOR SUPPLY CHAIN Unavailable [phone] Allergies No known active allergies Medications MedicationSigDispense QuantityRefillsLast FilledStart DateEnd DateStatus Semaglutide,0.25 or 0.5MG/DOS, (Ozempic, 0.25 or 0.5 MG/DOSE,) 2 MG/3ML solution pen-injector Inject 0.5 mg under the skin every 7 (seven) daysActive BD Pen Needle Lauren 2nd Gen 32G X 4 MM misc Inject 1 each under the skin Daily4Active ASPIRIN 81 PO Take 81 mg by mouth DailyActive glipiZIDE (Glucotrol) 10 MG tablet Indications:Type 2 diabetes mellitus with other circulatory complications (HCC) Take 1 tablet (10 mg) by mouth Daily 90 tablet 5Active amLODIPine (Norvasc) 10 MG tablet Indications:Primary hypertensionTake 1 tablet (10 mg) by mouth Daily 90 tablet 5Active atorvastatin (Lipitor) 80 MG tablet Indications:Type 2 diabetes mellitus with other circulatory complications (HCC) Take 1 tablet (80 mg) by mouth at bedtime 90 tablet 5Active carvedilol (Coreg) 25 MG tablet Indications:Primary hypertensionTake 1 tablet (25 mg) by mouth in the morning and 1 tablet (25 mg) in the evening. Take with meals. 180 tablet 105/28/2025Active levothyroxine (Synthroid, Levoxyl) 112 MCG tablet Indications:Hypothyroidism, unspecified typeTake 1 tablet (112 mcg) by mouth in the morning. Take before meals. 90 tablet 5Active escitalopram (Lexapro) 20 MG tablet Indications:Anxiety and depressionTake 1 tablet (20 mg) by mouth Daily 90 tablet 5Active insulin glargine (Lantus SoloStar) 100 UNIT/ML pen Indications:Type 2 diabetes mellitus with other circulatory complications (HCC) Inject 24 Units under the skin at bedtime 15 mL 5Active insulin glargine (Lantus SoloStar) 100 UNIT/ML pen Indications:Type 2 diabetes mellitus with other circulatory complications (HCC) Inject 24 Units under the skin at bedtime 15 mL Discontinued(Reorder)Hospital, Clinic, or Other Facility Administered MedicationOrdered DoseRouteFrequencyStart DateEnd DateStatus methylPREDNISolone acetate (DEPO-Medrol) injection 40 mg Indications:Impingement of left mgIXOnce PRN Imivfnycc97/04/2025 09/18/2025Ended Active Problems ProblemNoted DateDiagnosed DateType 2 diabetes mellitus with stage 3a chronic kidney disease, with long-term current use of cnalpfh8405/29/2025Right foot pain 05/21/2025ute right ankle pain05/21/2025Vitamin D fowfnugngc40/29/2025 Wrqtmcfvpufs17/24/2025Long term (current) use of wvilxht9610/24/2024Other specified diabetes mellitus without vhsmmalrymczl39/09/2025 Assessment & Plan (10/24/2024 7:26 AM EST): Cont with dr kaur Encounter for subsequent annual wellness visit (AWV) in Medicare patient 05/08/2024 Assessment & Plan (05/08/2024 4:32 PM EDT): I have reviewed Ht/Wt/BMI, I have reviewed recommended vaccines for patient's age, as well as all recommended screenings I have reviewed available care everywhere notes as well. I have recommended eating a balanced diet,as well as activity as chronic conditions allow It is recommended that the patient have a yearly eye exam, as well as twice a year dental exams Fu in this office for wellness on a yearly basis Class 1 obesity due to excess calories in adult05/08/2024 Assessment & Plan (03/12/2025 7:16 AM EDT): Discussed with patient their BMI (actual, verses recommended). We have also discussed lifestyle modifications: attempts to perform physical activity as chronic conditions allow, also to monitor dietary intake: increasing protein/fruits/veggies and lowering carb intake (unless contraindicated). Limit sodas, juices, and sugary drinks. Currently takes GLP 1 for diabetes Chronic left shoulder pain05/08/2024 Assessment & Plan (10/24/2024 4:45 PM EST): Suspect more bursitis, not cuff pathology Had ortho appt cancelled it, she will call them back to schedule Assessment & Plan (05/08/2024 4:54 PM EDT): Suspect more bursitis, and less rotator cuff Will send to ortho for possible injection and management of this CVA (cerebral vascular accident)04/08/2024 Assessment & Plan (10/24/2024 3:22 PM EST): Plavix and asa Encounter for screening mammogram for malignant neoplasm of altauz7304/04/2024 Overview (04/04/2024): 07/06/23: [facility] normal Acute bloody pericarditis ([facility]-HCC)04/03/2024 Assessment & Plan (04/03/2024 11:54 AM EDT): Follows every 6-12 months w cardiology Difficulty getting to her appt up in [place] d/t daughter being sick with pancreatic cancer ,cardiology will not fill her meds if they dont see her Primary ecguoxpbvins66/19/2024 Assessment & Plan (10/24/2024 7:23 AM EST): [...] notes from PCP and cardiology Anxiety and zijzuwexbz44/19/2024 Assessment & Plan (03/12/2025 7:18 AM EDT): [...] problems 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 Coxsackie virus odpgiechb15/08/4395Vsyiqyhsozwhmz28/30/2019 Assessment & Plan (03/12/2025 7:17 AM EDT): [...] dose Check labs Type 2 diabetes mellitus with other circulatory rlkestzpimxns25/30/2019 Assessment & Plan (05/29/2025 10:11 AM EDT): During the appointment today all [...] this. , Will stay on current medications. Assessment & Plan (12/26/2024 11:26 AM EDT): [...] snacks. They should also avoid any sugary drinks., Discussed importance of checking blood glucose regularly [...] as well as administration of this. Discussed signs/symptomsof hypoglycemia and treatment if needed. Will increase ozempic and work on getting her set up through patient assistance for this to help with cost. Pericardial effusion ([facility])08/13/2019 Assessment & Plan (10/24/2024 3:23 PM EST): Does not want to follow with cardiology in [place] Had stress and ECHO late 2022, EF >55% Resolved Problems ProblemNoted DateDiagnosed DateResolved DateLong-term insulin use08/23/2024 10/24/2024hronic bursitis of left rmnhbakr11/ Assessment & Plan (05/08/2024 4:53 PM EDT): Suspect bursitis URI, acute Assessment & Plan (04/03/2024 11:56 AM EDT): Will treat with atb d/t her co morbidities Augmentin, fluids, rest Fu if not better No acute distress at this time Encounters DateTypeDepartmentCare UwvdRjbxqatwzlc41/04/2025 10:15 AM ESTOffice Visit [facility] [place] [address] Charly Williamson T, DIRECTOR SUPPLY CHAIN Impingement of left shoulder (Primary Dx); Left shoulder pain, unspecified chronicity; Arthritis of left acromioclavicular joint09/18/20257226Rgagtt33/03/2025Travel 09/03/2025Refill [facility] [address] [place] [address] Halle Kaur, Type 2 diabetes mellitus with other circulatory complications (HCC)from Last 3 Months Family History Medical HistoryRelationNameCommentsHeart diseaseFatherClarence WilliamsCOPD MotherEva WilliamsCancerMotherEva WilliamsHeart diseaseMotherEva WilliamsOvarian cancerMotherEva WilliamsThyroid diseaseMotherEva WilliamsRelationNameStatus WeldjcidFwvhlqriDpjsa86- of pancreatic cancer at 47 years1- heart disease FatherClarence WilliamsDeceasedMotherEva PxbefzewMozyurluGwkBjtly86 had open heart surgery1- hypertension Social History Tobacco UseTypesPacks/DayYears UsedDateSmoking Tobacco: NeverSmokeless Tobacco: Never Tobacco Cessation:Counseling Given: Not Answered Alcohol UseStandard Drinks/WeekCommentsNot Currently0 (1 standard drink = 0.6 oz pure alcohol)drinks [id number] Health LiteracyAnswerDate RecordedHow often do you need to have someone help you when you read instructions, pamphlets, or other written material from your doctor or pharmacy?Never05/20/2024Social Connection and Isolation PanelAnswerDate RecordedIn a typical week, how many times do you talk on the phone with family, friends, or neighbors?Twice a week 05/20/2024How often do you get together with friends or relatives?Once a week 05/20/2024How often do you attend gnosticist or evangelical services?Patient declined 05/20/2024ctive Member of Clubs or OrganizationsNot on file05/20/2024ttends Club or Organization MeetingsNot on file05/20/2024Marital StatusNot on file 05/20/2024UDIT-CAnswerDate RecordedQ1: How often do you have a drink containing alcohol?2-4 times a month05/20/2024verage Number of DrinksNot on file05/20/2024 Frequency of Binge DrinkingNot on file05/20/2024HQ-2AnswerDate RecordedPatient Health Questionnaire-2 Vhjte555Housing Stability Vital SignAnswerDate RecordedIn the last 12 months, was there a time when you were not able to pay the mortgage or rent on time?No05/20/2024In the past 12 months, how many times have you moved where you were living?t any time in the past 12 months, were you homeless or living in a prison (including now)?No05/20/2024 CommentsUnknownSex and Gender InformationValueDate RecordedSex Assigned at BirthNot on fileLegal LhlEajjzg47/15/2023 6:52 PM EDTGender IdentityFemale 03/07/2024 8:36 AM EDTSexual OrientationNot on file Last Filed Vital Signs Vital SignReadingTime TakenCommentsBlood Stxsppzz076/8405/29/2025 9:37 AM EDT Ombjp753905/29/2025 9:37 AM NTVDxlfblpmaci61.6 ??C (97.9 ??F)05/29/2025 9:37 AM EDTRespiratory Dsor269903/12/2025 3:38 PM EDTOxygen Usllajbtkk44%05/29/2025 9:37 AM EDTInhaled Oxygen Concentration--Onekvb45.5 kg (190 lb 12.8 oz)05/29/2025 9:37 AM SHDRyavfa281.6 cm (5' 4 )05/29/2025 9:37 AM EDTBody Mass Index32.75 05/29/2025 9:37 AM EDT Plan of Treatment DateTypeDepartmentCare Team (Latest Contact Info)Suumjlsfshm67/12/2026 9:45 AM ESTOffice Visit [facility] [address] [place] [address] Halle Kaur, [address] [place] [address] Procedures Procedure NamePriorityDate/TimeAssociated DiagnosisCommentsPR ARTHROCENTESIS ASPIR&/INJ MAJOR JT/BURSA W/O GACfuowlr77/04/2025 3:55 PM EST Impingement of left shoulder from Last 3 Months Results * [place] ARTHROCENTESIS ASPIR&/INJ MAJOR JT/BURSA W/O US (09/18/2025 [...] given by the patient. Authorizing ProviderResult TypeResult StatusCharly Williamson NPIN CLINIC/BEDSIDE ORDERABLESFinal Result from Last 3 Months Insurance Care Teams Team MemberRelationshipSpecialtyStart DateEnd Date Paul eLwis MD [address] [place] [address] PCP - GeneralFamily Medicine05/01/24 Monika Castillo NP [address] [place] [address] Nurse PractitionerF[facility]04/03/24 Monika Castillo NP [address] [place] [address] Nurse Pract[facility]er[facility]05/01/24
--- OUTSIDE RECORDS SUMMARY | 2025-09-20 09:46 | XMS_ITS | Encounter Summary ---
Author Organization [facility] Address [address] [place] [address] Care Team Providers Care Hydraulic Lift Driver Name Role Phone Monika Castillo CYANIDE CASE HARDENER Unavailable [phone] Paul Lewis MD Primary Care Provider [phone] Monika Castillo CYANIDE CASE HARDENER Unavailable [phone] Encounter Details DateTypeDepartmentCare Team (Latest Contact Info)Gbzsilghglj63/04/2025Travel Social History Tobacco UseTypesPacks/DayYears UsedDateSmoking Tobacco: NeverSmokeless Tobacco: NeverAlcohol UseStandard Drinks/WeekCommentsNot Currently0 (1 standard drink = 0.6 oz pure alcohol)drinks kvypeemI1728 Health LiteracyAnswerDate RecordedHow often do you need [...] relatives?Once a week05/20/2024How often do you attend buddhist or orthodox services?Patient /05/2024ctive Member of Clubs or OrganizationsNot on file05/20/2024ttends Club or Organization MeetingsNot on file05/20/2024Marital StatusNot on file05/20/2024UDIT-CAnswerDate RecordedQ1: How often do you have a drink containing alcohol?2-4 times a month05/20/2024verage Number of DrinksNot on file05/20/2024Frequency of Binge DrinkingNot on file05/20/2024HQ-2AnswerDate RecordedPatient Health Questionnaire-2 Orbvr366Housing Stability Vital SignAnswerDate RecordedIn the last 12 [...] InformationValueDate RecordedSex Assigned at BirthNot on fileLegal LmzTryfyw73/15/2023 6:52 PM EDTGender Identity Jsaxmf0903/07/2024 8:36 AM EDTSexual OrientationNot on filedocumented as of this encounter Plan of Treatment DateTypeDepartmentCare Team (Latest Contact Info)Azsbgfzmtcz98/12/2026 9:45 AM ESTOffice Visit [facility] [address] [place] [address] Halle Kaur DO [address] [place] [address] documented as of this encounter Visit Diagnoses Not on filedocumented in this encounter Additional Health Concerns AssessmentNoted TimePHQ-9 Depression Total Score: 7005/08/2024 4:15 PM EDT documented as of this encounter Care Teams Team MemberRelationshipSpecialtyStart DateEnd Date Paul Lewis MD [address] [place] [address] PCP - GeneralFamily Medicine05/01/24 Monika Castillo NP [address] [place] [address] Nurse PractitionerFamily Medicine04/03/24 Monika Castillo NP [address] [place] [address] Nurse PractitionerFamily Medicine05/01/24documented as of this encounter
--- OUTSIDE RECORDS SUMMARY | 2025-09-20 09:46 | XMS_ITS | Encounter Summary ---
Author Organization [facility] Address [address] [place] [address] Care Team Providers Care Imaging Technologist Name Role Phone Monika Castillo SURVEY COORDINATOR Unavailable [phone] Paul Lewis MD Primary Care Provider [phone] Monika Castillo SURVEY COORDINATOR Unavailable [phone] Encounter Details DateTypeDepartmentCare Team (Latest Contact Info)Zrbaexhjkhm16/03/2025Travel Social History Tobacco UseTypesPacks/DayYears UsedDateSmoking Tobacco: NeverSmokeless Tobacco: NeverAlcohol UseStandard Drinks/WeekCommentsNot Currently0 (1 standard drink = 0.6 oz pure alcohol)drinks dyzomfjS9083 Health LiteracyAnswerDate RecordedHow often do you need [...] relatives?Once a week05/20/2024How often do you attend latter day or hindu services?Patient hjshedme14/05/2024ctive Member of Clubs or OrganizationsNot on file05/20/2024ttends Club or Organization MeetingsNot on file05/20/2024Marital StatusNot on file05/20/2024UDIT-CAnswerDate RecordedQ1: How often do you have a drink containing alcohol?2-4 times a month05/20/2024verage Number of DrinksNot on file05/20/2024Frequency of Binge DrinkingNot on file05/20/2024HQ-2AnswerDate RecordedPatient Health Questionnaire-2 Nsvlm873Housing Stability Vital SignAnswerDate RecordedIn the last 12 months, was there a time when you were not able to pay the mortgage or rent on time?No05/20/2024In the past 12 months, how many times have you moved where you were living?t any time in the past 12 months, were you homeless or living in a senior care (including now)?No 05/20/2024CommentsUnknownSex and Gender InformationValueDate RecordedSex Assigned at BirthNot on fileLegal CqgMeydct26/15/2023 6:52 PM EDTGender Identity Buoyru7503/07/2024 8:36 AM EDTSexual OrientationNot on filedocumented as of this encounter Plan of Treatment DateTypeDepartmentCare Team (Latest Contact Info)Rtnjfecxcqe45/12/2026 9:45 AM ESTOffice Visit [facility] [address] [place] [address] Halle Kaur DO [address] [place] [address] documented as of this encounter Visit Diagnoses Not on filedocumented in this encounter Additional Health Concerns AssessmentNoted TimePHQ-9 Depression Total Score: 7005/08/2024 4:15 PM EDT documented as of this encounter Care Teams Team MemberRelationshipSpecialtyStart DateEnd Date Paul Lewis MD [address] [place] [address] PCP - GeneralFamily Medicine05/01/24 Monika Castillo NP [address] [place] [address] Nurse PractitionerFamily Medicine04/03/24 Monika Castillo NP [address] [place] [address] Nurse PractitionerFamily Medicine05/01/24documented as of this encounter
[2025-09-20 10:12] LABS: Hematocrit 43.9 % (36.0-48.0); Hemoglobin 14.8 g/dL (12.0-16.0); Immature Granulocytes Abs Auto 0.04 10^3/uL (0.00-0.03); Immature Granulocytes Pct Auto 0.5 % (0.0-0.5); Lymphocytes Absolute Auto 2.1 10^3/uL (1.2-3.8); Mean Corpuscular HGB Conc 33.7 g/dL (29.9-35.2); Mean Corpuscular Hemoglobin 31.9 pg (26.7-34.0); Mean Corpuscular Volume 94.6 fL (81.0-99.0); Platelet Count 403 10^3/uL (150-450); Red Blood Count 4.64 10^6/uL (4.20-5.40); White Blood Count 8.3 10^3/uL (4.0-11.0)
[2025-09-20 10:22] LABS: Glucose Urine UA NEGATIVE (NEGATIVE)
[2025-09-20 10:26] LABS: Microalbum Creatinine Ratio Ur 59.2 mg/g (0.0-29.9)
[2025-09-20 10:30] LABS: Cast Seen? NONE SEEN #/LPF (NONE SEEN); Crystals Seen? None Seen #/HPF (None Seen)
[2025-09-20 10:57] LABS: Alanine Aminotransferase 25 U/L (14-59); Albumin Globulin Ratio 0.9; Albumin Level 3.7 g/dL (3.4-5.0); Alkaline Phosphatase 117 U/L (46-116); Anion Gap 11.1; Aspartate Amino Transferase 11 U/L (15-37); Blood Urea Nitrogen 13.0 mg/dL (7.0-18.0); Calcium 8.8 mg/dL (8.5-10.1); Carbon Dioxide 31.7 mmol/L (21.0-32.0); Chloride 101 mmol/L (98-107); Cholesterol 257 mg/dL (<=200); Estimated GFR (African America >60 (>=60 mL/min/1.73m^2); Estimated GFR (Non-African Ame >60 (>=60 mL/min/1.73m^2); Globulin 3.9 g/dL; Glucose 173 mg/dL (74-106); HDL Cholesterol 50 mg/dL (40-60); Potassium 3.8 mmol/L (3.5-5.1); Sodium 140 mmol/L (136-145); Total Protein 7.6 g/dL (6.4-8.2); Triglycerides 237 mg/dL (<=150); VLDL CHOLESTEROL 47.4 mg/dL
== END 2025-09-20 09:41 | disposition home or self-care (01) ==
LOC: LAB 09:42
PROVIDERS: PCP Nurse Practitioner; Visit Provider Nurse Practitioner
DX: K58.2 Mixed irritable bowel syndrome (principal); E11.65 Type 2 diabetes mellitus with hyperglycemia; I10 Essential (primary) hypertension; F41.8 Other specified anxiety disorders; E03.9 Hypothyroidism, unspecified
CPT/HCPCS: 36415; 80053; 80061; 81001; 82043; 82570; 84439; 84443; 85025

== ENCOUNTER 2025-09-29 10:44 | Outpatient (OUT) | payer MEDICARE, OTHER, SELFPAY ==
[2025-09-29 11:10] LABS: Glucose Urine UA NEGATIVE (NEGATIVE)
[2025-09-29 12:01] LABS: Cast Seen? NONE SEEN #/LPF (NONE SEEN); Crystals Seen? None Seen #/HPF (None Seen)
== END 2025-09-29 10:45 | disposition home or self-care (01) ==
PROVIDERS: PCP Nurse Practitioner; Visit Provider Nurse Practitioner
DX: R31.29 Other microscopic hematuria (principal)
CPT/HCPCS: 81001; 87086; 87088; 87186